=== PATIENT | female | born 2000 | race Caucasian/White ===

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

== ENCOUNTER → 2021-03-01 | Outpatient (CLI) | payer OTHER ==
[~2021-03-01] MED LIST changes: +ADV500INH INH; +ASCO500T PO
[2021-03-01 15:19] LABS: FOLATE 12.6 NG/ML
== END ==
LOC: M LAB 14:19
PROVIDERS: ATTEND Psychiatry & Neurology Neurology
DX: E53.8 Deficiency of other specified B group vitamins (principal); R26.89 Other abnormalities of gait and mobility

== ENCOUNTER → 2021-03-23 | Outpatient (CLI) | payer OTHER ==
[2021-03-23 13:46] LABS: INR 1.04; PARTIAL THROMBOPLASTIN TIME 29.6 SECONDS (24.2-38.5); PROTHROMBIN TIME 13.8 SECONDS (12.5-14.3)
[2021-03-23 14:15] LABS: ALBUMIN 4.5 GM/DL (3.2-5.2); ALT/SGPT 18 U/L (12-78); BILIRUBIN,DIRECT < 0.1 MG/DL (0.0-0.2); BILIRUBIN,TOTAL 0.3 MG/DL (0.2-1.0); CPK CREATINE PHOSPHOKINASE 45 U/L (26-192); FOLATE 17.2 NG/ML; IRON (FE) 79 UG/DL (50-170); PERCENT SATURATION 27.9 % (13.2-45.0); TOTAL IRON BINDING CAPACITY 283 UG/DL (250-450); TOTAL PROTEIN 7.6 GM/DL (6.4-8.2); VITAMIN B12 LEVEL 595 PG/ML
== END ==
LOC: M LAB 12:59
PROVIDERS: ATTEND Internal Medicine Gastroenterology
DX: R11.0 Nausea (principal)

== ENCOUNTER 2021-03-25 12:15 | Emergency (ER) | payer OTHER ==
[~2021-03-25] VITALS: Ht 172.7 cm; Wt 50.7 kg
[2021-03-25] MEDS ORDERED: ONDA4TAB6 (12:28)
[2021-03-25] MEDS ORDERED: MIRA3350 PO (12:28)
[2021-03-25] MEDS ORDERED: PEPC1TAB5 PO (12:28)
[2021-03-25] MEDS ORDERED: ACETAMINOPHEN TAB 650MG DOSE (2X325MG) PO ONE (13:05)
[2021-03-25] MEDS ORDERED: NS 1,000 ML IV ONE (13:05)
[2021-03-25 13:10] LABS: HEMATOCRIT 41.2 % (36.0-47.0); HEMOGLOBIN 13.8 g/dl (12.0-15.5); MEAN CORPUSCULAR HEMOGLOBIN 29.9 pg (27.0-33.0); MEAN CORPUSCULAR HGB CONC 33.5 g/dl (32.0-36.5); MEAN CORPUSCULAR VOLUME 89.4 fl (80.0-96.0); PLATELET COUNT, AUTOMATED 193 10^3/uL (150-450); RED BLOOD COUNT 4.61 10^6/uL (4.00-5.40); WHITE BLOOD COUNT 8.2 10^3/uL (4.0-10.0)
[2021-03-25 13:36] LABS: AMPHETAMINES LEVEL URINE NEGATIVE (NEGATIVE); BARBITURATES URINE NEGATIVE (NEGATIVE); BENZODIAZEPINES URINE NEGATIVE (NEGATIVE); CANNABINOIDS URINE NEGATIVE (NEGATIVE); COCAINE METABOLITE URINE NEGATIVE (NEGATIVE); METHADONE URINE NEGATIVE (NEGATIVE); OPIATES URINE NEGATIVE (NEGATIVE); PHENCYCLIDINE URINE NEGATIVE (NEGATIVE)
[2021-03-25 13:47] LABS: BLOOD UREA NITROGEN 6 MG/DL (7-18); CALCIUM LEVEL 9.1 MG/DL (8.5-10.1); CARBON DIOXIDE LEVEL 25 MEQ/L (21-32); CHLORIDE LEVEL 105 MEQ/L (98-107); CREATININE FOR GFR 0.72 MG/DL (0.55-1.30); FREE THYROXINE INDEX 1.7 % (1.3-4.8); GLUCOSE, FASTING 96 MG/DL (70-100); POTASSIUM SERUM 4.1 MEQ/L (3.5-5.1); SODIUM LEVEL 137 MEQ/L (136-145); T UPTAKE 26 % (30-39); THYROID STIMULATING HORMONE 0.772 uIU/ML (0.463-3.98); THYROXINE (T4) 6.4 UG/DL (6.0-11.6)
[2021-03-25 14:30] VITALS: BP 98/62
--- NOTE | 2021-03-25 17:14 | ECGEPIP ---
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
== END 2021-03-25 14:47 | disposition home or self-care (01) ==
LOC: M ED 12:15
DX: I49.8 Other specified cardiac arrhythmias (principal); R00.0 Tachycardia, unspecified; Z86.16 Personal history of COVID-19; Z82.49 Family history of ischemic heart disease and other diseases of the circulatory system; Z79.899 Other long term (current) drug therapy

== ENCOUNTER → 2021-03-28 | Outpatient (CLI) | payer OTHER ==
[~2021-03-28] MED LIST changes: +MIRA3350 PO; +ONDA4TAB6; +PEPC1TAB5 PO
== END ==
LOC: M LABSMTC 10:00
PROVIDERS: ATTEND Anesthesiology
DX: Z01.812 Encounter for preprocedural laboratory examination (principal); Z20.822 Contact with and (suspected) exposure to COVID-19

== ENCOUNTER 2021-04-02 13:43 | Day surgery (SDC) | payer OTHER ==
[~2021-04-02] VITALS: Ht 172.7 cm; Wt 48.1 kg
[~2021-04-02 13:43] MED LIST changes: +LIDOCAINE 2% 100MG/5ML SDV (FOR ANES.) As Ordered ONE; +NS 1,000 ML IV ONE; +propofoL 200 MG/20 ML VIAL As Ordered ONE
[2021-04-02] MEDS ORDERED: fentaNYL 100 MCG/2 ML INJECTION (J3010) As Ordered ONE (14:40)
[2021-04-02] MEDS ORDERED: LIDOCAINE 2% 100MG/5ML SDV (FOR ANES.) As Ordered ONE (15:09)
[2021-04-02] MEDS ORDERED: propofoL 200 MG/20 ML VIAL As Ordered ONE (15:09)
--- NOTE | 2021-04-02 15:28 | ROOR ---
Patient Name: Gerda Lee Procedure Date: 04/02/2021 2:59 PM Date of : 2000 Age: 20 Room: [facility] Gender: Female Note Status: Finalized Procedure: Upper GI endoscopy Indications: Dyspepsia, Weight loss Providers: Seth Mosquera MD Referring MD: Génesis Crane MD Requesting Provider: Medicines: Monitored Anesthesia Care Complications: No immediate complications. Procedure: Pre-Anesthesia Assessment: - Prior to the procedure, a History and Physical was performed, and patient medications and allergies were reviewed. The patient is competent. The risks and benefits of the procedure and the sedation options and risks were discussed with the patient. All questions were answered and informed consent was obtained. Patient identification and proposed procedure were verified by the physician, the nurse and the anesthesiologist in the procedure room. Mental Status Examination: alert and oriented. Airway Examination: normal oropharyngeal airway and neck mobility. Respiratory Examination: clear to auscultation. CV Examination: normal. Prophylactic Antibiotics: The patient does not require prophylactic antibiotics. Prior Anticoagulants: The patient has taken no previous anticoagulant or antiplatelet agents. ASA Grade Assessment: II - A patient with mild systemic disease. After reviewing the risks and benefits, the patient was deemed in satisfactory condition to undergo the procedure. The anesthesia plan was to use monitored anesthesia care (MAC). Immediately prior to administration of medications, the patient was re-assessed for adequacy to receive sedatives. The heart rate, respiratory rate, oxygen saturations, blood pressure, adequacy of pulmonary ventilation, and response to care were monitored throughout the procedure. The physical status of the patient was re-assessed after the procedure. The Endoscope was introduced through the mouth, and advanced to the second part of duodenum. The upper GI endoscopy was accomplished without difficulty. The patient tolerated the procedure well. Findings: The examined esophagus was normal. Scattered minimal inflammation characterized by erythema and granularity was found in the gastric antrum. Biopsies were taken with a cold forceps for Helicobacter pylori testing. Verification of patient identification for the specimen was done by the physician and nurse using the patient's name, date and medical record number. Estimated blood loss was minimal. The duodenal bulb, second portion of the duodenum, area of the papilla and third portion of the duodenum were normal. Biopsies for histology were taken with a cold forceps for evaluation of celiac disease. Impression: - Normal esophagus. - Gastritis. Biopsied. - Normal duodenal bulb, second portion of the duodenum, area of the papilla and third portion of the duodenum. Biopsied. Recommendation: - Patient has a contact number available for emergencies. The signs and symptoms of potential delayed complications were discussed with the patient. Return to normal activities tomorrow. Written discharge instructions were provided to the patient. - High fiber diet. - Continue present medications. - Await pathology results. - Return to GI clinic if persistent symptoms or new symptoms. - Telephone GI clinic for pathology results in 2 weeks. - Return to primary care physician. Procedure Code(s): --- Professional --- 01971, Esophagogastroduodenoscopy, flexible, transoral; with biopsy, single or multiple Diagnosis Code(s): --- Professional --- K29.70, Gastritis, unspecified, without bleeding R10.13, Epigastric pain R63.4, Abnormal weight loss CPT copyright 2019 [employer]. All rights reserved. The codes documented in this report are preliminary and upon camera repair technician review may be revised to meet current compliance requirements. Seth Mosquera MD Seth Mosquera MD 04/02/2021 3:27:50 PM Electronically signed by Seth Mosquera MD Number of Addenda: 0 Note Initiated On: 04/02/2021 2:59 PM Estimated Blood Loss: Estimated blood loss was minimal.
[2021-04-02 15:38] VITALS: BP 102/67
== END 2021-04-02 15:39 | disposition home or self-care (01) ==
LOC: M OPP 13:43
PROVIDERS: ATTEND Internal Medicine Gastroenterology
DX: K29.70 Gastritis, unspecified, without bleeding (principal); R10.13 Epigastric pain; R63.4 Abnormal weight loss; Z83.71 Family history of colonic polyps; Z79.899 Other long term (current) drug therapy
CPT/HCPCS: 43239; 88305; J3010

== ENCOUNTER → 2021-06-22 | Outpatient (CLI) | payer OTHER ==
[~2021-06-22] MED LIST changes: +AMIT-255 PO; +AMIT25TA17; -LIDOCAINE 2% 100MG/5ML SDV (FOR ANES.) As Ordered ONE; +METO5TAB2 PO; +MIRA1POW3 JT; +MIRA1POW3 PO; -NS 1,000 ML IV ONE; +PANT40TA29 PO; +PERCOCET PO; +PRUC2TAB; +PRUC2TAB PO; +PYRI60TA2; +PYRI60TA2 PO; +SIME40DR31 PO; -propofoL 200 MG/20 ML VIAL As Ordered ONE
[2021-06-22 18:27] LABS: BASO % 0.7 % (0.0-1.0); EOS # 0.1 10^3/uL (0.0-0.5); EOS % 2.4 % (0.0-3.0); HEMOGLOBIN 13.6 g/dl (12.0-15.5); LYMPH # 1.6 10^3/uL (1.5-5.0); LYMPH % 38.4 % (24.0-44.0); MEAN CORPUSCULAR HEMOGLOBIN 30.3 pg (27.0-33.0); MEAN CORPUSCULAR HGB CONC 33.2 g/dl (32.0-36.5); MEAN CORPUSCULAR VOLUME 91.3 fl (80.0-96.0); MONO # 0.4 10^3/uL (0.0-0.8); MONO % 8.8 % (2.0-8.0); NEUTROPHILS # 2.1 10^3/uL (1.5-8.5); NEUTROPHILS % 49.5 % (36.0-66.0); PLATELET COUNT, AUTOMATED 253 10^3/uL (150-450); RED BLOOD COUNT 4.49 10^6/uL (4.00-5.40); WHITE BLOOD COUNT 4.2 10^3/uL (4.0-10.0)
[2021-06-22 18:58] LABS: ALBUMIN 4.2 GM/DL (3.2-5.2); ALT/SGPT 23 U/L (12-78); BILIRUBIN,TOTAL 0.3 MG/DL (0.2-1.0); BLOOD UREA NITROGEN 10 MG/DL (7-18); CALCIUM LEVEL 9.3 MG/DL (8.5-10.1); CARBON DIOXIDE LEVEL 28 MEQ/L (21-32); CHLORIDE LEVEL 106 MEQ/L (98-107); CREATININE FOR GFR 0.64 MG/DL (0.55-1.30); FERRITIN 148 NG/ML (8-252); GLUCOSE, FASTING 90 MG/DL (70-100); IRON (FE) 78 UG/DL (50-170); PERCENT SATURATION 24.6 % (13.2-45.0); POTASSIUM SERUM 4.1 MEQ/L (3.5-5.1); SODIUM LEVEL 141 MEQ/L (136-145); TOTAL IRON BINDING CAPACITY 317 UG/DL (250-450); TOTAL PROTEIN 7.8 GM/DL (6.4-8.2)
== END ==
LOC: M LAB 16:57
PROVIDERS: ATTEND Internal Medicine Medical Oncology
DX: D50.9 Iron deficiency anemia, unspecified (principal)

== ENCOUNTER → 2021-08-31 | Outpatient (CLI) | payer OTHER ==
[~2021-08-31] MED LIST changes: -AMIT-255 PO; -AMIT25TA17; +E-Z-PAQUE 96% w/w SUSP 176GM BTL As Ordered ONE; -METO5TAB2 PO; -MIRA1POW3 JT; -MIRA1POW3 PO; -PANT40TA29 PO; -PERCOCET PO; -PRUC2TAB; -PRUC2TAB PO; -PYRI60TA2; -PYRI60TA2 PO; -SIME40DR31 PO
--- NOTE | 2021-08-31 16:48 | REP ---
INDICATION: K59.04 CHRONIC IDIOPATHIC CONSTIPATION. COMPARISON: None TECHNIQUE: This procedure was performed by YAMIL Bobo, under the direct supervision of Dr. Becker. Images were reviewed with Dr. Becker prior to dictation. Liquid barium was administered and the barium column was followed through the small bowel to the level of the terminal ileum. FINDINGS: The document processor film shows no organomegaly or pathological masses. The intestinal gas pattern is unremarkable. Small bowel transit time is approximately 180 minutes. During fluoroscopy gentle palpation shows all loops are freely movable and pliable. There is no fixed angulated loops. The small bowel mucosal pattern is normal in course and caliber. There is no transition to suggest a partial small bowel obstruction. Spot filming of the terminal ileum shows it to be unremarkable. IMPRESSION: Unremarkable small bowel follow-through with transit time of approximately 180 minutes. 0.8 minutes of fluoroscopy time was utilized for this procedure. Some fluoroscopic images are performed with last image hold technology. These images require no additional radiation. <Electronically signed by Yesica Summers > 08/31/21 [id number] <Electronically signed by Armen Becker > 08/31/21 [id number]
== END ==
LOC: M RAD 07:26
PROVIDERS: ATTEND Internal Medicine Gastroenterology
DX: K59.04 Chronic idiopathic constipation (principal)

== ENCOUNTER → 2021-09-14 | Outpatient (CLI) | payer OTHER ==
[~2021-09-14] MED LIST changes: -E-Z-PAQUE 96% w/w SUSP 176GM BTL As Ordered ONE
--- NOTE | 2021-09-14 14:01 | REP ---
INDICATION: K59.04 CHRONIC IDIOPATHIC CONSTIPATION. COMPARISON: None. TECHNIQUE/RADIOTRACER AND DOSE: Following the intravenous administration of 1.05 mCi technetium 99 M sulfur colloid in 2 scrambled eggs and 6 oz of water, multiple images of the upper abdomen are performed in the anterior and posterior projections for 90 minutes. FINDINGS: The gastric activity is measured. At the end of 90 minutes 22% of the ingested activity has emptied from the stomach. The T1/2 is 203 minutes which is elevated. IMPRESSION: Delayed gastric emptying. <Electronically signed by Armen Becker > 09/14/21 [id number]
== END ==
LOC: M RAD 11:30
PROVIDERS: ATTEND Internal Medicine Gastroenterology
DX: K59.04 Chronic idiopathic constipation (principal); K30 Functional dyspepsia
CPT/HCPCS: 78264; A9541

== ENCOUNTER 2021-12-29 13:57 | Inpatient (IN) | payer BC, SELFPAY ==
[~2021-12-29] VITALS: Ht 172.7 cm; Wt 45.9 kg
[2021-12-29] MEDS: ADVAIR HFA 230/21MCG INHALER INH SCH (01:28)
[~2021-12-29 13:57] MED LIST changes: -AMIT-255 PO; -AMIT25TA17; -MIRA1POW3 PO; -PRUC2TAB; -PRUC2TAB PO; -PYRI60TA2; -PYRI60TA2 PO
[2021-12-29] MEDS ORDERED: PRUC2TAB (14:04)
[2021-12-29] MEDS ORDERED: PYRI60TA2 (14:04)
[2021-12-29] MEDS ORDERED: AMIT25TA17 (14:04)
[2021-12-29] MEDS ORDERED: METOCLOPRAMIDE INJ 10MG/2ML VIAL (J2765 PER 1) IV ONE (17:45)
[2021-12-29] MEDS ORDERED: NS 1,000 ML IV ONE (17:45)
[2021-12-29 18:57] LABS: BASO % 0.4 % (0.0-1.0); EOS % 0.2 % (0.0-3.0); HEMOGLOBIN 14.9 g/dl (12.0-15.5); LYMPH # 1.7 10^3/uL (1.5-5.0); MEAN CORPUSCULAR HEMOGLOBIN 29.8 pg (27.0-33.0); MEAN CORPUSCULAR HGB CONC 33.9 g/dl (32.0-36.5); MONO # 0.3 10^3/uL (0.0-0.8); MONO % 5.6 % (2.0-8.0); NEUTROPHILS # 3.2 10^3/uL (1.5-8.5); NEUTROPHILS % 61.6 % (36.0-66.0); PLATELET COUNT, AUTOMATED 195 10^3/uL (150-450); WHITE BLOOD COUNT 5.2 10^3/uL (4.0-10.0)
[2021-12-29 19:08] LABS: ALBUMIN 4.6 GM/DL (3.2-5.2); ALT/SGPT 46 U/L (12-78); BILIRUBIN,TOTAL 0.7 MG/DL (0.2-1.0); BLOOD UREA NITROGEN 21 MG/DL (7-18); CALCIUM LEVEL 9.6 MG/DL (8.5-10.1); CARBON DIOXIDE LEVEL 22 MEQ/L (21-32); CHLORIDE LEVEL 100 MEQ/L (98-107); CREATININE FOR GFR 0.75 MG/DL (0.55-1.30); GLUCOSE, FASTING 49 MG/DL (70-100); POTASSIUM SERUM 4.5 MEQ/L (3.5-5.1); SODIUM LEVEL 137 MEQ/L (136-145); TOTAL PROTEIN 8.4 GM/DL (6.4-8.2)
[2021-12-29] MEDS ORDERED: DEXTROSE 15GM (40%) TUBE (GLUTOSE 15) PO ONE (20:35)
[2021-12-29] MEDS ORDERED: GLUCOSE 4GM CHEW TABLET PO ONE (20:40)
[2021-12-29] MEDS ORDERED: GLUCOSE 4GM CHEW TABLET PO PRN (21:50)
[2021-12-29] MEDS ORDERED: GLUCAGON INJ 1MG VIAL SC PRN (21:50)
[2021-12-29] MEDS ORDERED: DEXTROSE 50% 50 ML SYRINGE IV PRN (21:50)
[2021-12-29] MEDS ORDERED: ISOVUE-370 76% 100ML VIAL As Ordered ONE (22:21)
[2021-12-29] MEDS ORDERED: MIRA1POW3 PO (22:24)
[2021-12-29] MEDS ORDERED: PRUC2TAB PO (22:24)
[2021-12-29] MEDS ORDERED: PYRI60TA2 PO (22:24)
[2021-12-29] MEDS ORDERED: AMIT-255 PO (22:24)
[2021-12-29] MEDS ORDERED: HOME MED LIST COMPLETE! XX SCH (22:25)
[2021-12-29] MEDS ORDERED: LEVALBUTEROL HFA 45MCG/ACT 15 GM INHALER INH PRN (22:55)
[2021-12-29] MEDS: D5W/0.9% SODIUM CHLORIDE 1,000 ML IV SCH (23:18)
[2021-12-30] MEDS ORDERED: METOCLOPRAMIDE INJ 10MG/2ML VIAL (J2765 PER 1) IV SCH
[2021-12-30] MEDS: PRIMIDONE 50MG TAB PO SCH ×2 (01:26→20:24)
[2021-12-30] MEDS: METOCLOPRAMIDE INJ 10MG/2ML VIAL (J2765 PER 1) IV SCH ×4 (01:26→19:00)
[2021-12-30] MEDS: PYRIDOSTIGMINE 60MG TABLET PO SCH ×4 (01:26→20:24)
[2021-12-30] MEDS: D5W/0.9% SODIUM CHLORIDE 1,000 ML IV SCH ×2 (07:50→18:53)
[2021-12-30] MEDS: ADVAIR HFA 230/21MCG INHALER INH SCH ×2 (08:02→20:23)
[2021-12-30] MEDS: FAMOTIDINE 20 MG TAB PO SCH (08:07)
[2021-12-30] MEDS: ASCORBIC ACID 500 MG TAB PO SCH (08:08)
[2021-12-30] MEDS: CYANOCOBALAMIN 500 MCG TAB PO SCH (08:08)
[2021-12-30] MEDS ORDERED: GLUCAGON INJ 1MG VIAL IV STA (11:03)
[2021-12-30] MEDS ORDERED: FUROSEMIDE 20MG/2ML VIAL (J1940) IV ONE (11:05)
[2021-12-30 18:00] VITALS: BP 114/81
[2021-12-30] MEDS: PANTOPRAZOLE 40MG VIAL (C9113 PER 1) IV SCH (20:25)
[2021-12-30 22:00] VITALS: BP 102/48
[2021-12-31] MEDS: D5W/0.9% SODIUM CHLORIDE 1,000 ML IV SCH ×2 (04:08→13:36)
[2021-12-31 06:00] VITALS: BP 102/64
[2021-12-31] MEDS: ADVAIR HFA 230/21MCG INHALER INH SCH ×2 (07:30→19:11)
[2021-12-31] MEDS: PANTOPRAZOLE 40MG VIAL (C9113 PER 1) IV SCH ×2 (09:58→21:58)
[2021-12-31] MEDS: FAMOTIDINE 20 MG TAB PO SCH (09:58)
[2021-12-31] MEDS: CYANOCOBALAMIN 500 MCG TAB PO SCH (09:59)
[2021-12-31] MEDS: PYRIDOSTIGMINE 60MG TABLET PO SCH ×3 (09:59→21:58)
[2021-12-31] MEDS: ASCORBIC ACID 500 MG TAB PO SCH (09:59)
[2021-12-31 14:00] VITALS: BP 112/77
[2021-12-31] MEDS ORDERED: ceFAZolin SOD 2 GM in IV 1 EA IV ONE (15:05)
[2021-12-31] MEDS ORDERED: ceFAZolin 2 GM/D5W 50 ML IV BAG (J0690 PER 500MG) As Ordered ONE (15:07)
[2021-12-31] MEDS ORDERED: ROCURONIUM BROMIDE 50 MG/5 ML VIAL As Ordered ONE (15:14)
[2021-12-31] MEDS ORDERED: SUCCINYLCHOLINE 100 MG/5 ML SYRINGE (J0330) As Ordered ONE (15:14)
[2021-12-31] MEDS ORDERED: ONDANSETRON 4MG/2ML VIAL As Ordered ONE (15:14)
[2021-12-31] MEDS ORDERED: fentaNYL 100 MCG/2 ML INJECTION As Ordered ONE (15:14)
[2021-12-31] MEDS ORDERED: dexameTHASONE 4 MG/ML 1ML VIAL (J1100 PER 1MG) As Ordered ONE (15:14)
[2021-12-31] MEDS ORDERED: MIDAZOLAM INJ 2MG/2ML VIAL (J2250 PER 1MG) As Ordered ONE (15:14)
[2021-12-31] MEDS ORDERED: propofoL 200 MG/20 ML VIAL As Ordered ONE (15:14)
[2021-12-31] MEDS ORDERED: LIDOCAINE 2% 100MG/5ML SDV (FOR ANES.) As Ordered ONE (15:14)
[2021-12-31] MEDS ORDERED: SUGAMMADEX SODIUM 500 MG/5 ML VIAL (BRIDION) As Ordered ONE (15:14)
[2021-12-31 16:12] LABS: C-PEPTIDE 0.3 ng/mL (1.1-4.4); INSULIN LEVEL 0.9 uIU/mL (2.6-24.9)
[2021-12-31] MEDS ORDERED: FLEET ENEMA PR ONE (17:45)
[2021-12-31] MEDS ORDERED: ONDANSETRON 4MG/2ML VIAL IV PRN (18:00)
[2021-12-31] MEDS ORDERED: MEPERIDINE INJ 25 MG/ML VIAL (J2175) IV PRN (18:00)
[2021-12-31] MEDS ORDERED: LR 1,000 ML IV SCH (18:00)
[2021-12-31] MEDS: fentaNYL 100 MCG/2 ML INJECTION IV PRN ×4 (18:06→18:25)
[2021-12-31 20:30] VITALS: BP 96/62
[2021-12-31 21:30] VITALS: BP 106/73
[2021-12-31] MEDS: AMITRIPTYLINE 25MG TABLET PO SCH (21:58)
[2021-12-31] MEDS: PERCOCET 5MG/325MG TAB PO PRN (21:58)
[2021-12-31] MEDS: PRIMIDONE 50MG TAB PO SCH (21:58)
[2021-12-31] MEDS: HEPARIN SOD (PORCINE) 5000UNITS/ML 1ML VIAL/SYRINGE SQ SCH (21:59)
[2021-12-31] MEDS ORDERED: ONDANSETRON 4 MG TAB PO PRN (23:20)
[2021-12-31] MEDS ORDERED: METOCLOPRAMIDE 5 MG TAB PO PRN (23:20)
[2021-12-31] MEDS ORDERED: NEOSPORIN TOP OINT 15GM TOP PRN (23:20)
[2021-12-31 23:50] VITALS: BP 96/56
[2022-01-01 02:00] VITALS: BP 97/59
[2022-01-01] MEDS: D5W/0.9% SODIUM CHLORIDE 1,000 ML IV SCH ×3 (03:10→20:45)
[2022-01-01 06:00] VITALS: BP 101/65
[2022-01-01] MEDS: PERCOCET 5MG/325MG TAB PO PRN ×3 (06:41→20:52)
[2022-01-01 07:39] LABS: HEMATOCRIT 35.4 % (36.0-47.0); HEMOGLOBIN 11.9 g/dl (12.0-15.5); MEAN CORPUSCULAR HEMOGLOBIN 30.1 pg (27.0-33.0); MEAN CORPUSCULAR HGB CONC 33.6 g/dl (32.0-36.5); MEAN CORPUSCULAR VOLUME 89.6 fl (80.0-96.0); PLATELET COUNT, AUTOMATED 161 10^3/uL (150-450); RED BLOOD COUNT 3.95 10^6/uL (4.00-5.40); WHITE BLOOD COUNT 7.4 10^3/uL (4.0-10.0)
[2022-01-01] MEDS: ADVAIR HFA 230/21MCG INHALER INH SCH ×2 (07:39→19:41)
[2022-01-01 08:12] LABS: BLOOD UREA NITROGEN 2 MG/DL (7-18); CALCIUM LEVEL 9.3 MG/DL (8.5-10.1); CARBON DIOXIDE LEVEL 27 MEQ/L (21-32); CHLORIDE LEVEL 104 MEQ/L (98-107); GLUCOSE, FASTING 107 MG/DL (70-100); MAGNESIUM LEVEL 1.8 MG/DL (1.8-2.4); PHOSPHORUS LEVEL 3.5 MG/DL (2.5-4.9); POTASSIUM SERUM 3.6 MEQ/L (3.5-5.1); SODIUM LEVEL 137 MEQ/L (136-145)
[2022-01-01 10:00] VITALS: BP_SYST 117; BP_SYST 90; BP_DIAS 56; BP_DIAS 69
[2022-01-01] MEDS: FAMOTIDINE 20 MG TAB PO SCH (10:37)
[2022-01-01] MEDS: ASCORBIC ACID 500 MG TAB PO SCH (10:37)
[2022-01-01] MEDS: PANTOPRAZOLE 40MG VIAL (C9113 PER 1) IV SCH (10:37)
[2022-01-01] MEDS: HEPARIN SOD (PORCINE) 5000UNITS/ML 1ML VIAL/SYRINGE SQ SCH ×2 (10:38→20:44)
[2022-01-01] MEDS: CYANOCOBALAMIN 500 MCG TAB PO SCH (10:38)
[2022-01-01] MEDS: PYRIDOSTIGMINE 60MG TABLET PO SCH ×3 (10:45→20:45)
[2022-01-01 14:00] VITALS: BP 96/69
[2022-01-01 18:00] VITALS: BP 95/56
[2022-01-01] MEDS ORDERED: MIRALAX *UNIT DOSE* 17GM PACKET PO PRN (20:20)
[2022-01-01] MEDS ORDERED: MOM 30ML SUSPENSION UDC PO PRN (20:20)
[2022-01-01] MEDS: DOCUSATE SODIUM 100MG CAPSULE PO SCH (20:44)
[2022-01-01] MEDS: PRIMIDONE 50MG TAB PO SCH (20:45)
[2022-01-01] MEDS: AMITRIPTYLINE 25MG TABLET PO SCH (20:45)
[2022-01-01 22:00] VITALS: BP 104/53
[2022-01-02] MEDS: D5W/0.9% SODIUM CHLORIDE 1,000 ML IV SCH ×2 (04:34→15:03)
[2022-01-02] MEDS: PERCOCET 5MG/325MG TAB PO PRN ×2 (04:34→15:03)
[2022-01-02 06:00] VITALS: BP 105/72
[2022-01-02 06:56] LABS: BASO % 0.3 % (0.0-1.0); EOS % 0.3 % (0.0-3.0); HEMATOCRIT 31.8 % (36.0-47.0); HEMOGLOBIN 10.6 g/dl (12.0-15.5); LYMPH # 1.3 10^3/uL (1.5-5.0); LYMPH % 38.4 % (24.0-44.0); MEAN CORPUSCULAR HEMOGLOBIN 30.5 pg (27.0-33.0); MEAN CORPUSCULAR HGB CONC 33.3 g/dl (32.0-36.5); MEAN CORPUSCULAR VOLUME 91.4 fl (80.0-96.0); MONO # 0.3 10^3/uL (0.0-0.8); MONO % 9.3 % (2.0-8.0); NEUTROPHILS # 1.8 10^3/uL (1.5-8.5); NEUTROPHILS % 51.4 % (36.0-66.0); PLATELET COUNT, AUTOMATED 125 10^3/uL (150-450); RED BLOOD COUNT 3.48 10^6/uL (4.00-5.40); WHITE BLOOD COUNT 3.4 10^3/uL (4.0-10.0)
[2022-01-02 07:15] LABS: BLOOD UREA NITROGEN 2 MG/DL (7-18); CALCIUM LEVEL 8.4 MG/DL (8.5-10.1); CARBON DIOXIDE LEVEL 26 MEQ/L (21-32); CHLORIDE LEVEL 109 MEQ/L (98-107); CREATININE FOR GFR 0.39 MG/DL (0.55-1.30); GLUCOSE, FASTING 98 MG/DL (70-100); PHOSPHORUS LEVEL 3.8 MG/DL (2.5-4.9); POTASSIUM SERUM 3.6 MEQ/L (3.5-5.1); SODIUM LEVEL 142 MEQ/L (136-145)
[2022-01-02] MEDS: ADVAIR HFA 230/21MCG INHALER INH SCH ×2 (07:30→19:40)
[2022-01-02] MEDS: DOCUSATE SODIUM 100MG CAPSULE PO SCH ×2 (11:03→20:28)
[2022-01-02] MEDS: PANTOPRAZOLE 40MG TAB (PROTONIX) PO SCH (11:03)
[2022-01-02] MEDS: FAMOTIDINE 20 MG TAB PO SCH (11:03)
[2022-01-02] MEDS: CYANOCOBALAMIN 500 MCG TAB PO SCH (11:03)
[2022-01-02] MEDS: PYRIDOSTIGMINE 60MG TABLET PO SCH ×3 (11:03→20:28)
[2022-01-02] MEDS: ASCORBIC ACID 500 MG TAB PO SCH (11:03)
[2022-01-02] MEDS: HEPARIN SOD (PORCINE) 5000UNITS/ML 1ML VIAL/SYRINGE SQ SCH ×2 (11:04→20:28)
[2022-01-02 14:00] VITALS: BP 109/80
[2022-01-02] MEDS ORDERED: ERYTHROMYCIN LACTOBIONATE IV ONE (19:00)
[2022-01-02] MEDS ORDERED: NS IV ONE (19:00)
[2022-01-02] MEDS: AMITRIPTYLINE 25MG TABLET PO SCH (20:28)
[2022-01-02 21:00] VITALS: BP 105/60
[2022-01-03] VITALS (9 sets, daily range): BP systolic 94–118; BP diastolic 62–79; O2SAT 95
[2022-01-03] MEDS: D5W/0.9% SODIUM CHLORIDE 1,000 ML IV SCH ×3 (03:12→22:01)
[2022-01-03] MEDS: PRIMIDONE 50MG TAB PO SCH ×2 (03:12→22:19)
[2022-01-03] MEDS: ADVAIR HFA 230/21MCG INHALER INH SCH ×2 (05:49→20:00)
[2022-01-03 06:37] LABS: BASO % 0.3 % (0.0-1.0); EOS % 0.3 % (0.0-3.0); HEMATOCRIT 37.5 % (36.0-47.0); HEMOGLOBIN 12.1 g/dl (12.0-15.5); LYMPH # 1.5 10^3/uL (1.5-5.0); LYMPH % 38.9 % (24.0-44.0); MEAN CORPUSCULAR HGB CONC 32.3 g/dl (32.0-36.5); MEAN CORPUSCULAR VOLUME 92.8 fl (80.0-96.0); MONO # 0.3 10^3/uL (0.0-0.8); NEUTROPHILS % 52.2 % (36.0-66.0); PLATELET COUNT, AUTOMATED 145 10^3/uL (150-450); RED BLOOD COUNT 4.04 10^6/uL (4.00-5.40); WHITE BLOOD COUNT 3.7 10^3/uL (4.0-10.0)
[2022-01-03 06:58] LABS: BLOOD UREA NITROGEN 2 MG/DL (7-18); CALCIUM LEVEL 9.2 MG/DL (8.5-10.1); CARBON DIOXIDE LEVEL 29 MEQ/L (21-32); CHLORIDE LEVEL 107 MEQ/L (98-107); CREATININE FOR GFR 0.54 MG/DL (0.55-1.30); GLUCOSE, FASTING 100 MG/DL (70-100); MAGNESIUM LEVEL 2.1 MG/DL (1.8-2.4); PHOSPHORUS LEVEL 4.2 MG/DL (2.5-4.9); POTASSIUM SERUM 3.5 MEQ/L (3.5-5.1); SODIUM LEVEL 142 MEQ/L (136-145)
[2022-01-03] MEDS: DOCUSATE SODIUM 100MG CAPSULE PO SCH ×2 (08:32→21:00)
[2022-01-03] MEDS: CYANOCOBALAMIN 500 MCG TAB PO SCH (08:32)
[2022-01-03] MEDS: ASCORBIC ACID 500 MG TAB PO SCH (08:32)
[2022-01-03] MEDS: PYRIDOSTIGMINE 60MG TABLET PO SCH ×3 (08:32→21:00)
[2022-01-03] MEDS: PANTOPRAZOLE 40MG TAB (PROTONIX) PO SCH (08:32)
[2022-01-03] MEDS: FAMOTIDINE 20 MG TAB PO SCH (08:32)
[2022-01-03] MEDS: HEPARIN SOD (PORCINE) 5000UNITS/ML 1ML VIAL/SYRINGE SQ SCH ×2 (08:33→21:00)
[2022-01-03] MEDS ORDERED: propofoL 200 MG/20 ML VIAL As Ordered ONE ×4 (17:05→19:26)
[2022-01-03] MEDS ORDERED: fentaNYL 100 MCG/2 ML INJECTION As Ordered ONE (17:05)
[2022-01-03] MEDS ORDERED: MIDAZOLAM INJ 2MG/2ML VIAL (J2250 PER 1MG) As Ordered ONE (17:05)
[2022-01-03] MEDS ORDERED: LIDOCAINE 2% 100MG/5ML SDV (FOR ANES.) As Ordered ONE (17:52)
[2022-01-03] MEDS ORDERED: fentaNYL 100 MCG/2 ML INJECTION IV PRN (20:10)
[2022-01-03] MEDS ORDERED: ONDANSETRON 4MG/2ML VIAL IV PRN (20:10)
[2022-01-03] MEDS ORDERED: oxyCODONE 5MG TAB PO PRN (20:10)
[2022-01-03] MEDS ORDERED: LR 1,000 ML IV SCH (20:10)
[2022-01-03] MEDS ORDERED: ALBUTEROL SULFATE 2.5 MG/0.5 ML INH NEB SOLN NEB ONE (20:35)
[2022-01-03] MEDS: AMITRIPTYLINE 25MG TABLET PO SCH (21:00)
[2022-01-03] MEDS: PERCOCET 5MG/325MG TAB PO PRN (22:23)
[2022-01-03] MEDS: MORPHINE 4 MG/ML 1ML VIAL/SYRINGE (J2270) IV PRN (23:06)
[2022-01-04] VITALS (9 sets, daily range): BP systolic 101–113; BP diastolic 63–74; O2SAT 96
[2022-01-04 06:19] LABS: HEMATOCRIT 34.1 % (36.0-47.0); HEMOGLOBIN 11.2 g/dl (12.0-15.5); MEAN CORPUSCULAR HEMOGLOBIN 30.2 pg (27.0-33.0); MEAN CORPUSCULAR HGB CONC 32.8 g/dl (32.0-36.5); MEAN CORPUSCULAR VOLUME 91.9 fl (80.0-96.0); PLATELET COUNT, AUTOMATED 149 10^3/uL (150-450); RED BLOOD COUNT 3.71 10^6/uL (4.00-5.40); WHITE BLOOD COUNT 10.1 10^3/uL (4.0-10.0)
[2022-01-04 06:53] LABS: BLOOD UREA NITROGEN 3 MG/DL (7-18); CALCIUM LEVEL 8.4 MG/DL (8.5-10.1); CARBON DIOXIDE LEVEL 28 MEQ/L (21-32); CHLORIDE LEVEL 106 MEQ/L (98-107); CREATININE FOR GFR 0.45 MG/DL (0.55-1.30); GLUCOSE, FASTING 105 MG/DL (70-100); MAGNESIUM LEVEL 1.7 MG/DL (1.8-2.4); PHOSPHORUS LEVEL 3.2 MG/DL (2.5-4.9); POTASSIUM SERUM 3.9 MEQ/L (3.5-5.1); SODIUM LEVEL 139 MEQ/L (136-145)
[2022-01-04] MEDS: ADVAIR HFA 230/21MCG INHALER INH SCH ×2 (07:45→21:01)
[2022-01-04] MEDS: D5W/0.9% SODIUM CHLORIDE 1,000 ML IV SCH ×2 (07:56→17:50)
[2022-01-04] MEDS: PANTOPRAZOLE 40MG TAB (PROTONIX) PO SCH (08:06)
[2022-01-04] MEDS: ASCORBIC ACID 500 MG TAB PO SCH (08:06)
[2022-01-04] MEDS: DOCUSATE SODIUM 100MG CAPSULE PO SCH (08:06)
[2022-01-04] MEDS: CYANOCOBALAMIN 500 MCG TAB PO SCH (08:06)
[2022-01-04] MEDS: PYRIDOSTIGMINE 60MG TABLET PO SCH (08:06)
[2022-01-04] MEDS: FAMOTIDINE 20 MG TAB PO SCH (08:06)
[2022-01-04] MEDS: HEPARIN SOD (PORCINE) 5000UNITS/ML 1ML VIAL/SYRINGE SQ SCH ×2 (08:07→21:00)
[2022-01-04] MEDS: PERCOCET 5MG/325MG TAB PO PRN (08:24)
[2022-01-04] MEDS ORDERED: ISOVUE-370 76% 100ML VIAL As Ordered ONE (09:49)
[2022-01-04] MEDS: PIPERACILLIN/TAZOBACTAM SOD 4.5 GM in D5W MINI-BAG PLUS 50 ML IV SCH ×3 (12:15→23:24)
[2022-01-04] MEDS ORDERED: VANCOMYCIN HCL 1,000 MG, VIAL MATE ADAPTER 1 EACH in NS 250 ML IV ONE (13:00)
[2022-01-04] MEDS ORDERED: PYRIDOSTIGMINE 60MG TABLET GT SCH (16:00)
[2022-01-04] MEDS: NEOSPORIN TOP OINT 15GM TOP SCH (16:50)
[2022-01-04] MEDS ORDERED: METOCLOPRAMIDE INJ 10MG/2ML VIAL (J2765 PER 1) IV PRN (17:50)
[2022-01-04] MEDS ORDERED: ONDANSETRON 4 MG ORAL DISINTEGRATING TAB JT PRN (17:51)
[2022-01-04] MEDS ORDERED: METOCLOPRAMIDE 5 MG TAB JT PRN (18:01)
[2022-01-04] MEDS ORDERED: PERCOCET 5MG/325MG TAB JT PRN (18:02)
[2022-01-04] MEDS ORDERED: MIRALAX *UNIT DOSE* 17GM PACKET JT PRN (18:07)
[2022-01-04] MEDS: MAG SULF 1GM/100ML (MAG RUN) 1 GM in IV 1 EA IV SCH ×2 (19:38→20:45)
[2022-01-04] MEDS: DOCUSATE SOD LIQ 100MG/10ML UDC JT SCH (20:58)
[2022-01-04] MEDS: PRIMIDONE 50MG TAB JT SCH (20:58)
[2022-01-04] MEDS: PYRIDOSTIGMINE 60MG TABLET JT SCH (20:59)
[2022-01-04] MEDS: AMITRIPTYLINE 25MG TABLET JT SCH (20:59)
[2022-01-04] MEDS ORDERED: DOCUSATE SOD LIQ 100MG/10ML UDC PO SCH (21:00)
[2022-01-04] MEDS: VANCOMYCIN HCL 750 MG, VIAL MATE ADAPTER 1 EACH in NS 250 ML IV SCH (22:01)
[2022-01-05] VITALS (8 sets, daily range): BP systolic 107–111; BP diastolic 64–75; O2SAT 97
[2022-01-05] MEDS: D5W/0.9% SODIUM CHLORIDE 1,000 ML IV SCH ×2 (02:47→14:25)
[2022-01-05] MEDS: VANCOMYCIN HCL 750 MG, VIAL MATE ADAPTER 1 EACH in NS 250 ML IV SCH (04:33)
[2022-01-05] MEDS: PIPERACILLIN/TAZOBACTAM SOD 4.5 GM in D5W MINI-BAG PLUS 50 ML IV SCH ×3 (05:44→17:04)
[2022-01-05] MEDS: ADVAIR HFA 230/21MCG INHALER INH SCH ×2 (07:39→20:01)
[2022-01-05 08:07] LABS: BLOOD UREA NITROGEN 4 MG/DL (7-18); CALCIUM LEVEL 8.3 MG/DL (8.5-10.1); CARBON DIOXIDE LEVEL 29 MEQ/L (21-32); CHLORIDE LEVEL 107 MEQ/L (98-107); CREATININE FOR GFR 0.61 MG/DL (0.55-1.30); GLUCOSE, FASTING 98 MG/DL (70-100); POTASSIUM SERUM 3.3 MEQ/L (3.5-5.1); SODIUM LEVEL 141 MEQ/L (136-145)
[2022-01-05 08:27] LABS: MAGNESIUM LEVEL 2.4 MG/DL (1.8-2.4)
[2022-01-05 08:30] LABS: BASO % 0.5 % (0.0-1.0); EOS # 0.1 10^3/uL (0.0-0.5); EOS % 1.7 % (0.0-3.0); HEMATOCRIT 33.2 % (36.0-47.0); LYMPH # 1.3 10^3/uL (1.5-5.0); LYMPH % 20.1 % (24.0-44.0); MEAN CORPUSCULAR HEMOGLOBIN 30.2 pg (27.0-33.0); MEAN CORPUSCULAR HGB CONC 33.1 g/dl (32.0-36.5); MEAN CORPUSCULAR VOLUME 91.2 fl (80.0-96.0); MONO # 0.4 10^3/uL (0.0-0.8); MONO % 5.7 % (2.0-8.0); NEUTROPHILS # 4.6 10^3/uL (1.5-8.5); NEUTROPHILS % 71.7 % (36.0-66.0); PLATELET COUNT, AUTOMATED 150 10^3/uL (150-450); RED BLOOD COUNT 3.64 10^6/uL (4.00-5.40); WHITE BLOOD COUNT 6.4 10^3/uL (4.0-10.0)
[2022-01-05] MEDS ORDERED: POTASSIUM CHLORIDE 10% LIQ 20 MEQ/15 ML UDC JT ONE (09:00)
[2022-01-05] MEDS ORDERED: FAMOTIDINE INJ 20MG/2ML VIAL (S0028 PER 1) IV SCH (09:00)
[2022-01-05] MEDS: CYANOCOBALAMIN 500 MCG TAB JT SCH (10:12)
[2022-01-05] MEDS: FAMOTIDINE 20 MG TAB JT SCH (10:12)
[2022-01-05] MEDS: PRIMIDONE 50MG TAB JT SCH (10:12)
[2022-01-05] MEDS: DOCUSATE SOD LIQ 100MG/10ML UDC JT SCH ×2 (10:13→20:59)
[2022-01-05] MEDS: ASCORBIC ACID 500 MG TAB JT SCH (10:13)
[2022-01-05] MEDS: PANTOPRAZOLE 40MG VIAL (C9113 PER 1) IV SCH (10:14)
[2022-01-05] MEDS: HEPARIN SOD (PORCINE) 5000UNITS/ML 1ML VIAL/SYRINGE SQ SCH ×2 (10:14→20:25)
[2022-01-05] MEDS: PYRIDOSTIGMINE 60MG TABLET JT SCH ×3 (10:22→20:59)
[2022-01-05] MEDS: NEOSPORIN TOP OINT 15GM TOP SCH (10:23)
[2022-01-05] MEDS: MORPHINE 4 MG/ML 1ML VIAL/SYRINGE (J2270) IV PRN (13:50)
[2022-01-05] MEDS: DOXYCYCLINE HYCLATE 100 MG in D5W MINI-BAG PLUS 100 ML IV SCH (14:25)
[2022-01-05] MEDS ORDERED: LIDOCAINE 1% MDV 20ML VIAL As Ordered ONE (14:29)
[2022-01-05] MEDS: AMITRIPTYLINE 25MG TABLET JT SCH (21:00)
[2022-01-06] MEDS: PIPERACILLIN/TAZOBACTAM SOD 4.5 GM in D5W MINI-BAG PLUS 50 ML IV SCH ×5 (00:07→23:46)
[2022-01-06] MEDS: DOXYCYCLINE HYCLATE 100 MG in D5W MINI-BAG PLUS 100 ML IV SCH ×2 (01:30→15:08)
[2022-01-06] MEDS: D5W/0.9% SODIUM CHLORIDE 1,000 ML IV SCH ×2 (03:07→10:11)
[2022-01-06 06:00] VITALS: BP 100/66
[2022-01-06 06:51] LABS: BASO % 0.5 % (0.0-1.0); EOS # 0.2 10^3/uL (0.0-0.5); EOS % 3.7 % (0.0-3.0); HEMATOCRIT 31.4 % (36.0-47.0); HEMOGLOBIN 10.5 g/dl (12.0-15.5); LYMPH % 22.1 % (24.0-44.0); MEAN CORPUSCULAR HEMOGLOBIN 29.9 pg (27.0-33.0); MEAN CORPUSCULAR HGB CONC 33.4 g/dl (32.0-36.5); MEAN CORPUSCULAR VOLUME 89.5 fl (80.0-96.0); MONO # 0.4 10^3/uL (0.0-0.8); MONO % 8.2 % (2.0-8.0); NEUTROPHILS # 2.8 10^3/uL (1.5-8.5); PLATELET COUNT, AUTOMATED 161 10^3/uL (150-450); RED BLOOD COUNT 3.51 10^6/uL (4.00-5.40); WHITE BLOOD COUNT 4.3 10^3/uL (4.0-10.0)
[2022-01-06 07:12] LABS: ALBUMIN 2.8 GM/DL (3.2-5.2); ALT/SGPT 63 U/L (12-78); BILIRUBIN,TOTAL 0.5 MG/DL (0.2-1.0); BLOOD UREA NITROGEN 5 MG/DL (7-18); CALCIUM LEVEL 8.6 MG/DL (8.5-10.1); CARBON DIOXIDE LEVEL 27 MEQ/L (21-32); CHLORIDE LEVEL 107 MEQ/L (98-107); CREATININE FOR GFR 0.63 MG/DL (0.55-1.30); GLUCOSE, FASTING 79 MG/DL (70-100); MAGNESIUM LEVEL 2.2 MG/DL (1.8-2.4); POTASSIUM SERUM 3.7 MEQ/L (3.5-5.1); SODIUM LEVEL 141 MEQ/L (136-145); TOTAL PROTEIN 6.1 GM/DL (6.4-8.2)
[2022-01-06 08:00] VITALS: BP 112/74
[2022-01-06] MEDS: ADVAIR HFA 230/21MCG INHALER INH SCH ×2 (08:10→20:06)
[2022-01-06] MEDS: CYANOCOBALAMIN 500 MCG TAB JT SCH (08:15)
[2022-01-06] MEDS: NEOSPORIN TOP OINT 15GM TOP SCH (08:16)
[2022-01-06] MEDS: FAMOTIDINE 20 MG TAB JT SCH (08:16)
[2022-01-06] MEDS: PYRIDOSTIGMINE 60MG TABLET JT SCH ×3 (08:16→21:43)
[2022-01-06] MEDS: ASCORBIC ACID 500 MG TAB JT SCH (08:16)
[2022-01-06] MEDS: PANTOPRAZOLE 40MG VIAL (C9113 PER 1) IV SCH (08:17)
[2022-01-06] MEDS: DOCUSATE SOD LIQ 100MG/10ML UDC JT SCH ×2 (08:17→21:44)
[2022-01-06] MEDS: HEPARIN SOD (PORCINE) 5000UNITS/ML 1ML VIAL/SYRINGE SQ SCH ×2 (08:17→21:43)
[2022-01-06 09:50] VITALS: BP 107/70
[2022-01-06] MEDS: PRIMIDONE 50MG TAB JT SCH (21:44)
[2022-01-06] MEDS: AMITRIPTYLINE 25MG TABLET JT SCH (21:44)
[2022-01-06 22:00] VITALS: BP 101/69
[2022-01-07] MEDS: DOXYCYCLINE HYCLATE 100 MG in D5W MINI-BAG PLUS 100 ML IV SCH ×2 (01:40→13:42)
[2022-01-07] MEDS: D5W/0.9% SODIUM CHLORIDE 1,000 ML IV SCH ×3 (01:42→15:50)
[2022-01-07 04:00] VITALS: BP 102/60
[2022-01-07] MEDS: PIPERACILLIN/TAZOBACTAM SOD 4.5 GM in D5W MINI-BAG PLUS 50 ML IV SCH ×2 (05:17→12:30)
[2022-01-07 05:41] VITALS: BP 129/73
[2022-01-07 07:21] LABS: BASO % 0.3 % (0.0-1.0); EOS # 0.1 10^3/uL (0.0-0.5); EOS % 2.7 % (0.0-3.0); HEMATOCRIT 31.5 % (36.0-47.0); HEMOGLOBIN 10.6 g/dl (12.0-15.5); LYMPH # 0.9 10^3/uL (1.5-5.0); LYMPH % 28.5 % (24.0-44.0); MEAN CORPUSCULAR HEMOGLOBIN 30.6 pg (27.0-33.0); MEAN CORPUSCULAR HGB CONC 33.7 g/dl (32.0-36.5); MONO # 0.3 10^3/uL (0.0-0.8); MONO % 9.1 % (2.0-8.0); NEUTROPHILS # 1.7 10^3/uL (1.5-8.5); NEUTROPHILS % 58.4 % (36.0-66.0); PLATELET COUNT, AUTOMATED 176 10^3/uL (150-450); RED BLOOD COUNT 3.46 10^6/uL (4.00-5.40)
[2022-01-07 07:42] LABS: ALBUMIN 2.9 GM/DL (3.2-5.2); ALT/SGPT 46 U/L (12-78); BILIRUBIN,TOTAL 0.5 MG/DL (0.2-1.0); BLOOD UREA NITROGEN 4 MG/DL (7-18); CALCIUM LEVEL 8.9 MG/DL (8.5-10.1); CARBON DIOXIDE LEVEL 27 MEQ/L (21-32); CHLORIDE LEVEL 108 MEQ/L (98-107); CREATININE FOR GFR 0.48 MG/DL (0.55-1.30); GLUCOSE, FASTING 93 MG/DL (70-100); MAGNESIUM LEVEL 2.1 MG/DL (1.8-2.4); POTASSIUM SERUM 3.7 MEQ/L (3.5-5.1); SODIUM LEVEL 141 MEQ/L (136-145); TOTAL PROTEIN 6.3 GM/DL (6.4-8.2)
[2022-01-07] MEDS: ADVAIR HFA 230/21MCG INHALER INH SCH ×2 (08:16→20:04)
[2022-01-07] MEDS: NEOSPORIN TOP OINT 15GM TOP SCH (09:00)
[2022-01-07 10:00] VITALS: BP 93/61
[2022-01-07] MEDS: PYRIDOSTIGMINE 60MG TABLET JT SCH ×3 (10:50→20:43)
[2022-01-07] MEDS: CYANOCOBALAMIN 500 MCG TAB JT SCH (10:50)
[2022-01-07] MEDS: DOCUSATE SOD LIQ 100MG/10ML UDC JT SCH ×2 (10:50→20:43)
[2022-01-07] MEDS: PANTOPRAZOLE 40MG VIAL (C9113 PER 1) IV SCH (10:50)
[2022-01-07] MEDS: HEPARIN SOD (PORCINE) 5000UNITS/ML 1ML VIAL/SYRINGE SQ SCH ×2 (10:51→20:43)
[2022-01-07] MEDS: FAMOTIDINE 20 MG TAB JT SCH (10:51)
[2022-01-07] MEDS: ASCORBIC ACID 500 MG TAB JT SCH (10:51)
[2022-01-07 14:00] VITALS: BP 107/71
[2022-01-07] MEDS: MIRALAX *UNIT DOSE* 17GM PACKET JT SCH (20:42)
[2022-01-07] MEDS: AMITRIPTYLINE 25MG TABLET JT SCH (20:43)
[2022-01-07] MEDS: PRIMIDONE 50MG TAB JT SCH (20:43)
[2022-01-07 22:00] VITALS: BP 121/80
[2022-01-08] MEDS: D5W/0.9% SODIUM CHLORIDE 1,000 ML IV SCH ×2 (02:18→11:50)
[2022-01-08 06:00] VITALS: BP 116/80
[2022-01-08] MEDS ORDERED: LevoFLOXacin 750 MG TABLET JT SCH (06:00)
[2022-01-08 07:15] LABS: BASO % 0.6 % (0.0-1.0); EOS # 0.1 10^3/uL (0.0-0.5); EOS % 1.6 % (0.0-3.0); HEMATOCRIT 33.1 % (36.0-47.0); LYMPH # 1.1 10^3/uL (1.5-5.0); LYMPH % 36.4 % (24.0-44.0); MEAN CORPUSCULAR HEMOGLOBIN 30.4 pg (27.0-33.0); MEAN CORPUSCULAR HGB CONC 33.2 g/dl (32.0-36.5); MEAN CORPUSCULAR VOLUME 91.4 fl (80.0-96.0); MONO # 0.3 10^3/uL (0.0-0.8); MONO % 10.4 % (2.0-8.0); NEUTROPHILS # 1.5 10^3/uL (1.5-8.5); NEUTROPHILS % 49.7 % (36.0-66.0); PLATELET COUNT, AUTOMATED 212 10^3/uL (150-450); RED BLOOD COUNT 3.62 10^6/uL (4.00-5.40); WHITE BLOOD COUNT 3.1 10^3/uL (4.0-10.0)
[2022-01-08 07:32] LABS: ALBUMIN 3.2 GM/DL (3.2-5.2); ALT/SGPT 42 U/L (12-78); BILIRUBIN,TOTAL 0.3 MG/DL (0.2-1.0); BLOOD UREA NITROGEN 3 MG/DL (7-18); CALCIUM LEVEL 8.8 MG/DL (8.5-10.1); CARBON DIOXIDE LEVEL 26 MEQ/L (21-32); CHLORIDE LEVEL 105 MEQ/L (98-107); CREATININE FOR GFR 0.42 MG/DL (0.55-1.30); GLUCOSE, FASTING 80 MG/DL (70-100); MAGNESIUM LEVEL 2.1 MG/DL (1.8-2.4); POTASSIUM SERUM 3.6 MEQ/L (3.5-5.1); SODIUM LEVEL 140 MEQ/L (136-145); TOTAL PROTEIN 6.2 GM/DL (6.4-8.2)
[2022-01-08] MEDS: ADVAIR HFA 230/21MCG INHALER INH SCH (07:57)
[2022-01-08] MEDS: FAMOTIDINE 20 MG TAB JT SCH (09:56)
[2022-01-08] MEDS: MIRALAX *UNIT DOSE* 17GM PACKET JT SCH (09:56)
[2022-01-08] MEDS: PANTOPRAZOLE 40MG VIAL (C9113 PER 1) IV SCH (09:56)
[2022-01-08] MEDS: CYANOCOBALAMIN 500 MCG TAB JT SCH (09:56)
[2022-01-08] MEDS: HEPARIN SOD (PORCINE) 5000UNITS/ML 1ML VIAL/SYRINGE SQ SCH (09:56)
[2022-01-08] MEDS: DOCUSATE SOD LIQ 100MG/10ML UDC JT SCH (09:56)
[2022-01-08] MEDS: ASCORBIC ACID 500 MG TAB JT SCH (09:56)
[2022-01-08] MEDS: PYRIDOSTIGMINE 60MG TABLET JT SCH ×2 (09:57→18:37)
[2022-01-08] MEDS: NEOSPORIN TOP OINT 15GM TOP SCH (09:58)
[2022-01-08] MEDS: SIMETHICONE 40MG/0.6ML DROPS 30ML PO SCH ×2 (13:34→18:36)
[2022-01-08 14:00] VITALS: BP 107/48
[2022-01-08] MEDS ORDERED: SIME40DR31 PO (17:52)
[2022-01-08] MEDS ORDERED: PERCOCET PO (17:52)
[2022-01-08] MEDS ORDERED: PEPC1TAB5 PO (17:52)
[2022-01-08] MEDS ORDERED: MIRA1POW3 JT (17:52)
[2022-01-08] MEDS ORDERED: PANT40TA29 PO (17:52)
[2022-01-08] MEDS ORDERED: METO5TAB2 PO (17:52)
== END 2022-01-08 19:06 | disposition home health service (06) | DRG 222 ==
LOC: M ED 13:57 → M ED INP 13:58 → OBSVTOIN 12-30 13:06 → ENRESERV 12-30 16:25 → M MSPAV 12-30 18:06
PROVIDERS: ADMIT Family Medicine; ATTEND Family Medicine
PROC: BW11YZZ Fluoroscopy of Abdomen and Pelvis using Other Contrast (ICD-10-PCS; 2021-12-31)
PROC: 0DW68UZ Revision of Feeding Device in Stomach, Via Natural or Artificial Opening Endoscopic (ICD-10-PCS; 2021-12-31)
PROC: 0DH63UZ Insertion of Feeding Device into Stomach, Percutaneous Approach (ICD-10-PCS; principal; 2021-12-31 15:30)
PROC: BW11YZZ Fluoroscopy of Abdomen and Pelvis using Other Contrast (ICD-10-PCS; 2022-01-03)
PROC: 0W9D3ZZ Drainage of Pericardial Cavity, Percutaneous Approach (ICD-10-PCS; 2022-01-05)
DX: K31.84 Gastroparesis (principal); E46 Unspecified protein-calorie malnutrition; J95.812 Postprocedural air leak; J45.909 Unspecified asthma, uncomplicated; D50.9 Iron deficiency anemia, unspecified; E86.0 Dehydration; E16.2 Hypoglycemia, unspecified; Z79.899 Other long term (current) drug therapy; G25.0 Essential tremor; R53.82 Chronic fatigue, unspecified; K21.9 Gastro-esophageal reflux disease without esophagitis; Z20.822 Contact with and (suspected) exposure to COVID-19; I49.8 Other specified cardiac arrhythmias; K59.09 Other constipation; R62.7 Adult failure to thrive

== ENCOUNTER → 2021-12-29 | Outpatient (CLI) | payer BC ==
[~2021-12-29] MED LIST changes: +AMIT-255 PO; +AMIT25TA17; +MIRA1POW3 PO; +PRUC2TAB; +PRUC2TAB PO; +PYRI60TA2; +PYRI60TA2 PO
[2021-12-29 13:52] LABS: BASO % 0.4 % (0.0-1.0); EOS % 0.4 % (0.0-3.0); HEMATOCRIT 45.3 % (36.0-47.0); HEMOGLOBIN 15.5 g/dl (12.0-15.5); LYMPH # 1.5 10^3/uL (1.5-5.0); LYMPH % 28.6 % (24.0-44.0); MEAN CORPUSCULAR HGB CONC 34.2 g/dl (32.0-36.5); MEAN CORPUSCULAR VOLUME 87.8 fl (80.0-96.0); MONO # 0.3 10^3/uL (0.0-0.8); MONO % 5.8 % (2.0-8.0); NEUTROPHILS # 3.4 10^3/uL (1.5-8.5); NEUTROPHILS % 64.6 % (36.0-66.0); PLATELET COUNT, AUTOMATED 200 10^3/uL (150-450); RED BLOOD COUNT 5.16 10^6/uL (4.00-5.40); WHITE BLOOD COUNT 5.2 10^3/uL (4.0-10.0)
[2021-12-29 14:04] LABS: INR 0.99; PARTIAL THROMBOPLASTIN TIME 32.6 SECONDS (25.9-37.0); PROTHROMBIN TIME 13.5 SECONDS (12.7-14.5)
[2021-12-29 15:11] LABS: ALBUMIN 4.8 GM/DL (3.2-5.2); ALT/SGPT 48 U/L (12-78); BILIRUBIN,DIRECT 0.2 MG/DL (0.0-0.2); BILIRUBIN,TOTAL 0.7 MG/DL (0.2-1.0); BLOOD UREA NITROGEN 21 MG/DL (7-18); CREATININE FOR GFR 0.77 MG/DL (0.55-1.30); TOTAL PROTEIN 8.5 GM/DL (6.4-8.2)
[2021-12-29 15:28] LABS: PREALBUMIN 17.8 MG/DL (20.0-40.0)
== END ==
LOC: M LAB 13:26
PROVIDERS: ATTEND Nurse Practitioner Acute Care
DX: R63.4 Abnormal weight loss (principal)

== ENCOUNTER → 2022-01-11 | Outpatient (CLI) | payer BC ==
[~2022-01-11] MED LIST changes: +AMIT-255 PO; +AMIT25TA17; +METO5TAB2 PO; +MIRA1POW3 JT; +MIRA1POW3 PO; +PANT40TA29 PO; +PERCOCET PO; +PRUC2TAB; +PRUC2TAB PO; +PYRI60TA2; +PYRI60TA2 PO; +SIME40DR31 PO
== END ==
LOC: M RAD 11:30
PROVIDERS: ATTEND Internal Medicine Gastroenterology
DX: K66.8 Other specified disorders of peritoneum (principal); Z93.4 Other artificial openings of gastrointestinal tract status; K31.84 Gastroparesis

== ENCOUNTER → 2022-01-19 | Outpatient (CLI) | payer BC ==
[~2022-01-19] MED LIST changes: +E-Z-GAS II EFFERVESCENT PACKET (SODIUM BICARB./CITRIC ACID/SIMETHICONE) As Ordered ONE; +E-Z-HD 98% w/w 340GM SUSP BTL As Ordered ONE; +E-Z-PAQUE 96% w/w SUSP 176GM BTL As Ordered ONE; +GASTROGRAFIN SOLUTION 30ML (Q9963) As Ordered ONE
== END ==
LOC: M RAD 09:59
PROVIDERS: ATTEND Internal Medicine Gastroenterology
DX: K31.84 Gastroparesis (principal); R62.7 Adult failure to thrive; R11.2 Nausea with vomiting, unspecified
CPT/HCPCS: 74240; Q9963

== ENCOUNTER → 2022-02-17 | Outpatient (CLI) | payer BC ==
[~2022-02-17] MED LIST changes: -E-Z-GAS II EFFERVESCENT PACKET (SODIUM BICARB./CITRIC ACID/SIMETHICONE) As Ordered ONE; -E-Z-HD 98% w/w 340GM SUSP BTL As Ordered ONE; -E-Z-PAQUE 96% w/w SUSP 176GM BTL As Ordered ONE; -GASTROGRAFIN SOLUTION 30ML (Q9963) As Ordered ONE
== END ==
LOC: M CARPUL 07:51
PROVIDERS: ATTEND Physician Assistant
DX: J45.20 Mild intermittent asthma, uncomplicated (principal)

== ENCOUNTER → 2022-03-07 | Outpatient (CLI) | payer BC ==
[~2022-03-07] MED LIST changes: +LINZ145C PO
== END ==
LOC: M LABSMTC 11:54
PROVIDERS: ATTEND Anesthesiology
DX: Z01.812 Encounter for preprocedural laboratory examination (principal); Z20.822 Contact with and (suspected) exposure to COVID-19

== ENCOUNTER → 2022-03-23 | Outpatient (CLI) | payer BC ==
[2022-03-23 07:44] LABS: BLOOD UREA NITROGEN 15 MG/DL (7-18); CALCIUM LEVEL 9.6 MG/DL (8.5-10.1); CARBON DIOXIDE LEVEL 29 MEQ/L (21-32); CHLORIDE LEVEL 106 MEQ/L (98-107); CREATININE FOR GFR 0.75 MG/DL (0.55-1.30); GLUCOSE, FASTING 72 MG/DL (70-100); POTASSIUM SERUM 3.9 MEQ/L (3.5-5.1); SODIUM LEVEL 142 MEQ/L (136-145)
[2022-03-23 11:00] LABS: CORTISOL AM 19.2 UG/DL (4.3-22.4)
== END ==
LOC: M LAB 06:16
PROVIDERS: ATTEND Internal Medicine Gastroenterology
DX: K31.84 Gastroparesis (principal)

== ENCOUNTER 2022-04-24 18:23 | Inpatient (IN) | payer BC ==
[~2022-04-24] VITALS: Ht 172.7 cm; Wt 45.2 kg
[2022-04-24 19:45] LABS: BASO % 0.4 % (0.0-1.0); EOS % 0.2 % (0.0-3.0); HEMATOCRIT 41.6 % (36.0-47.0); HEMOGLOBIN 13.9 g/dl (12.0-15.5); LYMPH # 1.1 10^3/uL (1.5-5.0); LYMPH % 23.5 % (24.0-44.0); MEAN CORPUSCULAR HEMOGLOBIN 30.1 pg (27.0-33.0); MEAN CORPUSCULAR HGB CONC 33.4 g/dl (32.0-36.5); MONO # 0.3 10^3/uL (0.0-0.8); MONO % 5.5 % (2.0-8.0); NEUTROPHILS # 3.2 10^3/uL (1.5-8.5); PLATELET COUNT, AUTOMATED 262 10^3/uL (150-450); RED BLOOD COUNT 4.62 10^6/uL (4.00-5.40); WHITE BLOOD COUNT 4.5 10^3/uL (4.0-10.0)
[2022-04-24] MEDS ORDERED: NS 500 ML IV ONE ×2 (19:45→23:10)
[2022-04-24] MEDS ORDERED: KETOROLAC 30 MG/ML 1ML VIAL IV ONE (19:45)
[2022-04-24] MEDS ORDERED: ONDANSETRON 4MG/2ML VIAL IV ONE (19:45)
[2022-04-24 20:11] LABS: ALBUMIN 4.3 GM/DL (3.2-5.2); ALT/SGPT 38 U/L (12-78); BILIRUBIN,DIRECT 0.2 MG/DL (0.0-0.2); BILIRUBIN,TOTAL 0.9 MG/DL (0.2-1.0); BLOOD UREA NITROGEN 37 MG/DL (7-18); CALCIUM LEVEL 10.1 MG/DL (8.5-10.1); CARBON DIOXIDE LEVEL 26 MEQ/L (21-32); CHLORIDE LEVEL 95 MEQ/L (98-107); CREATININE FOR GFR 1.09 MG/DL (0.55-1.30); GLUCOSE, FASTING 69 MG/DL (70-100); LIPASE 207 U/L (73-393); POTASSIUM SERUM 3.2 MEQ/L (3.5-5.1); SODIUM LEVEL 141 MEQ/L (136-145); TOTAL PROTEIN 7.6 GM/DL (6.4-8.2)
[2022-04-24] MEDS ORDERED: KCL 10MEQ/100ML SWI (KRUN) 10 MEQ in IV 1 EA IV ONE ×2 (20:30→22:00)
[2022-04-24] MEDS ORDERED: DEXTROSE 50% 50 ML SYRINGE IV STA (20:48)
[2022-04-24] MEDS ORDERED: ISOVUE-370 76% 100ML VIAL As Ordered ONE (20:57)
[2022-04-24 21:13] LABS: VENOUS BASE EXCESS 0.1 (-2.0-2.0); VENOUS HCO3 26.8 MEQ/L (23.0-27.0); VENOUS O2 SATURATION 63.9 % (60.0-80.0); VENOUS PARTIAL PRESSURE CO2 52.2 mmHg (38.0-50.0); VENOUS PARTIAL PRESSURE O2 34.6 mmHg (30.0-50.0); VENOUS PH 7.329 UNITS (7.330-7.430); VENOUS STANDARD HCO3 23.7 MEQ/L; VENOUS TOTAL CO2 28.4 MEQ/L (24.0-28.0)
[2022-04-24] MEDS ORDERED: METOCLOPRAMIDE INJ 10MG/2ML VIAL (J2765 PER 1) IV ONE (23:10)
[2022-04-25 01:05] LABS: BLOOD UREA NITROGEN 30 MG/DL (7-18); CALCIUM LEVEL 8.3 MG/DL (8.5-10.1); CARBON DIOXIDE LEVEL 31 MEQ/L (21-32); CHLORIDE LEVEL 100 MEQ/L (98-107); GLUCOSE, FASTING 116 MG/DL (70-100); POTASSIUM SERUM 3.2 MEQ/L (3.5-5.1); SODIUM LEVEL 139 MEQ/L (136-145)
[2022-04-25] MEDS ORDERED: NS 1,000 ML IV SCH (02:15)
[2022-04-25] MEDS ORDERED: GLUCAGON INJ 1MG VIAL SC PRN (02:15)
[2022-04-25] MEDS ORDERED: GLUCOSE 4GM CHEW TABLET PO PRN (02:15)
[2022-04-25] MEDS ORDERED: DEXTROSE 50% 50 ML SYRINGE IV PRN (02:15)
[2022-04-25] MEDS ORDERED: ACETAMINOPHEN 325 MG/10.15 ML UDC GT PRN (02:15)
[2022-04-25] MEDS ORDERED: DEXTROSE 50% 50 ML SYRINGE IV STA (03:06)
[2022-04-25] MEDS ORDERED: PROM25TA12 PO (03:12)
[2022-04-25] MEDS ORDERED: FAMO1TAB11 PO (03:12)
[2022-04-25] MEDS ORDERED: SUCR1TAB56 PO (03:12)
[2022-04-25] MEDS ORDERED: PANT-23 PO (03:12)
[2022-04-25] MEDS ORDERED: HOME MED LIST COMPLETE! XX SCH (03:15)
[2022-04-25] MEDS: D5W/0.9% SODIUM CHLORIDE 1,000 ML IV SCH ×2 (04:46→15:38)
[2022-04-25] MEDS ORDERED: NS 500 ML IV ONE (05:10)
[2022-04-25] MEDS: INSULIN LISPRO (NovoLOG) PER UNIT SC SCH ×3 (06:00→18:00)
[2022-04-25] MEDS ORDERED: LEVALBUTEROL HFA 45MCG/ACT 15 GM INHALER INH PRN (06:15)
[2022-04-25] MEDS: ADVAIR HFA 230/21MCG INHALER INH SCH ×2 (08:00→20:55)
[2022-04-25] MEDS ORDERED: CYANOCOBALAMIN 500 MCG TAB PO SCH (09:00)
[2022-04-25] MEDS ORDERED: ASCORBIC ACID 500 MG TAB PO SCH (09:00)
[2022-04-25] MEDS ORDERED: PANTOPRAZOLE 40MG TAB (PROTONIX) PO SCH (09:00)
[2022-04-25] MEDS: PANTOPRAZOLE 40MG VIAL IV SCH ×2 (09:37→21:57)
[2022-04-25] MEDS: MIRALAX *UNIT DOSE* 17GM PACKET JT SCH ×2 (09:37→21:56)
[2022-04-25] MEDS: SUCRALFATE 1 GM TAB PO SCH ×2 (09:37→21:56)
[2022-04-25] MEDS: BISACODYL 10 MG SUPP PR SCH ×4 (09:38→21:57)
[2022-04-25] MEDS: METOCLOPRAMIDE INJ 10MG/2ML VIAL (J2765 PER 1) IV SCH ×4 (09:38→21:57)
[2022-04-25] MEDS ORDERED: POTASSIUM CHLORIDE 10% LIQ 20 MEQ/15 ML UDC JT ONE (10:25)
[2022-04-25] MEDS ORDERED: NS 1,000 ML IV ONE (10:25)
[2022-04-25 11:30] VITALS: BP_SYST 105; BP_SYST 125; BP_DIAS 68; BP_DIAS 84
[2022-04-25] MEDS ORDERED: LIDOCAINE 1% MDV 20ML VIAL As Ordered ONE (14:10)
[2022-04-25] MEDS: FLEET ENEMA PR SCH ×2 (15:10→21:58)
[2022-04-25 18:00] VITALS: BP 84/51
[2022-04-25] MEDS: SODIUM CHLORIDE 0.9% INJ 10 ML SYR IV SCH (18:00)
[2022-04-25] MEDS ORDERED: AMINO AC/ELECTROLYTE/DEX/CALC 2,566 ML IV SCH (18:00)
[2022-04-25 20:00] VITALS: BP 94/59
[2022-04-25] MEDS ORDERED: FAMOTIDINE 20 MG TAB PO SCH (21:00)
[2022-04-25] MEDS: AMITRIPTYLINE 25MG TABLET PO SCH (21:57)
[2022-04-25] MEDS: PRIMIDONE 50MG TAB PO SCH (22:35)
[2022-04-26] MEDS: BISACODYL 10 MG SUPP PR SCH ×6 (00:57→23:04)
[2022-04-26 02:00] VITALS: BP 86/50
[2022-04-26] MEDS: SODIUM CHLORIDE 0.9% INJ 10 ML SYR IV SCH ×2 (05:06→18:05)
[2022-04-26 05:31] VITALS: BP 88/58
[2022-04-26] MEDS: INSULIN LISPRO (NovoLOG) PER UNIT SC SCH ×4 (05:41→17:49)
[2022-04-26] MEDS: ADVAIR HFA 230/21MCG INHALER INH SCH ×2 (07:43→19:58)
[2022-04-26] MEDS: SUCRALFATE 1 GM TAB PO SCH ×2 (08:45→23:05)
[2022-04-26] MEDS: MIRALAX *UNIT DOSE* 17GM PACKET JT SCH ×2 (08:45→21:00)
[2022-04-26] MEDS: METOCLOPRAMIDE INJ 10MG/2ML VIAL (J2765 PER 1) IV SCH ×5 (08:48→21:00)
[2022-04-26] MEDS: PANTOPRAZOLE 40MG VIAL IV SCH ×2 (08:48→23:04)
[2022-04-26] MEDS: FLEET ENEMA PR SCH ×2 (08:51→23:04)
[2022-04-26 10:00] VITALS: BP 109/76
[2022-04-26] MEDS ORDERED: POTASSIUM CHLORIDE 10MEQ SR TABLET PO ONE (10:00)
[2022-04-26 14:00] VITALS: BP 96/66
[2022-04-26] MEDS ORDERED: AMINO AC/ELECTROLYTE/DEX/CALC 2,566 ML IV SCH (18:00)
[2022-04-26 22:00] VITALS: BP 97/66
[2022-04-26] MEDS: PRIMIDONE 50MG TAB PO SCH (23:04)
[2022-04-26] MEDS: AMITRIPTYLINE 25MG TABLET PO SCH (23:05)
[2022-04-27] MEDS: BISACODYL 10 MG SUPP PR SCH ×6 (01:00→21:09)
[2022-04-27 06:00] VITALS: BP 92/60
[2022-04-27] MEDS: SODIUM CHLORIDE 0.9% INJ 10 ML SYR IV SCH ×2 (06:00→16:57)
[2022-04-27] MEDS: INSULIN LISPRO (NovoLOG) PER UNIT SC SCH ×4 (06:00→18:00)
[2022-04-27] MEDS: METOCLOPRAMIDE INJ 10MG/2ML VIAL (J2765 PER 1) IV SCH ×4 (08:25→20:47)
[2022-04-27] MEDS: MIRALAX *UNIT DOSE* 17GM PACKET JT SCH ×2 (08:39→21:09)
[2022-04-27] MEDS: FLEET ENEMA PR SCH ×2 (08:39→21:09)
[2022-04-27] MEDS: SUCRALFATE 1 GM TAB PO SCH ×2 (08:39→21:09)
[2022-04-27] MEDS: PANTOPRAZOLE 40MG VIAL IV SCH ×2 (08:39→21:09)
[2022-04-27] MEDS: SODIUM CHLORIDE 0.9% INJ 10 ML SYR IV PRN (08:40)
[2022-04-27] MEDS: ADVAIR HFA 230/21MCG INHALER INH SCH ×2 (11:15→20:29)
[2022-04-27] MEDS ORDERED: ENTER DRUG NAME HERE (PATIENT'S OWN MED) PEG SCH (13:25)
[2022-04-27 14:00] VITALS: BP 91/63
[2022-04-27 15:31] LABS: BLOOD UREA NITROGEN 7 MG/DL (7-18); CALCIUM LEVEL 8.7 MG/DL (8.5-10.1); CARBON DIOXIDE LEVEL 28 MEQ/L (21-32); CHLORIDE LEVEL 107 MEQ/L (98-107); CREATININE FOR GFR 0.63 MG/DL (0.55-1.30); GLUCOSE, FASTING 96 MG/DL (70-100); POTASSIUM SERUM 3.9 MEQ/L (3.5-5.1); SODIUM LEVEL 139 MEQ/L (136-145)
[2022-04-27] MEDS ORDERED: MULTIVITAMIN -ADULT INJECTION 10 ML, ZINC/COPPER/MANGANESE/SELENIUM 1 ML in AMINO AC/EL... IV SCH (18:00)
[2022-04-27] MEDS: AMITRIPTYLINE 25MG TABLET PO SCH (21:09)
[2022-04-27] MEDS: PRIMIDONE 50MG TAB PO SCH (21:09)
[2022-04-27 22:00] VITALS: BP 91/61
[2022-04-28] MEDS: BISACODYL 10 MG SUPP PR SCH ×6 (00:42→20:54)
[2022-04-28 06:00] VITALS: BP 89/58
[2022-04-28] MEDS: INSULIN LISPRO (NovoLOG) PER UNIT SC SCH ×5 (06:00→23:53)
[2022-04-28 06:03] LABS: HEMATOCRIT 36.3 % (36.0-47.0); HEMOGLOBIN 12.1 g/dl (12.0-15.5); MEAN CORPUSCULAR HEMOGLOBIN 30.9 pg (27.0-33.0); MEAN CORPUSCULAR HGB CONC 33.3 g/dl (32.0-36.5); MEAN CORPUSCULAR VOLUME 92.6 fl (80.0-96.0); PLATELET COUNT, AUTOMATED 132 10^3/uL (150-450); RED BLOOD COUNT 3.92 10^6/uL (4.00-5.40); WHITE BLOOD COUNT 4.4 10^3/uL (4.0-10.0)
[2022-04-28] MEDS: SODIUM CHLORIDE 0.9% INJ 10 ML SYR IV SCH ×2 (06:03→18:30)
[2022-04-28 06:28] LABS: BLOOD UREA NITROGEN 8 MG/DL (7-18); CALCIUM LEVEL 8.5 MG/DL (8.5-10.1); CARBON DIOXIDE LEVEL 27 MEQ/L (21-32); CHLORIDE LEVEL 108 MEQ/L (98-107); CREATININE FOR GFR 0.52 MG/DL (0.55-1.30); GLUCOSE, FASTING 99 MG/DL (70-100); MAGNESIUM LEVEL 2.2 MG/DL (1.8-2.4); POTASSIUM SERUM 4.6 MEQ/L (3.5-5.1); SODIUM LEVEL 139 MEQ/L (136-145)
[2022-04-28] MEDS ORDERED: PROMETHAZINE 25MG/ML 1ML VIAL IV PRN (07:45)
[2022-04-28] MEDS: SUCRALFATE 1 GM TAB PO SCH ×2 (08:09→20:54)
[2022-04-28] MEDS: PANTOPRAZOLE 40MG VIAL IV SCH ×2 (08:10→20:54)
[2022-04-28] MEDS: METOCLOPRAMIDE INJ 10MG/2ML VIAL (J2765 PER 1) IV SCH ×4 (08:10→20:54)
[2022-04-28] MEDS: MIRALAX *UNIT DOSE* 17GM PACKET JT SCH ×2 (08:10→20:54)
[2022-04-28] MEDS: FLEET ENEMA PR SCH ×2 (08:10→20:53)
[2022-04-28] MEDS: ADVAIR HFA 230/21MCG INHALER INH SCH ×2 (08:36→20:06)
[2022-04-28 14:00] VITALS: BP 95/62
[2022-04-28 14:46] LABS: ALBUMIN 3.1 GM/DL (3.2-5.2); ALT/SGPT 26 U/L (12-78); BILIRUBIN,DIRECT < 0.1 MG/DL (0.0-0.2); BILIRUBIN,TOTAL 0.2 MG/DL (0.2-1.0); TOTAL PROTEIN 5.7 GM/DL (6.4-8.2)
[2022-04-28] MEDS ORDERED: AMINO AC/ELECTROLYTE/DEX/CALC 2,566 ML IV SCH (18:00)
[2022-04-28] MEDS: PRIMIDONE 50MG TAB PO SCH (20:54)
[2022-04-28] MEDS: AMITRIPTYLINE 25MG TABLET PO SCH (20:54)
[2022-04-28] MEDS: SODIUM CHLORIDE 0.9% INJ 10 ML SYR IV PRN (21:11)
[2022-04-28 22:00] VITALS: BP 101/64
[2022-04-29] MEDS: BISACODYL 10 MG SUPP PR SCH ×6 (01:53→20:55)
[2022-04-29] MEDS: SODIUM CHLORIDE 0.9% INJ 10 ML SYR IV SCH ×2 (05:03→17:54)
[2022-04-29] MEDS: INSULIN LISPRO (NovoLOG) PER UNIT SC SCH ×3 (06:00→18:00)
[2022-04-29 06:19] LABS: HEMATOCRIT 33.5 % (36.0-47.0); MEAN CORPUSCULAR HEMOGLOBIN 30.2 pg (27.0-33.0); MEAN CORPUSCULAR HGB CONC 32.8 g/dl (32.0-36.5); PLATELET COUNT, AUTOMATED 123 10^3/uL (150-450); RED BLOOD COUNT 3.64 10^6/uL (4.00-5.40); WHITE BLOOD COUNT 4.4 10^3/uL (4.0-10.0)
[2022-04-29 06:27] VITALS: BP 97/63
[2022-04-29 06:59] LABS: ALT/SGPT 31 U/L (12-78); BILIRUBIN,DIRECT < 0.1 MG/DL (0.0-0.2); BILIRUBIN,TOTAL 0.3 MG/DL (0.2-1.0); BLOOD UREA NITROGEN 13 MG/DL (7-18); CARBON DIOXIDE LEVEL 26 MEQ/L (21-32); CHLORIDE LEVEL 109 MEQ/L (98-107); CREATININE FOR GFR 0.43 MG/DL (0.55-1.30); GLUCOSE, FASTING 96 MG/DL (70-100); MAGNESIUM LEVEL 2.3 MG/DL (1.8-2.4); PHOSPHORUS LEVEL 2.4 MG/DL (2.5-4.9); POTASSIUM SERUM 4.5 MEQ/L (3.5-5.1); SODIUM LEVEL 138 MEQ/L (136-145); TOTAL PROTEIN 5.4 GM/DL (6.4-8.2)
[2022-04-29] MEDS: ADVAIR HFA 230/21MCG INHALER INH SCH ×2 (07:45→19:41)
[2022-04-29] MEDS ORDERED: MULTIVITAMINS/MINERALS THERAP 1 TAB PO SCH (09:00)
[2022-04-29] MEDS: METOCLOPRAMIDE INJ 10MG/2ML VIAL (J2765 PER 1) IV SCH ×4 (09:00→20:56)
[2022-04-29] MEDS: MIRALAX *UNIT DOSE* 17GM PACKET JT SCH ×2 (09:33→20:55)
[2022-04-29] MEDS: FLEET ENEMA PR SCH ×2 (09:33→20:55)
[2022-04-29] MEDS: SUCRALFATE 1 GM TAB PO SCH ×2 (09:33→20:55)
[2022-04-29] MEDS: PANTOPRAZOLE 40MG VIAL IV SCH ×2 (09:33→20:54)
[2022-04-29] MEDS: SODIUM CHLORIDE 0.9% INJ 10 ML SYR IV PRN ×2 (09:35→21:21)
[2022-04-29] MEDS ORDERED: SODIUM PHOSPHATE INJ 30 MMOL in D5W 500 ML IV ONE (13:00)
[2022-04-29 14:28] LABS: ALBUMIN 3.4 GM/DL (3.2-5.2); BILIRUBIN,DIRECT 0.1 MG/DL (0.0-0.2); BILIRUBIN,TOTAL 0.2 MG/DL (0.2-1.0); TOTAL PROTEIN 6.9 GM/DL (6.4-8.2)
[2022-04-29] MEDS: THIAMINE 200MG 2ML VIAL IV SCH (15:04)
[2022-04-29 15:35] VITALS: BP 101/66
[2022-04-29] MEDS ORDERED: MULTIVITAMIN -ADULT INJECTION 10 ML, ZINC/COPPER/MANGANESE/SELENIUM 1 ML in AMINO AC/EL... IV SCH (18:00)
[2022-04-29 18:02] LABS: MAGNESIUM LEVEL 2.4 MG/DL (1.8-2.4); PHOSPHORUS LEVEL 1.8 MG/DL (2.5-4.9)
[2022-04-29] MEDS: AMITRIPTYLINE 25MG TABLET PO SCH (20:54)
[2022-04-29] MEDS: PRIMIDONE 50MG TAB PO SCH (20:54)
[2022-04-29 20:58] VITALS: BP 101/66
[2022-04-30] MEDS: BISACODYL 10 MG SUPP PR SCH ×6 (01:47→20:40)
[2022-04-30 02:34] LABS: HEMATOCRIT 32.9 % (36.0-47.0); HEMOGLOBIN 10.7 g/dl (12.0-15.5); MEAN CORPUSCULAR HEMOGLOBIN 30.4 pg (27.0-33.0); MEAN CORPUSCULAR HGB CONC 32.5 g/dl (32.0-36.5); MEAN CORPUSCULAR VOLUME 93.5 fl (80.0-96.0); PLATELET COUNT, AUTOMATED 111 10^3/uL (150-450); RED BLOOD COUNT 3.52 10^6/uL (4.00-5.40); WHITE BLOOD COUNT 4.5 10^3/uL (4.0-10.0)
[2022-04-30 03:08] LABS: BILIRUBIN,DIRECT 0.1 MG/DL (0.0-0.2); BILIRUBIN,TOTAL 0.2 MG/DL (0.2-1.0); BLOOD UREA NITROGEN 10 MG/DL (7-18); CALCIUM LEVEL 8.7 MG/DL (8.5-10.1); CARBON DIOXIDE LEVEL 29 MEQ/L (21-32); CHLORIDE LEVEL 109 MEQ/L (98-107); CREATININE FOR GFR 0.48 MG/DL (0.55-1.30); GLUCOSE, FASTING 89 MG/DL (70-100); MAGNESIUM LEVEL 2.3 MG/DL (1.8-2.4); POTASSIUM SERUM 4.2 MEQ/L (3.5-5.1); SODIUM LEVEL 142 MEQ/L (136-145); TOTAL PROTEIN 5.9 GM/DL (6.4-8.2)
[2022-04-30] MEDS: SODIUM CHLORIDE 0.9% INJ 10 ML SYR IV SCH ×2 (05:59→16:58)
[2022-04-30] MEDS: INSULIN LISPRO (NovoLOG) PER UNIT SC SCH ×4 (06:00→18:00)
[2022-04-30 06:32] VITALS: BP 96/60
[2022-04-30] MEDS: ADVAIR HFA 230/21MCG INHALER INH SCH ×2 (08:03→19:27)
[2022-04-30] MEDS: MIRALAX *UNIT DOSE* 17GM PACKET JT SCH ×3 (08:52→20:41)
[2022-04-30] MEDS: SUCRALFATE 1 GM TAB PO SCH ×2 (08:52→20:40)
[2022-04-30] MEDS: PANTOPRAZOLE 40MG VIAL IV SCH ×2 (08:52→20:41)
[2022-04-30] MEDS: METOCLOPRAMIDE INJ 10MG/2ML VIAL (J2765 PER 1) IV SCH ×4 (08:53→20:39)
[2022-04-30] MEDS: THIAMINE 200MG 2ML VIAL IV SCH (08:53)
[2022-04-30] MEDS: FLEET ENEMA PR SCH ×2 (08:56→20:40)
[2022-04-30] MEDS: FLEET OIL RETENTION ENEMA PR SCH (12:51)
[2022-04-30 14:00] VITALS: BP 94/62
[2022-04-30 15:20] LABS: ALBUMIN 3.2 GM/DL (3.2-5.2); ALT/SGPT 35 U/L (12-78); BILIRUBIN,DIRECT < 0.1 MG/DL (0.0-0.2); BILIRUBIN,TOTAL 0.1 MG/DL (0.2-1.0); TOTAL PROTEIN 6.5 GM/DL (6.4-8.2)
[2022-04-30 18:31] LABS: MAGNESIUM LEVEL 2.1 MG/DL (1.8-2.4); PHOSPHORUS LEVEL 2.1 MG/DL (2.5-4.9)
[2022-04-30] MEDS: PRIMIDONE 50MG TAB PO SCH (20:40)
[2022-04-30] MEDS: AMITRIPTYLINE 25MG TABLET PO SCH (20:41)
[2022-04-30 22:00] VITALS: BP 91/52
[2022-05-01] MEDS: BISACODYL 10 MG SUPP PR SCH ×6 (01:47→21:33)
[2022-05-01 04:37] LABS: HEMATOCRIT 32.4 % (36.0-47.0); HEMOGLOBIN 10.6 g/dl (12.0-15.5); MEAN CORPUSCULAR HEMOGLOBIN 30.7 pg (27.0-33.0); MEAN CORPUSCULAR HGB CONC 32.7 g/dl (32.0-36.5); MEAN CORPUSCULAR VOLUME 93.9 fl (80.0-96.0); PLATELET COUNT, AUTOMATED 120 10^3/uL (150-450); RED BLOOD COUNT 3.45 10^6/uL (4.00-5.40); WHITE BLOOD COUNT 5.1 10^3/uL (4.0-10.0)
[2022-05-01 04:51] LABS: BLOOD UREA NITROGEN 12 MG/DL (7-18); CALCIUM LEVEL 8.4 MG/DL (8.5-10.1); CARBON DIOXIDE LEVEL 30 MEQ/L (21-32); CHLORIDE LEVEL 108 MEQ/L (98-107); CREATININE FOR GFR 0.47 MG/DL (0.55-1.30); GLUCOSE, FASTING 84 MG/DL (70-100); MAGNESIUM LEVEL 2.2 MG/DL (1.8-2.4); PHOSPHORUS LEVEL 2.9 MG/DL (2.5-4.9); POTASSIUM SERUM 4.3 MEQ/L (3.5-5.1); SODIUM LEVEL 139 MEQ/L (136-145)
[2022-05-01 04:52] LABS: BILIRUBIN,DIRECT 0.1 MG/DL (0.0-0.2); BILIRUBIN,TOTAL 0.2 MG/DL (0.2-1.0); TOTAL PROTEIN 5.7 GM/DL (6.4-8.2)
[2022-05-01] MEDS: SODIUM CHLORIDE 0.9% INJ 10 ML SYR IV SCH ×3 (05:52→21:33)
[2022-05-01 06:00] VITALS: BP 94/58
[2022-05-01] MEDS: INSULIN LISPRO (NovoLOG) PER UNIT SC SCH ×5 (06:00→23:55)
[2022-05-01] MEDS ORDERED: AMINO AC/ELECTROLYTE/DEX/CALC 2,566 ML IV SCH (06:00)
[2022-05-01] MEDS: ADVAIR HFA 230/21MCG INHALER INH SCH ×2 (07:35→20:08)
[2022-05-01] MEDS: METOCLOPRAMIDE INJ 10MG/2ML VIAL (J2765 PER 1) IV SCH ×5 (09:00→21:00)
[2022-05-01] MEDS: FLEET ENEMA PR SCH ×2 (09:51→21:35)
[2022-05-01] MEDS: SUCRALFATE 1 GM TAB PO SCH ×2 (09:52→21:33)
[2022-05-01] MEDS: PANTOPRAZOLE 40MG VIAL IV SCH ×2 (09:53→21:35)
[2022-05-01] MEDS: MIRALAX *UNIT DOSE* 17GM PACKET JT SCH ×3 (09:53→21:31)
[2022-05-01] MEDS: THIAMINE 200MG 2ML VIAL IV SCH (09:54)
[2022-05-01] MEDS: FLEET OIL RETENTION ENEMA PR SCH (12:44)
[2022-05-01 14:00] VITALS: BP 101/68
[2022-05-01 14:38] LABS: ALBUMIN 3.1 GM/DL (3.2-5.2); BILIRUBIN,DIRECT 0.2 MG/DL (0.0-0.2); BILIRUBIN,TOTAL 0.2 MG/DL (0.2-1.0); TOTAL PROTEIN 6.1 GM/DL (6.4-8.2)
[2022-05-01 18:29] LABS: MAGNESIUM LEVEL 2.3 MG/DL (1.8-2.4); PHOSPHORUS LEVEL 2.7 MG/DL (2.5-4.9)
[2022-05-01] MEDS: AMITRIPTYLINE 25MG TABLET PO SCH (21:33)
[2022-05-01] MEDS: PRIMIDONE 50MG TAB PO SCH (21:33)
[2022-05-01 22:00] VITALS: BP 99/63
[2022-05-02] MEDS: BISACODYL 10 MG SUPP PR SCH ×6 (01:00→21:28)
[2022-05-02] MEDS: SODIUM CHLORIDE 0.9% INJ 10 ML SYR IV PRN (04:54)
[2022-05-02 06:00] VITALS: BP 93/58
[2022-05-02] MEDS ORDERED: AMINO AC/ELECTROLYTE/DEX/CALC 2,566 ML IV SCH ×2 (06:00→18:00)
[2022-05-02] MEDS: INSULIN LISPRO (NovoLOG) PER UNIT SC SCH ×5 (06:00→23:34)
[2022-05-02 06:31] LABS: HEMATOCRIT 32.6 % (36.0-47.0); HEMOGLOBIN 10.7 g/dl (12.0-15.5); MEAN CORPUSCULAR HEMOGLOBIN 31.2 pg (27.0-33.0); MEAN CORPUSCULAR HGB CONC 32.8 g/dl (32.0-36.5); PLATELET COUNT, AUTOMATED 143 10^3/uL (150-450); RED BLOOD COUNT 3.43 10^6/uL (4.00-5.40); WHITE BLOOD COUNT 4.8 10^3/uL (4.0-10.0)
[2022-05-02 06:54] LABS: ALBUMIN 3.1 GM/DL (3.2-5.2); ALT/SGPT 44 U/L (12-78); BILIRUBIN,DIRECT 0.2 MG/DL (0.0-0.2); BILIRUBIN,TOTAL 0.1 MG/DL (0.2-1.0); BLOOD UREA NITROGEN 12 MG/DL (7-18); CALCIUM LEVEL 8.3 MG/DL (8.5-10.1); CARBON DIOXIDE LEVEL 29 MEQ/L (21-32); CHLORIDE LEVEL 106 MEQ/L (98-107); CREATININE FOR GFR 0.44 MG/DL (0.55-1.30); GLUCOSE, FASTING 86 MG/DL (70-100); MAGNESIUM LEVEL 2.2 MG/DL (1.8-2.4); POTASSIUM SERUM 3.9 MEQ/L (3.5-5.1); SODIUM LEVEL 138 MEQ/L (136-145); TOTAL PROTEIN 5.9 GM/DL (6.4-8.2)
[2022-05-02] MEDS: ADVAIR HFA 230/21MCG INHALER INH SCH ×2 (07:33→20:12)
[2022-05-02] MEDS: METOCLOPRAMIDE INJ 10MG/2ML VIAL (J2765 PER 1) IV SCH ×4 (09:00→21:00)
[2022-05-02] MEDS: PANTOPRAZOLE 40MG VIAL IV SCH ×2 (09:05→21:28)
[2022-05-02] MEDS: MIRALAX *UNIT DOSE* 17GM PACKET JT SCH ×3 (09:05→21:00)
[2022-05-02] MEDS: SUCRALFATE 1 GM TAB PO SCH ×2 (09:05→21:28)
[2022-05-02] MEDS: THIAMINE 200MG 2ML VIAL IV SCH (09:05)
[2022-05-02] MEDS: FLEET ENEMA PR SCH ×2 (09:09→21:00)
[2022-05-02] MEDS: FLEET OIL RETENTION ENEMA PR SCH (12:00)
[2022-05-02 14:00] VITALS: BP 94/60
[2022-05-02 15:08] LABS: ALBUMIN 3.3 GM/DL (3.2-5.2); BILIRUBIN,DIRECT 0.2 MG/DL (0.0-0.2); BILIRUBIN,TOTAL 0.2 MG/DL (0.2-1.0); TOTAL PROTEIN 6.3 GM/DL (6.4-8.2)
[2022-05-02 17:31] LABS: MAGNESIUM LEVEL 2.3 MG/DL (1.8-2.4); PHOSPHORUS LEVEL 2.8 MG/DL (2.5-4.9)
[2022-05-02] MEDS: SODIUM CHLORIDE 0.9% INJ 10 ML SYR IV SCH (18:04)
[2022-05-02] MEDS: AMITRIPTYLINE 25MG TABLET PO SCH (21:28)
[2022-05-02] MEDS: PRIMIDONE 50MG TAB PO SCH (21:28)
[2022-05-02 22:00] VITALS: BP 93/60
[2022-05-03] MEDS: BISACODYL 10 MG SUPP PR SCH ×4 (00:28→12:34)
[2022-05-03] MEDS: SODIUM CHLORIDE 0.9% INJ 10 ML SYR IV SCH (05:46)
[2022-05-03 06:00] VITALS: BP 96/59
[2022-05-03] MEDS: INSULIN LISPRO (NovoLOG) PER UNIT SC SCH ×2 (06:00→12:00)
[2022-05-03] MEDS ORDERED: AMINO AC/ELECTROLYTE/DEX/CALC 2,566 ML IV ONE ×3 (06:00)
[2022-05-03 06:30] LABS: PHOSPHORUS LEVEL 4.2 MG/DL (2.5-4.9)
[2022-05-03] MEDS: ADVAIR HFA 230/21MCG INHALER INH SCH (07:38)
[2022-05-03] MEDS ORDERED: BISA10SU PR (07:50)
[2022-05-03] MEDS ORDERED: FLEEENE12 PR (07:50)
[2022-05-03 08:06] LABS: HEMATOCRIT 32.7 % (36.0-47.0); HEMOGLOBIN 10.7 g/dl (12.0-15.5); MEAN CORPUSCULAR HGB CONC 32.7 g/dl (32.0-36.5); MEAN CORPUSCULAR VOLUME 94.8 fl (80.0-96.0); PLATELET COUNT, AUTOMATED 150 10^3/uL (150-450); RED BLOOD COUNT 3.45 10^6/uL (4.00-5.40); WHITE BLOOD COUNT 4.5 10^3/uL (4.0-10.0)
[2022-05-03 08:17] LABS: ALT/SGPT 60 U/L (12-78); BILIRUBIN,TOTAL 0.2 MG/DL (0.2-1.0); BLOOD UREA NITROGEN 13 MG/DL (7-18); CARBON DIOXIDE LEVEL 28 MEQ/L (21-32); CHLORIDE LEVEL 107 MEQ/L (98-107); CREATININE FOR GFR 0.42 MG/DL (0.55-1.30); GLUCOSE, FASTING 81 MG/DL (70-100); POTASSIUM SERUM 4.2 MEQ/L (3.5-5.1); SODIUM LEVEL 140 MEQ/L (136-145); TOTAL PROTEIN 5.8 GM/DL (6.4-8.2)
[2022-05-03] MEDS: PANTOPRAZOLE 40MG VIAL IV SCH (08:48)
[2022-05-03] MEDS: THIAMINE 200MG 2ML VIAL IV SCH (08:48)
[2022-05-03] MEDS: SUCRALFATE 1 GM TAB PO SCH (08:48)
[2022-05-03] MEDS: MIRALAX *UNIT DOSE* 17GM PACKET JT SCH (08:48)
[2022-05-03] MEDS: METOCLOPRAMIDE INJ 10MG/2ML VIAL (J2765 PER 1) IV SCH ×2 (08:49→12:35)
[2022-05-03] MEDS: FLEET ENEMA PR SCH (08:51)
[2022-05-03] MEDS: FLEET OIL RETENTION ENEMA PR SCH (12:35)
== END 2022-05-03 14:40 | disposition home health service (06) | DRG 421 ==
LOC: M ED 18:23 → M ED INP 18:24 → ENRESERV 04-25 08:32 → OBSVTOIN 04-25 11:30 → M MS5PR 04-25 11:52
PROVIDERS: ADMIT Family Medicine; ATTEND Internal Medicine
PROC: 02HV33Z Insertion of Infusion Device into Superior Vena Cava, Percutaneous Approach (ICD-10-PCS; principal; 2022-04-25 15:00)
DX: E43 Unspecified severe protein-calorie malnutrition (principal); I95.89 Other hypotension; K31.84 Gastroparesis; Q79.60 Ehlers-Danlos syndrome, unspecified; J45.909 Unspecified asthma, uncomplicated; D50.9 Iron deficiency anemia, unspecified; I49.9 Cardiac arrhythmia, unspecified; G25.0 Essential tremor; R53.83 Other fatigue; K21.9 Gastro-esophageal reflux disease without esophagitis; Z20.822 Contact with and (suspected) exposure to COVID-19; Z79.899 Other long term (current) drug therapy; K59.00 Constipation, unspecified; E86.0 Dehydration; E16.2 Hypoglycemia, unspecified; R00.0 Tachycardia, unspecified; H50.9 Unspecified strabismus; R62.7 Adult failure to thrive; Z68.1 Body mass index [BMI] 19.9 or less, adult

== ENCOUNTER → 2022-05-09 | Outpatient (REF) | payer BC ==
[~2022-05-09] MED LIST changes: +BISA10SU PR; +FAMO1TAB11 PO; +FLEEENE12 PR; +PANT-23 PO; +PROM25TA12 PO; +SUCR1TAB56 PO
[2022-05-09 16:28] LABS: HEMOGLOBIN 11.8 g/dl (12.0-15.5); MEAN CORPUSCULAR HEMOGLOBIN 31.3 pg (27.0-33.0); MEAN CORPUSCULAR HGB CONC 33.7 g/dl (32.0-36.5); MEAN CORPUSCULAR VOLUME 92.8 fl (80.0-96.0); PLATELET COUNT, AUTOMATED 237 10^3/uL (150-450); RED BLOOD COUNT 3.77 10^6/uL (4.00-5.40); WHITE BLOOD COUNT 4.6 10^3/uL (4.0-10.0)
[2022-05-09 16:49] LABS: BLOOD UREA NITROGEN 15 MG/DL (7-18); CREATININE FOR GFR 0.54 MG/DL (0.55-1.30); GLUCOSE, FASTING 80 MG/DL (70-100)
[2022-05-09 16:50] LABS: ALBUMIN 3.6 GM/DL (3.2-5.2); ALT/SGPT 76 U/L (12-78); BILIRUBIN,TOTAL 0.2 MG/DL (0.2-1.0); CALCIUM LEVEL 9.5 MG/DL (8.5-10.1); CARBON DIOXIDE LEVEL 28 MEQ/L (21-32); CHLORIDE LEVEL 106 MEQ/L (98-107); MAGNESIUM LEVEL 2.5 MG/DL (1.8-2.4); PHOSPHORUS LEVEL 3.8 MG/DL (2.5-4.9); SODIUM LEVEL 142 MEQ/L (136-145); TOTAL PROTEIN 6.6 GM/DL (6.4-8.2); TRIGLYCERIDES LEVEL 70 MG/DL (<150)
== END ==
LOC: M SHH 15:39
PROVIDERS: ATTEND Internal Medicine
DX: K59.00 Constipation, unspecified (principal); E43 Unspecified severe protein-calorie malnutrition

== ENCOUNTER → 2022-05-16 | Outpatient (REF) | payer BC ==
[2022-05-16 16:01] LABS: HEMATOCRIT 33.2 % (36.0-47.0); HEMOGLOBIN 10.9 g/dl (12.0-15.5); MEAN CORPUSCULAR HEMOGLOBIN 31.2 pg (27.0-33.0); MEAN CORPUSCULAR HGB CONC 32.8 g/dl (32.0-36.5); MEAN CORPUSCULAR VOLUME 95.1 fl (80.0-96.0); PLATELET COUNT, AUTOMATED 193 10^3/uL (150-450); RED BLOOD COUNT 3.49 10^6/uL (4.00-5.40); WHITE BLOOD COUNT 3.8 10^3/uL (4.0-10.0)
[2022-05-16 16:10] LABS: ALBUMIN 3.7 GM/DL (3.2-5.2); ALT/SGPT 43 U/L (12-78); BILIRUBIN,TOTAL 0.4 MG/DL (0.2-1.0); BLOOD UREA NITROGEN 14 MG/DL (7-18); CALCIUM LEVEL 9.4 MG/DL (8.5-10.1); CARBON DIOXIDE LEVEL 28 MEQ/L (21-32); CHLORIDE LEVEL 109 MEQ/L (98-107); CREATININE FOR GFR 0.57 MG/DL (0.55-1.30); GLUCOSE, FASTING 70 MG/DL (70-100); MAGNESIUM LEVEL 2.4 MG/DL (1.8-2.4); POTASSIUM SERUM 3.7 MEQ/L (3.5-5.1); SODIUM LEVEL 144 MEQ/L (136-145); TOTAL PROTEIN 6.5 GM/DL (6.4-8.2); TRIGLYCERIDES LEVEL 63 MG/DL (<150)
== END ==
LOC: M SHH 14:39
PROVIDERS: ATTEND Internal Medicine
DX: E43 Unspecified severe protein-calorie malnutrition (principal); K59.00 Constipation, unspecified

== ENCOUNTER → 2022-05-20 | Outpatient (CLI) | payer BC ==
[2022-05-20 15:15] LABS: VENOUS BASE EXCESS 6.3 (-2.0-2.0); VENOUS PARTIAL PRESSURE CO2 55.5 mmHg (38.0-50.0); VENOUS PARTIAL PRESSURE O2 21.6 mmHg (30.0-50.0); VENOUS PH 7.392 UNITS (7.330-7.430); VENOUS SITE NOT GIVEN; VENOUS STANDARD HCO3 28.5 MEQ/L; VENOUS TOTAL CO2 34.7 MEQ/L (24.0-28.0)
[2022-05-20 15:40] LABS: POTASSIUM SERUM 3.3 MEQ/L (3.5-5.1)
== END ==
LOC: M LAB 14:49
PROVIDERS: ATTEND Internal Medicine Gastroenterology
DX: K31.84 Gastroparesis (principal)

== ENCOUNTER 2022-05-24 22:30 | Emergency (ER) | payer BC ==
[~2022-05-24] VITALS: Ht 172.7 cm; Wt 41.0 kg
[2022-05-25 03:18] LABS: BASO % 0.5 % (0.0-1.0); EOS # 0.1 10^3/uL (0.0-0.5); EOS % 1.8 % (0.0-3.0); HEMATOCRIT 38.1 % (36.0-47.0); HEMOGLOBIN 13.1 g/dl (12.0-15.5); LYMPH # 2.1 10^3/uL (1.5-5.0); LYMPH % 37.7 % (24.0-44.0); MEAN CORPUSCULAR HEMOGLOBIN 32.9 pg (27.0-33.0); MEAN CORPUSCULAR HGB CONC 34.4 g/dl (32.0-36.5); MEAN CORPUSCULAR VOLUME 95.7 fl (80.0-96.0); MONO # 0.4 10^3/uL (0.0-0.8); MONO % 7.9 % (2.0-8.0); NEUTROPHILS # 2.8 10^3/uL (1.5-8.5); NEUTROPHILS % 51.9 % (36.0-66.0); PLATELET COUNT, AUTOMATED 102 10^3/uL (150-450); RED BLOOD COUNT 3.98 10^6/uL (4.00-5.40); WHITE BLOOD COUNT 5.5 10^3/uL (4.0-10.0)
[2022-05-25 05:09] LABS: ALBUMIN 3.9 GM/DL (3.2-5.2); ALT/SGPT 39 U/L (12-78); AMYLASE 60 U/L (25-115); BILIRUBIN,DIRECT < 0.1 MG/DL (0.0-0.2); BILIRUBIN,TOTAL 0.3 MG/DL (0.2-1.0); BLOOD UREA NITROGEN 28 MG/DL (7-18); CALCIUM LEVEL 9.2 MG/DL (8.5-10.1); CARBON DIOXIDE LEVEL 33 MEQ/L (21-32); CHLORIDE LEVEL 96 MEQ/L (98-107); CREATININE FOR GFR 0.68 MG/DL (0.55-1.30); GLUCOSE, FASTING 125 MG/DL (70-100); LIPASE 116 U/L (73-393); POTASSIUM SERUM 2.7 MEQ/L (3.5-5.1); SODIUM LEVEL 137 MEQ/L (136-145)
[2022-05-25] MEDS ORDERED: POTASSIUM CHLORIDE 10% LIQ 20 MEQ/15 ML UDC PO ONE ×2 (05:50)
[2022-05-25] MEDS ORDERED: KCL 10MEQ/100ML SWI (KRUN) 10 MEQ in IV 1 EA IV ONE ×2 (05:50→06:50)
[2022-05-25] MEDS ORDERED: NS 1,000 ML IV ONE (07:20)
[2022-05-25] MEDS ORDERED: SODIUM CHLORIDE 0.9% INJ 10 ML SYR IV PRN (10:20)
[2022-05-25 10:24] VITALS: BP 102/56
== END 2022-05-25 10:32 | disposition home or self-care (01) ==
LOC: M ED 22:30
DX: E87.6 Hypokalemia (principal); E86.0 Dehydration; Q79.60 Ehlers-Danlos syndrome, unspecified; Z95.828 Presence of other vascular implants and grafts; Z93.1 Gastrostomy status; Z79.899 Other long term (current) drug therapy
CPT/HCPCS: 80048; 80076; 82150; 83690; 85025; 93041; 96365; 96366; 99285; J1642

== ENCOUNTER → 2022-05-24 | Outpatient (REF) | payer BC ==
[2022-05-24 18:17] LABS: HEMATOCRIT 40.9 % (36.0-47.0); HEMOGLOBIN 14.2 g/dl (12.0-15.5); MEAN CORPUSCULAR HEMOGLOBIN 30.6 pg (27.0-33.0); MEAN CORPUSCULAR HGB CONC 34.7 g/dl (32.0-36.5); MEAN CORPUSCULAR VOLUME 88.1 fl (80.0-96.0); PLATELET COUNT, AUTOMATED 193 10^3/uL (150-450); RED BLOOD COUNT 4.64 10^6/uL (4.00-5.40); WHITE BLOOD COUNT 6.7 10^3/uL (4.0-10.0)
[2022-05-24 19:05] LABS: ALBUMIN 4.2 GM/DL (3.2-5.2); ALT/SGPT 42 U/L (12-78); BILIRUBIN,TOTAL 0.7 MG/DL (0.2-1.0); BLOOD UREA NITROGEN 33 MG/DL (7-18); CALCIUM LEVEL 9.5 MG/DL (8.5-10.1); CARBON DIOXIDE LEVEL 35 MEQ/L (21-32); CHLORIDE LEVEL 93 MEQ/L (98-107); CREATININE FOR GFR 0.83 MG/DL (0.55-1.30); GLUCOSE, FASTING 97 MG/DL (70-100); PHOSPHORUS LEVEL 3.6 MG/DL (2.5-4.9); POTASSIUM SERUM 2.8 MEQ/L (3.5-5.1); SODIUM LEVEL 134 MEQ/L (136-145); TOTAL PROTEIN 7.4 GM/DL (6.4-8.2); TRIGLYCERIDES LEVEL 29 MG/DL (<150)
== END ==
LOC: M SHH 17:45
PROVIDERS: ATTEND Internal Medicine
DX: E43 Unspecified severe protein-calorie malnutrition (principal)

== ENCOUNTER → 2022-05-30 | Outpatient (REF) | payer BC ==
[2022-05-30 14:20] LABS: HEMATOCRIT 33.7 % (36.0-47.0); HEMOGLOBIN 11.3 g/dl (12.0-15.5); MEAN CORPUSCULAR HEMOGLOBIN 30.1 pg (27.0-33.0); MEAN CORPUSCULAR HGB CONC 33.5 g/dl (32.0-36.5); MEAN CORPUSCULAR VOLUME 89.6 fl (80.0-96.0); PLATELET COUNT, AUTOMATED 177 10^3/uL (150-450); RED BLOOD COUNT 3.76 10^6/uL (4.00-5.40); WHITE BLOOD COUNT 4.5 10^3/uL (4.0-10.0)
[2022-05-30 18:51] LABS: ALBUMIN 3.5 GM/DL (3.2-5.2); ALT/SGPT 30 U/L (12-78); BILIRUBIN,TOTAL 0.5 MG/DL (0.2-1.0); BLOOD UREA NITROGEN 12 MG/DL (7-18); CALCIUM LEVEL 8.7 MG/DL (8.5-10.1); CARBON DIOXIDE LEVEL 32 MEQ/L (21-32); CHLORIDE LEVEL 105 MEQ/L (98-107); CREATININE FOR GFR 0.66 MG/DL (0.55-1.30); GLUCOSE, FASTING 111 MG/DL (70-100); MAGNESIUM LEVEL 2.4 MG/DL (1.8-2.4); POTASSIUM SERUM 3.2 MEQ/L (3.5-5.1); SODIUM LEVEL 141 MEQ/L (136-145); TOTAL PROTEIN 6.1 GM/DL (6.4-8.2); TRIGLYCERIDES LEVEL 74 MG/DL (<150)
== END ==
LOC: M SHH 13:46
PROVIDERS: ATTEND Internal Medicine
DX: E43 Unspecified severe protein-calorie malnutrition (principal); K59.00 Constipation, unspecified

== ENCOUNTER → 2022-06-06 | Outpatient (REF) | payer BC ==
[2022-06-06 12:23] LABS: HEMATOCRIT 34.9 % (36.0-47.0); HEMOGLOBIN 11.6 g/dl (12.0-15.5); MEAN CORPUSCULAR HEMOGLOBIN 29.7 pg (27.0-33.0); MEAN CORPUSCULAR HGB CONC 33.2 g/dl (32.0-36.5); MEAN CORPUSCULAR VOLUME 89.5 fl (80.0-96.0); PLATELET COUNT, AUTOMATED 190 10^3/uL (150-450); WHITE BLOOD COUNT 3.7 10^3/uL (4.0-10.0)
[2022-06-06 12:47] LABS: ALBUMIN 3.7 GM/DL (3.2-5.2); ALT/SGPT 28 U/L (12-78); BILIRUBIN,TOTAL 0.5 MG/DL (0.2-1.0); BLOOD UREA NITROGEN 14 MG/DL (7-18); CALCIUM LEVEL 9.1 MG/DL (8.5-10.1); CARBON DIOXIDE LEVEL 34 MEQ/L (21-32); CHLORIDE LEVEL 104 MEQ/L (98-107); CREATININE FOR GFR 0.68 MG/DL (0.55-1.30); GLUCOSE, FASTING 110 MG/DL (70-100); MAGNESIUM LEVEL 2.2 MG/DL (1.8-2.4); PHOSPHORUS LEVEL 3.9 MG/DL (2.5-4.9); POTASSIUM SERUM 3.2 MEQ/L (3.5-5.1); SODIUM LEVEL 141 MEQ/L (136-145); TOTAL PROTEIN 6.5 GM/DL (6.4-8.2); TRIGLYCERIDES LEVEL 65 MG/DL (<150)
== END ==
LOC: M SHH 11:53
PROVIDERS: ATTEND Internal Medicine
DX: K59.00 Constipation, unspecified (principal); E43 Unspecified severe protein-calorie malnutrition

== ENCOUNTER → 2022-06-13 | Outpatient (REF) | payer BC ==
[2022-06-13 14:51] LABS: HEMOGLOBIN 11.4 g/dl (12.0-15.5); MEAN CORPUSCULAR HEMOGLOBIN 29.5 pg (27.0-33.0); MEAN CORPUSCULAR HGB CONC 32.6 g/dl (32.0-36.5); MEAN CORPUSCULAR VOLUME 90.7 fl (80.0-96.0); PLATELET COUNT, AUTOMATED 182 10^3/uL (150-450); RED BLOOD COUNT 3.86 10^6/uL (4.00-5.40); WHITE BLOOD COUNT 4.6 10^3/uL (4.0-10.0)
[2022-06-13 16:49] LABS: ALT/SGPT 26 IU/L (0-32); BILIRUBIN,TOTAL 0.3 MG/DL (0.2-1.0); BLOOD UREA NITROGEN 13 MG/DL (7-18); CALCIUM LEVEL 8.9 MG/DL (8.5-10.1); CARBON DIOXIDE LEVEL 28 mmol/L (20-29); CHLORIDE LEVEL 113 MEQ/L (98-107); GLUCOSE, FASTING 74 MG/DL (70-100); PHOSPHORUS LEVEL 3.8 MG/DL (2.5-4.9); SODIUM LEVEL 146 MEQ/L (136-145); TOTAL PROTEIN 6.3 GM/DL (6.4-8.2); TRIGLYCERIDES LEVEL 50 MG/DL (<150)
[2022-06-13 16:50] LABS: ALBUMIN 3.6 GM/DL (3.2-5.2); MAGNESIUM LEVEL 2.3 MG/DL (1.8-2.4)
== END ==
LOC: M SHH 14:28
PROVIDERS: ATTEND Internal Medicine
DX: K59.00 Constipation, unspecified (principal); E43 Unspecified severe protein-calorie malnutrition

== ENCOUNTER → 2022-06-13 | Outpatient (CLI) | payer BC | LOC: M RAD 16:26 | PROVIDERS: ATTEND Nurse Practitioner Family | DX: R07.81 Pleurodynia (principal) ==

== ENCOUNTER → 2022-06-20 | Outpatient (REF) | payer BC ==
[2022-06-20 13:38] LABS: HEMATOCRIT 34.8 % (36.0-47.0); HEMOGLOBIN 11.7 g/dl (12.0-15.5); MEAN CORPUSCULAR HEMOGLOBIN 30.9 pg (27.0-33.0); MEAN CORPUSCULAR HGB CONC 33.6 g/dl (32.0-36.5); MEAN CORPUSCULAR VOLUME 91.8 fl (80.0-96.0); PLATELET COUNT, AUTOMATED 187 10^3/uL (150-450); RED BLOOD COUNT 3.79 10^6/uL (4.00-5.40); WHITE BLOOD COUNT 4.5 10^3/uL (4.0-10.0)
[2022-06-20 14:21] LABS: ALT/SGPT 26 U/L (12-78); BILIRUBIN,TOTAL 0.2 MG/DL (0.2-1.0); BLOOD UREA NITROGEN 14 MG/DL (7-18); CARBON DIOXIDE LEVEL 26 MEQ/L (21-32); CHLORIDE LEVEL 112 MEQ/L (98-107); CREATININE FOR GFR 0.64 MG/DL (0.55-1.30); GLUCOSE, FASTING 73 MG/DL (70-100); PHOSPHORUS LEVEL 3.7 MG/DL (2.5-4.9); POTASSIUM SERUM 4.1 MEQ/L (3.5-5.1); SODIUM LEVEL 144 MEQ/L (136-145)
[2022-06-20 14:22] LABS: ALBUMIN 3.6 GM/DL (3.2-5.2); MAGNESIUM LEVEL 2.1 MG/DL (1.8-2.4); TOTAL PROTEIN 6.4 GM/DL (6.4-8.2); TRIGLYCERIDES LEVEL 56 MG/DL (<150)
== END ==
LOC: M SHH 13:06
PROVIDERS: ATTEND Internal Medicine
DX: K59.00 Constipation, unspecified (principal); E43 Unspecified severe protein-calorie malnutrition

== ENCOUNTER 2022-06-27 23:55 | Emergency (ER) | payer BC ==
[~2022-06-27] VITALS: Ht 172.7 cm; Wt 40.6 kg
[2022-06-28] MEDS ORDERED: KCL 10MEQ/100ML SWI (KRUN) 10 MEQ in IV 1 EA IV ONE ×6 (00:50)
[2022-06-28 00:51] LABS: HEMATOCRIT 37.2 % (36.0-47.0); MEAN CORPUSCULAR HEMOGLOBIN 30.5 pg (27.0-33.0); MEAN CORPUSCULAR HGB CONC 34.9 g/dl (32.0-36.5); MEAN CORPUSCULAR VOLUME 87.3 fl (80.0-96.0); PLATELET COUNT, AUTOMATED 190 10^3/uL (150-450); RED BLOOD COUNT 4.26 10^6/uL (4.00-5.40); WHITE BLOOD COUNT 4.2 10^3/uL (4.0-10.0)
[2022-06-28] MEDS ORDERED: KCL 20MEQ IN 100ML SWI (KRUN) 20 MEQ in IV 1 EA IV ONE ×6 (01:05→02:35)
[2022-06-28 01:51] LABS: BLOOD UREA NITROGEN 22 MG/DL (7-18); CALCIUM LEVEL 9.4 MG/DL (8.5-10.1); CARBON DIOXIDE LEVEL 35 MEQ/L (21-32); CHLORIDE LEVEL 97 MEQ/L (98-107); GLUCOSE, FASTING 168 MG/DL (70-100); MAGNESIUM LEVEL 2.6 MG/DL (1.8-2.4); POTASSIUM SERUM 2.9 MEQ/L (3.5-5.1); SODIUM LEVEL 138 MEQ/L (136-145)
[2022-06-28 06:15] VITALS: BP 97/45
[2022-06-28] MEDS ORDERED: POTASSIUM CHLORIDE 10% LIQ 20 MEQ/15 ML UDC PO ONE (06:15)
== END 2022-06-28 07:00 | disposition home or self-care (01) ==
LOC: M ED 23:55
DX: E87.6 Hypokalemia (principal); J45.909 Unspecified asthma, uncomplicated; K21.9 Gastro-esophageal reflux disease without esophagitis; K59.00 Constipation, unspecified; R25.1 Tremor, unspecified; Z93.4 Other artificial openings of gastrointestinal tract status; Z93.1 Gastrostomy status; Z79.899 Other long term (current) drug therapy

== ENCOUNTER → 2022-06-27 | Outpatient (REF) | payer BC ==
[2022-06-27 15:03] LABS: HEMATOCRIT 39.5 % (36.0-47.0); HEMOGLOBIN 13.4 g/dl (12.0-15.5); MEAN CORPUSCULAR HGB CONC 33.9 g/dl (32.0-36.5); MEAN CORPUSCULAR VOLUME 88.6 fl (80.0-96.0); PLATELET COUNT, AUTOMATED 188 10^3/uL (150-450); RED BLOOD COUNT 4.46 10^6/uL (4.00-5.40); WHITE BLOOD COUNT 5.3 10^3/uL (4.0-10.0)
[2022-06-27 21:54] LABS: ALBUMIN 4.2 GM/DL (3.2-5.2); ALT/SGPT 25 U/L (12-78); BILIRUBIN,TOTAL 0.4 MG/DL (0.2-1.0); BLOOD UREA NITROGEN 22 MG/DL (7-18); CALCIUM LEVEL 9.5 MG/DL (8.5-10.1); CARBON DIOXIDE LEVEL 33 MEQ/L (21-32); CHLORIDE LEVEL 99 MEQ/L (98-107); CREATININE FOR GFR 0.75 MG/DL (0.55-1.30); GLUCOSE, FASTING 75 MG/DL (70-100); MAGNESIUM LEVEL 2.6 MG/DL (1.8-2.4); POTASSIUM SERUM 2.7 MEQ/L (3.5-5.1); SODIUM LEVEL 140 MEQ/L (136-145); TOTAL PROTEIN 7.3 GM/DL (6.4-8.2); TRIGLYCERIDES LEVEL 94 MG/DL (<150)
== END ==
LOC: M SHH 14:12
PROVIDERS: ATTEND Internal Medicine
DX: K59.00 Constipation, unspecified (principal); E43 Unspecified severe protein-calorie malnutrition

== ENCOUNTER → 2022-07-04 | Outpatient (REF) | payer BC ==
[~2022-07-04] MED LIST changes: +AMIT24CA7 PO; +DRON2.5C11 PO; +MIDO2.5T PO
[2022-07-04 14:09] LABS: HEMATOCRIT 36.5 % (36.0-47.0); HEMOGLOBIN 12.3 g/dl (12.0-15.5); MEAN CORPUSCULAR HGB CONC 33.7 g/dl (32.0-36.5); PLATELET COUNT, AUTOMATED 201 10^3/uL (150-450); WHITE BLOOD COUNT 4.3 10^3/uL (4.0-10.0)
[2022-07-04 15:01] LABS: BLOOD UREA NITROGEN 15 MG/DL (7-18); CARBON DIOXIDE LEVEL 33 MEQ/L (21-32); CHLORIDE LEVEL 99 MEQ/L (98-107); CREATININE FOR GFR 0.67 MG/DL (0.55-1.30); GLUCOSE, FASTING 67 MG/DL (70-100); POTASSIUM SERUM 2.9 MEQ/L (3.5-5.1); SODIUM LEVEL 138 MEQ/L (136-145)
[2022-07-04 15:02] LABS: ALBUMIN 3.7 GM/DL (3.2-5.2); ALT/SGPT 23 U/L (12-78); BILIRUBIN,TOTAL 0.4 MG/DL (0.2-1.0); CALCIUM LEVEL 9.1 MG/DL (8.5-10.1); MAGNESIUM LEVEL 2.3 MG/DL (1.8-2.4); PHOSPHORUS LEVEL 3.7 MG/DL (2.5-4.9); TOTAL PROTEIN 6.7 GM/DL (6.4-8.2); TRIGLYCERIDES LEVEL 65 MG/DL (<150)
== END ==
LOC: M SHH 13:06
PROVIDERS: ATTEND Internal Medicine
DX: K59.00 Constipation, unspecified (principal); E43 Unspecified severe protein-calorie malnutrition

== ENCOUNTER → 2022-07-11 | Outpatient (REF) | payer BC ==
[~2022-07-11] MED LIST changes: +DICY1CAP8 PO
[2022-07-11 15:10] LABS: HEMOGLOBIN 11.1 g/dl (12.0-15.5); MEAN CORPUSCULAR HEMOGLOBIN 30.5 pg (27.0-33.0); MEAN CORPUSCULAR HGB CONC 33.6 g/dl (32.0-36.5); MEAN CORPUSCULAR VOLUME 90.7 fl (80.0-96.0); PLATELET COUNT, AUTOMATED 179 10^3/uL (150-450); RED BLOOD COUNT 3.64 10^6/uL (4.00-5.40); WHITE BLOOD COUNT 4.6 10^3/uL (4.0-10.0)
[2022-07-11 15:21] LABS: ALBUMIN 3.7 GM/DL (3.2-5.2); ALT/SGPT 31 U/L (12-78); BILIRUBIN,TOTAL 0.2 MG/DL (0.2-1.0); BLOOD UREA NITROGEN 16 MG/DL (7-18); CARBON DIOXIDE LEVEL 31 MEQ/L (21-32); CHLORIDE LEVEL 107 MEQ/L (98-107); CREATININE FOR GFR 0.57 MG/DL (0.55-1.30); GLUCOSE, FASTING 66 MG/DL (70-100); MAGNESIUM LEVEL 2.2 MG/DL (1.8-2.4); PHOSPHORUS LEVEL 3.7 MG/DL (2.5-4.9); POTASSIUM SERUM 3.6 MEQ/L (3.5-5.1); SODIUM LEVEL 141 MEQ/L (136-145); TOTAL PROTEIN 6.4 GM/DL (6.4-8.2); TRIGLYCERIDES LEVEL 54 MG/DL (<150)
== END ==
LOC: M SHH 14:29
PROVIDERS: ATTEND Internal Medicine
DX: K59.00 Constipation, unspecified (principal); E43 Unspecified severe protein-calorie malnutrition

== ENCOUNTER → 2022-07-18 | Outpatient (REF) | payer BC ==
[2022-07-18 15:39] LABS: HEMATOCRIT 33.4 % (36.0-47.0); MEAN CORPUSCULAR HEMOGLOBIN 30.3 pg (27.0-33.0); MEAN CORPUSCULAR HGB CONC 32.9 g/dl (32.0-36.5); PLATELET COUNT, AUTOMATED 193 10^3/uL (150-450); RED BLOOD COUNT 3.63 10^6/uL (4.00-5.40); WHITE BLOOD COUNT 3.7 10^3/uL (4.0-10.0)
[2022-07-18 17:12] LABS: ALBUMIN 3.4 GM/DL (3.2-5.2); ALT/SGPT 31 U/L (12-78); BILIRUBIN,TOTAL 0.4 MG/DL (0.2-1.0); BLOOD UREA NITROGEN 9 MG/DL (7-18); CALCIUM LEVEL 8.8 MG/DL (8.5-10.1); CARBON DIOXIDE LEVEL 29 MEQ/L (21-32); CHLORIDE LEVEL 105 MEQ/L (98-107); CREATININE FOR GFR 0.62 MG/DL (0.55-1.30); GLUCOSE, FASTING 66 MG/DL (70-100); MAGNESIUM LEVEL 2.4 MG/DL (1.8-2.4); POTASSIUM SERUM 3.6 MEQ/L (3.5-5.1); SODIUM LEVEL 140 MEQ/L (136-145); TOTAL PROTEIN 6.4 GM/DL (6.4-8.2); TRIGLYCERIDES LEVEL 73 MG/DL (<150)
== END ==
LOC: M SHH 14:45
DX: K59.00 Constipation, unspecified (principal); E43 Unspecified severe protein-calorie malnutrition

== ENCOUNTER → 2022-07-26 | Outpatient (REF) | payer BC ==
[2022-07-26 13:29] LABS: BASO % 0.5 % (0.0-1.0); EOS # 0.1 10^3/uL (0.0-0.5); EOS % 3.2 % (0.0-3.0); HEMATOCRIT 32.1 % (36.0-47.0); HEMOGLOBIN 10.6 g/dl (12.0-15.5); LYMPH # 1.6 10^3/uL (1.5-5.0); LYMPH % 38.9 % (24.0-44.0); MEAN CORPUSCULAR HEMOGLOBIN 30.8 pg (27.0-33.0); MEAN CORPUSCULAR VOLUME 93.3 fl (80.0-96.0); MONO # 0.3 10^3/uL (0.0-0.8); MONO % 7.4 % (2.0-8.0); NEUTROPHILS % 49.5 % (36.0-66.0); PLATELET COUNT, AUTOMATED 190 10^3/uL (150-450); RED BLOOD COUNT 3.44 10^6/uL (4.00-5.40)
[2022-07-26 14:17] LABS: ALBUMIN 3.7 GM/DL (3.2-5.2); ALT/SGPT 30 U/L (12-78); BILIRUBIN,DIRECT 0.2 MG/DL (0.0-0.2); BILIRUBIN,TOTAL 0.3 MG/DL (0.2-1.0); BLOOD UREA NITROGEN 11 MG/DL (7-18); CALCIUM LEVEL 9.2 MG/DL (8.5-10.1); CARBON DIOXIDE LEVEL 29 MEQ/L (21-32); CHLORIDE LEVEL 105 MEQ/L (98-107); CREATININE FOR GFR 0.63 MG/DL (0.55-1.30); GLUCOSE, FASTING 72 MG/DL (70-100); MAGNESIUM LEVEL 2.3 MG/DL (1.8-2.4); PHOSPHORUS LEVEL 3.6 MG/DL (2.5-4.9); POTASSIUM SERUM 3.9 MEQ/L (3.5-5.1); SODIUM LEVEL 139 MEQ/L (136-145); TOTAL PROTEIN 6.4 GM/DL (6.4-8.2)
== END ==
LOC: M SHH 12:36
PROVIDERS: ATTEND Internal Medicine Gastroenterology
DX: K31.84 Gastroparesis (principal); R62.7 Adult failure to thrive; R63.4 Abnormal weight loss

== ENCOUNTER 2022-07-31 13:44 | Inpatient (IN) | payer BC ==
[~2022-07-31] VITALS: Ht 172.7 cm; Wt 45.5 kg
[2022-07-31] MEDS ORDERED: ACET-683 PO (14:04)
[2022-07-31] MEDS ORDERED: SODIUM CHLORIDE 0.9% INJ 10 ML SYR IV PRN (16:55)
[2022-07-31] MEDS ORDERED: ACETAMINOPHEN 325 MG TAB PO ONE (17:10)
[2022-07-31] MEDS ORDERED: NS 1,200 ML in IV 1 EA IV ONE (17:10)
[2022-07-31] MEDS ORDERED: VANCOMYCIN HCL 750 MG, VIAL MATE ADAPTER 1 EACH in NS 250 ML IV ONE (17:15)
[2022-07-31 17:22] LABS: BASO % 0.3 % (0.0-1.0); HEMOGLOBIN 12.6 g/dl (12.0-15.5); LYMPH # 0.3 10^3/uL (1.5-5.0); LYMPH % 6.8 % (24.0-44.0); MEAN CORPUSCULAR HEMOGLOBIN 30.1 pg (27.0-33.0); MEAN CORPUSCULAR HGB CONC 34.1 g/dl (32.0-36.5); MEAN CORPUSCULAR VOLUME 88.3 fl (80.0-96.0); MONO # 0.1 10^3/uL (0.0-0.8); MONO % 2.2 % (2.0-8.0); NEUTROPHILS # 3.3 10^3/uL (1.5-8.5); NEUTROPHILS % 90.4 % (36.0-66.0); RED BLOOD COUNT 4.19 10^6/uL (4.00-5.40); WHITE BLOOD COUNT 3.7 10^3/uL (4.0-10.0)
[2022-07-31 17:42] LABS: PLATELET COUNT, AUTOMATED 95 10^3/uL (150-450)
[2022-07-31 17:46] LABS: ALBUMIN 3.8 GM/DL (3.2-5.2); ALT/SGPT 107 U/L (12-78); BILIRUBIN,TOTAL 1.3 MG/DL (0.2-1.0); BLOOD UREA NITROGEN 21 MG/DL (7-18); CALCIUM LEVEL 8.8 MG/DL (8.5-10.1); CARBON DIOXIDE LEVEL 26 MEQ/L (21-32); CHLORIDE LEVEL 101 MEQ/L (98-107); CREATININE FOR GFR 0.91 MG/DL (0.55-1.30); GLUCOSE, FASTING 89 MG/DL (70-100); POTASSIUM SERUM 3.7 MEQ/L (3.5-5.1); SODIUM LEVEL 135 MEQ/L (136-145); TOTAL PROTEIN 6.9 GM/DL (6.4-8.2)
[2022-07-31 18:35] LABS: HCG, SERUM QUALITATIVE NEGATIVE (NEGATIVE)
[2022-07-31] MEDS ORDERED: PIPERACILLIN/TAZOBACTAM SOD 3.375 GM in D5W MINI-BAG PLUS 50 ML IV ONE (19:40)
[2022-07-31] MEDS ORDERED: GASTROGRAFIN SOLUTION 30ML PO SCH (19:55)
[2022-07-31] MEDS ORDERED: FAMOTIDINE 20 MG TAB PO SCH (21:00)
[2022-07-31] MEDS ORDERED: ISOVUE-370 76% 100ML VIAL As Ordered ONE (21:12)
[2022-07-31 23:57] LABS: LIPASE 99 U/L (73-393)
[2022-08-01] VITALS (46 sets, daily range): BP systolic 73–110; BP diastolic 34–71
[2022-08-01] MEDS ORDERED: D5W/0.9% SODIUM CHLORIDE 1,000 ML IV SCH (00:15)
[2022-08-01 00:46] LABS: AMYLASE 42 U/L (25-115)
[2022-08-01] MEDS ORDERED: LEVALBUTEROL HFA 45MCG/ACT 15 GM INHALER INH PRN (01:05)
[2022-08-01] MEDS ORDERED: DICYCLOMINE 10 MG CAP PO PRN (01:05)
[2022-08-01] MEDS ORDERED: PROMETHAZINE 25 MG TAB PO PRN (01:05)
[2022-08-01] MEDS ORDERED: HOME MED LIST COMPLETE! XX SCH (01:10)
[2022-08-01] MEDS: PIPERACILLIN/TAZOBACTAM SOD 3.375 GM in D5W MINI-BAG PLUS 50 ML IV SCH ×2 (02:25→08:26)
[2022-08-01] MEDS: SODIUM CHLORIDE 0.9% INJ 10 ML SYR IV PRN (02:28)
[2022-08-01] MEDS: AMITRIPTYLINE 25MG TABLET PO SCH ×2 (03:12→20:01)
[2022-08-01] MEDS: ACETAMINOPHEN 500 MG TAB PO PRN ×2 (03:12→23:33)
[2022-08-01] MEDS: PRIMIDONE 50MG TAB PO SCH ×2 (03:12→20:01)
[2022-08-01] MEDS ORDERED: NS 500 ML IV ONE ×3 (05:20→07:10)
[2022-08-01] MEDS: VANCOMYCIN HCL 500 MG in D5W MINI-BAG PLUS 100 ML IV SCH ×2 (05:50→17:25)
[2022-08-01] MEDS: SODIUM CHLORIDE 0.9% INJ 10 ML SYR IV SCH ×2 (06:00→18:32)
[2022-08-01] MEDS ORDERED: HYDROCORTISONE 100 MG/2 ML VIAL (J1720 PER 1) IV ONE (07:00)
[2022-08-01 07:02] LABS: HEMATOCRIT 27.6 % (36.0-47.0); MEAN CORPUSCULAR HEMOGLOBIN 30.3 pg (27.0-33.0); MEAN CORPUSCULAR HGB CONC 34.1 g/dl (32.0-36.5); WHITE BLOOD COUNT 3.5 10^3/uL (4.0-10.0)
[2022-08-01 07:06] LABS: PLATELET COUNT, AUTOMATED 69 10^3/uL (150-450)
[2022-08-01 07:07] LABS: HEMOGLOBIN 9.4 g/dl (12.0-15.5)
[2022-08-01] MEDS: ADVAIR HFA 230/21MCG INHALER INH SCH ×2 (07:36→19:34)
[2022-08-01 07:39] LABS: ALBUMIN 2.7 GM/DL (3.2-5.2); ALT/SGPT 95 U/L (12-78); BILIRUBIN,TOTAL 1.3 MG/DL (0.2-1.0); BLOOD UREA NITROGEN 16 MG/DL (7-18); CALCIUM LEVEL 7.9 MG/DL (8.5-10.1); CARBON DIOXIDE LEVEL 22 MEQ/L (21-32); CHLORIDE LEVEL 107 MEQ/L (98-107); CREATININE FOR GFR 0.57 MG/DL (0.55-1.30); GLUCOSE, FASTING 98 MG/DL (70-100); POTASSIUM SERUM 3.2 MEQ/L (3.5-5.1); SODIUM LEVEL 134 MEQ/L (136-145); TOTAL PROTEIN 5.2 GM/DL (6.4-8.2)
[2022-08-01] MEDS: MIDODRINE 2.5 MG TAB PO SCH ×2 (08:06→12:13)
[2022-08-01] MEDS ORDERED: NS 1,000 ML IV SCH (08:10)
[2022-08-01] MEDS ORDERED: POTASSIUM CHLORIDE 10% LIQ 20 MEQ/15 ML UDC PO ONE (08:30)
[2022-08-01] MEDS ORDERED: MIRALAX *UNIT DOSE* 17GM PACKET JT SCH (09:00)
[2022-08-01] MEDS ORDERED: NOREPINEPHRINE/DEXTROSE 8 MG in IV 1 EA IV SCH (09:30)
[2022-08-01] MEDS ORDERED: KCL 10MEQ IN D5/0.45NS 1000ML 1,000 ML IV SCH ×2 (09:30→16:50)
[2022-08-01] MEDS: FLEET ENEMA PR SCH ×2 (10:18→20:02)
[2022-08-01] MEDS: BISACODYL 10 MG SUPP PR SCH ×2 (10:19→20:02)
[2022-08-01] MEDS: DRONABINOL 2.5MG CAP (MARINOL) PO SCH ×3 (10:51→20:01)
[2022-08-01] MEDS: ASCORBIC ACID 500 MG TAB PO SCH (10:52)
[2022-08-01] MEDS: MIRALAX *UNIT DOSE* 17GM PACKET JT SCH ×2 (10:52→20:02)
[2022-08-01] MEDS: CYANOCOBALAMIN 500 MCG TAB PO SCH (10:52)
[2022-08-01] MEDS ORDERED: LIDOCAINE 1% MDV 20ML VIAL As Ordered ONE (11:19)
[2022-08-01 11:25] LABS: PARTIAL THROMBOPLASTIN TIME 31.2 SECONDS (25.9-37.0); PROTHROMBIN TIME 16.6 SECONDS (12.7-14.5)
[2022-08-01 11:26] LABS: FIBRINOGEN 280 MG/DL (268-480)
[2022-08-01 11:53] LABS: D-DIMER QUANT > 4000 ng/ml (<500)
[2022-08-01] MEDS: PANTOPRAZOLE 40MG VIAL IV SCH ×2 (12:13→20:01)
[2022-08-01] MEDS: MICAFUNGIN SODIUM 100 MG in D5W MINI-BAG PLUS 100 ML IV SCH (12:13)
[2022-08-01] MEDS ORDERED: MICAFUNGIN SODIUM 100 MG in D5W MINI-BAG PLUS 100 ML IV SCH (13:00)
[2022-08-01] MEDS: PIPERACILLIN/TAZOBACTAM SOD 4.5 GM in D5W MINI-BAG PLUS 50 ML IV SCH ×2 (14:04→19:28)
[2022-08-01] MEDS ORDERED: VANCOMYCIN HCL 750 MG, VIAL MATE ADAPTER 1 EACH in D5W 250 ML IV SCH (23:00)
[2022-08-02] VITALS (24 sets, daily range): BP systolic 85–106; BP diastolic 50–66
[2022-08-02] MEDS: PIPERACILLIN/TAZOBACTAM SOD 4.5 GM in D5W MINI-BAG PLUS 50 ML IV SCH ×3 (01:29→14:06)
[2022-08-02] MEDS: KCL 10MEQ IN D5/0.45NS 1000ML 1,000 ML IV SCH ×2 (04:15→19:40)
[2022-08-02] MEDS: SODIUM CHLORIDE 0.9% INJ 10 ML SYR IV SCH ×2 (05:19→17:56)
[2022-08-02 05:49] LABS: HEMATOCRIT 27.1 % (36.0-47.0); HEMOGLOBIN 9.3 g/dl (12.0-15.5); MEAN CORPUSCULAR HEMOGLOBIN 30.1 pg (27.0-33.0); MEAN CORPUSCULAR HGB CONC 34.3 g/dl (32.0-36.5); MEAN CORPUSCULAR VOLUME 87.7 fl (80.0-96.0); RED BLOOD COUNT 3.09 10^6/uL (4.00-5.40); WHITE BLOOD COUNT 3.7 10^3/uL (4.0-10.0)
[2022-08-02 05:54] LABS: PLATELET COUNT, AUTOMATED 78 10^3/uL (150-450)
[2022-08-02 06:33] LABS: BLOOD UREA NITROGEN 8 MG/DL (7-18); CALCIUM LEVEL 7.6 MG/DL (8.5-10.1); CARBON DIOXIDE LEVEL 25 MEQ/L (21-32); CHLORIDE LEVEL 105 MEQ/L (98-107); CREATININE FOR GFR 0.57 MG/DL (0.55-1.30); GLUCOSE, FASTING 134 MG/DL (70-100); POTASSIUM SERUM 2.9 MEQ/L (3.5-5.1); SODIUM LEVEL 134 MEQ/L (136-145)
[2022-08-02 06:41] LABS: IMMUNOGLOBULIN A 44.6 MG/DL (70-400); IMMUNOGLOBULIN G 431 MG/DL (681-1648)
[2022-08-02 07:39] LABS: ATYPICAL LYMPH 2 % (0-5); LYMPHOCYTES 15 % (16-44); MONOCYTES 9 % (0-5); NEUTROPHILS 46 % (28-66)
[2022-08-02 07:40] LABS: OVALOCYTES 1+
[2022-08-02 07:41] LABS: PLATELET ESTIMATE DECREASED (NORMAL)
[2022-08-02] MEDS: ADVAIR HFA 230/21MCG INHALER INH SCH ×2 (07:42→19:26)
[2022-08-02] MEDS: MIRALAX *UNIT DOSE* 17GM PACKET JT SCH ×2 (08:27→20:05)
[2022-08-02] MEDS: PANTOPRAZOLE 40MG VIAL IV SCH (08:27)
[2022-08-02] MEDS: CYANOCOBALAMIN 500 MCG TAB PO SCH (08:28)
[2022-08-02] MEDS: MIDODRINE 2.5 MG TAB PO SCH ×2 (08:28→11:56)
[2022-08-02] MEDS: DRONABINOL 2.5MG CAP (MARINOL) PO SCH ×3 (08:28→20:06)
[2022-08-02] MEDS: ASCORBIC ACID 500 MG TAB PO SCH (08:28)
[2022-08-02] MEDS: FLEET ENEMA PR SCH ×2 (08:29→20:05)
[2022-08-02] MEDS: KCL 10MEQ/100ML SWI (KRUN) 10 MEQ in IV 1 EA IV SCH ×2 (08:29→11:57)
[2022-08-02] MEDS: BISACODYL 10 MG SUPP PR SCH ×2 (08:29→20:06)
[2022-08-02] MEDS ORDERED: POTASSIUM CHLORIDE 10% LIQ 20 MEQ/15 ML UDC PO SCH (09:00)
[2022-08-02 10:14] LABS: HEPATITIS B SURFACE ANTIGEN NEGATIVE (NEGATIVE)
[2022-08-02 10:41] LABS: HEPATITIS B CORE ANTIBODY IGM NEGATIVE (NEGATIVE); HEPATITIS C VIRUS ABY INDEX < 0.0 INDEX (<0.8)
[2022-08-02 10:42] LABS: HIV 1&2 SCREEN CENTAUR NEGATIVE (NEGATIVE)
[2022-08-02] MEDS: VANCOMYCIN HCL 750 MG, VIAL MATE ADAPTER 1 EACH in D5W 250 ML IV SCH ×2 (11:01→19:40)
[2022-08-02 11:04] LABS: MAGNESIUM LEVEL 1.9 MG/DL (1.8-2.4)
[2022-08-02] MEDS: FOLIC ACID 1MG TAB PO SCH (11:56)
[2022-08-02] MEDS ORDERED: diphenhydrAMINE 50MG/ML VIAL (J1200) IV STA (13:13)
[2022-08-02] MEDS ORDERED: diphenhydrAMINE 50MG/ML VIAL (J1200) As Ordered ONE (13:15)
[2022-08-02] MEDS: MICAFUNGIN SODIUM 100 MG in D5W MINI-BAG PLUS 100 ML IV SCH (13:18)
[2022-08-02] MEDS: KCL 20MEQ IN 100ML SWI (KRUN) 20 MEQ in IV 1 EA IV SCH ×4 (16:53→17:56)
[2022-08-02] MEDS: ACETAMINOPHEN 500 MG TAB PO PRN (18:07)
[2022-08-02] MEDS: FAMOTIDINE 20 MG TAB PO SCH (20:06)
[2022-08-02] MEDS: AMITRIPTYLINE 25MG TABLET PO SCH (20:06)
[2022-08-02] MEDS: PRIMIDONE 50MG TAB PO SCH (20:06)
[2022-08-02] MEDS: diphenhydrAMINE 50MG/ML VIAL (J1200) IV SCH (21:01)
[2022-08-03] VITALS (14 sets, daily range): BP systolic 83–101; BP diastolic 54–65
[2022-08-03] MEDS: VANCOMYCIN HCL 750 MG, VIAL MATE ADAPTER 1 EACH in D5W 250 ML IV SCH (02:36)
[2022-08-03 04:45] LABS: BASO % 0.2 % (0.0-1.0); EOS % 0.4 % (0.0-3.0); HEMATOCRIT 30.1 % (36.0-47.0); LYMPH # 1.1 10^3/uL (1.5-5.0); LYMPH % 22.7 % (24.0-44.0); MEAN CORPUSCULAR HEMOGLOBIN 29.3 pg (27.0-33.0); MEAN CORPUSCULAR HGB CONC 33.2 g/dl (32.0-36.5); MEAN CORPUSCULAR VOLUME 88.3 fl (80.0-96.0); MONO # 0.5 10^3/uL (0.0-0.8); MONO % 10.7 % (2.0-8.0); NEUTROPHILS # 3.1 10^3/uL (1.5-8.5); NEUTROPHILS % 65.4 % (36.0-66.0); RED BLOOD COUNT 3.41 10^6/uL (4.00-5.40); WHITE BLOOD COUNT 4.8 10^3/uL (4.0-10.0)
[2022-08-03 04:46] LABS: PLATELET COUNT, AUTOMATED 84 10^3/uL (150-450)
[2022-08-03 05:14] LABS: ALBUMIN 2.4 GM/DL (3.2-5.2); ALT/SGPT 72 U/L (12-78); BILIRUBIN,TOTAL 0.5 MG/DL (0.2-1.0); BLOOD UREA NITROGEN 3 MG/DL (7-18); CALCIUM LEVEL 7.9 MG/DL (8.5-10.1); CARBON DIOXIDE LEVEL 26 MEQ/L (21-32); CHLORIDE LEVEL 105 MEQ/L (98-107); CREATININE FOR GFR 0.54 MG/DL (0.55-1.30); GLUCOSE, FASTING 117 MG/DL (70-100); POTASSIUM SERUM 3.8 MEQ/L (3.5-5.1); SODIUM LEVEL 135 MEQ/L (136-145); TOTAL PROTEIN 4.8 GM/DL (6.4-8.2)
[2022-08-03] MEDS: SODIUM CHLORIDE 0.9% INJ 10 ML SYR IV SCH ×2 (05:19→17:13)
[2022-08-03] MEDS: diphenhydrAMINE 50MG/ML VIAL (J1200) IV SCH ×2 (05:19→13:25)
[2022-08-03] MEDS: ADVAIR HFA 230/21MCG INHALER INH SCH ×2 (07:33→20:38)
[2022-08-03] MEDS: MIRALAX *UNIT DOSE* 17GM PACKET JT SCH ×2 (08:42→21:00)
[2022-08-03] MEDS: BISACODYL 10 MG SUPP PR SCH ×2 (08:43→21:00)
[2022-08-03] MEDS: FLEET ENEMA PR SCH ×2 (08:43→21:00)
[2022-08-03] MEDS: CYANOCOBALAMIN 500 MCG TAB PO SCH (08:47)
[2022-08-03] MEDS: FAMOTIDINE 20 MG TAB PO SCH ×2 (08:48→21:37)
[2022-08-03] MEDS: FOLIC ACID 1MG TAB PO SCH (08:48)
[2022-08-03] MEDS: ASCORBIC ACID 500 MG TAB PO SCH (08:48)
[2022-08-03] MEDS: MIDODRINE 2.5 MG TAB PO SCH ×2 (08:48→13:25)
[2022-08-03] MEDS: DRONABINOL 2.5MG CAP (MARINOL) PO SCH ×3 (08:55→21:37)
[2022-08-03] MEDS: KCL 10MEQ IN D5/0.45NS 1000ML 1,000 ML IV SCH ×2 (08:56→17:13)
[2022-08-03] MEDS: AMPICILLIN SOD 2 GM in D5W MINI-BAG PLUS 100 ML IV SCH ×4 (10:28→21:36)
[2022-08-03] MEDS: ACETAMINOPHEN 500 MG TAB PO PRN (10:41)
[2022-08-03] MEDS: MICAFUNGIN SODIUM 100 MG in D5W MINI-BAG PLUS 100 ML IV SCH (13:25)
[2022-08-03] MEDS: PRIMIDONE 50MG TAB PO SCH (21:37)
[2022-08-03] MEDS: AMITRIPTYLINE 25MG TABLET PO SCH (21:37)
[2022-08-04 00:13] VITALS: BP 90/57
[2022-08-04] MEDS: AMPICILLIN SOD 2 GM in D5W MINI-BAG PLUS 100 ML IV SCH ×6 (02:01→21:49)
[2022-08-04 04:00] VITALS: BP 83/54
[2022-08-04 04:28] LABS: BASO % 0.4 % (0.0-1.0); EOS # 0.1 10^3/uL (0.0-0.5); EOS % 1.4 % (0.0-3.0); HEMATOCRIT 27.6 % (36.0-47.0); HEMOGLOBIN 9.6 g/dl (12.0-15.5); LYMPH # 1.4 10^3/uL (1.5-5.0); LYMPH % 29.6 % (24.0-44.0); MEAN CORPUSCULAR HEMOGLOBIN 30.7 pg (27.0-33.0); MEAN CORPUSCULAR HGB CONC 34.8 g/dl (32.0-36.5); MEAN CORPUSCULAR VOLUME 88.2 fl (80.0-96.0); MONO # 0.4 10^3/uL (0.0-0.8); MONO % 8.6 % (2.0-8.0); NEUTROPHILS # 2.9 10^3/uL (1.5-8.5); NEUTROPHILS % 59.6 % (36.0-66.0); RED BLOOD COUNT 3.13 10^6/uL (4.00-5.40); WHITE BLOOD COUNT 4.9 10^3/uL (4.0-10.0)
[2022-08-04 04:35] LABS: PLATELET COUNT, AUTOMATED 94 10^3/uL (150-450)
[2022-08-04 04:59] LABS: BLOOD UREA NITROGEN 2 MG/DL (7-18); CALCIUM LEVEL 7.9 MG/DL (8.5-10.1); CARBON DIOXIDE LEVEL 28 MEQ/L (21-32); CHLORIDE LEVEL 104 MEQ/L (98-107); CREATININE FOR GFR 0.42 MG/DL (0.55-1.30); GLUCOSE, FASTING 105 MG/DL (70-100); POTASSIUM SERUM 3.3 MEQ/L (3.5-5.1); SODIUM LEVEL 136 MEQ/L (136-145)
[2022-08-04] MEDS ORDERED: POTASSIUM CHLORIDE 10MEQ SR TABLET PO ONE ×2 (05:15→08:00)
[2022-08-04] MEDS: SODIUM CHLORIDE 0.9% INJ 10 ML SYR IV SCH ×2 (05:57→18:53)
[2022-08-04 07:47] LABS: MAGNESIUM LEVEL 1.8 MG/DL (1.8-2.4)
[2022-08-04 08:00] VITALS: BP 87/53
[2022-08-04] MEDS: FOLIC ACID 1MG TAB PO SCH (08:56)
[2022-08-04] MEDS: CYANOCOBALAMIN 500 MCG TAB PO SCH (08:58)
[2022-08-04] MEDS: FAMOTIDINE 20 MG TAB PO SCH ×2 (08:58→20:38)
[2022-08-04] MEDS: DRONABINOL 2.5MG CAP (MARINOL) PO SCH ×3 (08:58→20:38)
[2022-08-04] MEDS: ASCORBIC ACID 500 MG TAB PO SCH (08:58)
[2022-08-04] MEDS: MIRALAX *UNIT DOSE* 17GM PACKET JT SCH ×2 (08:59→20:38)
[2022-08-04] MEDS: BISACODYL 10 MG SUPP PR SCH ×2 (08:59→20:38)
[2022-08-04] MEDS: KCL 10MEQ IN D5/0.45NS 1000ML 1,000 ML IV SCH (08:59)
[2022-08-04] MEDS: FLEET ENEMA PR SCH ×2 (08:59→20:38)
[2022-08-04] MEDS: MIDODRINE 2.5 MG TAB PO SCH ×2 (09:00→12:31)
[2022-08-04] MEDS: ADVAIR HFA 230/21MCG INHALER INH SCH ×2 (09:19→20:03)
[2022-08-04 12:00] VITALS: BP 89/58
[2022-08-04] MEDS: MICAFUNGIN SODIUM 100 MG in D5W MINI-BAG PLUS 100 ML IV SCH (12:31)
[2022-08-04 16:00] VITALS: BP 96/57
[2022-08-04 20:00] VITALS: BP 86/50
[2022-08-04] MEDS: AMITRIPTYLINE 25MG TABLET PO SCH (20:38)
[2022-08-04] MEDS: PRIMIDONE 50MG TAB PO SCH (20:38)
[2022-08-05] VITALS (7 sets, daily range): BP systolic 83–93; BP diastolic 51–64
[2022-08-05] MEDS: AMPICILLIN SOD 2 GM in D5W MINI-BAG PLUS 100 ML IV SCH ×6 (01:53→21:56)
[2022-08-05 04:57] LABS: BASO % 0.4 % (0.0-1.0); EOS # 0.2 10^3/uL (0.0-0.5); EOS % 3.1 % (0.0-3.0); HEMATOCRIT 28.6 % (36.0-47.0); HEMOGLOBIN 9.7 g/dl (12.0-15.5); LYMPH # 1.7 10^3/uL (1.5-5.0); LYMPH % 30.5 % (24.0-44.0); MEAN CORPUSCULAR HEMOGLOBIN 30.2 pg (27.0-33.0); MEAN CORPUSCULAR HGB CONC 33.9 g/dl (32.0-36.5); MEAN CORPUSCULAR VOLUME 89.1 fl (80.0-96.0); MONO # 0.5 10^3/uL (0.0-0.8); MONO % 8.8 % (2.0-8.0); NEUTROPHILS # 3.1 10^3/uL (1.5-8.5); NEUTROPHILS % 56.3 % (36.0-66.0); PLATELET COUNT, AUTOMATED 143 10^3/uL (150-450); RED BLOOD COUNT 3.21 10^6/uL (4.00-5.40); WHITE BLOOD COUNT 5.5 10^3/uL (4.0-10.0)
[2022-08-05 05:40] LABS: BLOOD UREA NITROGEN 3 MG/DL (7-18); CALCIUM LEVEL 8.4 MG/DL (8.5-10.1); CARBON DIOXIDE LEVEL 29 MEQ/L (21-32); CHLORIDE LEVEL 104 MEQ/L (98-107); CREATININE FOR GFR 0.38 MG/DL (0.55-1.30); GLUCOSE, FASTING 89 MG/DL (70-100); SODIUM LEVEL 137 MEQ/L (136-145)
[2022-08-05] MEDS: SODIUM CHLORIDE 0.9% INJ 10 ML SYR IV SCH ×2 (06:10→18:00)
[2022-08-05] MEDS: ADVAIR HFA 230/21MCG INHALER INH SCH ×2 (08:50→20:40)
[2022-08-05] MEDS: MIRALAX *UNIT DOSE* 17GM PACKET JT SCH ×2 (08:52→20:14)
[2022-08-05] MEDS: HEPARIN SOD (PORCINE) 5000UNITS/ML 1ML VIAL/SYRINGE SQ SCH ×2 (08:53→20:13)
[2022-08-05] MEDS: ASCORBIC ACID 500 MG TAB PO SCH (08:54)
[2022-08-05] MEDS: DRONABINOL 2.5MG CAP (MARINOL) PO SCH ×3 (08:54→20:13)
[2022-08-05] MEDS: CYANOCOBALAMIN 500 MCG TAB PO SCH (08:54)
[2022-08-05] MEDS: FOLIC ACID 1MG TAB PO SCH (08:54)
[2022-08-05] MEDS: FAMOTIDINE 20 MG TAB PO SCH ×2 (08:55→20:14)
[2022-08-05] MEDS: BISACODYL 10 MG SUPP PR SCH ×2 (08:55→20:14)
[2022-08-05] MEDS: FLEET ENEMA PR SCH ×2 (08:55→20:14)
[2022-08-05] MEDS: MIDODRINE 2.5 MG TAB PO SCH ×2 (08:57→12:51)
[2022-08-05] MEDS: [UNRECOGNIZED DRUG - NUTRITION] XX SCH (09:00)
[2022-08-05] MEDS: KCL 10MEQ IN D5/0.45NS 1000ML 1,000 ML IV SCH (10:40)
[2022-08-05] MEDS: MICAFUNGIN SODIUM 100 MG in D5W MINI-BAG PLUS 100 ML IV SCH (12:50)
[2022-08-05 17:07] LABS: IgG SERUM (part of Subclasses) 456 mg/dL (586-1602); IgG Subclass 1 192 mg/dL (248-810); IgG Subclass 2 183 mg/dL (130-555); IgG Subclass 3 18 mg/dL (15-102); IgG Subclass 4 21 mg/dL (2-96)
[2022-08-05] MEDS: [UNRECOGNIZED DRUG - NUTRITION] IV SCH (18:33)
[2022-08-05] MEDS: PRIMIDONE 50MG TAB PO SCH (20:13)
[2022-08-05] MEDS: AMITRIPTYLINE 25MG TABLET PO SCH (20:13)
[2022-08-06] MEDS: AMPICILLIN SOD 2 GM in D5W MINI-BAG PLUS 100 ML IV SCH ×6 (01:55→23:47)
[2022-08-06 03:52] VITALS: BP 95/58
[2022-08-06] MEDS: SODIUM CHLORIDE 0.9% INJ 10 ML SYR IV SCH ×2 (06:00→18:35)
[2022-08-06 06:11] LABS: BASO % 0.3 % (0.0-1.0); EOS # 0.2 10^3/uL (0.0-0.5); EOS % 3.3 % (0.0-3.0); HEMOGLOBIN 9.5 g/dl (12.0-15.5); LYMPH # 1.6 10^3/uL (1.5-5.0); LYMPH % 27.1 % (24.0-44.0); MEAN CORPUSCULAR HEMOGLOBIN 29.9 pg (27.0-33.0); MEAN CORPUSCULAR HGB CONC 32.8 g/dl (32.0-36.5); MEAN CORPUSCULAR VOLUME 91.2 fl (80.0-96.0); MONO # 0.4 10^3/uL (0.0-0.8); MONO % 7.5 % (2.0-8.0); NEUTROPHILS # 3.5 10^3/uL (1.5-8.5); NEUTROPHILS % 60.6 % (36.0-66.0); PLATELET COUNT, AUTOMATED 219 10^3/uL (150-450); RED BLOOD COUNT 3.18 10^6/uL (4.00-5.40); WHITE BLOOD COUNT 5.8 10^3/uL (4.0-10.0)
[2022-08-06 06:36] LABS: BLOOD UREA NITROGEN 9 MG/DL (7-18); CALCIUM LEVEL 8.5 MG/DL (8.5-10.1); CARBON DIOXIDE LEVEL 30 MEQ/L (21-32); CHLORIDE LEVEL 103 MEQ/L (98-107); CREATININE FOR GFR 0.52 MG/DL (0.55-1.30); GLUCOSE, FASTING 115 MG/DL (70-100); POTASSIUM SERUM 4.4 MEQ/L (3.5-5.1); SODIUM LEVEL 135 MEQ/L (136-145)
[2022-08-06] MEDS: ADVAIR HFA 230/21MCG INHALER INH SCH ×2 (07:22→19:11)
[2022-08-06 07:47] VITALS: BP 83/50
[2022-08-06] MEDS: MIRALAX *UNIT DOSE* 17GM PACKET JT SCH ×2 (08:45→20:08)
[2022-08-06] MEDS: FLEET ENEMA PR SCH ×2 (08:46→21:00)
[2022-08-06] MEDS: HEPARIN SOD (PORCINE) 5000UNITS/ML 1ML VIAL/SYRINGE SQ SCH ×2 (08:46→20:29)
[2022-08-06] MEDS: BISACODYL 10 MG SUPP PR SCH ×2 (08:46→20:08)
[2022-08-06] MEDS: FAMOTIDINE 20 MG TAB PO SCH ×2 (08:47→20:08)
[2022-08-06] MEDS: ASCORBIC ACID 500 MG TAB PO SCH (08:47)
[2022-08-06] MEDS: MIDODRINE 2.5 MG TAB PO SCH ×2 (08:47→13:21)
[2022-08-06] MEDS: FOLIC ACID 1MG TAB PO SCH (08:47)
[2022-08-06] MEDS: CYANOCOBALAMIN 500 MCG TAB PO SCH (08:47)
[2022-08-06] MEDS: DRONABINOL 2.5MG CAP (MARINOL) PO SCH ×3 (08:47→20:30)
[2022-08-06] MEDS: SODIUM CHLORIDE 0.9% INJ 10 ML SYR IV PRN (11:32)
[2022-08-06 12:11] VITALS: BP 90/57
[2022-08-06] MEDS: MICAFUNGIN SODIUM 100 MG in D5W MINI-BAG PLUS 100 ML IV SCH (13:21)
[2022-08-06 16:56] VITALS: BP 98/67
[2022-08-06] MEDS: [UNRECOGNIZED DRUG - NUTRITION] IV SCH (17:54)
[2022-08-06] MEDS: AMITRIPTYLINE 25MG TABLET PO SCH (20:29)
[2022-08-06] MEDS: PRIMIDONE 50MG TAB PO SCH (20:30)
[2022-08-06] MEDS ORDERED: HEPARIN SOD (PORCINE) 5000UNITS/ML 1ML VIAL/SYRINGE SQ SCH (21:00)
[2022-08-07] MEDS: AMPICILLIN SOD 2 GM in D5W MINI-BAG PLUS 100 ML IV SCH ×6 (03:13→21:33)
[2022-08-07 03:46] VITALS: BP 105/55
[2022-08-07 04:39] LABS: BASO % 0.4 % (0.0-1.0); EOS # 0.2 10^3/uL (0.0-0.5); EOS % 3.4 % (0.0-3.0); HEMATOCRIT 28.1 % (36.0-47.0); HEMOGLOBIN 9.3 g/dl (12.0-15.5); LYMPH # 1.6 10^3/uL (1.5-5.0); LYMPH % 29.9 % (24.0-44.0); MEAN CORPUSCULAR HEMOGLOBIN 30.3 pg (27.0-33.0); MEAN CORPUSCULAR HGB CONC 33.1 g/dl (32.0-36.5); MEAN CORPUSCULAR VOLUME 91.5 fl (80.0-96.0); MONO # 0.5 10^3/uL (0.0-0.8); NEUTROPHILS # 2.8 10^3/uL (1.5-8.5); NEUTROPHILS % 52.3 % (36.0-66.0); PLATELET COUNT, AUTOMATED 246 10^3/uL (150-450); RED BLOOD COUNT 3.07 10^6/uL (4.00-5.40); WHITE BLOOD COUNT 5.3 10^3/uL (4.0-10.0)
[2022-08-07 05:05] LABS: BLOOD UREA NITROGEN 10 MG/DL (7-18); CALCIUM LEVEL 8.4 MG/DL (8.5-10.1); CARBON DIOXIDE LEVEL 29 MEQ/L (21-32); CHLORIDE LEVEL 101 MEQ/L (98-107); CREATININE FOR GFR 0.46 MG/DL (0.55-1.30); GLUCOSE, FASTING 132 MG/DL (70-100); POTASSIUM SERUM 4.8 MEQ/L (3.5-5.1); SODIUM LEVEL 135 MEQ/L (136-145)
[2022-08-07] MEDS: SODIUM CHLORIDE 0.9% INJ 10 ML SYR IV SCH ×2 (06:04→17:16)
[2022-08-07] MEDS: SODIUM CHLORIDE 0.9% INJ 10 ML SYR IV PRN (06:06)
[2022-08-07] MEDS: ADVAIR HFA 230/21MCG INHALER INH SCH ×2 (07:18→19:25)
[2022-08-07 08:00] VITALS: BP 84/50
[2022-08-07 08:05] VITALS: BP 82/48
[2022-08-07] MEDS: [UNRECOGNIZED DRUG - NUTRITION] XX SCH (09:00)
[2022-08-07] MEDS: FLEET ENEMA PR SCH ×2 (09:00→21:31)
[2022-08-07] MEDS: HEPARIN SOD (PORCINE) 5000UNITS/ML 1ML VIAL/SYRINGE SQ SCH ×2 (09:07→21:32)
[2022-08-07] MEDS: CYANOCOBALAMIN 500 MCG TAB PO SCH (09:08)
[2022-08-07] MEDS: MIDODRINE 2.5 MG TAB PO SCH ×2 (09:09→13:24)
[2022-08-07] MEDS: DRONABINOL 2.5MG CAP (MARINOL) PO SCH ×3 (09:09→21:33)
[2022-08-07] MEDS: ASCORBIC ACID 500 MG TAB PO SCH (09:10)
[2022-08-07] MEDS: BISACODYL 10 MG SUPP PR SCH ×2 (09:10→21:32)
[2022-08-07] MEDS: FOLIC ACID 1MG TAB PO SCH (09:10)
[2022-08-07] MEDS: FAMOTIDINE 20 MG TAB PO SCH ×2 (09:10→21:33)
[2022-08-07] MEDS: MIRALAX *UNIT DOSE* 17GM PACKET JT SCH ×2 (09:10→21:32)
[2022-08-07 10:00] VITALS: BP 84/50
[2022-08-07 11:00] VITALS: BP 90/60
[2022-08-07] MEDS: MICAFUNGIN SODIUM 100 MG in D5W MINI-BAG PLUS 100 ML IV SCH (13:24)
[2022-08-07] MEDS: [UNRECOGNIZED DRUG - NUTRITION] IV SCH (17:17)
[2022-08-07 19:32] VITALS: BP 96/54
[2022-08-07] MEDS: AMITRIPTYLINE 25MG TABLET PO SCH (21:33)
[2022-08-07] MEDS: PRIMIDONE 50MG TAB PO SCH (21:33)
[2022-08-08] MEDS: AMPICILLIN SOD 2 GM in D5W MINI-BAG PLUS 100 ML IV SCH ×7 (02:35→22:47)
[2022-08-08 04:02] LABS: HEMATOCRIT 29.7 % (36.0-47.0); HEMOGLOBIN 9.4 g/dl (12.0-15.5); MEAN CORPUSCULAR HEMOGLOBIN 29.5 pg (27.0-33.0); MEAN CORPUSCULAR HGB CONC 31.6 g/dl (32.0-36.5); MEAN CORPUSCULAR VOLUME 93.1 fl (80.0-96.0); PLATELET COUNT, AUTOMATED 329 10^3/uL (150-450); RED BLOOD COUNT 3.19 10^6/uL (4.00-5.40); WHITE BLOOD COUNT 7.3 10^3/uL (4.0-10.0)
[2022-08-08 04:33] LABS: BLOOD UREA NITROGEN 9 MG/DL (7-18); CALCIUM LEVEL 8.9 MG/DL (8.5-10.1); CARBON DIOXIDE LEVEL 28 MEQ/L (21-32); CHLORIDE LEVEL 102 MEQ/L (98-107); CREATININE FOR GFR 0.47 MG/DL (0.55-1.30); GLUCOSE, FASTING 110 MG/DL (70-100); POTASSIUM SERUM 4.6 MEQ/L (3.5-5.1); SODIUM LEVEL 135 MEQ/L (136-145)
[2022-08-08 04:49] LABS: LYMPHOCYTES 33 % (16-44); MONOCYTES 6 % (0-5); MYELOCYTES 1 % (0-0); NEUTROPHILS 58 % (28-66); PLATELET ESTIMATE NORMAL (NORMAL)
[2022-08-08] MEDS: SODIUM CHLORIDE 0.9% INJ 10 ML SYR IV SCH ×2 (06:50→18:40)
[2022-08-08 08:00] VITALS: BP 89/57
[2022-08-08] MEDS: ADVAIR HFA 230/21MCG INHALER INH SCH ×2 (08:02→19:45)
[2022-08-08] MEDS: BISACODYL 10 MG SUPP PR SCH ×2 (10:21→22:45)
[2022-08-08] MEDS: ASCORBIC ACID 500 MG TAB PO SCH (10:21)
[2022-08-08] MEDS: HEPARIN SOD (PORCINE) 5000UNITS/ML 1ML VIAL/SYRINGE SQ SCH ×2 (10:21→22:46)
[2022-08-08] MEDS: CYANOCOBALAMIN 500 MCG TAB PO SCH (10:21)
[2022-08-08] MEDS: MIDODRINE 2.5 MG TAB PO SCH ×2 (10:22→13:44)
[2022-08-08] MEDS: MIRALAX *UNIT DOSE* 17GM PACKET JT SCH ×2 (10:22→22:44)
[2022-08-08] MEDS: FAMOTIDINE 20 MG TAB PO SCH ×2 (10:22→22:45)
[2022-08-08] MEDS: DRONABINOL 2.5MG CAP (MARINOL) PO SCH ×3 (10:22→22:45)
[2022-08-08] MEDS: FOLIC ACID 1MG TAB PO SCH (10:22)
[2022-08-08] MEDS: NS 1,000 ML IV SCH (10:23)
[2022-08-08] MEDS: FLEET ENEMA PR SCH ×2 (10:30→22:46)
[2022-08-08] MEDS: MICAFUNGIN SODIUM 100 MG in D5W MINI-BAG PLUS 100 ML IV SCH (13:44)
[2022-08-08] MEDS: [UNRECOGNIZED DRUG - NUTRITION] IV SCH (18:00)
[2022-08-08 19:26] VITALS: BP 94/51
[2022-08-08] MEDS: AMITRIPTYLINE 25MG TABLET PO SCH (22:45)
[2022-08-08] MEDS: PRIMIDONE 50MG TAB PO SCH (22:46)
[2022-08-09] MEDS: AMPICILLIN SOD 2 GM in D5W MINI-BAG PLUS 100 ML IV SCH ×5 (03:00→17:11)
[2022-08-09] MEDS: SODIUM CHLORIDE 0.9% INJ 10 ML SYR IV SCH ×2 (06:24→17:10)
[2022-08-09] MEDS: NS 1,000 ML IV SCH (06:26)
[2022-08-09 07:49] VITALS: BP 88/54
[2022-08-09] MEDS: ADVAIR HFA 230/21MCG INHALER INH SCH (08:41)
[2022-08-09] MEDS: MIDODRINE 2.5 MG TAB PO SCH ×2 (09:29→13:01)
[2022-08-09] MEDS: DRONABINOL 2.5MG CAP (MARINOL) PO SCH ×2 (09:30→15:12)
[2022-08-09] MEDS: HEPARIN SOD (PORCINE) 5000UNITS/ML 1ML VIAL/SYRINGE SQ SCH (09:30)
[2022-08-09] MEDS: CYANOCOBALAMIN 500 MCG TAB PO SCH (09:31)
[2022-08-09] MEDS: ASCORBIC ACID 500 MG TAB PO SCH (09:31)
[2022-08-09] MEDS: FOLIC ACID 1MG TAB PO SCH (09:31)
[2022-08-09] MEDS: BISACODYL 10 MG SUPP PR SCH (09:31)
[2022-08-09] MEDS: FAMOTIDINE 20 MG TAB PO SCH (09:32)
[2022-08-09] MEDS: FLEET ENEMA PR SCH (09:32)
[2022-08-09] MEDS: MIRALAX *UNIT DOSE* 17GM PACKET JT SCH (09:32)
[2022-08-09] MEDS: MICAFUNGIN SODIUM 100 MG in D5W MINI-BAG PLUS 100 ML IV SCH (13:01)
== END 2022-08-09 18:00 | disposition home health service (06) | DRG 721 ==
LOC: M ED 13:44 → M ED INP 13:45 → ENRESERV 08-01 00:19 → M MS5PR 08-01 01:30 → OBSVTOIN 08-01 08:50 → M ICU 08-01 09:43 → M PCU 08-03 18:19
PROVIDERS: ADMIT Internal Medicine; ATTEND Internal Medicine
PROC: B246ZZZ Ultrasonography of Right and Left Heart (ICD-10-PCS; 2022-08-01)
PROC: 02HV33Z Insertion of Infusion Device into Superior Vena Cava, Percutaneous Approach (ICD-10-PCS; principal; 2022-08-01 11:00)
DX: T80.211A Bloodstream infection due to central venous catheter, initial encounter (principal); A41.81 Sepsis due to Enterococcus; E43 Unspecified severe protein-calorie malnutrition; B37.7 Candidal sepsis; D80.1 Nonfamilial hypogammaglobulinemia; Q79.60 Ehlers-Danlos syndrome, unspecified; K31.84 Gastroparesis; D75.1 Secondary polycythemia; Z93.1 Gastrostomy status; I49.8 Other specified cardiac arrhythmias; J45.909 Unspecified asthma, uncomplicated; R53.82 Chronic fatigue, unspecified; D50.9 Iron deficiency anemia, unspecified; K59.09 Other constipation; K21.9 Gastro-esophageal reflux disease without esophagitis; G25.0 Essential tremor; R74.01 Elevation of levels of liver transaminase levels; Z79.899 Other long term (current) drug therapy; Z88.8 Allergy status to other drugs, medicaments and biological substances; Z20.822 Contact with and (suspected) exposure to COVID-19; N39.0 Urinary tract infection, site not specified; Z68.1 Body mass index [BMI] 19.9 or less, adult; R65.21 Severe sepsis with septic shock; D61.818 Other pancytopenia

== ENCOUNTER → 2022-08-15 | Outpatient (REF) | payer BC ==
[~2022-08-15] MED LIST changes: +ACET-683 PO
[2022-08-15 13:34] LABS: BASO # 0.1 10^3/uL (0.0-0.2); BASO % 1.6 % (0.0-1.0); EOS # 0.1 10^3/uL (0.0-0.5); EOS % 3.3 % (0.0-3.0); HEMATOCRIT 29.5 % (36.0-47.0); HEMOGLOBIN 9.4 g/dl (12.0-15.5); LYMPH # 1.3 10^3/uL (1.5-5.0); LYMPH % 35.8 % (24.0-44.0); MEAN CORPUSCULAR HEMOGLOBIN 29.7 pg (27.0-33.0); MEAN CORPUSCULAR HGB CONC 31.9 g/dl (32.0-36.5); MEAN CORPUSCULAR VOLUME 93.1 fl (80.0-96.0); MONO # 0.3 10^3/uL (0.0-0.8); MONO % 6.8 % (2.0-8.0); NEUTROPHILS # 1.9 10^3/uL (1.5-8.5); NEUTROPHILS % 52.2 % (36.0-66.0); PLATELET COUNT, AUTOMATED 343 10^3/uL (150-450); RED BLOOD COUNT 3.17 10^6/uL (4.00-5.40); WHITE BLOOD COUNT 3.7 10^3/uL (4.0-10.0)
[2022-08-15 14:43] LABS: ALBUMIN 3.1 GM/DL (3.2-5.2); ALT/SGPT 35 U/L (12-78); BILIRUBIN,DIRECT 0.2 MG/DL (0.0-0.2); BILIRUBIN,TOTAL 0.3 MG/DL (0.2-1.0); BLOOD UREA NITROGEN 4 MG/DL (7-18); CALCIUM LEVEL 8.7 MG/DL (8.5-10.1); CARBON DIOXIDE LEVEL 28 MEQ/L (21-32); CHLORIDE LEVEL 109 MEQ/L (98-107); GLUCOSE, FASTING 102 MG/DL (70-100); PHOSPHORUS LEVEL 2.6 MG/DL (2.5-4.9); POTASSIUM SERUM 3.8 MEQ/L (3.5-5.1); SODIUM LEVEL 141 MEQ/L (136-145); TOTAL PROTEIN 6.6 GM/DL (6.4-8.2)
[2022-08-15 14:44] LABS: MAGNESIUM LEVEL 2.3 MG/DL (1.8-2.4)
== END ==
LOC: M SHH 13:08
PROVIDERS: ATTEND Internal Medicine Gastroenterology
DX: K31.84 Gastroparesis (principal); R62.7 Adult failure to thrive; R63.4 Abnormal weight loss

== ENCOUNTER → 2022-08-22 | Outpatient (REF) | payer BC ==
[2022-08-22 15:17] LABS: BASO % 0.8 % (0.0-1.0); EOS # 0.2 10^3/uL (0.0-0.5); EOS % 4.4 % (0.0-3.0); HEMATOCRIT 28.5 % (36.0-47.0); HEMOGLOBIN 9.1 g/dl (12.0-15.5); LYMPH # 1.8 10^3/uL (1.5-5.0); LYMPH % 45.6 % (24.0-44.0); MEAN CORPUSCULAR HEMOGLOBIN 29.9 pg (27.0-33.0); MEAN CORPUSCULAR HGB CONC 31.9 g/dl (32.0-36.5); MEAN CORPUSCULAR VOLUME 93.8 fl (80.0-96.0); MONO # 0.3 10^3/uL (0.0-0.8); MONO % 8.1 % (2.0-8.0); NEUTROPHILS # 1.6 10^3/uL (1.5-8.5); NEUTROPHILS % 40.8 % (36.0-66.0); PLATELET COUNT, AUTOMATED 258 10^3/uL (150-450); RED BLOOD COUNT 3.04 10^6/uL (4.00-5.40); WHITE BLOOD COUNT 3.8 10^3/uL (4.0-10.0)
[2022-08-22 15:56] LABS: ALBUMIN 3.3 GM/DL (3.2-5.2); ALT/SGPT 24 U/L (12-78); BILIRUBIN,DIRECT < 0.1 MG/DL (0.0-0.2); BILIRUBIN,TOTAL 0.2 MG/DL (0.2-1.0); BLOOD UREA NITROGEN 10 MG/DL (7-18); CARBON DIOXIDE LEVEL 32 MEQ/L (21-32); CHLORIDE LEVEL 107 MEQ/L (98-107); CREATININE FOR GFR 0.49 MG/DL (0.55-1.30); GLUCOSE, FASTING 72 MG/DL (70-100); MAGNESIUM LEVEL 2.3 MG/DL (1.8-2.4); PHOSPHORUS LEVEL 3.8 MG/DL (2.5-4.9); POTASSIUM SERUM 3.6 MEQ/L (3.5-5.1); SODIUM LEVEL 141 MEQ/L (136-145); TOTAL PROTEIN 6.5 GM/DL (6.4-8.2)
== END ==
LOC: M SHH 14:27
PROVIDERS: ATTEND Internal Medicine Gastroenterology
DX: K31.84 Gastroparesis (principal); R62.7 Adult failure to thrive; R63.4 Abnormal weight loss

== ENCOUNTER → 2022-08-29 | Outpatient (REF) | payer BC ==
[2022-08-29 14:16] LABS: BASO # 0.1 10^3/uL (0.0-0.2); BASO % 0.9 % (0.0-1.0); EOS # 0.3 10^3/uL (0.0-0.5); EOS % 4.8 % (0.0-3.0); HEMATOCRIT 34.8 % (36.0-47.0); HEMOGLOBIN 11.5 g/dl (12.0-15.5); LYMPH # 1.8 10^3/uL (1.5-5.0); LYMPH % 32.4 % (24.0-44.0); MEAN CORPUSCULAR HEMOGLOBIN 30.1 pg (27.0-33.0); MEAN CORPUSCULAR VOLUME 91.1 fl (80.0-96.0); MONO # 0.3 10^3/uL (0.0-0.8); MONO % 5.8 % (2.0-8.0); NEUTROPHILS # 3.2 10^3/uL (1.5-8.5); NEUTROPHILS % 55.9 % (36.0-66.0); PLATELET COUNT, AUTOMATED 258 10^3/uL (150-450); RED BLOOD COUNT 3.82 10^6/uL (4.00-5.40); WHITE BLOOD COUNT 5.7 10^3/uL (4.0-10.0)
[2022-08-29 14:58] LABS: ALT/SGPT 24 U/L (12-78); BILIRUBIN,DIRECT 0.1 MG/DL (0.0-0.2); BILIRUBIN,TOTAL 0.3 MG/DL (0.2-1.0); BLOOD UREA NITROGEN 18 MG/DL (7-18); CALCIUM LEVEL 9.7 MG/DL (8.5-10.1); CARBON DIOXIDE LEVEL 31 MEQ/L (21-32); CHLORIDE LEVEL 98 MEQ/L (98-107); CREATININE FOR GFR 0.71 MG/DL (0.55-1.30); GLUCOSE, FASTING 75 MG/DL (70-100); MAGNESIUM LEVEL 2.5 MG/DL (1.8-2.4); POTASSIUM SERUM 3.5 MEQ/L (3.5-5.1); SODIUM LEVEL 137 MEQ/L (136-145); TOTAL PROTEIN 7.8 GM/DL (6.4-8.2)
== END ==
LOC: M SHH 13:45
PROVIDERS: ATTEND Internal Medicine Gastroenterology
DX: K31.84 Gastroparesis (principal); R62.7 Adult failure to thrive; R63.4 Abnormal weight loss

== ENCOUNTER → 2022-09-05 | Outpatient (REF) | payer BC ==
[2022-09-05 14:49] LABS: BASO % 0.4 % (0.0-1.0); EOS # 0.1 10^3/uL (0.0-0.5); EOS % 1.6 % (0.0-3.0); HEMATOCRIT 35.3 % (36.0-47.0); HEMOGLOBIN 12.1 g/dl (12.0-15.5); LYMPH # 1.4 10^3/uL (1.5-5.0); LYMPH % 17.3 % (24.0-44.0); MEAN CORPUSCULAR HEMOGLOBIN 29.6 pg (27.0-33.0); MEAN CORPUSCULAR HGB CONC 34.3 g/dl (32.0-36.5); MEAN CORPUSCULAR VOLUME 86.3 fl (80.0-96.0); MONO # 0.6 10^3/uL (0.0-0.8); MONO % 7.2 % (2.0-8.0); NEUTROPHILS # 5.8 10^3/uL (1.5-8.5); NEUTROPHILS % 73.1 % (36.0-66.0); PLATELET COUNT, AUTOMATED 234 10^3/uL (150-450); RED BLOOD COUNT 4.09 10^6/uL (4.00-5.40); WHITE BLOOD COUNT 7.9 10^3/uL (4.0-10.0)
[2022-09-05 15:37] LABS: ALT/SGPT 28 U/L (12-78); BILIRUBIN,DIRECT 0.1 MG/DL (0.0-0.2); BILIRUBIN,TOTAL 0.5 MG/DL (0.2-1.0); BLOOD UREA NITROGEN 22 MG/DL (7-18); CALCIUM LEVEL 9.6 MG/DL (8.5-10.1); CARBON DIOXIDE LEVEL 36 MEQ/L (21-32); CHLORIDE LEVEL 89 MEQ/L (98-107); CREATININE FOR GFR 0.79 MG/DL (0.55-1.30); GLUCOSE, FASTING 73 MG/DL (70-100); MAGNESIUM LEVEL 2.6 MG/DL (1.8-2.4); POTASSIUM SERUM 2.4 MEQ/L (3.5-5.1); SODIUM LEVEL 135 MEQ/L (136-145); TOTAL PROTEIN 7.7 GM/DL (6.4-8.2)
== END ==
LOC: M SHH 14:32
PROVIDERS: ATTEND Internal Medicine Gastroenterology
DX: K31.84 Gastroparesis (principal); R62.7 Adult failure to thrive; R63.4 Abnormal weight loss

== ENCOUNTER 2022-09-06 14:39 | Emergency (ER) | payer BC ==
[~2022-09-06] VITALS: Ht 172.7 cm; Wt 39.5 kg
[2022-09-06 16:13] LABS: BASO % 0.4 % (0.0-1.0); EOS # 0.2 10^3/uL (0.0-0.5); EOS % 2.2 % (0.0-3.0); HEMATOCRIT 36.4 % (36.0-47.0); HEMOGLOBIN 12.7 g/dl (12.0-15.5); LYMPH # 1.6 10^3/uL (1.5-5.0); MEAN CORPUSCULAR HEMOGLOBIN 29.8 pg (27.0-33.0); MEAN CORPUSCULAR HGB CONC 34.9 g/dl (32.0-36.5); MEAN CORPUSCULAR VOLUME 85.4 fl (80.0-96.0); MONO # 0.5 10^3/uL (0.0-0.8); MONO % 7.6 % (2.0-8.0); NEUTROPHILS # 4.4 10^3/uL (1.5-8.5); NEUTROPHILS % 65.7 % (36.0-66.0); PLATELET COUNT, AUTOMATED 241 10^3/uL (150-450); RED BLOOD COUNT 4.26 10^6/uL (4.00-5.40); WHITE BLOOD COUNT 6.7 10^3/uL (4.0-10.0)
[2022-09-06 16:52] LABS: BLOOD UREA NITROGEN 20 MG/DL (7-18); CALCIUM LEVEL 9.6 MG/DL (8.5-10.1); CARBON DIOXIDE LEVEL 35 MEQ/L (21-32); CHLORIDE LEVEL 91 MEQ/L (98-107); GLUCOSE, FASTING 113 MG/DL (70-100); MAGNESIUM LEVEL 2.7 MG/DL (1.8-2.4); POTASSIUM SERUM 2.5 MEQ/L (3.5-5.1); SODIUM LEVEL 134 MEQ/L (136-145)
[2022-09-06] MEDS ORDERED: KCL 20MEQ IN 100ML SWI (KRUN) 20 MEQ in IV 1 EA IV ONE ×2 (16:55)
[2022-09-06] MEDS ORDERED: KCL 10MEQ/100ML SWI (KRUN) 10 MEQ in IV 1 EA IV ONE (19:20)
[2022-09-06 20:30] VITALS: BP 99/62
== END 2022-09-06 20:41 | disposition home or self-care (01) ==
LOC: M ED 14:39
DX: E87.6 Hypokalemia (principal); J45.909 Unspecified asthma, uncomplicated; D50.9 Iron deficiency anemia, unspecified; Z93.1 Gastrostomy status; G90.A Postural orthostatic tachycardia syndrome [POTS]; Z79.899 Other long term (current) drug therapy; Z88.8 Allergy status to other drugs, medicaments and biological substances

== ENCOUNTER → 2022-09-12 | Outpatient (REF) | payer BC ==
[2022-09-12 14:46] LABS: BASO % 0.5 % (0.0-1.0); EOS # 0.4 10^3/uL (0.0-0.5); EOS % 6.1 % (0.0-3.0); HEMOGLOBIN 9.7 g/dl (12.0-15.5); LYMPH # 1.9 10^3/uL (1.5-5.0); MEAN CORPUSCULAR HEMOGLOBIN 29.7 pg (27.0-33.0); MEAN CORPUSCULAR HGB CONC 33.4 g/dl (32.0-36.5); MEAN CORPUSCULAR VOLUME 88.7 fl (80.0-96.0); MONO # 0.6 10^3/uL (0.0-0.8); MONO % 10.2 % (2.0-8.0); NEUTROPHILS # 2.9 10^3/uL (1.5-8.5); NEUTROPHILS % 49.9 % (36.0-66.0); PLATELET COUNT, AUTOMATED 151 10^3/uL (150-450); RED BLOOD COUNT 3.27 10^6/uL (4.00-5.40); WHITE BLOOD COUNT 5.8 10^3/uL (4.0-10.0)
[2022-09-12 15:18] LABS: ALBUMIN 3.4 GM/DL (3.2-5.2); ALT/SGPT 36 U/L (12-78); BILIRUBIN,DIRECT 0.1 MG/DL (0.0-0.2); BILIRUBIN,TOTAL 0.3 MG/DL (0.2-1.0); BLOOD UREA NITROGEN 15 MG/DL (7-18); CALCIUM LEVEL 9.1 MG/DL (8.5-10.1); CARBON DIOXIDE LEVEL 32 MEQ/L (21-32); CHLORIDE LEVEL 100 MEQ/L (98-107); CREATININE FOR GFR 0.51 MG/DL (0.55-1.30); GLOMERULAR FILTRATION RATE > 60.0 (>60); GLUCOSE, FASTING 101 MG/DL (70-100); MAGNESIUM LEVEL 2.1 MG/DL (1.8-2.4); PHOSPHORUS LEVEL 2.9 MG/DL (2.5-4.9); SODIUM LEVEL 137 MEQ/L (136-145); TOTAL PROTEIN 6.5 GM/DL (6.4-8.2)
== END ==
LOC: M SHH 14:13
PROVIDERS: ATTEND Internal Medicine Gastroenterology
DX: K31.84 Gastroparesis (principal); R62.7 Adult failure to thrive; R63.4 Abnormal weight loss

== ENCOUNTER → 2022-09-19 | Outpatient (REF) | payer BC ==
[2022-09-19 13:19] LABS: BASO % 0.6 % (0.0-1.0); EOS # 0.3 10^3/uL (0.0-0.5); EOS % 6.8 % (0.0-3.0); HEMATOCRIT 28.2 % (36.0-47.0); HEMOGLOBIN 8.9 g/dl (12.0-15.5); LYMPH # 1.8 10^3/uL (1.5-5.0); LYMPH % 36.2 % (24.0-44.0); MEAN CORPUSCULAR HEMOGLOBIN 29.5 pg (27.0-33.0); MEAN CORPUSCULAR HGB CONC 31.6 g/dl (32.0-36.5); MEAN CORPUSCULAR VOLUME 93.4 fl (80.0-96.0); MONO # 0.2 10^3/uL (0.0-0.8); MONO % 4.8 % (2.0-8.0); NEUTROPHILS # 2.5 10^3/uL (1.5-8.5); NEUTROPHILS % 50.4 % (36.0-66.0); PLATELET COUNT, AUTOMATED 262 10^3/uL (150-450); RED BLOOD COUNT 3.02 10^6/uL (4.00-5.40)
[2022-09-19 13:59] LABS: ALBUMIN 2.8 GM/DL (3.2-5.2); ALT/SGPT 18 U/L (12-78); BILIRUBIN,DIRECT 0.1 MG/DL (0.0-0.2); BILIRUBIN,TOTAL 0.2 MG/DL (0.2-1.0); BLOOD UREA NITROGEN 12 MG/DL (7-18); CALCIUM LEVEL 8.6 MG/DL (8.5-10.1); CARBON DIOXIDE LEVEL 25 MEQ/L (21-32); CHLORIDE LEVEL 110 MEQ/L (98-107); CREATININE FOR GFR 0.39 MG/DL (0.55-1.30); GLOMERULAR FILTRATION RATE > 60.0 (>60); GLUCOSE, FASTING 78 MG/DL (70-100); MAGNESIUM LEVEL 2.1 MG/DL (1.8-2.4); PHOSPHORUS LEVEL 3.4 MG/DL (2.5-4.9); POTASSIUM SERUM 4.3 MEQ/L (3.5-5.1); SODIUM LEVEL 139 MEQ/L (136-145); TOTAL PROTEIN 5.7 GM/DL (6.4-8.2)
== END ==
LOC: M SHH 12:12
PROVIDERS: ATTEND Internal Medicine Gastroenterology
DX: R63.4 Abnormal weight loss (principal); R62.7 Adult failure to thrive

== ENCOUNTER → 2022-09-26 | Outpatient (REF) | payer BC ==
[2022-09-26 14:32] LABS: BASO % 0.5 % (0.0-1.0); EOS # 0.1 10^3/uL (0.0-0.5); EOS % 2.3 % (0.0-3.0); HEMOGLOBIN 9.6 g/dl (12.0-15.5); LYMPH # 1.2 10^3/uL (1.5-5.0); MEAN CORPUSCULAR HEMOGLOBIN 29.5 pg (27.0-33.0); MEAN CORPUSCULAR VOLUME 92.3 fl (80.0-96.0); MONO # 0.4 10^3/uL (0.0-0.8); MONO % 8.6 % (2.0-8.0); NEUTROPHILS # 2.8 10^3/uL (1.5-8.5); NEUTROPHILS % 62.4 % (36.0-66.0); PLATELET COUNT, AUTOMATED 193 10^3/uL (150-450); RED BLOOD COUNT 3.25 10^6/uL (4.00-5.40); WHITE BLOOD COUNT 4.4 10^3/uL (4.0-10.0)
[2022-09-26 15:32] LABS: ALBUMIN 3.3 GM/DL (3.2-5.2); ALT/SGPT 18 U/L (12-78); BILIRUBIN,DIRECT < 0.1 MG/DL (0.0-0.2); BILIRUBIN,TOTAL 0.3 MG/DL (0.2-1.0); BLOOD UREA NITROGEN 14 MG/DL (7-18); CALCIUM LEVEL 8.8 MG/DL (8.5-10.1); CARBON DIOXIDE LEVEL 26 MEQ/L (21-32); CHLORIDE LEVEL 105 MEQ/L (98-107); CREATININE FOR GFR 0.52 MG/DL (0.55-1.30); GLOMERULAR FILTRATION RATE > 60.0 (>60); GLUCOSE, FASTING 75 MG/DL (70-100); MAGNESIUM LEVEL 2.2 MG/DL (1.8-2.4); PHOSPHORUS LEVEL 3.6 MG/DL (2.5-4.9); POTASSIUM SERUM 4.6 MEQ/L (3.5-5.1); SODIUM LEVEL 137 MEQ/L (136-145); TOTAL PROTEIN 6.7 GM/DL (6.4-8.2)
== END ==
LOC: M SHH 13:39
PROVIDERS: ATTEND Internal Medicine Gastroenterology
DX: K31.84 Gastroparesis (principal); R62.7 Adult failure to thrive; R63.4 Abnormal weight loss

== ENCOUNTER → 2022-10-03 | Outpatient (REF) | payer BC ==
[2022-10-03 13:59] LABS: BASO % 0.4 % (0.0-1.0); EOS # 0.4 10^3/uL (0.0-0.5); EOS % 8.7 % (0.0-3.0); HEMATOCRIT 31.3 % (36.0-47.0); HEMOGLOBIN 9.7 g/dl (12.0-15.5); LYMPH # 1.9 10^3/uL (1.5-5.0); LYMPH % 42.2 % (24.0-44.0); MEAN CORPUSCULAR HEMOGLOBIN 28.6 pg (27.0-33.0); MEAN CORPUSCULAR VOLUME 92.3 fl (80.0-96.0); MONO # 0.3 10^3/uL (0.0-0.8); NEUTROPHILS # 1.9 10^3/uL (1.5-8.5); NEUTROPHILS % 42.3 % (36.0-66.0); PLATELET COUNT, AUTOMATED 296 10^3/uL (150-450); RED BLOOD COUNT 3.39 10^6/uL (4.00-5.40); WHITE BLOOD COUNT 4.5 10^3/uL (4.0-10.0)
[2022-10-03 14:31] LABS: ALBUMIN 3.3 GM/DL (3.2-5.2); ALT/SGPT 18 U/L (12-78); BILIRUBIN,DIRECT < 0.1 MG/DL (0.0-0.2); BILIRUBIN,TOTAL 0.2 MG/DL (0.2-1.0); BLOOD UREA NITROGEN 15 MG/DL (7-18); CARBON DIOXIDE LEVEL 30 MEQ/L (21-32); CHLORIDE LEVEL 106 MEQ/L (98-107); CREATININE FOR GFR 0.62 MG/DL (0.55-1.30); GLOMERULAR FILTRATION RATE > 60.0 (>60); GLUCOSE, FASTING 80 MG/DL (70-100); MAGNESIUM LEVEL 2.3 MG/DL (1.8-2.4); PHOSPHORUS LEVEL 3.3 MG/DL (2.5-4.9); POTASSIUM SERUM 3.5 MEQ/L (3.5-5.1); SODIUM LEVEL 142 MEQ/L (136-145); TOTAL PROTEIN 6.4 GM/DL (6.4-8.2)
== END ==
LOC: M SHH 13:11
PROVIDERS: ATTEND Internal Medicine Gastroenterology
DX: K31.84 Gastroparesis (principal); R62.7 Adult failure to thrive; R63.4 Abnormal weight loss

== ENCOUNTER → 2022-10-10 | Outpatient (REF) | payer BC ==
[2022-10-10 14:45] LABS: BASO % 0.5 % (0.0-1.0); EOS # 0.3 10^3/uL (0.0-0.5); EOS % 3.6 % (0.0-3.0); HEMOGLOBIN 9.8 g/dl (12.0-15.5); LYMPH # 1.8 10^3/uL (1.5-5.0); LYMPH % 23.4 % (24.0-44.0); MEAN CORPUSCULAR HEMOGLOBIN 29.2 pg (27.0-33.0); MEAN CORPUSCULAR HGB CONC 31.6 g/dl (32.0-36.5); MEAN CORPUSCULAR VOLUME 92.3 fl (80.0-96.0); MONO # 0.4 10^3/uL (0.0-0.8); MONO % 5.5 % (2.0-8.0); NEUTROPHILS # 5.2 10^3/uL (1.5-8.5); NEUTROPHILS % 66.7 % (36.0-66.0); PLATELET COUNT, AUTOMATED 197 10^3/uL (150-450); RED BLOOD COUNT 3.36 10^6/uL (4.00-5.40); WHITE BLOOD COUNT 7.9 10^3/uL (4.0-10.0)
[2022-10-10 15:18] LABS: ALBUMIN 3.6 G/DL (3.2-5.2); ALT/SGPT 19 U/L (7.0-40); BILIRUBIN,DIRECT < 0.1 MG/DL (<0.4); BILIRUBIN,TOTAL 0.2 MG/DL (0.3-1.2); BLOOD UREA NITROGEN 15 MG/DL (9-23); CALCIUM LEVEL 8.7 MG/DL (8.5-10.1); CARBON DIOXIDE LEVEL 25 MMOL/L (20-31); CHLORIDE LEVEL 105 MMOL/L (98-107); CREATININE FOR GFR 0.46 MG/DL (0.55-1.30); GLOMERULAR FILTRATION RATE > 60.0 (>60); GLUCOSE, FASTING 80 MG/DL (60-100); MAGNESIUM LEVEL 1.7 MG/DL (1.8-2.4); POTASSIUM SERUM 4.6 MMOL/L (3.5-5.1); SODIUM LEVEL 139 MMOL/L (136-145); TOTAL PROTEIN 6.3 G/DL (5.7-8.2)
== END ==
LOC: M SHH 14:34
PROVIDERS: ATTEND Internal Medicine Gastroenterology
DX: K31.84 Gastroparesis (principal); R62.7 Adult failure to thrive; R63.4 Abnormal weight loss

== ENCOUNTER → 2022-10-17 | Outpatient (REF) | payer BC ==
[2022-10-17 14:43] LABS: BASO % 0.7 % (0.0-1.0); EOS # 0.3 10^3/uL (0.0-0.5); EOS % 5.8 % (0.0-3.0); HEMATOCRIT 30.5 % (36.0-47.0); HEMOGLOBIN 9.6 g/dl (12.0-15.5); LYMPH # 1.7 10^3/uL (1.5-5.0); LYMPH % 38.3 % (24.0-44.0); MEAN CORPUSCULAR HEMOGLOBIN 28.9 pg (27.0-33.0); MEAN CORPUSCULAR HGB CONC 31.5 g/dl (32.0-36.5); MEAN CORPUSCULAR VOLUME 91.9 fl (80.0-96.0); MONO # 0.3 10^3/uL (0.0-0.8); MONO % 7.4 % (2.0-8.0); NEUTROPHILS # 2.1 10^3/uL (1.5-8.5); NEUTROPHILS % 47.6 % (36.0-66.0); PLATELET COUNT, AUTOMATED 199 10^3/uL (150-450); RED BLOOD COUNT 3.32 10^6/uL (4.00-5.40); WHITE BLOOD COUNT 4.3 10^3/uL (4.0-10.0)
[2022-10-17 15:06] LABS: CHLORIDE LEVEL 107 MMOL/L (98-107); POTASSIUM SERUM 4.1 MMOL/L (3.5-5.1); SODIUM LEVEL 143 MMOL/L (136-145)
[2022-10-17 15:07] LABS: ALBUMIN 3.3 G/DL (3.2-5.2); CARBON DIOXIDE LEVEL 27 MMOL/L (20-31)
[2022-10-17 15:12] LABS: BLOOD UREA NITROGEN 10 MG/DL (9-23)
[2022-10-17 15:13] LABS: ALKALINE PHOSPHATASE 56 U/L (46-116); CALCIUM LEVEL 8.6 MG/DL (8.5-10.1); GLUCOSE, FASTING 73 MG/DL (60-100)
[2022-10-17 15:14] LABS: ALT/SGPT 16 U/L (7.0-40); AST/SGOT 16 U/L (<34); BILIRUBIN,TOTAL 0.2 MG/DL (0.3-1.2); PHOSPHORUS LEVEL 3.4 MG/DL (2.5-4.9); TOTAL PROTEIN 6.2 G/DL (5.7-8.2)
[2022-10-17 15:15] LABS: BILIRUBIN,DIRECT < 0.1 MG/DL (<0.4); CREATININE FOR GFR 0.49 MG/DL (0.55-1.30); GLOMERULAR FILTRATION RATE > 60.0 (>60)
== END ==
LOC: M SHH 14:25
PROVIDERS: ATTEND Internal Medicine Gastroenterology
DX: K31.84 Gastroparesis (principal); R62.7 Adult failure to thrive; R63.4 Abnormal weight loss

== ENCOUNTER → 2022-10-24 | Outpatient (REF) | payer BC ==
[2022-10-24 15:04] LABS: BASO % 0.4 % (0.0-1.0); EOS # 0.3 10^3/uL (0.0-0.5); EOS % 4.5 % (0.0-3.0); HEMATOCRIT 34.6 % (36.0-47.0); HEMOGLOBIN 11.1 g/dl (12.0-15.5); LYMPH # 1.4 10^3/uL (1.5-5.0); LYMPH % 25.5 % (24.0-44.0); MEAN CORPUSCULAR HEMOGLOBIN 28.8 pg (27.0-33.0); MEAN CORPUSCULAR HGB CONC 32.1 g/dl (32.0-36.5); MEAN CORPUSCULAR VOLUME 89.9 fl (80.0-96.0); MONO # 0.4 10^3/uL (0.0-0.8); MONO % 7.4 % (2.0-8.0); NEUTROPHILS # 3.5 10^3/uL (1.5-8.5); PLATELET COUNT, AUTOMATED 177 10^3/uL (150-450); RED BLOOD COUNT 3.85 10^6/uL (4.00-5.40); WHITE BLOOD COUNT 5.6 10^3/uL (4.0-10.0)
[2022-10-24 17:03] LABS: ALBUMIN 3.8 G/DL (3.2-5.2); ALKALINE PHOSPHATASE 69 U/L (46-116); ALT/SGPT 16 U/L (7.0-40); AST/SGOT 17 U/L (<34); BILIRUBIN,DIRECT < 0.1 MG/DL (<0.4); BILIRUBIN,TOTAL 0.2 MG/DL (0.3-1.2); BLOOD UREA NITROGEN 19 MG/DL (9-23); CALCIUM LEVEL 9.1 MG/DL (8.5-10.1); CARBON DIOXIDE LEVEL 25 MMOL/L (20-31); CHLORIDE LEVEL 102 MMOL/L (98-107); CREATININE FOR GFR 0.46 MG/DL (0.55-1.30); GLOMERULAR FILTRATION RATE > 60.0 (>60); GLUCOSE, FASTING 70 MG/DL (60-100); PHOSPHORUS LEVEL 3.6 MG/DL (2.5-4.9); POTASSIUM SERUM 4.9 MMOL/L (3.5-5.1); SODIUM LEVEL 137 MMOL/L (136-145); TOTAL PROTEIN 7.2 G/DL (5.7-8.2)
== END ==
LOC: M SHH 14:19
PROVIDERS: ATTEND Internal Medicine Gastroenterology
DX: K31.84 Gastroparesis (principal); R62.7 Adult failure to thrive; R63.4 Abnormal weight loss

== ENCOUNTER → 2022-10-31 | Outpatient (REF) | payer BC ==
[2022-10-31 15:19] LABS: BASO % 0.1 % (0.0-1.0); EOS # 0.1 10^3/uL (0.0-0.5); EOS % 0.8 % (0.0-3.0); HEMATOCRIT 32.5 % (36.0-47.0); HEMOGLOBIN 10.2 g/dl (12.0-15.5); LYMPH # 0.9 10^3/uL (1.5-5.0); LYMPH % 9.8 % (24.0-44.0); MEAN CORPUSCULAR HEMOGLOBIN 28.2 pg (27.0-33.0); MEAN CORPUSCULAR HGB CONC 31.4 g/dl (32.0-36.5); MEAN CORPUSCULAR VOLUME 89.8 fl (80.0-96.0); MONO # 0.5 10^3/uL (0.0-0.8); MONO % 5.1 % (2.0-8.0); NEUTROPHILS # 7.3 10^3/uL (1.5-8.5); NEUTROPHILS % 83.9 % (36.0-66.0); PLATELET COUNT, AUTOMATED 186 10^3/uL (150-450); RED BLOOD COUNT 3.62 10^6/uL (4.00-5.40); WHITE BLOOD COUNT 8.8 10^3/uL (4.0-10.0)
[2022-10-31 15:54] LABS: MAGNESIUM LEVEL 1.8 MG/DL (1.8-2.4)
[2022-10-31 15:55] LABS: ALBUMIN 3.5 G/DL (3.2-5.2); ALKALINE PHOSPHATASE 67 U/L (46-116); ALT/SGPT 11 U/L (7.0-40); AST/SGOT 16 U/L (<34); BILIRUBIN,DIRECT 0.1 MG/DL (<0.4); BILIRUBIN,TOTAL 0.3 MG/DL (0.3-1.2); BLOOD UREA NITROGEN 14 MG/DL (9-23); CALCIUM LEVEL 8.8 MG/DL (8.5-10.1); CARBON DIOXIDE LEVEL 25 MMOL/L (20-31); CHLORIDE LEVEL 104 MMOL/L (98-107); CREATININE FOR GFR 0.57 MG/DL (0.55-1.30); GLOMERULAR FILTRATION RATE > 60.0 (>60); GLUCOSE, FASTING 79 MG/DL (60-100); PHOSPHORUS LEVEL 2.6 MG/DL (2.5-4.9); POTASSIUM SERUM 4.6 MMOL/L (3.5-5.1); SODIUM LEVEL 136 MMOL/L (136-145); TOTAL PROTEIN 6.8 G/DL (5.7-8.2)
== END ==
LOC: M SHH 15:09
PROVIDERS: ATTEND Internal Medicine Gastroenterology
DX: K31.84 Gastroparesis (principal); R62.7 Adult failure to thrive; R63.4 Abnormal weight loss

== ENCOUNTER → 2022-10-31 | Outpatient (REF) | payer BC | LOC: M LAB REF 16:55 | PROVIDERS: ATTEND Nurse Practitioner Family | DX: R50.9 Fever, unspecified (principal) ==

== ENCOUNTER → 2022-11-07 | Outpatient (REF) | payer BC ==
[2022-11-07 14:21] LABS: BASO % 0.4 % (0.0-1.0); EOS # 0.3 10^3/uL (0.0-0.5); HEMATOCRIT 33.9 % (36.0-47.0); HEMOGLOBIN 10.5 g/dl (12.0-15.5); LYMPH # 1.9 10^3/uL (1.5-5.0); LYMPH % 28.6 % (24.0-44.0); MEAN CORPUSCULAR VOLUME 90.4 fl (80.0-96.0); MONO # 0.4 10^3/uL (0.0-0.8); MONO % 6.4 % (2.0-8.0); NEUTROPHILS % 60.2 % (36.0-66.0); PLATELET COUNT, AUTOMATED 238 10^3/uL (150-450); RED BLOOD COUNT 3.75 10^6/uL (4.00-5.40); WHITE BLOOD COUNT 6.7 10^3/uL (4.0-10.0)
[2022-11-07 14:47] LABS: BILIRUBIN,DIRECT < 0.1 MG/DL (<0.4)
[2022-11-07 14:48] LABS: ALBUMIN 3.4 G/DL (3.2-5.2); ALKALINE PHOSPHATASE 70 U/L (46-116); ALT/SGPT 11 U/L (7.0-40); AST/SGOT 19 U/L (<34); BILIRUBIN,TOTAL 0.2 MG/DL (0.3-1.2); BLOOD UREA NITROGEN 14 MG/DL (9-23); CALCIUM LEVEL 8.6 MG/DL (8.5-10.1); CARBON DIOXIDE LEVEL 27 MMOL/L (20-31); CHLORIDE LEVEL 104 MMOL/L (98-107); GLOMERULAR FILTRATION RATE > 60.0 (>60); GLUCOSE, FASTING 70 MG/DL (60-100); PHOSPHORUS LEVEL 2.7 MG/DL (2.5-4.9); POTASSIUM SERUM 5.4 MMOL/L (3.5-5.1); SODIUM LEVEL 138 MMOL/L (136-145); TOTAL PROTEIN 6.9 G/DL (5.7-8.2)
== END ==
LOC: M SHH 13:04
PROVIDERS: ATTEND Internal Medicine Gastroenterology
DX: K31.84 Gastroparesis (principal); R62.7 Adult failure to thrive; R63.4 Abnormal weight loss

== ENCOUNTER → 2022-11-09 | Outpatient (CLI) | payer BC ==
[~2022-11-09] MED LIST changes: +LIDOCAINE 1% MDV 20ML VIAL As Ordered ONE
[2022-11-09 12:10] VITALS: BP 99/65
== END ==
LOC: M IRPRO 10:07
PROVIDERS: ATTEND Internal Medicine Gastroenterology
DX: R62.7 Adult failure to thrive (principal); K31.84 Gastroparesis; K59.04 Chronic idiopathic constipation
CPT/HCPCS: 36561; 36589; C1751; C1769; J1642; J1644

== ENCOUNTER → 2022-11-15 | Outpatient (REF) | payer BC ==
[~2022-11-15] MED LIST changes: -LIDOCAINE 1% MDV 20ML VIAL As Ordered ONE
[2022-11-15 15:48] LABS: BASO % 0.5 % (0.0-1.0); EOS # 0.6 10^3/uL (0.0-0.5); EOS % 9.5 % (0.0-3.0); HEMATOCRIT 32.3 % (36.0-47.0); LYMPH % 30.9 % (24.0-44.0); MEAN CORPUSCULAR HEMOGLOBIN 28.1 pg (27.0-33.0); MEAN CORPUSCULAR VOLUME 90.7 fl (80.0-96.0); MONO # 0.4 10^3/uL (0.0-0.8); MONO % 5.4 % (2.0-8.0); NEUTROPHILS # 3.5 10^3/uL (1.5-8.5); NEUTROPHILS % 53.2 % (36.0-66.0); PLATELET COUNT, AUTOMATED 262 10^3/uL (150-450); RED BLOOD COUNT 3.56 10^6/uL (4.00-5.40); WHITE BLOOD COUNT 6.5 10^3/uL (4.0-10.0)
[2022-11-15 16:12] LABS: ALBUMIN 3.2 G/DL (3.2-5.2); ALKALINE PHOSPHATASE 63 U/L (46-116); ALT/SGPT 10 U/L (7.0-40); AST/SGOT 15 U/L (<34); BILIRUBIN,DIRECT < 0.1 MG/DL (<0.4); BILIRUBIN,TOTAL < 0.2 MG/DL (0.3-1.2); BLOOD UREA NITROGEN 12 MG/DL (9-23); CALCIUM LEVEL 8.6 MG/DL (8.5-10.1); CARBON DIOXIDE LEVEL 26 MMOL/L (20-31); CHLORIDE LEVEL 105 MMOL/L (98-107); CREATININE FOR GFR 0.52 MG/DL (0.55-1.30); GLOMERULAR FILTRATION RATE > 60.0 (>60); GLUCOSE, FASTING 79 MG/DL (60-100); PHOSPHORUS LEVEL 4.2 MG/DL (2.5-4.9); POTASSIUM SERUM 4.5 MMOL/L (3.5-5.1); SODIUM LEVEL 140 MMOL/L (136-145); TOTAL PROTEIN 6.5 G/DL (5.7-8.2)
== END ==
LOC: M SHH 15:11
PROVIDERS: ATTEND Internal Medicine Gastroenterology
DX: K31.84 Gastroparesis (principal); R62.7 Adult failure to thrive; R63.4 Abnormal weight loss

== ENCOUNTER → 2022-11-22 | Outpatient (REF) | payer BC ==
[2022-11-22 10:40] LABS: BASO # 0.1 10^3/uL (0.0-0.2); EOS # 0.8 10^3/uL (0.0-0.5); EOS % 13.6 % (0.0-3.0); HEMOGLOBIN 10.9 g/dl (12.0-15.5); LYMPH # 2.5 10^3/uL (1.5-5.0); LYMPH % 42.2 % (24.0-44.0); MEAN CORPUSCULAR HEMOGLOBIN 27.5 pg (27.0-33.0); MEAN CORPUSCULAR HGB CONC 31.1 g/dl (32.0-36.5); MEAN CORPUSCULAR VOLUME 88.4 fl (80.0-96.0); MONO # 0.4 10^3/uL (0.0-0.8); NEUTROPHILS # 2.2 10^3/uL (1.5-8.5); PLATELET COUNT, AUTOMATED 251 10^3/uL (150-450); RED BLOOD COUNT 3.96 10^6/uL (4.00-5.40); WHITE BLOOD COUNT 5.9 10^3/uL (4.0-10.0)
[2022-11-22 11:04] LABS: ALBUMIN 3.6 G/DL (3.2-5.2); ALKALINE PHOSPHATASE 65 U/L (46-116); ALT/SGPT 14 U/L (7.0-40); AST/SGOT 19 U/L (<34); BILIRUBIN,DIRECT < 0.1 MG/DL (<0.4); BILIRUBIN,TOTAL 0.2 MG/DL (0.3-1.2); BLOOD UREA NITROGEN 17 MG/DL (9-23); CALCIUM LEVEL 9.2 MG/DL (8.5-10.1); CARBON DIOXIDE LEVEL 25 MMOL/L (20-31); CHLORIDE LEVEL 104 MMOL/L (98-107); CREATININE FOR GFR 0.57 MG/DL (0.55-1.30); GLOMERULAR FILTRATION RATE > 60.0 (>60); GLUCOSE, FASTING 75 MG/DL (60-100); PHOSPHORUS LEVEL 4.9 MG/DL (2.5-4.9); POTASSIUM SERUM 4.1 MMOL/L (3.5-5.1); SODIUM LEVEL 141 MMOL/L (136-145); TOTAL PROTEIN 6.9 G/DL (5.7-8.2)
== END ==
LOC: M SHH 10:13
PROVIDERS: ATTEND Internal Medicine Gastroenterology
DX: K31.84 Gastroparesis (principal); R62.7 Adult failure to thrive; R63.4 Abnormal weight loss

== ENCOUNTER → 2022-11-28 | Outpatient (REF) | payer BC ==
[2022-11-28 12:10] LABS: BASO % 0.6 % (0.0-1.0); EOS # 0.6 10^3/uL (0.0-0.5); EOS % 12.5 % (0.0-3.0); HEMATOCRIT 34.6 % (36.0-47.0); HEMOGLOBIN 11.1 g/dl (12.0-15.5); LYMPH # 2.1 10^3/uL (1.5-5.0); LYMPH % 42.5 % (24.0-44.0); MEAN CORPUSCULAR HEMOGLOBIN 27.9 pg (27.0-33.0); MEAN CORPUSCULAR HGB CONC 32.1 g/dl (32.0-36.5); MEAN CORPUSCULAR VOLUME 86.9 fl (80.0-96.0); MONO # 0.4 10^3/uL (0.0-0.8); MONO % 8.4 % (2.0-8.0); NEUTROPHILS # 1.7 10^3/uL (1.5-8.5); NEUTROPHILS % 35.8 % (36.0-66.0); PLATELET COUNT, AUTOMATED 235 10^3/uL (150-450); RED BLOOD COUNT 3.98 10^6/uL (4.00-5.40); WHITE BLOOD COUNT 4.9 10^3/uL (4.0-10.0)
[2022-11-28 12:35] LABS: MAGNESIUM LEVEL 2.1 MG/DL (1.8-2.4)
[2022-11-28 12:36] LABS: BILIRUBIN,DIRECT 0.1 MG/DL (<0.4)
[2022-11-28 12:37] LABS: ALBUMIN 3.7 G/DL (3.2-5.2); ALKALINE PHOSPHATASE 64 U/L (46-116); ALT/SGPT 16 U/L (7.0-40); AST/SGOT 21 U/L (<34); BILIRUBIN,TOTAL 0.4 MG/DL (0.3-1.2); BLOOD UREA NITROGEN 11 MG/DL (9-23); CARBON DIOXIDE LEVEL 28 MMOL/L (20-31); CHLORIDE LEVEL 103 MMOL/L (98-107); CREATININE FOR GFR 0.69 MG/DL (0.55-1.30); GLOMERULAR FILTRATION RATE > 60.0 (>60); GLUCOSE, FASTING 70 MG/DL (60-100); PHOSPHORUS LEVEL 4.6 MG/DL (2.5-4.9); POTASSIUM SERUM 4.1 MMOL/L (3.5-5.1); SODIUM LEVEL 139 MMOL/L (136-145); TOTAL PROTEIN 6.4 G/DL (5.7-8.2)
== END ==
LOC: M SHH 11:44
PROVIDERS: ATTEND Internal Medicine Gastroenterology
DX: K31.84 Gastroparesis (principal); R62.7 Adult failure to thrive; R63.4 Abnormal weight loss

== ENCOUNTER → 2022-11-30 | Outpatient (CLI) | payer BC | LOC: M RAD 11:49 | PROVIDERS: ATTEND Internal Medicine Gastroenterology | DX: K31.84 Gastroparesis (principal); R62.7 Adult failure to thrive; Z53.9 Procedure and treatment not carried out, unspecified reason ==

== ENCOUNTER → 2022-12-05 | Outpatient (REF) | payer BC ==
[2022-12-05 13:37] LABS: BASO % 0.4 % (0.0-1.0); EOS # 0.7 10^3/uL (0.0-0.5); EOS % 15.9 % (0.0-3.0); HEMATOCRIT 34.2 % (36.0-47.0); HEMOGLOBIN 10.6 g/dl (12.0-15.5); LYMPH # 1.8 10^3/uL (1.5-5.0); LYMPH % 40.2 % (24.0-44.0); MEAN CORPUSCULAR HEMOGLOBIN 27.6 pg (27.0-33.0); MEAN CORPUSCULAR VOLUME 89.1 fl (80.0-96.0); MONO # 0.3 10^3/uL (0.0-0.8); MONO % 7.3 % (2.0-8.0); NEUTROPHILS # 1.6 10^3/uL (1.5-8.5); PLATELET COUNT, AUTOMATED 200 10^3/uL (150-450); RED BLOOD COUNT 3.84 10^6/uL (4.00-5.40); WHITE BLOOD COUNT 4.5 10^3/uL (4.0-10.0)
[2022-12-05 14:08] LABS: MAGNESIUM LEVEL 1.7 MG/DL (1.8-2.4)
[2022-12-05 14:09] LABS: BILIRUBIN,DIRECT < 0.1 MG/DL (<0.4)
[2022-12-05 14:10] LABS: ALBUMIN 3.5 G/DL (3.2-5.2); ALKALINE PHOSPHATASE 63 U/L (46-116); ALT/SGPT 15 U/L (7.0-40); AST/SGOT 17 U/L (<34); BILIRUBIN,TOTAL 0.2 MG/DL (0.3-1.2); BLOOD UREA NITROGEN 13 MG/DL (9-23); CALCIUM LEVEL 8.4 MG/DL (8.5-10.1); CARBON DIOXIDE LEVEL 26 MMOL/L (20-31); CHLORIDE LEVEL 106 MMOL/L (98-107); CREATININE FOR GFR 0.59 MG/DL (0.55-1.30); GLOMERULAR FILTRATION RATE > 60.0 (>60); GLUCOSE, FASTING 92 MG/DL (60-100); PHOSPHORUS LEVEL 4.5 MG/DL (2.5-4.9); SODIUM LEVEL 140 MMOL/L (136-145); TOTAL PROTEIN 6.5 G/DL (5.7-8.2)
== END ==
LOC: M SHH 13:02
PROVIDERS: ATTEND Internal Medicine Gastroenterology
DX: K31.84 Gastroparesis (principal); R62.7 Adult failure to thrive; R63.4 Abnormal weight loss

== ENCOUNTER → 2022-12-12 | Outpatient (REF) | payer BC ==
[2022-12-12 16:18] LABS: BILIRUBIN,DIRECT < 0.1 MG/DL (<0.4)
[2022-12-12 16:19] LABS: ALKALINE PHOSPHATASE 66 U/L (46-116); ALT/SGPT 22 U/L (7.0-40); AST/SGOT 24 U/L (<34); BILIRUBIN,TOTAL 0.2 MG/DL (0.3-1.2); BLOOD UREA NITROGEN 18 MG/DL (9-23); CALCIUM LEVEL 9.3 MG/DL (8.5-10.1); CARBON DIOXIDE LEVEL 27 MMOL/L (20-31); CHLORIDE LEVEL 105 MMOL/L (98-107); CREATININE FOR GFR 0.59 MG/DL (0.55-1.30); GLOMERULAR FILTRATION RATE > 60.0 (>60); GLUCOSE, FASTING 57 MG/DL (60-100); PHOSPHORUS LEVEL 4.1 MG/DL (2.5-4.9); POTASSIUM SERUM 4.1 MMOL/L (3.5-5.1); SODIUM LEVEL 142 MMOL/L (136-145); TOTAL PROTEIN 7.2 G/DL (5.7-8.2)
[2022-12-12 17:51] LABS: BASO % 0.6 % (0.0-1.0); EOS # 0.5 10^3/uL (0.0-0.5); EOS % 9.5 % (0.0-3.0); HEMATOCRIT 36.6 % (36.0-47.0); HEMOGLOBIN 11.4 g/dl (12.0-15.5); LYMPH # 1.9 10^3/uL (1.5-5.0); LYMPH % 38.5 % (24.0-44.0); MEAN CORPUSCULAR HEMOGLOBIN 27.9 pg (27.0-33.0); MEAN CORPUSCULAR HGB CONC 31.1 g/dl (32.0-36.5); MEAN CORPUSCULAR VOLUME 89.7 fl (80.0-96.0); MONO # 0.5 10^3/uL (0.0-0.8); MONO % 9.1 % (2.0-8.0); NEUTROPHILS # 2.1 10^3/uL (1.5-8.5); NEUTROPHILS % 42.1 % (36.0-66.0); PLATELET COUNT, AUTOMATED 203 10^3/uL (150-450); RED BLOOD COUNT 4.08 10^6/uL (4.00-5.40); WHITE BLOOD COUNT 4.9 10^3/uL (4.0-10.0)
== END ==
LOC: M SHH 15:14
PROVIDERS: ATTEND Internal Medicine Gastroenterology
DX: K31.84 Gastroparesis (principal); R62.7 Adult failure to thrive; R63.4 Abnormal weight loss

== ENCOUNTER → 2022-12-19 | Outpatient (REF) | payer BC ==
[2022-12-19 11:52] LABS: BASO % 0.6 % (0.0-1.0); EOS # 0.4 10^3/uL (0.0-0.5); EOS % 5.6 % (0.0-3.0); HEMATOCRIT 37.4 % (36.0-47.0); HEMOGLOBIN 12.2 g/dl (12.0-15.5); LYMPH # 2.8 10^3/uL (1.5-5.0); LYMPH % 42.8 % (24.0-44.0); MEAN CORPUSCULAR HEMOGLOBIN 27.9 pg (27.0-33.0); MEAN CORPUSCULAR HGB CONC 32.6 g/dl (32.0-36.5); MEAN CORPUSCULAR VOLUME 85.4 fl (80.0-96.0); MONO # 0.6 10^3/uL (0.0-0.8); MONO % 9.6 % (2.0-8.0); NEUTROPHILS # 2.7 10^3/uL (1.5-8.5); NEUTROPHILS % 41.2 % (36.0-66.0); PLATELET COUNT, AUTOMATED 228 10^3/uL (150-450); RED BLOOD COUNT 4.38 10^6/uL (4.00-5.40); WHITE BLOOD COUNT 6.5 10^3/uL (4.0-10.0)
[2022-12-19 12:29] LABS: ALBUMIN 4.1 G/DL (3.2-5.2); ALKALINE PHOSPHATASE 71 U/L (46-116); ALT/SGPT 15 U/L (7.0-40); AST/SGOT 20 U/L (<34); BILIRUBIN,DIRECT < 0.1 MG/DL (<0.4); BILIRUBIN,TOTAL 0.2 MG/DL (0.3-1.2); BLOOD UREA NITROGEN 25 MG/DL (9-23); CALCIUM LEVEL 9.3 MG/DL (8.5-10.1); CARBON DIOXIDE LEVEL 32 MMOL/L (20-31); CHLORIDE LEVEL 100 MMOL/L (98-107); CREATININE FOR GFR 0.67 MG/DL (0.55-1.30); GLOMERULAR FILTRATION RATE > 60.0 (>60); GLUCOSE, FASTING 58 MG/DL (60-100); MAGNESIUM LEVEL 2.2 MG/DL (1.8-2.4); PHOSPHORUS LEVEL 3.3 MG/DL (2.5-4.9); POTASSIUM SERUM 3.8 MMOL/L (3.5-5.1); SODIUM LEVEL 139 MMOL/L (136-145); TOTAL PROTEIN 7.3 G/DL (5.7-8.2)
== END ==
LOC: M SHH 11:19
PROVIDERS: ATTEND Internal Medicine Gastroenterology
DX: K31.84 Gastroparesis (principal); R62.7 Adult failure to thrive; R63.4 Abnormal weight loss

== ENCOUNTER → 2022-12-26 | Outpatient (REF) | payer BC ==
[2022-12-26 12:13] LABS: BASO % 0.6 % (0.0-1.0); EOS # 0.4 10^3/uL (0.0-0.5); EOS % 7.6 % (0.0-3.0); HEMATOCRIT 33.7 % (36.0-47.0); HEMOGLOBIN 10.7 g/dl (12.0-15.5); LYMPH # 1.8 10^3/uL (1.5-5.0); LYMPH % 39.3 % (24.0-44.0); MEAN CORPUSCULAR HEMOGLOBIN 27.6 pg (27.0-33.0); MEAN CORPUSCULAR HGB CONC 31.8 g/dl (32.0-36.5); MEAN CORPUSCULAR VOLUME 86.9 fl (80.0-96.0); MONO # 0.4 10^3/uL (0.0-0.8); MONO % 7.8 % (2.0-8.0); NEUTROPHILS # 2.1 10^3/uL (1.5-8.5); NEUTROPHILS % 44.5 % (36.0-66.0); PLATELET COUNT, AUTOMATED 215 10^3/uL (150-450); RED BLOOD COUNT 3.88 10^6/uL (4.00-5.40); WHITE BLOOD COUNT 4.6 10^3/uL (4.0-10.0)
[2022-12-26 12:34] LABS: ALBUMIN 3.6 G/DL (3.2-5.2); ALKALINE PHOSPHATASE 71 U/L (46-116); ALT/SGPT 15 U/L (7.0-40); AST/SGOT 21 U/L (<34); BILIRUBIN,DIRECT < 0.1 MG/DL (<0.4); BILIRUBIN,TOTAL 0.3 MG/DL (0.3-1.2); BLOOD UREA NITROGEN 12 MG/DL (9-23); CALCIUM LEVEL 8.7 MG/DL (8.5-10.1); CARBON DIOXIDE LEVEL 28 MMOL/L (20-31); CHLORIDE LEVEL 105 MMOL/L (98-107); CREATININE FOR GFR 0.61 MG/DL (0.55-1.30); GLOMERULAR FILTRATION RATE > 60.0 (>60); GLUCOSE, FASTING 87 MG/DL (60-100); MAGNESIUM LEVEL 1.7 MG/DL (1.8-2.4); PHOSPHORUS LEVEL 3.8 MG/DL (2.5-4.9); POTASSIUM SERUM 3.9 MMOL/L (3.5-5.1); SODIUM LEVEL 140 MMOL/L (136-145); TOTAL PROTEIN 6.5 G/DL (5.7-8.2)
== END ==
LOC: M SHH 11:43
PROVIDERS: ATTEND Internal Medicine Gastroenterology
DX: K31.84 Gastroparesis (principal); R62.7 Adult failure to thrive; R63.4 Abnormal weight loss

== ENCOUNTER → 2023-01-02 | Outpatient (REF) | payer BC ==
[2023-01-02 12:45] LABS: BASO % 0.6 % (0.0-1.0); EOS # 0.3 10^3/uL (0.0-0.5); EOS % 6.5 % (0.0-3.0); HEMATOCRIT 34.8 % (36.0-47.0); HEMOGLOBIN 11.2 g/dl (12.0-15.5); LYMPH % 38.3 % (24.0-44.0); MEAN CORPUSCULAR HEMOGLOBIN 27.9 pg (27.0-33.0); MEAN CORPUSCULAR HGB CONC 32.2 g/dl (32.0-36.5); MEAN CORPUSCULAR VOLUME 86.6 fl (80.0-96.0); MONO # 0.3 10^3/uL (0.0-0.8); MONO % 6.5 % (2.0-8.0); NEUTROPHILS # 2.5 10^3/uL (1.5-8.5); NEUTROPHILS % 47.9 % (36.0-66.0); PLATELET COUNT, AUTOMATED 204 10^3/uL (150-450); RED BLOOD COUNT 4.02 10^6/uL (4.00-5.40); WHITE BLOOD COUNT 5.3 10^3/uL (4.0-10.0)
[2023-01-02 13:29] LABS: ALBUMIN 3.5 G/DL (3.2-5.2); ALKALINE PHOSPHATASE 65 U/L (46-116); ALT/SGPT 16 U/L (7.0-40); AST/SGOT < 8 U/L (<34); BILIRUBIN,DIRECT < 0.1 MG/DL (<0.4); BILIRUBIN,TOTAL 0.2 MG/DL (0.3-1.2); BLOOD UREA NITROGEN 14 MG/DL (9-23); CALCIUM LEVEL 9.2 MG/DL (8.5-10.1); CARBON DIOXIDE LEVEL 27 MMOL/L (20-31); CHLORIDE LEVEL 108 MMOL/L (98-107); CREATININE FOR GFR 0.56 MG/DL (0.55-1.30); GLOMERULAR FILTRATION RATE > 60.0 (>60); GLUCOSE, FASTING 78 MG/DL (60-100); MAGNESIUM LEVEL 1.8 MG/DL (1.8-2.4); PHOSPHORUS LEVEL 4.5 MG/DL (2.5-4.9); POTASSIUM SERUM 4.3 MMOL/L (3.5-5.1); SODIUM LEVEL 141 MMOL/L (136-145); TOTAL PROTEIN 6.4 G/DL (5.7-8.2)
== END ==
LOC: M SHH 12:18
PROVIDERS: ATTEND Internal Medicine Gastroenterology
DX: K31.84 Gastroparesis (principal); R62.7 Adult failure to thrive; R63.4 Abnormal weight loss

== ENCOUNTER → 2023-01-09 | Outpatient (REF) | payer BC ==
[2023-01-09 12:57] LABS: BASO % 0.7 % (0.0-1.0); EOS # 0.3 10^3/uL (0.0-0.5); EOS % 7.6 % (0.0-3.0); HEMATOCRIT 33.3 % (36.0-47.0); HEMOGLOBIN 10.6 g/dl (12.0-15.5); LYMPH # 1.5 10^3/uL (1.5-5.0); LYMPH % 35.5 % (24.0-44.0); MEAN CORPUSCULAR HGB CONC 31.8 g/dl (32.0-36.5); MEAN CORPUSCULAR VOLUME 87.9 fl (80.0-96.0); MONO # 0.3 10^3/uL (0.0-0.8); MONO % 7.1 % (2.0-8.0); NEUTROPHILS % 48.9 % (36.0-66.0); PLATELET COUNT, AUTOMATED 202 10^3/uL (150-450); RED BLOOD COUNT 3.79 10^6/uL (4.00-5.40); WHITE BLOOD COUNT 4.1 10^3/uL (4.0-10.0)
[2023-01-09 13:31] LABS: ALBUMIN 3.5 G/DL (3.2-5.2); ALKALINE PHOSPHATASE 63 U/L (46-116); ALT/SGPT 17 U/L (7.0-40); AST/SGOT 20 U/L (<34); BILIRUBIN,DIRECT < 0.1 MG/DL (<0.4); BILIRUBIN,TOTAL 0.2 MG/DL (0.3-1.2); BLOOD UREA NITROGEN 12 MG/DL (9-23); CALCIUM LEVEL 9.2 MG/DL (8.5-10.1); CARBON DIOXIDE LEVEL 27 MMOL/L (20-31); CHLORIDE LEVEL 109 MMOL/L (98-107); CREATININE FOR GFR 0.58 MG/DL (0.55-1.30); GLOMERULAR FILTRATION RATE > 60.0 (>60); GLUCOSE, FASTING 79 MG/DL (60-100); MAGNESIUM LEVEL 2.1 MG/DL (1.8-2.4); PHOSPHORUS LEVEL 4.5 MG/DL (2.5-4.9); POTASSIUM SERUM 4.4 MMOL/L (3.5-5.1); SODIUM LEVEL 141 MMOL/L (136-145); TOTAL PROTEIN 6.4 G/DL (5.7-8.2)
== END ==
LOC: M SHH 12:13
PROVIDERS: ATTEND Internal Medicine Gastroenterology
DX: K31.84 Gastroparesis (principal); R63.4 Abnormal weight loss; R62.7 Adult failure to thrive

== ENCOUNTER → 2023-01-16 | Outpatient (REF) | payer BC ==
[2023-01-16 14:18] LABS: BASO % 0.5 % (0.0-1.0); EOS # 0.3 10^3/uL (0.0-0.5); EOS % 7.6 % (0.0-3.0); HEMATOCRIT 35.2 % (36.0-47.0); HEMOGLOBIN 11.3 g/dl (12.0-15.5); LYMPH # 1.9 10^3/uL (1.5-5.0); LYMPH % 47.2 % (24.0-44.0); MEAN CORPUSCULAR HGB CONC 32.1 g/dl (32.0-36.5); MEAN CORPUSCULAR VOLUME 87.1 fl (80.0-96.0); MONO # 0.3 10^3/uL (0.0-0.8); MONO % 8.4 % (2.0-8.0); NEUTROPHILS # 1.4 10^3/uL (1.5-8.5); NEUTROPHILS % 36.3 % (36.0-66.0); PLATELET COUNT, AUTOMATED 205 10^3/uL (150-450); RED BLOOD COUNT 4.04 10^6/uL (4.00-5.40); WHITE BLOOD COUNT 3.9 10^3/uL (4.0-10.0)
[2023-01-16 14:39] LABS: ALBUMIN 3.9 G/DL (3.2-5.2); ALKALINE PHOSPHATASE 62 U/L (46-116); ALT/SGPT 24 U/L (7.0-40); AST/SGOT 29 U/L (<34); BILIRUBIN,DIRECT < 0.1 MG/DL (<0.4); BILIRUBIN,TOTAL 0.3 MG/DL (0.3-1.2); BLOOD UREA NITROGEN 17 MG/DL (9-23); CALCIUM LEVEL 8.8 MG/DL (8.5-10.1); CARBON DIOXIDE LEVEL 29 MMOL/L (20-31); CHLORIDE LEVEL 104 MMOL/L (98-107); CREATININE FOR GFR 0.53 MG/DL (0.55-1.30); GLOMERULAR FILTRATION RATE > 60.0 (>60); GLUCOSE, FASTING 76 MG/DL (60-100); MAGNESIUM LEVEL 2.1 MG/DL (1.8-2.4); PHOSPHORUS LEVEL 3.7 MG/DL (2.5-4.9); POTASSIUM SERUM 3.9 MMOL/L (3.5-5.1); SODIUM LEVEL 139 MMOL/L (136-145)
== END ==
LOC: M SHH 13:55
PROVIDERS: ATTEND Internal Medicine Gastroenterology
DX: K31.84 Gastroparesis (principal); R62.7 Adult failure to thrive; R63.4 Abnormal weight loss

== ENCOUNTER → 2023-01-23 | Outpatient (REF) | payer BC ==
[2023-01-23 15:45] LABS: BASO % 0.5 % (0.0-1.0); EOS # 0.2 10^3/uL (0.0-0.5); EOS % 3.3 % (0.0-3.0); HEMATOCRIT 36.3 % (36.0-47.0); HEMOGLOBIN 12.1 g/dl (12.0-15.5); LYMPH # 2.1 10^3/uL (1.5-5.0); LYMPH % 33.2 % (24.0-44.0); MEAN CORPUSCULAR HEMOGLOBIN 28.7 pg (27.0-33.0); MEAN CORPUSCULAR HGB CONC 33.3 g/dl (32.0-36.5); MEAN CORPUSCULAR VOLUME 86.2 fl (80.0-96.0); MONO # 0.4 10^3/uL (0.0-0.8); MONO % 5.8 % (2.0-8.0); NEUTROPHILS # 3.6 10^3/uL (1.5-8.5); NEUTROPHILS % 56.9 % (36.0-66.0); PLATELET COUNT, AUTOMATED 206 10^3/uL (150-450); RED BLOOD COUNT 4.21 10^6/uL (4.00-5.40); WHITE BLOOD COUNT 6.4 10^3/uL (4.0-10.0)
[2023-01-23 16:18] LABS: ALBUMIN 3.9 G/DL (3.2-5.2); ALKALINE PHOSPHATASE 63 U/L (46-116); ALT/SGPT 21 U/L (7.0-40); AST/SGOT 22 U/L (<34); BILIRUBIN,DIRECT < 0.1 MG/DL (<0.4); BILIRUBIN,TOTAL 0.2 MG/DL (0.3-1.2); BLOOD UREA NITROGEN 22 MG/DL (9-23); CALCIUM LEVEL 9.1 MG/DL (8.5-10.1); CARBON DIOXIDE LEVEL 30 MMOL/L (20-31); CHLORIDE LEVEL 99 MMOL/L (98-107); CREATININE FOR GFR 0.64 MG/DL (0.55-1.30); GLOMERULAR FILTRATION RATE > 60.0 (>60); GLUCOSE, FASTING 65 MG/DL (60-100); MAGNESIUM LEVEL 2.1 MG/DL (1.8-2.4); PHOSPHORUS LEVEL 3.6 MG/DL (2.5-4.9); SODIUM LEVEL 138 MMOL/L (136-145)
== END ==
LOC: M SHH 15:17
PROVIDERS: ATTEND Internal Medicine Gastroenterology
DX: E16.2 Hypoglycemia, unspecified (principal); K31.84 Gastroparesis; R62.7 Adult failure to thrive; R63.4 Abnormal weight loss

== ENCOUNTER → 2023-01-30 | Outpatient (REF) | payer BC ==
[2023-01-30 12:25] LABS: BASO % 0.6 % (0.0-1.0); EOS # 0.4 10^3/uL (0.0-0.5); EOS % 5.3 % (0.0-3.0); HEMATOCRIT 38.6 % (36.0-47.0); HEMOGLOBIN 12.5 g/dl (12.0-15.5); LYMPH # 3.6 10^3/uL (1.5-5.0); LYMPH % 50.6 % (24.0-44.0); MEAN CORPUSCULAR HEMOGLOBIN 28.2 pg (27.0-33.0); MEAN CORPUSCULAR HGB CONC 32.4 g/dl (32.0-36.5); MEAN CORPUSCULAR VOLUME 87.1 fl (80.0-96.0); MONO # 0.9 10^3/uL (0.0-0.8); MONO % 12.2 % (2.0-8.0); NEUTROPHILS # 2.2 10^3/uL (1.5-8.5); NEUTROPHILS % 31.2 % (36.0-66.0); PLATELET COUNT, AUTOMATED 242 10^3/uL (150-450); RED BLOOD COUNT 4.43 10^6/uL (4.00-5.40); WHITE BLOOD COUNT 7.2 10^3/uL (4.0-10.0)
[2023-01-30 12:37] LABS: ALBUMIN 3.9 G/DL (3.2-5.2); ALKALINE PHOSPHATASE 60 U/L (46-116); ALT/SGPT 20 U/L (7.0-40); AST/SGOT 23 U/L (<34); BILIRUBIN,DIRECT < 0.1 MG/DL (<0.4); BILIRUBIN,TOTAL 0.2 MG/DL (0.3-1.2); BLOOD UREA NITROGEN 17 MG/DL (9-23); CALCIUM LEVEL 9.1 MG/DL (8.5-10.1); CARBON DIOXIDE LEVEL 32 MMOL/L (20-31); CHLORIDE LEVEL 100 MMOL/L (98-107); CREATININE FOR GFR 0.58 MG/DL (0.55-1.30); GLOMERULAR FILTRATION RATE > 60.0 (>60); GLUCOSE, FASTING 55 MG/DL (60-100); PHOSPHORUS LEVEL 4.1 MG/DL (2.5-4.9); POTASSIUM SERUM 3.6 MMOL/L (3.5-5.1); SODIUM LEVEL 139 MMOL/L (136-145)
== END ==
LOC: M SHH 11:44
PROVIDERS: ATTEND Internal Medicine Gastroenterology
DX: K31.84 Gastroparesis (principal); R62.7 Adult failure to thrive; R63.4 Abnormal weight loss

== ENCOUNTER → 2023-02-06 | Outpatient (REF) | payer BC ==
[~2023-02-06] MED LIST changes: +ONDA-83 PO
[2023-02-06 10:51] LABS: HEMATOCRIT 36.3 % (36.0-47.0); HEMOGLOBIN 11.7 g/dl (12.0-15.5); MEAN CORPUSCULAR HGB CONC 32.2 g/dl (32.0-36.5); MEAN CORPUSCULAR VOLUME 86.8 fl (80.0-96.0); PLATELET COUNT, AUTOMATED 206 10^3/uL (150-450); RED BLOOD COUNT 4.18 10^6/uL (4.00-5.40); WHITE BLOOD COUNT 4.4 10^3/uL (4.0-10.0)
[2023-02-06 11:27] LABS: ALBUMIN 3.7 G/DL (3.2-5.2); ALKALINE PHOSPHATASE 60 U/L (46-116); ALT/SGPT 21 U/L (7.0-40); AST/SGOT 23 U/L (<34); BILIRUBIN,DIRECT 0.1 MG/DL (<0.4); BILIRUBIN,TOTAL 0.4 MG/DL (0.3-1.2); BLOOD UREA NITROGEN 15 MG/DL (9-23); CALCIUM LEVEL 8.6 MG/DL (8.5-10.1); CARBON DIOXIDE LEVEL 33 MMOL/L (20-31); CHLORIDE LEVEL 101 MMOL/L (98-107); GLOMERULAR FILTRATION RATE > 60.0 (>60); GLUCOSE, FASTING 70 MG/DL (60-100); POTASSIUM SERUM 3.3 MMOL/L (3.5-5.1); SODIUM LEVEL 139 MMOL/L (136-145); TOTAL PROTEIN 6.7 G/DL (5.7-8.2)
== END ==
LOC: M SHH 10:13
PROVIDERS: ATTEND Internal Medicine Gastroenterology
DX: K31.84 Gastroparesis (principal); R62.7 Adult failure to thrive

== ENCOUNTER → 2023-02-08 | Outpatient (CLI) | payer BC ==
[~2023-02-08] MED LIST changes: +ELIQ5TAB PO; +FAMO40TA3 PO; +FERR1TAB8 PO; +HYDR-3363 PO; +LIDOCAINE 1% MDV 20ML VIAL As Ordered ONE; +MIDO5TA PO; +SUMA25TA3 PO
[2023-02-08 07:47] VITALS: BP 119/79
== END ==
LOC: M IRPRO 02-07 14:00
PROVIDERS: ATTEND Internal Medicine Gastroenterology
DX: K31.84 Gastroparesis (principal); R62.7 Adult failure to thrive; Z88.1 Allergy status to other antibiotic agents; Z88.8 Allergy status to other drugs, medicaments and biological substances
CPT/HCPCS: 36571; 76937; C1751

== ENCOUNTER 2023-02-10 14:13 | Observation (INO) | payer BC ==
[~2023-02-10] VITALS: Ht 172.7 cm; Wt 59.0 kg
[~2023-02-10 14:13] MED LIST changes: -ELIQ5TAB PO; -FAMO40TA3 PO; -FERR1TAB8 PO; -HYDR-3363 PO; -LIDOCAINE 1% MDV 20ML VIAL As Ordered ONE; -MIDO5TA PO; -SUMA25TA3 PO
[2023-02-10] MEDS ORDERED: LIDOCAINE 1% MDV 20ML VIAL As Ordered ONE (16:27)
[2023-02-10] MEDS ORDERED: GABAPENTIN 300 MG CAP PO ONE (18:10)
[2023-02-10] MEDS ORDERED: MORPHINE 10 MG/ML 1ML VIAL IM ONE (18:10)
[2023-02-10] MEDS ORDERED: HYDROmorphone 2 MG TAB PO ONE (19:50)
[2023-02-10] MEDS: BISACODYL 10MG SUPP PR SCH (21:42)
[2023-02-10] MEDS ORDERED: ACETAMINOPHEN TAB 650MG DOSE (2X325MG) PO PRN (22:20)
[2023-02-10] MEDS ORDERED: MIDO5TA PO (22:32)
[2023-02-10] MEDS ORDERED: FAMO40TA3 PO (22:32)
[2023-02-10] MEDS ORDERED: HYDR-3363 PO (22:32)
[2023-02-10] MEDS ORDERED: HOME MED LIST COMPLETE! XX SCH (22:35)
[2023-02-10 22:57] LABS: BLOOD UREA NITROGEN 21 MG/DL (9-23); CALCIUM LEVEL 8.8 MG/DL (8.5-10.1); CARBON DIOXIDE LEVEL 27 MMOL/L (20-31); CHLORIDE LEVEL 102 MMOL/L (98-107); CREATININE FOR GFR 0.83 MG/DL (0.55-1.30); GLOMERULAR FILTRATION RATE > 60.0 (>60); GLUCOSE, FASTING 73 MG/DL (60-100); POTASSIUM SERUM 3.6 MMOL/L (3.5-5.1); SODIUM LEVEL 138 MMOL/L (136-145)
[2023-02-10 22:59] LABS: RSV AMPLIFICATION NEGATIVE (NEGATIVE)
[2023-02-10] MEDS: LIDOCAINE 5% (LIDODERM) PATCH TOP SCH (23:19)
[2023-02-10] MEDS: KETOROLAC 30 MG/ML 1ML VIAL IV PRN (23:20)
[2023-02-10 23:45] VITALS: BP 100/62
[2023-02-11 00:45] VITALS: BP 100/62
[2023-02-11] MEDS: LR 1,000 ML IV SCH ×2 (01:34→11:09)
[2023-02-11] MEDS: ONDANSETRON 4MG 2ML VIAL IV PRN ×2 (02:06→18:07)
[2023-02-11 06:00] VITALS: BP 90/50
[2023-02-11] MEDS: ENOXAPARIN 60MG/0.6ML SYRINGE (J1650 PER 10MG) SC SCH ×2 (06:21→18:08)
[2023-02-11 07:20] LABS: BLOOD UREA NITROGEN 23 MG/DL (9-23); CALCIUM LEVEL 8.5 MG/DL (8.5-10.1); CARBON DIOXIDE LEVEL 30 MMOL/L (20-31); CHLORIDE LEVEL 103 MMOL/L (98-107); CREATININE FOR GFR 0.87 MG/DL (0.55-1.30); GLOMERULAR FILTRATION RATE > 60.0 (>60); GLUCOSE, FASTING 64 MG/DL (60-100); POTASSIUM SERUM 3.1 MMOL/L (3.5-5.1); SODIUM LEVEL 140 MMOL/L (136-145)
[2023-02-11 08:29] LABS: HEMATOCRIT 34.1 % (36.0-47.0); HEMOGLOBIN 11.1 g/dl (12.0-15.5); MEAN CORPUSCULAR HEMOGLOBIN 28.2 pg (27.0-33.0); MEAN CORPUSCULAR HGB CONC 32.6 g/dl (32.0-36.5); MEAN CORPUSCULAR VOLUME 86.5 fl (80.0-96.0); PLATELET COUNT, AUTOMATED 159 10^3/uL (150-450); RED BLOOD COUNT 3.94 10^6/uL (4.00-5.40); WHITE BLOOD COUNT 4.9 10^3/uL (4.0-10.0)
[2023-02-11 12:46] LABS: MAGNESIUM LEVEL 1.9 MG/DL (1.8-2.4)
[2023-02-11] MEDS ORDERED: LEVALBUTEROL HFA 45MCG/ACT 15GM INHALER INH PRN (12:50)
[2023-02-11] MEDS: MIDODRINE 5 MG TAB PO SCH ×2 (13:26→16:29)
[2023-02-11] MEDS: ASCORBIC ACID 500 MG TAB PO SCH (13:26)
[2023-02-11] MEDS: CYANOCOBALAMIN 500 MCG TAB PO SCH (13:26)
[2023-02-11] MEDS: MIRALAX *UNIT DOSE* 17GM PACKET JT SCH ×2 (13:27→21:00)
[2023-02-11] MEDS ORDERED: GLUCOSE 4GM CHEW TABLET PO PRN (13:35)
[2023-02-11] MEDS ORDERED: GLUCAGON INJ 1MG VIAL SC PRN (13:35)
[2023-02-11] MEDS: DEXTROSE 50% 50ML SYRINGE IV PRN ×3 (13:53→21:43)
[2023-02-11 14:00] VITALS: BP 100/70
[2023-02-11] MEDS: INSULIN LISPRO (NovoLOG) PER UNIT SC SCH ×2 (14:01→17:57)
[2023-02-11] MEDS: DRONABINOL 2.5MG CAP (MARINOL) PO SCH ×2 (16:29→21:41)
[2023-02-11] MEDS: ADVAIR HFA 230/21MCG INHALER INH SCH (19:26)
[2023-02-11] MEDS: FLEET ENEMA PR SCH (21:00)
[2023-02-11] MEDS: LIDOCAINE 5% (LIDODERM) PATCH TOP SCH (21:00)
[2023-02-11] MEDS: AMITRIPTYLINE 25MG TABLET PO SCH (21:41)
[2023-02-11] MEDS: FAMOTIDINE 20 MG TAB PO SCH (21:42)
[2023-02-11] MEDS: BISACODYL 10MG SUPP PR SCH (21:42)
[2023-02-11] MEDS: PRIMIDONE 50MG TAB PO SCH (21:42)
[2023-02-11 22:00] VITALS: BP 92/64
[2023-02-11] MEDS: KCL 20MEQ IN D5/0.45NS 1000ML 1,000 ML IV SCH (22:20)
[2023-02-11] MEDS ORDERED: POTASSIUM CHLORIDE 10% LIQ 20MEQ/15ML UDC JT ONE (23:00)
[2023-02-12] MEDS: INSULIN LISPRO (NovoLOG) PER UNIT SC SCH ×4 (05:02→17:47)
[2023-02-12 05:06] VITALS: BP 90/60
[2023-02-12] MEDS: ENOXAPARIN 60MG/0.6ML SYRINGE (J1650 PER 10MG) SC SCH ×2 (05:41→17:47)
[2023-02-12 07:13] LABS: HEMATOCRIT 28.7 % (36.0-47.0); HEMOGLOBIN 9.5 g/dl (12.0-15.5); MEAN CORPUSCULAR HEMOGLOBIN 28.7 pg (27.0-33.0); MEAN CORPUSCULAR HGB CONC 33.1 g/dl (32.0-36.5); MEAN CORPUSCULAR VOLUME 86.7 fl (80.0-96.0); PLATELET COUNT, AUTOMATED 140 10^3/uL (150-450); RED BLOOD COUNT 3.31 10^6/uL (4.00-5.40); WHITE BLOOD COUNT 3.6 10^3/uL (4.0-10.0)
[2023-02-12] MEDS: ADVAIR HFA 230/21MCG INHALER INH SCH ×2 (07:37→19:31)
[2023-02-12 07:45] LABS: ALKALINE PHOSPHATASE 46 U/L (46-116); ALT/SGPT 15 U/L (7.0-40); AST/SGOT 17 U/L (<34); BILIRUBIN,TOTAL 0.5 MG/DL (0.3-1.2); BLOOD UREA NITROGEN 14 MG/DL (9-23); CALCIUM LEVEL 7.8 MG/DL (8.5-10.1); CARBON DIOXIDE LEVEL 27 MMOL/L (20-31); CHLORIDE LEVEL 105 MMOL/L (98-107); CREATININE FOR GFR 0.66 MG/DL (0.55-1.30); GLOMERULAR FILTRATION RATE > 60.0 (>60); GLUCOSE, FASTING 92 MG/DL (60-100); MAGNESIUM LEVEL 1.8 MG/DL (1.8-2.4); POTASSIUM SERUM 4.1 MMOL/L (3.5-5.1); SODIUM LEVEL 137 MMOL/L (136-145); TOTAL PROTEIN 5.2 G/DL (5.7-8.2)
[2023-02-12] MEDS: FLEET ENEMA PR SCH ×2 (09:00→20:47)
[2023-02-12] MEDS: MIRALAX *UNIT DOSE* 17GM PACKET JT SCH ×3 (09:00→20:48)
[2023-02-12] MEDS: CYANOCOBALAMIN 500 MCG TAB PO SCH (09:01)
[2023-02-12] MEDS: BISACODYL 10MG SUPP PR SCH ×2 (09:01→20:46)
[2023-02-12] MEDS: DRONABINOL 2.5MG CAP (MARINOL) PO SCH ×3 (09:01→20:47)
[2023-02-12] MEDS: ASCORBIC ACID 500 MG TAB PO SCH (09:02)
[2023-02-12] MEDS: KCL 20MEQ IN D5/0.45NS 1000ML 1,000 ML IV SCH ×2 (09:02→17:48)
[2023-02-12] MEDS: MIDODRINE 5 MG TAB PO SCH ×3 (09:02→16:36)
[2023-02-12 14:00] VITALS: BP 94/57
[2023-02-12 20:41] VITALS: BP 93/57
[2023-02-12] MEDS: LIDOCAINE 5% (LIDODERM) PATCH TOP SCH (20:46)
[2023-02-12] MEDS: FAMOTIDINE 20 MG TAB PO SCH (20:47)
[2023-02-12] MEDS: PRIMIDONE 50MG TAB PO SCH (20:48)
[2023-02-12] MEDS: AMITRIPTYLINE 25MG TABLET PO SCH (20:48)
[2023-02-13] MEDS ORDERED: PILL CUTTER 1 EACH XX PRN (04:15)
[2023-02-13] MEDS: KCL 20MEQ IN D5/0.45NS 1000ML 1,000 ML IV SCH ×2 (04:39→14:59)
[2023-02-13] MEDS ORDERED: LORazepam 0.5 MG TAB PO ONE (05:00)
[2023-02-13 06:00] VITALS: BP 78/43
[2023-02-13] MEDS: INSULIN LISPRO (NovoLOG) PER UNIT SC SCH ×4 (06:00→18:00)
[2023-02-13] MEDS: ENOXAPARIN 60MG/0.6ML SYRINGE (J1650 PER 10MG) SC SCH ×2 (06:06→18:27)
[2023-02-13 06:10] LABS: HEMATOCRIT 33.1 % (36.0-47.0); HEMOGLOBIN 10.6 g/dl (12.0-15.5); MEAN CORPUSCULAR HEMOGLOBIN 28.4 pg (27.0-33.0); MEAN CORPUSCULAR VOLUME 88.7 fl (80.0-96.0); PLATELET COUNT, AUTOMATED 152 10^3/uL (150-450); RED BLOOD COUNT 3.73 10^6/uL (4.00-5.40); WHITE BLOOD COUNT 3.4 10^3/uL (4.0-10.0)
[2023-02-13 06:43] LABS: BLOOD UREA NITROGEN < 5 MG/DL (9-23); CALCIUM LEVEL 8.4 MG/DL (8.5-10.1); CARBON DIOXIDE LEVEL 25 MMOL/L (20-31); CHLORIDE LEVEL 106 MMOL/L (98-107); CREATININE FOR GFR 0.52 MG/DL (0.55-1.30); GLOMERULAR FILTRATION RATE > 60.0 (>60); GLUCOSE, FASTING 101 MG/DL (60-100); POTASSIUM SERUM 4.7 MMOL/L (3.5-5.1); SODIUM LEVEL 137 MMOL/L (136-145)
[2023-02-13] MEDS: ADVAIR HFA 230/21MCG INHALER INH SCH ×2 (07:27→20:04)
[2023-02-13 07:55] VITALS: BP 90/50
[2023-02-13] MEDS: BISACODYL 10MG SUPP PR SCH ×2 (08:21→21:02)
[2023-02-13] MEDS: MIRALAX *UNIT DOSE* 17GM PACKET JT SCH ×3 (08:21→21:00)
[2023-02-13] MEDS: MIDODRINE 5 MG TAB PO SCH ×3 (08:21→16:19)
[2023-02-13] MEDS: CYANOCOBALAMIN 500 MCG TAB PO SCH (08:21)
[2023-02-13] MEDS: ASCORBIC ACID 500 MG TAB PO SCH (08:21)
[2023-02-13] MEDS: DRONABINOL 2.5MG CAP (MARINOL) PO SCH ×3 (08:50→21:04)
[2023-02-13] MEDS: FLEET ENEMA PR SCH ×2 (08:50→21:00)
[2023-02-13 09:00] VITALS: BP 87/49
[2023-02-13] MEDS ORDERED: NS 1,000 ML IV SCH (11:15)
[2023-02-13] MEDS ORDERED: VANCOMYCIN HCL 1,000 MG, VIAL MATE ADAPTER 1 EACH in NS 250 ML IV ONE (11:15)
[2023-02-13] MEDS ORDERED: diphenhydrAMINE 50MG/ML VIAL As Ordered ONE (11:15)
[2023-02-13] MEDS ORDERED: fentaNYL 100 MCG/2 ML INJECTION As Ordered ONE (11:16)
[2023-02-13] MEDS ORDERED: MIDAZOLAM INJ 2MG/2ML VIAL As Ordered ONE (11:16)
[2023-02-13] MEDS ORDERED: LIDOCAINE 1% MDV 20ML VIAL As Ordered ONE (11:16)
[2023-02-13] MEDS ORDERED: VANCOMYCIN 1000MG/20ML VIAL As Ordered ONE (11:18)
[2023-02-13] MEDS ORDERED: PROMETHAZINE 25MG/ML 1ML VIAL As Ordered ONE (12:02)
[2023-02-13 14:00] VITALS: BP 90/65
[2023-02-13 20:08] VITALS: BP 98/61
[2023-02-13] MEDS ORDERED: [UNRECOGNIZED DRUG - OTHER] IV SCH (21:00)
[2023-02-13] MEDS: LIDOCAINE 5% (LIDODERM) PATCH TOP SCH (21:00)
[2023-02-13] MEDS: KETOROLAC 30 MG/ML 1ML VIAL IV PRN (21:02)
[2023-02-13] MEDS: PRIMIDONE 50MG TAB PO SCH (21:03)
[2023-02-13] MEDS: FAMOTIDINE 20 MG TAB PO SCH (21:03)
[2023-02-13] MEDS: AMITRIPTYLINE 25MG TABLET PO SCH (21:03)
[2023-02-13] MEDS ORDERED: ACETAMINOPH W/CODEINE #3 TAB UD PO ONE (22:45)
[2023-02-14] MEDS: INSULIN LISPRO (NovoLOG) PER UNIT SC SCH ×3 (01:09→12:00)
[2023-02-14 06:23] LABS: HEMATOCRIT 32.3 % (36.0-47.0); HEMOGLOBIN 10.3 g/dl (12.0-15.5); MEAN CORPUSCULAR HEMOGLOBIN 28.1 pg (27.0-33.0); MEAN CORPUSCULAR HGB CONC 31.9 g/dl (32.0-36.5); MEAN CORPUSCULAR VOLUME 88.3 fl (80.0-96.0); PLATELET COUNT, AUTOMATED 162 10^3/uL (150-450); RED BLOOD COUNT 3.66 10^6/uL (4.00-5.40); WHITE BLOOD COUNT 4.7 10^3/uL (4.0-10.0)
[2023-02-14 06:35] VITALS: BP 86/44
[2023-02-14] MEDS: ENOXAPARIN 60MG/0.6ML SYRINGE (J1650 PER 10MG) SC SCH (06:44)
[2023-02-14 06:55] LABS: BLOOD UREA NITROGEN 8 MG/DL (9-23); CALCIUM LEVEL 8.4 MG/DL (8.5-10.1); CARBON DIOXIDE LEVEL 24 MMOL/L (20-31); CHLORIDE LEVEL 106 MMOL/L (98-107); CREATININE FOR GFR 0.49 MG/DL (0.55-1.30); GLOMERULAR FILTRATION RATE > 60.0 (>60); GLUCOSE, FASTING 132 MG/DL (60-100); POTASSIUM SERUM 4.5 MMOL/L (3.5-5.1); SODIUM LEVEL 135 MMOL/L (136-145)
[2023-02-14] MEDS: ADVAIR HFA 230/21MCG INHALER INH SCH (07:32)
[2023-02-14] MEDS: FLEET ENEMA PR SCH (09:00)
[2023-02-14] MEDS ORDERED: SODIUM CHLORIDE 0.9% INJ 10 ML SYR IV SCH (09:00)
[2023-02-14] MEDS: MIRALAX *UNIT DOSE* 17GM PACKET JT SCH (10:09)
[2023-02-14] MEDS: ASCORBIC ACID 500 MG TAB PO SCH (10:10)
[2023-02-14] MEDS: BISACODYL 10MG SUPP PR SCH (10:10)
[2023-02-14] MEDS: DRONABINOL 2.5MG CAP (MARINOL) PO SCH (10:10)
[2023-02-14] MEDS: CYANOCOBALAMIN 500 MCG TAB PO SCH (10:11)
[2023-02-14] MEDS: MIDODRINE 5 MG TAB PO SCH ×2 (10:11→13:17)
[2023-02-14] MEDS ORDERED: ELIQ5TAB PO (11:18)
[2023-02-14] MEDS: ONDANSETRON 4MG 2ML VIAL IV PRN (11:20)
[2023-02-14 13:00] VITALS: BP 92/64
[2023-02-14] MEDS ORDERED: SODIUM CHLORIDE 0.9% INJ 10 ML SYR IV PRN (13:00)
== END 2023-02-14 14:35 | disposition home or self-care (01) ==
LOC: M ED 14:13 → M ED INP 14:14 → ENRESERV 23:32 → M MSPAV 02-11 00:49
PROVIDERS: ADMIT Internal Medicine; ATTEND Family Medicine
DX: I82.622 Acute embolism and thrombosis of deep veins of left upper extremity (principal); T82.594A Other mechanical complication of infusion catheter, initial encounter; Q79.60 Ehlers-Danlos syndrome, unspecified; K31.84 Gastroparesis; Z93.1 Gastrostomy status; G90.A Postural orthostatic tachycardia syndrome [POTS]; E46 Unspecified protein-calorie malnutrition; Z88.0 Allergy status to penicillin; Z88.8 Allergy status to other drugs, medicaments and biological substances
CPT/HCPCS: 36415; 36566; 76937; 80048; 80053; 83735; 85027; 87071; 87631; 93971; 94640; 99284; C1750; C1751; C1769; C1894; J1200; J1650; J1815; J1885; J2250; J2405; J2550; J3010

== ENCOUNTER → 2023-02-20 | Outpatient (REF) | payer BC ==
[~2023-02-20] MED LIST changes: +ELIQ5TAB PO; +FAMO40TA3 PO; +HYDR-3363 PO; +MIDO5TA PO
[2023-02-20 15:12] LABS: HEMATOCRIT 34.3 % (36.0-47.0); HEMOGLOBIN 10.8 g/dl (12.0-15.5); MEAN CORPUSCULAR HEMOGLOBIN 28.2 pg (27.0-33.0); MEAN CORPUSCULAR HGB CONC 31.5 g/dl (32.0-36.5); MEAN CORPUSCULAR VOLUME 89.6 fl (80.0-96.0); PLATELET COUNT, AUTOMATED 214 10^3/uL (150-450); RED BLOOD COUNT 3.83 10^6/uL (4.00-5.40); WHITE BLOOD COUNT 4.6 10^3/uL (4.0-10.0)
[2023-02-20 19:23] LABS: ALBUMIN 3.6 G/DL (3.2-5.2); ALKALINE PHOSPHATASE 54 U/L (46-116); ALT/SGPT 45 U/L (7.0-40); AST/SGOT 26 U/L (<34); BILIRUBIN,DIRECT < 0.1 MG/DL (<0.4); BILIRUBIN,TOTAL 0.2 MG/DL (0.3-1.2); BLOOD UREA NITROGEN 13 MG/DL (9-23); CALCIUM LEVEL 8.5 MG/DL (8.5-10.1); CARBON DIOXIDE LEVEL 26 MMOL/L (20-31); CHLORIDE LEVEL 109 MMOL/L (98-107); CREATININE FOR GFR 0.52 MG/DL (0.55-1.30); GLOMERULAR FILTRATION RATE > 60.0 (>60); GLUCOSE, FASTING 73 MG/DL (60-100); POTASSIUM SERUM 4.4 MMOL/L (3.5-5.1); SODIUM LEVEL 139 MMOL/L (136-145); TOTAL PROTEIN 6.5 G/DL (5.7-8.2)
== END ==
LOC: M SHH 14:44
PROVIDERS: ATTEND Internal Medicine Gastroenterology
DX: K31.84 Gastroparesis (principal); R62.7 Adult failure to thrive

== ENCOUNTER → 2023-02-27 | Outpatient (REF) | payer BC ==
[~2023-02-27] MED LIST changes: +SUMA25TA3 PO
[2023-02-27 13:42] LABS: HEMATOCRIT 34.8 % (36.0-47.0); HEMOGLOBIN 10.9 g/dl (12.0-15.5); MEAN CORPUSCULAR HEMOGLOBIN 28.2 pg (27.0-33.0); MEAN CORPUSCULAR HGB CONC 31.3 g/dl (32.0-36.5); MEAN CORPUSCULAR VOLUME 89.9 fl (80.0-96.0); PLATELET COUNT, AUTOMATED 212 10^3/uL (150-450); RED BLOOD COUNT 3.87 10^6/uL (4.00-5.40); WHITE BLOOD COUNT 9.2 10^3/uL (4.0-10.0)
[2023-02-27 14:05] LABS: ALBUMIN 3.5 G/DL (3.2-5.2); ALKALINE PHOSPHATASE 53 U/L (46-116); ALT/SGPT 25 U/L (7.0-40); AST/SGOT 16 U/L (<34); BILIRUBIN,DIRECT < 0.1 MG/DL (<0.4); BILIRUBIN,TOTAL 0.2 MG/DL (0.3-1.2); BLOOD UREA NITROGEN 18 MG/DL (9-23); CALCIUM LEVEL 8.8 MG/DL (8.5-10.1); CARBON DIOXIDE LEVEL 26 MMOL/L (20-31); CHLORIDE LEVEL 105 MMOL/L (98-107); GLOMERULAR FILTRATION RATE > 60.0 (>60); GLUCOSE, FASTING 67 MG/DL (60-100); POTASSIUM SERUM 4.8 MMOL/L (3.5-5.1); SODIUM LEVEL 137 MMOL/L (136-145); TOTAL PROTEIN 6.5 G/DL (5.7-8.2)
== END ==
LOC: M SHH 13:06
PROVIDERS: ATTEND Internal Medicine Gastroenterology
DX: K31.84 Gastroparesis (principal); R62.7 Adult failure to thrive

== ENCOUNTER 2023-02-28 19:02 | Inpatient (IN) | payer BC ==
[~2023-02-28] VITALS: Ht 172.7 cm; Wt 49.9 kg
[~2023-02-28 19:02] MED LIST changes: -SUMA25TA3 PO
[2023-02-28] MEDS ORDERED: NS 1,000 ML IV ONE (20:10)
[2023-02-28] MEDS ORDERED: ACETAMINOPHEN TAB 650MG DOSE (2X325MG) PO ONE (20:10)
[2023-02-28] MEDS ORDERED: CEFEPIME HCL 2 GM in D5W MINI-BAG PLUS 50 ML IV ONE (20:15)
[2023-02-28 20:17] LABS: BASO % 0.3 % (0.0-1.0); EOS # 0.2 10^3/uL (0.0-0.5); HEMATOCRIT 32.6 % (36.0-47.0); HEMOGLOBIN 10.7 g/dl (12.0-15.5); LYMPH # 1.5 10^3/uL (1.5-5.0); LYMPH % 17.1 % (24.0-44.0); MEAN CORPUSCULAR HEMOGLOBIN 28.8 pg (27.0-33.0); MEAN CORPUSCULAR HGB CONC 32.8 g/dl (32.0-36.5); MEAN CORPUSCULAR VOLUME 87.9 fl (80.0-96.0); MONO # 0.9 10^3/uL (0.0-0.8); MONO % 10.1 % (2.0-8.0); PLATELET COUNT, AUTOMATED 161 10^3/uL (150-450); RED BLOOD COUNT 3.71 10^6/uL (4.00-5.40); WHITE BLOOD COUNT 8.6 10^3/uL (4.0-10.0)
[2023-02-28 20:52] LABS: RSV AMPLIFICATION NEGATIVE (NEGATIVE)
[2023-02-28 21:00] LABS: INR 1.03; PROTHROMBIN TIME 13.7 SECONDS (12.5-14.5)
[2023-02-28 21:34] LABS: ALBUMIN 3.7 G/DL (3.2-5.2); ALKALINE PHOSPHATASE 56 U/L (46-116); ALT/SGPT 23 U/L (7.0-40); AST/SGOT 17 U/L (<34); BILIRUBIN,DIRECT 0.1 MG/DL (<0.4); BILIRUBIN,TOTAL 0.4 MG/DL (0.3-1.2); BLOOD UREA NITROGEN 10 MG/DL (9-23); CALCIUM LEVEL 8.6 MG/DL (8.5-10.1); CARBON DIOXIDE LEVEL 26 MMOL/L (20-31); CHLORIDE LEVEL 103 MMOL/L (98-107); CREATININE FOR GFR 0.61 MG/DL (0.55-1.30); GLOMERULAR FILTRATION RATE > 60.0 (>60); GLUCOSE, FASTING 87 MG/DL (60-100); POTASSIUM SERUM 3.8 MMOL/L (3.5-5.1); SODIUM LEVEL 136 MMOL/L (136-145); TOTAL PROTEIN 6.9 G/DL (5.7-8.2)
[2023-02-28] MEDS ORDERED: ELIQ5TAB PO (21:54)
[2023-02-28] MEDS ORDERED: SUMA25TA3 PO (21:57)
[2023-02-28] MEDS ORDERED: HOME MED LIST COMPLETE! XX SCH (22:00)
[2023-02-28 23:03] LABS: AMORPHOUS SEDIMENT SMALL (NEGATIVE); APPEARANCE, URINE HAZY (CLEAR); BACTERIA, URINE AUTO 1+ (NEGATIVE); BILIRUBIN, URINE AUTO NEGATIVE (NEGATIVE); BLOOD, URINE BLOOD NEGATIVE (NEGATIVE); COLOR, URINE YELLOW (YELLOW); GLUCOSE, URINE (UA) AUTO NEGATIVE (NEGATIVE); KETONE, URINE AUTO TRACE mg/dL (NEGATIVE); LEUKOCYTE ESTERASE, URINE AUTO TRACE (NEGATIVE); MUCUS, URINE LARGE (NEGATIVE); NITRITE, URINE AUTO NEGATIVE (NEGATIVE); PROTEIN, URINE AUTO 1+ mg/dL (NEGATIVE); RBC, URINE AUTO 2 /HPF (0-3); SPECIFIC GRAVITY URINE AUTO 1.028 (1.002-1.035); SQUAMOUS EPITHELIAL CELL UR AU 7 /HPF (0-6); UROBILINOGEN, URINE AUTO 0.2 mg/dL (0.0-2.0); WBC, URINE AUTO 10 /HPF (0-3)
[2023-02-28] MEDS ORDERED: SODIUM CHLORIDE 0.9% 1000ML IV SCH (23:05)
[2023-02-28] MEDS ORDERED: VANCOMYCIN HCL 1,000 MG, VIAL MATE ADAPTER 1 EACH in D5W 250 ML IV ONE (23:30)
[2023-03-01] VITALS: BP 97/58
[2023-03-01] MEDS ORDERED: LEVALBUTEROL HFA 45MCG/ACT 15GM INHALER INH PRN (01:35)
[2023-03-01] MEDS: AMITRIPTYLINE 25MG TABLET PO SCH ×2 (01:35→20:28)
[2023-03-01] MEDS ORDERED: SUMAtriptan SUCCINATE 25 MG TAB PO PRN (01:35)
[2023-03-01] MEDS ORDERED: ONDANSETRON 4MG TAB PO PRN (01:35)
[2023-03-01] MEDS ORDERED: diphenhydrAMINE 50MG/ML VIAL IV ONE (03:05)
[2023-03-01 06:01] VITALS: BP 94/58
[2023-03-01 06:20] LABS: BLOOD UREA NITROGEN 8 MG/DL (9-23); CARBON DIOXIDE LEVEL 24 MMOL/L (20-31); CHLORIDE LEVEL 105 MMOL/L (98-107); CREATININE FOR GFR 0.52 MG/DL (0.55-1.30); GLOMERULAR FILTRATION RATE > 60.0 (>60); GLUCOSE, FASTING 82 MG/DL (60-100); POTASSIUM SERUM 3.7 MMOL/L (3.5-5.1); SODIUM LEVEL 136 MMOL/L (136-145)
[2023-03-01] MEDS: ADVAIR HFA 230/21MCG INHALER INH SCH ×2 (07:40→21:05)
[2023-03-01] MEDS ORDERED: NS 500 ML IV ONE (07:50)
[2023-03-01] MEDS: ACETAMINOPHEN TAB 650MG DOSE (2X325MG) PO PRN ×2 (07:52→18:52)
[2023-03-01] MEDS ORDERED: MIDODRINE 5 MG TAB PO SCH (08:00)
[2023-03-01] MEDS ORDERED: VANCOMYCIN HCL 750 MG, VIAL MATE ADAPTER 1 EACH in NS 250 ML IV SCH (08:00)
[2023-03-01 08:05] VITALS: BP 85/43
[2023-03-01] MEDS ORDERED: NS 1,000 ML IV ONE (08:10)
[2023-03-01] MEDS ORDERED: APIXABAN 5 MG TAB (ELIQUIS) PO SCH (09:00)
[2023-03-01] MEDS: ASCORBIC ACID 500 MG TAB PO SCH (09:14)
[2023-03-01] MEDS: CYANOCOBALAMIN 500 MCG TAB PO SCH (09:14)
[2023-03-01] MEDS: DRONABINOL 2.5MG CAP (MARINOL) PO SCH ×3 (09:14→20:27)
[2023-03-01] MEDS: VANCOMYCIN HCL 750 MG, VIAL MATE ADAPTER 1 EACH in NS 250 ML IV SCH ×2 (09:14→16:23)
[2023-03-01 09:18] VITALS: BP 98/50
[2023-03-01] MEDS ORDERED: HEPARIN SOD (PORCINE) 5000UNITS/ML 1ML VIAL/SYRINGE IV PRN (09:55)
[2023-03-01 10:11] LABS: MAGNESIUM LEVEL 1.5 MG/DL (1.8-2.4)
[2023-03-01 10:27] LABS: HEMATOCRIT 29.2 % (36.0-47.0); HEMOGLOBIN 9.5 g/dl (12.0-15.5); MEAN CORPUSCULAR HEMOGLOBIN 28.7 pg (27.0-33.0); MEAN CORPUSCULAR HGB CONC 32.5 g/dl (32.0-36.5); MEAN CORPUSCULAR VOLUME 88.2 fl (80.0-96.0); PLATELET COUNT, AUTOMATED 149 10^3/uL (150-450); RED BLOOD COUNT 3.31 10^6/uL (4.00-5.40); WHITE BLOOD COUNT 7.6 10^3/uL (4.0-10.0)
[2023-03-01] MEDS ORDERED: HEPARIN DRIP 25,000 UNITS in IV 1 EA IV SCH ×2 (11:00→21:00)
[2023-03-01] MEDS: CEFEPIME HCL 2 GM in D5W 50 ML IV SCH ×2 (11:52→20:28)
[2023-03-01 14:00] VITALS: BP 102/59
[2023-03-01] MEDS: MAG SULF 1GM/100ML (MAG RUN) 1 GM in IV 1 EA IV SCH ×3 (14:00→14:13)
[2023-03-01] MEDS: metroNIDAZOLE (FLAGYL) 500MG TABLET PO SCH ×2 (14:08→22:27)
[2023-03-01] MEDS: MIDODRINE 5 MG TAB PO SCH ×2 (14:09→16:30)
[2023-03-01] MEDS: D5W/LR 1,000 ML IV SCH ×2 (16:23→20:00)
[2023-03-01] MEDS ORDERED: MAG SULF 1GM/100ML (MAG RUN) 1 GM in IV 1 EA IV ONE (18:05)
[2023-03-01] MEDS: FAMOTIDINE 20 MG TAB PO SCH (20:27)
[2023-03-01 21:26] VITALS: BP 100/77
[2023-03-02] MEDS: VANCOMYCIN HCL 750 MG, VIAL MATE ADAPTER 1 EACH in NS 250 ML IV SCH ×3 (00:42→16:50)
[2023-03-02] MEDS: metroNIDAZOLE (FLAGYL) 500MG TABLET PO SCH (05:39)
[2023-03-02] MEDS: D5W/LR 1,000 ML IV SCH ×2 (05:40→20:00)
[2023-03-02 06:20] VITALS: BP 87/52
[2023-03-02 07:17] LABS: BASO % 0.3 % (0.0-1.0); EOS # 0.2 10^3/uL (0.0-0.5); EOS % 5.7 % (0.0-3.0); HEMATOCRIT 29.1 % (36.0-47.0); HEMOGLOBIN 9.3 g/dl (12.0-15.5); LYMPH % 26.1 % (24.0-44.0); MEAN CORPUSCULAR HEMOGLOBIN 28.5 pg (27.0-33.0); MEAN CORPUSCULAR VOLUME 89.3 fl (80.0-96.0); MONO # 0.4 10^3/uL (0.0-0.8); MONO % 10.9 % (2.0-8.0); NEUTROPHILS # 2.2 10^3/uL (1.5-8.5); NEUTROPHILS % 56.7 % (36.0-66.0); PLATELET COUNT, AUTOMATED 150 10^3/uL (150-450); RED BLOOD COUNT 3.26 10^6/uL (4.00-5.40); WHITE BLOOD COUNT 3.9 10^3/uL (4.0-10.0)
[2023-03-02 07:39] LABS: VANCOMYCIN LEVEL TROUGH 15.2 UG/ML (10.0-20.0)
[2023-03-02] MEDS: ACETAMINOPHEN TAB 650MG DOSE (2X325MG) PO PRN (07:56)
[2023-03-02 08:17] LABS: ALBUMIN 2.8 G/DL (3.2-5.2); ALKALINE PHOSPHATASE 47 U/L (46-116); ALT/SGPT 15 U/L (7.0-40); AST/SGOT 11 U/L (<34); BILIRUBIN,TOTAL 0.3 MG/DL (0.3-1.2); BLOOD UREA NITROGEN 5 MG/DL (9-23); CALCIUM LEVEL 8.2 MG/DL (8.5-10.1); CARBON DIOXIDE LEVEL 26 MMOL/L (20-31); CHLORIDE LEVEL 108 MMOL/L (98-107); CREATININE FOR GFR 0.48 MG/DL (0.55-1.30); GLOMERULAR FILTRATION RATE > 60.0 (>60); GLUCOSE, FASTING 104 MG/DL (60-100); SODIUM LEVEL 139 MMOL/L (136-145); TOTAL PROTEIN 5.5 G/DL (5.7-8.2)
[2023-03-02 09:01] VITALS: BP 82/50
[2023-03-02] MEDS: DRONABINOL 2.5MG CAP (MARINOL) PO SCH ×3 (09:18→21:00)
[2023-03-02] MEDS: CYANOCOBALAMIN 500 MCG TAB PO SCH (09:19)
[2023-03-02] MEDS: ASCORBIC ACID 500 MG TAB PO SCH (09:19)
[2023-03-02] MEDS: MIDODRINE 5 MG TAB PO SCH ×3 (09:19→16:50)
[2023-03-02] MEDS: APIXABAN 5 MG TAB (ELIQUIS) PO SCH ×2 (12:20→21:00)
[2023-03-02] MEDS: CEFEPIME HCL 2 GM in D5W 50 ML IV SCH ×2 (12:20→20:59)
[2023-03-02] MEDS: ADVAIR HFA 230/21MCG INHALER INH SCH ×2 (12:23→20:13)
[2023-03-02 14:00] VITALS: BP 95/58
[2023-03-02] MEDS: AMITRIPTYLINE 25MG TABLET PO SCH (21:00)
[2023-03-02] MEDS: FAMOTIDINE 20 MG TAB PO SCH (21:00)
[2023-03-02 22:00] VITALS: BP 104/70
[2023-03-03] MEDS: VANCOMYCIN HCL 750 MG, VIAL MATE ADAPTER 1 EACH in NS 250 ML IV SCH ×2 (00:26→09:09)
[2023-03-03] MEDS: D5W/LR 1,000 ML IV SCH ×2 (00:38→12:00)
[2023-03-03 06:00] VITALS: BP 92/58
[2023-03-03] MEDS: ADVAIR HFA 230/21MCG INHALER INH SCH ×2 (07:11→21:03)
[2023-03-03 07:39] VITALS: BP 100/62
[2023-03-03 08:04] LABS: VANCOMYCIN LEVEL TROUGH 15.5 UG/ML (10.0-20.0)
[2023-03-03 08:17] LABS: BLOOD UREA NITROGEN 5 MG/DL (9-23); CALCIUM LEVEL 8.7 MG/DL (8.5-10.1); CARBON DIOXIDE LEVEL 27 MMOL/L (20-31); CHLORIDE LEVEL 104 MMOL/L (98-107); CREATININE FOR GFR 0.46 MG/DL (0.55-1.30); GLOMERULAR FILTRATION RATE > 60.0 (>60); GLUCOSE, FASTING 104 MG/DL (60-100); MAGNESIUM LEVEL 1.9 MG/DL (1.8-2.4); PHOSPHORUS LEVEL 3.8 MG/DL (2.5-4.9); POTASSIUM SERUM 4.2 MMOL/L (3.5-5.1); SODIUM LEVEL 139 MMOL/L (136-145)
[2023-03-03] MEDS: DRONABINOL 2.5MG CAP (MARINOL) PO SCH ×3 (09:04→21:37)
[2023-03-03] MEDS: ASCORBIC ACID 500 MG TAB PO SCH (09:04)
[2023-03-03] MEDS: CYANOCOBALAMIN 500 MCG TAB PO SCH (09:06)
[2023-03-03] MEDS: APIXABAN 5 MG TAB (ELIQUIS) PO SCH ×2 (09:08→21:38)
[2023-03-03] MEDS: MIDODRINE 5 MG TAB PO SCH ×3 (09:18→16:45)
[2023-03-03] MEDS: ACETAMINOPHEN TAB 650MG DOSE (2X325MG) PO PRN (09:20)
[2023-03-03 10:31] LABS: BASO % 0.4 % (0.0-1.0); EOS # 0.1 10^3/uL (0.0-0.5); EOS % 2.9 % (0.0-3.0); HEMATOCRIT 29.8 % (36.0-47.0); HEMOGLOBIN 9.6 g/dl (12.0-15.5); LYMPH # 0.8 10^3/uL (1.5-5.0); LYMPH % 30.3 % (24.0-44.0); MEAN CORPUSCULAR HEMOGLOBIN 28.7 pg (27.0-33.0); MEAN CORPUSCULAR HGB CONC 32.2 g/dl (32.0-36.5); MONO # 0.3 10^3/uL (0.0-0.8); MONO % 10.5 % (2.0-8.0); NEUTROPHILS # 1.6 10^3/uL (1.5-8.5); NEUTROPHILS % 55.9 % (36.0-66.0); PLATELET COUNT, AUTOMATED 188 10^3/uL (150-450); RED BLOOD COUNT 3.35 10^6/uL (4.00-5.40); WHITE BLOOD COUNT 2.8 10^3/uL (4.0-10.0)
[2023-03-03 14:46] VITALS: BP 94/59
[2023-03-03] MEDS: ceFAZolin SOD 2 GM in IV 1 EA IV SCH (16:46)
[2023-03-03] MEDS: INSULIN LISPRO (NovoLOG) PER UNIT SC SCH (17:50)
[2023-03-03] MEDS: AMINO AC/ELECTROLYTE/DEX/CALC 1,000 ML IV SCH (17:50)
[2023-03-03] MEDS ORDERED: FAT EMULSION IV 250 ML IV ONE (18:00)
[2023-03-03] MEDS: AMITRIPTYLINE 25MG TABLET PO SCH (21:37)
[2023-03-03] MEDS: FAMOTIDINE 20 MG TAB PO SCH (21:37)
[2023-03-03 22:00] VITALS: BP 100/61
[2023-03-04] MEDS: ceFAZolin SOD 2 GM in IV 1 EA IV SCH ×4 (00:11→23:46)
[2023-03-04 06:00] VITALS: BP 93/55
[2023-03-04] MEDS: INSULIN LISPRO (NovoLOG) PER UNIT SC SCH ×3 (06:00→11:40)
[2023-03-04 06:13] VITALS: BP 98/48
[2023-03-04] MEDS: ADVAIR HFA 230/21MCG INHALER INH SCH ×2 (08:14→20:57)
[2023-03-04] MEDS: MIDODRINE 5 MG TAB PO SCH ×3 (10:25→16:47)
[2023-03-04] MEDS: DRONABINOL 2.5MG CAP (MARINOL) PO SCH ×3 (10:25→21:24)
[2023-03-04] MEDS: ASCORBIC ACID 500 MG TAB PO SCH (10:25)
[2023-03-04] MEDS: APIXABAN 5 MG TAB (ELIQUIS) PO SCH ×2 (10:26→21:24)
[2023-03-04] MEDS: CYANOCOBALAMIN 500 MCG TAB PO SCH (10:26)
[2023-03-04] MEDS: AMINO AC/ELECTROLYTE/DEX/CALC 1,000 ML IV SCH (10:27)
[2023-03-04 12:33] LABS: HEMATOCRIT 27.3 % (36.0-47.0); HEMOGLOBIN 8.6 g/dl (12.0-15.5); MEAN CORPUSCULAR HEMOGLOBIN 29.2 pg (27.0-33.0); MEAN CORPUSCULAR HGB CONC 31.5 g/dl (32.0-36.5); MEAN CORPUSCULAR VOLUME 92.5 fl (80.0-96.0); PLATELET COUNT, AUTOMATED 183 10^3/uL (150-450); RED BLOOD COUNT 2.95 10^6/uL (4.00-5.40); WHITE BLOOD COUNT 2.7 10^3/uL (4.0-10.0)
[2023-03-04 14:00] VITALS: BP 112/73
[2023-03-04 14:31] LABS: BLOOD UREA NITROGEN 6 MG/DL (9-23); CALCIUM LEVEL 8.6 MG/DL (8.5-10.1); CARBON DIOXIDE LEVEL 27 MMOL/L (20-31); CHLORIDE LEVEL 106 MMOL/L (98-107); CREATININE FOR GFR 0.48 MG/DL (0.55-1.30); GLOMERULAR FILTRATION RATE > 60.0 (>60); GLUCOSE, FASTING 88 MG/DL (60-100); MAGNESIUM LEVEL 1.9 MG/DL (1.8-2.4); PHOSPHORUS LEVEL 4.1 MG/DL (2.5-4.9); POTASSIUM SERUM 4.1 MMOL/L (3.5-5.1); SODIUM LEVEL 139 MMOL/L (136-145)
[2023-03-04 16:05] LABS: IRON (FE) 40 UG/DL (50-170); PERCENT SATURATION 12.7 % (13.2-45.0); TOTAL IRON BINDING CAPACITY 314 UG/DL (250-425)
[2023-03-04 16:07] LABS: FERRITIN 101.4 NG/ML (7.3-270.7); FOLATE 11.58 NG/ML (>5.4); THYROID STIMULATING HORMONE 2.299 uIU/ML (0.55-4.78)
[2023-03-04 16:08] LABS: VITAMIN B12 LEVEL 1154 PG/ML (211-911)
[2023-03-04] MEDS: MIRALAX *UNIT DOSE* 17GM PACKET PO SCH (16:46)
[2023-03-04] MEDS ORDERED: FAT EMULSION IV 250 ML IV ONE (18:00)
[2023-03-04] MEDS: FAMOTIDINE 20 MG TAB PO SCH (21:24)
[2023-03-04] MEDS: AMITRIPTYLINE 25MG TABLET PO SCH (21:24)
[2023-03-04 22:00] VITALS: BP 100/59
[2023-03-05] MEDS: AMINO AC/ELECTROLYTE/DEX/CALC 1,000 ML IV SCH ×2 (03:18→21:13)
[2023-03-05 06:00] VITALS: BP 95/56
[2023-03-05 06:55] LABS: HEMATOCRIT 31.4 % (36.0-47.0); HEMOGLOBIN 10.1 g/dl (12.0-15.5); MEAN CORPUSCULAR HEMOGLOBIN 28.5 pg (27.0-33.0); MEAN CORPUSCULAR HGB CONC 32.2 g/dl (32.0-36.5); MEAN CORPUSCULAR VOLUME 88.5 fl (80.0-96.0); PLATELET COUNT, AUTOMATED 249 10^3/uL (150-450); RED BLOOD COUNT 3.55 10^6/uL (4.00-5.40); WHITE BLOOD COUNT 3.2 10^3/uL (4.0-10.0)
[2023-03-05] MEDS: ADVAIR HFA 230/21MCG INHALER INH SCH ×2 (07:13→20:13)
[2023-03-05 07:19] LABS: BLOOD UREA NITROGEN 8 MG/DL (9-23); CALCIUM LEVEL 9.2 MG/DL (8.5-10.1); CARBON DIOXIDE LEVEL 28 MMOL/L (20-31); CHLORIDE LEVEL 103 MMOL/L (98-107); CREATININE FOR GFR 0.48 MG/DL (0.55-1.30); GLOMERULAR FILTRATION RATE > 60.0 (>60); GLUCOSE, FASTING 87 MG/DL (60-100); PHOSPHORUS LEVEL 4.5 MG/DL (2.5-4.9); POTASSIUM SERUM 4.3 MMOL/L (3.5-5.1); SODIUM LEVEL 137 MMOL/L (136-145)
[2023-03-05] MEDS: CYANOCOBALAMIN 500 MCG TAB PO SCH (10:02)
[2023-03-05] MEDS: APIXABAN 5 MG TAB (ELIQUIS) PO SCH (10:02)
[2023-03-05] MEDS: MIDODRINE 5 MG TAB PO SCH ×3 (10:03→17:38)
[2023-03-05] MEDS: ceFAZolin SOD 2 GM in IV 1 EA IV SCH ×3 (10:03→23:46)
[2023-03-05] MEDS: DRONABINOL 2.5MG CAP (MARINOL) PO SCH ×3 (10:03→21:12)
[2023-03-05] MEDS: MIRALAX *UNIT DOSE* 17GM PACKET PO SCH (10:03)
[2023-03-05] MEDS: ASCORBIC ACID 500 MG TAB PO SCH (10:03)
[2023-03-05 14:00] VITALS: BP 94/56
[2023-03-05] MEDS ORDERED: FAT EMULSION IV 250 ML IV ONE (18:00)
[2023-03-05] MEDS: AMITRIPTYLINE 25MG TABLET PO SCH (21:12)
[2023-03-05] MEDS: FAMOTIDINE 20 MG TAB PO SCH (21:12)
[2023-03-05 22:00] VITALS: BP 98/72
[2023-03-06 05:25] VITALS: BP 90/56
[2023-03-06 06:37] LABS: HEMATOCRIT 31.9 % (36.0-47.0); HEMOGLOBIN 10.3 g/dl (12.0-15.5); MEAN CORPUSCULAR HEMOGLOBIN 28.7 pg (27.0-33.0); MEAN CORPUSCULAR HGB CONC 32.3 g/dl (32.0-36.5); MEAN CORPUSCULAR VOLUME 88.9 fl (80.0-96.0); PLATELET COUNT, AUTOMATED 266 10^3/uL (150-450); RED BLOOD COUNT 3.59 10^6/uL (4.00-5.40); WHITE BLOOD COUNT 3.5 10^3/uL (4.0-10.0)
[2023-03-06 07:06] LABS: BLOOD UREA NITROGEN 11 MG/DL (9-23); CALCIUM LEVEL 9.2 MG/DL (8.5-10.1); CARBON DIOXIDE LEVEL 26 MMOL/L (20-31); CHLORIDE LEVEL 103 MMOL/L (98-107); CREATININE FOR GFR 0.41 MG/DL (0.55-1.30); GLOMERULAR FILTRATION RATE > 60.0 (>60); GLUCOSE, FASTING 88 MG/DL (60-100); PHOSPHORUS LEVEL 4.2 MG/DL (2.5-4.9); POTASSIUM SERUM 4.3 MMOL/L (3.5-5.1); SODIUM LEVEL 137 MMOL/L (136-145)
[2023-03-06] MEDS: ADVAIR HFA 230/21MCG INHALER INH SCH ×2 (07:08→19:36)
[2023-03-06] MEDS: MIDODRINE 5 MG TAB PO SCH ×3 (08:21→15:22)
[2023-03-06] MEDS: DRONABINOL 2.5MG CAP (MARINOL) PO SCH ×3 (08:21→20:55)
[2023-03-06] MEDS: FERROUS SULFATE 325MG TAB PO SCH (08:22)
[2023-03-06] MEDS: ceFAZolin SOD 2 GM in IV 1 EA IV SCH ×3 (08:22→23:52)
[2023-03-06] MEDS: ASCORBIC ACID 500 MG TAB PO SCH (08:22)
[2023-03-06] MEDS: MIRALAX *UNIT DOSE* 17GM PACKET PO SCH (08:22)
[2023-03-06] MEDS ORDERED: BISACODYL 10MG SUPP PR PRN (10:10)
[2023-03-06] MEDS: AMINO AC/ELECTROLYTE/DEX/CALC 1,000 ML IV SCH (12:42)
[2023-03-06 14:00] VITALS: BP 102/70
[2023-03-06] MEDS: INSULIN LISPRO (NovoLOG) PER UNIT SC SCH ×2 (17:25→23:52)
[2023-03-06] MEDS ORDERED: FAT EMULSION IV 250 ML IV ONE (18:00)
[2023-03-06] MEDS: FAMOTIDINE 20 MG TAB PO SCH (20:55)
[2023-03-06] MEDS: AMITRIPTYLINE 25MG TABLET PO SCH (20:55)
[2023-03-06] MEDS ORDERED: ENOXAPARIN 30MG/0.3ML SYRINGE (J1650 PER 10MG) SC SCH (21:00)
[2023-03-06 22:00] VITALS: BP 102/68
[2023-03-07 04:55] VITALS: BP 100/59
[2023-03-07] MEDS: INSULIN LISPRO (NovoLOG) PER UNIT SC SCH ×3 (05:28→18:00)
[2023-03-07] MEDS: AMINO AC/ELECTROLYTE/DEX/CALC 1,000 ML IV SCH (05:32)
[2023-03-07 06:32] LABS: HEMATOCRIT 35.3 % (36.0-47.0); HEMOGLOBIN 11.3 g/dl (12.0-15.5); MEAN CORPUSCULAR HEMOGLOBIN 28.5 pg (27.0-33.0); MEAN CORPUSCULAR VOLUME 88.9 fl (80.0-96.0); PLATELET COUNT, AUTOMATED 340 10^3/uL (150-450); RED BLOOD COUNT 3.97 10^6/uL (4.00-5.40)
[2023-03-07 07:00] LABS: BLOOD UREA NITROGEN 11 MG/DL (9-23); CALCIUM LEVEL 9.5 MG/DL (8.5-10.1); CARBON DIOXIDE LEVEL 26 MMOL/L (20-31); CHLORIDE LEVEL 102 MMOL/L (98-107); CREATININE FOR GFR 0.46 MG/DL (0.55-1.30); GLOMERULAR FILTRATION RATE > 60.0 (>60); GLUCOSE, FASTING 81 MG/DL (60-100); MAGNESIUM LEVEL 2.1 MG/DL (1.8-2.4); PHOSPHORUS LEVEL 4.4 MG/DL (2.5-4.9); POTASSIUM SERUM 4.2 MMOL/L (3.5-5.1); SODIUM LEVEL 137 MMOL/L (136-145)
[2023-03-07] MEDS ORDERED: propofoL 200 MG/20 ML VIAL As Ordered ONE (07:24)
[2023-03-07] MEDS ORDERED: fentaNYL 100 MCG/2 ML INJECTION As Ordered ONE (07:24)
[2023-03-07] MEDS ORDERED: MIDAZOLAM INJ 2MG/2ML VIAL As Ordered ONE (07:24)
[2023-03-07] MEDS: ceFAZolin SOD 2 GM in IV 1 EA IV SCH (07:43)
[2023-03-07] MEDS: MIDODRINE 5 MG TAB PO SCH ×3 (08:00→16:45)
[2023-03-07] MEDS: ADVAIR HFA 230/21MCG INHALER INH SCH ×2 (08:00→20:58)
[2023-03-07] MEDS ORDERED: APIXABAN 5 MG TAB (ELIQUIS) PO SCH (09:00)
[2023-03-07] MEDS: MIRALAX *UNIT DOSE* 17GM PACKET PO SCH (09:00)
[2023-03-07] MEDS ORDERED: fentaNYL 100 MCG/2 ML INJECTION IV PRN (09:15)
[2023-03-07] MEDS ORDERED: ONDANSETRON 4MG 2ML VIAL IV PRN (09:15)
[2023-03-07 10:00] VITALS: BP 99/66
[2023-03-07] MEDS: ASCORBIC ACID 500 MG TAB PO SCH (10:28)
[2023-03-07] MEDS: FERROUS SULFATE 325MG TAB PO SCH (10:28)
[2023-03-07] MEDS: DRONABINOL 2.5MG CAP (MARINOL) PO SCH ×3 (10:28→20:36)
[2023-03-07 11:00] VITALS: BP 109/69
[2023-03-07] MEDS ORDERED: diphenhydrAMINE 50MG/ML VIAL IV ONE (12:20)
[2023-03-07 14:00] VITALS: BP 109/55
[2023-03-07] MEDS ORDERED: cefTRIAXone SOD 2 GM in D5W MINI-BAG PLUS 50 ML IV SCH (16:00)
[2023-03-07] MEDS ORDERED: FAT EMULSION IV 250 ML IV ONE (18:00)
[2023-03-07] MEDS ORDERED: AMINO AC/ELECTROLYTE/DEX/CALC 2,000 ML IV SCH (18:00)
[2023-03-07] MEDS: SODIUM CHLORIDE 0.9% INJ 10 ML SYR IV PRN (18:36)
[2023-03-07] MEDS: FAMOTIDINE 20 MG TAB PO SCH (20:36)
[2023-03-07] MEDS: APIXABAN 5 MG TAB (ELIQUIS) PO SCH (20:36)
[2023-03-07] MEDS: AMITRIPTYLINE 25MG TABLET PO SCH (20:36)
[2023-03-07 22:00] VITALS: BP 101/63
[2023-03-08 05:46] VITALS: BP 95/52
[2023-03-08] MEDS: INSULIN LISPRO (NovoLOG) PER UNIT SC SCH ×3 (06:00→11:41)
[2023-03-08] MEDS: ACETAMINOPHEN TAB 650MG DOSE (2X325MG) PO PRN (06:05)
[2023-03-08 06:36] LABS: HEMATOCRIT 32.1 % (36.0-47.0); HEMOGLOBIN 10.3 g/dl (12.0-15.5); MEAN CORPUSCULAR HEMOGLOBIN 28.7 pg (27.0-33.0); MEAN CORPUSCULAR HGB CONC 32.1 g/dl (32.0-36.5); MEAN CORPUSCULAR VOLUME 89.4 fl (80.0-96.0); PLATELET COUNT, AUTOMATED 285 10^3/uL (150-450); RED BLOOD COUNT 3.59 10^6/uL (4.00-5.40); WHITE BLOOD COUNT 4.2 10^3/uL (4.0-10.0)
[2023-03-08 06:58] LABS: BLOOD UREA NITROGEN 14 MG/DL (9-23); CARBON DIOXIDE LEVEL 27 MMOL/L (20-31); CHLORIDE LEVEL 103 MMOL/L (98-107); CREATININE FOR GFR 0.42 MG/DL (0.55-1.30); GLOMERULAR FILTRATION RATE > 60.0 (>60); GLUCOSE, FASTING 98 MG/DL (60-100); MAGNESIUM LEVEL 1.9 MG/DL (1.8-2.4); PHOSPHORUS LEVEL 3.9 MG/DL (2.5-4.9); POTASSIUM SERUM 4.4 MMOL/L (3.5-5.1); SODIUM LEVEL 137 MMOL/L (136-145)
[2023-03-08] MEDS: ADVAIR HFA 230/21MCG INHALER INH SCH (08:15)
[2023-03-08] MEDS: FERROUS SULFATE 325MG TAB PO SCH (08:30)
[2023-03-08] MEDS: APIXABAN 5 MG TAB (ELIQUIS) PO SCH (08:30)
[2023-03-08] MEDS: MIDODRINE 5 MG TAB PO SCH ×2 (08:30→11:17)
[2023-03-08] MEDS: DRONABINOL 2.5MG CAP (MARINOL) PO SCH (08:30)
[2023-03-08] MEDS: ASCORBIC ACID 500 MG TAB PO SCH (08:30)
[2023-03-08] MEDS: SODIUM CHLORIDE 0.9% INJ 10 ML SYR IV SCH ×2 (08:32→11:19)
[2023-03-08] MEDS: MIRALAX *UNIT DOSE* 17GM PACKET PO SCH (08:44)
[2023-03-08] MEDS ORDERED: cefTRIAXone SOD 2 GM in D5W MINI-BAG PLUS 50 ML IV SCH (10:00)
[2023-03-08] MEDS ORDERED: FERR1TAB8 PO (10:51)
[2023-03-08] MEDS ORDERED: MIDO5TA PO (10:51)
[2023-03-08] MEDS: SODIUM CHLORIDE 0.9% INJ 10 ML SYR IV PRN (11:18)
== END 2023-03-08 12:15 | disposition home or self-care (01) | DRG 721 ==
LOC: M ED 19:02 → M ED INP 22:19 → M MS5PR 23:59
PROVIDERS: ADMIT Internal Medicine; ATTEND Internal Medicine
PROC: 02PYX3Z Removal of Infusion Device from Great Vessel, External Approach (ICD-10-PCS; principal; 2023-03-02 08:00)
PROC: 0JH63XZ Insertion of Tunneled Vascular Access Device into Chest Subcutaneous Tissue and Fascia, Percutaneous Approach (ICD-10-PCS; 2023-03-07)
DX: T80.219A Unspecified infection due to central venous catheter, initial encounter (principal); E43 Unspecified severe protein-calorie malnutrition; A41.9 Sepsis, unspecified organism; E87.20 Acidosis, unspecified; I95.9 Hypotension, unspecified; Q79.60 Ehlers-Danlos syndrome, unspecified; K31.84 Gastroparesis; G90.A Postural orthostatic tachycardia syndrome [POTS]; J45.909 Unspecified asthma, uncomplicated; F41.9 Anxiety disorder, unspecified; B95.61 Methicillin susceptible Staphylococcus aureus infection as the cause of diseases classified elsewhere; D64.9 Anemia, unspecified; E53.8 Deficiency of other specified B group vitamins; Z68.1 Body mass index [BMI] 19.9 or less, adult; Z79.01 Long term (current) use of anticoagulants; Z79.899 Other long term (current) drug therapy; Z86.718 Personal history of other venous thrombosis and embolism; Z88.1 Allergy status to other antibiotic agents; Z88.8 Allergy status to other drugs, medicaments and biological substances; Z20.822 Contact with and (suspected) exposure to COVID-19

== ENCOUNTER → 2023-03-13 | Outpatient (REF) | payer BC ==
[~2023-03-13] MED LIST changes: +FERR1TAB8 PO; +SUMA25TA3 PO
[2023-03-13 13:45] LABS: HEMATOCRIT 33.5 % (36.0-47.0); HEMOGLOBIN 10.9 g/dl (12.0-15.5); MEAN CORPUSCULAR HEMOGLOBIN 28.9 pg (27.0-33.0); MEAN CORPUSCULAR HGB CONC 32.5 g/dl (32.0-36.5); MEAN CORPUSCULAR VOLUME 88.9 fl (80.0-96.0); PLATELET COUNT, AUTOMATED 283 10^3/uL (150-450); RED BLOOD COUNT 3.77 10^6/uL (4.00-5.40); WHITE BLOOD COUNT 4.6 10^3/uL (4.0-10.0)
[2023-03-13 14:03] LABS: ALBUMIN 3.8 G/DL (3.2-5.2); ALKALINE PHOSPHATASE 56 U/L (46-116); ALT/SGPT 18 U/L (7.0-40); AST/SGOT 19 U/L (<34); BILIRUBIN,DIRECT 0.1 MG/DL (<0.4); BILIRUBIN,TOTAL 0.3 MG/DL (0.3-1.2); BLOOD UREA NITROGEN 18 MG/DL (9-23); CALCIUM LEVEL 8.9 MG/DL (8.5-10.1); CARBON DIOXIDE LEVEL 31 MMOL/L (20-31); CHLORIDE LEVEL 104 MMOL/L (98-107); CREATININE FOR GFR 0.51 MG/DL (0.55-1.30); GLOMERULAR FILTRATION RATE > 60.0 (>60); GLUCOSE, FASTING 64 MG/DL (60-100); SODIUM LEVEL 141 MMOL/L (136-145); TOTAL PROTEIN 6.8 G/DL (5.7-8.2)
== END ==
LOC: M SHH 13:05
PROVIDERS: ATTEND Internal Medicine Gastroenterology
DX: K31.84 Gastroparesis (principal); R62.7 Adult failure to thrive; D64.9 Anemia, unspecified

== ENCOUNTER → 2023-03-20 | Outpatient (REF) | payer BC ==
[2023-03-20 12:03] LABS: HEMATOCRIT 31.7 % (36.0-47.0); HEMOGLOBIN 10.6 g/dl (12.0-15.5); MEAN CORPUSCULAR HEMOGLOBIN 29.4 pg (27.0-33.0); MEAN CORPUSCULAR HGB CONC 33.4 g/dl (32.0-36.5); MEAN CORPUSCULAR VOLUME 87.8 fl (80.0-96.0); PLATELET COUNT, AUTOMATED 204 10^3/uL (150-450); RED BLOOD COUNT 3.61 10^6/uL (4.00-5.40)
[2023-03-20 12:32] LABS: ALBUMIN 3.5 G/DL (3.2-5.2); ALKALINE PHOSPHATASE 52 U/L (46-116); ALT/SGPT 19 U/L (7.0-40); AST/SGOT 21 U/L (<34); BILIRUBIN,DIRECT < 0.1 MG/DL (<0.4); BILIRUBIN,TOTAL 0.2 MG/DL (0.3-1.2); BLOOD UREA NITROGEN 9 MG/DL (9-23); CALCIUM LEVEL 8.6 MG/DL (8.5-10.1); CARBON DIOXIDE LEVEL 32 MMOL/L (20-31); CHLORIDE LEVEL 104 MMOL/L (98-107); CREATININE FOR GFR 0.64 MG/DL (0.55-1.30); GLOMERULAR FILTRATION RATE > 60.0 (>60); GLUCOSE, FASTING 82 MG/DL (60-100); POTASSIUM SERUM 3.5 MMOL/L (3.5-5.1); SODIUM LEVEL 140 MMOL/L (136-145); TOTAL PROTEIN 6.4 G/DL (5.7-8.2)
== END ==
LOC: M SHH 11:49
PROVIDERS: ATTEND Internal Medicine Gastroenterology
DX: K31.84 Gastroparesis (principal); R62.7 Adult failure to thrive

== ENCOUNTER → 2023-03-27 | Outpatient (REF) | payer BC ==
[2023-03-27 15:23] LABS: HEMATOCRIT 35.3 % (36.0-47.0); HEMOGLOBIN 11.5 g/dl (12.0-15.5); MEAN CORPUSCULAR HEMOGLOBIN 28.8 pg (27.0-33.0); MEAN CORPUSCULAR HGB CONC 32.6 g/dl (32.0-36.5); MEAN CORPUSCULAR VOLUME 88.5 fl (80.0-96.0); PLATELET COUNT, AUTOMATED 185 10^3/uL (150-450); RED BLOOD COUNT 3.99 10^6/uL (4.00-5.40); WHITE BLOOD COUNT 4.6 10^3/uL (4.0-10.0)
[2023-03-27 15:53] LABS: ALBUMIN 4.1 G/DL (3.2-5.2); ALKALINE PHOSPHATASE 58 U/L (46-116); ALT/SGPT 25 U/L (7.0-40); AST/SGOT 22 U/L (<34); BILIRUBIN,DIRECT 0.1 MG/DL (<0.4); BILIRUBIN,TOTAL 0.3 MG/DL (0.3-1.2); BLOOD UREA NITROGEN 12 MG/DL (9-23); CALCIUM LEVEL 9.2 MG/DL (8.5-10.1); CARBON DIOXIDE LEVEL 28 MMOL/L (20-31); CHLORIDE LEVEL 104 MMOL/L (98-107); CREATININE FOR GFR 0.59 MG/DL (0.55-1.30); GLOMERULAR FILTRATION RATE > 60.0 (>60); GLUCOSE, FASTING 66 MG/DL (60-100); POTASSIUM SERUM 3.6 MMOL/L (3.5-5.1); SODIUM LEVEL 139 MMOL/L (136-145); TOTAL PROTEIN 7.2 G/DL (5.7-8.2)
== END ==
LOC: M SHH 15:02
PROVIDERS: ATTEND Internal Medicine Gastroenterology
DX: K31.84 Gastroparesis (principal); R62.7 Adult failure to thrive

== ENCOUNTER → 2023-04-03 | Outpatient (REF) | payer BC ==
[2023-04-03 12:15] LABS: HEMATOCRIT 34.5 % (36.0-47.0); HEMOGLOBIN 11.1 g/dl (12.0-15.5); MEAN CORPUSCULAR HEMOGLOBIN 28.5 pg (27.0-33.0); MEAN CORPUSCULAR HGB CONC 32.2 g/dl (32.0-36.5); MEAN CORPUSCULAR VOLUME 88.5 fl (80.0-96.0); PLATELET COUNT, AUTOMATED 210 10^3/uL (150-450); WHITE BLOOD COUNT 4.3 10^3/uL (4.0-10.0)
[2023-04-03 12:42] LABS: ALBUMIN 3.9 G/DL (3.2-5.2); ALKALINE PHOSPHATASE 60 U/L (46-116); ALT/SGPT 21 U/L (7.0-40); AST/SGOT 22 U/L (<34); BILIRUBIN,DIRECT 0.1 MG/DL (<0.4); BILIRUBIN,TOTAL 0.3 MG/DL (0.3-1.2); BLOOD UREA NITROGEN 12 MG/DL (9-23); CARBON DIOXIDE LEVEL 26 MMOL/L (20-31); CHLORIDE LEVEL 106 MMOL/L (98-107); CREATININE FOR GFR 0.58 MG/DL (0.55-1.30); GLOMERULAR FILTRATION RATE > 60.0 (>60); GLUCOSE, FASTING 108 MG/DL (60-100); POTASSIUM SERUM 3.8 MMOL/L (3.5-5.1); SODIUM LEVEL 139 MMOL/L (136-145); TOTAL PROTEIN 6.7 G/DL (5.7-8.2)
== END ==
LOC: M LAB REF 11:59
PROVIDERS: ATTEND Internal Medicine Gastroenterology
DX: K31.84 Gastroparesis (principal); R62.7 Adult failure to thrive

== ENCOUNTER → 2023-04-10 | Outpatient (REF) | payer BC ==
[2023-04-10 14:59] LABS: HEMATOCRIT 33.3 % (36.0-47.0); HEMOGLOBIN 10.8 g/dl (12.0-15.5); MEAN CORPUSCULAR HEMOGLOBIN 28.9 pg (27.0-33.0); MEAN CORPUSCULAR HGB CONC 32.4 g/dl (32.0-36.5); PLATELET COUNT, AUTOMATED 218 10^3/uL (150-450); RED BLOOD COUNT 3.74 10^6/uL (4.00-5.40)
[2023-04-10 15:22] LABS: ALBUMIN 3.7 G/DL (3.2-5.2); ALKALINE PHOSPHATASE 56 U/L (46-116); ALT/SGPT 24 U/L (7.0-40); AST/SGOT 21 U/L (<34); BILIRUBIN,DIRECT < 0.1 MG/DL (<0.4); BILIRUBIN,TOTAL 0.3 MG/DL (0.3-1.2); BLOOD UREA NITROGEN 11 MG/DL (9-23); CALCIUM LEVEL 8.8 MG/DL (8.5-10.1); CARBON DIOXIDE LEVEL 26 MMOL/L (20-31); CHLORIDE LEVEL 105 MMOL/L (98-107); CREATININE FOR GFR 0.53 MG/DL (0.55-1.30); GLOMERULAR FILTRATION RATE > 60.0 (>60); GLUCOSE, FASTING 77 MG/DL (60-100); SODIUM LEVEL 138 MMOL/L (136-145); TOTAL PROTEIN 6.6 G/DL (5.7-8.2)
== END ==
LOC: M SHH 14:46
PROVIDERS: ATTEND Internal Medicine Gastroenterology
DX: K31.84 Gastroparesis (principal); R62.7 Adult failure to thrive

== ENCOUNTER 2023-04-12 17:17 | Inpatient (IN) | payer BC ==
[~2023-04-12] VITALS: Ht 172.7 cm; Wt 46.5 kg
[2023-04-12 18:55] VITALS: BP 111/73
[2023-04-12 19:30] VITALS: BP 108/77
[2023-04-12 19:47] LABS: HEMOGLOBIN 11.7 g/dl (12.0-15.5); MEAN CORPUSCULAR HGB CONC 33.4 g/dl (32.0-36.5); MEAN CORPUSCULAR VOLUME 86.6 fl (80.0-96.0); PLATELET COUNT, AUTOMATED 242 10^3/uL (150-450); RED BLOOD COUNT 4.04 10^6/uL (4.00-5.40); WHITE BLOOD COUNT 5.2 10^3/uL (4.0-10.0)
[2023-04-12 20:14] LABS: BLOOD UREA NITROGEN 11 MG/DL (9-23); CALCIUM LEVEL 8.9 MG/DL (8.5-10.1); CARBON DIOXIDE LEVEL 28 MMOL/L (20-31); CHLORIDE LEVEL 106 MMOL/L (98-107); CREATININE FOR GFR 0.61 MG/DL (0.55-1.30); GLOMERULAR FILTRATION RATE > 60.0 (>60); GLUCOSE, FASTING 65 MG/DL (60-100); POTASSIUM SERUM 3.4 MMOL/L (3.5-5.1); SODIUM LEVEL 138 MMOL/L (136-145)
[2023-04-12] MEDS ORDERED: [UNRECOGNIZED DRUG - OTHER] XX SCH (23:00)
[2023-04-12] MEDS ORDERED: TPN XX SCH (23:00)
[2023-04-12] MEDS ORDERED: FERR1TAB8 PO (23:21)
[2023-04-12] MEDS ORDERED: FLON1SPR (23:21)
[2023-04-12] MEDS ORDERED: MIDO5TA PO (23:21)
[2023-04-12] MEDS ORDERED: HOME MED LIST COMPLETE! XX SCH (23:25)
[2023-04-12] MEDS ORDERED: LEVALBUTEROL HFA 45MCG/ACT 15GM INHALER INH PRN (23:55)
[2023-04-12] MEDS ORDERED: AMITRIPTYLINE 25MG TABLET PO ONE (23:55)
[2023-04-12] MEDS ORDERED: FAMOTIDINE 20 MG TAB PO ONE (23:55)
[2023-04-12] MEDS ORDERED: MIDODRINE 5 MG TAB PO ONE (23:55)
[2023-04-12] MEDS ORDERED: ONDANSETRON 4MG TAB PO PRN (23:55)
[2023-04-12] MEDS ORDERED: APIXABAN 5 MG TAB (ELIQUIS) PO ONE (23:55)
[2023-04-13 01:04] VITALS: BP 86/52
[2023-04-13] MEDS ORDERED: SODIUM CHLORIDE 0.9% INJ 10 ML SYR IV PRN (02:05)
[2023-04-13 02:06] VITALS: BP 100/62
[2023-04-13 05:17] VITALS: BP 91/51
[2023-04-13 05:26] VITALS: BP 92/60
[2023-04-13 06:51] LABS: HEMATOCRIT 31.6 % (36.0-47.0); HEMOGLOBIN 10.6 g/dl (12.0-15.5); MEAN CORPUSCULAR HEMOGLOBIN 29.4 pg (27.0-33.0); MEAN CORPUSCULAR HGB CONC 33.5 g/dl (32.0-36.5); MEAN CORPUSCULAR VOLUME 87.5 fl (80.0-96.0); PLATELET COUNT, AUTOMATED 228 10^3/uL (150-450); RED BLOOD COUNT 3.61 10^6/uL (4.00-5.40); WHITE BLOOD COUNT 4.9 10^3/uL (4.0-10.0)
[2023-04-13 07:14] LABS: BLOOD UREA NITROGEN 13 MG/DL (9-23); CALCIUM LEVEL 8.4 MG/DL (8.5-10.1); CARBON DIOXIDE LEVEL 26 MMOL/L (20-31); CHLORIDE LEVEL 105 MMOL/L (98-107); CREATININE FOR GFR 0.54 MG/DL (0.55-1.30); GLOMERULAR FILTRATION RATE > 60.0 (>60); GLUCOSE, FASTING 122 MG/DL (60-100); POTASSIUM SERUM 3.9 MMOL/L (3.5-5.1); SODIUM LEVEL 138 MMOL/L (136-145)
[2023-04-13] MEDS: ADVAIR HFA 230/21MCG INHALER INH SCH ×2 (07:14→19:14)
[2023-04-13] MEDS: APIXABAN 5 MG TAB (ELIQUIS) PO SCH ×2 (08:36→22:47)
[2023-04-13] MEDS: MIDODRINE 5 MG TAB PO SCH ×3 (08:36→22:46)
[2023-04-13] MEDS: CYANOCOBALAMIN 500 MCG TAB PO SCH (08:36)
[2023-04-13] MEDS: FERROUS SULFATE 325MG TAB PO SCH (08:36)
[2023-04-13] MEDS: DRONABINOL 2.5MG CAP (MARINOL) PO SCH ×3 (08:36→22:49)
[2023-04-13] MEDS: ASCORBIC ACID 500 MG TAB PO SCH (08:37)
[2023-04-13] MEDS: SODIUM CHLORIDE 0.9% INJ 10 ML SYR IV SCH (08:37)
[2023-04-13] MEDS ORDERED: MIRALAX *UNIT DOSE* 17GM PACKET JT SCH (09:00)
[2023-04-13] MEDS ORDERED: FLEET ENEMA PR SCH (09:00)
[2023-04-13] MEDS ORDERED: BISACODYL 10MG SUPP PR SCH (09:00)
[2023-04-13] MEDS ORDERED: BISACODYL 10MG SUPP PR PRN (10:40)
[2023-04-13] MEDS ORDERED: FLEET ENEMA PR PRN (10:40)
[2023-04-13 14:00] VITALS: BP 104/61
[2023-04-13] MEDS ORDERED: FAT EMULSION IV 250 ML IV ONE (18:00)
[2023-04-13] MEDS ORDERED: AMINO AC/ELECTROLYTE/DEX/CALC 2,000 ML IV SCH (18:00)
[2023-04-13] MEDS: INSULIN LISPRO (NovoLOG) PER UNIT SC SCH (18:00)
[2023-04-13] MEDS: FLUTICASONE PROP 0.05% NASAL SPRAY 16 GM (FLONASE) SCH (21:00)
[2023-04-13] MEDS: FAMOTIDINE 20 MG TAB PO SCH (22:46)
[2023-04-13] MEDS: AMITRIPTYLINE 25MG TABLET PO SCH (22:46)
[2023-04-14 05:57] VITALS: BP 92/55
[2023-04-14] MEDS: INSULIN LISPRO (NovoLOG) PER UNIT SC SCH ×5 (06:00→23:37)
[2023-04-14 06:15] LABS: BASO % 0.4 % (0.0-1.0); EOS % 0.9 % (0.0-3.0); HEMATOCRIT 33.8 % (36.0-47.0); HEMOGLOBIN 10.9 g/dl (12.0-15.5); LYMPH # 1.1 10^3/uL (1.5-5.0); LYMPH % 24.1 % (24.0-44.0); MEAN CORPUSCULAR HEMOGLOBIN 28.5 pg (27.0-33.0); MEAN CORPUSCULAR HGB CONC 32.2 g/dl (32.0-36.5); MEAN CORPUSCULAR VOLUME 88.5 fl (80.0-96.0); MONO # 0.5 10^3/uL (0.0-0.8); MONO % 10.2 % (2.0-8.0); NEUTROPHILS % 64.2 % (36.0-66.0); PLATELET COUNT, AUTOMATED 226 10^3/uL (150-450); RED BLOOD COUNT 3.82 10^6/uL (4.00-5.40); WHITE BLOOD COUNT 4.7 10^3/uL (4.0-10.0)
[2023-04-14 06:39] LABS: BLOOD UREA NITROGEN 15 MG/DL (9-23); CALCIUM LEVEL 8.7 MG/DL (8.5-10.1); CARBON DIOXIDE LEVEL 25 MMOL/L (20-31); CHLORIDE LEVEL 104 MMOL/L (98-107); CREATININE FOR GFR 0.54 MG/DL (0.55-1.30); GLOMERULAR FILTRATION RATE > 60.0 (>60); GLUCOSE, FASTING 101 MG/DL (60-100); MAGNESIUM LEVEL 1.7 MG/DL (1.8-2.4); PHOSPHORUS LEVEL 4.7 MG/DL (2.5-4.9); POTASSIUM SERUM 4.6 MMOL/L (3.5-5.1); SODIUM LEVEL 137 MMOL/L (136-145)
[2023-04-14] MEDS: ADVAIR HFA 230/21MCG INHALER INH SCH ×2 (07:29→19:21)
[2023-04-14] MEDS: MIRALAX *UNIT DOSE* 17GM PACKET JT SCH (09:55)
[2023-04-14] MEDS: DRONABINOL 2.5MG CAP (MARINOL) PO SCH ×3 (09:55→20:59)
[2023-04-14] MEDS: SODIUM CHLORIDE 0.9% INJ 10 ML SYR IV SCH (09:55)
[2023-04-14] MEDS: APIXABAN 5 MG TAB (ELIQUIS) PO SCH ×2 (09:56→21:00)
[2023-04-14] MEDS: MIDODRINE 5 MG TAB PO SCH ×3 (09:56→21:00)
[2023-04-14] MEDS: CYANOCOBALAMIN 500 MCG TAB PO SCH (09:56)
[2023-04-14] MEDS: FERROUS SULFATE 325MG TAB PO SCH (09:56)
[2023-04-14] MEDS: ASCORBIC ACID 500 MG TAB PO SCH (09:56)
[2023-04-14 10:23] LABS: FREE T4 0.89 NG/DL (0.89-1.76); THYROID STIMULATING HORMONE 1.397 uIU/ML (0.55-4.78)
[2023-04-14] MEDS: MAGNESIUM OXIDE 400MG TAB (MAG-OX) PO SCH ×2 (13:22→20:59)
[2023-04-14 14:00] VITALS: BP 102/66
[2023-04-14] MEDS ORDERED: FAT EMULSION IV 250 ML IV ONE (18:00)
[2023-04-14] MEDS ORDERED: MULTIVITAMIN -ADULT INJECTION 10 ML, ZINC/COPPER/MANGANESE/SELENIUM 1 ML in AMINO AC/EL... IV SCH (18:00)
[2023-04-14] MEDS: FLUTICASONE PROP 0.05% NASAL SPRAY 16 GM (FLONASE) SCH (21:00)
[2023-04-14] MEDS: FAMOTIDINE 20 MG TAB PO SCH (21:00)
[2023-04-14] MEDS: AMITRIPTYLINE 25MG TABLET PO SCH (21:00)
[2023-04-14 21:20] VITALS: BP 105/61
[2023-04-15] MEDS: INSULIN LISPRO (NovoLOG) PER UNIT SC SCH ×3 (05:40→18:00)
[2023-04-15] MEDS: SODIUM CHLORIDE 0.9% INJ 10 ML SYR IV SCH (05:40)
[2023-04-15 06:00] VITALS: BP 102/56
[2023-04-15] MEDS: ADVAIR HFA 230/21MCG INHALER INH SCH ×2 (07:11→20:05)
[2023-04-15 07:40] LABS: BLOOD UREA NITROGEN 14 MG/DL (9-23); CARBON DIOXIDE LEVEL 25 MMOL/L (20-31); CHLORIDE LEVEL 104 MMOL/L (98-107); GLOMERULAR FILTRATION RATE > 60.0 (>60); GLUCOSE, FASTING 88 MG/DL (60-100); MAGNESIUM LEVEL 2.1 MG/DL (1.8-2.4); PHOSPHORUS LEVEL 4.2 MG/DL (2.5-4.9); POTASSIUM SERUM 4.1 MMOL/L (3.5-5.1); SODIUM LEVEL 136 MMOL/L (136-145)
[2023-04-15] MEDS: MIRALAX *UNIT DOSE* 17GM PACKET JT SCH (08:21)
[2023-04-15] MEDS: APIXABAN 5 MG TAB (ELIQUIS) PO SCH ×2 (08:21→21:08)
[2023-04-15] MEDS: CYANOCOBALAMIN 500 MCG TAB PO SCH (08:22)
[2023-04-15] MEDS: FERROUS SULFATE 325MG TAB PO SCH (08:22)
[2023-04-15] MEDS: MIDODRINE 5 MG TAB PO SCH ×3 (08:22→21:08)
[2023-04-15] MEDS: DRONABINOL 2.5MG CAP (MARINOL) PO SCH ×3 (08:23→21:08)
[2023-04-15] MEDS: MAGNESIUM OXIDE 400MG TAB (MAG-OX) PO SCH ×2 (08:23→21:09)
[2023-04-15] MEDS: ASCORBIC ACID 500 MG TAB PO SCH (08:23)
[2023-04-15 14:00] VITALS: BP 92/51
[2023-04-15] MEDS ORDERED: AMINO AC/ELECTROLYTE/DEX/CALC 2,000 ML IV SCH (18:00)
[2023-04-15] MEDS ORDERED: FAT EMULSION IV 250 ML IV ONE (18:00)
[2023-04-15] MEDS: FLUTICASONE PROP 0.05% NASAL SPRAY 16 GM (FLONASE) SCH (21:00)
[2023-04-15] MEDS: AMITRIPTYLINE 25MG TABLET PO SCH (21:08)
[2023-04-15] MEDS: FAMOTIDINE 20 MG TAB PO SCH (21:08)
[2023-04-15 21:39] VITALS: BP 102/58
[2023-04-16] MEDS: INSULIN LISPRO (NovoLOG) PER UNIT SC SCH ×3 (00:35→12:00)
[2023-04-16 05:43] LABS: BASO % 0.7 % (0.0-1.0); EOS # 0.1 10^3/uL (0.0-0.5); EOS % 1.7 % (0.0-3.0); HEMATOCRIT 32.9 % (36.0-47.0); HEMOGLOBIN 10.6 g/dl (12.0-15.5); LYMPH # 1.2 10^3/uL (1.5-5.0); LYMPH % 25.1 % (24.0-44.0); MEAN CORPUSCULAR HEMOGLOBIN 28.6 pg (27.0-33.0); MEAN CORPUSCULAR HGB CONC 32.2 g/dl (32.0-36.5); MEAN CORPUSCULAR VOLUME 88.7 fl (80.0-96.0); MONO # 0.5 10^3/uL (0.0-0.8); MONO % 11.5 % (2.0-8.0); NEUTROPHILS # 2.8 10^3/uL (1.5-8.5); NEUTROPHILS % 60.6 % (36.0-66.0); PLATELET COUNT, AUTOMATED 209 10^3/uL (150-450); RED BLOOD COUNT 3.71 10^6/uL (4.00-5.40); WHITE BLOOD COUNT 4.6 10^3/uL (4.0-10.0)
[2023-04-16 05:56] LABS: BLOOD UREA NITROGEN 14 MG/DL (9-23); CALCIUM LEVEL 9.2 MG/DL (8.5-10.1); CARBON DIOXIDE LEVEL 26 MMOL/L (20-31); CHLORIDE LEVEL 104 MMOL/L (98-107); GLOMERULAR FILTRATION RATE > 60.0 (>60); GLUCOSE, FASTING 111 MG/DL (60-100); MAGNESIUM LEVEL 2.1 MG/DL (1.8-2.4); POTASSIUM SERUM 4.3 MMOL/L (3.5-5.1); SODIUM LEVEL 137 MMOL/L (136-145)
[2023-04-16 06:00] VITALS: BP 106/66
[2023-04-16] MEDS: ADVAIR HFA 230/21MCG INHALER INH SCH (07:18)
[2023-04-16] MEDS: CYANOCOBALAMIN 500 MCG TAB PO SCH (09:06)
[2023-04-16] MEDS: DRONABINOL 2.5MG CAP (MARINOL) PO SCH (09:06)
[2023-04-16] MEDS: FERROUS SULFATE 325MG TAB PO SCH (09:06)
[2023-04-16] MEDS: APIXABAN 5 MG TAB (ELIQUIS) PO SCH (09:06)
[2023-04-16] MEDS: MIDODRINE 5 MG TAB PO SCH (09:06)
[2023-04-16] MEDS: MIRALAX *UNIT DOSE* 17GM PACKET JT SCH (09:07)
[2023-04-16] MEDS: ASCORBIC ACID 500 MG TAB PO SCH (09:07)
[2023-04-16] MEDS: SODIUM CHLORIDE 0.9% INJ 10 ML SYR IV SCH (09:07)
[2023-04-16] MEDS: MAGNESIUM OXIDE 400MG TAB (MAG-OX) PO SCH (09:07)
[2023-04-16] MEDS ORDERED: MAGN400T35 PO (10:15)
== END 2023-04-16 15:05 | disposition home health service (06) | DRG 421 ==
LOC: M MS5PR 18:53 → OBSVTOIN 04-14 11:45
PROVIDERS: ADMIT Internal Medicine; ATTEND Internal Medicine
DX: E43 Unspecified severe protein-calorie malnutrition (principal); Q79.60 Ehlers-Danlos syndrome, unspecified; G90.A Postural orthostatic tachycardia syndrome [POTS]; K31.84 Gastroparesis; F41.9 Anxiety disorder, unspecified; J45.909 Unspecified asthma, uncomplicated; E53.8 Deficiency of other specified B group vitamins; D50.9 Iron deficiency anemia, unspecified; G47.00 Insomnia, unspecified; G43.909 Migraine, unspecified, not intractable, without status migrainosus; R62.7 Adult failure to thrive; I95.1 Orthostatic hypotension; K21.9 Gastro-esophageal reflux disease without esophagitis; Z79.01 Long term (current) use of anticoagulants; Z79.899 Other long term (current) drug therapy; Z88.0 Allergy status to penicillin; Z86.718 Personal history of other venous thrombosis and embolism; Z88.8 Allergy status to other drugs, medicaments and biological substances; Z20.822 Contact with and (suspected) exposure to COVID-19; Z68.1 Body mass index [BMI] 19.9 or less, adult

== ENCOUNTER → 2023-04-24 | Outpatient (REF) | payer BC ==
[~2023-04-24] MED LIST changes: +FLON1SPR; +MAGN400T35 PO
[2023-04-24 14:32] LABS: HEMATOCRIT 33.1 % (36.0-47.0); HEMOGLOBIN 10.6 g/dl (12.0-15.5); MEAN CORPUSCULAR HEMOGLOBIN 28.8 pg (27.0-33.0); MEAN CORPUSCULAR VOLUME 89.9 fl (80.0-96.0); PLATELET COUNT, AUTOMATED 202 10^3/uL (150-450); RED BLOOD COUNT 3.68 10^6/uL (4.00-5.40); WHITE BLOOD COUNT 4.1 10^3/uL (4.0-10.0)
[2023-04-24 14:38] LABS: ALBUMIN 3.6 G/DL (3.2-5.2); ALKALINE PHOSPHATASE 53 U/L (46-116); ALT/SGPT 17 U/L (7.0-40); AST/SGOT 14 U/L (<34); BILIRUBIN,DIRECT < 0.1 MG/DL (<0.4); BILIRUBIN,TOTAL 0.2 MG/DL (0.3-1.2); BLOOD UREA NITROGEN 14 MG/DL (9-23); CALCIUM LEVEL 8.2 MG/DL (8.5-10.1); CARBON DIOXIDE LEVEL 27 MMOL/L (20-31); CHLORIDE LEVEL 107 MMOL/L (98-107); CREATININE FOR GFR 0.59 MG/DL (0.55-1.30); GLOMERULAR FILTRATION RATE > 60.0 (>60); GLUCOSE, FASTING 77 MG/DL (60-100); SODIUM LEVEL 141 MMOL/L (136-145); TOTAL PROTEIN 6.3 G/DL (5.7-8.2)
== END ==
LOC: M SHH 13:56
PROVIDERS: ATTEND Internal Medicine Gastroenterology
DX: K31.84 Gastroparesis (principal); R62.7 Adult failure to thrive

== ENCOUNTER → 2023-05-01 | Outpatient (REF) | payer BC ==
[2023-05-01 11:20] LABS: HEMATOCRIT 33.8 % (36.0-47.0); HEMOGLOBIN 10.9 g/dl (12.0-15.5); MEAN CORPUSCULAR HEMOGLOBIN 29.1 pg (27.0-33.0); MEAN CORPUSCULAR HGB CONC 32.2 g/dl (32.0-36.5); MEAN CORPUSCULAR VOLUME 90.1 fl (80.0-96.0); PLATELET COUNT, AUTOMATED 230 10^3/uL (150-450); RED BLOOD COUNT 3.75 10^6/uL (4.00-5.40); WHITE BLOOD COUNT 4.8 10^3/uL (4.0-10.0)
[2023-05-01 11:53] LABS: ALBUMIN 3.7 G/DL (3.2-5.2); ALKALINE PHOSPHATASE 54 U/L (46-116); ALT/SGPT 20 U/L (7.0-40); AST/SGOT 14 U/L (<34); BILIRUBIN,DIRECT < 0.1 MG/DL (<0.4); BILIRUBIN,TOTAL 0.2 MG/DL (0.3-1.2); BLOOD UREA NITROGEN 14 MG/DL (9-23); CALCIUM LEVEL 8.5 MG/DL (8.5-10.1); CARBON DIOXIDE LEVEL 26 MMOL/L (20-31); CHLORIDE LEVEL 105 MMOL/L (98-107); CREATININE FOR GFR 0.51 MG/DL (0.55-1.30); GLOMERULAR FILTRATION RATE > 60.0 (>60); GLUCOSE, FASTING 80 MG/DL (60-100); POTASSIUM SERUM 4.1 MMOL/L (3.5-5.1); SODIUM LEVEL 139 MMOL/L (136-145); TOTAL PROTEIN 6.5 G/DL (5.7-8.2)
== END ==
LOC: M SHH 10:18
PROVIDERS: ATTEND Internal Medicine Gastroenterology
DX: K31.84 Gastroparesis (principal); R62.7 Adult failure to thrive

== ENCOUNTER → 2023-05-08 | Outpatient (CLI) | payer BC ==
[~2023-05-08] MED LIST changes: -FLON1SPR; +FLON1SPR NARES; +LEVA1.2519 INH
== END ==
LOC: M RAD 07:59
DX: K59.01 Slow transit constipation (principal); N20.0 Calculus of kidney

== ENCOUNTER → 2023-05-08 | Outpatient (REF) | payer BC ==
[~2023-05-08] MED LIST changes: +FLON1SPR; -FLON1SPR NARES; -LEVA1.2519 INH
[2023-05-08 14:31] LABS: HEMOGLOBIN 11.2 g/dl (12.0-15.5); MEAN CORPUSCULAR HEMOGLOBIN 28.9 pg (27.0-33.0); MEAN CORPUSCULAR VOLUME 90.2 fl (80.0-96.0); PLATELET COUNT, AUTOMATED 174 10^3/uL (150-450); RED BLOOD COUNT 3.88 10^6/uL (4.00-5.40); WHITE BLOOD COUNT 5.7 10^3/uL (4.0-10.0)
[2023-05-08 15:04] LABS: ALKALINE PHOSPHATASE 56 U/L (46-116); ALT/SGPT 15 U/L (7.0-40); AST/SGOT 11 U/L (<34); BILIRUBIN,DIRECT < 0.1 MG/DL (<0.4); BILIRUBIN,TOTAL 0.2 MG/DL (0.3-1.2); BLOOD UREA NITROGEN 17 MG/DL (9-23); CALCIUM LEVEL 9.4 MG/DL (8.5-10.1); CARBON DIOXIDE LEVEL 27 MMOL/L (20-31); CHLORIDE LEVEL 103 MMOL/L (98-107); CREATININE FOR GFR 0.59 MG/DL (0.55-1.30); GLOMERULAR FILTRATION RATE > 60.0 (>60); GLUCOSE, FASTING 60 MG/DL (60-100); POTASSIUM SERUM 3.9 MMOL/L (3.5-5.1); SODIUM LEVEL 137 MMOL/L (136-145); TOTAL PROTEIN 6.8 G/DL (5.7-8.2)
== END ==
LOC: M SHH 14:08
PROVIDERS: ATTEND Internal Medicine Gastroenterology
DX: K31.84 Gastroparesis (principal); R62.7 Adult failure to thrive

== ENCOUNTER → 2023-05-15 | Outpatient (REF) | payer BC ==
[2023-05-15 15:33] LABS: HEMATOCRIT 36.9 % (36.0-47.0); MEAN CORPUSCULAR HEMOGLOBIN 28.4 pg (27.0-33.0); MEAN CORPUSCULAR HGB CONC 32.5 g/dl (32.0-36.5); MEAN CORPUSCULAR VOLUME 87.4 fl (80.0-96.0); PLATELET COUNT, AUTOMATED 232 10^3/uL (150-450); RED BLOOD COUNT 4.22 10^6/uL (4.00-5.40); WHITE BLOOD COUNT 5.4 10^3/uL (4.0-10.0)
[2023-05-15 15:59] LABS: ALBUMIN 3.7 G/DL (3.2-5.2); ALKALINE PHOSPHATASE 60 U/L (46-116); ALT/SGPT 17 U/L (7.0-40); AST/SGOT < 8 U/L (<34); BILIRUBIN,DIRECT < 0.1 MG/DL (<0.4); BILIRUBIN,TOTAL 0.2 MG/DL (0.3-1.2); BLOOD UREA NITROGEN 11 MG/DL (9-23); CALCIUM LEVEL 8.3 MG/DL (8.5-10.1); CARBON DIOXIDE LEVEL 27 MMOL/L (20-31); CHLORIDE LEVEL 105 MMOL/L (98-107); CREATININE FOR GFR 0.58 MG/DL (0.55-1.30); GLOMERULAR FILTRATION RATE > 60.0 (>60); GLUCOSE, FASTING 76 MG/DL (60-100); POTASSIUM SERUM 3.5 MMOL/L (3.5-5.1); SODIUM LEVEL 139 MMOL/L (136-145); TOTAL PROTEIN 6.8 G/DL (5.7-8.2)
== END ==
LOC: M SHH 15:00
PROVIDERS: ATTEND Internal Medicine Gastroenterology
DX: K31.84 Gastroparesis (principal); R62.7 Adult failure to thrive

== ENCOUNTER → 2023-05-22 | Outpatient (REF) | payer BC ==
[2023-05-22 15:44] LABS: HEMATOCRIT 34.1 % (36.0-47.0); MEAN CORPUSCULAR HEMOGLOBIN 28.7 pg (27.0-33.0); MEAN CORPUSCULAR HGB CONC 32.3 g/dl (32.0-36.5); PLATELET COUNT, AUTOMATED 305 10^3/uL (150-450); RED BLOOD COUNT 3.83 10^6/uL (4.00-5.40)
[2023-05-22 16:33] LABS: ALBUMIN 3.5 G/DL (3.2-5.2); ALKALINE PHOSPHATASE 57 U/L (46-116); ALT/SGPT 10 U/L (7.0-40); AST/SGOT 19 U/L (<34); BILIRUBIN,DIRECT < 0.1 MG/DL (<0.4); BILIRUBIN,TOTAL 0.2 MG/DL (0.3-1.2); BLOOD UREA NITROGEN 16 MG/DL (9-23); CALCIUM LEVEL 8.5 MG/DL (8.5-10.1); CARBON DIOXIDE LEVEL 29 MMOL/L (20-31); CHLORIDE LEVEL 106 MMOL/L (98-107); CREATININE FOR GFR 0.51 MG/DL (0.55-1.30); GLOMERULAR FILTRATION RATE > 60.0 (>60); GLUCOSE, FASTING 63 MG/DL (60-100); POTASSIUM SERUM 4.1 MMOL/L (3.5-5.1); SODIUM LEVEL 140 MMOL/L (136-145); TOTAL PROTEIN 6.2 G/DL (5.7-8.2)
== END ==
LOC: M SHH 15:38
PROVIDERS: ATTEND Internal Medicine Gastroenterology
DX: K31.84 Gastroparesis (principal); R62.7 Adult failure to thrive

== ENCOUNTER → 2023-05-29 | Outpatient (REF) | payer BC ==
[2023-05-29 16:16] LABS: HEMATOCRIT 33.5 % (36.0-47.0); HEMOGLOBIN 10.9 g/dl (12.0-15.5); MEAN CORPUSCULAR HEMOGLOBIN 28.5 pg (27.0-33.0); MEAN CORPUSCULAR HGB CONC 32.5 g/dl (32.0-36.5); MEAN CORPUSCULAR VOLUME 87.5 fl (80.0-96.0); PLATELET COUNT, AUTOMATED 231 10^3/uL (150-450); RED BLOOD COUNT 3.83 10^6/uL (4.00-5.40); WHITE BLOOD COUNT 5.1 10^3/uL (4.0-10.0)
[2023-05-29 16:46] LABS: ALBUMIN 3.5 G/DL (3.2-5.2); ALKALINE PHOSPHATASE 60 U/L (46-116); ALT/SGPT 10 U/L (7.0-40); AST/SGOT 10 U/L (<34); BILIRUBIN,DIRECT < 0.1 MG/DL (<0.4); BILIRUBIN,TOTAL 0.2 MG/DL (0.3-1.2); BLOOD UREA NITROGEN 10 MG/DL (9-23); CALCIUM LEVEL 9.3 MG/DL (8.5-10.1); CARBON DIOXIDE LEVEL 27 MMOL/L (20-31); CHLORIDE LEVEL 105 MMOL/L (98-107); CREATININE FOR GFR 0.55 MG/DL (0.55-1.30); GLOMERULAR FILTRATION RATE > 60.0 (>60); GLUCOSE, FASTING 71 MG/DL (60-100); MAGNESIUM LEVEL 2.1 MG/DL (1.8-2.4); POTASSIUM SERUM 3.7 MMOL/L (3.5-5.1); SODIUM LEVEL 139 MMOL/L (136-145); TOTAL PROTEIN 6.8 G/DL (5.7-8.2)
== END ==
LOC: M SHH 15:33
PROVIDERS: ATTEND Internal Medicine Gastroenterology
DX: K31.84 Gastroparesis (principal); R62.7 Adult failure to thrive

== ENCOUNTER 2023-06-04 22:21 | Inpatient (IN) | payer BC ==
[~2023-06-04] VITALS: Ht 172.7 cm; Wt 45.2 kg
[~2023-06-04 22:21] MED LIST changes: -FLON1SPR; +FLON1SPR NARES
[2023-06-04] MEDS ORDERED: NS 1,400 ML in IV 1 EA IV ONE (23:10)
[2023-06-04] MEDS ORDERED: ACETAMINOPHEN 1000MG 100ML IV BAG IV ONE (23:10)
[2023-06-05 00:32] LABS: APPEARANCE, URINE HAZY (CLEAR); BACTERIA, URINE AUTO 1+ (NEGATIVE); BILIRUBIN, URINE AUTO NEGATIVE (NEGATIVE); BLOOD, URINE BLOOD NEGATIVE (NEGATIVE); COLOR, URINE YELLOW (YELLOW); GLUCOSE, URINE (UA) AUTO NEGATIVE (NEGATIVE); KETONE, URINE AUTO NEGATIVE (NEGATIVE); LEUKOCYTE ESTERASE, URINE AUTO TRACE (NEGATIVE); MUCUS, URINE SMALL (NEGATIVE); NITRITE, URINE AUTO NEGATIVE (NEGATIVE); PROTEIN, URINE AUTO NEGATIVE (NEGATIVE); RBC, URINE AUTO 1 /HPF (0-3); SPECIFIC GRAVITY URINE AUTO 1.013 (1.002-1.035); SQUAMOUS EPITHELIAL CELL UR AU 9 /HPF (0-6); UROBILINOGEN, URINE AUTO 0.2 mg/dL (0.0-2.0); WBC, URINE AUTO 8 /HPF (0-3)
[2023-06-05 00:35] LABS: INR 1.06
[2023-06-05 00:36] LABS: PARTIAL THROMBOPLASTIN TIME 26.9 SECONDS (24.8-34.2)
[2023-06-05 00:43] LABS: AMYLASE 72 U/L (30-118)
[2023-06-05 00:44] LABS: ALBUMIN 3.6 G/DL (3.2-5.2); ALKALINE PHOSPHATASE 68 U/L (46-116); ALT/SGPT 13 U/L (7.0-40); AST/SGOT 13 U/L (<34); BILIRUBIN,DIRECT 0.2 MG/DL (<0.4); BILIRUBIN,TOTAL 0.5 MG/DL (0.3-1.2); BLOOD UREA NITROGEN 11 MG/DL (9-23); C REACTIVE PROTEIN QUANTITATIV < 0.40 MG/DL (<1.0); CALCIUM LEVEL 8.9 MG/DL (8.5-10.1); CARBON DIOXIDE LEVEL 26 MMOL/L (20-31); CHLORIDE LEVEL 103 MMOL/L (98-107); CREATININE FOR GFR 0.56 MG/DL (0.55-1.30); GLOMERULAR FILTRATION RATE > 60.0 (>60); GLUCOSE, FASTING 99 MG/DL (60-100); HEMOGLOBIN 10.7 g/dl (12.0-15.5); MEAN CORPUSCULAR HEMOGLOBIN 28.8 pg (27.0-33.0); MEAN CORPUSCULAR HGB CONC 33.4 g/dl (32.0-36.5); PLATELET COUNT, AUTOMATED 164 10^3/uL (150-450); RED BLOOD COUNT 3.72 10^6/uL (4.00-5.40); SODIUM LEVEL 139 MMOL/L (136-145); TOTAL PROTEIN 6.5 G/DL (5.7-8.2); WHITE BLOOD COUNT 11.1 10^3/uL (4.0-10.0)
[2023-06-05 00:46] LABS: HCG, SERUM QUALITATIVE NEGATIVE (NEGATIVE)
[2023-06-05 01:09] LABS: RSV AMPLIFICATION NEGATIVE (NEGATIVE)
[2023-06-05 01:34] LABS: LYMPHOCYTES 8 % (16-44); METAMYELOCYTES 2 % (0-0); MONOCYTES 1 % (0-5); NEUTROPHILS 83 % (28-66); PLATELET ESTIMATE NORMAL (NORMAL)
[2023-06-05 01:43] LABS: PROCALCITONIN >50.00 ng/ml
[2023-06-05] MEDS ORDERED: KCL 10MEQ/100ML SWI (KRUN) 10 MEQ in IV 1 EA IV ONE ×2 (02:10→03:00)
[2023-06-05] MEDS ORDERED: ERTAPENEM SODIUM 1 GM in NS MINI-BAG PLUS 50 ML IV ONE (02:10)
[2023-06-05] MEDS ORDERED: ISOVUE-370 76% 100ML VIAL As Ordered ONE (02:21)
[2023-06-05] MEDS ORDERED: NS 1,000 ML IV SCH (04:00)
[2023-06-05] MEDS ORDERED: LEVA1.2519 INH (04:18)
[2023-06-05] MEDS ORDERED: HOME MED LIST COMPLETE! XX SCH (04:25)
[2023-06-05] MEDS ORDERED: KCL 40MEQ in NS 1000ML 1,000 ML IV SCH (05:10)
[2023-06-05] MEDS ORDERED: NS 500 ML IV ONE (05:10)
[2023-06-05] MEDS ORDERED: VANCOMYCIN HCL 500 MG, VIAL MATE ADAPTER 1 EACH in D5W 250 ML IV SCH (05:35)
[2023-06-05] MEDS ORDERED: VANCOMYCIN HCL 1,000 MG, VIAL MATE ADAPTER 1 EACH in D5W 250 ML IV ONE (06:00)
[2023-06-05 08:15] LABS: BLOOD UREA NITROGEN 10 MG/DL (9-23); CALCIUM LEVEL 7.1 MG/DL (8.5-10.1); CARBON DIOXIDE LEVEL 23 MMOL/L (20-31); CHLORIDE LEVEL 107 MMOL/L (98-107); CREATININE FOR GFR 0.52 MG/DL (0.55-1.30); GLOMERULAR FILTRATION RATE > 60.0 (>60); GLUCOSE, FASTING 121 MG/DL (60-100); SODIUM LEVEL 138 MMOL/L (136-145)
[2023-06-05] MEDS ORDERED: diphenhydrAMINE 50MG/ML VIAL IV ONE ×2 (08:35→22:15)
[2023-06-05 08:36] LABS: BASO % 0.1 % (0.0-1.0); HEMATOCRIT 28.5 % (36.0-47.0); HEMOGLOBIN 9.3 g/dl (12.0-15.5); LYMPH # 0.5 10^3/uL (1.5-5.0); LYMPH % 2.4 % (24.0-44.0); MEAN CORPUSCULAR HEMOGLOBIN 29.1 pg (27.0-33.0); MEAN CORPUSCULAR HGB CONC 32.6 g/dl (32.0-36.5); MEAN CORPUSCULAR VOLUME 89.1 fl (80.0-96.0); MONO # 0.4 10^3/uL (0.0-0.8); MONO % 1.9 % (2.0-8.0); NEUTROPHILS # 19.9 10^3/uL (1.5-8.5); NEUTROPHILS % 94.6 % (36.0-66.0); PLATELET COUNT, AUTOMATED 170 10^3/uL (150-450)
[2023-06-05 09:00] VITALS: BP 95/56; TEMP 97.9; O2SAT 99
[2023-06-05 09:13] LABS: ERYTHROCYTE SEDIMENTATION RATE 12 mm/hr (0-20)
[2023-06-05] MEDS ORDERED: FAMOTIDINE 20 MG TAB PO ONE (09:15)
[2023-06-05] MEDS ORDERED: FAMOTIDINE 20MG/2ML VIAL IV ONE (10:00)
[2023-06-05] MEDS: ENOXAPARIN 40MG/0.4ML SYRINGE (J1650 PER 10MG) SC SCH (11:32)
[2023-06-05 11:58] VITALS: BP 94/47; TEMP 98; O2SAT 99
[2023-06-05] MEDS: VANCOMYCIN HCL 750 MG, VIAL MATE ADAPTER 1 EACH in D5W 250 ML IV SCH ×2 (15:06→22:48)
[2023-06-05 15:54] VITALS: BP 101/57; TEMP 97.9; O2SAT 99
[2023-06-05] MEDS: SODIUM CHLORIDE 0.9% INJ 10 ML SYR IV PRN (17:59)
[2023-06-05 20:10] VITALS: BP 99/54; TEMP 98.2; O2SAT 97
[2023-06-05] MEDS ORDERED: FAMOTIDINE IV BAG 20 MG in IV 1 EA IV ONE (22:15)
[2023-06-06 00:38] VITALS: BP 108/52; TEMP 97.9; O2SAT 98
[2023-06-06] MEDS ORDERED: ERTAPENEM SODIUM 1 GM in NS MINI-BAG PLUS 50 ML IV SCH (03:00)
[2023-06-06] MEDS: SODIUM CHLORIDE 0.9% INJ 10 ML SYR IV PRN ×2 (03:08→22:04)
[2023-06-06 04:53] VITALS: BP 114/52; TEMP 98; O2SAT 97
[2023-06-06] MEDS ORDERED: LEVALBUTEROL HFA 45MCG/ACT 15GM INHALER INH PRN (04:55)
[2023-06-06] MEDS ORDERED: ONDANSETRON 4MG TAB PO PRN (04:55)
[2023-06-06] MEDS ORDERED: SUMAtriptan SUCCINATE 25 MG TAB PO PRN (04:55)
[2023-06-06 06:20] LABS: HEMATOCRIT 29.5 % (36.0-47.0); HEMOGLOBIN 9.8 g/dl (12.0-15.5); MEAN CORPUSCULAR HEMOGLOBIN 28.7 pg (27.0-33.0); MEAN CORPUSCULAR HGB CONC 33.2 g/dl (32.0-36.5); MEAN CORPUSCULAR VOLUME 86.5 fl (80.0-96.0); PLATELET COUNT, AUTOMATED 131 10^3/uL (150-450); RED BLOOD COUNT 3.41 10^6/uL (4.00-5.40); WHITE BLOOD COUNT 12.1 10^3/uL (4.0-10.0)
[2023-06-06 06:57] LABS: BLOOD UREA NITROGEN 8 MG/DL (9-23); CALCIUM LEVEL 8.1 MG/DL (8.5-10.1); CARBON DIOXIDE LEVEL 24 MMOL/L (20-31); CHLORIDE LEVEL 107 MMOL/L (98-107); GLOMERULAR FILTRATION RATE > 60.0 (>60); GLUCOSE, FASTING 75 MG/DL (60-100); POTASSIUM SERUM 3.6 MMOL/L (3.5-5.1); SODIUM LEVEL 140 MMOL/L (136-145)
[2023-06-06] MEDS: VANCOMYCIN HCL 750 MG, VIAL MATE ADAPTER 1 EACH in D5W 250 ML IV SCH ×2 (07:00→17:45)
[2023-06-06] MEDS ORDERED: ADVAIR HFA 230/21MCG INHALER INH SCH (08:00)
[2023-06-06 08:35] VITALS: BP 107/69; TEMP 98; O2SAT 99
[2023-06-06] MEDS: SODIUM CHLORIDE 0.9% INJ 10 ML SYR IV SCH (08:52)
[2023-06-06] MEDS: ENOXAPARIN 40MG/0.4ML SYRINGE (J1650 PER 10MG) SC SCH (08:53)
[2023-06-06] MEDS ORDERED: APIXABAN 5 MG TAB (ELIQUIS) PO SCH (09:00)
[2023-06-06] MEDS ORDERED: TPN IV (09:09)
[2023-06-06] MEDS ORDERED: HOME MED LIST COMPLETE! XX SCH (09:10)
[2023-06-06] MEDS: ADVAIR HFA 230/21MCG INHALER INH SCH ×2 (09:17→20:00)
[2023-06-06] MEDS ORDERED: MIRALAX *UNIT DOSE* 17GM PACKET JT PRN (11:05)
[2023-06-06 12:03] VITALS: BP 105/66; TEMP 97.8; O2SAT 100
[2023-06-06] MEDS: CYANOCOBALAMIN 500 MCG TAB PO SCH (12:34)
[2023-06-06] MEDS: MIDODRINE 5 MG TAB PO SCH ×2 (12:34→16:59)
[2023-06-06] MEDS: ASCORBIC ACID 500 MG TAB PO SCH (12:34)
[2023-06-06] MEDS: FERROUS SULFATE 325MG TAB PO SCH (12:34)
[2023-06-06] MEDS: KCL 10MEQ/100ML SWI (KRUN) 10 MEQ in IV 1 EA IV SCH ×2 (12:35→14:01)
[2023-06-06] MEDS ORDERED: GLUCOSE 4GM CHEW TABLET PO PRN (14:30)
[2023-06-06] MEDS ORDERED: DEXTROSE 50% 50ML SYRINGE IV PRN (14:30)
[2023-06-06] MEDS ORDERED: GLUCAGON INJ 1MG VIAL SC PRN (14:30)
[2023-06-06] MEDS: D5W/0.45% SODIUM CHLORIDE 1,000 ML IV SCH (15:06)
[2023-06-06] MEDS: FAMOTIDINE 20MG/2ML VIAL IV SCH (16:59)
[2023-06-06] MEDS: diphenhydrAMINE 50MG/ML VIAL IV SCH (16:59)
[2023-06-06] MEDS: AMITRIPTYLINE 25MG TABLET PO SCH (19:54)
[2023-06-06 21:29] VITALS: BP 94/63; TEMP 98.2; O2SAT 98
[2023-06-07] VITALS (7 sets, daily range): BP systolic 84–102; BP diastolic 47–70; TEMP 97.7–98.1; O2SAT 96–99
[2023-06-07 05:31] LABS: HEMATOCRIT 31.5 % (36.0-47.0); HEMOGLOBIN 10.3 g/dl (12.0-15.5); MEAN CORPUSCULAR HEMOGLOBIN 28.1 pg (27.0-33.0); MEAN CORPUSCULAR HGB CONC 32.7 g/dl (32.0-36.5); MEAN CORPUSCULAR VOLUME 86.1 fl (80.0-96.0); PLATELET COUNT, AUTOMATED 158 10^3/uL (150-450); RED BLOOD COUNT 3.66 10^6/uL (4.00-5.40); WHITE BLOOD COUNT 5.8 10^3/uL (4.0-10.0)
[2023-06-07] MEDS ORDERED: NS 500 ML IV ONE (05:50)
[2023-06-07] MEDS: diphenhydrAMINE 50MG/ML VIAL IV SCH ×3 (05:55→21:47)
[2023-06-07] MEDS: FAMOTIDINE 20MG/2ML VIAL IV SCH ×3 (05:55→21:47)
[2023-06-07] MEDS: D5W/0.45% SODIUM CHLORIDE 1,000 ML IV SCH ×2 (05:55→17:27)
[2023-06-07 06:02] LABS: VANCOMYCIN LEVEL TROUGH 10.4 UG/ML (10.0-20.0)
[2023-06-07 06:04] LABS: BLOOD UREA NITROGEN < 5 MG/DL (9-23); CALCIUM LEVEL 8.5 MG/DL (8.5-10.1); CARBON DIOXIDE LEVEL 25 MMOL/L (20-31); CHLORIDE LEVEL 107 MMOL/L (98-107); CREATININE FOR GFR 0.55 MG/DL (0.55-1.30); GLOMERULAR FILTRATION RATE > 60.0 (>60); GLUCOSE, FASTING 96 MG/DL (60-100); POTASSIUM SERUM 3.8 MMOL/L (3.5-5.1); SODIUM LEVEL 140 MMOL/L (136-145)
[2023-06-07] MEDS: VANCOMYCIN HCL 750 MG, VIAL MATE ADAPTER 1 EACH in D5W 250 ML IV SCH ×3 (06:32→22:05)
[2023-06-07] MEDS: ADVAIR HFA 230/21MCG INHALER INH SCH ×2 (08:46→19:09)
[2023-06-07] MEDS: CYANOCOBALAMIN 500 MCG TAB PO SCH (09:20)
[2023-06-07] MEDS: MIDODRINE 5 MG TAB PO SCH ×3 (09:20→17:25)
[2023-06-07] MEDS: FERROUS SULFATE 325MG TAB PO SCH (09:20)
[2023-06-07] MEDS: ENOXAPARIN 40MG/0.4ML SYRINGE (J1650 PER 10MG) SC SCH (09:20)
[2023-06-07] MEDS: ASCORBIC ACID 500 MG TAB PO SCH (09:20)
[2023-06-07] MEDS: SODIUM CHLORIDE 0.9% INJ 10 ML SYR IV SCH (09:21)
[2023-06-07] MEDS ORDERED: BISACODYL 10MG SUPP PR ONE (12:25)
[2023-06-07] MEDS: MIRALAX *UNIT DOSE* 17GM PACKET JT SCH (14:29)
[2023-06-07] MEDS: SODIUM CHLORIDE 0.9% INJ 10 ML SYR IV PRN (17:25)
[2023-06-07] MEDS ORDERED: TPN XX SCH (18:00)
[2023-06-07] MEDS ORDERED: [UNRECOGNIZED DRUG - OTHER] XX SCH (18:00)
[2023-06-07] MEDS: ENTER DRUG NAME HERE (PATIENT'S OWN MED) IV SCH (18:00)
[2023-06-07] MEDS: AMITRIPTYLINE 25MG TABLET PO SCH (21:47)
[2023-06-08] MEDS: D5W/0.45% SODIUM CHLORIDE 1,000 ML IV SCH (01:58)
[2023-06-08 05:48] LABS: HEMATOCRIT 31.5 % (36.0-47.0); HEMOGLOBIN 10.3 g/dl (12.0-15.5); MEAN CORPUSCULAR HEMOGLOBIN 28.4 pg (27.0-33.0); MEAN CORPUSCULAR HGB CONC 32.7 g/dl (32.0-36.5); MEAN CORPUSCULAR VOLUME 86.8 fl (80.0-96.0); PLATELET COUNT, AUTOMATED 182 10^3/uL (150-450); RED BLOOD COUNT 3.63 10^6/uL (4.00-5.40); WHITE BLOOD COUNT 4.8 10^3/uL (4.0-10.0)
[2023-06-08 06:00] VITALS: BP 86/49; TEMP 98.1; O2SAT 98
[2023-06-08] MEDS: FAMOTIDINE 20MG/2ML VIAL IV SCH (06:00)
[2023-06-08] MEDS: diphenhydrAMINE 50MG/ML VIAL IV SCH (06:00)
[2023-06-08 06:16] LABS: BLOOD UREA NITROGEN 5 MG/DL (9-23); CALCIUM LEVEL 8.6 MG/DL (8.5-10.1); CARBON DIOXIDE LEVEL 25 MMOL/L (20-31); CHLORIDE LEVEL 106 MMOL/L (98-107); CREATININE FOR GFR 0.47 MG/DL (0.55-1.30); GLOMERULAR FILTRATION RATE > 60.0 (>60); GLUCOSE, FASTING 135 MG/DL (60-100); POTASSIUM SERUM 4.1 MMOL/L (3.5-5.1); SODIUM LEVEL 137 MMOL/L (136-145)
[2023-06-08] MEDS: VANCOMYCIN HCL 750 MG, VIAL MATE ADAPTER 1 EACH in D5W 250 ML IV SCH ×2 (06:36→09:43)
[2023-06-08] MEDS: ADVAIR HFA 230/21MCG INHALER INH SCH ×2 (07:31→20:19)
[2023-06-08] MEDS ORDERED: NS 1,000 ML IV ONE (08:15)
[2023-06-08 09:00] VITALS: BP 110/68
[2023-06-08] MEDS: ENOXAPARIN 40MG/0.4ML SYRINGE (J1650 PER 10MG) SC SCH (09:13)
[2023-06-08] MEDS: ASCORBIC ACID 500 MG TAB PO SCH (09:14)
[2023-06-08] MEDS: MIDODRINE 5 MG TAB PO SCH ×3 (09:14→18:58)
[2023-06-08] MEDS: FERROUS SULFATE 325MG TAB PO SCH (09:14)
[2023-06-08] MEDS: CYANOCOBALAMIN 500 MCG TAB PO SCH (09:14)
[2023-06-08] MEDS: SODIUM CHLORIDE 0.9% INJ 10 ML SYR IV SCH (09:15)
[2023-06-08] MEDS: MIRALAX *UNIT DOSE* 17GM PACKET JT SCH (09:40)
[2023-06-08] MEDS: DOCUSATE SODIUM 100MG CAPSULE PO SCH ×2 (12:05→21:40)
[2023-06-08 14:00] VITALS: BP 110/62; TEMP 98.2; O2SAT 99
[2023-06-08 15:44] VITALS: BP 101/73; TEMP 97.9; O2SAT 100
[2023-06-08] MEDS ORDERED: CETACAINE SPRAY 5GM As Ordered ONE (16:29)
[2023-06-08] MEDS ORDERED: LIDOCAINE 2% 100MG/5ML SDV (FOR ANES.) As Ordered ONE (16:32)
[2023-06-08] MEDS ORDERED: fentaNYL 100 MCG/2 ML INJECTION As Ordered ONE (16:32)
[2023-06-08] MEDS ORDERED: propofoL 200 MG/20 ML VIAL As Ordered ONE (16:32)
[2023-06-08] MEDS ORDERED: MIDAZOLAM INJ 2MG/2ML VIAL As Ordered ONE (16:32)
[2023-06-08] MEDS ORDERED: FAMOTIDINE 20MG/2ML VIAL IV SCH ×2 (17:00→19:30)
[2023-06-08] MEDS ORDERED: VANCOMYCIN HCL 750 MG, VIAL MATE ADAPTER 1 EACH in D5W 250 ML IV SCH ×6 (17:00)
[2023-06-08] MEDS ORDERED: diphenhydrAMINE 50MG/ML VIAL IV SCH ×2 (17:00→19:30)
[2023-06-08] MEDS: ENTER DRUG NAME HERE (PATIENT'S OWN MED) IV SCH (18:00)
[2023-06-08] MEDS ORDERED: [UNRECOGNIZED DRUG - OTHER] XX SCH (18:00)
[2023-06-08] MEDS ORDERED: TPN XX SCH (18:00)
[2023-06-08 18:45] VITALS: BP 118/62; TEMP 98.1; O2SAT 100
[2023-06-08 20:00] VITALS: BP 99/72; TEMP 98.4; O2SAT 94
[2023-06-08] MEDS: AMITRIPTYLINE 25MG TABLET PO SCH (21:40)
[2023-06-09] VITALS (9 sets, daily range): BP systolic 90–120; BP diastolic 48–80; TEMP 97.9–99; O2SAT 95–100
[2023-06-09] MEDS ORDERED: diphenhydrAMINE 50MG/ML VIAL IV ONE (03:55)
[2023-06-09] MEDS ORDERED: FAMOTIDINE 20MG/2ML VIAL IVP ONE (03:55)
[2023-06-09] MEDS: DAPTOmycin 400 MG in NS 50 ML IV SCH ×2 (04:11→20:24)
[2023-06-09] MEDS: ADVAIR HFA 230/21MCG INHALER INH SCH ×2 (07:35→21:05)
[2023-06-09 08:07] LABS: HEMATOCRIT 34.8 % (36.0-47.0); HEMOGLOBIN 11.2 g/dl (12.0-15.5); MEAN CORPUSCULAR HGB CONC 32.2 g/dl (32.0-36.5); PLATELET COUNT, AUTOMATED 181 10^3/uL (150-450); WHITE BLOOD COUNT 4.8 10^3/uL (4.0-10.0)
[2023-06-09] MEDS: MIDODRINE 5 MG TAB PO SCH ×3 (08:29→16:35)
[2023-06-09] MEDS: CYANOCOBALAMIN 500 MCG TAB PO SCH (08:29)
[2023-06-09] MEDS: ASCORBIC ACID 500 MG TAB PO SCH (08:29)
[2023-06-09] MEDS: FERROUS SULFATE 325MG TAB PO SCH (08:29)
[2023-06-09] MEDS: SODIUM CHLORIDE 0.9% INJ 10 ML SYR IV SCH ×2 (08:29→17:21)
[2023-06-09] MEDS: MIRALAX *UNIT DOSE* 17GM PACKET JT SCH (08:29)
[2023-06-09] MEDS: DOCUSATE SODIUM 100MG CAPSULE PO SCH ×2 (08:32→20:22)
[2023-06-09 08:34] LABS: BLOOD UREA NITROGEN 7 MG/DL (9-23); CARBON DIOXIDE LEVEL 24 MMOL/L (20-31); CHLORIDE LEVEL 106 MMOL/L (98-107); GLOMERULAR FILTRATION RATE > 60.0 (>60); GLUCOSE, FASTING 89 MG/DL (60-100); POTASSIUM SERUM 4.3 MMOL/L (3.5-5.1); SODIUM LEVEL 139 MMOL/L (136-145)
[2023-06-09] MEDS: ENOXAPARIN 40MG/0.4ML SYRINGE (J1650 PER 10MG) SC SCH (08:43)
[2023-06-09] MEDS ORDERED: FAMOTIDINE 20 MG TAB PO SCH (09:00)
[2023-06-09] MEDS ORDERED: fentaNYL 100 MCG/2 ML INJECTION As Ordered ONE (10:46)
[2023-06-09] MEDS ORDERED: LIDOCAINE 1% MDV 20ML VIAL As Ordered ONE ×2 (10:47→11:45)
[2023-06-09] MEDS ORDERED: LIDOCAINE W/EPINEPHRINE 1% 20ML VIAL As Ordered ONE (10:47)
[2023-06-09] MEDS ORDERED: MIDAZOLAM INJ 2MG/2ML VIAL As Ordered ONE (10:47)
[2023-06-09] MEDS ORDERED: MORPHINE 4 MG/ML 1ML VIAL IV ONE (13:05)
[2023-06-09] MEDS ORDERED: SODIUM CHLORIDE 0.9% INJ 10 ML SYR IV PRN (13:10)
[2023-06-09] MEDS ORDERED: PILL CUTTER 1 EACH XX PRN (13:25)
[2023-06-09] MEDS: ENTER DRUG NAME HERE (PATIENT'S OWN MED) IV SCH (16:09)
[2023-06-09] MEDS ORDERED: PERCOCET 5MG/325MG TAB PO PRN (16:10)
[2023-06-09] MEDS: PERCOCET 5MG/325MG TAB PO PRN ×2 (16:35→22:01)
[2023-06-09] MEDS ORDERED: HYDROMORPHONE HCL 0.5 MG/ 0.5 ML SYRINGE IV ONE (19:45)
[2023-06-09] MEDS: AMITRIPTYLINE 25MG TABLET PO SCH (20:22)
[2023-06-09] MEDS: FAMOTIDINE 20 MG TAB PO SCH (20:23)
[2023-06-09] MEDS: BISACODYL 10MG SUPP PR SCH ×2 (20:23→21:00)
[2023-06-10] VITALS (7 sets, daily range): BP systolic 88–112; BP diastolic 50–62; TEMP 97.7–98.6; O2SAT 94–99
[2023-06-10] MEDS: PERCOCET 5MG/325MG TAB PO PRN ×2 (04:42→17:15)
[2023-06-10] MEDS: SODIUM CHLORIDE 0.9% INJ 10 ML SYR IV SCH ×2 (05:48→18:00)
[2023-06-10 06:01] LABS: HEMATOCRIT 33.6 % (36.0-47.0); HEMOGLOBIN 10.9 g/dl (12.0-15.5); MEAN CORPUSCULAR HGB CONC 32.4 g/dl (32.0-36.5); MEAN CORPUSCULAR VOLUME 86.4 fl (80.0-96.0); PLATELET COUNT, AUTOMATED 212 10^3/uL (150-450); RED BLOOD COUNT 3.89 10^6/uL (4.00-5.40); WHITE BLOOD COUNT 5.3 10^3/uL (4.0-10.0)
[2023-06-10 06:27] LABS: BLOOD UREA NITROGEN 8 MG/DL (9-23); CARBON DIOXIDE LEVEL 24 MMOL/L (20-31); CHLORIDE LEVEL 104 MMOL/L (98-107); GLOMERULAR FILTRATION RATE > 60.0 (>60); GLUCOSE, FASTING 82 MG/DL (60-100); MAGNESIUM LEVEL 1.9 MG/DL (1.8-2.4); PHOSPHORUS LEVEL 4.6 MG/DL (2.5-4.9); POTASSIUM SERUM 4.3 MMOL/L (3.5-5.1); SODIUM LEVEL 138 MMOL/L (136-145)
[2023-06-10] MEDS: ADVAIR HFA 230/21MCG INHALER INH SCH ×2 (07:10→18:55)
[2023-06-10] MEDS ORDERED: MORPHINE 2 MG/ML 1ML VIAL IV PRN (08:05)
[2023-06-10] MEDS: FERROUS SULFATE 325MG TAB PO SCH (08:35)
[2023-06-10] MEDS: ASCORBIC ACID 500 MG TAB PO SCH (08:35)
[2023-06-10] MEDS: DOCUSATE SODIUM 100MG CAPSULE PO SCH ×2 (08:35→20:34)
[2023-06-10] MEDS: MIDODRINE 5 MG TAB PO SCH ×3 (08:35→17:15)
[2023-06-10] MEDS: ENOXAPARIN 40MG/0.4ML SYRINGE (J1650 PER 10MG) SC SCH (08:36)
[2023-06-10] MEDS: CYANOCOBALAMIN 500 MCG TAB PO SCH (08:36)
[2023-06-10] MEDS: MIRALAX *UNIT DOSE* 17GM PACKET JT SCH (08:37)
[2023-06-10] MEDS: BISACODYL 10MG SUPP PR SCH ×2 (08:37→20:34)
[2023-06-10] MEDS: D5W/0.45% SODIUM CHLORIDE 1,000 ML IV SCH (18:43)
[2023-06-10] MEDS: DAPTOmycin 400 MG in NS 50 ML IV SCH (20:34)
[2023-06-10] MEDS: AMITRIPTYLINE 25MG TABLET PO SCH (20:34)
[2023-06-10] MEDS: FAMOTIDINE 20 MG TAB PO SCH (20:34)
[2023-06-11 05:48] VITALS: BP 100/48; TEMP 97.9; O2SAT 98
[2023-06-11 05:50] LABS: HEMATOCRIT 32.7 % (36.0-47.0); HEMOGLOBIN 10.6 g/dl (12.0-15.5); MEAN CORPUSCULAR HGB CONC 32.4 g/dl (32.0-36.5); MEAN CORPUSCULAR VOLUME 86.5 fl (80.0-96.0); PLATELET COUNT, AUTOMATED 250 10^3/uL (150-450); RED BLOOD COUNT 3.78 10^6/uL (4.00-5.40); WHITE BLOOD COUNT 5.8 10^3/uL (4.0-10.0)
[2023-06-11 06:16] LABS: BLOOD UREA NITROGEN 10 MG/DL (9-23); CALCIUM LEVEL 9.3 MG/DL (8.5-10.1); CARBON DIOXIDE LEVEL 26 MMOL/L (20-31); CHLORIDE LEVEL 104 MMOL/L (98-107); CREATININE FOR GFR 0.54 MG/DL (0.55-1.30); GLOMERULAR FILTRATION RATE > 60.0 (>60); GLUCOSE, FASTING 87 MG/DL (60-100); POTASSIUM SERUM 4.6 MMOL/L (3.5-5.1); SODIUM LEVEL 137 MMOL/L (136-145)
[2023-06-11] MEDS: ADVAIR HFA 230/21MCG INHALER INH SCH ×2 (07:15→20:07)
[2023-06-11] MEDS: ENOXAPARIN 40MG/0.4ML SYRINGE (J1650 PER 10MG) SC SCH (07:53)
[2023-06-11] MEDS: D5W/0.45% SODIUM CHLORIDE 1,000 ML IV SCH ×2 (07:53→21:40)
[2023-06-11] MEDS: MIRALAX *UNIT DOSE* 17GM PACKET JT SCH (07:53)
[2023-06-11] MEDS: BISACODYL 10MG SUPP PR SCH ×2 (07:53→20:42)
[2023-06-11] MEDS: CYANOCOBALAMIN 500 MCG TAB PO SCH (07:54)
[2023-06-11] MEDS: MIDODRINE 5 MG TAB PO SCH ×3 (07:54→15:39)
[2023-06-11] MEDS: DOCUSATE SODIUM 100MG CAPSULE PO SCH ×2 (07:54→20:42)
[2023-06-11] MEDS: ASCORBIC ACID 500 MG TAB PO SCH (07:54)
[2023-06-11] MEDS: FERROUS SULFATE 325MG TAB PO SCH (07:54)
[2023-06-11 14:00] VITALS: BP 94/54; TEMP 98.1; O2SAT 98
[2023-06-11] MEDS: AMITRIPTYLINE 25MG TABLET PO SCH (20:41)
[2023-06-11] MEDS: FAMOTIDINE 20 MG TAB PO SCH (20:42)
[2023-06-11] MEDS: DAPTOmycin 400 MG in NS 50 ML IV SCH (20:43)
[2023-06-11 21:18] VITALS: BP 98/60; TEMP 98.1; O2SAT 98
[2023-06-12 05:39] VITALS: BP 89/58; TEMP 97.9; O2SAT 98
[2023-06-12 05:57] LABS: HEMATOCRIT 31.9 % (36.0-47.0); HEMOGLOBIN 10.3 g/dl (12.0-15.5); MEAN CORPUSCULAR HGB CONC 32.3 g/dl (32.0-36.5); MEAN CORPUSCULAR VOLUME 86.7 fl (80.0-96.0); PLATELET COUNT, AUTOMATED 261 10^3/uL (150-450); RED BLOOD COUNT 3.68 10^6/uL (4.00-5.40); WHITE BLOOD COUNT 4.9 10^3/uL (4.0-10.0)
[2023-06-12 06:16] LABS: BLOOD UREA NITROGEN 9 MG/DL (9-23); CALCIUM LEVEL 8.6 MG/DL (8.5-10.1); CARBON DIOXIDE LEVEL 25 MMOL/L (20-31); CHLORIDE LEVEL 105 MMOL/L (98-107); GLOMERULAR FILTRATION RATE > 60.0 (>60); GLUCOSE, FASTING 88 MG/DL (60-100); POTASSIUM SERUM 4.2 MMOL/L (3.5-5.1); SODIUM LEVEL 139 MMOL/L (136-145)
[2023-06-12] MEDS: ADVAIR HFA 230/21MCG INHALER INH SCH ×2 (07:33→21:22)
[2023-06-12] MEDS: BISACODYL 10MG SUPP PR SCH ×2 (08:27→20:27)
[2023-06-12] MEDS: FERROUS SULFATE 325MG TAB PO SCH (08:27)
[2023-06-12] MEDS: MIDODRINE 5 MG TAB PO SCH ×3 (08:27→15:01)
[2023-06-12] MEDS: DOCUSATE SODIUM 100MG CAPSULE PO SCH ×2 (08:27→20:27)
[2023-06-12] MEDS: ASCORBIC ACID 500 MG TAB PO SCH (08:27)
[2023-06-12] MEDS: MIRALAX *UNIT DOSE* 17GM PACKET JT SCH (08:28)
[2023-06-12] MEDS: ENOXAPARIN 40MG/0.4ML SYRINGE (J1650 PER 10MG) SC SCH (08:28)
[2023-06-12] MEDS: CYANOCOBALAMIN 500 MCG TAB PO SCH (08:28)
[2023-06-12] MEDS: D5W/0.45% SODIUM CHLORIDE 1,000 ML IV SCH (11:53)
[2023-06-12 14:00] VITALS: BP 99/70; TEMP 98.1; O2SAT 97
[2023-06-12 20:00] VITALS: BP 105/72; TEMP 98.1; O2SAT 98
[2023-06-12] MEDS: AMITRIPTYLINE 25MG TABLET PO SCH (20:27)
[2023-06-12] MEDS: DAPTOmycin 400 MG in NS 50 ML IV SCH (20:27)
[2023-06-12] MEDS: FAMOTIDINE 20 MG TAB PO SCH (20:27)
[2023-06-13 06:00] VITALS: BP 96/68; TEMP 97.5; O2SAT 99
[2023-06-13 06:27] LABS: HEMATOCRIT 31.7 % (36.0-47.0); HEMOGLOBIN 10.1 g/dl (12.0-15.5); MEAN CORPUSCULAR HEMOGLOBIN 27.7 pg (27.0-33.0); MEAN CORPUSCULAR HGB CONC 31.9 g/dl (32.0-36.5); MEAN CORPUSCULAR VOLUME 86.8 fl (80.0-96.0); PLATELET COUNT, AUTOMATED 274 10^3/uL (150-450); RED BLOOD COUNT 3.65 10^6/uL (4.00-5.40); WHITE BLOOD COUNT 4.7 10^3/uL (4.0-10.0)
[2023-06-13 06:54] LABS: BLOOD UREA NITROGEN 10 MG/DL (9-23); CALCIUM LEVEL 8.7 MG/DL (8.5-10.1); CARBON DIOXIDE LEVEL 25 MMOL/L (20-31); CHLORIDE LEVEL 106 MMOL/L (98-107); CREATININE FOR GFR 0.49 MG/DL (0.55-1.30); GLOMERULAR FILTRATION RATE > 60.0 (>60); GLUCOSE, FASTING 87 MG/DL (60-100); POTASSIUM SERUM 3.9 MMOL/L (3.5-5.1); SODIUM LEVEL 140 MMOL/L (136-145)
[2023-06-13] MEDS: ADVAIR HFA 230/21MCG INHALER INH SCH ×2 (07:32→20:01)
[2023-06-13] MEDS: CYANOCOBALAMIN 500 MCG TAB PO SCH (08:45)
[2023-06-13] MEDS: ASCORBIC ACID 500 MG TAB PO SCH (08:45)
[2023-06-13] MEDS: DOCUSATE SODIUM 100MG CAPSULE PO SCH ×2 (08:45→20:14)
[2023-06-13] MEDS: MIDODRINE 5 MG TAB PO SCH ×3 (08:45→16:52)
[2023-06-13] MEDS: MIRALAX *UNIT DOSE* 17GM PACKET JT SCH (08:46)
[2023-06-13] MEDS: FERROUS SULFATE 325MG TAB PO SCH (08:46)
[2023-06-13] MEDS: BISACODYL 10MG SUPP PR SCH ×2 (08:57→20:14)
[2023-06-13] MEDS: D5W/0.45% SODIUM CHLORIDE 1,000 ML IV SCH ×2 (08:57→12:10)
[2023-06-13] MEDS: ENOXAPARIN 40MG/0.4ML SYRINGE (J1650 PER 10MG) SC SCH (08:57)
[2023-06-13] MEDS: SODIUM CHLORIDE 0.9% INJ 10 ML SYR IV SCH ×2 (14:00→22:07)
[2023-06-13] MEDS ORDERED: LIDOCAINE 1% MDV 20ML VIAL SC ONE (14:45)
[2023-06-13] MEDS ORDERED: SODIUM CHLORIDE 0.9% INJ 10 ML SYR IV PRN (14:45)
[2023-06-13] MEDS ORDERED: LIDOCAINE 1% MDV 20ML VIAL As Ordered ONE (14:51)
[2023-06-13 16:44] LABS: C REACTIVE PROTEIN QUANTITATIV < 0.40 MG/DL (<1.0)
[2023-06-13 18:00] VITALS: BP 118/72; TEMP 97.8; O2SAT 98
[2023-06-13 19:49] VITALS: BP 110/60; TEMP 98.4; O2SAT 96
[2023-06-13] MEDS: DAPTOmycin 400 MG in NS 50 ML IV SCH (20:13)
[2023-06-13] MEDS: FAMOTIDINE 20 MG TAB PO SCH (20:13)
[2023-06-13] MEDS: AMITRIPTYLINE 25MG TABLET PO SCH (20:14)
[2023-06-14] MEDS: D5W/0.45% SODIUM CHLORIDE 1,000 ML IV SCH ×2 (01:01→13:27)
[2023-06-14 04:00] VITALS: BP 96/58; TEMP 97.9; O2SAT 97
[2023-06-14 05:53] LABS: HEMATOCRIT 30.1 % (36.0-47.0); HEMOGLOBIN 9.7 g/dl (12.0-15.5); MEAN CORPUSCULAR HGB CONC 32.2 g/dl (32.0-36.5); PLATELET COUNT, AUTOMATED 275 10^3/uL (150-450); RED BLOOD COUNT 3.46 10^6/uL (4.00-5.40); WHITE BLOOD COUNT 4.4 10^3/uL (4.0-10.0)
[2023-06-14 06:08] LABS: PREALBUMIN 17.2 MG/DL (10.0-40.0)
[2023-06-14 06:09] LABS: BLOOD UREA NITROGEN 7 MG/DL (9-23); CALCIUM LEVEL 8.9 MG/DL (8.5-10.1); CARBON DIOXIDE LEVEL 26 MMOL/L (20-31); CHLORIDE LEVEL 104 MMOL/L (98-107); GLOMERULAR FILTRATION RATE > 60.0 (>60); GLUCOSE, FASTING 87 MG/DL (60-100); POTASSIUM SERUM 3.9 MMOL/L (3.5-5.1); SODIUM LEVEL 138 MMOL/L (136-145)
[2023-06-14] MEDS: SODIUM CHLORIDE 0.9% INJ 10 ML SYR IV SCH ×3 (06:10→20:21)
[2023-06-14] MEDS: ADVAIR HFA 230/21MCG INHALER INH SCH ×2 (08:00→20:51)
[2023-06-14] MEDS: MIRALAX *UNIT DOSE* 17GM PACKET JT SCH (09:20)
[2023-06-14] MEDS: ASCORBIC ACID 500 MG TAB PO SCH (09:21)
[2023-06-14] MEDS: DOCUSATE SODIUM 100MG CAPSULE PO SCH ×2 (09:21→20:20)
[2023-06-14] MEDS: FERROUS SULFATE 325MG TAB PO SCH (09:21)
[2023-06-14] MEDS: CYANOCOBALAMIN 500 MCG TAB PO SCH (09:21)
[2023-06-14] MEDS: ENOXAPARIN 40MG/0.4ML SYRINGE (J1650 PER 10MG) SC SCH (09:21)
[2023-06-14] MEDS: MIDODRINE 5 MG TAB PO SCH ×3 (09:21→17:19)
[2023-06-14] MEDS: BISACODYL 10MG SUPP PR SCH ×2 (09:21→20:20)
[2023-06-14 14:00] VITALS: BP 100/64; O2SAT 97
[2023-06-14] MEDS ORDERED: DAPT500V8 IV (16:54)
[2023-06-14] MEDS: INSULIN LISPRO (NovoLOG) PER UNIT SC SCH (17:49)
[2023-06-14] MEDS ORDERED: MULTIVITAMIN -ADULT INJECTION 10 ML, ZINC/COPPER/MANGANESE/SELENIUM 1 ML in AMINO AC/EL... IV SCH (18:00)
[2023-06-14] MEDS ORDERED: FAT EMULSION IV 250 ML IV ONE (18:00)
[2023-06-14 20:00] VITALS: BP 102/65; TEMP 98.1; O2SAT 95
[2023-06-14] MEDS: AMITRIPTYLINE 25MG TABLET PO SCH (20:20)
[2023-06-14] MEDS: FAMOTIDINE 20 MG TAB PO SCH (20:20)
[2023-06-14] MEDS: DAPTOmycin 400 MG in NS 50 ML IV SCH (20:22)
[2023-06-15] MEDS: D5W/0.45% SODIUM CHLORIDE 1,000 ML IV SCH (04:13)
[2023-06-15 05:57] LABS: HEMOGLOBIN 10.4 g/dl (12.0-15.5); MEAN CORPUSCULAR HEMOGLOBIN 28.7 pg (27.0-33.0); MEAN CORPUSCULAR HGB CONC 32.5 g/dl (32.0-36.5); MEAN CORPUSCULAR VOLUME 88.4 fl (80.0-96.0); PLATELET COUNT, AUTOMATED 297 10^3/uL (150-450); RED BLOOD COUNT 3.62 10^6/uL (4.00-5.40); WHITE BLOOD COUNT 3.9 10^3/uL (4.0-10.0)
[2023-06-15 06:00] VITALS: BP 90/60; TEMP 97.9; O2SAT 97
[2023-06-15] MEDS: INSULIN LISPRO (NovoLOG) PER UNIT SC SCH ×2 (06:00)
[2023-06-15 06:29] LABS: BLOOD UREA NITROGEN 7 MG/DL (9-23); CALCIUM LEVEL 8.6 MG/DL (8.5-10.1); CARBON DIOXIDE LEVEL 26 MMOL/L (20-31); CHLORIDE LEVEL 106 MMOL/L (98-107); CREATININE FOR GFR 0.42 MG/DL (0.55-1.30); GLOMERULAR FILTRATION RATE > 60.0 (>60); GLUCOSE, FASTING 116 MG/DL (60-100); SODIUM LEVEL 141 MMOL/L (136-145)
[2023-06-15] MEDS: SODIUM CHLORIDE 0.9% INJ 10 ML SYR IV SCH (06:56)
[2023-06-15] MEDS: ADVAIR HFA 230/21MCG INHALER INH SCH (08:07)
[2023-06-15] MEDS: ENOXAPARIN 40MG/0.4ML SYRINGE (J1650 PER 10MG) SC SCH (08:34)
[2023-06-15] MEDS: MIRALAX *UNIT DOSE* 17GM PACKET JT SCH (08:34)
[2023-06-15] MEDS: BISACODYL 10MG SUPP PR SCH (08:34)
[2023-06-15] MEDS: FERROUS SULFATE 325MG TAB PO SCH (08:34)
[2023-06-15] MEDS: CYANOCOBALAMIN 500 MCG TAB PO SCH (08:34)
[2023-06-15] MEDS: ASCORBIC ACID 500 MG TAB PO SCH (08:35)
[2023-06-15] MEDS: DOCUSATE SODIUM 100MG CAPSULE PO SCH (08:35)
[2023-06-15] MEDS: MIDODRINE 5 MG TAB PO SCH (08:37)
[2023-06-15] MEDS ORDERED: DAPT500V8 IV (12:31)
== END 2023-06-15 11:25 | disposition home health service (06) | DRG 721 ==
LOC: M ED 22:21 → M ED INP 06-05 05:48 → M PCU 06-05 08:53 → M MSPAV 06-06 14:36
PROVIDERS: ADMIT Internal Medicine; ATTEND General Practice
PROC: B246ZZZ Ultrasonography of Right and Left Heart (ICD-10-PCS; 2023-06-08)
PROC: 02HV33Z Insertion of Infusion Device into Superior Vena Cava, Percutaneous Approach (ICD-10-PCS; principal; 2023-06-08 15:30)
DX: T80.219A Unspecified infection due to central venous catheter, initial encounter (principal); A41.81 Sepsis due to Enterococcus; I33.0 Acute and subacute infective endocarditis; E46 Unspecified protein-calorie malnutrition; K31.84 Gastroparesis; Q79.60 Ehlers-Danlos syndrome, unspecified; G90.A Postural orthostatic tachycardia syndrome [POTS]; Z93.1 Gastrostomy status; E87.6 Hypokalemia; B34.8 Other viral infections of unspecified site; J45.909 Unspecified asthma, uncomplicated; T36.8X5A Adverse effect of other systemic antibiotics, initial encounter; Z79.01 Long term (current) use of anticoagulants; Z79.899 Other long term (current) drug therapy; Z88.1 Allergy status to other antibiotic agents; Z88.8 Allergy status to other drugs, medicaments and biological substances; Z20.822 Contact with and (suspected) exposure to COVID-19; R62.7 Adult failure to thrive

== ENCOUNTER → 2023-06-19 | Outpatient (REF) | payer BC ==
[~2023-06-19] MED LIST changes: -AMIT25TA17; +AMIT25TA19; +DAPT500V8 IV; +LEVA1.2519 INH; +TPN IV
[2023-06-19 15:04] LABS: HEMATOCRIT 34.8 % (36.0-47.0); HEMOGLOBIN 10.9 g/dl (12.0-15.5); MEAN CORPUSCULAR HEMOGLOBIN 28.5 pg (27.0-33.0); MEAN CORPUSCULAR HGB CONC 31.3 g/dl (32.0-36.5); MEAN CORPUSCULAR VOLUME 91.1 fl (80.0-96.0); PLATELET COUNT, AUTOMATED 306 10^3/uL (150-450); RED BLOOD COUNT 3.82 10^6/uL (4.00-5.40); WHITE BLOOD COUNT 5.1 10^3/uL (4.0-10.0)
[2023-06-19 15:31] LABS: ALKALINE PHOSPHATASE 66 U/L (46-116); ALT/SGPT 49 U/L (7.0-40); AST/SGOT 21 U/L (<34); BILIRUBIN,DIRECT 0.1 MG/DL (<0.4); BILIRUBIN,TOTAL 0.3 MG/DL (0.3-1.2); BLOOD UREA NITROGEN 13 MG/DL (9-23); CALCIUM LEVEL 8.9 MG/DL (8.5-10.1); CARBON DIOXIDE LEVEL 28 MMOL/L (20-31); CHLORIDE LEVEL 103 MMOL/L (98-107); CREATININE FOR GFR 0.56 MG/DL (0.55-1.30); GLOMERULAR FILTRATION RATE > 60.0 (>60); GLUCOSE, FASTING 67 MG/DL (60-100); POTASSIUM SERUM 3.7 MMOL/L (3.5-5.1); SODIUM LEVEL 141 MMOL/L (136-145); TOTAL PROTEIN 7.1 G/DL (5.7-8.2)
== END ==
LOC: M SHH 14:50
PROVIDERS: ATTEND Internal Medicine Gastroenterology
DX: R62.7 Adult failure to thrive (principal); K31.84 Gastroparesis

== ENCOUNTER → 2023-06-19 | Outpatient (REF) | payer BC ==
[~2023-06-19] MED LIST changes: +AMIT25TA17; -AMIT25TA19
[2023-06-19 15:04] LABS: BASO # 0.1 10^3/uL (0.0-0.2); BASO % 1.2 % (0.0-1.0); EOS # 0.4 10^3/uL (0.0-0.5); EOS % 8.1 % (0.0-3.0); HEMATOCRIT 35.2 % (36.0-47.0); LYMPH # 1.9 10^3/uL (1.5-5.0); LYMPH % 38.4 % (24.0-44.0); MEAN CORPUSCULAR HEMOGLOBIN 28.4 pg (27.0-33.0); MEAN CORPUSCULAR HGB CONC 31.3 g/dl (32.0-36.5); MONO # 0.3 10^3/uL (0.0-0.8); MONO % 6.5 % (2.0-8.0); NEUTROPHILS # 2.2 10^3/uL (1.5-8.5); NEUTROPHILS % 45.6 % (36.0-66.0); PLATELET COUNT, AUTOMATED 314 10^3/uL (150-450); RED BLOOD COUNT 3.87 10^6/uL (4.00-5.40); WHITE BLOOD COUNT 4.9 10^3/uL (4.0-10.0)
[2023-06-19 15:36] LABS: ERYTHROCYTE SEDIMENTATION RATE 32 mm/hr (0-20)
[2023-06-19 15:39] LABS: C REACTIVE PROTEIN QUANTITATIV < 0.40 MG/DL (<1.0)
[2023-06-19 15:41] LABS: CPK CREATINE PHOSPHOKINASE 25 U/L (34-145)
== END ==
LOC: M SHH 14:48
PROVIDERS: ATTEND Internal Medicine Infectious Disease
DX: T80.219D Unspecified infection due to central venous catheter, subsequent encounter (principal)

== ENCOUNTER 2023-06-26 10:53 | Inpatient (IN) | payer BC ==
[2023-06-26] VITALS (44 sets, daily range): BP systolic 67–127; BP diastolic 30–81; TEMP 98.1–98.4; O2SAT 92–100
[~2023-06-26] VITALS: Ht 162.6 cm; Wt 46.0 kg
[2023-06-26] MEDS ORDERED: NS 1,340 ML in IV 1 EA IV ONE (11:10)
[2023-06-26] MEDS ORDERED: CEFEPIME HCL 1 GM in D5W MINI-BAG PLUS 50 ML IV ONE ×2 (11:35→16:00)
[2023-06-26] MEDS ORDERED: MORPHINE 2 MG/ML 1ML VIAL IV ONE (11:35)
[2023-06-26] MEDS ORDERED: ONDANSETRON 4MG 2ML VIAL IV ONE (11:35)
[2023-06-26 11:42] LABS: HEMATOCRIT 33.3 % (36.0-47.0); MEAN CORPUSCULAR HEMOGLOBIN 28.4 pg (27.0-33.0); MEAN CORPUSCULAR VOLUME 85.8 fl (80.0-96.0); PLATELET COUNT, AUTOMATED 143 10^3/uL (150-450); RED BLOOD COUNT 3.88 10^6/uL (4.00-5.40); WHITE BLOOD COUNT 1.5 10^3/uL (4.0-10.0)
[2023-06-26 12:02] LABS: AMYLASE 100 U/L (30-118)
[2023-06-26 12:03] LABS: ALBUMIN 3.5 G/DL (3.2-5.2); ALKALINE PHOSPHATASE 80 U/L (46-116); ALT/SGPT 26 U/L (7.0-40); AST/SGOT 21 U/L (<34); BILIRUBIN,DIRECT 0.5 MG/DL (<0.4); BILIRUBIN,TOTAL 0.9 MG/DL (0.3-1.2); BLOOD UREA NITROGEN 15 MG/DL (9-23); CALCIUM LEVEL 8.7 MG/DL (8.5-10.1); CARBON DIOXIDE LEVEL 22 MMOL/L (20-31); CHLORIDE LEVEL 104 MMOL/L (98-107); CREATININE FOR GFR 1.07 MG/DL (0.55-1.30); GLOMERULAR FILTRATION RATE > 60.0 (>60); GLUCOSE, FASTING 103 MG/DL (60-100); POTASSIUM SERUM 3.3 MMOL/L (3.5-5.1); SODIUM LEVEL 136 MMOL/L (136-145); TOTAL PROTEIN 6.8 G/DL (5.7-8.2)
[2023-06-26 12:06] LABS: ATYPICAL LYMPH 1 % (0-5); BASOPHILS 2 % (0-1); LYMPHOCYTES 17 % (16-44); MONOCYTES 5 % (0-5); NEUTROPHILS 68 % (28-66); PLATELET ESTIMATE NORMAL (NORMAL)
[2023-06-26 12:07] LABS: RSV AMPLIFICATION NEGATIVE (NEGATIVE)
[2023-06-26 12:14] LABS: PROCALCITONIN 9.14 ng/ml
[2023-06-26] MEDS ORDERED: ACETAMINOPHEN 1000MG 100ML IV BAG IV ONE (12:30)
[2023-06-26 12:46] LABS: HCG, SERUM QUANTITATIVE 4.5 MIU/ML (<4.2)
[2023-06-26] MEDS ORDERED: NS 500 ML IV ONE (13:20)
[2023-06-26 14:46] LABS: APPEARANCE, URINE CLOUDY (CLEAR); BACTERIA, URINE AUTO 2+ (NEGATIVE); BILIRUBIN, URINE AUTO NEGATIVE (NEGATIVE); BLOOD, URINE BLOOD 3+ (NEGATIVE); COLOR, URINE YELLOW (YELLOW); GLUCOSE, URINE (UA) AUTO NEGATIVE (NEGATIVE); KETONE, URINE AUTO NEGATIVE (NEGATIVE); LEUKOCYTE ESTERASE, URINE AUTO 2+ (NEGATIVE); MUCUS, URINE SMALL (NEGATIVE); NITRITE, URINE AUTO NEGATIVE (NEGATIVE); PROTEIN, URINE AUTO 2+ mg/dL (NEGATIVE); RBC, URINE AUTO TNTC /HPF (0-3); SQUAMOUS EPITHELIAL CELL UR AU 26 /HPF (0-6); UROBILINOGEN, URINE AUTO 0.2 mg/dL (0.0-2.0); WBC, URINE AUTO 76 /HPF (0-3)
[2023-06-26] MEDS ORDERED: MED REC IN PROGRESS XX SCH (14:55)
[2023-06-26] MEDS ORDERED: LR 1,000 ML IV ONE ×2 (15:15→17:30)
[2023-06-26] MEDS ORDERED: SODIUM CHLORIDE 0.9% INJ 10 ML SYR IV PRN (15:20)
[2023-06-26] MEDS ORDERED: ISOVUE-370 76% 100ML VIAL As Ordered ONE ×2 (15:33→16:45)
[2023-06-26] MEDS ORDERED: DAPT500V8 IV (15:38)
[2023-06-26] MEDS ORDERED: HOME MED LIST COMPLETE! XX SCH (15:40)
[2023-06-26 16:35] LABS: MAGNESIUM LEVEL 1.4 MG/DL (1.8-2.4)
[2023-06-26 16:37] LABS: IMMUNOGLOBULIN A 78.5 MG/DL (40-350)
[2023-06-26 16:40] LABS: IMMUNOGLOBULIN E 54.6 IU/ML (0-378)
[2023-06-26] MEDS ORDERED: HYDROCORTISONE 100MG/2ML VIAL IV ONE (17:00)
[2023-06-26 17:02] LABS: HIV 1&2 SCREEN NEGATIVE (NEGATIVE)
[2023-06-26] MEDS: KCL 10MEQ/100ML SWI (KRUN) 10 MEQ in IV 1 EA IV SCH ×2 (17:07→17:52)
[2023-06-26] MEDS ORDERED: SUMAtriptan SUCCINATE 25 MG TAB PO PRN (17:10)
[2023-06-26] MEDS ORDERED: LEVALBUTEROL HFA 45MCG/ACT 15GM INHALER INH PRN (17:10)
[2023-06-26] MEDS ORDERED: MAG SULF 1GM/100ML (MAG RUN) 1 GM in IV 1 EA IV ONE ×2 (17:10→19:00)
[2023-06-26] MEDS: MIDODRINE 5 MG TAB PO SCH (17:51)
[2023-06-26] MEDS: CEFEPIME HCL 2 GM in D5W MINI-BAG PLUS 50 ML IV SCH (17:52)
[2023-06-26] MEDS: LR 1,000 ML IV SCH (17:53)
[2023-06-26] MEDS: NOREPINEPHRINE 4MG IN D5 250ML 4 MG in IV 1 EA IV SCH ×2 (18:21)
[2023-06-26 18:48] LABS: PHOSPHORUS LEVEL 1.5 MG/DL (2.5-4.9)
[2023-06-26] MEDS: ADVAIR HFA 230/21MCG INHALER INH SCH (19:14)
[2023-06-26] MEDS: FAMOTIDINE 20 MG TAB PO SCH (20:09)
[2023-06-26] MEDS: MICAFUNGIN SODIUM 100 MG in D5W MINI-BAG PLUS 100 ML IV SCH (20:09)
[2023-06-26] MEDS: AMITRIPTYLINE 25MG TABLET PO SCH (20:09)
[2023-06-26] MEDS ORDERED: DAPTOMYCIN IV SCH (21:00)
[2023-06-26] MEDS: HEPARIN SOD (PORCINE) 5000UNITS/ML 1ML VIAL/SYRINGE SC SCH (22:00)
[2023-06-26] MEDS: SODIUM CHLORIDE 0.9% INJ 10 ML SYR IV SCH (22:00)
[2023-06-26] MEDS: DAPTOmycin 400 MG in NS 50 ML IV SCH (23:28)
[2023-06-27] VITALS (97 sets, daily range): BP systolic 77–131; BP diastolic 38–81; TEMP 98.9–103; O2SAT 95–100
[2023-06-27] MEDS: LR 1,000 ML IV SCH ×3 (01:24→19:45)
[2023-06-27] MEDS: NOREPINEPHRINE 4MG IN D5 250ML 4 MG in IV 1 EA IV SCH ×2 (02:27)
[2023-06-27] MEDS ORDERED: MORPHINE 4 MG/ML 1ML VIAL IV ONE (04:45)
[2023-06-27 05:00] LABS: HEMATOCRIT 29.4 % (36.0-47.0); HEMOGLOBIN 10.1 g/dl (12.0-15.5); MEAN CORPUSCULAR HEMOGLOBIN 28.7 pg (27.0-33.0); MEAN CORPUSCULAR HGB CONC 34.4 g/dl (32.0-36.5); MEAN CORPUSCULAR VOLUME 83.5 fl (80.0-96.0); RED BLOOD COUNT 3.52 10^6/uL (4.00-5.40); WHITE BLOOD COUNT 11.4 10^3/uL (4.0-10.0)
[2023-06-27] MEDS ORDERED: ACETAMINOPHEN 1000MG 100ML IV BAG IV ONE (05:15)
[2023-06-27] MEDS: CEFEPIME HCL 2 GM in D5W MINI-BAG PLUS 50 ML IV SCH ×3 (05:19→21:00)
[2023-06-27 05:24] LABS: ALKALINE PHOSPHATASE 99 U/L (46-116); ALT/SGPT 104 U/L (7.0-40); AST/SGOT 180 U/L (<34); BILIRUBIN,TOTAL 1.8 MG/DL (0.3-1.2); BLOOD UREA NITROGEN 15 MG/DL (9-23); CALCIUM LEVEL 8.4 MG/DL (8.5-10.1); CARBON DIOXIDE LEVEL 22 MMOL/L (20-31); CHLORIDE LEVEL 107 MMOL/L (98-107); CREATININE FOR GFR 0.74 MG/DL (0.55-1.30); GLOMERULAR FILTRATION RATE > 60.0 (>60); GLUCOSE, FASTING 144 MG/DL (60-100); MAGNESIUM LEVEL 1.6 MG/DL (1.8-2.4); POTASSIUM SERUM 3.8 MMOL/L (3.5-5.1); SODIUM LEVEL 138 MMOL/L (136-145); TOTAL PROTEIN 5.8 G/DL (5.7-8.2)
[2023-06-27] MEDS: SODIUM CHLORIDE 0.9% INJ 10 ML SYR IV SCH ×3 (05:41→22:00)
[2023-06-27 05:50] LABS: PLATELET COUNT, AUTOMATED 91 10^3/uL (150-450)
[2023-06-27] MEDS: MAG SULF 1GM/100ML (MAG RUN) 1 GM in IV 1 EA IV SCH ×3 (05:54→08:32)
[2023-06-27] MEDS: HEPARIN SOD (PORCINE) 5000UNITS/ML 1ML VIAL/SYRINGE SC SCH (05:58)
[2023-06-27 07:08] LABS: ATYPICAL LYMPH 1 % (0-5); LYMPHOCYTES 1 % (16-44); METAMYELOCYTES 1 % (0-0); MONOCYTES 3 % (0-5); NEUTROPHILS 87 % (28-66); PLATELET ESTIMATE DECREASED (NORMAL)
[2023-06-27 07:09] LABS: TOXIC VACUOLATION 1+
[2023-06-27] MEDS ORDERED: NOREPINEPHRINE 4MG IN D5 250ML 4 MG in IV 1 EA IV SCH ×2 (07:13)
[2023-06-27] MEDS: ADVAIR HFA 230/21MCG INHALER INH SCH ×2 (07:31→20:07)
[2023-06-27] MEDS: PANTOPRAZOLE 40MG VIAL IV SCH (08:31)
[2023-06-27] MEDS: ENOXAPARIN 30MG/0.3ML SYRINGE (J1650 PER 10MG) SC SCH (08:32)
[2023-06-27] MEDS: MIDODRINE 5 MG TAB PO SCH ×3 (08:32→16:15)
[2023-06-27] MEDS: CYANOCOBALAMIN 500 MCG TAB PO SCH (08:32)
[2023-06-27] MEDS: ASCORBIC ACID 500 MG TAB PO SCH (08:32)
[2023-06-27] MEDS: FERROUS SULFATE 325MG TAB PO SCH (08:32)
[2023-06-27] MEDS: BISACODYL 10MG SUPP PR SCH (08:33)
[2023-06-27] MEDS ORDERED: SODIUM CHLORIDE 0.9% INJ 10 ML SYR IV PRN (10:25)
[2023-06-27] MEDS: ACETAMINOPHEN 1000MG 100ML IV BAG IV PRN (16:33)
[2023-06-27] MEDS ORDERED: NS 1,000 ML IV ONE (18:35)
[2023-06-27] MEDS: MICAFUNGIN SODIUM 100 MG in D5W MINI-BAG PLUS 100 ML IV SCH (19:38)
[2023-06-27] MEDS: ONDANSETRON 4MG TAB PO PRN (19:38)
[2023-06-27] MEDS: NYSTATIN OINTMENT 15 GM TOP SCH (20:59)
[2023-06-27] MEDS: AMITRIPTYLINE 25MG TABLET PO SCH (20:59)
[2023-06-27] MEDS: FAMOTIDINE 20 MG TAB PO SCH (21:00)
[2023-06-27] MEDS: DAPTOmycin 400 MG in NS 50 ML IV SCH (21:52)
[2023-06-28] VITALS (71 sets, daily range): BP systolic 76–112; BP diastolic 41–66; TEMP 97.5–98.9; O2SAT 96–100
[2023-06-28] MEDS: ACETAMINOPHEN 1000MG 100ML IV BAG IV PRN ×3 (00:04→19:37)
[2023-06-28] MEDS: CEFEPIME HCL 2 GM in D5W MINI-BAG PLUS 50 ML IV SCH (04:32)
[2023-06-28 04:52] LABS: HEMATOCRIT 27.7 % (36.0-47.0); HEMOGLOBIN 9.2 g/dl (12.0-15.5); MEAN CORPUSCULAR HEMOGLOBIN 28.4 pg (27.0-33.0); MEAN CORPUSCULAR HGB CONC 33.2 g/dl (32.0-36.5); MEAN CORPUSCULAR VOLUME 85.5 fl (80.0-96.0); RED BLOOD COUNT 3.24 10^6/uL (4.00-5.40); WHITE BLOOD COUNT 10.2 10^3/uL (4.0-10.0)
[2023-06-28 05:05] LABS: PLATELET COUNT, AUTOMATED 66 10^3/uL (150-450)
[2023-06-28 05:19] LABS: ALBUMIN 2.4 G/DL (3.2-5.2); ALKALINE PHOSPHATASE 101 U/L (46-116); ALT/SGPT 71 U/L (7.0-40); AST/SGOT 98 U/L (<34); BILIRUBIN,TOTAL 0.8 MG/DL (0.3-1.2); BLOOD UREA NITROGEN 13 MG/DL (9-23); CARBON DIOXIDE LEVEL 24 MMOL/L (20-31); CHLORIDE LEVEL 110 MMOL/L (98-107); CREATININE FOR GFR 0.66 MG/DL (0.55-1.30); GLOMERULAR FILTRATION RATE > 60.0 (>60); GLUCOSE, FASTING 95 MG/DL (60-100); POTASSIUM SERUM 4.1 MMOL/L (3.5-5.1); SODIUM LEVEL 141 MMOL/L (136-145)
[2023-06-28] MEDS: LR 1,000 ML IV SCH (05:26)
[2023-06-28] MEDS: SODIUM CHLORIDE 0.9% INJ 10 ML SYR IV SCH ×3 (05:26→22:00)
[2023-06-28] MEDS: NOREPINEPHRINE 4MG IN D5 250ML 4 MG in IV 1 EA IV SCH ×2 (05:26)
[2023-06-28 05:54] LABS: LYMPHOCYTES 11 % (16-44); MONOCYTES 5 % (0-5); NEUTROPHILS 69 % (28-66); PLATELET ESTIMATE MARKED DECREASE (NORMAL)
[2023-06-28 05:55] LABS: ANISOCYTOSIS 1+; HYPOCHROMASIA 2+
[2023-06-28 06:57] LABS: MAGNESIUM LEVEL 1.9 MG/DL (1.8-2.4)
[2023-06-28] MEDS: ADVAIR HFA 230/21MCG INHALER INH SCH ×2 (07:39→20:21)
[2023-06-28] MEDS: ENOXAPARIN 30MG/0.3ML SYRINGE (J1650 PER 10MG) SC SCH (09:00)
[2023-06-28] MEDS: FERROUS SULFATE 325MG TAB PO SCH (09:27)
[2023-06-28] MEDS: ASCORBIC ACID 500 MG TAB PO SCH (09:27)
[2023-06-28] MEDS: CYANOCOBALAMIN 500 MCG TAB PO SCH (09:27)
[2023-06-28] MEDS: PANTOPRAZOLE 40MG VIAL IV SCH (09:27)
[2023-06-28] MEDS: BISACODYL 10MG SUPP PR SCH (09:27)
[2023-06-28] MEDS: NYSTATIN OINTMENT 15 GM TOP SCH ×2 (09:28→20:43)
[2023-06-28] MEDS: MIDODRINE 5 MG TAB PO SCH ×3 (09:30→16:37)
[2023-06-28] MEDS ORDERED: MEROPENEM INJ 2 GM in NS 100 ML IV SCH (12:35)
[2023-06-28] MEDS: ONDANSETRON 4MG TAB PO PRN (12:58)
[2023-06-28] MEDS ORDERED: PROHANCE 279.3MG/ML 5ML VIAL As Ordered ONE (14:30)
[2023-06-28] MEDS: MEROPENEM INJ 1 GM in IV 1 EA IV SCH ×4 (15:45→23:20)
[2023-06-28] MEDS: DOXYCYCLINE HYCLATE 100 MG in D5W MINI-BAG PLUS 100 ML IV SCH (16:37)
[2023-06-28] MEDS ORDERED: FAT EMULSION IV 250 ML IV SCH (18:00)
[2023-06-28] MEDS ORDERED: MULTIVITAMIN -ADULT INJECTION 10 ML, ZINC/COPPER/MANGANESE/SELENIUM 1 ML in AMINO AC/EL... IV SCH (18:00)
[2023-06-28] MEDS: INSULIN LISPRO (NovoLOG) PER UNIT SC SCH (18:00)
[2023-06-28 18:08] LABS: ABG BASE EXCESS -2.3 (-2.0-2.0); ABG HCO3 22.2 MMOL/L (22.0-26.0); ABG O2 SATURATION 97.6 % (95.0-99.0); ABG PARTIAL PRESSURE CO2 36.8 mmHg (35.0-45.0); ABG PARTIAL PRESSURE O2 96.8 mmHg (75.0-100.0); ABG STANDARD HCO3 22.6 MMOL/L. (22.0-26.0); ABG TOTAL CO2 23.3 MMOL/L (22.0-29.0); ABG pH (ARTERIAL) 7.398 UNITS (7.350-7.450)
[2023-06-28] MEDS: MICAFUNGIN SODIUM 100 MG in D5W MINI-BAG PLUS 100 ML IV SCH (19:31)
[2023-06-28] MEDS: FAMOTIDINE 20 MG TAB PO SCH (20:43)
[2023-06-28] MEDS: AMITRIPTYLINE 25MG TABLET PO SCH (20:43)
[2023-06-28] MEDS: DAPTOmycin 400 MG in NS 50 ML IV SCH (21:58)
[2023-06-29] VITALS (24 sets, daily range): BP systolic 80–98; BP diastolic 42–59; TEMP 97.3–98.4; O2SAT 96–100
[2023-06-29] MEDS: INSULIN LISPRO (NovoLOG) PER UNIT SC SCH ×5 (00:17→23:00)
[2023-06-29] MEDS: DOXYCYCLINE HYCLATE 100 MG in D5W MINI-BAG PLUS 100 ML IV SCH ×2 (02:07→16:01)
[2023-06-29 04:38] LABS: HEMATOCRIT 28.6 % (36.0-47.0); HEMOGLOBIN 9.4 g/dl (12.0-15.5); MEAN CORPUSCULAR HEMOGLOBIN 28.7 pg (27.0-33.0); MEAN CORPUSCULAR HGB CONC 32.9 g/dl (32.0-36.5); MEAN CORPUSCULAR VOLUME 87.2 fl (80.0-96.0); RED BLOOD COUNT 3.28 10^6/uL (4.00-5.40); WHITE BLOOD COUNT 9.7 10^3/uL (4.0-10.0)
[2023-06-29 04:40] LABS: PLATELET COUNT, AUTOMATED 73 10^3/uL (150-450)
[2023-06-29 04:52] LABS: ALBUMIN 2.5 G/DL (3.2-5.2); ALKALINE PHOSPHATASE 129 U/L (46-116); ALT/SGPT 60 U/L (7.0-40); AST/SGOT 58 U/L (<34); BILIRUBIN,TOTAL 0.5 MG/DL (0.3-1.2); BLOOD UREA NITROGEN 10 MG/DL (9-23); CALCIUM LEVEL 8.5 MG/DL (8.5-10.1); CARBON DIOXIDE LEVEL 22 MMOL/L (20-31); CHLORIDE LEVEL 111 MMOL/L (98-107); CREATININE FOR GFR 0.56 MG/DL (0.55-1.30); GLOMERULAR FILTRATION RATE > 60.0 (>60); GLUCOSE, FASTING 154 MG/DL (60-100); POTASSIUM SERUM 3.8 MMOL/L (3.5-5.1); SODIUM LEVEL 140 MMOL/L (136-145); TOTAL PROTEIN 5.2 G/DL (5.7-8.2)
[2023-06-29] MEDS: MEROPENEM INJ 1 GM in IV 1 EA IV SCH ×4 (05:05→15:13)
[2023-06-29 05:13] LABS: EOSINOPHILS 2 % (0-3); LYMPHOCYTES 8 % (16-44); MONOCYTES 1 % (0-5); MYELOCYTES 1 % (0-0); NEUTROPHILS 80 % (28-66)
[2023-06-29 05:14] LABS: PLATELET ESTIMATE DECREASED (NORMAL)
[2023-06-29] MEDS: SODIUM CHLORIDE 0.9% INJ 10 ML SYR IV SCH ×3 (06:00→23:00)
[2023-06-29] MEDS: ADVAIR HFA 230/21MCG INHALER INH SCH ×2 (07:33→20:46)
[2023-06-29] MEDS: ENOXAPARIN 30MG/0.3ML SYRINGE (J1650 PER 10MG) SC SCH (08:48)
[2023-06-29] MEDS: ASCORBIC ACID 500 MG TAB PO SCH (08:49)
[2023-06-29] MEDS: FERROUS SULFATE 325MG TAB PO SCH (08:49)
[2023-06-29] MEDS: MIDODRINE 5 MG TAB PO SCH ×3 (08:49→15:13)
[2023-06-29] MEDS: PANTOPRAZOLE 40MG VIAL IV SCH (08:49)
[2023-06-29] MEDS: NYSTATIN OINTMENT 15 GM TOP SCH ×2 (08:49→20:59)
[2023-06-29] MEDS: CYANOCOBALAMIN 500 MCG TAB PO SCH (08:49)
[2023-06-29] MEDS: BISACODYL 10MG SUPP PR SCH (08:50)
[2023-06-29] MEDS: NOREPINEPHRINE 4MG IN D5 250ML 4 MG in IV 1 EA IV SCH ×2 (14:46)
[2023-06-29 15:22] LABS: PHOSPHORUS LEVEL 2.7 MG/DL (2.5-4.9)
[2023-06-29] MEDS ORDERED: POTASSIUM PHOSPHATE IV SCH (18:00)
[2023-06-29] MEDS ORDERED: AMINO AC IV SCH (18:00)
[2023-06-29] MEDS ORDERED: DEX IV SCH (18:00)
[2023-06-29] MEDS ORDERED: ELECTROLYTE IV SCH (18:00)
[2023-06-29] MEDS ORDERED: CALC IV SCH (18:00)
[2023-06-29] MEDS ORDERED: FAT EMULSION IV 250 ML IV ONE (18:00)
[2023-06-29] MEDS: MICAFUNGIN SODIUM 100 MG in D5W MINI-BAG PLUS 100 ML IV SCH (19:49)
[2023-06-29] MEDS: FAMOTIDINE 20 MG TAB PO SCH (20:58)
[2023-06-29] MEDS: AMITRIPTYLINE 25MG TABLET PO SCH (20:58)
[2023-06-29] MEDS: DAPTOmycin 400 MG in NS 50 ML IV SCH (22:09)
[2023-06-30 02:00] VITALS: BP 89/52; O2SAT 98
[2023-06-30] MEDS: DOXYCYCLINE HYCLATE 100 MG in D5W MINI-BAG PLUS 100 ML IV SCH ×2 (02:03→15:25)
[2023-06-30 04:00] VITALS: BP 89/51; TEMP 97.1; O2SAT 96
[2023-06-30 04:20] LABS: BASO % 0.4 % (0.0-1.0); EOS # 0.2 10^3/uL (0.0-0.5); EOS % 2.2 % (0.0-3.0); HEMATOCRIT 31.7 % (36.0-47.0); HEMOGLOBIN 10.1 g/dl (12.0-15.5); LYMPH # 1.4 10^3/uL (1.5-5.0); LYMPH % 19.8 % (24.0-44.0); MEAN CORPUSCULAR HEMOGLOBIN 27.8 pg (27.0-33.0); MEAN CORPUSCULAR HGB CONC 31.9 g/dl (32.0-36.5); MEAN CORPUSCULAR VOLUME 87.3 fl (80.0-96.0); MONO # 0.4 10^3/uL (0.0-0.8); MONO % 5.2 % (2.0-8.0); NEUTROPHILS # 4.9 10^3/uL (1.5-8.5); NEUTROPHILS % 71.1 % (36.0-66.0); RED BLOOD COUNT 3.63 10^6/uL (4.00-5.40); WHITE BLOOD COUNT 6.9 10^3/uL (4.0-10.0)
[2023-06-30 04:21] LABS: PLATELET COUNT, AUTOMATED 86 10^3/uL (150-450)
[2023-06-30 04:47] LABS: PROCALCITONIN 14.04 ng/ml
[2023-06-30 04:56] LABS: ALKALINE PHOSPHATASE 237 U/L (46-116); ALT/SGPT 65 U/L (7.0-40); AST/SGOT 45 U/L (<34); BILIRUBIN,TOTAL 0.5 MG/DL (0.3-1.2); BLOOD UREA NITROGEN 10 MG/DL (9-23); CALCIUM LEVEL 8.8 MG/DL (8.5-10.1); CARBON DIOXIDE LEVEL 25 MMOL/L (20-31); CHLORIDE LEVEL 105 MMOL/L (98-107); CREATININE FOR GFR 0.48 MG/DL (0.55-1.30); GLOMERULAR FILTRATION RATE > 60.0 (>60); GLUCOSE, FASTING 156 MG/DL (60-100); SODIUM LEVEL 138 MMOL/L (136-145); TOTAL PROTEIN 6.6 G/DL (5.7-8.2)
[2023-06-30] MEDS: SODIUM CHLORIDE 0.9% INJ 10 ML SYR IV SCH ×3 (05:56→21:05)
[2023-06-30] MEDS: INSULIN LISPRO (NovoLOG) PER UNIT SC SCH ×3 (05:56→18:54)
[2023-06-30] MEDS: ADVAIR HFA 230/21MCG INHALER INH SCH ×2 (07:19→19:59)
[2023-06-30 08:00] VITALS: BP 93/55; O2SAT 98
[2023-06-30] MEDS: MIDODRINE 5 MG TAB PO SCH ×3 (08:59→15:26)
[2023-06-30] MEDS: BISACODYL 10MG SUPP PR SCH (08:59)
[2023-06-30] MEDS: FERROUS SULFATE 325MG TAB PO SCH (08:59)
[2023-06-30] MEDS: ASCORBIC ACID 500 MG TAB PO SCH (08:59)
[2023-06-30] MEDS: CYANOCOBALAMIN 500 MCG TAB PO SCH (08:59)
[2023-06-30] MEDS: ENOXAPARIN 30MG/0.3ML SYRINGE (J1650 PER 10MG) SC SCH (09:00)
[2023-06-30] MEDS: PANTOPRAZOLE 40MG VIAL IV SCH (09:04)
[2023-06-30] MEDS: NYSTATIN OINTMENT 15 GM TOP SCH ×2 (09:04→21:06)
[2023-06-30 12:00] VITALS: BP 95/67; TEMP 97.9; O2SAT 94
[2023-06-30 15:33] VITALS: BP 103/65; TEMP 97.3; O2SAT 97
[2023-06-30] MEDS ORDERED: FAT EMULSION IV 250 ML IV ONE (18:00)
[2023-06-30] MEDS ORDERED: MULTIVITAMIN -ADULT INJECTION 10 ML, ZINC/COPPER/MANGANESE/SELENIUM 1 ML, POTASSIUM CHL... IV SCH ×4 (18:00)
[2023-06-30] MEDS: NOREPINEPHRINE 4MG IN D5 250ML 4 MG in IV 1 EA IV SCH ×2 (18:15)
[2023-06-30] MEDS ORDERED: PROHANCE 279.3MG/ML 5ML VIAL As Ordered ONE (18:15)
[2023-06-30] MEDS: MICAFUNGIN SODIUM 100 MG in D5W MINI-BAG PLUS 100 ML IV SCH (19:54)
[2023-06-30 20:00] VITALS: BP 103/56; TEMP 97.6; O2SAT 95
[2023-06-30] MEDS: FAMOTIDINE 20 MG TAB PO SCH (21:04)
[2023-06-30] MEDS: AMITRIPTYLINE 25MG TABLET PO SCH (21:04)
[2023-06-30] MEDS: DAPTOmycin 400 MG in NS 50 ML IV SCH (21:04)
[2023-07-01] VITALS: BP 107/62; TEMP 97.4; O2SAT 96
[2023-07-01] MEDS: INSULIN LISPRO (NovoLOG) PER UNIT SC SCH ×4 (00:47→17:13)
[2023-07-01] MEDS: DOXYCYCLINE HYCLATE 100 MG in D5W MINI-BAG PLUS 100 ML IV SCH ×2 (03:10→14:13)
[2023-07-01 04:00] VITALS: BP 94/50; TEMP 97.2; O2SAT 95
[2023-07-01 05:02] LABS: HEMATOCRIT 32.8 % (36.0-47.0); HEMOGLOBIN 10.6 g/dl (12.0-15.5); MEAN CORPUSCULAR HEMOGLOBIN 28.3 pg (27.0-33.0); MEAN CORPUSCULAR HGB CONC 32.3 g/dl (32.0-36.5); MEAN CORPUSCULAR VOLUME 87.7 fl (80.0-96.0); PLATELET COUNT, AUTOMATED 112 10^3/uL (150-450); RED BLOOD COUNT 3.74 10^6/uL (4.00-5.40); WHITE BLOOD COUNT 6.1 10^3/uL (4.0-10.0)
[2023-07-01 05:16] LABS: ALBUMIN 3.3 G/DL (3.2-5.2); ALKALINE PHOSPHATASE 267 U/L (46-116); ALT/SGPT 85 U/L (7.0-40); AST/SGOT 69 U/L (<34); BILIRUBIN,TOTAL 0.3 MG/DL (0.3-1.2); BLOOD UREA NITROGEN 12 MG/DL (9-23); CALCIUM LEVEL 8.7 MG/DL (8.5-10.1); CARBON DIOXIDE LEVEL 27 MMOL/L (20-31); CHLORIDE LEVEL 104 MMOL/L (98-107); CREATININE FOR GFR 0.42 MG/DL (0.55-1.30); GLOMERULAR FILTRATION RATE > 60.0 (>60); GLUCOSE, FASTING 158 MG/DL (60-100); POTASSIUM SERUM 4.3 MMOL/L (3.5-5.1); SODIUM LEVEL 137 MMOL/L (136-145); TOTAL PROTEIN 6.8 G/DL (5.7-8.2)
[2023-07-01] MEDS: SODIUM CHLORIDE 0.9% INJ 10 ML SYR IV SCH ×3 (06:03→21:12)
[2023-07-01 06:14] LABS: ATYPICAL LYMPH 1 % (0-5); BASOPHILS 1 % (0-1); EOSINOPHILS 6 % (0-3); LYMPHOCYTES 38 % (16-44); MONOCYTES 13 % (0-5); NEUTROPHILS 40 % (28-66)
[2023-07-01 06:15] LABS: PLATELET ESTIMATE DECREASED (NORMAL)
[2023-07-01 06:16] LABS: ANISOCYTOSIS 1+; MICROCYTOSIS 1+
[2023-07-01] MEDS: ADVAIR HFA 230/21MCG INHALER INH SCH ×2 (07:17→19:43)
[2023-07-01 08:00] VITALS: BP 102/61; TEMP 97.5; O2SAT 96
[2023-07-01] MEDS: BISACODYL 10MG SUPP PR SCH (08:16)
[2023-07-01] MEDS: MIDODRINE 5 MG TAB PO SCH ×3 (08:16→15:22)
[2023-07-01] MEDS: ENOXAPARIN 30MG/0.3ML SYRINGE (J1650 PER 10MG) SC SCH (08:16)
[2023-07-01] MEDS: ASCORBIC ACID 500 MG TAB PO SCH (08:17)
[2023-07-01] MEDS: FERROUS SULFATE 325MG TAB PO SCH (08:17)
[2023-07-01] MEDS: PANTOPRAZOLE 40MG VIAL IV SCH (08:17)
[2023-07-01] MEDS: CYANOCOBALAMIN 500 MCG TAB PO SCH (08:17)
[2023-07-01] MEDS: NYSTATIN OINTMENT 15 GM TOP SCH ×2 (08:18→20:26)
[2023-07-01 12:00] VITALS: BP 100/72; TEMP 97.6; O2SAT 97
[2023-07-01 16:00] VITALS: BP 89/65; TEMP 98.1; O2SAT 97
[2023-07-01] MEDS: NOREPINEPHRINE 4MG IN D5 250ML 4 MG in IV 1 EA IV SCH ×2 (17:04)
[2023-07-01] MEDS ORDERED: FAT EMULSION IV 250 ML IV ONE (18:00)
[2023-07-01] MEDS ORDERED: AMINO AC/ELECTROLYTE/DEX/CALC 2,000 ML IV SCH (18:00)
[2023-07-01] MEDS: MICAFUNGIN SODIUM 100 MG in D5W MINI-BAG PLUS 100 ML IV SCH (19:23)
[2023-07-01 20:00] VITALS: BP 94/59; TEMP 97.8; O2SAT 96
[2023-07-01] MEDS: FAMOTIDINE 20 MG TAB PO SCH (20:25)
[2023-07-01] MEDS: AMITRIPTYLINE 25MG TABLET PO SCH (20:25)
[2023-07-01] MEDS: DAPTOmycin 400 MG in NS 50 ML IV SCH (21:12)
[2023-07-02] VITALS: BP 97/55; TEMP 97.2; O2SAT 97
[2023-07-02] MEDS: INSULIN LISPRO (NovoLOG) PER UNIT SC SCH ×5 (00:31→23:43)
[2023-07-02] MEDS: DOXYCYCLINE HYCLATE 100 MG in D5W MINI-BAG PLUS 100 ML IV SCH ×2 (03:20→15:17)
[2023-07-02 04:00] VITALS: BP 95/53; TEMP 98; O2SAT 96
[2023-07-02 05:52] LABS: HEMATOCRIT 31.2 % (36.0-47.0); MEAN CORPUSCULAR HEMOGLOBIN 28.2 pg (27.0-33.0); MEAN CORPUSCULAR HGB CONC 32.1 g/dl (32.0-36.5); MEAN CORPUSCULAR VOLUME 88.1 fl (80.0-96.0); PLATELET COUNT, AUTOMATED 161 10^3/uL (150-450); RED BLOOD COUNT 3.54 10^6/uL (4.00-5.40); WHITE BLOOD COUNT 6.8 10^3/uL (4.0-10.0)
[2023-07-02 06:02] LABS: ALBUMIN 3.2 G/DL (3.2-5.2); ALKALINE PHOSPHATASE 220 U/L (46-116); ALT/SGPT 82 U/L (7.0-40); AST/SGOT 58 U/L (<34); BILIRUBIN,TOTAL 0.3 MG/DL (0.3-1.2); BLOOD UREA NITROGEN 13 MG/DL (9-23); CALCIUM LEVEL 8.6 MG/DL (8.5-10.1); CARBON DIOXIDE LEVEL 27 MMOL/L (20-31); CHLORIDE LEVEL 105 MMOL/L (98-107); CREATININE FOR GFR 0.39 MG/DL (0.55-1.30); GLOMERULAR FILTRATION RATE > 60.0 (>60); GLUCOSE, FASTING 152 MG/DL (60-100); POTASSIUM SERUM 4.1 MMOL/L (3.5-5.1); SODIUM LEVEL 139 MMOL/L (136-145); TOTAL PROTEIN 6.6 G/DL (5.7-8.2)
[2023-07-02] MEDS: SODIUM CHLORIDE 0.9% INJ 10 ML SYR IV SCH ×3 (06:16→22:25)
[2023-07-02 07:20] LABS: EOSINOPHILS 2 % (0-3); LYMPHOCYTES 30 % (16-44); METAMYELOCYTES 1 % (0-0); MONOCYTES 6 % (0-5); MYELOCYTES 4 % (0-0); NEUTROPHILS 55 % (28-66)
[2023-07-02 07:22] LABS: PLATELET ESTIMATE NORMAL (NORMAL)
[2023-07-02 07:23] LABS: PLATELET CLUMPS SMALL AMT
[2023-07-02] MEDS: ADVAIR HFA 230/21MCG INHALER INH SCH ×2 (07:51→19:06)
[2023-07-02 08:00] VITALS: BP 105/61; TEMP 98.1; O2SAT 97
[2023-07-02] MEDS: PANTOPRAZOLE 40MG VIAL IV SCH (08:25)
[2023-07-02] MEDS: FERROUS SULFATE 325MG TAB PO SCH (08:26)
[2023-07-02] MEDS: MIDODRINE 5 MG TAB PO SCH ×3 (08:26→15:17)
[2023-07-02] MEDS: CYANOCOBALAMIN 500 MCG TAB PO SCH (08:26)
[2023-07-02] MEDS: BISACODYL 10MG SUPP PR SCH (08:26)
[2023-07-02] MEDS: NYSTATIN OINTMENT 15 GM TOP SCH ×2 (08:26→20:20)
[2023-07-02] MEDS: ASCORBIC ACID 500 MG TAB PO SCH (08:26)
[2023-07-02] MEDS: ENOXAPARIN 30MG/0.3ML SYRINGE (J1650 PER 10MG) SC SCH (08:26)
[2023-07-02 12:00] VITALS: BP 94/56; TEMP 98.2; O2SAT 97
[2023-07-02 16:00] VITALS: BP 102/69; TEMP 98; O2SAT 97
[2023-07-02] MEDS ORDERED: AMINO AC/ELECTROLYTE/DEX/CALC 2,000 ML IV SCH (18:00)
[2023-07-02] MEDS ORDERED: FAT EMULSION IV 250 ML IV ONE (18:00)
[2023-07-02] MEDS: NOREPINEPHRINE 4MG IN D5 250ML 4 MG in IV 1 EA IV SCH ×2 (18:15)
[2023-07-02 20:00] VITALS: BP 103/67; TEMP 97.6; O2SAT 100
[2023-07-02] MEDS: AMITRIPTYLINE 25MG TABLET PO SCH (20:18)
[2023-07-02] MEDS: FAMOTIDINE 20 MG TAB PO SCH (20:18)
[2023-07-02] MEDS: MICAFUNGIN SODIUM 100 MG in D5W MINI-BAG PLUS 100 ML IV SCH (20:19)
[2023-07-02] MEDS: DAPTOmycin 400 MG in NS 50 ML IV SCH (21:39)
[2023-07-03] VITALS: BP 104/58; TEMP 97.7; O2SAT 99
[2023-07-03] MEDS: DOXYCYCLINE HYCLATE 100 MG in D5W MINI-BAG PLUS 100 ML IV SCH ×2 (03:10→18:00)
[2023-07-03 04:00] VITALS: BP 96/52; TEMP 97.4; O2SAT 95
[2023-07-03] MEDS: SODIUM CHLORIDE 0.9% INJ 10 ML SYR IV SCH ×3 (04:33→21:32)
[2023-07-03 04:47] LABS: HEMATOCRIT 29.2 % (36.0-47.0); HEMOGLOBIN 9.5 g/dl (12.0-15.5); MEAN CORPUSCULAR HEMOGLOBIN 28.9 pg (27.0-33.0); MEAN CORPUSCULAR HGB CONC 32.5 g/dl (32.0-36.5); MEAN CORPUSCULAR VOLUME 88.8 fl (80.0-96.0); PLATELET COUNT, AUTOMATED 204 10^3/uL (150-450); RED BLOOD COUNT 3.29 10^6/uL (4.00-5.40); WHITE BLOOD COUNT 7.5 10^3/uL (4.0-10.0)
[2023-07-03 05:16] LABS: ALBUMIN 3.1 G/DL (3.2-5.2); ALKALINE PHOSPHATASE 187 U/L (46-116); ALT/SGPT 64 U/L (7.0-40); AST/SGOT 35 U/L (<34); BILIRUBIN,TOTAL 0.2 MG/DL (0.3-1.2); BLOOD UREA NITROGEN 14 MG/DL (9-23); CALCIUM LEVEL 8.8 MG/DL (8.5-10.1); CARBON DIOXIDE LEVEL 26 MMOL/L (20-31); CHLORIDE LEVEL 105 MMOL/L (98-107); CREATININE FOR GFR 0.38 MG/DL (0.55-1.30); GLOMERULAR FILTRATION RATE > 60.0 (>60); GLUCOSE, FASTING 176 MG/DL (60-100); POTASSIUM SERUM 4.2 MMOL/L (3.5-5.1); SODIUM LEVEL 137 MMOL/L (136-145); TOTAL PROTEIN 6.4 G/DL (5.7-8.2)
[2023-07-03 05:42] LABS: ATYPICAL LYMPH 1 % (0-5); EOSINOPHILS 2 % (0-3); LYMPHOCYTES 29 % (16-44); METAMYELOCYTES 1 % (0-0); MONOCYTES 7 % (0-5); NEUTROPHILS 59 % (28-66)
[2023-07-03 05:43] LABS: PLATELET ESTIMATE NORMAL (NORMAL)
[2023-07-03] MEDS: INSULIN LISPRO (NovoLOG) PER UNIT SC SCH ×4 (06:00→23:29)
[2023-07-03] MEDS: ADVAIR HFA 230/21MCG INHALER INH SCH ×2 (07:16→19:31)
[2023-07-03 07:57] VITALS: BP 97/56; TEMP 97.1; O2SAT 99
[2023-07-03] MEDS: CYANOCOBALAMIN 500 MCG TAB PO SCH (08:38)
[2023-07-03] MEDS: PANTOPRAZOLE 40MG VIAL IV SCH (08:38)
[2023-07-03] MEDS: ASCORBIC ACID 500 MG TAB PO SCH (08:39)
[2023-07-03] MEDS: MIDODRINE 5 MG TAB PO SCH ×3 (08:39→16:58)
[2023-07-03] MEDS: ENOXAPARIN 30MG/0.3ML SYRINGE (J1650 PER 10MG) SC SCH (08:39)
[2023-07-03] MEDS: FERROUS SULFATE 325MG TAB PO SCH (08:39)
[2023-07-03] MEDS: NYSTATIN OINTMENT 15 GM TOP SCH ×2 (08:40→20:13)
[2023-07-03] MEDS: BISACODYL 10MG SUPP PR SCH (08:47)
[2023-07-03 12:15] VITALS: BP 106/73; TEMP 97.5; O2SAT 98
[2023-07-03 15:56] VITALS: BP 98/66; TEMP 98.3; O2SAT 99
[2023-07-03] MEDS ORDERED: FAT EMULSION IV 250 ML IV ONE (18:00)
[2023-07-03] MEDS ORDERED: MULTIVITAMIN -ADULT INJECTION 10 ML, ZINC/COPPER/MANGANESE/SELENIUM 1 ML in AMINO AC/EL... IV SCH (18:00)
[2023-07-03] MEDS: NOREPINEPHRINE 4MG IN D5 250ML 4 MG in IV 1 EA IV SCH ×2 (18:15)
[2023-07-03 20:00] VITALS: BP 105/68; TEMP 97.7; O2SAT 99
[2023-07-03] MEDS: AMITRIPTYLINE 25MG TABLET PO SCH (20:12)
[2023-07-03] MEDS: MICAFUNGIN SODIUM 100 MG in D5W MINI-BAG PLUS 100 ML IV SCH (20:12)
[2023-07-03] MEDS: FAMOTIDINE 20 MG TAB PO SCH (20:12)
[2023-07-03] MEDS ORDERED: DOXYCYCLINE HYCLATE 100MG TABLET PO SCH (21:00)
[2023-07-03] MEDS: DAPTOmycin 400 MG in NS 50 ML IV SCH (21:31)
[2023-07-04 04:00] VITALS: BP 102/68; TEMP 98; O2SAT 98
[2023-07-04 04:54] LABS: BASO % 0.4 % (0.0-1.0); EOS # 0.1 10^3/uL (0.0-0.5); EOS % 1.4 % (0.0-3.0); HEMATOCRIT 29.2 % (36.0-47.0); HEMOGLOBIN 9.4 g/dl (12.0-15.5); LYMPH % 24.6 % (24.0-44.0); MEAN CORPUSCULAR HEMOGLOBIN 28.3 pg (27.0-33.0); MEAN CORPUSCULAR HGB CONC 32.2 g/dl (32.0-36.5); MONO # 0.9 10^3/uL (0.0-0.8); MONO % 10.7 % (2.0-8.0); NEUTROPHILS # 4.5 10^3/uL (1.5-8.5); NEUTROPHILS % 55.6 % (36.0-66.0); PLATELET COUNT, AUTOMATED 280 10^3/uL (150-450); RED BLOOD COUNT 3.32 10^6/uL (4.00-5.40); WHITE BLOOD COUNT 8.1 10^3/uL (4.0-10.0)
[2023-07-04 05:13] LABS: ALBUMIN 3.2 G/DL (3.2-5.2); ALKALINE PHOSPHATASE 166 U/L (46-116); ALT/SGPT 57 U/L (7.0-40); AST/SGOT 28 U/L (<34); BILIRUBIN,TOTAL 0.2 MG/DL (0.3-1.2); BLOOD UREA NITROGEN 13 MG/DL (9-23); CALCIUM LEVEL 8.9 MG/DL (8.5-10.1); CARBON DIOXIDE LEVEL 27 MMOL/L (20-31); CHLORIDE LEVEL 105 MMOL/L (98-107); CREATININE FOR GFR 0.38 MG/DL (0.55-1.30); GLOMERULAR FILTRATION RATE > 60.0 (>60); GLUCOSE, FASTING 117 MG/DL (60-100); SODIUM LEVEL 138 MMOL/L (136-145); TOTAL PROTEIN 6.5 G/DL (5.7-8.2)
[2023-07-04] MEDS: DOXYCYCLINE HYCLATE 100 MG in D5W MINI-BAG PLUS 100 ML IV SCH ×2 (05:31→19:05)
[2023-07-04] MEDS: SODIUM CHLORIDE 0.9% INJ 10 ML SYR IV SCH ×4 (05:32→23:13)
[2023-07-04] MEDS: INSULIN LISPRO (NovoLOG) PER UNIT SC SCH ×4 (05:50→23:50)
[2023-07-04] MEDS: ADVAIR HFA 230/21MCG INHALER INH SCH ×2 (07:18→19:28)
[2023-07-04] MEDS: ASCORBIC ACID 500 MG TAB PO SCH (09:41)
[2023-07-04] MEDS: FERROUS SULFATE 325MG TAB PO SCH (09:41)
[2023-07-04] MEDS: CYANOCOBALAMIN 500 MCG TAB PO SCH (09:41)
[2023-07-04] MEDS: PANTOPRAZOLE 40MG VIAL IV SCH (09:42)
[2023-07-04] MEDS: ENOXAPARIN 30MG/0.3ML SYRINGE (J1650 PER 10MG) SC SCH (09:42)
[2023-07-04] MEDS: BISACODYL 10MG SUPP PR SCH (09:42)
[2023-07-04] MEDS: MIDODRINE 5 MG TAB PO SCH ×3 (09:42→19:03)
[2023-07-04] MEDS: NYSTATIN OINTMENT 15 GM TOP SCH ×2 (09:43→20:46)
[2023-07-04 13:08] VITALS: BP 97/62; TEMP 98.1; O2SAT 99
[2023-07-04 14:15] VITALS: BP 111/72; TEMP 97.7; O2SAT 100
[2023-07-04] MEDS ORDERED: FAT EMULSION IV 250 ML IV ONE (18:00)
[2023-07-04] MEDS ORDERED: AMINO AC/ELECTROLYTE/DEX/CALC 2,000 ML IV SCH (18:00)
[2023-07-04] MEDS: NOREPINEPHRINE 4MG IN D5 250ML 4 MG in IV 1 EA IV SCH ×2 (18:15)
[2023-07-04 19:57] VITALS: BP 103/64; TEMP 97.4; O2SAT 100
[2023-07-04] MEDS: MICAFUNGIN SODIUM 100 MG in D5W MINI-BAG PLUS 100 ML IV SCH (20:10)
[2023-07-04] MEDS: AMITRIPTYLINE 25MG TABLET PO SCH (20:45)
[2023-07-04] MEDS: FAMOTIDINE 20 MG TAB PO SCH (20:45)
[2023-07-04] MEDS: DAPTOmycin 400 MG in NS 50 ML IV SCH (22:08)
[2023-07-05 05:56] VITALS: BP 99/57; TEMP 98.1; O2SAT 99
[2023-07-05] MEDS: INSULIN LISPRO (NovoLOG) PER UNIT SC SCH ×2 (06:00→12:00)
[2023-07-05] MEDS: SODIUM CHLORIDE 0.9% INJ 10 ML SYR IV SCH (06:12)
[2023-07-05] MEDS ORDERED: MIDO5TA PO (07:58)
[2023-07-05] MEDS: FERROUS SULFATE 325MG TAB PO SCH (08:39)
[2023-07-05] MEDS: MIDODRINE 5 MG TAB PO SCH ×2 (08:39→12:59)
[2023-07-05] MEDS: CYANOCOBALAMIN 500 MCG TAB PO SCH (08:39)
[2023-07-05] MEDS: BISACODYL 10MG SUPP PR SCH (08:40)
[2023-07-05] MEDS: ASCORBIC ACID 500 MG TAB PO SCH (08:40)
[2023-07-05] MEDS: PANTOPRAZOLE 40MG VIAL IV SCH (08:40)
[2023-07-05] MEDS: ENOXAPARIN 30MG/0.3ML SYRINGE (J1650 PER 10MG) SC SCH (08:40)
[2023-07-05] MEDS: NYSTATIN OINTMENT 15 GM TOP SCH (08:44)
[2023-07-05] MEDS: ADVAIR HFA 230/21MCG INHALER INH SCH (11:34)
[2023-07-06] MEDS ORDERED: LEVA1.2525 INH (22:31)
[2023-07-06] MEDS ORDERED: MIDO5TA PO (22:31)
== END 2023-07-05 13:58 | disposition home health service (06) | DRG 720 ==
LOC: M ED 10:53 → M ED INP 15:13 → M ICU 16:24 → M MS4PR 07-04 14:10
PROVIDERS: ADMIT Internal Medicine; ATTEND Internal Medicine Nephrology
DX: A41.9 Sepsis, unspecified organism (principal); E43 Unspecified severe protein-calorie malnutrition; R65.21 Severe sepsis with septic shock; G93.41 Metabolic encephalopathy; K31.84 Gastroparesis; D69.6 Thrombocytopenia, unspecified; E83.42 Hypomagnesemia; Q79.60 Ehlers-Danlos syndrome, unspecified; Z93.1 Gastrostomy status; D50.9 Iron deficiency anemia, unspecified; D72.825 Bandemia; E87.6 Hypokalemia; G93.9 Disorder of brain, unspecified; J45.909 Unspecified asthma, uncomplicated; K21.9 Gastro-esophageal reflux disease without esophagitis; K25.9 Gastric ulcer, unspecified as acute or chronic, without hemorrhage or perforation; N39.0 Urinary tract infection, site not specified; K59.00 Constipation, unspecified; Z88.8 Allergy status to other drugs, medicaments and biological substances; Z79.899 Other long term (current) drug therapy; Z68.1 Body mass index [BMI] 19.9 or less, adult; R91.1 Solitary pulmonary nodule

== ENCOUNTER → 2023-06-26 | Outpatient (REF) | payer BC ==
[~2023-06-26] MED LIST changes: -AMIT25TA17; +AMIT25TA19
[2023-06-26 12:44] LABS: ALBUMIN 3.6 G/DL (3.2-5.2); ALKALINE PHOSPHATASE 65 U/L (46-116); ALT/SGPT 27 U/L (7.0-40); AST/SGOT 15 U/L (<34); BILIRUBIN,DIRECT 0.3 MG/DL (<0.4); BILIRUBIN,TOTAL 0.6 MG/DL (0.3-1.2); BLOOD UREA NITROGEN 12 MG/DL (9-23); CALCIUM LEVEL 8.9 MG/DL (8.5-10.1); CARBON DIOXIDE LEVEL 22 MMOL/L (20-31); CHLORIDE LEVEL 103 MMOL/L (98-107); CREATININE FOR GFR 0.65 MG/DL (0.55-1.30); GLOMERULAR FILTRATION RATE > 60.0 (>60); GLUCOSE, FASTING 97 MG/DL (60-100); POTASSIUM SERUM 3.5 MMOL/L (3.5-5.1); SODIUM LEVEL 136 MMOL/L (136-145)
== END ==
LOC: M SHH 11:26
PROVIDERS: ATTEND Internal Medicine Gastroenterology
DX: K31.84 Gastroparesis (principal); R62.7 Adult failure to thrive

== ENCOUNTER → 2023-06-26 | Outpatient (REF) | payer BC ==
[2023-06-26 12:21] LABS: EOS # 0.1 10^3/uL (0.0-0.5); EOS % 5.6 % (0.0-3.0); HEMATOCRIT 34.2 % (36.0-47.0); HEMOGLOBIN 11.2 g/dl (12.0-15.5); LYMPH # 0.5 10^3/uL (1.5-5.0); LYMPH % 59.6 % (24.0-44.0); MEAN CORPUSCULAR HEMOGLOBIN 28.4 pg (27.0-33.0); MEAN CORPUSCULAR HGB CONC 32.7 g/dl (32.0-36.5); MEAN CORPUSCULAR VOLUME 86.8 fl (80.0-96.0); MONO % 2.2 % (2.0-8.0); NEUTROPHILS % 31.5 % (36.0-66.0); PLATELET COUNT, AUTOMATED 137 10^3/uL (150-450); RED BLOOD COUNT 3.94 10^6/uL (4.00-5.40)
[2023-06-26 13:12] LABS: C REACTIVE PROTEIN QUANTITATIV 3.4 MG/DL (<1.0)
[2023-06-26 13:14] LABS: NEUTROPHILS # 0.3 10^3/uL (1.5-8.5); WHITE BLOOD COUNT 0.9 10^3/uL (4.0-10.0)
[2023-06-26 14:43] LABS: ERYTHROCYTE SEDIMENTATION RATE 45 mm/hr (0-20)
== END ==
LOC: M SHH 11:20
PROVIDERS: ATTEND Internal Medicine Infectious Disease
DX: T80.219A Unspecified infection due to central venous catheter, initial encounter (principal)

== ENCOUNTER 2023-07-06 11:44 | Inpatient (IN) | payer BC ==
[~2023-07-06] VITALS: Ht 172.7 cm; Wt 50.2 kg
[2023-07-06] MEDS ORDERED: ACETAMINOPHEN 325 MG TAB PO ONE (13:55)
[2023-07-06 14:05] LABS: ABG BASE EXCESS -2.6 (-2.0-2.0); ABG HCO3 20.2 MMOL/L (22.0-26.0); ABG O2 SATURATION 95.8 % (95.0-99.0); ABG PARTIAL PRESSURE CO2 28.7 mmHg (35.0-45.0); ABG PARTIAL PRESSURE O2 75.7 mmHg (75.0-100.0); ABG STANDARD HCO3 22.2 MMOL/L. (22.0-26.0); ABG TOTAL CO2 21.1 MMOL/L (22.0-29.0); ABG pH (ARTERIAL) 7.465 UNITS (7.350-7.450)
[2023-07-06] MEDS ORDERED: NS 1,340 ML in IV 1 EA IV ONE (14:05)
[2023-07-06] MEDS ORDERED: LIDOCAINE 2% 5ML JELLY UROJET TOP ONE (14:10)
[2023-07-06] MEDS ORDERED: CEFEPIME HCL 2 GM in D5W MINI-BAG PLUS 50 ML IV ONE (14:10)
[2023-07-06 14:13] LABS: BASO % 0.2 % (0.0-1.0); EOS % 0.2 % (0.0-3.0); HEMATOCRIT 29.8 % (36.0-47.0); HEMOGLOBIN 9.6 g/dl (12.0-15.5); LYMPH # 0.6 10^3/uL (1.5-5.0); LYMPH % 5.8 % (24.0-44.0); MEAN CORPUSCULAR HEMOGLOBIN 28.4 pg (27.0-33.0); MEAN CORPUSCULAR HGB CONC 32.2 g/dl (32.0-36.5); MEAN CORPUSCULAR VOLUME 88.2 fl (80.0-96.0); MONO # 0.1 10^3/uL (0.0-0.8); MONO % 0.7 % (2.0-8.0); NEUTROPHILS # 9.7 10^3/uL (1.5-8.5); PLATELET COUNT, AUTOMATED 255 10^3/uL (150-450); RED BLOOD COUNT 3.38 10^6/uL (4.00-5.40); WHITE BLOOD COUNT 10.5 10^3/uL (4.0-10.0)
[2023-07-06 14:26] LABS: INR 1.12; PROTHROMBIN TIME 14.1 SECONDS (12.5-14.5)
[2023-07-06 14:36] LABS: APPEARANCE, URINE HAZY (CLEAR); BACTERIA, URINE AUTO NEGATIVE (NEGATIVE); BILIRUBIN, URINE AUTO NEGATIVE (NEGATIVE); BLOOD, URINE BLOOD NEGATIVE (NEGATIVE); COLOR, URINE YELLOW (YELLOW); GLUCOSE, URINE (UA) AUTO NEGATIVE (NEGATIVE); KETONE, URINE AUTO NEGATIVE (NEGATIVE); LEUKOCYTE ESTERASE, URINE AUTO NEGATIVE (NEGATIVE); MUCUS, URINE SMALL (NEGATIVE); NITRITE, URINE AUTO NEGATIVE (NEGATIVE); PROTEIN, URINE AUTO 1+ mg/dL (NEGATIVE); RBC, URINE AUTO 0 /HPF (0-3); SPECIFIC GRAVITY URINE AUTO 1.014 (1.002-1.035); SQUAMOUS EPITHELIAL CELL UR AU 3 /HPF (0-6); UROBILINOGEN, URINE AUTO 0.2 mg/dL (0.0-2.0); WBC, URINE AUTO 2 /HPF (0-3)
[2023-07-06 14:49] LABS: AMYLASE 197 U/L (30-118)
[2023-07-06 15:02] LABS: PROCALCITONIN 13.13 ng/ml
[2023-07-06 15:04] LABS: ALBUMIN 3.6 G/DL (3.2-5.2); ALKALINE PHOSPHATASE 198 U/L (46-116); ALT/SGPT 66 U/L (7.0-40); AST/SGOT 55 U/L (<34); BILIRUBIN,DIRECT 0.3 MG/DL (<0.4); BILIRUBIN,TOTAL 0.5 MG/DL (0.3-1.2); BLOOD UREA NITROGEN 22 MG/DL (9-23); CARBON DIOXIDE LEVEL 25 MMOL/L (20-31); CHLORIDE LEVEL 104 MMOL/L (98-107); CREATININE FOR GFR 0.63 MG/DL (0.55-1.30); FREE T4 0.99 NG/DL (0.89-1.76); GLOMERULAR FILTRATION RATE > 60.0 (>60); GLUCOSE, FASTING 72 MG/DL (60-100); MAGNESIUM LEVEL 1.9 MG/DL (1.8-2.4); PHOSPHORUS LEVEL 2.3 MG/DL (2.5-4.9); POTASSIUM SERUM 3.4 MMOL/L (3.5-5.1); SODIUM LEVEL 138 MMOL/L (136-145); THYROID STIMULATING HORMONE 3.644 uIU/ML (0.55-4.78); TOTAL PROTEIN 6.9 G/DL (5.7-8.2)
[2023-07-06] MEDS ORDERED: ISOVUE-370 76% 100ML VIAL As Ordered ONE (15:55)
[2023-07-06] MEDS ORDERED: NS 1,000 ML IV ONE (17:00)
[2023-07-06] MEDS ORDERED: LR 1,000 ML IV ONE (17:20)
[2023-07-06] MEDS ORDERED: GLUCOSE 4GM CHEW TABLET PO PRN (17:55)
[2023-07-06] MEDS ORDERED: MIRALAX *UNIT DOSE* 17GM PACKET PO PRN (17:55)
[2023-07-06] MEDS ORDERED: LEVALBUTEROL 1.25MG 0.5ML CONCENTRATE NEB NEB PRN (17:55)
[2023-07-06] MEDS ORDERED: GLUCAGON INJ 1MG VIAL SC PRN (17:55)
[2023-07-06] MEDS: INSULIN LISPRO (NovoLOG) PER UNIT SC SCH (18:00)
[2023-07-06] MEDS ORDERED: SUMAtriptan SUCCINATE 25 MG TAB PO PRN (18:00)
[2023-07-06] MEDS ORDERED: KETOROLAC 30 MG/ML 1ML VIAL IV ONE (18:05)
[2023-07-06] MEDS ORDERED: MED REC IN PROGRESS XX SCH (18:45)
[2023-07-06] MEDS: KCL 10MEQ/100ML SWI (KRUN) 10 MEQ in IV 1 EA IV SCH ×4 (20:00→23:11)
[2023-07-06] MEDS: ADVAIR HFA 230/21MCG INHALER INH SCH (20:01)
[2023-07-06] MEDS: LR 1,000 ML IV SCH (20:40)
[2023-07-06 21:10] VITALS: BP 98/57; TEMP 98.7; O2SAT 100
[2023-07-06] MEDS: AMITRIPTYLINE 25MG TABLET PO SCH (21:56)
[2023-07-06] MEDS: FAMOTIDINE 20 MG TAB PO SCH (21:56)
[2023-07-06] MEDS: MICAFUNGIN SODIUM 100 MG in D5W MINI-BAG PLUS 100 ML IV SCH (21:56)
[2023-07-06] MEDS ORDERED: POTASSIUM PHOSPHATE INJ 20 MMOL in D5W 250 ML IV ONE (22:00)
[2023-07-06] MEDS ORDERED: LEVA1.2525 INH (22:31)
[2023-07-06] MEDS ORDERED: MIDO5TA PO (22:31)
[2023-07-06] MEDS ORDERED: HOME MED LIST COMPLETE! XX SCH (22:35)
[2023-07-06] MEDS: CEFEPIME HCL 2 GM in D5W MINI-BAG PLUS 50 ML IV SCH (23:16)
[2023-07-06 23:30] VITALS: BP 96/52; TEMP 98.5; O2SAT 98
[2023-07-07] MEDS: LR 1,000 ML IV SCH (01:49)
[2023-07-07 03:28] VITALS: BP 94/52; TEMP 98; O2SAT 98
[2023-07-07 04:13] LABS: BASO % 0.2 % (0.0-1.0); EOS % 0.2 % (0.0-3.0); HEMATOCRIT 25.7 % (36.0-47.0); HEMOGLOBIN 8.2 g/dl (12.0-15.5); LYMPH # 0.6 10^3/uL (1.5-5.0); LYMPH % 4.6 % (24.0-44.0); MEAN CORPUSCULAR HEMOGLOBIN 28.2 pg (27.0-33.0); MEAN CORPUSCULAR HGB CONC 31.9 g/dl (32.0-36.5); MEAN CORPUSCULAR VOLUME 88.3 fl (80.0-96.0); MONO # 0.4 10^3/uL (0.0-0.8); MONO % 3.6 % (2.0-8.0); NEUTROPHILS % 90.7 % (36.0-66.0); PLATELET COUNT, AUTOMATED 258 10^3/uL (150-450); RED BLOOD COUNT 2.91 10^6/uL (4.00-5.40); WHITE BLOOD COUNT 12.1 10^3/uL (4.0-10.0)
[2023-07-07 05:07] LABS: ALBUMIN 2.6 G/DL (3.2-5.2); ALKALINE PHOSPHATASE 147 U/L (46-116); ALT/SGPT 50 U/L (7.0-40); AST/SGOT 40 U/L (<34); BILIRUBIN,TOTAL 0.5 MG/DL (0.3-1.2); BLOOD UREA NITROGEN 13 MG/DL (9-23); CARBON DIOXIDE LEVEL 20 MMOL/L (20-31); CHLORIDE LEVEL 108 MMOL/L (98-107); CREATININE FOR GFR 0.45 MG/DL (0.55-1.30); GLOMERULAR FILTRATION RATE > 60.0 (>60); GLUCOSE, FASTING 86 MG/DL (60-100); MAGNESIUM LEVEL 1.7 MG/DL (1.8-2.4); PHOSPHORUS LEVEL 5.4 MG/DL (2.5-4.9); POTASSIUM SERUM 4.4 MMOL/L (3.5-5.1); SODIUM LEVEL 138 MMOL/L (136-145); TOTAL PROTEIN 5.3 G/DL (5.7-8.2)
[2023-07-07] MEDS: INSULIN LISPRO (NovoLOG) PER UNIT SC SCH ×4 (06:00→18:00)
[2023-07-07] MEDS: MAG SULF 1GM/100ML (MAG RUN) 100 ML IV SCH ×2 (06:13→07:53)
[2023-07-07] MEDS: DEXTROSE 50% 50ML SYRINGE IV PRN (06:13)
[2023-07-07] MEDS ORDERED: MAG SULF 1GM/100ML (MAG RUN) 1 GM in IV 1 EA IV ONE (06:35)
[2023-07-07] MEDS: ADVAIR HFA 230/21MCG INHALER INH SCH ×2 (07:46→19:33)
[2023-07-07] MEDS: MIDODRINE 5 MG TAB PO SCH ×3 (07:53→16:40)
[2023-07-07] MEDS: CEFEPIME HCL 2 GM in D5W MINI-BAG PLUS 50 ML IV SCH ×2 (07:53→16:40)
[2023-07-07 08:00] VITALS: BP 87/51; TEMP 97.6; O2SAT 99
[2023-07-07] MEDS: CYANOCOBALAMIN 500 MCG TAB PO SCH (08:39)
[2023-07-07] MEDS: ASCORBIC ACID 500 MG TAB PO SCH (08:39)
[2023-07-07] MEDS: FERROUS SULFATE 325MG TAB PO SCH (08:39)
[2023-07-07] MEDS: BISACODYL 10MG SUPP PR SCH (08:40)
[2023-07-07] MEDS: ENOXAPARIN 30MG/0.3ML SYRINGE (J1650 PER 10MG) SC SCH (08:40)
[2023-07-07] MEDS: D5W/LR 1,000 ML IV SCH ×2 (09:33→16:40)
[2023-07-07] MEDS ORDERED: LR 1,000 ML IV ONE (10:00)
[2023-07-07 12:00] VITALS: BP 98/56; TEMP 98.4; O2SAT 97
[2023-07-07 16:00] VITALS: BP 95/60; TEMP 98; O2SAT 100
[2023-07-07 20:23] VITALS: BP 102/63; TEMP 98; O2SAT 98
[2023-07-07] MEDS: MICAFUNGIN SODIUM 100 MG in D5W MINI-BAG PLUS 100 ML IV SCH (20:50)
[2023-07-07] MEDS: FAMOTIDINE 20 MG TAB PO SCH (20:50)
[2023-07-07] MEDS: AMITRIPTYLINE 25MG TABLET PO SCH (20:50)
[2023-07-08 00:09] VITALS: BP 101/58; TEMP 97.4; O2SAT 97
[2023-07-08] MEDS: D5W/LR 1,000 ML IV SCH ×3 (00:49→17:03)
[2023-07-08] MEDS: CEFEPIME HCL 2 GM in D5W MINI-BAG PLUS 50 ML IV SCH ×3 (00:49→17:03)
[2023-07-08 04:18] VITALS: BP 99/64; TEMP 96.8; O2SAT 98
[2023-07-08] MEDS: INSULIN LISPRO (NovoLOG) PER UNIT SC SCH ×4 (06:00→16:58)
[2023-07-08] MEDS: ADVAIR HFA 230/21MCG INHALER INH SCH ×2 (07:14→19:30)
[2023-07-08 08:03] VITALS: BP 99/54; TEMP 97.7; O2SAT 99
[2023-07-08 08:24] LABS: BASO % 0.3 % (0.0-1.0); EOS # 0.1 10^3/uL (0.0-0.5); HEMATOCRIT 30.5 % (36.0-47.0); HEMOGLOBIN 9.7 g/dl (12.0-15.5); LYMPH # 0.6 10^3/uL (1.5-5.0); LYMPH % 20.5 % (24.0-44.0); MEAN CORPUSCULAR HEMOGLOBIN 27.6 pg (27.0-33.0); MEAN CORPUSCULAR HGB CONC 31.8 g/dl (32.0-36.5); MEAN CORPUSCULAR VOLUME 86.9 fl (80.0-96.0); MONO # 0.3 10^3/uL (0.0-0.8); MONO % 9.4 % (2.0-8.0); NEUTROPHILS % 67.5 % (36.0-66.0); RED BLOOD COUNT 3.51 10^6/uL (4.00-5.40)
[2023-07-08 08:55] LABS: ALBUMIN 2.9 G/DL (3.2-5.2); ALKALINE PHOSPHATASE 141 U/L (46-116); ALT/SGPT 53 U/L (7.0-40); AST/SGOT 36 U/L (<34); BILIRUBIN,TOTAL 0.4 MG/DL (0.3-1.2); BLOOD UREA NITROGEN < 5 MG/DL (9-23); CALCIUM LEVEL 8.7 MG/DL (8.5-10.1); CARBON DIOXIDE LEVEL 25 MMOL/L (20-31); CHLORIDE LEVEL 106 MMOL/L (98-107); GLOMERULAR FILTRATION RATE > 60.0 (>60); GLUCOSE, FASTING 128 MG/DL (60-100); MAGNESIUM LEVEL 1.8 MG/DL (1.8-2.4); PHOSPHORUS LEVEL 3.1 MG/DL (2.5-4.9); POTASSIUM SERUM 4.3 MMOL/L (3.5-5.1); SODIUM LEVEL 139 MMOL/L (136-145); TOTAL PROTEIN 6.1 G/DL (5.7-8.2)
[2023-07-08] MEDS: ASCORBIC ACID 500 MG TAB PO SCH (09:18)
[2023-07-08] MEDS: ENOXAPARIN 30MG/0.3ML SYRINGE (J1650 PER 10MG) SC SCH (09:18)
[2023-07-08] MEDS: ONDANSETRON 4MG TAB PO PRN (09:18)
[2023-07-08] MEDS: MIDODRINE 5 MG TAB PO SCH ×3 (09:18→17:03)
[2023-07-08] MEDS: CYANOCOBALAMIN 500 MCG TAB PO SCH (09:18)
[2023-07-08] MEDS: FERROUS SULFATE 325MG TAB PO SCH (09:19)
[2023-07-08] MEDS: BISACODYL 10MG SUPP PR SCH (09:19)
[2023-07-08 11:31] VITALS: BP 95/59; TEMP 97.1; O2SAT 99
[2023-07-08 16:30] VITALS: BP 95/51; TEMP 97.5; O2SAT 99
[2023-07-08 20:10] VITALS: BP 93/54; TEMP 97.1; O2SAT 100
[2023-07-08] MEDS: FAMOTIDINE 20 MG TAB PO SCH (21:51)
[2023-07-08] MEDS: AMITRIPTYLINE 25MG TABLET PO SCH (21:51)
[2023-07-09] MEDS: CEFEPIME HCL 2 GM in D5W MINI-BAG PLUS 50 ML IV SCH ×3 (01:18→16:47)
[2023-07-09] MEDS: D5W/LR 1,000 ML IV SCH ×3 (01:18→17:44)
[2023-07-09 04:18] VITALS: BP 90/54; TEMP 97.2; O2SAT 99
[2023-07-09] MEDS: INSULIN LISPRO (NovoLOG) PER UNIT SC SCH ×4 (06:00→17:56)
[2023-07-09] MEDS: ADVAIR HFA 230/21MCG INHALER INH SCH ×2 (07:36→19:03)
[2023-07-09 07:56] VITALS: BP 92/52; TEMP 97.6; O2SAT 100
[2023-07-09] MEDS: MIDODRINE 5 MG TAB PO SCH ×3 (08:57→16:47)
[2023-07-09] MEDS: CYANOCOBALAMIN 500 MCG TAB PO SCH (08:57)
[2023-07-09] MEDS: ASCORBIC ACID 500 MG TAB PO SCH (08:57)
[2023-07-09] MEDS: FERROUS SULFATE 325MG TAB PO SCH (08:57)
[2023-07-09] MEDS: ENOXAPARIN 30MG/0.3ML SYRINGE (J1650 PER 10MG) SC SCH (08:57)
[2023-07-09] MEDS: BISACODYL 10MG SUPP PR SCH (08:57)
[2023-07-09 12:50] VITALS: BP 102/66; TEMP 98; O2SAT 99
[2023-07-09 16:37] VITALS: BP 106/71
[2023-07-09 17:43] VITALS: BP 105/70; TEMP 97.8; O2SAT 98
[2023-07-09] MEDS ORDERED: diphenhydrAMINE 50MG/ML VIAL IV STA (18:11)
[2023-07-09] MEDS: FAMOTIDINE 20 MG TAB PO SCH (20:32)
[2023-07-09] MEDS: AMITRIPTYLINE 25MG TABLET PO SCH (20:32)
[2023-07-09 23:56] VITALS: BP 88/42; TEMP 96.2; O2SAT 100
[2023-07-10] MEDS ORDERED: SODIUM CHLORIDE 0.9% 1000ML IV ONE (00:15)
[2023-07-10] MEDS ORDERED: MIDODRINE 5 MG TAB PO ONE (00:15)
[2023-07-10] MEDS: CEFEPIME HCL 2 GM in D5W MINI-BAG PLUS 50 ML IV SCH ×3 (00:23→16:33)
[2023-07-10 00:48] VITALS: BP 110/90
[2023-07-10] MEDS: D5W/LR 1,000 ML IV SCH ×4 (01:33→20:09)
[2023-07-10 04:25] LABS: BASO % 0.6 % (0.0-1.0); EOS % 0.9 % (0.0-3.0); HEMATOCRIT 27.4 % (36.0-47.0); HEMOGLOBIN 8.7 g/dl (12.0-15.5); LYMPH % 29.6 % (24.0-44.0); MEAN CORPUSCULAR HEMOGLOBIN 27.8 pg (27.0-33.0); MEAN CORPUSCULAR HGB CONC 31.8 g/dl (32.0-36.5); MEAN CORPUSCULAR VOLUME 87.5 fl (80.0-96.0); MONO # 0.4 10^3/uL (0.0-0.8); MONO % 10.9 % (2.0-8.0); NEUTROPHILS % 57.4 % (36.0-66.0); PLATELET COUNT, AUTOMATED 318 10^3/uL (150-450); RED BLOOD COUNT 3.13 10^6/uL (4.00-5.40); WHITE BLOOD COUNT 3.4 10^3/uL (4.0-10.0)
[2023-07-10 04:53] LABS: ALBUMIN 2.9 G/DL (3.2-5.2); ALKALINE PHOSPHATASE 115 U/L (46-116); ALT/SGPT 35 U/L (7.0-40); AST/SGOT 13 U/L (<34); BILIRUBIN,TOTAL 0.5 MG/DL (0.3-1.2); BLOOD UREA NITROGEN < 5 MG/DL (9-23); CALCIUM LEVEL 8.6 MG/DL (8.5-10.1); CARBON DIOXIDE LEVEL 26 MMOL/L (20-31); CHLORIDE LEVEL 107 MMOL/L (98-107); CREATININE FOR GFR 0.46 MG/DL (0.55-1.30); GLOMERULAR FILTRATION RATE > 60.0 (>60); GLUCOSE, FASTING 129 MG/DL (60-100); MAGNESIUM LEVEL 1.6 MG/DL (1.8-2.4); POTASSIUM SERUM 4.1 MMOL/L (3.5-5.1); SODIUM LEVEL 140 MMOL/L (136-145)
[2023-07-10] MEDS: INSULIN LISPRO (NovoLOG) PER UNIT SC SCH ×5 (06:00→23:29)
[2023-07-10] MEDS: ADVAIR HFA 230/21MCG INHALER INH SCH ×2 (07:45→20:01)
[2023-07-10 07:50] VITALS: BP 96/52; TEMP 97.2; O2SAT 99
[2023-07-10] MEDS: BISACODYL 10MG SUPP PR SCH (08:42)
[2023-07-10] MEDS: ENOXAPARIN 30MG/0.3ML SYRINGE (J1650 PER 10MG) SC SCH (08:42)
[2023-07-10] MEDS: MIDODRINE 5 MG TAB PO SCH ×3 (08:42→16:32)
[2023-07-10] MEDS: FERROUS SULFATE 325MG TAB PO SCH (08:43)
[2023-07-10] MEDS: CYANOCOBALAMIN 500 MCG TAB PO SCH (08:43)
[2023-07-10] MEDS: ASCORBIC ACID 500 MG TAB PO SCH (08:43)
[2023-07-10] MEDS: diphenhydrAMINE 50MG/ML VIAL IV PRN ×3 (10:11→23:20)
[2023-07-10 15:52] VITALS: BP 99/56; TEMP 98.7; O2SAT 100
[2023-07-10 20:07] LABS: IMMUNOTYPING SERUM IGA SO 85 mg/dL (87-352); IMMUNOTYPING SERUM IGM SO 904 mg/dL (26-217)
[2023-07-10] MEDS: AMITRIPTYLINE 25MG TABLET PO SCH (20:09)
[2023-07-10] MEDS: FAMOTIDINE 20 MG TAB PO SCH (20:09)
[2023-07-11] VITALS: BP 101/55; TEMP 96.8; O2SAT 100
[2023-07-11] MEDS: CEFEPIME HCL 2 GM in D5W MINI-BAG PLUS 50 ML IV SCH ×2 (00:12→10:11)
[2023-07-11 05:11] LABS: BASO % 0.9 % (0.0-1.0); EOS % 0.6 % (0.0-3.0); HEMATOCRIT 28.5 % (36.0-47.0); HEMOGLOBIN 8.9 g/dl (12.0-15.5); LYMPH # 1.2 10^3/uL (1.5-5.0); LYMPH % 38.5 % (24.0-44.0); MEAN CORPUSCULAR HEMOGLOBIN 27.6 pg (27.0-33.0); MEAN CORPUSCULAR HGB CONC 31.2 g/dl (32.0-36.5); MEAN CORPUSCULAR VOLUME 88.5 fl (80.0-96.0); MONO # 0.4 10^3/uL (0.0-0.8); MONO % 11.7 % (2.0-8.0); NEUTROPHILS # 1.5 10^3/uL (1.5-8.5); NEUTROPHILS % 47.4 % (36.0-66.0); PLATELET COUNT, AUTOMATED 304 10^3/uL (150-450); RED BLOOD COUNT 3.22 10^6/uL (4.00-5.40); WHITE BLOOD COUNT 3.2 10^3/uL (4.0-10.0)
[2023-07-11] MEDS: D5W/LR 1,000 ML IV SCH ×2 (05:25→18:02)
[2023-07-11 05:28] LABS: ALBUMIN 3.1 G/DL (3.2-5.2); ALKALINE PHOSPHATASE 104 U/L (46-116); ALT/SGPT 31 U/L (7.0-40); AST/SGOT 12 U/L (<34); BILIRUBIN,TOTAL 0.4 MG/DL (0.3-1.2); BLOOD UREA NITROGEN < 5 MG/DL (9-23); CALCIUM LEVEL 8.6 MG/DL (8.5-10.1); CARBON DIOXIDE LEVEL 25 MMOL/L (20-31); CHLORIDE LEVEL 106 MMOL/L (98-107); CREATININE FOR GFR 0.42 MG/DL (0.55-1.30); GLOMERULAR FILTRATION RATE > 60.0 (>60); GLUCOSE, FASTING 115 MG/DL (60-100); MAGNESIUM LEVEL 1.5 MG/DL (1.8-2.4); POTASSIUM SERUM 3.8 MMOL/L (3.5-5.1); SODIUM LEVEL 139 MMOL/L (136-145); TOTAL PROTEIN 6.2 G/DL (5.7-8.2)
[2023-07-11] MEDS: INSULIN LISPRO (NovoLOG) PER UNIT SC SCH ×2 (06:00→11:45)
[2023-07-11] MEDS ORDERED: MAG SULF 1GM/100ML (MAG RUN) 1 GM in IV 1 EA IV ONE (07:15)
[2023-07-11 07:38] VITALS: BP 98/58; TEMP 97.1; O2SAT 100
[2023-07-11] MEDS: ADVAIR HFA 230/21MCG INHALER INH SCH ×2 (07:40→19:13)
[2023-07-11] MEDS: ENOXAPARIN 30MG/0.3ML SYRINGE (J1650 PER 10MG) SC SCH (08:36)
[2023-07-11] MEDS: MIDODRINE 5 MG TAB PO SCH ×3 (08:36→16:17)
[2023-07-11] MEDS: BISACODYL 10MG SUPP PR SCH (08:36)
[2023-07-11] MEDS: CYANOCOBALAMIN 500 MCG TAB PO SCH (08:36)
[2023-07-11] MEDS: ASCORBIC ACID 500 MG TAB PO SCH (08:36)
[2023-07-11] MEDS: MAGNESIUM OXIDE 400MG TAB (MAG-OX) PO SCH ×2 (08:36→21:48)
[2023-07-11] MEDS: FERROUS SULFATE 325MG TAB PO SCH (08:36)
[2023-07-11] MEDS: diphenhydrAMINE 50MG/ML VIAL IV PRN (09:44)
[2023-07-11 11:45] VITALS: BP 99/76
[2023-07-11] MEDS: ONDANSETRON 4MG TAB PO PRN (13:38)
[2023-07-11] MEDS ORDERED: GASTROGRAFIN SOLUTION 30ML As Ordered ONE (15:03)
[2023-07-11] MEDS: cefTRIAXone SOD 2 GM in D5W MINI-BAG PLUS 50 ML IV SCH (16:17)
[2023-07-11 20:00] VITALS: BP 98/58; TEMP 97.1; O2SAT 100
[2023-07-11] MEDS: AMITRIPTYLINE 25MG TABLET PO SCH (21:48)
[2023-07-11] MEDS: FAMOTIDINE 20 MG TAB PO SCH (21:48)
[2023-07-12] VITALS: BP 101/62; TEMP 97.8; O2SAT 100
[2023-07-12] MEDS: D5W/LR 1,000 ML IV SCH ×3 (01:05→17:05)
[2023-07-12 04:00] VITALS: BP 94/65; TEMP 98.1; O2SAT 100
[2023-07-12 05:13] LABS: BASO % 0.8 % (0.0-1.0); EOS % 0.6 % (0.0-3.0); HEMOGLOBIN 8.8 g/dl (12.0-15.5); LYMPH # 1.3 10^3/uL (1.5-5.0); LYMPH % 36.8 % (24.0-44.0); MEAN CORPUSCULAR HGB CONC 31.4 g/dl (32.0-36.5); MEAN CORPUSCULAR VOLUME 89.2 fl (80.0-96.0); MONO # 0.5 10^3/uL (0.0-0.8); NEUTROPHILS # 1.7 10^3/uL (1.5-8.5); NEUTROPHILS % 47.7 % (36.0-66.0); PLATELET COUNT, AUTOMATED 393 10^3/uL (150-450); RED BLOOD COUNT 3.14 10^6/uL (4.00-5.40); WHITE BLOOD COUNT 3.5 10^3/uL (4.0-10.0)
[2023-07-12 05:38] LABS: ALBUMIN 3.1 G/DL (3.2-5.2); ALKALINE PHOSPHATASE 99 U/L (46-116); ALT/SGPT 28 U/L (7.0-40); AST/SGOT 14 U/L (<34); BILIRUBIN,TOTAL 0.3 MG/DL (0.3-1.2); BLOOD UREA NITROGEN < 5 MG/DL (9-23); CALCIUM LEVEL 8.4 MG/DL (8.5-10.1); CARBON DIOXIDE LEVEL 25 MMOL/L (20-31); CHLORIDE LEVEL 107 MMOL/L (98-107); CREATININE FOR GFR 0.42 MG/DL (0.55-1.30); GLOMERULAR FILTRATION RATE > 60.0 (>60); GLUCOSE, FASTING 115 MG/DL (60-100); MAGNESIUM LEVEL 1.7 MG/DL (1.8-2.4); POTASSIUM SERUM 4.1 MMOL/L (3.5-5.1); SODIUM LEVEL 141 MMOL/L (136-145); TOTAL PROTEIN 6.2 G/DL (5.7-8.2)
[2023-07-12] MEDS: ADVAIR HFA 230/21MCG INHALER INH SCH ×2 (07:49→18:58)
[2023-07-12 07:54] VITALS: BP 91/54; TEMP 97.1; O2SAT 100
[2023-07-12] MEDS ORDERED: MAG SULF 1GM/100ML (MAG RUN) 1 GM in IV 1 EA IV ONE (08:00)
[2023-07-12] MEDS: ENOXAPARIN 30MG/0.3ML SYRINGE (J1650 PER 10MG) SC SCH (08:16)
[2023-07-12] MEDS: ASCORBIC ACID 500 MG TAB PO SCH (08:17)
[2023-07-12] MEDS: MAGNESIUM OXIDE 400MG TAB (MAG-OX) PO SCH ×2 (08:17→20:23)
[2023-07-12] MEDS: CYANOCOBALAMIN 500 MCG TAB PO SCH (08:17)
[2023-07-12] MEDS: FERROUS SULFATE 325MG TAB PO SCH (08:17)
[2023-07-12] MEDS: MIDODRINE 5 MG TAB PO SCH ×3 (08:17→16:48)
[2023-07-12] MEDS: BISACODYL 10MG SUPP PR SCH (08:17)
[2023-07-12 12:00] VITALS: BP 102/70
[2023-07-12] MEDS: cefTRIAXone SOD 2 GM in D5W MINI-BAG PLUS 50 ML IV SCH (16:48)
[2023-07-12 19:45] VITALS: BP 95/56; TEMP 97.3; O2SAT 99
[2023-07-12] MEDS: FAMOTIDINE 20 MG TAB PO SCH (20:23)
[2023-07-12] MEDS: AMITRIPTYLINE 25MG TABLET PO SCH (20:23)
[2023-07-13] VITALS (8 sets, daily range): BP systolic 99–120; BP diastolic 54–82; TEMP 97–98.4; O2SAT 97–100
[2023-07-13] MEDS: D5W/LR 1,000 ML IV SCH ×3 (00:18→18:30)
[2023-07-13 04:14] LABS: BASO % 0.8 % (0.0-1.0); EOS % 0.8 % (0.0-3.0); HEMATOCRIT 27.5 % (36.0-47.0); HEMOGLOBIN 8.8 g/dl (12.0-15.5); LYMPH # 1.4 10^3/uL (1.5-5.0); LYMPH % 37.8 % (24.0-44.0); MEAN CORPUSCULAR VOLUME 87.6 fl (80.0-96.0); MONO # 0.5 10^3/uL (0.0-0.8); MONO % 13.1 % (2.0-8.0); NEUTROPHILS # 1.7 10^3/uL (1.5-8.5); NEUTROPHILS % 45.8 % (36.0-66.0); PLATELET COUNT, AUTOMATED 348 10^3/uL (150-450); RED BLOOD COUNT 3.14 10^6/uL (4.00-5.40); WHITE BLOOD COUNT 3.6 10^3/uL (4.0-10.0)
[2023-07-13 04:43] LABS: ALBUMIN 3.1 G/DL (3.2-5.2); ALKALINE PHOSPHATASE 96 U/L (46-116); ALT/SGPT 25 U/L (7.0-40); AST/SGOT 9 U/L (<34); BILIRUBIN,TOTAL 0.3 MG/DL (0.3-1.2); BLOOD UREA NITROGEN < 5 MG/DL (9-23); CALCIUM LEVEL 8.8 MG/DL (8.5-10.1); CARBON DIOXIDE LEVEL 25 MMOL/L (20-31); CHLORIDE LEVEL 109 MMOL/L (98-107); CREATININE FOR GFR 0.39 MG/DL (0.55-1.30); GLOMERULAR FILTRATION RATE > 60.0 (>60); GLUCOSE, FASTING 117 MG/DL (60-100); MAGNESIUM LEVEL 1.8 MG/DL (1.8-2.4); POTASSIUM SERUM 3.8 MMOL/L (3.5-5.1); SODIUM LEVEL 142 MMOL/L (136-145)
[2023-07-13] MEDS: ADVAIR HFA 230/21MCG INHALER INH SCH ×2 (08:05→19:41)
[2023-07-13] MEDS: ONDANSETRON 4MG TAB PO PRN (10:11)
[2023-07-13] MEDS: CYANOCOBALAMIN 500 MCG TAB PO SCH (10:11)
[2023-07-13] MEDS: FERROUS SULFATE 325MG TAB PO SCH (10:12)
[2023-07-13] MEDS: BISACODYL 10MG SUPP PR SCH (10:12)
[2023-07-13] MEDS: MAGNESIUM OXIDE 400MG TAB (MAG-OX) PO SCH ×2 (10:12→20:28)
[2023-07-13] MEDS: ASCORBIC ACID 500 MG TAB PO SCH (10:12)
[2023-07-13] MEDS: MIDODRINE 5 MG TAB PO SCH ×3 (10:12→16:00)
[2023-07-13] MEDS: DEXTROSE 50% 50ML SYRINGE IV PRN (11:50)
[2023-07-13] MEDS ORDERED: LIDOCAINE 1% SDV 30ML VIAL As Ordered ONE (13:05)
[2023-07-13] MEDS ORDERED: fentaNYL 100 MCG/2 ML INJECTION As Ordered ONE ×2 (13:49→14:54)
[2023-07-13] MEDS ORDERED: ACETAMINOPHEN 1000MG 100ML IV BAG As Ordered ONE (13:49)
[2023-07-13] MEDS ORDERED: ONDANSETRON 4MG 2ML VIAL As Ordered ONE (13:49)
[2023-07-13] MEDS ORDERED: ROCURONIUM BROMIDE 50MG/5ML VIAL As Ordered ONE (13:49)
[2023-07-13] MEDS ORDERED: MIDAZOLAM INJ 2MG/2ML VIAL As Ordered ONE (13:49)
[2023-07-13] MEDS ORDERED: propofoL 200 MG/20 ML VIAL As Ordered ONE (13:49)
[2023-07-13] MEDS ORDERED: LIDOCAINE 2% 100MG/5ML SDV (FOR ANES.) As Ordered ONE (13:49)
[2023-07-13] MEDS ORDERED: SUGAMMADEX SODIUM 500 MG/5 ML VIAL (BRIDION) As Ordered ONE (13:49)
[2023-07-13] MEDS ORDERED: ceFAZolin 2 GM/D5W 50 ML IV BAG As Ordered ONE (13:56)
[2023-07-13] MEDS ORDERED: fentaNYL 100 MCG/2 ML INJECTION IV PRN (14:50)
[2023-07-13] MEDS ORDERED: ONDANSETRON 4MG 2ML VIAL IV PRN (14:50)
[2023-07-13] MEDS ORDERED: oxyCODONE 5MG TAB PO PRN (14:50)
[2023-07-13] MEDS ORDERED: HYDROMORPHONE HCL 0.5 MG/ 0.5 ML SYRINGE IV PRN (14:50)
[2023-07-13] MEDS: MORPHINE 4 MG/ML 1ML VIAL IV PRN ×2 (16:56→22:03)
[2023-07-13] MEDS: cefTRIAXone SOD 2 GM in D5W MINI-BAG PLUS 50 ML IV SCH (16:57)
[2023-07-13] MEDS: AMITRIPTYLINE 25MG TABLET PO SCH (20:28)
[2023-07-13] MEDS: FAMOTIDINE 20 MG TAB PO SCH (20:28)
[2023-07-14 00:37] LABS: APPEARANCE, URINE CLOUDY (CLEAR); BACTERIA, URINE AUTO NEGATIVE (NEGATIVE); BILIRUBIN, URINE AUTO NEGATIVE (NEGATIVE); BLOOD, URINE BLOOD NEGATIVE (NEGATIVE); COLOR, URINE YELLOW (YELLOW); GLUCOSE, URINE (UA) AUTO NEGATIVE (NEGATIVE); KETONE, URINE AUTO NEGATIVE (NEGATIVE); LEUKOCYTE ESTERASE, URINE AUTO NEGATIVE (NEGATIVE); MUCUS, URINE SMALL (NEGATIVE); NITRITE, URINE AUTO NEGATIVE (NEGATIVE); PROTEIN, URINE AUTO NEGATIVE (NEGATIVE); RBC, URINE AUTO 1 /HPF (0-3); SPECIFIC GRAVITY URINE AUTO 1.013 (1.002-1.035); SQUAMOUS EPITHELIAL CELL UR AU 1 /HPF (0-6); UROBILINOGEN, URINE AUTO 0.2 mg/dL (0.0-2.0); WBC, URINE AUTO 1 /HPF (0-3)
[2023-07-14] MEDS: D5W/LR 1,000 ML IV SCH ×3 (01:19→20:21)
[2023-07-14 03:55] VITALS: BP 100/54; TEMP 97.9; O2SAT 16
[2023-07-14 05:45] LABS: BASO % 0.3 % (0.0-1.0); HEMATOCRIT 28.6 % (36.0-47.0); LYMPH % 17.2 % (24.0-44.0); MEAN CORPUSCULAR HEMOGLOBIN 27.8 pg (27.0-33.0); MEAN CORPUSCULAR HGB CONC 31.5 g/dl (32.0-36.5); MEAN CORPUSCULAR VOLUME 88.3 fl (80.0-96.0); MONO # 0.6 10^3/uL (0.0-0.8); MONO % 9.8 % (2.0-8.0); NEUTROPHILS # 4.4 10^3/uL (1.5-8.5); NEUTROPHILS % 72.2 % (36.0-66.0); PLATELET COUNT, AUTOMATED 341 10^3/uL (150-450); RED BLOOD COUNT 3.24 10^6/uL (4.00-5.40); WHITE BLOOD COUNT 6.1 10^3/uL (4.0-10.0)
[2023-07-14] MEDS: MORPHINE 4 MG/ML 1ML VIAL IV PRN ×4 (06:09→22:33)
[2023-07-14 06:13] LABS: ALBUMIN 3.2 G/DL (3.2-5.2); ALKALINE PHOSPHATASE 94 U/L (46-116); ALT/SGPT 28 U/L (7.0-40); AST/SGOT 15 U/L (<34); BILIRUBIN,TOTAL 0.4 MG/DL (0.3-1.2); BLOOD UREA NITROGEN < 5 MG/DL (9-23); CALCIUM LEVEL 8.7 MG/DL (8.5-10.1); CARBON DIOXIDE LEVEL 27 MMOL/L (20-31); CHLORIDE LEVEL 107 MMOL/L (98-107); CREATININE FOR GFR 0.42 MG/DL (0.55-1.30); GLOMERULAR FILTRATION RATE > 60.0 (>60); GLUCOSE, FASTING 116 MG/DL (60-100); MAGNESIUM LEVEL 1.7 MG/DL (1.8-2.4); POTASSIUM SERUM 4.2 MMOL/L (3.5-5.1); SODIUM LEVEL 139 MMOL/L (136-145); TOTAL PROTEIN 6.3 G/DL (5.7-8.2)
[2023-07-14] MEDS: ADVAIR HFA 230/21MCG INHALER INH SCH ×2 (07:19→20:57)
[2023-07-14 07:45] VITALS: BP 114/55; TEMP 97.6; O2SAT 100
[2023-07-14] MEDS ORDERED: MAG SULF 1GM/100ML (MAG RUN) 1 GM in IV 1 EA IV ONE (08:00)
[2023-07-14] MEDS: ASCORBIC ACID 500 MG TAB PO SCH (08:31)
[2023-07-14] MEDS: BISACODYL 10MG SUPP PR SCH (08:32)
[2023-07-14] MEDS: CYANOCOBALAMIN 500 MCG TAB PO SCH (08:32)
[2023-07-14] MEDS: MIDODRINE 5 MG TAB PO SCH ×3 (08:32→16:42)
[2023-07-14] MEDS: FERROUS SULFATE 325MG TAB PO SCH (08:32)
[2023-07-14] MEDS: MAGNESIUM OXIDE 400MG TAB (MAG-OX) PO SCH ×2 (08:33→20:21)
[2023-07-14] MEDS: ONDANSETRON 4MG TAB PO PRN (10:01)
[2023-07-14] MEDS: ENOXAPARIN 30MG/0.3ML SYRINGE (J1650 PER 10MG) SC SCH (10:02)
[2023-07-14] MEDS: cefTRIAXone SOD 2 GM in D5W MINI-BAG PLUS 50 ML IV SCH (16:43)
[2023-07-14 19:46] VITALS: BP 108/60; TEMP 98.5; O2SAT 99
[2023-07-14] MEDS: AMITRIPTYLINE 25MG TABLET PO SCH (20:21)
[2023-07-14] MEDS: FAMOTIDINE 20 MG TAB PO SCH (20:21)
[2023-07-15 03:39] VITALS: BP 99/64; TEMP 97.9; O2SAT 99
[2023-07-15] MEDS: D5W/LR 1,000 ML IV SCH ×3 (04:46→22:14)
[2023-07-15] MEDS: MORPHINE 4 MG/ML 1ML VIAL IV PRN ×4 (04:46→22:14)
[2023-07-15 05:18] LABS: BASO % 1.1 % (0.0-1.0); EOS % 0.4 % (0.0-3.0); HEMATOCRIT 27.6 % (36.0-47.0); HEMOGLOBIN 8.4 g/dl (12.0-15.5); LYMPH # 0.9 10^3/uL (1.5-5.0); MEAN CORPUSCULAR HEMOGLOBIN 27.5 pg (27.0-33.0); MEAN CORPUSCULAR HGB CONC 30.4 g/dl (32.0-36.5); MEAN CORPUSCULAR VOLUME 90.2 fl (80.0-96.0); MONO # 0.4 10^3/uL (0.0-0.8); MONO % 14.4 % (2.0-8.0); NEUTROPHILS # 1.3 10^3/uL (1.5-8.5); NEUTROPHILS % 48.3 % (36.0-66.0); PLATELET COUNT, AUTOMATED 333 10^3/uL (150-450); RED BLOOD COUNT 3.06 10^6/uL (4.00-5.40); WHITE BLOOD COUNT 2.6 10^3/uL (4.0-10.0)
[2023-07-15 05:49] LABS: ALBUMIN 3.1 G/DL (3.2-5.2); ALKALINE PHOSPHATASE 87 U/L (46-116); ALT/SGPT 22 U/L (7.0-40); AST/SGOT 9 U/L (<34); BILIRUBIN,TOTAL 0.3 MG/DL (0.3-1.2); BLOOD UREA NITROGEN < 5 MG/DL (9-23); CALCIUM LEVEL 8.8 MG/DL (8.5-10.1); CARBON DIOXIDE LEVEL 26 MMOL/L (20-31); CHLORIDE LEVEL 109 MMOL/L (98-107); CREATININE FOR GFR 0.43 MG/DL (0.55-1.30); GLOMERULAR FILTRATION RATE > 60.0 (>60); GLUCOSE, FASTING 101 MG/DL (60-100); MAGNESIUM LEVEL 1.8 MG/DL (1.8-2.4); SODIUM LEVEL 143 MMOL/L (136-145)
[2023-07-15] MEDS: ADVAIR HFA 230/21MCG INHALER INH SCH ×2 (07:32→20:01)
[2023-07-15 07:40] VITALS: BP 101/58; TEMP 97.7; O2SAT 96
[2023-07-15] MEDS: BISACODYL 10MG SUPP PR SCH (08:31)
[2023-07-15] MEDS: FERROUS SULFATE 325MG TAB PO SCH (08:31)
[2023-07-15] MEDS: ASCORBIC ACID 500 MG TAB PO SCH (08:31)
[2023-07-15] MEDS: ENOXAPARIN 30MG/0.3ML SYRINGE (J1650 PER 10MG) SC SCH (08:32)
[2023-07-15] MEDS: MIDODRINE 5 MG TAB PO SCH ×3 (08:32→16:35)
[2023-07-15] MEDS: MAGNESIUM OXIDE 400MG TAB (MAG-OX) PO SCH ×2 (08:32→20:40)
[2023-07-15] MEDS: CYANOCOBALAMIN 500 MCG TAB PO SCH (08:32)
[2023-07-15 16:31] VITALS: BP 118/78; TEMP 97.1; O2SAT 97
[2023-07-15] MEDS: cefTRIAXone SOD 2 GM in D5W MINI-BAG PLUS 50 ML IV SCH (16:35)
[2023-07-15 19:30] VITALS: BP 99/69; TEMP 97.8; O2SAT 98
[2023-07-15] MEDS: AMITRIPTYLINE 25MG TABLET PO SCH (20:39)
[2023-07-15] MEDS: FAMOTIDINE 20 MG TAB PO SCH (20:39)
[2023-07-16 03:35] VITALS: BP 104/52; TEMP 97.6; O2SAT 99
[2023-07-16 05:14] LABS: BASO % 0.8 % (0.0-1.0); EOS % 0.4 % (0.0-3.0); HEMATOCRIT 28.6 % (36.0-47.0); HEMOGLOBIN 8.9 g/dl (12.0-15.5); LYMPH % 39.5 % (24.0-44.0); MEAN CORPUSCULAR HEMOGLOBIN 27.5 pg (27.0-33.0); MEAN CORPUSCULAR HGB CONC 31.1 g/dl (32.0-36.5); MEAN CORPUSCULAR VOLUME 88.3 fl (80.0-96.0); MONO # 0.4 10^3/uL (0.0-0.8); MONO % 16.7 % (2.0-8.0); NEUTROPHILS # 1.1 10^3/uL (1.5-8.5); NEUTROPHILS % 42.2 % (36.0-66.0); PLATELET COUNT, AUTOMATED 349 10^3/uL (150-450); RED BLOOD COUNT 3.24 10^6/uL (4.00-5.40); WHITE BLOOD COUNT 2.6 10^3/uL (4.0-10.0)
[2023-07-16 05:34] LABS: ALBUMIN 3.2 G/DL (3.2-5.2); ALKALINE PHOSPHATASE 83 U/L (46-116); ALT/SGPT 20 U/L (7.0-40); AST/SGOT 8 U/L (<34); BILIRUBIN,TOTAL 0.3 MG/DL (0.3-1.2); BLOOD UREA NITROGEN < 5 MG/DL (9-23); CARBON DIOXIDE LEVEL 26 MMOL/L (20-31); CHLORIDE LEVEL 106 MMOL/L (98-107); CREATININE FOR GFR 0.43 MG/DL (0.55-1.30); GLOMERULAR FILTRATION RATE > 60.0 (>60); GLUCOSE, FASTING 103 MG/DL (60-100); MAGNESIUM LEVEL 1.7 MG/DL (1.8-2.4); POTASSIUM SERUM 3.5 MMOL/L (3.5-5.1); SODIUM LEVEL 141 MMOL/L (136-145)
[2023-07-16] MEDS: D5W/LR 1,000 ML IV SCH ×2 (06:41→09:05)
[2023-07-16 08:00] VITALS: BP 107/64; TEMP 97.1; O2SAT 98
[2023-07-16] MEDS: ADVAIR HFA 230/21MCG INHALER INH SCH ×2 (08:23→20:03)
[2023-07-16] MEDS: MAG SULF 1GM/100ML (MAG RUN) 1 GM in IV 1 EA IV SCH ×2 (09:07→11:01)
[2023-07-16] MEDS: ASCORBIC ACID 500 MG TAB PO SCH (09:08)
[2023-07-16] MEDS: MIDODRINE 5 MG TAB PO SCH ×3 (09:08→16:42)
[2023-07-16] MEDS: CYANOCOBALAMIN 500 MCG TAB PO SCH (09:08)
[2023-07-16] MEDS: BISACODYL 10MG SUPP PR SCH (09:08)
[2023-07-16] MEDS: ENOXAPARIN 30MG/0.3ML SYRINGE (J1650 PER 10MG) SC SCH (09:08)
[2023-07-16] MEDS: FERROUS SULFATE 325MG TAB PO SCH (09:08)
[2023-07-16] MEDS: MAGNESIUM OXIDE 400MG TAB (MAG-OX) PO SCH ×3 (09:16→20:38)
[2023-07-16 16:00] VITALS: BP 98/60; TEMP 97; O2SAT 97
[2023-07-16] MEDS: cefTRIAXone SOD 2 GM in D5W MINI-BAG PLUS 50 ML IV SCH (16:41)
[2023-07-16] MEDS: D5W/0.9% SODIUM CHLORIDE 1,000 ML IV SCH (17:58)
[2023-07-16 20:23] VITALS: BP 117/65; TEMP 97.9; O2SAT 97
[2023-07-16] MEDS: FAMOTIDINE 20 MG TAB PO SCH (20:37)
[2023-07-16] MEDS: AMITRIPTYLINE 25MG TABLET PO SCH (20:38)
[2023-07-17] MEDS: D5W/0.9% SODIUM CHLORIDE 1,000 ML IV SCH ×4 (02:17→22:05)
[2023-07-17 04:36] VITALS: BP 118/59; TEMP 97; O2SAT 98
[2023-07-17 05:40] LABS: HEMATOCRIT 28.1 % (36.0-47.0); MEAN CORPUSCULAR HEMOGLOBIN 28.2 pg (27.0-33.0); MEAN CORPUSCULAR VOLUME 88.1 fl (80.0-96.0); PLATELET COUNT, AUTOMATED 334 10^3/uL (150-450); RED BLOOD COUNT 3.19 10^6/uL (4.00-5.40); WHITE BLOOD COUNT 2.7 10^3/uL (4.0-10.0)
[2023-07-17 05:56] LABS: ALBUMIN 3.1 G/DL (3.2-5.2); ALKALINE PHOSPHATASE 78 U/L (46-116); ALT/SGPT 21 U/L (7.0-40); AST/SGOT 9 U/L (<34); BILIRUBIN,TOTAL 0.3 MG/DL (0.3-1.2); BLOOD UREA NITROGEN < 5 MG/DL (9-23); CALCIUM LEVEL 8.3 MG/DL (8.5-10.1); CARBON DIOXIDE LEVEL 24 MMOL/L (20-31); CHLORIDE LEVEL 109 MMOL/L (98-107); GLOMERULAR FILTRATION RATE > 60.0 (>60); GLUCOSE, FASTING 117 MG/DL (60-100); POTASSIUM SERUM 3.6 MMOL/L (3.5-5.1); SODIUM LEVEL 143 MMOL/L (136-145); TOTAL PROTEIN 5.9 G/DL (5.7-8.2)
[2023-07-17] MEDS: ADVAIR HFA 230/21MCG INHALER INH SCH ×2 (07:15→20:04)
[2023-07-17 07:54] VITALS: BP 100/55; TEMP 97.9; O2SAT 99
[2023-07-17] MEDS: FERROUS SULFATE 325MG TAB PO SCH (09:53)
[2023-07-17] MEDS: MIDODRINE 5 MG TAB PO SCH ×3 (09:53→17:40)
[2023-07-17] MEDS: CYANOCOBALAMIN 500 MCG TAB PO SCH (09:53)
[2023-07-17] MEDS: MAGNESIUM OXIDE 400MG TAB (MAG-OX) PO SCH ×3 (09:53→20:57)
[2023-07-17] MEDS: ASCORBIC ACID 500 MG TAB PO SCH (09:53)
[2023-07-17] MEDS: ENOXAPARIN 30MG/0.3ML SYRINGE (J1650 PER 10MG) SC SCH (09:54)
[2023-07-17] MEDS: BISACODYL 10MG SUPP PR SCH (09:54)
[2023-07-17] MEDS: MORPHINE 4 MG/ML 1ML VIAL IV PRN (13:56)
[2023-07-17] MEDS: cefTRIAXone SOD 2 GM in D5W MINI-BAG PLUS 50 ML IV SCH ×2 (15:28→15:40)
[2023-07-17 16:30] VITALS: BP 105/70; TEMP 97.4; O2SAT 100
[2023-07-17 20:39] VITALS: BP 103/59; TEMP 96.8; O2SAT 100
[2023-07-17] MEDS: AMITRIPTYLINE 25MG TABLET PO SCH (20:57)
[2023-07-17] MEDS: FAMOTIDINE 20 MG TAB PO SCH (20:57)
[2023-07-18 04:28] VITALS: BP 103/64; TEMP 97.2; O2SAT 98
[2023-07-18] MEDS: D5W/0.9% SODIUM CHLORIDE 1,000 ML IV SCH ×2 (04:50→13:09)
[2023-07-18 07:00] LABS: HEMATOCRIT 28.1 % (36.0-47.0); HEMOGLOBIN 9.2 g/dl (12.0-15.5); MEAN CORPUSCULAR HEMOGLOBIN 28.8 pg (27.0-33.0); MEAN CORPUSCULAR HGB CONC 32.7 g/dl (32.0-36.5); MEAN CORPUSCULAR VOLUME 87.8 fl (80.0-96.0); PLATELET COUNT, AUTOMATED 284 10^3/uL (150-450); WHITE BLOOD COUNT 2.7 10^3/uL (4.0-10.0)
[2023-07-18 07:46] LABS: ALKALINE PHOSPHATASE 73 U/L (46-116); ALT/SGPT 20 U/L (7.0-40); AST/SGOT 10 U/L (<34); BILIRUBIN,TOTAL 0.4 MG/DL (0.3-1.2); BLOOD UREA NITROGEN < 5 MG/DL (9-23); CALCIUM LEVEL 8.4 MG/DL (8.5-10.1); CARBON DIOXIDE LEVEL 25 MMOL/L (20-31); CHLORIDE LEVEL 111 MMOL/L (98-107); CREATININE FOR GFR 0.38 MG/DL (0.55-1.30); GLOMERULAR FILTRATION RATE > 60.0 (>60); GLUCOSE, FASTING 112 MG/DL (60-100); POTASSIUM SERUM 3.7 MMOL/L (3.5-5.1); SODIUM LEVEL 141 MMOL/L (136-145); TOTAL PROTEIN 5.7 G/DL (5.7-8.2)
[2023-07-18 07:49] VITALS: BP 104/63; TEMP 97; O2SAT 99
[2023-07-18] MEDS: ADVAIR HFA 230/21MCG INHALER INH SCH ×2 (08:15→19:46)
[2023-07-18] MEDS: ASCORBIC ACID 500 MG TAB PO SCH (08:35)
[2023-07-18] MEDS: MAGNESIUM OXIDE 400MG TAB (MAG-OX) PO SCH ×3 (08:35→20:14)
[2023-07-18] MEDS: CYANOCOBALAMIN 500 MCG TAB PO SCH (08:35)
[2023-07-18] MEDS: FERROUS SULFATE 325MG TAB PO SCH (08:35)
[2023-07-18] MEDS: ENOXAPARIN 30MG/0.3ML SYRINGE (J1650 PER 10MG) SC SCH (08:36)
[2023-07-18] MEDS: BISACODYL 10MG SUPP PR SCH (08:36)
[2023-07-18] MEDS: MIDODRINE 5 MG TAB PO SCH ×3 (08:36→15:10)
[2023-07-18] MEDS: MORPHINE 4 MG/ML 1ML VIAL IV PRN ×2 (10:33→18:45)
[2023-07-18] MEDS ORDERED: FLEET ENEMA PR ONE (12:50)
[2023-07-18 15:35] VITALS: BP 110/63; TEMP 97; O2SAT 99
[2023-07-18] MEDS ORDERED: ROPIvacaine 0.5% 30ML VIAL INJ ONE (15:35)
[2023-07-18] MEDS ORDERED: AMINO AC/ELECTROLYTE/DEX/CALC 2,566 ML IV SCH (18:00)
[2023-07-18] MEDS: INSULIN LISPRO (NovoLOG) PER UNIT SC SCH (18:00)
[2023-07-18] MEDS ORDERED: MORPHINE 10MG/0.5ML ORAL CONCENTRATE SOLUTION U/D SL PRN (19:25)
[2023-07-18 19:56] VITALS: BP 105/65; TEMP 97.9; O2SAT 100
[2023-07-18 20:00] VITALS: TEMP 98
[2023-07-18] MEDS: FAMOTIDINE 20 MG TAB PO SCH (20:13)
[2023-07-18] MEDS: AMITRIPTYLINE 25MG TABLET PO SCH (20:14)
[2023-07-19] VITALS: TEMP 97.6
[2023-07-19] MEDS: INSULIN LISPRO (NovoLOG) PER UNIT SC SCH ×4 (00:52→17:37)
[2023-07-19 04:19] VITALS: BP 135/67; TEMP 96.8; O2SAT 98
[2023-07-19] MEDS ORDERED: GASTROGRAFIN SOLUTION 30ML PO SCH (06:00)
[2023-07-19 07:44] VITALS: BP 106/62; TEMP 97.1; O2SAT 98
[2023-07-19] MEDS: ADVAIR HFA 230/21MCG INHALER INH SCH ×2 (08:16→20:12)
[2023-07-19] MEDS: CYANOCOBALAMIN 500 MCG TAB PO SCH (08:20)
[2023-07-19] MEDS: MAGNESIUM OXIDE 400MG TAB (MAG-OX) PO SCH ×3 (08:20→20:58)
[2023-07-19] MEDS: MIDODRINE 5 MG TAB PO SCH ×3 (08:20→15:23)
[2023-07-19] MEDS: ASCORBIC ACID 500 MG TAB PO SCH (08:20)
[2023-07-19] MEDS: FERROUS SULFATE 325MG TAB PO SCH (08:20)
[2023-07-19] MEDS: ENOXAPARIN 30MG/0.3ML SYRINGE (J1650 PER 10MG) SC SCH (08:21)
[2023-07-19] MEDS: BISACODYL 10MG SUPP PR SCH (08:21)
[2023-07-19] MEDS: MORPHINE 4 MG/ML 1ML VIAL IV PRN ×3 (10:12→20:59)
[2023-07-19 11:53] VITALS: BP 114/67; TEMP 97.8; O2SAT 98
[2023-07-19] MEDS: ONDANSETRON 4MG TAB PO PRN (15:22)
[2023-07-19 15:50] VITALS: BP 100/62; TEMP 98; O2SAT 96
[2023-07-19] MEDS ORDERED: SODIUM CHLORIDE 0.9% INJ 10 ML SYR IV PRN (15:50)
[2023-07-19] MEDS ORDERED: FAT EMULSION IV 250 ML IV ONE (18:00)
[2023-07-19] MEDS ORDERED: AMINO AC/ELECTROLYTE/DEX/CALC 1,000 ML IV SCH (18:00)
[2023-07-19 19:45] VITALS: BP 96/64; TEMP 97.9; O2SAT 98
[2023-07-19] MEDS: AMITRIPTYLINE 25MG TABLET PO SCH (20:58)
[2023-07-19] MEDS: FAMOTIDINE 20 MG TAB PO SCH (20:58)
[2023-07-19] MEDS: diphenhydrAMINE 50MG/ML VIAL IV PRN (20:58)
[2023-07-19] MEDS: SODIUM CHLORIDE 0.9% INJ 10 ML SYR IV SCH (21:00)
[2023-07-20 03:51] VITALS: BP 110/66; TEMP 97.5; O2SAT 99
[2023-07-20] MEDS: INSULIN LISPRO (NovoLOG) PER UNIT SC SCH ×3 (05:50→12:00)
[2023-07-20 06:01] LABS: BASO % 0.3 % (0.0-1.0); HEMATOCRIT 33.4 % (36.0-47.0); HEMOGLOBIN 10.7 g/dl (12.0-15.5); LYMPH # 1.3 10^3/uL (1.5-5.0); LYMPH % 33.8 % (24.0-44.0); MEAN CORPUSCULAR HEMOGLOBIN 27.7 pg (27.0-33.0); MEAN CORPUSCULAR VOLUME 86.5 fl (80.0-96.0); MONO # 0.5 10^3/uL (0.0-0.8); MONO % 13.4 % (2.0-8.0); PLATELET COUNT, AUTOMATED 287 10^3/uL (150-450); RED BLOOD COUNT 3.86 10^6/uL (4.00-5.40)
[2023-07-20] MEDS: MORPHINE 4 MG/ML 1ML VIAL IV PRN ×2 (06:07→11:19)
[2023-07-20] MEDS: diphenhydrAMINE 50MG/ML VIAL IV PRN (06:07)
[2023-07-20] MEDS: GASTROGRAFIN SOLUTION 30ML PO SCH ×2 (06:11→06:53)
[2023-07-20] MEDS: SODIUM CHLORIDE 0.9% INJ 10 ML SYR IV SCH (06:13)
[2023-07-20 06:49] LABS: BLOOD UREA NITROGEN 9 MG/DL (9-23); CALCIUM LEVEL 9.5 MG/DL (8.5-10.1); CARBON DIOXIDE LEVEL 28 MMOL/L (20-31); CHLORIDE LEVEL 103 MMOL/L (98-107); CREATININE FOR GFR 0.48 MG/DL (0.55-1.30); GLOMERULAR FILTRATION RATE > 60.0 (>60); GLUCOSE, FASTING 94 MG/DL (60-100); POTASSIUM SERUM 4.2 MMOL/L (3.5-5.1); SODIUM LEVEL 139 MMOL/L (136-145)
[2023-07-20 07:30] VITALS: BP 100/66; TEMP 97.4; O2SAT 98
[2023-07-20] MEDS: ADVAIR HFA 230/21MCG INHALER INH SCH (07:46)
[2023-07-20] MEDS ORDERED: ISOVUE-370 76% 100ML VIAL As Ordered ONE (07:50)
[2023-07-20] MEDS: FERROUS SULFATE 325MG TAB PO SCH (09:07)
[2023-07-20] MEDS: BISACODYL 10MG SUPP PR SCH (09:07)
[2023-07-20] MEDS: MIDODRINE 5 MG TAB PO SCH ×2 (09:07→11:20)
[2023-07-20] MEDS: ENOXAPARIN 30MG/0.3ML SYRINGE (J1650 PER 10MG) SC SCH (09:07)
[2023-07-20] MEDS: ASCORBIC ACID 500 MG TAB PO SCH (09:08)
[2023-07-20] MEDS: CYANOCOBALAMIN 500 MCG TAB PO SCH (09:08)
[2023-07-20] MEDS ORDERED: LORazepam 2 MG/ML 1ML VIAL IV STA (09:50)
[2023-07-20] MEDS ORDERED: ALPRAZolam 0.5 MG TAB PO ONE (09:50)
[2023-07-20 10:00] VITALS: BP 114/78; TEMP 97.5; O2SAT 98
== END 2023-07-20 11:50 | disposition short-term general hospital (02) | DRG 720 ==
LOC: M ED 11:44 → M PCU 17:19 → M ED INP 17:19 → ENRESERV 20:21 → M PCU 21:20
PROVIDERS: ADMIT Internal Medicine; ATTEND Internal Medicine Nephrology
PROC: 0DHA4UZ Insertion of Feeding Device into Jejunum, Percutaneous Endoscopic Approach (ICD-10-PCS; principal; 2023-07-13 13:00)
DX: A41.89 Other specified sepsis (principal); E43 Unspecified severe protein-calorie malnutrition; R65.21 Severe sepsis with septic shock; D61.818 Other pancytopenia; D84.9 Immunodeficiency, unspecified; Q79.60 Ehlers-Danlos syndrome, unspecified; E83.42 Hypomagnesemia; E46 Unspecified protein-calorie malnutrition; K31.84 Gastroparesis; G90.A Postural orthostatic tachycardia syndrome [POTS]; E83.39 Other disorders of phosphorus metabolism; J45.909 Unspecified asthma, uncomplicated; D50.9 Iron deficiency anemia, unspecified; R10.9 Unspecified abdominal pain; R25.1 Tremor, unspecified; K59.01 Slow transit constipation; G93.32 Myalgic encephalomyelitis/chronic fatigue syndrome; M25.50 Pain in unspecified joint; N81.6 Rectocele; J38.3 Other diseases of vocal cords; Z88.8 Allergy status to other drugs, medicaments and biological substances; Z79.899 Other long term (current) drug therapy; F41.9 Anxiety disorder, unspecified; G47.00 Insomnia, unspecified; G43.909 Migraine, unspecified, not intractable, without status migrainosus; K21.9 Gastro-esophageal reflux disease without esophagitis; E87.6 Hypokalemia

== ENCOUNTER → 2023-08-04 | Outpatient (CLI) | payer BC ==
[~2023-08-04] MED LIST changes: +LEVA1.2525 INH
[2023-08-04 15:09] LABS: HEMOGLOBIN 11.2 g/dl (12.0-15.5); MEAN CORPUSCULAR HEMOGLOBIN 27.9 pg (27.0-33.0); MEAN CORPUSCULAR HGB CONC 31.1 g/dl (32.0-36.5); MEAN CORPUSCULAR VOLUME 89.8 fl (80.0-96.0); PLATELET COUNT, AUTOMATED 243 10^3/uL (150-450); RED BLOOD COUNT 4.01 10^6/uL (4.00-5.40); WHITE BLOOD COUNT 5.5 10^3/uL (4.0-10.0)
[2023-08-04 15:42] LABS: ALBUMIN 3.8 G/DL (3.2-5.2); ALKALINE PHOSPHATASE 79 U/L (46-116); ALT/SGPT 36 U/L (7.0-40); AST/SGOT 15 U/L (<34); BILIRUBIN,DIRECT < 0.1 MG/DL (<0.4); BILIRUBIN,TOTAL < 0.2 MG/DL (0.3-1.2); BLOOD UREA NITROGEN 12 MG/DL (9-23); CALCIUM LEVEL 8.9 MG/DL (8.5-10.1); CARBON DIOXIDE LEVEL 30 MMOL/L (20-31); CHLORIDE LEVEL 107 MMOL/L (98-107); CREATININE FOR GFR 0.56 MG/DL (0.55-1.30); GLOMERULAR FILTRATION RATE > 60.0 (>60); GLUCOSE, FASTING 84 MG/DL (60-100); POTASSIUM SERUM 4.1 MMOL/L (3.5-5.1); SODIUM LEVEL 141 MMOL/L (136-145); TOTAL PROTEIN 7.3 G/DL (5.7-8.2)
== END ==
LOC: M LAB 14:33
PROVIDERS: ATTEND Internal Medicine Gastroenterology
DX: K31.84 Gastroparesis (principal); R62.7 Adult failure to thrive

== ENCOUNTER → 2023-08-04 | Outpatient (CLI) | payer BC ==
[2023-08-04 15:09] LABS: BASO % 0.6 % (0.0-1.0); EOS # 0.4 10^3/uL (0.0-0.5); EOS % 6.9 % (0.0-3.0); HEMATOCRIT 35.4 % (36.0-47.0); HEMOGLOBIN 11.3 g/dl (12.0-15.5); LYMPH # 2.1 10^3/uL (1.5-5.0); LYMPH % 40.6 % (24.0-44.0); MEAN CORPUSCULAR HEMOGLOBIN 28.7 pg (27.0-33.0); MEAN CORPUSCULAR HGB CONC 31.9 g/dl (32.0-36.5); MEAN CORPUSCULAR VOLUME 89.8 fl (80.0-96.0); MONO # 0.3 10^3/uL (0.0-0.8); MONO % 5.2 % (2.0-8.0); NEUTROPHILS # 2.4 10^3/uL (1.5-8.5); NEUTROPHILS % 46.5 % (36.0-66.0); PLATELET COUNT, AUTOMATED 242 10^3/uL (150-450); RED BLOOD COUNT 3.94 10^6/uL (4.00-5.40); WHITE BLOOD COUNT 5.2 10^3/uL (4.0-10.0)
[2023-08-04 15:36] LABS: ERYTHROCYTE SEDIMENTATION RATE 50 mm/hr (0-20)
[2023-08-04 15:42] LABS: C REACTIVE PROTEIN QUANTITATIV < 0.40 MG/DL (<1.0)
[2023-08-04 15:43] LABS: ALBUMIN 3.9 G/DL (3.2-5.2); ALKALINE PHOSPHATASE 82 U/L (46-116); ALT/SGPT 37 U/L (7.0-40); AST/SGOT 14 U/L (<34); BILIRUBIN,TOTAL 0.2 MG/DL (0.3-1.2); BLOOD UREA NITROGEN 13 MG/DL (9-23); CARBON DIOXIDE LEVEL 30 MMOL/L (20-31); CHLORIDE LEVEL 107 MMOL/L (98-107); CREATININE FOR GFR 0.56 MG/DL (0.55-1.30); GLOMERULAR FILTRATION RATE > 60.0 (>60); GLUCOSE, FASTING 83 MG/DL (60-100); POTASSIUM SERUM 4.1 MMOL/L (3.5-5.1); SODIUM LEVEL 140 MMOL/L (136-145); TOTAL PROTEIN 7.4 G/DL (5.7-8.2)
[2023-08-05 19:19] LABS: RHEUMATOID FACTOR QUANT < 3.5 IU/ML (<14)
== END ==
LOC: M LAB 14:36
PROVIDERS: ATTEND Nurse Practitioner Family
DX: M12.9 Arthropathy, unspecified (principal)

== ENCOUNTER → 2023-08-07 | Outpatient (REF) | payer BC ==
[2023-08-07 14:06] LABS: BASO % 0.5 % (0.0-1.0); EOS # 0.3 10^3/uL (0.0-0.5); EOS % 4.2 % (0.0-3.0); HEMATOCRIT 30.3 % (36.0-47.0); HEMOGLOBIN 9.6 g/dl (12.0-15.5); LYMPH # 1.5 10^3/uL (1.5-5.0); MEAN CORPUSCULAR HEMOGLOBIN 28.7 pg (27.0-33.0); MEAN CORPUSCULAR HGB CONC 31.7 g/dl (32.0-36.5); MEAN CORPUSCULAR VOLUME 90.7 fl (80.0-96.0); MONO # 0.3 10^3/uL (0.0-0.8); NEUTROPHILS # 4.5 10^3/uL (1.5-8.5); NEUTROPHILS % 67.1 % (36.0-66.0); PLATELET COUNT, AUTOMATED 235 10^3/uL (150-450); RED BLOOD COUNT 3.34 10^6/uL (4.00-5.40); WHITE BLOOD COUNT 6.7 10^3/uL (4.0-10.0)
[2023-08-07 14:46] LABS: ALBUMIN 3.3 G/DL (3.2-5.2); ALKALINE PHOSPHATASE 63 U/L (46-116); ALT/SGPT 28 U/L (7.0-40); AST/SGOT 14 U/L (<34); BILIRUBIN,DIRECT 0.1 MG/DL (<0.4); BILIRUBIN,TOTAL 0.2 MG/DL (0.3-1.2); BLOOD UREA NITROGEN 13 MG/DL (9-23); CALCIUM LEVEL 8.6 MG/DL (8.5-10.1); CARBON DIOXIDE LEVEL 28 MMOL/L (20-31); CHLORIDE LEVEL 105 MMOL/L (98-107); CREATININE FOR GFR 0.63 MG/DL (0.55-1.30); GLOMERULAR FILTRATION RATE > 60.0 (>60); GLUCOSE, FASTING 61 MG/DL (60-100); POTASSIUM SERUM 3.5 MMOL/L (3.5-5.1); SODIUM LEVEL 142 MMOL/L (136-145); TOTAL PROTEIN 6.2 G/DL (5.7-8.2)
== END ==
LOC: M SHH 13:12
PROVIDERS: ATTEND Internal Medicine Gastroenterology
DX: R62.7 Adult failure to thrive (principal); K31.84 Gastroparesis; R63.4 Abnormal weight loss

== ENCOUNTER → 2023-08-28 | Outpatient (REF) | payer BC ==
[~2023-08-28] MED LIST changes: +GABA-282; +GABA-282 PO; +ONDA4TAB6 PO; +PRIM50TA6 PO
[2023-08-28 14:39] LABS: EOS # 0.2 10^3/uL (0.0-0.5); EOS % 5.4 % (0.0-3.0); HEMATOCRIT 25.7 % (36.0-47.0); HEMOGLOBIN 8.1 g/dl (12.0-15.5); LYMPH # 2.3 10^3/uL (1.5-5.0); LYMPH % 56.4 % (24.0-44.0); MEAN CORPUSCULAR HEMOGLOBIN 27.8 pg (27.0-33.0); MEAN CORPUSCULAR HGB CONC 31.5 g/dl (32.0-36.5); MEAN CORPUSCULAR VOLUME 88.3 fl (80.0-96.0); MONO # 0.3 10^3/uL (0.0-0.8); MONO % 8.2 % (2.0-8.0); NEUTROPHILS # 1.2 10^3/uL (1.5-8.5); NEUTROPHILS % 28.8 % (36.0-66.0); PLATELET COUNT, AUTOMATED 364 10^3/uL (150-450); RED BLOOD COUNT 2.91 10^6/uL (4.00-5.40)
[2023-08-28 17:17] LABS: CPK CREATINE PHOSPHOKINASE 20 U/L (34-145); CREATININE FOR GFR 0.53 MG/DL (0.55-1.30); GLOMERULAR FILTRATION RATE > 60.0 (>60)
== END ==
LOC: M SHH 14:23
DX: R78.81 Bacteremia (principal)

== ENCOUNTER → 2023-08-28 | Outpatient (REF) | payer BC ==
[~2023-08-28] MED LIST changes: -GABA-282; -GABA-282 PO; -ONDA4TAB6 PO; -PRIM50TA6 PO
[2023-08-28 14:39] LABS: BASO % 0.7 % (0.0-1.0); EOS # 0.3 10^3/uL (0.0-0.5); EOS % 6.2 % (0.0-3.0); HEMATOCRIT 25.3 % (36.0-47.0); HEMOGLOBIN 8.2 g/dl (12.0-15.5); LYMPH # 2.2 10^3/uL (1.5-5.0); LYMPH % 54.8 % (24.0-44.0); MEAN CORPUSCULAR HEMOGLOBIN 28.8 pg (27.0-33.0); MEAN CORPUSCULAR HGB CONC 32.4 g/dl (32.0-36.5); MEAN CORPUSCULAR VOLUME 88.8 fl (80.0-96.0); MONO # 0.3 10^3/uL (0.0-0.8); MONO % 7.7 % (2.0-8.0); NEUTROPHILS # 1.2 10^3/uL (1.5-8.5); NEUTROPHILS % 30.1 % (36.0-66.0); PLATELET COUNT, AUTOMATED 371 10^3/uL (150-450); RED BLOOD COUNT 2.85 10^6/uL (4.00-5.40); WHITE BLOOD COUNT 4.1 10^3/uL (4.0-10.0)
[2023-08-28 15:08] LABS: ALBUMIN 3.4 G/DL (3.2-5.2); ALKALINE PHOSPHATASE 63 U/L (46-116); ALT/SGPT 21 U/L (7.0-40); AST/SGOT 18 U/L (<34); BILIRUBIN,DIRECT < 0.1 MG/DL (<0.4); BILIRUBIN,TOTAL 0.2 MG/DL (0.3-1.2); BLOOD UREA NITROGEN 17 MG/DL (9-23); CALCIUM LEVEL 8.6 MG/DL (8.5-10.1); CARBON DIOXIDE LEVEL 29 MMOL/L (20-31); CHLORIDE LEVEL 107 MMOL/L (98-107); CREATININE FOR GFR 0.53 MG/DL (0.55-1.30); GLOMERULAR FILTRATION RATE > 60.0 (>60); GLUCOSE, FASTING 99 MG/DL (60-100); POTASSIUM SERUM 3.8 MMOL/L (3.5-5.1); SODIUM LEVEL 141 MMOL/L (136-145); TOTAL PROTEIN 6.6 G/DL (5.7-8.2)
== END ==
LOC: M SHH 14:20
PROVIDERS: ATTEND Internal Medicine Gastroenterology
DX: R62.7 Adult failure to thrive (principal); K31.84 Gastroparesis; R63.4 Abnormal weight loss

== ENCOUNTER 2023-09-01 08:06 | Inpatient (IN) | payer BC ==
[~2023-09-01] VITALS: Ht 172.7 cm; Wt 32.7 kg
[2023-09-01 10:06] LABS: BASO % 0.2 % (0.0-1.0); HEMATOCRIT 21.1 % (36.0-47.0); LYMPH # 0.4 10^3/uL (1.5-5.0); MEAN CORPUSCULAR HEMOGLOBIN 27.9 pg (27.0-33.0); MEAN CORPUSCULAR HGB CONC 31.8 g/dl (32.0-36.5); MEAN CORPUSCULAR VOLUME 87.9 fl (80.0-96.0); MONO # 0.1 10^3/uL (0.0-0.8); MONO % 1.6 % (2.0-8.0); NEUTROPHILS # 8.4 10^3/uL (1.5-8.5); NEUTROPHILS % 93.6 % (36.0-66.0); PLATELET COUNT, AUTOMATED 189 10^3/uL (150-450)
[2023-09-01 10:08] LABS: HEMOGLOBIN 6.7 g/dl (12.0-15.5)
[2023-09-01] MEDS ORDERED: GABA-282 (10:15)
[2023-09-01 10:25] LABS: INR 1.21; PARTIAL THROMBOPLASTIN TIME 26.1 SECONDS (24.8-34.2)
[2023-09-01 10:31] LABS: LIPASE 26 U/L (12-53)
[2023-09-01 10:34] LABS: ALBUMIN 3.1 G/DL (3.2-5.2); ALKALINE PHOSPHATASE 53 U/L (46-116); ALT/SGPT 32 U/L (7.0-40); AST/SGOT 37 U/L (<34); BILIRUBIN,DIRECT < 0.1 MG/DL (<0.4); BILIRUBIN,TOTAL 0.3 MG/DL (0.3-1.2); BLOOD UREA NITROGEN 13 MG/DL (9-23); CALCIUM LEVEL 8.3 MG/DL (8.5-10.1); CARBON DIOXIDE LEVEL 24 MMOL/L (20-31); CHLORIDE LEVEL 105 MMOL/L (98-107); CREATININE FOR GFR 0.57 MG/DL (0.55-1.30); GLOMERULAR FILTRATION RATE > 60.0 (>60); GLUCOSE, FASTING 99 MG/DL (60-100); MAGNESIUM LEVEL 1.6 MG/DL (1.8-2.4); PHOSPHORUS LEVEL 3.2 MG/DL (2.5-4.9); POTASSIUM SERUM 4.2 MMOL/L (3.5-5.1); SODIUM LEVEL 137 MMOL/L (136-145); TOTAL PROTEIN 5.9 G/DL (5.7-8.2)
[2023-09-01 10:39] LABS: PROCALCITONIN 39.37 ng/ml
[2023-09-01] MEDS ORDERED: ACETAMINOPHEN TAB 650MG DOSE (2X325MG) PO ONE (10:40)
[2023-09-01] MEDS ORDERED: MAG SULF 1GM/100ML (MAG RUN) 1 GM in IV 1 EA IV ONE ×2 (10:40→16:00)
[2023-09-01 11:06] LABS: TOTAL IRON BINDING CAPACITY 346 UG/DL (250-425)
[2023-09-01 11:09] LABS: FERRITIN 12.4 NG/ML (7.3-270.7)
[2023-09-01 11:11] LABS: IRON (FE) < 5 UG/DL (50-170); PERCENT SATURATION 1.4 % (13.2-45.0)
[2023-09-01] MEDS ORDERED: CEFEPIME HCL 2 GM in D5W MINI-BAG PLUS 50 ML IV ONE (11:15)
[2023-09-01] MEDS ORDERED: MED REC IN PROGRESS XX SCH (12:00)
[2023-09-01] MEDS ORDERED: GABA-282 PO (12:17)
[2023-09-01] MEDS ORDERED: ONDA4TAB6 PO (12:17)
[2023-09-01] MEDS ORDERED: PRIM50TA6 PO (12:17)
[2023-09-01 12:23] VITALS: BP 95/49; TEMP 100.6; O2SAT 98
[2023-09-01] MEDS ORDERED: HOME MED LIST COMPLETE! XX SCH (12:30)
[2023-09-01 12:38] VITALS: BP 85/48; TEMP 100.4; O2SAT 98
[2023-09-01 13:33] VITALS: BP 86/49; TEMP 99.6; O2SAT 97
[2023-09-01 13:56] VITALS: BP 94/51; TEMP 98.8; O2SAT 98
[2023-09-01] MEDS ORDERED: NS 1,000 ML IV ONE (14:00)
[2023-09-01] MEDS ORDERED: MAALOX 30 ML SUSP *UDC PO PRN (14:05)
[2023-09-01] MEDS ORDERED: MOM 30ML SUSPENSION UDC PO PRN (14:05)
[2023-09-01 14:52] LABS: HEMATOCRIT 25.3 % (36.0-47.0); HEMOGLOBIN 8.3 g/dl (12.0-15.5)
[2023-09-01] MEDS ORDERED: SUMAtriptan SUCCINATE 25 MG TAB PO PRN (15:20)
[2023-09-01] MEDS ORDERED: LEVALBUTEROL 1.25MG 0.5ML CONCENTRATE NEB INH PRN (15:20)
[2023-09-01] MEDS ORDERED: FLEET ENEMA PR PRN (15:20)
[2023-09-01 16:16] VITALS: BP 94/58; TEMP 98.1; O2SAT 100
[2023-09-01] MEDS: NS 1,000 ML IV SCH (16:40)
[2023-09-01] MEDS: MIDODRINE 5 MG TAB PO SCH (16:40)
[2023-09-01 18:13] LABS: HEMATOCRIT 29.3 % (36.0-47.0); HEMOGLOBIN 9.6 g/dl (12.0-15.5)
[2023-09-01] MEDS: ADVAIR HFA 230/21MCG INHALER INH SCH (19:32)
[2023-09-01 20:00] VITALS: BP 101/56; TEMP 100.1; O2SAT 96
[2023-09-01] MEDS: AMITRIPTYLINE 25MG TABLET PO SCH (20:18)
[2023-09-01] MEDS: GABAPENTIN 300 MG CAP PO SCH (20:18)
[2023-09-01] MEDS: FAMOTIDINE 20 MG TAB PO SCH (20:18)
[2023-09-01] MEDS: PRIMIDONE 50MG TAB PO SCH (20:19)
[2023-09-01] MEDS: ACETAMINOPHEN TAB 650MG DOSE (2X325MG) PO PRN (20:19)
[2023-09-01] MEDS ORDERED: AMITIZA 24 MCG PO SCH (21:00)
[2023-09-01] MEDS: CEFEPIME HCL 2 GM in D5W MINI-BAG PLUS 50 ML IV SCH (22:28)
[2023-09-01 22:47] LABS: HEMATOCRIT 24.4 % (36.0-47.0); HEMOGLOBIN 8.1 g/dl (12.0-15.5)
[2023-09-02] VITALS (7 sets, daily range): BP systolic 90–102; BP diastolic 51–66; TEMP 96.7–98.7; O2SAT 97–100
[2023-09-02] MEDS: NS 1,000 ML IV SCH ×2 (04:47→18:12)
[2023-09-02] MEDS: ADVAIR HFA 230/21MCG INHALER INH SCH ×2 (07:50→19:57)
[2023-09-02 08:07] LABS: BASO % 0.4 % (0.0-1.0); EOS # 0.1 10^3/uL (0.0-0.5); EOS % 1.3 % (0.0-3.0); HEMATOCRIT 25.7 % (36.0-47.0); HEMOGLOBIN 8.4 g/dl (12.0-15.5); LYMPH # 1.1 10^3/uL (1.5-5.0); LYMPH % 20.1 % (24.0-44.0); MEAN CORPUSCULAR HEMOGLOBIN 28.8 pg (27.0-33.0); MEAN CORPUSCULAR HGB CONC 32.7 g/dl (32.0-36.5); MONO # 0.4 10^3/uL (0.0-0.8); NEUTROPHILS # 3.7 10^3/uL (1.5-8.5); NEUTROPHILS % 69.8 % (36.0-66.0); PLATELET COUNT, AUTOMATED 157 10^3/uL (150-450); RED BLOOD COUNT 2.92 10^6/uL (4.00-5.40); WHITE BLOOD COUNT 5.4 10^3/uL (4.0-10.0)
[2023-09-02] MEDS: MIDODRINE 5 MG TAB PO SCH ×3 (08:22→16:30)
[2023-09-02] MEDS: BISACODYL 10MG SUPP PR SCH (08:22)
[2023-09-02 08:39] LABS: BLOOD UREA NITROGEN 10 MG/DL (9-23); CALCIUM LEVEL 7.9 MG/DL (8.5-10.1); CARBON DIOXIDE LEVEL 24 MMOL/L (20-31); CHLORIDE LEVEL 106 MMOL/L (98-107); CREATININE FOR GFR 0.47 MG/DL (0.55-1.30); GLOMERULAR FILTRATION RATE > 60.0 (>60); GLUCOSE, FASTING 81 MG/DL (60-100); SODIUM LEVEL 136 MMOL/L (136-145)
[2023-09-02] MEDS ORDERED: DAPT500V8 IV (09:32)
[2023-09-02] MEDS: CEFEPIME HCL 2 GM in D5W MINI-BAG PLUS 50 ML IV SCH ×2 (10:57→20:58)
[2023-09-02] MEDS ORDERED: DAPTOmycin 400 MG in NS 50 ML IV SCH (12:00)
[2023-09-02] MEDS: FAMOTIDINE 20 MG TAB PO SCH (20:56)
[2023-09-02] MEDS: PRIMIDONE 50MG TAB PO SCH (20:57)
[2023-09-02] MEDS: AMITRIPTYLINE 25MG TABLET PO SCH (20:57)
[2023-09-02] MEDS: GABAPENTIN 300 MG CAP PO SCH (20:57)
[2023-09-03 03:33] VITALS: BP 94/58; TEMP 97; O2SAT 99
[2023-09-03] MEDS: HEPARIN SOD (PORCINE) 5000UNITS/ML 1ML VIAL/SYRINGE SC SCH ×2 (06:39→17:27)
[2023-09-03] MEDS: NS 1,000 ML IV SCH ×2 (06:42→21:28)
[2023-09-03 07:21] LABS: BASO % 0.5 % (0.0-1.0); EOS # 0.2 10^3/uL (0.0-0.5); EOS % 4.6 % (0.0-3.0); HEMATOCRIT 26.7 % (36.0-47.0); HEMOGLOBIN 8.6 g/dl (12.0-15.5); LYMPH # 1.1 10^3/uL (1.5-5.0); LYMPH % 25.3 % (24.0-44.0); MEAN CORPUSCULAR HEMOGLOBIN 28.1 pg (27.0-33.0); MEAN CORPUSCULAR HGB CONC 32.2 g/dl (32.0-36.5); MEAN CORPUSCULAR VOLUME 87.3 fl (80.0-96.0); MONO # 0.5 10^3/uL (0.0-0.8); MONO % 10.8 % (2.0-8.0); NEUTROPHILS # 2.6 10^3/uL (1.5-8.5); NEUTROPHILS % 58.8 % (36.0-66.0); PLATELET COUNT, AUTOMATED 187 10^3/uL (150-450); RED BLOOD COUNT 3.06 10^6/uL (4.00-5.40); WHITE BLOOD COUNT 4.4 10^3/uL (4.0-10.0)
[2023-09-03] MEDS: ADVAIR HFA 230/21MCG INHALER INH SCH ×2 (07:44→19:49)
[2023-09-03 07:48] LABS: ALBUMIN 2.8 G/DL (3.2-5.2); ALKALINE PHOSPHATASE 56 U/L (46-116); ALT/SGPT 26 U/L (7.0-40); AST/SGOT 22 U/L (<34); BILIRUBIN,TOTAL 0.3 MG/DL (0.3-1.2); BLOOD UREA NITROGEN 6 MG/DL (9-23); CALCIUM LEVEL 8.3 MG/DL (8.5-10.1); CARBON DIOXIDE LEVEL 25 MMOL/L (20-31); CHLORIDE LEVEL 105 MMOL/L (98-107); CREATININE FOR GFR 0.48 MG/DL (0.55-1.30); GLOMERULAR FILTRATION RATE > 60.0 (>60); GLUCOSE, FASTING 75 MG/DL (60-100); MAGNESIUM LEVEL 2.1 MG/DL (1.8-2.4); POTASSIUM SERUM 4.2 MMOL/L (3.5-5.1); SODIUM LEVEL 137 MMOL/L (136-145); TOTAL PROTEIN 5.8 G/DL (5.7-8.2)
[2023-09-03 08:58] VITALS: BP 98/62; TEMP 97.4; O2SAT 100
[2023-09-03] MEDS: MIDODRINE 5 MG TAB PO SCH ×3 (10:03→17:26)
[2023-09-03] MEDS: BISACODYL 10MG SUPP PR SCH (10:04)
[2023-09-03] MEDS: CEFEPIME HCL 2 GM in D5W MINI-BAG PLUS 50 ML IV SCH ×2 (10:10→21:27)
[2023-09-03 11:29] VITALS: BP 104/68; TEMP 96.5; O2SAT 100
[2023-09-03] MEDS ORDERED: DAPTOmycin 400 MG in NS 50 ML IV SCH (12:00)
[2023-09-03] MEDS: DAPTOmycin 400 MG in NS 50 ML IV SCH (13:15)
[2023-09-03 15:43] VITALS: BP 104/50; TEMP 97.2; O2SAT 100
[2023-09-03 20:00] VITALS: BP 106/50; TEMP 97.8; O2SAT 100
[2023-09-03] MEDS: FAMOTIDINE 20 MG TAB PO SCH (21:25)
[2023-09-03] MEDS: PRIMIDONE 50MG TAB PO SCH (21:26)
[2023-09-03] MEDS: GABAPENTIN 300 MG CAP PO SCH (21:26)
[2023-09-03] MEDS: AMITRIPTYLINE 25MG TABLET PO SCH (21:31)
[2023-09-04] VITALS (8 sets, daily range): BP systolic 94–112; BP diastolic 52–62; TEMP 97.2–100.7; O2SAT 98–100
[2023-09-04] MEDS: ACETAMINOPHEN TAB 650MG DOSE (2X325MG) PO PRN (00:08)
[2023-09-04 06:17] LABS: BASO % 0.3 % (0.0-1.0); EOS # 0.1 10^3/uL (0.0-0.5); EOS % 0.8 % (0.0-3.0); HEMOGLOBIN 8.5 g/dl (12.0-15.5); LYMPH # 0.9 10^3/uL (1.5-5.0); LYMPH % 15.2 % (24.0-44.0); MEAN CORPUSCULAR HEMOGLOBIN 28.5 pg (27.0-33.0); MEAN CORPUSCULAR HGB CONC 32.7 g/dl (32.0-36.5); MEAN CORPUSCULAR VOLUME 87.2 fl (80.0-96.0); MONO # 0.3 10^3/uL (0.0-0.8); MONO % 5.4 % (2.0-8.0); NEUTROPHILS # 4.6 10^3/uL (1.5-8.5); NEUTROPHILS % 78.1 % (36.0-66.0); PLATELET COUNT, AUTOMATED 161 10^3/uL (150-450); RED BLOOD COUNT 2.98 10^6/uL (4.00-5.40); WHITE BLOOD COUNT 5.9 10^3/uL (4.0-10.0)
[2023-09-04] MEDS: HEPARIN SOD (PORCINE) 5000UNITS/ML 1ML VIAL/SYRINGE SC SCH ×2 (06:24→17:04)
[2023-09-04 06:46] LABS: ALKALINE PHOSPHATASE 60 U/L (46-116); ALT/SGPT 22 U/L (7.0-40); AST/SGOT 16 U/L (<34); BILIRUBIN,TOTAL 0.5 MG/DL (0.3-1.2); BLOOD UREA NITROGEN 6 MG/DL (9-23); CALCIUM LEVEL 8.2 MG/DL (8.5-10.1); CARBON DIOXIDE LEVEL 24 MMOL/L (20-31); CHLORIDE LEVEL 103 MMOL/L (98-107); CREATININE FOR GFR 0.56 MG/DL (0.55-1.30); GLOMERULAR FILTRATION RATE > 60.0 (>60); GLUCOSE, FASTING 67 MG/DL (60-100); MAGNESIUM LEVEL 1.8 MG/DL (1.8-2.4); POTASSIUM SERUM 3.6 MMOL/L (3.5-5.1); SODIUM LEVEL 138 MMOL/L (136-145); TOTAL PROTEIN 6.2 G/DL (5.7-8.2)
[2023-09-04] MEDS: ADVAIR HFA 230/21MCG INHALER INH SCH ×2 (08:10→20:54)
[2023-09-04] MEDS: MIDODRINE 5 MG TAB PO SCH ×3 (08:33→17:04)
[2023-09-04] MEDS: CEFEPIME HCL 2 GM in D5W MINI-BAG PLUS 50 ML IV SCH ×2 (08:33→17:05)
[2023-09-04] MEDS: BISACODYL 10MG SUPP PR SCH (08:33)
[2023-09-04] MEDS ORDERED: LIDOCAINE W/EPINEPHRINE 1% 20ML VIAL As Ordered ONE (10:20)
[2023-09-04] MEDS: NS 1,000 ML IV SCH (10:20)
[2023-09-04] MEDS ORDERED: MIDAZOLAM INJ 2MG/2ML VIAL As Ordered ONE (11:06)
[2023-09-04] MEDS ORDERED: fentaNYL 100 MCG/2 ML INJECTION As Ordered ONE (11:06)
[2023-09-04] MEDS: DAPTOmycin 400 MG in NS 50 ML IV SCH (12:44)
[2023-09-04] MEDS: AMITRIPTYLINE 25MG TABLET PO SCH (20:47)
[2023-09-04] MEDS: FAMOTIDINE 20 MG TAB PO SCH (20:47)
[2023-09-04] MEDS: GABAPENTIN 300 MG CAP PO SCH (20:47)
[2023-09-04] MEDS: PRIMIDONE 50MG TAB PO SCH (20:48)
[2023-09-04] MEDS: D5W/0.9% SODIUM CHLORIDE 1,000 ML IV SCH (20:48)
[2023-09-05] VITALS: BP 96/64; TEMP 96.7; O2SAT 99
[2023-09-05] MEDS: CEFEPIME HCL 2 GM in D5W MINI-BAG PLUS 50 ML IV SCH ×3 (01:30→17:09)
[2023-09-05 03:25] VITALS: BP 90/56; TEMP 96.7; O2SAT 100
[2023-09-05] MEDS: HEPARIN SOD (PORCINE) 5000UNITS/ML 1ML VIAL/SYRINGE SC SCH ×2 (05:42→17:09)
[2023-09-05 07:17] LABS: HEMATOCRIT 26.7 % (36.0-47.0); HEMOGLOBIN 8.6 g/dl (12.0-15.5); MEAN CORPUSCULAR HEMOGLOBIN 28.1 pg (27.0-33.0); MEAN CORPUSCULAR HGB CONC 32.2 g/dl (32.0-36.5); MEAN CORPUSCULAR VOLUME 87.3 fl (80.0-96.0); PLATELET COUNT, AUTOMATED 169 10^3/uL (150-450); RED BLOOD COUNT 3.06 10^6/uL (4.00-5.40); WHITE BLOOD COUNT 3.4 10^3/uL (4.0-10.0)
[2023-09-05 07:38] LABS: ALBUMIN 2.8 G/DL (3.2-5.2); ALKALINE PHOSPHATASE 55 U/L (46-116); ALT/SGPT 20 U/L (7.0-40); AST/SGOT 12 U/L (<34); BILIRUBIN,TOTAL 0.3 MG/DL (0.3-1.2); BLOOD UREA NITROGEN 6 MG/DL (9-23); CALCIUM LEVEL 8.1 MG/DL (8.5-10.1); CARBON DIOXIDE LEVEL 22 MMOL/L (20-31); CHLORIDE LEVEL 107 MMOL/L (98-107); CREATININE FOR GFR 0.41 MG/DL (0.55-1.30); GLOMERULAR FILTRATION RATE > 60.0 (>60); GLUCOSE, FASTING 93 MG/DL (60-100); SODIUM LEVEL 138 MMOL/L (136-145); TOTAL PROTEIN 5.9 G/DL (5.7-8.2)
[2023-09-05 08:28] LABS: ATYPICAL LYMPH 3 % (0-5); EOSINOPHILS 3 % (0-3); LYMPHOCYTES 40 % (16-44); MONOCYTES 5 % (0-5); NEUTROPHILS 49 % (28-66); PLATELET ESTIMATE NORMAL (NORMAL)
[2023-09-05 08:29] LABS: ANISOCYTOSIS 1+; OVALOCYTES 1+
[2023-09-05 08:36] VITALS: BP 96/56; TEMP 96.6; O2SAT 100
[2023-09-05] MEDS: ADVAIR HFA 230/21MCG INHALER INH SCH ×2 (09:10→19:49)
[2023-09-05] MEDS: MIDODRINE 5 MG TAB PO SCH ×3 (09:16→17:08)
[2023-09-05] MEDS: BISACODYL 10MG SUPP PR SCH (09:16)
[2023-09-05] MEDS: D5W/0.9% SODIUM CHLORIDE 1,000 ML IV SCH ×2 (09:16→15:20)
[2023-09-05 11:59] VITALS: BP 105/75; TEMP 96.9; O2SAT 98
[2023-09-05] MEDS: ONDANSETRON 4MG ORAL DISINTEGRATING TAB PO PRN (12:54)
[2023-09-05] MEDS: DAPTOmycin 400 MG in NS 50 ML IV SCH (12:54)
[2023-09-05 15:03] VITALS: BP 122/83; TEMP 97; O2SAT 96
[2023-09-05] MEDS: GABAPENTIN 300 MG CAP PO SCH (20:23)
[2023-09-05] MEDS: PRIMIDONE 50MG TAB PO SCH (20:23)
[2023-09-05] MEDS: FAMOTIDINE 20 MG TAB PO SCH (20:23)
[2023-09-05] MEDS: AMITRIPTYLINE 25MG TABLET PO SCH (20:23)
[2023-09-05 23:52] VITALS: BP 102/50; TEMP 97.4; O2SAT 98
[2023-09-06] MEDS: CEFEPIME HCL 2 GM in D5W MINI-BAG PLUS 50 ML IV SCH ×3 (01:49→18:42)
[2023-09-06] MEDS: D5W/0.9% SODIUM CHLORIDE 1,000 ML IV SCH ×3 (01:49→20:43)
[2023-09-06] MEDS: HEPARIN SOD (PORCINE) 5000UNITS/ML 1ML VIAL/SYRINGE SC SCH ×2 (05:45→18:42)
[2023-09-06 06:34] LABS: BASO % 0.6 % (0.0-1.0); EOS # 0.1 10^3/uL (0.0-0.5); EOS % 2.8 % (0.0-3.0); HEMATOCRIT 26.3 % (36.0-47.0); HEMOGLOBIN 8.4 g/dl (12.0-15.5); LYMPH # 1.5 10^3/uL (1.5-5.0); LYMPH % 40.6 % (24.0-44.0); MEAN CORPUSCULAR HEMOGLOBIN 27.8 pg (27.0-33.0); MEAN CORPUSCULAR HGB CONC 31.9 g/dl (32.0-36.5); MEAN CORPUSCULAR VOLUME 87.1 fl (80.0-96.0); MONO # 0.4 10^3/uL (0.0-0.8); MONO % 9.8 % (2.0-8.0); NEUTROPHILS # 1.6 10^3/uL (1.5-8.5); NEUTROPHILS % 45.4 % (36.0-66.0); PLATELET COUNT, AUTOMATED 200 10^3/uL (150-450); RED BLOOD COUNT 3.02 10^6/uL (4.00-5.40); WHITE BLOOD COUNT 3.6 10^3/uL (4.0-10.0)
[2023-09-06] MEDS: ADVAIR HFA 230/21MCG INHALER INH SCH ×2 (07:00→19:44)
[2023-09-06 07:01] LABS: ALBUMIN 2.9 G/DL (3.2-5.2); ALKALINE PHOSPHATASE 55 U/L (46-116); ALT/SGPT 17 U/L (7.0-40); AST/SGOT 10 U/L (<34); BILIRUBIN,TOTAL 0.3 MG/DL (0.3-1.2); BLOOD UREA NITROGEN < 5 MG/DL (9-23); CALCIUM LEVEL 8.6 MG/DL (8.5-10.1); CARBON DIOXIDE LEVEL 27 MMOL/L (20-31); CHLORIDE LEVEL 106 MMOL/L (98-107); CREATININE FOR GFR 0.41 MG/DL (0.55-1.30); GLOMERULAR FILTRATION RATE > 60.0 (>60); GLUCOSE, FASTING 112 MG/DL (60-100); MAGNESIUM LEVEL 1.9 MG/DL (1.8-2.4); POTASSIUM SERUM 3.7 MMOL/L (3.5-5.1); SODIUM LEVEL 141 MMOL/L (136-145)
[2023-09-06 07:31] LABS: PLATELET ESTIMATE NORMAL (NORMAL)
[2023-09-06 07:32] LABS: OVALOCYTES 1+; ROULEAUX 1+
[2023-09-06 07:33] LABS: ANISOCYTOSIS 1+; MICROCYTOSIS 1+
[2023-09-06 07:34] LABS: HYPOCHROMASIA 2+; POIKILOCYTOSIS 1+
[2023-09-06 08:00] VITALS: BP 87/52; TEMP 97.3; O2SAT 100
[2023-09-06] MEDS: BISACODYL 10MG SUPP PR SCH (08:57)
[2023-09-06] MEDS: MIDODRINE 5 MG TAB PO SCH ×3 (08:57→16:39)
[2023-09-06 12:00] VITALS: BP 110/74; TEMP 96.7; O2SAT 100
[2023-09-06] MEDS: DAPTOmycin 400 MG in NS 50 ML IV SCH (12:26)
[2023-09-06 16:00] VITALS: BP 103/58; TEMP 96.9; O2SAT 100
[2023-09-06 20:03] VITALS: BP 123/72; TEMP 97.9; O2SAT 98
[2023-09-06] MEDS: AMITRIPTYLINE 25MG TABLET PO SCH (20:43)
[2023-09-06] MEDS: FAMOTIDINE 20 MG TAB PO SCH (20:43)
[2023-09-06] MEDS: PRIMIDONE 50MG TAB PO SCH (20:43)
[2023-09-06] MEDS: GABAPENTIN 300 MG CAP PO SCH (20:43)
[2023-09-07] MEDS: CEFEPIME HCL 2 GM in D5W MINI-BAG PLUS 50 ML IV SCH ×3 (02:19→17:52)
[2023-09-07 04:39] VITALS: BP 116/68; TEMP 97.8; O2SAT 98
[2023-09-07] MEDS: HEPARIN SOD (PORCINE) 5000UNITS/ML 1ML VIAL/SYRINGE SC SCH ×2 (05:44→17:52)
[2023-09-07 06:06] LABS: HEMATOCRIT 28.5 % (36.0-47.0); HEMOGLOBIN 9.1 g/dl (12.0-15.5); MEAN CORPUSCULAR HEMOGLOBIN 27.8 pg (27.0-33.0); MEAN CORPUSCULAR HGB CONC 31.9 g/dl (32.0-36.5); MEAN CORPUSCULAR VOLUME 87.2 fl (80.0-96.0); PLATELET COUNT, AUTOMATED 238 10^3/uL (150-450); RED BLOOD COUNT 3.27 10^6/uL (4.00-5.40); WHITE BLOOD COUNT 4.2 10^3/uL (4.0-10.0)
[2023-09-07 06:43] LABS: ATYPICAL LYMPH 5 % (0-5); EOSINOPHILS 2 % (0-3); LYMPHOCYTES 43 % (16-44); MONOCYTES 7 % (0-5); NEUTROPHILS 42 % (28-66); PLASMA CELL 1 % (0-0)
[2023-09-07 06:44] LABS: PLATELET ESTIMATE NORMAL (NORMAL)
[2023-09-07] MEDS: D5W/0.9% SODIUM CHLORIDE 1,000 ML IV SCH ×2 (07:42→17:52)
[2023-09-07] MEDS: BISACODYL 10MG SUPP PR SCH (07:44)
[2023-09-07] MEDS: MIDODRINE 5 MG TAB PO SCH ×3 (07:44→16:12)
[2023-09-07] MEDS: ONDANSETRON 4MG ORAL DISINTEGRATING TAB PO PRN (07:50)
[2023-09-07 08:00] VITALS: TEMP 97.6; O2SAT 98
[2023-09-07] MEDS: ADVAIR HFA 230/21MCG INHALER INH SCH ×2 (08:12→19:21)
[2023-09-07 09:05] LABS: ALBUMIN 3.2 G/DL (3.2-5.2); ALKALINE PHOSPHATASE 57 U/L (46-116); ALT/SGPT 21 U/L (7.0-40); AST/SGOT 15 U/L (<34); BILIRUBIN,TOTAL 0.3 MG/DL (0.3-1.2); BLOOD UREA NITROGEN < 5 MG/DL (9-23); CALCIUM LEVEL 8.7 MG/DL (8.5-10.1); CARBON DIOXIDE LEVEL 25 MMOL/L (20-31); CHLORIDE LEVEL 107 MMOL/L (98-107); CREATININE FOR GFR 0.37 MG/DL (0.55-1.30); GLOMERULAR FILTRATION RATE > 60.0 (>60); GLUCOSE, FASTING 91 MG/DL (60-100); MAGNESIUM LEVEL 1.8 MG/DL (1.8-2.4); POTASSIUM SERUM 3.3 MMOL/L (3.5-5.1); SODIUM LEVEL 140 MMOL/L (136-145); TOTAL PROTEIN 6.6 G/DL (5.7-8.2)
[2023-09-07 12:00] VITALS: BP 97/62; TEMP 98; O2SAT 100
[2023-09-07] MEDS: DAPTOmycin 400 MG in NS 50 ML IV SCH (12:19)
[2023-09-07 16:00] VITALS: TEMP 97.8; O2SAT 100
[2023-09-07] MEDS ORDERED: POTASSIUM CHLORIDE 10MEQ SR TABLET PO ONE (16:00)
[2023-09-07] MEDS: FAMOTIDINE 20 MG TAB PO SCH (19:59)
[2023-09-07] MEDS: GABAPENTIN 300 MG CAP PO SCH (19:59)
[2023-09-07] MEDS: AMITRIPTYLINE 25MG TABLET PO SCH (19:59)
[2023-09-07] MEDS: PRIMIDONE 50MG TAB PO SCH (19:59)
[2023-09-07 20:32] VITALS: BP 112/66; TEMP 97.1; O2SAT 98
[2023-09-08] MEDS: D5W/0.9% SODIUM CHLORIDE 1,000 ML IV SCH ×2 (02:50→15:52)
[2023-09-08] MEDS: CEFEPIME HCL 2 GM in D5W MINI-BAG PLUS 50 ML IV SCH ×3 (02:50→17:35)
[2023-09-08 04:09] VITALS: BP_SYST 101; BP_SYST 125; BP_DIAS 53; BP_DIAS 62; TEMP 97.5; O2SAT 95
[2023-09-08] MEDS: HEPARIN SOD (PORCINE) 5000UNITS/ML 1ML VIAL/SYRINGE SC SCH ×2 (05:18→17:35)
[2023-09-08 06:41] LABS: BASO % 0.3 % (0.0-1.0); EOS % 1.1 % (0.0-3.0); HEMATOCRIT 25.8 % (36.0-47.0); HEMOGLOBIN 8.3 g/dl (12.0-15.5); LYMPH # 1.5 10^3/uL (1.5-5.0); LYMPH % 40.7 % (24.0-44.0); MEAN CORPUSCULAR HEMOGLOBIN 27.9 pg (27.0-33.0); MEAN CORPUSCULAR HGB CONC 32.2 g/dl (32.0-36.5); MEAN CORPUSCULAR VOLUME 86.9 fl (80.0-96.0); MONO # 0.3 10^3/uL (0.0-0.8); MONO % 8.7 % (2.0-8.0); NEUTROPHILS # 1.8 10^3/uL (1.5-8.5); NEUTROPHILS % 47.6 % (36.0-66.0); PLATELET COUNT, AUTOMATED 256 10^3/uL (150-450); RED BLOOD COUNT 2.97 10^6/uL (4.00-5.40); WHITE BLOOD COUNT 3.7 10^3/uL (4.0-10.0)
[2023-09-08 07:31] VITALS: BP 102/59; TEMP 97.3; O2SAT 98
[2023-09-08] MEDS: ADVAIR HFA 230/21MCG INHALER INH SCH ×2 (08:01→19:41)
[2023-09-08] MEDS: MIDODRINE 5 MG TAB PO SCH ×3 (08:21→15:52)
[2023-09-08] MEDS: ONDANSETRON 4MG ORAL DISINTEGRATING TAB PO PRN (08:21)
[2023-09-08] MEDS: BISACODYL 10MG SUPP PR SCH (08:22)
[2023-09-08] MEDS: DAPTOmycin 400 MG in NS 50 ML IV SCH (12:44)
[2023-09-08 13:46] LABS: BLOOD UREA NITROGEN < 4 MG/DL (7-21); CHLORIDE LEVEL 107 MEQ/L (98-107); CREATININE FOR GFR 0.4 MG/DL (0.7-1.5); GLOMERULAR FILTRATION RATE > 60.0 (>60); GLUCOSE, FASTING 110 MG/DL (70-99); POTASSIUM SERUM 3.6 MEQ/L (3.6-5.0); SODIUM LEVEL 142 MEQ/L (134-153)
[2023-09-08 13:47] LABS: ALKALINE PHOSPHATASE 53 U/L (35-104); ALT/SGPT 11 U/L (1-33); AST/SGOT 12 U/L (5-40); BILIRUBIN,TOTAL < 0.7 MG/DL (0.2-1.3); CARBON DIOXIDE LEVEL 24 MEQ/L (22-30)
[2023-09-08 13:48] LABS: ALBUMIN 3.6 G/DL (3.9-5.0)
[2023-09-08 13:49] LABS: MAGNESIUM LEVEL 1.8 MG/DL (1.7-2.2)
[2023-09-08 16:00] VITALS: BP 97/51; TEMP 97.2; O2SAT 100
[2023-09-08 19:35] VITALS: BP 103/72; TEMP 97.2; O2SAT 100
[2023-09-08] MEDS: PRIMIDONE 50MG TAB PO SCH (20:32)
[2023-09-08] MEDS: AMITRIPTYLINE 25MG TABLET PO SCH (20:33)
[2023-09-08] MEDS: GABAPENTIN 300 MG CAP PO SCH (20:33)
[2023-09-08] MEDS: FAMOTIDINE 20 MG TAB PO SCH (20:33)
[2023-09-09] MEDS: D5W/0.9% SODIUM CHLORIDE 1,000 ML IV SCH ×3 (01:14→23:07)
[2023-09-09] MEDS: CEFEPIME HCL 2 GM in D5W MINI-BAG PLUS 50 ML IV SCH ×3 (01:14→17:14)
[2023-09-09 03:39] VITALS: BP 90/54; TEMP 97.6; O2SAT 98
[2023-09-09] MEDS: HEPARIN SOD (PORCINE) 5000UNITS/ML 1ML VIAL/SYRINGE SC SCH ×2 (05:33→17:13)
[2023-09-09 05:48] LABS: BASO % 0.6 % (0.0-1.0); EOS # 0.1 10^3/uL (0.0-0.5); EOS % 1.5 % (0.0-3.0); HEMOGLOBIN 8.2 g/dl (12.0-15.5); LYMPH # 1.4 10^3/uL (1.5-5.0); LYMPH % 41.5 % (24.0-44.0); MEAN CORPUSCULAR HEMOGLOBIN 27.6 pg (27.0-33.0); MEAN CORPUSCULAR HGB CONC 32.8 g/dl (32.0-36.5); MEAN CORPUSCULAR VOLUME 84.2 fl (80.0-96.0); MONO # 0.4 10^3/uL (0.0-0.8); NEUTROPHILS # 1.5 10^3/uL (1.5-8.5); NEUTROPHILS % 43.9 % (36.0-66.0); PLATELET COUNT, AUTOMATED 231 10^3/uL (150-450); RED BLOOD COUNT 2.97 10^6/uL (4.00-5.40); WHITE BLOOD COUNT 3.4 10^3/uL (4.0-10.0)
[2023-09-09 07:53] VITALS: BP 100/61; TEMP 97.9; O2SAT 100
[2023-09-09] MEDS: MIDODRINE 5 MG TAB PO SCH ×3 (08:39→17:13)
[2023-09-09] MEDS: BISACODYL 10MG SUPP PR SCH (08:39)
[2023-09-09] MEDS: ADVAIR HFA 230/21MCG INHALER INH SCH ×2 (09:09→20:18)
[2023-09-09] MEDS: DAPTOmycin 400 MG in NS 50 ML IV SCH (12:09)
[2023-09-09] MEDS: ONDANSETRON 4MG ORAL DISINTEGRATING TAB PO PRN (17:14)
[2023-09-09 19:52] VITALS: BP 104/70; TEMP 97.3; O2SAT 100
[2023-09-09] MEDS: FAMOTIDINE 20 MG TAB PO SCH (20:57)
[2023-09-09] MEDS: GABAPENTIN 300 MG CAP PO SCH (20:58)
[2023-09-09] MEDS: AMITRIPTYLINE 25MG TABLET PO SCH (20:58)
[2023-09-09] MEDS: PRIMIDONE 50MG TAB PO SCH (20:58)
[2023-09-10] MEDS: CEFEPIME HCL 2 GM in D5W MINI-BAG PLUS 50 ML IV SCH ×3 (01:51→17:00)
[2023-09-10 03:23] VITALS: BP 92/66; TEMP 96.7; O2SAT 98
[2023-09-10 05:01] LABS: HEMATOCRIT 25.6 % (36.0-47.0); HEMOGLOBIN 8.4 g/dl (12.0-15.5); MEAN CORPUSCULAR HEMOGLOBIN 27.9 pg (27.0-33.0); MEAN CORPUSCULAR HGB CONC 32.8 g/dl (32.0-36.5); PLATELET COUNT, AUTOMATED 248 10^3/uL (150-450); RED BLOOD COUNT 3.01 10^6/uL (4.00-5.40); WHITE BLOOD COUNT 3.7 10^3/uL (4.0-10.0)
[2023-09-10] MEDS: HEPARIN SOD (PORCINE) 5000UNITS/ML 1ML VIAL/SYRINGE SC SCH ×2 (05:49→17:02)
[2023-09-10] MEDS: ADVAIR HFA 230/21MCG INHALER INH SCH ×2 (08:06→19:10)
[2023-09-10] MEDS: BISACODYL 10MG SUPP PR SCH (08:15)
[2023-09-10] MEDS: MIDODRINE 5 MG TAB PO SCH ×3 (08:15→17:01)
[2023-09-10] MEDS: D5W/0.9% SODIUM CHLORIDE 1,000 ML IV SCH ×3 (10:41→23:36)
[2023-09-10 11:18] LABS: BLOOD UREA NITROGEN 5 MG/DL (7-21); GLUCOSE, FASTING 106 MG/DL (70-99)
[2023-09-10 11:19] LABS: ALBUMIN 3.5 G/DL (3.9-5.0); ALKALINE PHOSPHATASE 52 U/L (35-104); ALT/SGPT 10 U/L (1-33); AST/SGOT 11 U/L (5-40); BILIRUBIN,TOTAL < 0.7 MG/DL (0.2-1.3); CALCIUM LEVEL 8.8 MG/DL (8.4-10.2); CARBON DIOXIDE LEVEL 25 MEQ/L (22-30); CHLORIDE LEVEL 106 MEQ/L (98-107); CREATININE FOR GFR 0.4 MG/DL (0.7-1.5); GLOMERULAR FILTRATION RATE > 60.0 (>60); POTASSIUM SERUM 3.6 MEQ/L (3.6-5.0); SODIUM LEVEL 141 MEQ/L (134-153); TOTAL PROTEIN 5.9 G/DL (6.3-8.2)
[2023-09-10 11:20] LABS: MAGNESIUM LEVEL 1.7 MG/DL (1.7-2.2)
[2023-09-10 11:25] VITALS: BP 96/61; TEMP 97.3; O2SAT 99
[2023-09-10] MEDS: DAPTOmycin 400 MG in NS 50 ML IV SCH (11:35)
[2023-09-10] MEDS ORDERED: POTASSIUM CHLORIDE 10MEQ SR TABLET PO ONE (13:35)
[2023-09-10 14:14] LABS: BLOOD UREA NITROGEN 4 MG/DL (7-21); GLUCOSE, FASTING 103 MG/DL (70-99)
[2023-09-10 14:19] LABS: ALKALINE PHOSPHATASE 50 U/L (35-104); ALT/SGPT 9 U/L (1-33); AST/SGOT 12 U/L (5-40); CALCIUM LEVEL 8.8 MG/DL (8.4-10.2); CARBON DIOXIDE LEVEL 23 MEQ/L (22-30); CHLORIDE LEVEL 106 MEQ/L (98-107); POTASSIUM SERUM 3.2 MEQ/L (3.6-5.0); SODIUM LEVEL 140 MEQ/L (134-153)
[2023-09-10 14:20] LABS: ALBUMIN 3.6 G/DL (3.9-5.0); BILIRUBIN,TOTAL < 0.7 MG/DL (0.2-1.3)
[2023-09-10 19:42] VITALS: BP 105/59; TEMP 98.3; O2SAT 100
[2023-09-10] MEDS: GABAPENTIN 300 MG CAP PO SCH (20:37)
[2023-09-10] MEDS: PRIMIDONE 50MG TAB PO SCH (20:37)
[2023-09-10] MEDS: AMITRIPTYLINE 25MG TABLET PO SCH (20:37)
[2023-09-10] MEDS: FAMOTIDINE 20 MG TAB PO SCH (20:37)
[2023-09-11] MEDS: CEFEPIME HCL 2 GM in D5W MINI-BAG PLUS 50 ML IV SCH ×3 (02:21→18:08)
[2023-09-11 03:25] VITALS: BP 107/63; TEMP 97.4; O2SAT 99
[2023-09-11] MEDS: HEPARIN SOD (PORCINE) 5000UNITS/ML 1ML VIAL/SYRINGE SC SCH ×2 (06:01→18:08)
[2023-09-11 06:10] LABS: HEMOGLOBIN 8.3 g/dl (12.0-15.5); MEAN CORPUSCULAR HEMOGLOBIN 27.7 pg (27.0-33.0); MEAN CORPUSCULAR HGB CONC 31.9 g/dl (32.0-36.5); MEAN CORPUSCULAR VOLUME 86.7 fl (80.0-96.0); PLATELET COUNT, AUTOMATED 277 10^3/uL (150-450); WHITE BLOOD COUNT 3.8 10^3/uL (4.0-10.0)
[2023-09-11] MEDS: ADVAIR HFA 230/21MCG INHALER INH SCH ×2 (07:29→19:41)
[2023-09-11 07:41] VITALS: BP 103/56; TEMP 97.6; O2SAT 100
[2023-09-11] MEDS: MIDODRINE 5 MG TAB PO SCH ×3 (08:02→16:24)
[2023-09-11] MEDS: D5W/0.9% SODIUM CHLORIDE 1,000 ML IV SCH ×2 (08:02→18:12)
[2023-09-11] MEDS: BISACODYL 10MG SUPP PR SCH (08:02)
[2023-09-11 12:17] LABS: BLOOD UREA NITROGEN 4 MG/DL (7-21); GLUCOSE, FASTING 107 MG/DL (70-99)
[2023-09-11 12:18] LABS: CREATININE FOR GFR < 0.2 MG/DL (0.7-1.5)
[2023-09-11 12:19] LABS: GLOMERULAR FILTRATION RATE > 60.0 (>60)
[2023-09-11 12:20] LABS: ALBUMIN 3.6 G/DL (3.9-5.0); ALKALINE PHOSPHATASE 50 U/L (35-104); ALT/SGPT 9 U/L (1-33); AST/SGOT 11 U/L (5-40); BILIRUBIN,TOTAL < 0.7 MG/DL (0.2-1.3); CALCIUM LEVEL 8.9 MG/DL (8.4-10.2); CARBON DIOXIDE LEVEL 25 MEQ/L (22-30); CHLORIDE LEVEL 105 MEQ/L (98-107); POTASSIUM SERUM 3.5 MEQ/L (3.6-5.0); SODIUM LEVEL 141 MEQ/L (134-153); TOTAL PROTEIN 5.9 G/DL (6.3-8.2)
[2023-09-11] MEDS ORDERED: POTASSIUM CHLORIDE 10MEQ SR TABLET PO ONE (13:15)
[2023-09-11] MEDS: DAPTOmycin 400 MG in NS 50 ML IV SCH (14:08)
[2023-09-11 15:45] VITALS: BP 112/67; TEMP 97.2; O2SAT 100
[2023-09-11 19:08] VITALS: BP 111/75; TEMP 97.7; O2SAT 100
[2023-09-11] MEDS: FAMOTIDINE 20 MG TAB PO SCH (21:41)
[2023-09-11] MEDS: AMITRIPTYLINE 25MG TABLET PO SCH (21:42)
[2023-09-11] MEDS: GABAPENTIN 300 MG CAP PO SCH (21:42)
[2023-09-11] MEDS: PRIMIDONE 50MG TAB PO SCH (21:45)
[2023-09-12] MEDS: CEFEPIME HCL 2 GM in D5W MINI-BAG PLUS 50 ML IV SCH ×3 (02:28→18:03)
[2023-09-12 04:20] VITALS: BP 93/61; TEMP 97; O2SAT 99
[2023-09-12] MEDS: D5W/0.9% SODIUM CHLORIDE 1,000 ML IV SCH ×2 (05:36→18:52)
[2023-09-12] MEDS: HEPARIN SOD (PORCINE) 5000UNITS/ML 1ML VIAL/SYRINGE SC SCH ×2 (05:36→18:03)
[2023-09-12 06:01] LABS: HEMATOCRIT 27.9 % (36.0-47.0); HEMOGLOBIN 8.8 g/dl (12.0-15.5); MEAN CORPUSCULAR HEMOGLOBIN 27.4 pg (27.0-33.0); MEAN CORPUSCULAR HGB CONC 31.5 g/dl (32.0-36.5); MEAN CORPUSCULAR VOLUME 86.9 fl (80.0-96.0); PLATELET COUNT, AUTOMATED 286 10^3/uL (150-450); RED BLOOD COUNT 3.21 10^6/uL (4.00-5.40); WHITE BLOOD COUNT 3.8 10^3/uL (4.0-10.0)
[2023-09-12 06:22] LABS: ALBUMIN 3.4 G/DL (3.2-5.2); ALKALINE PHOSPHATASE 56 U/L (46-116); ALT/SGPT 13 U/L (7.0-40); AST/SGOT 11 U/L (<34); BILIRUBIN,TOTAL 0.5 MG/DL (0.3-1.2); BLOOD UREA NITROGEN 6 MG/DL (9-23); CALCIUM LEVEL 9.1 MG/DL (8.5-10.1); CARBON DIOXIDE LEVEL 29 MMOL/L (20-31); CHLORIDE LEVEL 107 MMOL/L (98-107); CREATININE FOR GFR 0.38 MG/DL (0.55-1.30); GLOMERULAR FILTRATION RATE > 60.0 (>60); GLUCOSE, FASTING 94 MG/DL (60-100); POTASSIUM SERUM 3.4 MMOL/L (3.5-5.1); SODIUM LEVEL 143 MMOL/L (136-145); TOTAL PROTEIN 6.6 G/DL (5.7-8.2)
[2023-09-12] MEDS: ADVAIR HFA 230/21MCG INHALER INH SCH ×2 (07:23→19:03)
[2023-09-12 07:43] VITALS: BP 97/53; TEMP 98.4; O2SAT 100
[2023-09-12] MEDS: MIDODRINE 5 MG TAB PO SCH ×3 (08:22→16:23)
[2023-09-12] MEDS: POTASSIUM CHLORIDE 10MEQ SR TABLET PO SCH ×2 (08:23→20:01)
[2023-09-12] MEDS: BISACODYL 10MG SUPP PR SCH (08:23)
[2023-09-12] MEDS: DAPTOmycin 400 MG in NS 50 ML IV SCH (12:37)
[2023-09-12 15:49] VITALS: BP 116/69; TEMP 96; O2SAT 100
[2023-09-12] MEDS: AMITRIPTYLINE 25MG TABLET PO SCH (20:01)
[2023-09-12] MEDS: GABAPENTIN 300 MG CAP PO SCH (20:01)
[2023-09-12] MEDS: PRIMIDONE 50MG TAB PO SCH (20:02)
[2023-09-12] MEDS: FAMOTIDINE 20 MG TAB PO SCH (20:02)
[2023-09-12 23:23] VITALS: BP 96/52; TEMP 97; O2SAT 97
[2023-09-13] MEDS: CEFEPIME HCL 2 GM in D5W MINI-BAG PLUS 50 ML IV SCH ×3 (01:22→17:28)
[2023-09-13] MEDS: D5W/0.9% SODIUM CHLORIDE 1,000 ML IV SCH ×2 (05:37→17:28)
[2023-09-13] MEDS: HEPARIN SOD (PORCINE) 5000UNITS/ML 1ML VIAL/SYRINGE SC SCH ×2 (05:39→17:28)
[2023-09-13 07:39] VITALS: BP 93/56; TEMP 97.5; O2SAT 100
[2023-09-13] MEDS: ADVAIR HFA 230/21MCG INHALER INH SCH ×2 (07:59→19:54)
[2023-09-13] MEDS: POTASSIUM CHLORIDE 10MEQ SR TABLET PO SCH ×2 (08:09→21:36)
[2023-09-13] MEDS: BISACODYL 10MG SUPP PR SCH (08:10)
[2023-09-13] MEDS: MIDODRINE 5 MG TAB PO SCH ×3 (08:10→16:44)
[2023-09-13] MEDS: ONDANSETRON 4MG ORAL DISINTEGRATING TAB PO PRN (10:40)
[2023-09-13 12:33] VITALS: BP 99/62
[2023-09-13] MEDS: DAPTOmycin 400 MG in NS 50 ML IV SCH (12:43)
[2023-09-13 16:00] VITALS: BP 105/69; TEMP 97.3; O2SAT 98
[2023-09-13] MEDS: FAMOTIDINE 20 MG TAB PO SCH (21:36)
[2023-09-13] MEDS: GABAPENTIN 300 MG CAP PO SCH (21:36)
[2023-09-13] MEDS: PRIMIDONE 50MG TAB PO SCH (21:37)
[2023-09-13] MEDS: AMITRIPTYLINE 25MG TABLET PO SCH (21:37)
[2023-09-14] MEDS: CEFEPIME HCL 2 GM in D5W MINI-BAG PLUS 50 ML IV SCH ×3 (02:10→17:36)
[2023-09-14] MEDS: D5W/0.9% SODIUM CHLORIDE 1,000 ML IV SCH ×2 (02:10→15:59)
[2023-09-14 04:00] VITALS: BP 110/67; TEMP 97.9; O2SAT 99
[2023-09-14] MEDS: HEPARIN SOD (PORCINE) 5000UNITS/ML 1ML VIAL/SYRINGE SC SCH ×2 (06:06→17:35)
[2023-09-14 07:19] VITALS: BP 92/58; TEMP 97; O2SAT 100
[2023-09-14] MEDS: ADVAIR HFA 230/21MCG INHALER INH SCH ×2 (07:47→19:25)
[2023-09-14] MEDS: BISACODYL 10MG SUPP PR SCH (09:09)
[2023-09-14] MEDS: MIDODRINE 5 MG TAB PO SCH ×3 (09:09→15:59)
[2023-09-14] MEDS: POTASSIUM CHLORIDE 10MEQ SR TABLET PO SCH ×2 (09:10→20:13)
[2023-09-14] MEDS: ONDANSETRON 4MG ORAL DISINTEGRATING TAB PO PRN (12:44)
[2023-09-14] MEDS: DAPTOmycin 400 MG in NS 50 ML IV SCH (14:02)
[2023-09-14 15:51] VITALS: BP 99/58; TEMP 97.9; O2SAT 98
[2023-09-14 20:00] VITALS: BP 101/56; TEMP 97.8; O2SAT 99
[2023-09-14] MEDS: PRIMIDONE 50MG TAB PO SCH (20:12)
[2023-09-14] MEDS: FAMOTIDINE 20 MG TAB PO SCH (20:12)
[2023-09-14] MEDS: AMITRIPTYLINE 25MG TABLET PO SCH (20:12)
[2023-09-14] MEDS: GABAPENTIN 300 MG CAP PO SCH (20:13)
[2023-09-15] MEDS: D5W/0.9% SODIUM CHLORIDE 1,000 ML IV SCH ×3 (01:01→21:17)
[2023-09-15] MEDS: ONDANSETRON 4MG ORAL DISINTEGRATING TAB PO PRN ×3 (01:12→20:31)
[2023-09-15 04:00] VITALS: BP 100/55; TEMP 97.8; O2SAT 99
[2023-09-15] MEDS: HEPARIN SOD (PORCINE) 5000UNITS/ML 1ML VIAL/SYRINGE SC SCH ×2 (06:09→17:08)
[2023-09-15] MEDS: ADVAIR HFA 230/21MCG INHALER INH SCH ×2 (07:58→20:08)
[2023-09-15 08:00] VITALS: BP 101/63; TEMP 96.7; O2SAT 98
[2023-09-15] MEDS: POTASSIUM CHLORIDE 10MEQ SR TABLET PO SCH ×2 (08:05→21:18)
[2023-09-15] MEDS: BISACODYL 10MG SUPP PR SCH (08:05)
[2023-09-15] MEDS: MIDODRINE 5 MG TAB PO SCH ×3 (08:06→17:08)
[2023-09-15 12:00] VITALS: BP 105/66; TEMP 96.6; O2SAT 100
[2023-09-15] MEDS: DAPTOmycin 400 MG in NS 50 ML IV SCH (12:52)
[2023-09-15 16:00] VITALS: BP 96/58; TEMP 97.3; O2SAT 100
[2023-09-15 20:22] VITALS: BP 130/80; TEMP 96.9; O2SAT 100
[2023-09-15] MEDS ORDERED: diphenhydrAMINE 50MG/ML VIAL IV STA (20:25)
[2023-09-15] MEDS: AMITRIPTYLINE 25MG TABLET PO SCH (21:18)
[2023-09-15] MEDS: FAMOTIDINE 20 MG TAB PO SCH (21:18)
[2023-09-15] MEDS: PRIMIDONE 50MG TAB PO SCH (21:18)
[2023-09-15] MEDS: GABAPENTIN 300 MG CAP PO SCH (21:18)
[2023-09-16 04:00] VITALS: BP 102/55; TEMP 97.6; O2SAT 98
[2023-09-16 04:56] LABS: BASO % 0.7 % (0.0-1.0); EOS # 0.1 10^3/uL (0.0-0.5); EOS % 1.7 % (0.0-3.0); HEMATOCRIT 25.4 % (36.0-47.0); HEMOGLOBIN 8.1 g/dl (12.0-15.5); LYMPH # 1.6 10^3/uL (1.5-5.0); LYMPH % 51.5 % (24.0-44.0); MEAN CORPUSCULAR HEMOGLOBIN 27.5 pg (27.0-33.0); MEAN CORPUSCULAR HGB CONC 31.9 g/dl (32.0-36.5); MEAN CORPUSCULAR VOLUME 86.1 fl (80.0-96.0); MONO # 0.4 10^3/uL (0.0-0.8); MONO % 12.6 % (2.0-8.0); NEUTROPHILS % 33.5 % (36.0-66.0); PLATELET COUNT, AUTOMATED 221 10^3/uL (150-450); RED BLOOD COUNT 2.95 10^6/uL (4.00-5.40)
[2023-09-16 05:19] LABS: CPK CREATINE PHOSPHOKINASE < 15 U/L (34-145)
[2023-09-16 05:59] LABS: BLOOD UREA NITROGEN < 5 MG/DL (9-23); CALCIUM LEVEL 8.3 MG/DL (8.5-10.1); CARBON DIOXIDE LEVEL 27 MMOL/L (20-31); CHLORIDE LEVEL 110 MMOL/L (98-107); CREATININE FOR GFR 0.36 MG/DL (0.55-1.30); GLOMERULAR FILTRATION RATE > 60.0 (>60); GLUCOSE, FASTING 110 MG/DL (60-100); POTASSIUM SERUM 3.1 MMOL/L (3.5-5.1); SODIUM LEVEL 144 MMOL/L (136-145)
[2023-09-16] MEDS: HEPARIN SOD (PORCINE) 5000UNITS/ML 1ML VIAL/SYRINGE SC SCH (06:37)
[2023-09-16] MEDS: D5W/0.9% SODIUM CHLORIDE 1,000 ML IV SCH (06:38)
[2023-09-16] MEDS: ADVAIR HFA 230/21MCG INHALER INH SCH (07:16)
[2023-09-16 08:07] VITALS: BP 102/70; TEMP 97.1; O2SAT 100
[2023-09-16 08:09] LABS: MAGNESIUM LEVEL 1.6 MG/DL (1.8-2.4)
[2023-09-16] MEDS: BISACODYL 10MG SUPP PR SCH (08:32)
[2023-09-16] MEDS: MIDODRINE 5 MG TAB PO SCH (08:32)
[2023-09-16] MEDS: ONDANSETRON 4MG ORAL DISINTEGRATING TAB PO PRN (08:38)
[2023-09-16] MEDS ORDERED: INFLUENZA QUADRIVALENT PF VACCINE 0.5ML SYRINGE IM.IMMUN ONE (09:00)
[2023-09-16] MEDS ORDERED: POTASSIUM CHLORIDE 10MEQ SR TABLET PO SCH (09:00)
== END 2023-09-16 09:01 | disposition short-term general hospital (02) | DRG 721 ==
LOC: M ED 08:06 → M ED INP 14:03 → M PCU 16:16
PROVIDERS: ADMIT Student in an Organized Health Care Education/Training Program; ATTEND Student in an Organized Health Care Education/Training Program
PROC: 30233N1 Transfusion of Nonautologous Red Blood Cells into Peripheral Vein, Percutaneous Approach (ICD-10-PCS; principal; 2023-09-01)
PROC: 0JPS33Z Removal of Infusion Device from Head and Neck Subcutaneous Tissue and Fascia, Percutaneous Approach (ICD-10-PCS; 2023-09-04)
PROC: B246ZZZ Ultrasonography of Right and Left Heart (ICD-10-PCS; 2023-09-06)
DX: T80.211A Bloodstream infection due to central venous catheter, initial encounter (principal); A41.53 Sepsis due to Serratia; D61.818 Other pancytopenia; E46 Unspecified protein-calorie malnutrition; I95.89 Other hypotension; D80.3 Selective deficiency of immunoglobulin G [IgG] subclasses; Q79.60 Ehlers-Danlos syndrome, unspecified; E83.42 Hypomagnesemia; G90.A Postural orthostatic tachycardia syndrome [POTS]; K31.84 Gastroparesis; Z93.1 Gastrostomy status; J45.909 Unspecified asthma, uncomplicated; G93.32 Myalgic encephalomyelitis/chronic fatigue syndrome; D50.9 Iron deficiency anemia, unspecified; G25.0 Essential tremor; K59.09 Other constipation; Z83.3 Family history of diabetes mellitus; G89.29 Other chronic pain; Z79.51 Long term (current) use of inhaled steroids; E87.6 Hypokalemia; J38.3 Other diseases of vocal cords; G47.00 Insomnia, unspecified; G43.909 Migraine, unspecified, not intractable, without status migrainosus; K21.9 Gastro-esophageal reflux disease without esophagitis; Z79.899 Other long term (current) drug therapy; Z88.0 Allergy status to penicillin; Z88.1 Allergy status to other antibiotic agents; Z88.8 Allergy status to other drugs, medicaments and biological substances; Z20.822 Contact with and (suspected) exposure to COVID-19

== ENCOUNTER → 2023-09-25 | Outpatient (REF) | payer BC ==
[~2023-09-25] MED LIST changes: +GABA-282; +GABA-282 PO; +ONDA4TAB6 PO; +PRIM50TA6 PO
[2023-09-25 15:07] LABS: BASO % 0.5 % (0.0-1.0); EOS # 0.6 10^3/uL (0.0-0.5); EOS % 9.7 % (0.0-3.0); HEMATOCRIT 33.1 % (36.0-47.0); HEMOGLOBIN 10.4 g/dl (12.0-15.5); LYMPH # 2.9 10^3/uL (1.5-5.0); MEAN CORPUSCULAR HEMOGLOBIN 27.2 pg (27.0-33.0); MEAN CORPUSCULAR HGB CONC 31.4 g/dl (32.0-36.5); MEAN CORPUSCULAR VOLUME 86.4 fl (80.0-96.0); MONO # 0.5 10^3/uL (0.0-0.8); MONO % 8.1 % (2.0-8.0); NEUTROPHILS # 1.8 10^3/uL (1.5-8.5); NEUTROPHILS % 31.5 % (36.0-66.0); PLATELET COUNT, AUTOMATED 221 10^3/uL (150-450); RED BLOOD COUNT 3.83 10^6/uL (4.00-5.40); WHITE BLOOD COUNT 5.8 10^3/uL (4.0-10.0)
[2023-09-25 17:14] LABS: CPK CREATINE PHOSPHOKINASE 25 U/L (34-145); CREATININE FOR GFR 0.43 MG/DL (0.55-1.30); GLOMERULAR FILTRATION RATE > 60.0 (>60)
== END ==
LOC: M SHH 14:45
PROVIDERS: ATTEND Internal Medicine Infectious Disease
DX: R78.81 Bacteremia (principal)

== ENCOUNTER → 2023-09-25 | Outpatient (REF) | payer BC ==
[2023-09-25 15:02] LABS: BASO % 0.5 % (0.0-1.0); EOS # 0.6 10^3/uL (0.0-0.5); EOS % 9.6 % (0.0-3.0); HEMATOCRIT 33.8 % (36.0-47.0); HEMOGLOBIN 10.5 g/dl (12.0-15.5); LYMPH % 50.4 % (24.0-44.0); MEAN CORPUSCULAR HEMOGLOBIN 26.9 pg (27.0-33.0); MEAN CORPUSCULAR HGB CONC 31.1 g/dl (32.0-36.5); MEAN CORPUSCULAR VOLUME 86.7 fl (80.0-96.0); MONO # 0.5 10^3/uL (0.0-0.8); NEUTROPHILS # 1.8 10^3/uL (1.5-8.5); NEUTROPHILS % 31.5 % (36.0-66.0); PLATELET COUNT, AUTOMATED 213 10^3/uL (150-450); WHITE BLOOD COUNT 5.9 10^3/uL (4.0-10.0)
[2023-09-25 15:28] LABS: ALBUMIN 3.5 G/DL (3.2-5.2); ALKALINE PHOSPHATASE 62 U/L (46-116); ALT/SGPT 19 U/L (7.0-40); AST/SGOT 19 U/L (<34); BILIRUBIN,DIRECT 0.1 MG/DL (<0.4); BILIRUBIN,TOTAL 0.3 MG/DL (0.3-1.2); BLOOD UREA NITROGEN 13 MG/DL (9-23); CALCIUM LEVEL 8.8 MG/DL (8.5-10.1); CARBON DIOXIDE LEVEL 31 MMOL/L (20-31); CHLORIDE LEVEL 100 MMOL/L (98-107); CREATININE FOR GFR 0.45 MG/DL (0.55-1.30); GLOMERULAR FILTRATION RATE > 60.0 (>60); GLUCOSE, FASTING 96 MG/DL (60-100); POTASSIUM SERUM 3.9 MMOL/L (3.5-5.1); SODIUM LEVEL 138 MMOL/L (136-145); TOTAL PROTEIN 6.7 G/DL (5.7-8.2)
[2023-09-27 15:50] LABS: MAGNESIUM LEVEL 1.8 MG/DL (1.8-2.4); PHOSPHORUS LEVEL 4.7 MG/DL (2.5-4.9); TRIGLYCERIDES LEVEL 112 MG/DL (<150)
== END ==
LOC: M SHH 14:43
PROVIDERS: ATTEND Internal Medicine Gastroenterology
DX: R62.7 Adult failure to thrive (principal); K31.84 Gastroparesis; R63.4 Abnormal weight loss; E46 Unspecified protein-calorie malnutrition; T80.219A Unspecified infection due to central venous catheter, initial encounter; B96.1 Klebsiella pneumoniae [K. pneumoniae] as the cause of diseases classified elsewhere; R63.30 Feeding difficulties, unspecified

== ENCOUNTER → 2023-10-02 | Outpatient (REF) | payer BC ==
[2023-10-02 12:32] LABS: BASO % 0.3 % (0.0-1.0); EOS # 0.5 10^3/uL (0.0-0.5); EOS % 8.6 % (0.0-3.0); HEMATOCRIT 29.5 % (36.0-47.0); HEMOGLOBIN 9.2 g/dl (12.0-15.5); LYMPH # 2.7 10^3/uL (1.5-5.0); LYMPH % 46.2 % (24.0-44.0); MEAN CORPUSCULAR HEMOGLOBIN 27.3 pg (27.0-33.0); MEAN CORPUSCULAR HGB CONC 31.2 g/dl (32.0-36.5); MEAN CORPUSCULAR VOLUME 87.5 fl (80.0-96.0); MONO # 0.4 10^3/uL (0.0-0.8); MONO % 7.4 % (2.0-8.0); NEUTROPHILS # 2.2 10^3/uL (1.5-8.5); NEUTROPHILS % 36.8 % (36.0-66.0); PLATELET COUNT, AUTOMATED 203 10^3/uL (150-450); RED BLOOD COUNT 3.37 10^6/uL (4.00-5.40); WHITE BLOOD COUNT 5.9 10^3/uL (4.0-10.0)
[2023-10-02 13:04] LABS: ALBUMIN 3.1 G/DL (3.2-5.2); ALKALINE PHOSPHATASE 63 U/L (46-116); ALT/SGPT 28 U/L (7.0-40); AST/SGOT 21 U/L (<34); BILIRUBIN,TOTAL 0.2 MG/DL (0.3-1.2); BLOOD UREA NITROGEN 14 MG/DL (9-23); CALCIUM LEVEL 8.3 MG/DL (8.5-10.1); CARBON DIOXIDE LEVEL 24 MMOL/L (20-31); CHLORIDE LEVEL 107 MMOL/L (98-107); CREATININE FOR GFR 0.52 MG/DL (0.55-1.30); GLOMERULAR FILTRATION RATE > 60.0 (>60); GLUCOSE, FASTING 82 MG/DL (60-100); MAGNESIUM LEVEL 1.9 MG/DL (1.8-2.4); PHOSPHORUS LEVEL 4.1 MG/DL (2.5-4.9); POTASSIUM SERUM 4.3 MMOL/L (3.5-5.1); SODIUM LEVEL 138 MMOL/L (136-145); TOTAL PROTEIN 6.1 G/DL (5.7-8.2); TRIGLYCERIDES LEVEL 60 MG/DL (<150)
== END ==
LOC: M SHH 11:26
PROVIDERS: ATTEND Internal Medicine Gastroenterology
DX: E46 Unspecified protein-calorie malnutrition (principal); T80.219A Unspecified infection due to central venous catheter, initial encounter; B96.1 Klebsiella pneumoniae [K. pneumoniae] as the cause of diseases classified elsewhere; R63.30 Feeding difficulties, unspecified; Y83.1 Surgical operation with implant of artificial internal device as the cause of abnormal reaction of the patient, or of later complication, without mention of misadventure at the time of the procedure

== ENCOUNTER → 2023-10-11 | Outpatient (REF) | payer BC ==
[2023-10-11 11:59] LABS: BASO % 0.6 % (0.0-1.0); EOS # 0.3 10^3/uL (0.0-0.5); EOS % 6.4 % (0.0-3.0); HEMATOCRIT 30.5 % (36.0-47.0); HEMOGLOBIN 9.4 g/dl (12.0-15.5); LYMPH # 2.7 10^3/uL (1.5-5.0); LYMPH % 54.4 % (24.0-44.0); MEAN CORPUSCULAR HEMOGLOBIN 26.9 pg (27.0-33.0); MEAN CORPUSCULAR HGB CONC 30.8 g/dl (32.0-36.5); MEAN CORPUSCULAR VOLUME 87.1 fl (80.0-96.0); MONO # 0.5 10^3/uL (0.0-0.8); MONO % 9.2 % (2.0-8.0); NEUTROPHILS # 1.4 10^3/uL (1.5-8.5); NEUTROPHILS % 29.2 % (36.0-66.0); PLATELET COUNT, AUTOMATED 335 10^3/uL (150-450); WHITE BLOOD COUNT 4.9 10^3/uL (4.0-10.0)
[2023-10-11 12:29] LABS: ALBUMIN 3.3 G/DL (3.2-5.2); ALKALINE PHOSPHATASE 70 U/L (46-116); ALT/SGPT 19 U/L (7.0-40); AST/SGOT 15 U/L (<34); BILIRUBIN,TOTAL 0.2 MG/DL (0.3-1.2); BLOOD UREA NITROGEN 16 MG/DL (9-23); CALCIUM LEVEL 8.4 MG/DL (8.5-10.1); CARBON DIOXIDE LEVEL 26 MMOL/L (20-31); CHLORIDE LEVEL 108 MMOL/L (98-107); CREATININE FOR GFR 0.47 MG/DL (0.55-1.30); GLOMERULAR FILTRATION RATE > 60.0 (>60); GLUCOSE, FASTING 77 MG/DL (60-100); PHOSPHORUS LEVEL 4.2 MG/DL (2.5-4.9); POTASSIUM SERUM 4.1 MMOL/L (3.5-5.1); SODIUM LEVEL 142 MMOL/L (136-145); TOTAL PROTEIN 6.6 G/DL (5.7-8.2); TRIGLYCERIDES LEVEL 86 MG/DL (<150)
== END ==
LOC: M SHH 11:15
PROVIDERS: ATTEND Internal Medicine Gastroenterology
DX: R63.30 Feeding difficulties, unspecified (principal); B96.1 Klebsiella pneumoniae [K. pneumoniae] as the cause of diseases classified elsewhere; E46 Unspecified protein-calorie malnutrition; T80.219A Unspecified infection due to central venous catheter, initial encounter

== ENCOUNTER → 2023-10-16 | Outpatient (REF) | payer BC ==
[2023-10-16 14:09] LABS: BASO % 0.4 % (0.0-1.0); EOS # 0.3 10^3/uL (0.0-0.5); EOS % 5.7 % (0.0-3.0); HEMATOCRIT 27.9 % (36.0-47.0); HEMOGLOBIN 8.6 g/dl (12.0-15.5); LYMPH # 2.4 10^3/uL (1.5-5.0); LYMPH % 43.5 % (24.0-44.0); MEAN CORPUSCULAR HEMOGLOBIN 26.5 pg (27.0-33.0); MEAN CORPUSCULAR HGB CONC 30.8 g/dl (32.0-36.5); MEAN CORPUSCULAR VOLUME 86.1 fl (80.0-96.0); MONO # 0.5 10^3/uL (0.0-0.8); MONO % 9.8 % (2.0-8.0); NEUTROPHILS # 2.2 10^3/uL (1.5-8.5); PLATELET COUNT, AUTOMATED 278 10^3/uL (150-450); RED BLOOD COUNT 3.24 10^6/uL (4.00-5.40); WHITE BLOOD COUNT 5.4 10^3/uL (4.0-10.0)
[2023-10-16 14:36] LABS: ALBUMIN 3.2 G/DL (3.2-5.2); ALKALINE PHOSPHATASE 66 U/L (46-116); ALT/SGPT 15 U/L (7.0-40); AST/SGOT 12 U/L (<34); BILIRUBIN,TOTAL 0.2 MG/DL (0.3-1.2); BLOOD UREA NITROGEN 14 MG/DL (9-23); CALCIUM LEVEL 8.4 MG/DL (8.5-10.1); CARBON DIOXIDE LEVEL 24 MMOL/L (20-31); CHLORIDE LEVEL 105 MMOL/L (98-107); CREATININE FOR GFR 0.42 MG/DL (0.55-1.30); GLOMERULAR FILTRATION RATE > 60.0 (>60); GLUCOSE, FASTING 99 MG/DL (60-100); MAGNESIUM LEVEL 1.9 MG/DL (1.8-2.4); POTASSIUM SERUM 4.3 MMOL/L (3.5-5.1); SODIUM LEVEL 137 MMOL/L (136-145); TOTAL PROTEIN 6.2 G/DL (5.7-8.2); TRIGLYCERIDES LEVEL 118 MG/DL (<150)
== END ==
LOC: M SHH 13:47
PROVIDERS: ATTEND Internal Medicine Gastroenterology
DX: R63.30 Feeding difficulties, unspecified (principal); B96.1 Klebsiella pneumoniae [K. pneumoniae] as the cause of diseases classified elsewhere

== ENCOUNTER → 2023-10-23 | Outpatient (REF) | payer BC ==
[2023-10-23 13:56] LABS: BASO % 0.2 % (0.0-1.0); EOS # 0.2 10^3/uL (0.0-0.5); EOS % 4.2 % (0.0-3.0); HEMATOCRIT 23.3 % (36.0-47.0); HEMOGLOBIN 7.3 g/dl (12.0-15.5); LYMPH # 1.9 10^3/uL (1.5-5.0); LYMPH % 39.4 % (24.0-44.0); MEAN CORPUSCULAR HEMOGLOBIN 26.6 pg (27.0-33.0); MEAN CORPUSCULAR HGB CONC 31.3 g/dl (32.0-36.5); MONO # 0.5 10^3/uL (0.0-0.8); MONO % 9.6 % (2.0-8.0); NEUTROPHILS # 2.2 10^3/uL (1.5-8.5); NEUTROPHILS % 46.4 % (36.0-66.0); PLATELET COUNT, AUTOMATED 280 10^3/uL (150-450); RED BLOOD COUNT 2.74 10^6/uL (4.00-5.40); WHITE BLOOD COUNT 4.8 10^3/uL (4.0-10.0)
[2023-10-23 14:30] LABS: ALBUMIN 3.2 G/DL (3.2-5.2); ALKALINE PHOSPHATASE 64 U/L (46-116); ALT/SGPT 22 U/L (7.0-40); AST/SGOT 15 U/L (<34); BILIRUBIN,TOTAL 0.2 MG/DL (0.3-1.2); BLOOD UREA NITROGEN 14 MG/DL (9-23); CALCIUM LEVEL 8.1 MG/DL (8.5-10.1); CARBON DIOXIDE LEVEL 24 MMOL/L (20-31); CHLORIDE LEVEL 107 MMOL/L (98-107); GLOMERULAR FILTRATION RATE > 60.0 (>60); GLUCOSE, FASTING 84 MG/DL (60-100); PHOSPHORUS LEVEL 4.4 MG/DL (2.5-4.9); POTASSIUM SERUM 4.3 MMOL/L (3.5-5.1); SODIUM LEVEL 139 MMOL/L (136-145); TOTAL PROTEIN 6.1 G/DL (5.7-8.2); TRIGLYCERIDES LEVEL 75 MG/DL (<150)
== END ==
LOC: M SHH 13:19
PROVIDERS: ATTEND Internal Medicine Gastroenterology
DX: E46 Unspecified protein-calorie malnutrition (principal); T80.219A Unspecified infection due to central venous catheter, initial encounter; R63.30 Feeding difficulties, unspecified; B96.1 Klebsiella pneumoniae [K. pneumoniae] as the cause of diseases classified elsewhere; Q79.60 Ehlers-Danlos syndrome, unspecified; K31.84 Gastroparesis

== ENCOUNTER → 2023-10-30 | Outpatient (REF) | payer BC ==
[2023-10-30 15:26] LABS: BASO % 0.2 % (0.0-1.0); EOS # 0.1 10^3/uL (0.0-0.5); EOS % 1.5 % (0.0-3.0); LYMPH # 1.1 10^3/uL (1.5-5.0); LYMPH % 23.6 % (24.0-44.0); MEAN CORPUSCULAR HEMOGLOBIN 25.2 pg (27.0-33.0); MEAN CORPUSCULAR HGB CONC 30.4 g/dl (32.0-36.5); MEAN CORPUSCULAR VOLUME 82.7 fl (80.0-96.0); MONO # 0.3 10^3/uL (0.0-0.8); MONO % 6.2 % (2.0-8.0); NEUTROPHILS # 3.2 10^3/uL (1.5-8.5); NEUTROPHILS % 68.1 % (36.0-66.0); PLATELET COUNT, AUTOMATED 266 10^3/uL (150-450); RED BLOOD COUNT 2.78 10^6/uL (4.00-5.40); WHITE BLOOD COUNT 4.7 10^3/uL (4.0-10.0)
[2023-10-30 15:50] LABS: ALBUMIN 3.5 G/DL (3.2-5.2); ALKALINE PHOSPHATASE 65 U/L (46-116); ALT/SGPT 19 U/L (7.0-40); AST/SGOT 16 U/L (<34); BILIRUBIN,TOTAL 0.2 MG/DL (0.3-1.2); BLOOD UREA NITROGEN 16 MG/DL (9-23); CALCIUM LEVEL 8.8 MG/DL (8.5-10.1); CARBON DIOXIDE LEVEL 23 MMOL/L (20-31); CHLORIDE LEVEL 109 MMOL/L (98-107); CREATININE FOR GFR 0.46 MG/DL (0.55-1.30); GLOMERULAR FILTRATION RATE > 60.0 (>60); GLUCOSE, FASTING 76 MG/DL (60-100); PHOSPHORUS LEVEL 4.9 MG/DL (2.5-4.9); POTASSIUM SERUM 4.3 MMOL/L (3.5-5.1); SODIUM LEVEL 141 MMOL/L (136-145); TOTAL PROTEIN 6.4 G/DL (5.7-8.2); TRIGLYCERIDES LEVEL 66 MG/DL (<150)
== END ==
LOC: M SHH 14:58
PROVIDERS: ATTEND Internal Medicine Gastroenterology
DX: K31.84 Gastroparesis (principal); Q79.60 Ehlers-Danlos syndrome, unspecified; E46 Unspecified protein-calorie malnutrition

== ENCOUNTER → 2023-11-06 | Outpatient (REF) | payer BC ==
[2023-11-06 14:29] LABS: BASO % 0.2 % (0.0-1.0); EOS # 0.2 10^3/uL (0.0-0.5); EOS % 3.4 % (0.0-3.0); HEMATOCRIT 22.7 % (36.0-47.0); LYMPH # 1.6 10^3/uL (1.5-5.0); MEAN CORPUSCULAR HGB CONC 30.8 g/dl (32.0-36.5); MEAN CORPUSCULAR VOLUME 81.1 fl (80.0-96.0); MONO # 0.6 10^3/uL (0.0-0.8); MONO % 13.1 % (2.0-8.0); NEUTROPHILS # 2.1 10^3/uL (1.5-8.5); NEUTROPHILS % 48.1 % (36.0-66.0); PLATELET COUNT, AUTOMATED 310 10^3/uL (150-450); WHITE BLOOD COUNT 4.4 10^3/uL (4.0-10.0)
[2023-11-06 14:56] LABS: ALBUMIN 3.5 G/DL (3.2-5.2); ALKALINE PHOSPHATASE 65 U/L (46-116); ALT/SGPT 18 U/L (7.0-40); AST/SGOT 11 U/L (<34); BILIRUBIN,TOTAL 0.3 MG/DL (0.3-1.2); BLOOD UREA NITROGEN 19 MG/DL (9-23); CALCIUM LEVEL 8.9 MG/DL (8.5-10.1); CARBON DIOXIDE LEVEL 27 MMOL/L (20-31); CHLORIDE LEVEL 104 MMOL/L (98-107); CREATININE FOR GFR 0.46 MG/DL (0.55-1.30); GLOMERULAR FILTRATION RATE > 60.0 (>60); GLUCOSE, FASTING 88 MG/DL (60-100); MAGNESIUM LEVEL 1.9 MG/DL (1.8-2.4); PHOSPHORUS LEVEL 3.9 MG/DL (2.5-4.9); POTASSIUM SERUM 4.1 MMOL/L (3.5-5.1); SODIUM LEVEL 139 MMOL/L (136-145); TOTAL PROTEIN 6.5 G/DL (5.7-8.2); TRIGLYCERIDES LEVEL 38 MG/DL (<150)
== END ==
LOC: M SHH 13:26
PROVIDERS: ATTEND Internal Medicine Gastroenterology
DX: E46 Unspecified protein-calorie malnutrition (principal); T80.219A Unspecified infection due to central venous catheter, initial encounter; B96.1 Klebsiella pneumoniae [K. pneumoniae] as the cause of diseases classified elsewhere; R63.30 Feeding difficulties, unspecified; Y83.1 Surgical operation with implant of artificial internal device as the cause of abnormal reaction of the patient, or of later complication, without mention of misadventure at the time of the procedure

== ENCOUNTER → 2023-11-07 | Outpatient (CLI) | payer BC ==
[~2023-11-07] MED LIST changes: +GASTROGRAFIN SOLUTION 30ML As Ordered ONE
== END ==
LOC: M RAD 09:58
PROVIDERS: ATTEND Internal Medicine Gastroenterology
DX: K31.84 Gastroparesis (principal); Z93.1 Gastrostomy status
CPT/HCPCS: 74240; Q9963

== ENCOUNTER → 2023-11-14 | Outpatient (REF) | payer BC ==
[~2023-11-14] MED LIST changes: -GASTROGRAFIN SOLUTION 30ML As Ordered ONE
[2023-11-14 15:02] LABS: ALBUMIN 3.2 G/DL (3.2-5.2); ALKALINE PHOSPHATASE 63 U/L (46-116); ALT/SGPT < 9 U/L (7.0-40); AST/SGOT 10 U/L (<34); BILIRUBIN,TOTAL 0.2 MG/DL (0.3-1.2); BLOOD UREA NITROGEN 18 MG/DL (9-23); CALCIUM LEVEL 8.3 MG/DL (8.5-10.1); CARBON DIOXIDE LEVEL 27 MMOL/L (20-31); CHLORIDE LEVEL 103 MMOL/L (98-107); CREATININE FOR GFR 0.51 MG/DL (0.55-1.30); GLOMERULAR FILTRATION RATE > 60.0 (>60); GLUCOSE, FASTING 90 MG/DL (60-100); MAGNESIUM LEVEL 2.1 MG/DL (1.8-2.4); PHOSPHORUS LEVEL 4.3 MG/DL (2.5-4.9); POTASSIUM SERUM 3.6 MMOL/L (3.5-5.1); SODIUM LEVEL 136 MMOL/L (136-145); TOTAL PROTEIN 6.2 G/DL (5.7-8.2); TRIGLYCERIDES LEVEL 49 MG/DL (<150)
[2023-11-14 15:05] LABS: BASO % 0.2 % (0.0-1.0); EOS # 0.2 10^3/uL (0.0-0.5); EOS % 3.7 % (0.0-3.0); LYMPH # 1.9 10^3/uL (1.5-5.0); LYMPH % 44.3 % (24.0-44.0); MEAN CORPUSCULAR HGB CONC 30.8 g/dl (32.0-36.5); MEAN CORPUSCULAR VOLUME 77.9 fl (80.0-96.0); MONO # 0.4 10^3/uL (0.0-0.8); MONO % 9.1 % (2.0-8.0); NEUTROPHILS # 1.8 10^3/uL (1.5-8.5); NEUTROPHILS % 42.5 % (36.0-66.0); PLATELET COUNT, AUTOMATED 313 10^3/uL (150-450); RED BLOOD COUNT 2.58 10^6/uL (4.00-5.40); WHITE BLOOD COUNT 4.3 10^3/uL (4.0-10.0)
[2023-11-14 15:07] LABS: HEMATOCRIT 20.1 % (36.0-47.0); HEMOGLOBIN 6.2 g/dl (12.0-15.5)
== END ==
LOC: M SHH 14:20
PROVIDERS: ATTEND Internal Medicine Gastroenterology
DX: K31.84 Gastroparesis (principal); Q79.60 Ehlers-Danlos syndrome, unspecified; E46 Unspecified protein-calorie malnutrition

== ENCOUNTER → 2023-11-23 | Outpatient (REF) | payer BC ==
[2023-11-23 13:15] LABS: BASO % 0.5 % (0.0-1.0); HEMOGLOBIN 7.4 g/dl (12.0-15.5); LYMPH # 1.3 10^3/uL (1.5-5.0); LYMPH % 31.3 % (24.0-44.0); MEAN CORPUSCULAR HGB CONC 29.6 g/dl (32.0-36.5); MEAN CORPUSCULAR VOLUME 74.4 fl (80.0-96.0); MONO # 0.6 10^3/uL (0.0-0.8); MONO % 13.6 % (2.0-8.0); NEUTROPHILS # 2.2 10^3/uL (1.5-8.5); NEUTROPHILS % 53.4 % (36.0-66.0); PLATELET COUNT, AUTOMATED 448 10^3/uL (150-450); RED BLOOD COUNT 3.36 10^6/uL (4.00-5.40); WHITE BLOOD COUNT 4.1 10^3/uL (4.0-10.0)
[2023-11-23 13:52] LABS: ALBUMIN 4.1 G/DL (3.2-5.2); ALKALINE PHOSPHATASE 78 U/L (46-116); ALT/SGPT 10 U/L (7.0-40); AST/SGOT 9 U/L (<34); BILIRUBIN,TOTAL 0.3 MG/DL (0.3-1.2); BLOOD UREA NITROGEN 24 MG/DL (9-23); CALCIUM LEVEL 9.4 MG/DL (8.5-10.1); CARBON DIOXIDE LEVEL 31 MMOL/L (20-31); CHLORIDE LEVEL 100 MMOL/L (98-107); CREATININE FOR GFR 0.51 MG/DL (0.55-1.30); GLOMERULAR FILTRATION RATE > 60.0 (>60); GLUCOSE, FASTING 72 MG/DL (60-100); MAGNESIUM LEVEL 2.4 MG/DL (1.8-2.4); PHOSPHORUS LEVEL 3.6 MG/DL (2.5-4.9); POTASSIUM SERUM 3.5 MMOL/L (3.5-5.1); SODIUM LEVEL 137 MMOL/L (136-145); TOTAL PROTEIN 7.6 G/DL (5.7-8.2); TRIGLYCERIDES LEVEL 74 MG/DL (<150)
== END ==
LOC: M SHH 12:46
PROVIDERS: ATTEND Internal Medicine Gastroenterology
DX: K31.84 Gastroparesis (principal); Q79.60 Ehlers-Danlos syndrome, unspecified

== ENCOUNTER 2023-11-27 18:05 | Emergency (ER) | payer BC ==
[~2023-11-27] VITALS: Ht 172.7 cm; Wt 47.3 kg
[2023-11-27 20:01] LABS: BASO % 0.8 % (0.0-1.0); EOS # 0.1 10^3/uL (0.0-0.5); EOS % 1.5 % (0.0-3.0); LYMPH # 1.5 10^3/uL (1.5-5.0); LYMPH % 37.6 % (24.0-44.0); MEAN CORPUSCULAR HEMOGLOBIN 21.5 pg (27.0-33.0); MEAN CORPUSCULAR HGB CONC 30.3 g/dl (32.0-36.5); MONO # 0.4 10^3/uL (0.0-0.8); MONO % 9.3 % (2.0-8.0); NEUTROPHILS % 50.5 % (36.0-66.0); PLATELET COUNT, AUTOMATED 308 10^3/uL (150-450); RED BLOOD COUNT 2.79 10^6/uL (4.00-5.40); WHITE BLOOD COUNT 3.9 10^3/uL (4.0-10.0)
[2023-11-27 20:02] LABS: INR 1.17; PROTHROMBIN TIME 14.6 SECONDS (12.5-14.5)
[2023-11-27 20:03] LABS: PARTIAL THROMBOPLASTIN TIME 27.7 SECONDS (24.8-34.2)
[2023-11-27 20:04] LABS: HEMATOCRIT 19.8 % (36.0-47.0)
[2023-11-27 20:14] LABS: LIPASE 26 U/L (12-53)
[2023-11-27 20:15] LABS: AMYLASE 70 U/L (30-118)
[2023-11-27 20:16] LABS: ALBUMIN 3.4 G/DL (3.2-5.2); ALKALINE PHOSPHATASE 65 U/L (46-116); ALT/SGPT < 9 U/L (7.0-40); AST/SGOT < 8 U/L (<34); BILIRUBIN,DIRECT < 0.1 MG/DL (<0.4); BILIRUBIN,TOTAL 0.2 MG/DL (0.3-1.2); BLOOD UREA NITROGEN 16 MG/DL (9-23); CALCIUM LEVEL 8.5 MG/DL (8.5-10.1); CARBON DIOXIDE LEVEL 29 MMOL/L (20-31); CHLORIDE LEVEL 106 MMOL/L (98-107); GLOMERULAR FILTRATION RATE > 60.0 (>60); GLUCOSE, FASTING 85 MG/DL (60-100); HCG, SERUM QUANTITATIVE < 2.6 MIU/ML (<4.2); POTASSIUM SERUM 3.4 MMOL/L (3.5-5.1); SODIUM LEVEL 140 MMOL/L (136-145); TOTAL PROTEIN 6.2 G/DL (5.7-8.2)
[2023-11-27 21:31] VITALS: BP 92/55; TEMP 97.4; O2SAT 100
[2023-11-27 21:47] VITALS: BP_SYST 95; BP_DIAS 55; BP_DIAS 61; TEMP 97.4; O2SAT 98
[2023-11-27 22:32] VITALS: BP 95/59; TEMP 98.2; O2SAT 98
[2023-11-27 22:47] VITALS: BP 95/58; TEMP 98.2; O2SAT 98
[2023-11-27 23:34] VITALS: BP 65/54; TEMP 97.7; O2SAT 100
[2023-11-27 23:58] VITALS: BP 95/53; TEMP 97.9; O2SAT 98
[2023-11-28 00:17] VITALS: BP 95/59; TEMP 97.9; O2SAT 100
[2023-11-28 01:02] VITALS: BP 90/55; TEMP 97.5; O2SAT 97
[2023-11-28 01:54] VITALS: BP 99/52; TEMP 97.9; O2SAT 97
== END 2023-11-28 01:56 | disposition home or self-care (01) ==
LOC: M ED 18:05
DX: D64.9 Anemia, unspecified (principal); G43.909 Migraine, unspecified, not intractable, without status migrainosus; J45.909 Unspecified asthma, uncomplicated; F41.9 Anxiety disorder, unspecified; Z79.891 Long term (current) use of opiate analgesic; Z79.83 Long term (current) use of bisphosphonates; Z79.899 Other long term (current) drug therapy
CPT/HCPCS: 36415; 36430; 80048; 80076; 82150; 83010; 83605; 83690; 84702; 85025; 85046; 85610; 85730; 86850; 86900; 86901; 86920; 93041; 99285; P9016

== ENCOUNTER → 2023-11-27 | Outpatient (REF) | payer BC ==
[2023-11-27 14:29] LABS: BASO % 0.2 % (0.0-1.0); EOS # 0.1 10^3/uL (0.0-0.5); EOS % 1.5 % (0.0-3.0); LYMPH # 1.2 10^3/uL (1.5-5.0); LYMPH % 26.2 % (24.0-44.0); MEAN CORPUSCULAR HGB CONC 29.8 g/dl (32.0-36.5); MEAN CORPUSCULAR VOLUME 73.8 fl (80.0-96.0); MONO # 0.3 10^3/uL (0.0-0.8); MONO % 6.6 % (2.0-8.0); NEUTROPHILS % 65.3 % (36.0-66.0); PLATELET COUNT, AUTOMATED 315 10^3/uL (150-450); RED BLOOD COUNT 2.82 10^6/uL (4.00-5.40); WHITE BLOOD COUNT 4.5 10^3/uL (4.0-10.0)
[2023-11-27 14:35] LABS: HEMATOCRIT 20.8 % (36.0-47.0); HEMOGLOBIN 6.2 g/dl (12.0-15.5)
[2023-11-27 14:52] LABS: ALBUMIN 3.5 G/DL (3.2-5.2); ALKALINE PHOSPHATASE 72 U/L (46-116); ALT/SGPT < 9 U/L (7.0-40); AST/SGOT 8 U/L (<34); BILIRUBIN,TOTAL 0.2 MG/DL (0.3-1.2); BLOOD UREA NITROGEN 20 MG/DL (9-23); CALCIUM LEVEL 8.4 MG/DL (8.5-10.1); CARBON DIOXIDE LEVEL 28 MMOL/L (20-31); CHLORIDE LEVEL 104 MMOL/L (98-107); CREATININE FOR GFR 0.49 MG/DL (0.55-1.30); GLOMERULAR FILTRATION RATE > 60.0 (>60); GLUCOSE, FASTING 92 MG/DL (60-100); PHOSPHORUS LEVEL 3.3 MG/DL (2.5-4.9); POTASSIUM SERUM 3.9 MMOL/L (3.5-5.1); SODIUM LEVEL 137 MMOL/L (136-145); TOTAL PROTEIN 6.4 G/DL (5.7-8.2); TRIGLYCERIDES LEVEL 62 MG/DL (<150)
== END ==
LOC: M SHH 14:11
PROVIDERS: ATTEND Nurse Practitioner Family
DX: D64.9 Anemia, unspecified (principal); K31.84 Gastroparesis; Q79.60 Ehlers-Danlos syndrome, unspecified

== ENCOUNTER → 2023-12-04 | Outpatient (REF) | payer BC ==
[2023-12-04 11:35] LABS: BASO % 0.5 % (0.0-1.0); EOS # 0.2 10^3/uL (0.0-0.5); EOS % 4.3 % (0.0-3.0); HEMATOCRIT 29.8 % (36.0-47.0); HEMOGLOBIN 9.2 g/dl (12.0-15.5); LYMPH # 2.1 10^3/uL (1.5-5.0); LYMPH % 53.4 % (24.0-44.0); MEAN CORPUSCULAR HEMOGLOBIN 24.3 pg (27.0-33.0); MEAN CORPUSCULAR HGB CONC 30.9 g/dl (32.0-36.5); MEAN CORPUSCULAR VOLUME 78.6 fl (80.0-96.0); MONO # 0.5 10^3/uL (0.0-0.8); MONO % 11.7 % (2.0-8.0); NEUTROPHILS # 1.2 10^3/uL (1.5-8.5); NEUTROPHILS % 29.8 % (36.0-66.0); PLATELET COUNT, AUTOMATED 235 10^3/uL (150-450); RED BLOOD COUNT 3.79 10^6/uL (4.00-5.40); WHITE BLOOD COUNT 3.9 10^3/uL (4.0-10.0)
[2023-12-04 12:03] LABS: ALBUMIN 3.2 G/DL (3.2-5.2); ALKALINE PHOSPHATASE 61 U/L (46-116); ALT/SGPT 12 U/L (7.0-40); AST/SGOT 10 U/L (<34); BILIRUBIN,TOTAL 0.3 MG/DL (0.3-1.2); BLOOD UREA NITROGEN 16 MG/DL (9-23); CALCIUM LEVEL 8.2 MG/DL (8.5-10.1); CARBON DIOXIDE LEVEL 25 MMOL/L (20-31); CHLORIDE LEVEL 108 MMOL/L (98-107); CREATININE FOR GFR 0.51 MG/DL (0.55-1.30); GLOMERULAR FILTRATION RATE > 60.0 (>60); GLUCOSE, FASTING 54 MG/DL (60-100); PHOSPHORUS LEVEL 4.8 MG/DL (2.5-4.9); POTASSIUM SERUM 4.5 MMOL/L (3.5-5.1); SODIUM LEVEL 139 MMOL/L (136-145); TRIGLYCERIDES LEVEL 31 MG/DL (<150)
== END ==
LOC: M LAB REF 11:14 → M SHH 11:14
PROVIDERS: ATTEND Nurse Practitioner Adult Health
DX: D64.9 Anemia, unspecified (principal)

== ENCOUNTER → 2023-12-11 | Outpatient (REF) | payer BC ==
[2023-12-11 15:44] LABS: BASO % 0.6 % (0.0-1.0); EOS # 0.1 10^3/uL (0.0-0.5); EOS % 4.2 % (0.0-3.0); HEMATOCRIT 31.9 % (36.0-47.0); HEMOGLOBIN 9.9 g/dl (12.0-15.5); LYMPH # 1.5 10^3/uL (1.5-5.0); LYMPH % 43.5 % (24.0-44.0); MEAN CORPUSCULAR HEMOGLOBIN 24.3 pg (27.0-33.0); MEAN CORPUSCULAR VOLUME 78.4 fl (80.0-96.0); MONO # 0.5 10^3/uL (0.0-0.8); MONO % 15.5 % (2.0-8.0); NEUTROPHILS # 1.2 10^3/uL (1.5-8.5); NEUTROPHILS % 36.2 % (36.0-66.0); PLATELET COUNT, AUTOMATED 201 10^3/uL (150-450); RED BLOOD COUNT 4.07 10^6/uL (4.00-5.40); WHITE BLOOD COUNT 3.4 10^3/uL (4.0-10.0)
[2023-12-11 16:16] LABS: ALBUMIN 3.4 G/DL (3.2-5.2); ALKALINE PHOSPHATASE 66 U/L (46-116); ALT/SGPT 19 U/L (7.0-40); AST/SGOT 13 U/L (<34); BILIRUBIN,TOTAL 0.2 MG/DL (0.3-1.2); BLOOD UREA NITROGEN 14 MG/DL (9-23); CALCIUM LEVEL 8.8 MG/DL (8.5-10.1); CARBON DIOXIDE LEVEL 29 MMOL/L (20-31); CHLORIDE LEVEL 104 MMOL/L (98-107); CREATININE FOR GFR 0.63 MG/DL (0.55-1.30); GLOMERULAR FILTRATION RATE > 60.0 (>60); GLUCOSE, FASTING 82 MG/DL (60-100); MAGNESIUM LEVEL 2.3 MG/DL (1.8-2.4); PHOSPHORUS LEVEL 4.2 MG/DL (2.5-4.9); POTASSIUM SERUM 4.2 MMOL/L (3.5-5.1); SODIUM LEVEL 139 MMOL/L (136-145); TOTAL PROTEIN 6.8 G/DL (5.7-8.2); TRIGLYCERIDES LEVEL 69 MG/DL (<150)
== END ==
LOC: M SHH 14:51
PROVIDERS: ATTEND Nurse Practitioner Family
DX: D64.9 Anemia, unspecified (principal)

== ENCOUNTER → 2023-12-18 | Outpatient (REF) | payer BC ==
[2023-12-18 14:14] LABS: BASO % 0.5 % (0.0-1.0); EOS # 0.1 10^3/uL (0.0-0.5); HEMATOCRIT 33.9 % (36.0-47.0); HEMOGLOBIN 10.2 g/dl (12.0-15.5); LYMPH # 1.9 10^3/uL (1.5-5.0); LYMPH % 33.7 % (24.0-44.0); MEAN CORPUSCULAR HEMOGLOBIN 24.2 pg (27.0-33.0); MEAN CORPUSCULAR HGB CONC 30.1 g/dl (32.0-36.5); MEAN CORPUSCULAR VOLUME 80.5 fl (80.0-96.0); MONO # 0.5 10^3/uL (0.0-0.8); NEUTROPHILS # 3.1 10^3/uL (1.5-8.5); NEUTROPHILS % 55.6 % (36.0-66.0); PLATELET COUNT, AUTOMATED 279 10^3/uL (150-450); RED BLOOD COUNT 4.21 10^6/uL (4.00-5.40); WHITE BLOOD COUNT 5.6 10^3/uL (4.0-10.0)
[2023-12-18 14:15] LABS: C REACTIVE PROTEIN QUANTITATIV < 0.40 MG/DL (<1.0); LDH LACTATE DEHYDROGENASE 155 U/L (120-246)
[2023-12-18 14:17] LABS: ALBUMIN 3.7 G/DL (3.2-5.2); ALKALINE PHOSPHATASE 61 U/L (46-116); ALT/SGPT 17 U/L (7.0-40); AST/SGOT 12 U/L (<34); BILIRUBIN,TOTAL 0.3 MG/DL (0.3-1.2); BLOOD UREA NITROGEN 16 MG/DL (9-23); CALCIUM LEVEL 8.8 MG/DL (8.5-10.1); CARBON DIOXIDE LEVEL 29 MMOL/L (20-31); CHLORIDE LEVEL 103 MMOL/L (98-107); GLOMERULAR FILTRATION RATE > 60.0 (>60); GLUCOSE, FASTING 83 MG/DL (60-100); POTASSIUM SERUM 4.4 MMOL/L (3.5-5.1); SODIUM LEVEL 136 MMOL/L (136-145); TOTAL PROTEIN 7.3 G/DL (5.7-8.2)
[2023-12-18 14:44] LABS: ERYTHROCYTE SEDIMENTATION RATE 42 mm/hr (0-20)
== END ==
LOC: M SHH 12:57
PROVIDERS: ATTEND Nurse Practitioner Family
DX: R59.0 Localized enlarged lymph nodes (principal)

== ENCOUNTER → 2023-12-18 | Outpatient (REF) | payer BC ==
[2023-12-18 14:14] LABS: BASO % 0.5 % (0.0-1.0); EOS # 0.1 10^3/uL (0.0-0.5); EOS % 2.1 % (0.0-3.0); HEMATOCRIT 33.8 % (36.0-47.0); HEMOGLOBIN 10.8 g/dl (12.0-15.5); LYMPH # 1.9 10^3/uL (1.5-5.0); LYMPH % 33.3 % (24.0-44.0); MEAN CORPUSCULAR HEMOGLOBIN 25.6 pg (27.0-33.0); MEAN CORPUSCULAR VOLUME 80.1 fl (80.0-96.0); MONO # 0.4 10^3/uL (0.0-0.8); MONO % 7.3 % (2.0-8.0); NEUTROPHILS # 3.2 10^3/uL (1.5-8.5); NEUTROPHILS % 56.6 % (36.0-66.0); PLATELET COUNT, AUTOMATED 274 10^3/uL (150-450); RED BLOOD COUNT 4.22 10^6/uL (4.00-5.40); WHITE BLOOD COUNT 5.6 10^3/uL (4.0-10.0)
[2023-12-18 14:16] LABS: ALBUMIN 3.7 G/DL (3.2-5.2); ALKALINE PHOSPHATASE 60 U/L (46-116); ALT/SGPT 16 U/L (7.0-40); AST/SGOT 14 U/L (<34); BILIRUBIN,TOTAL 0.3 MG/DL (0.3-1.2); BLOOD UREA NITROGEN 17 MG/DL (9-23); CALCIUM LEVEL 8.9 MG/DL (8.5-10.1); CARBON DIOXIDE LEVEL 29 MMOL/L (20-31); CHLORIDE LEVEL 104 MMOL/L (98-107); CREATININE FOR GFR 0.63 MG/DL (0.55-1.30); GLOMERULAR FILTRATION RATE > 60.0 (>60); GLUCOSE, FASTING 83 MG/DL (60-100); MAGNESIUM LEVEL 1.9 MG/DL (1.8-2.4); PHOSPHORUS LEVEL 5.2 MG/DL (2.5-4.9); POTASSIUM SERUM 4.6 MMOL/L (3.5-5.1); SODIUM LEVEL 137 MMOL/L (136-145); TOTAL PROTEIN 6.9 G/DL (5.7-8.2); TRIGLYCERIDES LEVEL 71 MG/DL (<150)
== END ==
LOC: M LAB REF 13:00
PROVIDERS: ATTEND Nurse Practitioner Family
DX: D64.9 Anemia, unspecified (principal)

== ENCOUNTER → 2023-12-25 | Outpatient (REF) | payer BC ==
[2023-12-25 15:40] LABS: BASO % 0.4 % (0.0-1.0); EOS % 0.8 % (0.0-3.0); HEMATOCRIT 33.2 % (36.0-47.0); HEMOGLOBIN 10.5 g/dl (12.0-15.5); LYMPH # 1.7 10^3/uL (1.5-5.0); LYMPH % 31.7 % (24.0-44.0); MEAN CORPUSCULAR HEMOGLOBIN 24.5 pg (27.0-33.0); MEAN CORPUSCULAR HGB CONC 31.6 g/dl (32.0-36.5); MEAN CORPUSCULAR VOLUME 77.4 fl (80.0-96.0); MONO # 0.7 10^3/uL (0.0-0.8); NEUTROPHILS # 2.8 10^3/uL (1.5-8.5); NEUTROPHILS % 53.9 % (36.0-66.0); PLATELET COUNT, AUTOMATED 205 10^3/uL (150-450); RED BLOOD COUNT 4.29 10^6/uL (4.00-5.40); WHITE BLOOD COUNT 5.2 10^3/uL (4.0-10.0)
[2023-12-25 16:09] LABS: ALBUMIN 3.7 G/DL (3.2-5.2); ALKALINE PHOSPHATASE 74 U/L (46-116); ALT/SGPT 14 U/L (7.0-40); AST/SGOT 13 U/L (<34); BILIRUBIN,TOTAL 0.3 MG/DL (0.3-1.2); BLOOD UREA NITROGEN 22 MG/DL (9-23); CALCIUM LEVEL 9.1 MG/DL (8.5-10.1); CARBON DIOXIDE LEVEL 31 MMOL/L (20-31); CHLORIDE LEVEL 98 MMOL/L (98-107); CREATININE FOR GFR 0.65 MG/DL (0.55-1.30); GLOMERULAR FILTRATION RATE > 60.0 (>60); GLUCOSE, FASTING 56 MG/DL (60-100); PHOSPHORUS LEVEL 4.7 MG/DL (2.5-4.9); POTASSIUM SERUM 3.3 MMOL/L (3.5-5.1); SODIUM LEVEL 136 MMOL/L (136-145); TOTAL PROTEIN 7.2 G/DL (5.7-8.2); TRIGLYCERIDES LEVEL 83 MG/DL (<150)
== END ==
LOC: M SHH 15:18
PROVIDERS: ATTEND Nurse Practitioner Family
DX: D64.9 Anemia, unspecified (principal)

== ENCOUNTER → 2024-01-01 | Outpatient (REF) | payer BC ==
[2024-01-01 13:30] LABS: BASO % 0.4 % (0.0-1.0); EOS # 0.2 10^3/uL (0.0-0.5); EOS % 3.1 % (0.0-3.0); HEMATOCRIT 28.1 % (36.0-47.0); HEMOGLOBIN 8.7 g/dl (12.0-15.5); LYMPH # 1.8 10^3/uL (1.5-5.0); LYMPH % 35.3 % (24.0-44.0); MEAN CORPUSCULAR HEMOGLOBIN 23.9 pg (27.0-33.0); MEAN CORPUSCULAR VOLUME 77.2 fl (80.0-96.0); MONO # 0.4 10^3/uL (0.0-0.8); MONO % 7.7 % (2.0-8.0); NEUTROPHILS # 2.8 10^3/uL (1.5-8.5); NEUTROPHILS % 53.3 % (36.0-66.0); PLATELET COUNT, AUTOMATED 231 10^3/uL (150-450); RED BLOOD COUNT 3.64 10^6/uL (4.00-5.40); WHITE BLOOD COUNT 5.2 10^3/uL (4.0-10.0)
[2024-01-01 14:25] LABS: ALBUMIN 3.3 G/DL (3.2-5.2); ALKALINE PHOSPHATASE 60 U/L (46-116); ALT/SGPT 13 U/L (7.0-40); AST/SGOT 14 U/L (<34); BILIRUBIN,TOTAL 0.2 MG/DL (0.3-1.2); BLOOD UREA NITROGEN 22 MG/DL (9-23); CALCIUM LEVEL 8.6 MG/DL (8.5-10.1); CARBON DIOXIDE LEVEL 27 MMOL/L (20-31); CHLORIDE LEVEL 102 MMOL/L (98-107); CREATININE FOR GFR 0.53 MG/DL (0.55-1.30); GLOMERULAR FILTRATION RATE > 60.0 (>60); GLUCOSE, FASTING 86 MG/DL (60-100); MAGNESIUM LEVEL 1.9 MG/DL (1.8-2.4); PHOSPHORUS LEVEL 4.8 MG/DL (2.5-4.9); SODIUM LEVEL 137 MMOL/L (136-145); TOTAL PROTEIN 6.5 G/DL (5.7-8.2); TRIGLYCERIDES LEVEL 61 MG/DL (<150)
== END ==
LOC: M SHH 13:00
PROVIDERS: ATTEND Nurse Practitioner Family
DX: D64.9 Anemia, unspecified (principal)

== ENCOUNTER → 2024-01-08 | Outpatient (REF) | payer BC ==
[~2024-01-08] MED LIST changes: -MIRA1POW3 JT; -MIRA1POW3 PO; +MIRA33506 JT; +MIRA33506 PO
[2024-01-08 13:42] LABS: BASO % 0.5 % (0.0-1.0); EOS # 0.1 10^3/uL (0.0-0.5); EOS % 1.8 % (0.0-3.0); HEMATOCRIT 29.6 % (36.0-47.0); HEMOGLOBIN 9.3 g/dl (12.0-15.5); LYMPH # 1.5 10^3/uL (1.5-5.0); LYMPH % 26.6 % (24.0-44.0); MEAN CORPUSCULAR HEMOGLOBIN 23.8 pg (27.0-33.0); MEAN CORPUSCULAR HGB CONC 31.4 g/dl (32.0-36.5); MEAN CORPUSCULAR VOLUME 75.9 fl (80.0-96.0); MONO # 0.4 10^3/uL (0.0-0.8); MONO % 7.6 % (2.0-8.0); NEUTROPHILS # 3.6 10^3/uL (1.5-8.5); NEUTROPHILS % 63.3 % (36.0-66.0); PLATELET COUNT, AUTOMATED 306 10^3/uL (150-450); WHITE BLOOD COUNT 5.7 10^3/uL (4.0-10.0)
[2024-01-08 14:07] LABS: ALBUMIN 3.6 G/DL (3.2-5.2); ALKALINE PHOSPHATASE 65 U/L (46-116); ALT/SGPT 15 U/L (7.0-40); AST/SGOT 13 U/L (<34); BILIRUBIN,TOTAL 0.3 MG/DL (0.3-1.2); BLOOD UREA NITROGEN 25 MG/DL (9-23); CALCIUM LEVEL 8.9 MG/DL (8.5-10.1); CARBON DIOXIDE LEVEL 31 MMOL/L (20-31); CHLORIDE LEVEL 97 MMOL/L (98-107); GLOMERULAR FILTRATION RATE > 60.0 (>60); GLUCOSE, FASTING 89 MG/DL (60-100); PHOSPHORUS LEVEL 5.1 MG/DL (2.5-4.9); POTASSIUM SERUM 3.5 MMOL/L (3.5-5.1); SODIUM LEVEL 135 MMOL/L (136-145); TOTAL PROTEIN 6.9 G/DL (5.7-8.2); TRIGLYCERIDES LEVEL 73 MG/DL (<150)
== END ==
LOC: M SHH 13:05
PROVIDERS: ATTEND Nurse Practitioner Family
DX: D64.9 Anemia, unspecified (principal)

== ENCOUNTER → 2024-01-17 | Outpatient (REF) | payer BC ==
[2024-01-17 12:15] LABS: BASO % 0.7 % (0.0-1.0); EOS # 0.1 10^3/uL (0.0-0.5); EOS % 4.7 % (0.0-3.0); HEMATOCRIT 30.5 % (36.0-47.0); HEMOGLOBIN 9.6 g/dl (12.0-15.5); LYMPH # 1.3 10^3/uL (1.5-5.0); LYMPH % 46.2 % (24.0-44.0); MEAN CORPUSCULAR HEMOGLOBIN 23.8 pg (27.0-33.0); MEAN CORPUSCULAR HGB CONC 31.5 g/dl (32.0-36.5); MEAN CORPUSCULAR VOLUME 75.5 fl (80.0-96.0); MONO # 0.4 10^3/uL (0.0-0.8); MONO % 12.5 % (2.0-8.0); NEUTROPHILS % 35.9 % (36.0-66.0); PLATELET COUNT, AUTOMATED 285 10^3/uL (150-450); RED BLOOD COUNT 4.04 10^6/uL (4.00-5.40); WHITE BLOOD COUNT 2.8 10^3/uL (4.0-10.0)
[2024-01-17 12:37] LABS: ALBUMIN 3.8 G/DL (3.2-5.2); ALKALINE PHOSPHATASE 68 U/L (46-116); ALT/SGPT 14 U/L (7.0-40); AST/SGOT 16 U/L (<34); BILIRUBIN,TOTAL 0.4 MG/DL (0.3-1.2); BLOOD UREA NITROGEN 23 MG/DL (9-23); CALCIUM LEVEL 9.4 MG/DL (8.5-10.1); CARBON DIOXIDE LEVEL 37 MMOL/L (20-31); CHLORIDE LEVEL 94 MMOL/L (98-107); CREATININE FOR GFR 0.65 MG/DL (0.55-1.30); GLOMERULAR FILTRATION RATE > 60.0 (>60); GLUCOSE, FASTING 71 MG/DL (60-100); POTASSIUM SERUM 3.3 MMOL/L (3.5-5.1); SODIUM LEVEL 137 MMOL/L (136-145); TOTAL PROTEIN 7.4 G/DL (5.7-8.2); TRIGLYCERIDES LEVEL 26 MG/DL (<150)
== END ==
LOC: M SHH 11:40
PROVIDERS: ATTEND Nurse Practitioner Family
DX: D64.9 Anemia, unspecified (principal)

== ENCOUNTER → 2024-01-24 | Outpatient (REF) | payer BC ==
[2024-01-24 14:29] LABS: BASO % 0.3 % (0.0-1.0); EOS # 0.1 10^3/uL (0.0-0.5); EOS % 3.4 % (0.0-3.0); HEMATOCRIT 27.4 % (36.0-47.0); HEMOGLOBIN 8.3 g/dl (12.0-15.5); LYMPH # 1.2 10^3/uL (1.5-5.0); LYMPH % 41.2 % (24.0-44.0); MEAN CORPUSCULAR HEMOGLOBIN 23.2 pg (27.0-33.0); MEAN CORPUSCULAR HGB CONC 30.3 g/dl (32.0-36.5); MEAN CORPUSCULAR VOLUME 76.5 fl (80.0-96.0); MONO # 0.3 10^3/uL (0.0-0.8); MONO % 8.9 % (2.0-8.0); NEUTROPHILS # 1.3 10^3/uL (1.5-8.5); NEUTROPHILS % 45.9 % (36.0-66.0); PLATELET COUNT, AUTOMATED 239 10^3/uL (150-450); RED BLOOD COUNT 3.58 10^6/uL (4.00-5.40); WHITE BLOOD COUNT 2.9 10^3/uL (4.0-10.0)
[2024-01-24 14:59] LABS: ALBUMIN 3.4 G/DL (3.2-5.2); ALKALINE PHOSPHATASE 57 U/L (46-116); ALT/SGPT 14 U/L (7.0-40); AST/SGOT 13 U/L (<34); BILIRUBIN,TOTAL 0.2 MG/DL (0.3-1.2); BLOOD UREA NITROGEN 21 MG/DL (9-23); CALCIUM LEVEL 8.4 MG/DL (8.5-10.1); CARBON DIOXIDE LEVEL 30 MMOL/L (20-31); CHLORIDE LEVEL 104 MMOL/L (98-107); CREATININE FOR GFR 0.56 MG/DL (0.55-1.30); GLOMERULAR FILTRATION RATE > 60.0 (>60); GLUCOSE, FASTING 85 MG/DL (60-100); MAGNESIUM LEVEL 1.8 MG/DL (1.8-2.4); PHOSPHORUS LEVEL 2.9 MG/DL (2.5-4.9); POTASSIUM SERUM 4.3 MMOL/L (3.5-5.1); SODIUM LEVEL 137 MMOL/L (136-145); TOTAL PROTEIN 6.5 G/DL (5.7-8.2); TRIGLYCERIDES LEVEL 46 MG/DL (<150)
== END ==
LOC: M SHH 13:29
PROVIDERS: ATTEND Nurse Practitioner Family
DX: D64.9 Anemia, unspecified (principal)

== ENCOUNTER → 2024-01-29 | Outpatient (REF) | payer BC ==
[2024-01-29 16:14] LABS: BASO % 0.5 % (0.0-1.0); EOS # 0.1 10^3/uL (0.0-0.5); EOS % 2.4 % (0.0-3.0); HEMATOCRIT 26.4 % (36.0-47.0); HEMOGLOBIN 7.9 g/dl (12.0-15.5); LYMPH # 1.6 10^3/uL (1.5-5.0); LYMPH % 41.2 % (24.0-44.0); MEAN CORPUSCULAR HEMOGLOBIN 23.3 pg (27.0-33.0); MEAN CORPUSCULAR HGB CONC 29.9 g/dl (32.0-36.5); MEAN CORPUSCULAR VOLUME 77.9 fl (80.0-96.0); MONO # 0.5 10^3/uL (0.0-0.8); MONO % 13.8 % (2.0-8.0); NEUTROPHILS # 1.6 10^3/uL (1.5-8.5); NEUTROPHILS % 42.1 % (36.0-66.0); PLATELET COUNT, AUTOMATED 232 10^3/uL (150-450); RED BLOOD COUNT 3.39 10^6/uL (4.00-5.40); WHITE BLOOD COUNT 3.8 10^3/uL (4.0-10.0)
[2024-01-29 16:33] LABS: ALBUMIN 3.2 G/DL (3.2-5.2); ALKALINE PHOSPHATASE 53 U/L (46-116); ALT/SGPT 13 U/L (7.0-40); AST/SGOT 10 U/L (<34); BILIRUBIN,TOTAL 0.4 MG/DL (0.3-1.2); BLOOD UREA NITROGEN 21 MG/DL (9-23); CALCIUM LEVEL 8.4 MG/DL (8.5-10.1); CARBON DIOXIDE LEVEL 26 MMOL/L (20-31); CHLORIDE LEVEL 108 MMOL/L (98-107); CREATININE FOR GFR 0.51 MG/DL (0.55-1.30); GLOMERULAR FILTRATION RATE > 60.0 (>60); GLUCOSE, FASTING 70 MG/DL (60-100); MAGNESIUM LEVEL 1.9 MG/DL (1.8-2.4); PHOSPHORUS LEVEL 3.2 MG/DL (2.5-4.9); POTASSIUM SERUM 4.8 MMOL/L (3.5-5.1); SODIUM LEVEL 139 MMOL/L (136-145); TOTAL PROTEIN 6.3 G/DL (5.7-8.2); TRIGLYCERIDES LEVEL 32 MG/DL (<150)
== END ==
LOC: M SHH 15:50
PROVIDERS: ATTEND Nurse Practitioner Family
DX: D64.9 Anemia, unspecified (principal)

== ENCOUNTER → 2024-02-05 | Outpatient (REF) | payer BC ==
[2024-02-05 16:09] LABS: BASO % 0.3 % (0.0-1.0); EOS # 0.1 10^3/uL (0.0-0.5); EOS % 1.9 % (0.0-3.0); HEMATOCRIT 24.1 % (36.0-47.0); HEMOGLOBIN 7.3 g/dl (12.0-15.5); LYMPH # 1.6 10^3/uL (1.5-5.0); LYMPH % 44.1 % (24.0-44.0); MEAN CORPUSCULAR HEMOGLOBIN 23.2 pg (27.0-33.0); MEAN CORPUSCULAR HGB CONC 30.3 g/dl (32.0-36.5); MEAN CORPUSCULAR VOLUME 76.5 fl (80.0-96.0); MONO # 0.5 10^3/uL (0.0-0.8); MONO % 13.4 % (2.0-8.0); NEUTROPHILS # 1.5 10^3/uL (1.5-8.5); NEUTROPHILS % 40.3 % (36.0-66.0); PLATELET COUNT, AUTOMATED 193 10^3/uL (150-450); RED BLOOD COUNT 3.15 10^6/uL (4.00-5.40); WHITE BLOOD COUNT 3.7 10^3/uL (4.0-10.0)
[2024-02-05 16:41] LABS: ALBUMIN 3.3 G/DL (3.2-5.2); ALKALINE PHOSPHATASE 57 U/L (46-116); ALT/SGPT 17 U/L (7.0-40); AST/SGOT 10 U/L (<34); BILIRUBIN,TOTAL 0.4 MG/DL (0.3-1.2); BLOOD UREA NITROGEN 20 MG/DL (9-23); CALCIUM LEVEL 8.6 MG/DL (8.5-10.1); CARBON DIOXIDE LEVEL 26 MMOL/L (20-31); CHLORIDE LEVEL 109 MMOL/L (98-107); GLOMERULAR FILTRATION RATE > 60.0 (>60); GLUCOSE, FASTING 77 MG/DL (60-100); IRON (FE) 19 UG/DL (50-170); MAGNESIUM LEVEL 1.9 MG/DL (1.8-2.4); PHOSPHORUS LEVEL 2.8 MG/DL (2.5-4.9); POTASSIUM SERUM 4.1 MMOL/L (3.5-5.1); SODIUM LEVEL 138 MMOL/L (136-145); TOTAL PROTEIN 6.2 G/DL (5.7-8.2); TRIGLYCERIDES LEVEL 18 MG/DL (<150)
[2024-02-05 16:42] LABS: TOTAL 25(OH) VITAMIN D 19.2 NG/ML (20.0-100.0)
[2024-02-05 16:43] LABS: FERRITIN 2.1 NG/ML (7.3-270.7)
== END ==
LOC: M SHH 15:30
PROVIDERS: ATTEND Nurse Practitioner Family
DX: D64.9 Anemia, unspecified (principal)

== ENCOUNTER → 2024-02-12 | Outpatient (REF) | payer BC ==
[2024-02-12 15:48] LABS: BASO % 0.4 % (0.0-1.0); EOS # 0.1 10^3/uL (0.0-0.5); EOS % 1.8 % (0.0-3.0); HEMATOCRIT 25.6 % (36.0-47.0); HEMOGLOBIN 7.6 g/dl (12.0-15.5); LYMPH # 1.6 10^3/uL (1.5-5.0); LYMPH % 35.6 % (24.0-44.0); MEAN CORPUSCULAR HGB CONC 29.7 g/dl (32.0-36.5); MEAN CORPUSCULAR VOLUME 77.6 fl (80.0-96.0); MONO # 0.4 10^3/uL (0.0-0.8); MONO % 8.9 % (2.0-8.0); NEUTROPHILS # 2.4 10^3/uL (1.5-8.5); NEUTROPHILS % 53.1 % (36.0-66.0); PLATELET COUNT, AUTOMATED 198 10^3/uL (150-450); WHITE BLOOD COUNT 4.5 10^3/uL (4.0-10.0)
[2024-02-12 16:07] LABS: ALBUMIN 3.6 G/DL (3.2-5.2); ALKALINE PHOSPHATASE 63 U/L (46-116); ALT/SGPT 17 U/L (7.0-40); AST/SGOT 11 U/L (<34); BILIRUBIN,TOTAL 0.3 MG/DL (0.3-1.2); BLOOD UREA NITROGEN 22 MG/DL (9-23); CALCIUM LEVEL 8.4 MG/DL (8.5-10.1); CARBON DIOXIDE LEVEL 28 MMOL/L (20-31); CHLORIDE LEVEL 107 MMOL/L (98-107); CREATININE FOR GFR 0.63 MG/DL (0.55-1.30); GLOMERULAR FILTRATION RATE > 60.0 (>60); GLUCOSE, FASTING 75 MG/DL (60-100); MAGNESIUM LEVEL 1.8 MG/DL (1.8-2.4); PHOSPHORUS LEVEL 3.8 MG/DL (2.5-4.9); SODIUM LEVEL 140 MMOL/L (136-145); TOTAL PROTEIN 6.7 G/DL (5.7-8.2); TRIGLYCERIDES LEVEL 44 MG/DL (<150)
== END ==
LOC: M SHH 14:37
PROVIDERS: ATTEND Nurse Practitioner Family
DX: D64.9 Anemia, unspecified (principal)

== ENCOUNTER 2024-02-14 14:32 | Emergency (ER) | payer BC ==
[~2024-02-14] VITALS: Ht 172.7 cm; Wt 49.0 kg
[2024-02-14 15:10] LABS: BASO % 0.4 % (0.0-1.0); EOS # 0.1 10^3/uL (0.0-0.5); EOS % 1.4 % (0.0-3.0); HEMOGLOBIN 8.4 g/dl (12.0-15.5); LYMPH # 1.2 10^3/uL (1.5-5.0); LYMPH % 23.5 % (24.0-44.0); MEAN CORPUSCULAR HEMOGLOBIN 22.9 pg (27.0-33.0); MEAN CORPUSCULAR VOLUME 76.3 fl (80.0-96.0); MONO # 0.3 10^3/uL (0.0-0.8); MONO % 5.8 % (2.0-8.0); NEUTROPHILS # 3.4 10^3/uL (1.5-8.5); NEUTROPHILS % 68.7 % (36.0-66.0); PLATELET COUNT, AUTOMATED 236 10^3/uL (150-450); RED BLOOD COUNT 3.67 10^6/uL (4.00-5.40)
[2024-02-14 15:43] LABS: BLOOD UREA NITROGEN 23 MG/DL (9-23); CALCIUM LEVEL 9.1 MG/DL (8.5-10.1); CARBON DIOXIDE LEVEL 28 MMOL/L (20-31); CHLORIDE LEVEL 106 MMOL/L (98-107); CREATININE FOR GFR 0.62 MG/DL (0.55-1.30); GLOMERULAR FILTRATION RATE > 60.0 (>60); GLUCOSE, FASTING 111 MG/DL (60-100); POTASSIUM SERUM 4.6 MMOL/L (3.5-5.1); SODIUM LEVEL 141 MMOL/L (136-145)
[2024-02-14 17:59] VITALS: BP 99/53; TEMP 98.4; O2SAT 99
== END 2024-02-14 18:02 | disposition home or self-care (01) ==
LOC: M ED 14:32
DX: D50.9 Iron deficiency anemia, unspecified (principal); K31.84 Gastroparesis; Q79.60 Ehlers-Danlos syndrome, unspecified; Z95.9 Presence of cardiac and vascular implant and graft, unspecified; Z93.4 Other artificial openings of gastrointestinal tract status; Z93.1 Gastrostomy status; Z86.718 Personal history of other venous thrombosis and embolism; Z79.899 Other long term (current) drug therapy; Z88.1 Allergy status to other antibiotic agents; Z88.8 Allergy status to other drugs, medicaments and biological substances

== ENCOUNTER → 2024-02-19 | Outpatient (REF) | payer BC ==
[2024-02-19 14:40] LABS: BASO % 0.3 % (0.0-1.0); EOS % 1.2 % (0.0-3.0); HEMATOCRIT 25.4 % (36.0-47.0); HEMOGLOBIN 7.5 g/dl (12.0-15.5); LYMPH # 1.1 10^3/uL (1.5-5.0); LYMPH % 34.6 % (24.0-44.0); MEAN CORPUSCULAR HEMOGLOBIN 22.9 pg (27.0-33.0); MEAN CORPUSCULAR HGB CONC 29.5 g/dl (32.0-36.5); MEAN CORPUSCULAR VOLUME 77.4 fl (80.0-96.0); MONO # 0.3 10^3/uL (0.0-0.8); MONO % 8.3 % (2.0-8.0); NEUTROPHILS # 1.8 10^3/uL (1.5-8.5); NEUTROPHILS % 55.3 % (36.0-66.0); PLATELET COUNT, AUTOMATED 230 10^3/uL (150-450); RED BLOOD COUNT 3.28 10^6/uL (4.00-5.40); WHITE BLOOD COUNT 3.2 10^3/uL (4.0-10.0)
[2024-02-19 15:06] LABS: ALBUMIN 3.7 G/DL (3.2-5.2); ALKALINE PHOSPHATASE 65 U/L (46-116); ALT/SGPT 16 U/L (7.0-40); AST/SGOT 11 U/L (<34); BILIRUBIN,TOTAL 0.3 MG/DL (0.3-1.2); BLOOD UREA NITROGEN 22 MG/DL (9-23); CALCIUM LEVEL 8.8 MG/DL (8.5-10.1); CARBON DIOXIDE LEVEL 27 MMOL/L (20-31); CHLORIDE LEVEL 107 MMOL/L (98-107); CREATININE FOR GFR 0.59 MG/DL (0.55-1.30); GLOMERULAR FILTRATION RATE > 60.0 (>60); GLUCOSE, FASTING 70 MG/DL (60-100); MAGNESIUM LEVEL 2.1 MG/DL (1.8-2.4); PHOSPHORUS LEVEL 3.4 MG/DL (2.5-4.9); POTASSIUM SERUM 4.4 MMOL/L (3.5-5.1); SODIUM LEVEL 140 MMOL/L (136-145); TOTAL PROTEIN 6.8 G/DL (5.7-8.2); TRIGLYCERIDES LEVEL 45 MG/DL (<150)
== END ==
LOC: M SHH 14:20
PROVIDERS: ATTEND Nurse Practitioner Family
DX: D64.9 Anemia, unspecified (principal)

== ENCOUNTER → 2024-02-26 | Outpatient (REF) | payer BC ==
[2024-02-26 09:24] LABS: BASO % 0.9 % (0.0-1.0); EOS # 0.1 10^3/uL (0.0-0.5); EOS % 3.8 % (0.0-3.0); HEMATOCRIT 24.5 % (36.0-47.0); HEMOGLOBIN 7.3 g/dl (12.0-15.5); LYMPH # 1.4 10^3/uL (1.5-5.0); LYMPH % 44.5 % (24.0-44.0); MEAN CORPUSCULAR HEMOGLOBIN 22.5 pg (27.0-33.0); MEAN CORPUSCULAR HGB CONC 29.8 g/dl (32.0-36.5); MEAN CORPUSCULAR VOLUME 75.4 fl (80.0-96.0); MONO # 0.5 10^3/uL (0.0-0.8); MONO % 15.8 % (2.0-8.0); NEUTROPHILS # 1.1 10^3/uL (1.5-8.5); NEUTROPHILS % 34.7 % (36.0-66.0); PLATELET COUNT, AUTOMATED 233 10^3/uL (150-450); RED BLOOD COUNT 3.25 10^6/uL (4.00-5.40); WHITE BLOOD COUNT 3.2 10^3/uL (4.0-10.0)
[2024-02-26 09:50] LABS: ALBUMIN 3.6 G/DL (3.2-5.2); ALKALINE PHOSPHATASE 67 U/L (46-116); ALT/SGPT 12 U/L (7.0-40); AST/SGOT 10 U/L (<34); BILIRUBIN,TOTAL 0.4 MG/DL (0.3-1.2); BLOOD UREA NITROGEN 22 MG/DL (9-23); CALCIUM LEVEL 8.8 MG/DL (8.5-10.1); CARBON DIOXIDE LEVEL 28 MMOL/L (20-31); CHLORIDE LEVEL 108 MMOL/L (98-107); CREATININE FOR GFR 0.55 MG/DL (0.55-1.30); GLOMERULAR FILTRATION RATE > 60.0 (>60); GLUCOSE, FASTING 77 MG/DL (60-100); MAGNESIUM LEVEL 1.8 MG/DL (1.8-2.4); PHOSPHORUS LEVEL 3.5 MG/DL (2.5-4.9); POTASSIUM SERUM 4.2 MMOL/L (3.5-5.1); SODIUM LEVEL 140 MMOL/L (136-145); TOTAL PROTEIN 6.8 G/DL (5.7-8.2); TRIGLYCERIDES LEVEL 51 MG/DL (<150)
== END ==
LOC: M SHH 09:09
PROVIDERS: ATTEND Nurse Practitioner Family
DX: D64.9 Anemia, unspecified (principal)

== ENCOUNTER 2024-03-01 18:53 | Emergency (ER) | payer BC ==
[~2024-03-01] VITALS: Ht 172.7 cm; Wt 49.8 kg
[2024-03-01 20:50] LABS: BASO % 0.5 % (0.0-1.0); EOS % 0.8 % (0.0-3.0); HEMATOCRIT 23.2 % (36.0-47.0); LYMPH # 1.8 10^3/uL (1.5-5.0); LYMPH % 48.7 % (24.0-44.0); MEAN CORPUSCULAR HEMOGLOBIN 22.2 pg (27.0-33.0); MEAN CORPUSCULAR HGB CONC 30.2 g/dl (32.0-36.5); MEAN CORPUSCULAR VOLUME 73.7 fl (80.0-96.0); MONO # 0.3 10^3/uL (0.0-0.8); MONO % 6.7 % (2.0-8.0); NEUTROPHILS # 1.6 10^3/uL (1.5-8.5); PLATELET COUNT, AUTOMATED 201 10^3/uL (150-450); RED BLOOD COUNT 3.15 10^6/uL (4.00-5.40); WHITE BLOOD COUNT 3.7 10^3/uL (4.0-10.0)
[2024-03-01] MEDS: NS 1,000 ML IV ONE (20:56)
[2024-03-01 21:03] LABS: LIPASE 27 U/L (12-53)
[2024-03-01 21:04] LABS: C REACTIVE PROTEIN QUANTITATIV < 0.40 MG/DL (<1.0)
[2024-03-01 21:05] LABS: ALBUMIN 3.7 G/DL (3.2-5.2); ALKALINE PHOSPHATASE 69 U/L (46-116); ALT/SGPT 19 U/L (7.0-40); AST/SGOT 12 U/L (<34); BILIRUBIN,DIRECT < 0.1 MG/DL (<0.4); BILIRUBIN,TOTAL 0.2 MG/DL (0.3-1.2); BLOOD UREA NITROGEN 22 MG/DL (9-23); CALCIUM LEVEL 8.7 MG/DL (8.5-10.1); CARBON DIOXIDE LEVEL 28 MMOL/L (20-31); CHLORIDE LEVEL 107 MMOL/L (98-107); CREATININE FOR GFR 0.62 MG/DL (0.55-1.30); GLOMERULAR FILTRATION RATE > 60.0 (>60); GLUCOSE, FASTING 82 MG/DL (60-100); POTASSIUM SERUM 3.9 MMOL/L (3.5-5.1); SODIUM LEVEL 142 MMOL/L (136-145); TOTAL PROTEIN 6.9 G/DL (5.7-8.2)
[2024-03-01 21:10] LABS: HCG, SERUM QUALITATIVE NEGATIVE (NEGATIVE)
[2024-03-01 21:12] LABS: PROCALCITONIN <0.04 ng/ml
[2024-03-01 23:40] VITALS: BP 93/52; TEMP 98.9; O2SAT 99
[2024-03-02] VITALS: BP 99/60; TEMP 98.5; O2SAT 99
[2024-03-02 00:45] VITALS: BP 93/56; TEMP 98.8; O2SAT 99
[2024-03-02] MEDS: diphenhydrAMINE 50MG/ML VIAL IV ONE (00:50)
[2024-03-02 01:39] VITALS: BP 105/58; TEMP 98.6; O2SAT 98
== END 2024-03-02 01:50 | disposition home or self-care (01) ==
LOC: M ED 18:53
DX: D50.9 Iron deficiency anemia, unspecified (principal); I38 Endocarditis, valve unspecified; G90.A Postural orthostatic tachycardia syndrome [POTS]; Q79.60 Ehlers-Danlos syndrome, unspecified; D80.3 Selective deficiency of immunoglobulin G [IgG] subclasses; Z95.9 Presence of cardiac and vascular implant and graft, unspecified; Z93.4 Other artificial openings of gastrointestinal tract status; Z93.1 Gastrostomy status; Z87.440 Personal history of urinary (tract) infections; Z79.899 Other long term (current) drug therapy; Z88.1 Allergy status to other antibiotic agents; Z88.8 Allergy status to other drugs, medicaments and biological substances
CPT/HCPCS: 36430; 71045; 80048; 80076; 81001; 83605; 83690; 84145; 84703; 85025; 86140; 86850; 86900; 86901; 86920; 87040; 87086; 87486; 87581; 87633; 87798; 93041; 96374; 99285; J1200; P9016

== ENCOUNTER → 2024-03-04 | Outpatient (REF) | payer BC ==
[2024-03-05 10:51] LABS: BLOOD UREA NITROGEN 18 MG/DL (9-23); CREATININE FOR GFR 0.51 MG/DL (0.55-1.30); GLOMERULAR FILTRATION RATE > 60.0 (>60); GLUCOSE, FASTING 65 MG/DL (60-100)
[2024-03-05 10:52] LABS: CALCIUM LEVEL 8.4 MG/DL (8.5-10.1); CARBON DIOXIDE LEVEL 25.6 MMOL/L (20-31); CHLORIDE LEVEL 107 MMOL/L (98-107); POTASSIUM SERUM 4.7 MMOL/L (3.5-5.1); SODIUM LEVEL 140 MMOL/L (136-145)
[2024-03-05 10:53] LABS: ALT/SGPT 28 U/L (7.0-40); AST/SGOT 19 U/L (<34); BILIRUBIN,TOTAL 0.4 MG/DL (0.3-1.2); TOTAL PROTEIN 6.5 G/DL (5.7-8.2); TRIGLYCERIDES LEVEL 42 MG/DL (<150)
[2024-03-05 10:56] LABS: ALBUMIN 3.1 G/DL (3.2-5.2); ALKALINE PHOSPHATASE 69 U/L (46-116); PHOSPHORUS LEVEL 3.6 MG/DL (2.5-4.9)
[2024-03-05 11:00] LABS: HEMATOCRIT 27.1 % (36.0-47.0); HEMOGLOBIN 8.3 g/dl (12.0-15.5); MEAN CORPUSCULAR HEMOGLOBIN 24.1 pg (27.0-33.0); MEAN CORPUSCULAR HGB CONC 30.6 g/dl (32.0-36.5); MEAN CORPUSCULAR VOLUME 78.8 fl (80.0-96.0); RED BLOOD COUNT 3.44 10^6/uL (4.00-5.40); WHITE BLOOD COUNT 3.4 10^3/uL (4.0-10.0)
[2024-03-05 11:01] LABS: BASO % 0.3 % (0.0-1.0); EOS % 2.4 % (0.0-3.0); LYMPH % 58.8 % (24.0-44.0); MONO % 13.4 % (2.0-8.0); NEUTROPHILS % 24.8 % (36.0-66.0); PLATELET COUNT, AUTOMATED 216 10^3/uL (150-450)
[2024-03-05 11:02] LABS: NEUTROPHILS # 0.8 10^3/uL (1.5-8.5)
[2024-03-05 11:03] LABS: EOS # 0.1 10^3/uL (0.0-0.5); MONO # 0.5 10^3/uL (0.0-0.8)
== END ==
LOC: M SHH 10:47
PROVIDERS: ATTEND Internal Medicine Gastroenterology
DX: K31.84 Gastroparesis (principal); Q79.60 Ehlers-Danlos syndrome, unspecified

== ENCOUNTER → 2024-03-11 | Outpatient (REF) | payer BC ==
[2024-03-11 15:54] LABS: BASO % 0.6 % (0.0-1.0); EOS # 0.1 10^3/uL (0.0-0.5); EOS % 2.3 % (0.0-3.0); HEMATOCRIT 29.5 % (36.0-47.0); HEMOGLOBIN 8.7 g/dl (12.0-15.5); LYMPH # 1.5 10^3/uL (1.5-5.0); MEAN CORPUSCULAR HEMOGLOBIN 23.5 pg (27.0-33.0); MEAN CORPUSCULAR HGB CONC 29.5 g/dl (32.0-36.5); MEAN CORPUSCULAR VOLUME 79.5 fl (80.0-96.0); MONO # 0.5 10^3/uL (0.0-0.8); MONO % 13.3 % (2.0-8.0); NEUTROPHILS # 1.5 10^3/uL (1.5-8.5); NEUTROPHILS % 42.8 % (36.0-66.0); PLATELET COUNT, AUTOMATED 205 10^3/uL (150-450); RED BLOOD COUNT 3.71 10^6/uL (4.00-5.40); WHITE BLOOD COUNT 3.5 10^3/uL (4.0-10.0)
[2024-03-11 16:18] LABS: C REACTIVE PROTEIN QUANTITATIV < 0.40 MG/DL (<1.0)
[2024-03-11 16:20] LABS: ALBUMIN 3.6 G/DL (3.2-5.2); ALKALINE PHOSPHATASE 72 U/L (46-116); ALT/SGPT 16 U/L (7.0-40); AST/SGOT 10 U/L (<34); BILIRUBIN,TOTAL 0.3 MG/DL (0.3-1.2); BLOOD UREA NITROGEN 21 MG/DL (9-23); CALCIUM LEVEL 9.4 MG/DL (8.5-10.1); CARBON DIOXIDE LEVEL 27 MMOL/L (20-31); CHLORIDE LEVEL 104 MMOL/L (98-107); CREATININE FOR GFR 0.55 MG/DL (0.55-1.30); GLOMERULAR FILTRATION RATE > 60.0 (>60); GLUCOSE, FASTING 55 MG/DL (60-100); MAGNESIUM LEVEL 2.1 MG/DL (1.8-2.4); PHOSPHORUS LEVEL 3.6 MG/DL (2.5-4.9); POTASSIUM SERUM 4.5 MMOL/L (3.5-5.1); SODIUM LEVEL 139 MMOL/L (136-145); TRIGLYCERIDES LEVEL 35 MG/DL (<150)
== END ==
LOC: M SHH 14:44
PROVIDERS: ATTEND Internal Medicine Gastroenterology
DX: K31.84 Gastroparesis (principal); Q79.60 Ehlers-Danlos syndrome, unspecified; E46 Unspecified protein-calorie malnutrition; Z79.899 Other long term (current) drug therapy

== ENCOUNTER → 2024-03-18 | Outpatient (REF) | payer OTHER, BC ==
[2024-03-18 14:33] LABS: HEMATOCRIT 26.6 % (36.0-47.0); MEAN CORPUSCULAR HEMOGLOBIN 23.6 pg (27.0-33.0); MEAN CORPUSCULAR HGB CONC 30.1 g/dl (32.0-36.5); MEAN CORPUSCULAR VOLUME 78.5 fl (80.0-96.0); PLATELET COUNT, AUTOMATED 207 10^3/uL (150-450); RED BLOOD COUNT 3.39 10^6/uL (4.00-5.40); WHITE BLOOD COUNT 2.9 10^3/uL (4.0-10.0)
[2024-03-18 14:51] LABS: ALKALINE PHOSPHATASE 62 U/L (46-116); ALT/SGPT 22 U/L (7.0-40); AST/SGOT 16 U/L (<34); BILIRUBIN,TOTAL 0.3 MG/DL (0.3-1.2); BLOOD UREA NITROGEN 20 MG/DL (9-23); CALCIUM LEVEL 8.4 MG/DL (8.5-10.1); CARBON DIOXIDE LEVEL 26 MMOL/L (20-31); CHLORIDE LEVEL 108 MMOL/L (98-107); CREATININE FOR GFR 0.56 MG/DL (0.55-1.30); GLOMERULAR FILTRATION RATE > 60.0 (>60); GLUCOSE, FASTING 69 MG/DL (60-100); MAGNESIUM LEVEL 1.9 MG/DL (1.8-2.4); POTASSIUM SERUM 4.4 MMOL/L (3.5-5.1); SODIUM LEVEL 141 MMOL/L (136-145); TOTAL PROTEIN 6.4 G/DL (5.7-8.2); TRIGLYCERIDES LEVEL 35 MG/DL (<150)
[2024-03-18 15:12] LABS: ANISOCYTOSIS 2+; BASOPHILS 1 % (0-1); EOSINOPHILS 3 % (0-3); HYPOCHROMASIA 1+; LYMPHOCYTES 45 % (16-44); MONOCYTES 15 % (0-5); NEUTROPHILS 36 % (28-66); PLATELET ESTIMATE NORMAL (NORMAL)
[2024-03-18 15:13] LABS: MICROCYTOSIS 1+; POLYCHROMASIA 1+
== END ==
LOC: M SHH 12:52
PROVIDERS: ATTEND Nurse Practitioner Family
DX: D64.9 Anemia, unspecified (principal)

== ENCOUNTER → 2024-03-25 | Outpatient (REF) | payer BC ==
[~2024-03-25] MED LIST changes: +VITA250T27 PO; -VITA250T4 PO
[2024-03-25 15:40] LABS: BASO % 0.3 % (0.0-1.0); EOS # 0.1 10^3/uL (0.0-0.5); EOS % 3.1 % (0.0-3.0); HEMATOCRIT 25.1 % (36.0-47.0); HEMOGLOBIN 7.5 g/dl (12.0-15.5); LYMPH # 1.4 10^3/uL (1.5-5.0); LYMPH % 48.1 % (24.0-44.0); MEAN CORPUSCULAR HEMOGLOBIN 23.3 pg (27.0-33.0); MEAN CORPUSCULAR HGB CONC 29.9 g/dl (32.0-36.5); MONO # 0.3 10^3/uL (0.0-0.8); MONO % 9.6 % (2.0-8.0); NEUTROPHILS # 1.1 10^3/uL (1.5-8.5); NEUTROPHILS % 38.9 % (36.0-66.0); PLATELET COUNT, AUTOMATED 218 10^3/uL (150-450); RED BLOOD COUNT 3.22 10^6/uL (4.00-5.40); WHITE BLOOD COUNT 2.9 10^3/uL (4.0-10.0)
[2024-03-25 16:18] LABS: ALBUMIN 3.1 G/DL (3.2-5.2); ALKALINE PHOSPHATASE 62 U/L (46-116); ALT/SGPT 16 U/L (7.0-40); AST/SGOT 13 U/L (<34); BILIRUBIN,TOTAL 0.3 MG/DL (0.3-1.2); BLOOD UREA NITROGEN 20 MG/DL (9-23); CALCIUM LEVEL 8.2 MG/DL (8.5-10.1); CARBON DIOXIDE LEVEL 23 MMOL/L (20-31); CHLORIDE LEVEL 108 MMOL/L (98-107); CREATININE FOR GFR 0.56 MG/DL (0.55-1.30); GLOMERULAR FILTRATION RATE > 60.0 (>60); GLUCOSE, FASTING 69 MG/DL (60-100); MAGNESIUM LEVEL 1.9 MG/DL (1.8-2.4); PHOSPHORUS LEVEL 3.8 MG/DL (2.5-4.9); POTASSIUM SERUM 4.1 MMOL/L (3.5-5.1); SODIUM LEVEL 139 MMOL/L (136-145); TOTAL PROTEIN 6.5 G/DL (5.7-8.2); TRIGLYCERIDES LEVEL 53 MG/DL (<150)
== END ==
LOC: M SHH 14:50
PROVIDERS: ATTEND Nurse Practitioner Family
DX: D64.9 Anemia, unspecified (principal)

== ENCOUNTER → 2024-04-01 | Outpatient (REF) | payer BC ==
[2024-04-01 14:01] LABS: BASO % 0.3 % (0.0-1.0); EOS # 0.1 10^3/uL (0.0-0.5); EOS % 3.6 % (0.0-3.0); HEMATOCRIT 26.1 % (36.0-47.0); HEMOGLOBIN 7.7 g/dl (12.0-15.5); LYMPH # 1.6 10^3/uL (1.5-5.0); LYMPH % 48.5 % (24.0-44.0); MEAN CORPUSCULAR HEMOGLOBIN 22.4 pg (27.0-33.0); MEAN CORPUSCULAR HGB CONC 29.5 g/dl (32.0-36.5); MEAN CORPUSCULAR VOLUME 75.9 fl (80.0-96.0); MONO # 0.4 10^3/uL (0.0-0.8); NEUTROPHILS # 1.2 10^3/uL (1.5-8.5); NEUTROPHILS % 34.6 % (36.0-66.0); PLATELET COUNT, AUTOMATED 253 10^3/uL (150-450); RED BLOOD COUNT 3.44 10^6/uL (4.00-5.40); WHITE BLOOD COUNT 3.4 10^3/uL (4.0-10.0)
[2024-04-01 14:24] LABS: ALBUMIN 3.5 G/DL (3.2-5.2); ALKALINE PHOSPHATASE 65 U/L (46-116); ALT/SGPT 17 U/L (7.0-40); AST/SGOT 12 U/L (<34); BILIRUBIN,TOTAL 0.5 MG/DL (0.3-1.2); BLOOD UREA NITROGEN 20 MG/DL (9-23); CALCIUM LEVEL 8.7 MG/DL (8.5-10.1); CARBON DIOXIDE LEVEL 26 MMOL/L (20-31); CHLORIDE LEVEL 106 MMOL/L (98-107); CREATININE FOR GFR 0.53 MG/DL (0.55-1.30); GLOMERULAR FILTRATION RATE > 60.0 (>60); GLUCOSE, FASTING 70 MG/DL (60-100); MAGNESIUM LEVEL 1.9 MG/DL (1.8-2.4); PHOSPHORUS LEVEL 3.2 MG/DL (2.5-4.9); POTASSIUM SERUM 4.5 MMOL/L (3.5-5.1); SODIUM LEVEL 138 MMOL/L (136-145); TOTAL PROTEIN 6.8 G/DL (5.7-8.2); TRIGLYCERIDES LEVEL 40 MG/DL (<150)
== END ==
LOC: M SHH 13:19
PROVIDERS: ATTEND Nurse Practitioner Family
DX: D64.9 Anemia, unspecified (principal)

== ENCOUNTER → 2024-04-08 | Outpatient (REF) | payer BC ==
[~2024-04-08] MED LIST changes: +PREG100C2 PO
[2024-04-08 16:01] LABS: HEMATOCRIT 24.1 % (36.0-47.0); HEMOGLOBIN 7.1 g/dl (12.0-15.5); MEAN CORPUSCULAR HEMOGLOBIN 22.7 pg (27.0-33.0); MEAN CORPUSCULAR HGB CONC 29.5 g/dl (32.0-36.5); PLATELET COUNT, AUTOMATED 179 10^3/uL (150-450); RED BLOOD COUNT 3.13 10^6/uL (4.00-5.40); WHITE BLOOD COUNT 2.8 10^3/uL (4.0-10.0)
[2024-04-08 16:25] LABS: ALBUMIN 3.5 G/DL (3.2-5.2); ALKALINE PHOSPHATASE 65 U/L (46-116); ALT/SGPT 16 U/L (7.0-40); AST/SGOT 11 U/L (<34); BILIRUBIN,TOTAL 0.4 MG/DL (0.3-1.2); BLOOD UREA NITROGEN 19 MG/DL (9-23); CALCIUM LEVEL 8.6 MG/DL (8.5-10.1); CARBON DIOXIDE LEVEL 25 MMOL/L (20-31); CHLORIDE LEVEL 106 MMOL/L (98-107); CREATININE FOR GFR 0.56 MG/DL (0.55-1.30); GLOMERULAR FILTRATION RATE > 60.0 (>60); GLUCOSE, FASTING 58 MG/DL (60-100); MAGNESIUM LEVEL 1.9 MG/DL (1.8-2.4); PHOSPHORUS LEVEL 3.4 MG/DL (2.5-4.9); POTASSIUM SERUM 4.3 MMOL/L (3.5-5.1); SODIUM LEVEL 138 MMOL/L (136-145); TOTAL PROTEIN 6.6 G/DL (5.7-8.2); TRIGLYCERIDES LEVEL 25 MG/DL (<150)
[2024-04-08 17:08] LABS: ATYPICAL LYMPH 1 % (0-5); EOSINOPHILS 1 % (0-3); HYPOCHROMASIA 2+; LYMPHOCYTES 67 % (16-44); MONOCYTES 5 % (0-5); NEUTROPHILS 26 % (28-66); PLATELET ESTIMATE NORMAL (NORMAL)
[2024-04-08 17:11] LABS: MICROCYTOSIS 1+
== END ==
LOC: M SHH 14:51
PROVIDERS: ATTEND Nurse Practitioner Family
DX: D64.9 Anemia, unspecified (principal)

== ENCOUNTER → 2024-04-16 | Outpatient (REF) | payer BC ==
[~2024-04-16] MED LIST changes: +ACET-716 PO
[2024-04-16 15:52] LABS: BASO % 0.4 % (0.0-1.0); EOS # 0.1 10^3/uL (0.0-0.5); EOS % 1.6 % (0.0-3.0); HEMATOCRIT 25.1 % (36.0-47.0); HEMOGLOBIN 7.5 g/dl (12.0-15.5); LYMPH # 1.3 10^3/uL (1.5-5.0); LYMPH % 28.6 % (24.0-44.0); MEAN CORPUSCULAR HEMOGLOBIN 22.1 pg (27.0-33.0); MEAN CORPUSCULAR HGB CONC 29.9 g/dl (32.0-36.5); MONO # 0.4 10^3/uL (0.0-0.8); MONO % 7.8 % (2.0-8.0); NEUTROPHILS # 2.8 10^3/uL (1.5-8.5); NEUTROPHILS % 61.4 % (36.0-66.0); PLATELET COUNT, AUTOMATED 241 10^3/uL (150-450); RED BLOOD COUNT 3.39 10^6/uL (4.00-5.40); WHITE BLOOD COUNT 4.5 10^3/uL (4.0-10.0)
[2024-04-16 16:06] LABS: ALBUMIN 3.7 G/DL (3.2-5.2); ALKALINE PHOSPHATASE 74 U/L (46-116); ALT/SGPT 18 U/L (7.0-40); AST/SGOT 12 U/L (<34); BILIRUBIN,TOTAL 0.6 MG/DL (0.3-1.2); BLOOD UREA NITROGEN 18 MG/DL (9-23); CALCIUM LEVEL 9.1 MG/DL (8.5-10.1); CARBON DIOXIDE LEVEL 28 MMOL/L (20-31); CHLORIDE LEVEL 103 MMOL/L (98-107); CREATININE FOR GFR 0.61 MG/DL (0.55-1.30); GLOMERULAR FILTRATION RATE > 60.0 (>60); GLUCOSE, FASTING 69 MG/DL (60-100); POTASSIUM SERUM 4.1 MMOL/L (3.5-5.1); SODIUM LEVEL 138 MMOL/L (136-145); TOTAL PROTEIN 7.2 G/DL (5.7-8.2); TRIGLYCERIDES LEVEL 41 MG/DL (<150)
[2024-04-16 16:09] LABS: TOTAL 25(OH) VITAMIN D 24.7 NG/ML (20.0-100.0)
== END ==
LOC: M SHH 14:24
PROVIDERS: ATTEND Nurse Practitioner Family
DX: K31.84 Gastroparesis (principal); D64.9 Anemia, unspecified; Q79.60 Ehlers-Danlos syndrome, unspecified; E46 Unspecified protein-calorie malnutrition; Z79.899 Other long term (current) drug therapy

== ENCOUNTER 2024-04-20 14:27 | Emergency (ER) | payer BC ==
[~2024-04-20] VITALS: Ht 172.7 cm; Wt 46.9 kg
[~2024-04-20 14:27] MED LIST changes: -ACET-716 PO; +ONDA-282; +ONDA-282 PO; -ONDA4TAB6; -ONDA4TAB6 PO
[2024-04-20] MEDS: ONDANSETRON 4MG 2ML VIAL IV ONE (16:00)
[2024-04-20] MEDS: MORPHINE 2 MG/ML 1ML VIAL IV ONE ×2 (16:00→19:45)
[2024-04-20] MEDS ORDERED: HOME MED LIST COMPLETE! XX SCH (16:10)
[2024-04-20 16:29] LABS: BASO % 0.3 % (0.0-1.0); EOS % 0.1 % (0.0-3.0); HEMATOCRIT 25.8 % (36.0-47.0); HEMOGLOBIN 7.9 g/dl (12.0-15.5); LYMPH % 14.3 % (24.0-44.0); MEAN CORPUSCULAR HEMOGLOBIN 22.2 pg (27.0-33.0); MEAN CORPUSCULAR HGB CONC 30.6 g/dl (32.0-36.5); MEAN CORPUSCULAR VOLUME 72.5 fl (80.0-96.0); MONO # 0.6 10^3/uL (0.0-0.8); MONO % 8.4 % (2.0-8.0); NEUTROPHILS # 5.5 10^3/uL (1.5-8.5); NEUTROPHILS % 76.8 % (36.0-66.0); PLATELET COUNT, AUTOMATED 264 10^3/uL (150-450); RED BLOOD COUNT 3.56 10^6/uL (4.00-5.40); WHITE BLOOD COUNT 7.2 10^3/uL (4.0-10.0)
[2024-04-20 16:47] LABS: ALBUMIN 3.9 G/DL (3.2-5.2); ALKALINE PHOSPHATASE 89 U/L (46-116); ALT/SGPT 14 U/L (7.0-40); AST/SGOT < 8 U/L (<34); BILIRUBIN,DIRECT 0.3 MG/DL (<0.4); BILIRUBIN,TOTAL 0.7 MG/DL (0.3-1.2); BLOOD UREA NITROGEN 21 MG/DL (9-23); CALCIUM LEVEL 9.9 MG/DL (8.5-10.1); CARBON DIOXIDE LEVEL 24 MMOL/L (20-31); CHLORIDE LEVEL 105 MMOL/L (98-107); CREATININE FOR GFR 0.71 MG/DL (0.55-1.30); GLOMERULAR FILTRATION RATE > 60.0 (>60); GLUCOSE, FASTING 83 MG/DL (60-100); POTASSIUM SERUM 3.8 MMOL/L (3.5-5.1); SODIUM LEVEL 138 MMOL/L (136-145); TOTAL PROTEIN 7.9 G/DL (5.7-8.2)
[2024-04-20] MEDS: NS 1,000 ML IV ONE ×2 (17:10→20:56)
[2024-04-20] MEDS ORDERED: SODIUM CHLORIDE 0.9% INJ 10 ML SYR IV PRN (18:20)
[2024-04-20] MEDS: SODIUM CHLORIDE 0.9% INJ 10 ML SYR IV SCH (18:50)
[2024-04-20 19:15] VITALS: TEMP 100.1
[2024-04-20 20:00] VITALS: BP 106/58
[2024-04-20 20:15] VITALS: O2SAT 100
[2024-04-20] MEDS ORDERED: ACET-716 PO (22:14)
[2024-04-20] MEDS: ACETAMINOPH W/CODEINE #3 TAB UD PO ONE (22:26)
== END 2024-04-20 22:37 | disposition home or self-care (01) ==
LOC: M ED 14:27
DX: L76.32 Postprocedural hematoma of skin and subcutaneous tissue following other procedure (principal); G90.A Postural orthostatic tachycardia syndrome [POTS]; K31.84 Gastroparesis; G25.0 Essential tremor; G43.909 Migraine, unspecified, not intractable, without status migrainosus; Z86.718 Personal history of other venous thrombosis and embolism; Z93.1 Gastrostomy status; Z93.4 Other artificial openings of gastrointestinal tract status; Z79.899 Other long term (current) drug therapy; Z88.1 Allergy status to other antibiotic agents; Z88.8 Allergy status to other drugs, medicaments and biological substances
CPT/HCPCS: 71045; 80048; 80076; 83605; 85025; 87040; 93005; 93971; 96361; 96374; 96375; 96376; 99284; J2405

== ENCOUNTER 2024-04-21 15:39 | Emergency (ER) | payer MEDICARE, BC ==
[~2024-04-21] VITALS: Ht 172.7 cm; Wt 49.1 kg
[~2024-04-21 15:39] MED LIST changes: +ACET-716 PO
[2024-04-21] MEDS ORDERED: SODIUM CHLORIDE 0.9% INJ 10 ML SYR IV PRN (17:50)
[2024-04-21] MEDS: SODIUM CHLORIDE 0.9% INJ 10 ML SYR IV PRN (17:51)
[2024-04-21 18:03] LABS: BASO % 0.3 % (0.0-1.0); EOS # 0.1 10^3/uL (0.0-0.5); EOS % 0.9 % (0.0-3.0); HEMATOCRIT 22.3 % (36.0-47.0); LYMPH # 1.3 10^3/uL (1.5-5.0); LYMPH % 18.7 % (24.0-44.0); MEAN CORPUSCULAR HEMOGLOBIN 21.6 pg (27.0-33.0); MEAN CORPUSCULAR HGB CONC 29.6 g/dl (32.0-36.5); MEAN CORPUSCULAR VOLUME 72.9 fl (80.0-96.0); MONO # 0.6 10^3/uL (0.0-0.8); MONO % 8.5 % (2.0-8.0); NEUTROPHILS # 4.8 10^3/uL (1.5-8.5); NEUTROPHILS % 71.3 % (36.0-66.0); PLATELET COUNT, AUTOMATED 216 10^3/uL (150-450); RED BLOOD COUNT 3.06 10^6/uL (4.00-5.40); WHITE BLOOD COUNT 6.7 10^3/uL (4.0-10.0)
[2024-04-21] MEDS: MORPHINE 2 MG/ML 1ML VIAL IV ONE (18:05)
[2024-04-21 18:22] LABS: HEMOGLOBIN 6.6 g/dl (12.0-15.5)
[2024-04-21 18:23] LABS: THYROID STIMULATING HORMONE 1.528 uIU/ML (0.55-4.78)
[2024-04-21 18:28] LABS: PROCALCITONIN 0.05 ng/ml
[2024-04-21 18:38] LABS: ALBUMIN 3.2 G/DL (3.2-5.2); ALKALINE PHOSPHATASE 69 U/L (46-116); ALT/SGPT 11 U/L (7.0-40); AST/SGOT < 8 U/L (<34); BILIRUBIN,DIRECT 0.2 MG/DL (<0.4); BILIRUBIN,TOTAL 0.5 MG/DL (0.3-1.2); BLOOD UREA NITROGEN 13 MG/DL (9-23); CALCIUM LEVEL 8.5 MG/DL (8.5-10.1); CARBON DIOXIDE LEVEL 23 MMOL/L (20-31); CHLORIDE LEVEL 106 MMOL/L (98-107); CREATININE FOR GFR 0.51 MG/DL (0.55-1.30); GLOMERULAR FILTRATION RATE > 60.0 (>60); GLUCOSE, FASTING 86 MG/DL (60-100); POTASSIUM SERUM 4.2 MMOL/L (3.5-5.1); SODIUM LEVEL 135 MMOL/L (136-145); TOTAL PROTEIN 6.5 G/DL (5.7-8.2)
[2024-04-21] MEDS: NS 500 ML IV ONE (19:46)
[2024-04-21] MEDS: CEFEPIME HCL 1 GM in D5W MINI-BAG PLUS 50 ML IV ONE (19:49)
[2024-04-21] MEDS: MORPHINE 2 MG/ML 1ML VIAL IV PRN (20:06)
[2024-04-21] MEDS: ACETAMINOPHEN TAB 650MG DOSE (2X325MG) PO ONE (20:07)
[2024-04-21] MEDS: LINEZOLID 600 MG in IV 1 EA IV ONE (21:02)
[2024-04-21 23:56] VITALS: BP 91/64; TEMP 98.8; O2SAT 98
[2024-04-22] MEDS ORDERED: CEFEPIME HCL 1 GM in D5W MINI-BAG PLUS 50 ML IV SCH
[2024-04-22 00:21] VITALS: BP 110/66; TEMP 98.5; O2SAT 98
[2024-04-22 00:30] VITALS: BP 94/64; TEMP 98.4; O2SAT 98
[2024-04-22] MEDS ORDERED: BACITRACIN OINTMENT 30GM TUBE TOP PRN (01:35)
[2024-04-22] MEDS: LR 1,000 ML IV SCH (02:42)
[2024-04-22 07:12] LABS: HEMATOCRIT 24.9 % (36.0-47.0); HEMOGLOBIN 7.8 g/dl (12.0-15.5); MEAN CORPUSCULAR HEMOGLOBIN 23.2 pg (27.0-33.0); MEAN CORPUSCULAR HGB CONC 31.3 g/dl (32.0-36.5); MEAN CORPUSCULAR VOLUME 74.1 fl (80.0-96.0); PLATELET COUNT, AUTOMATED 200 10^3/uL (150-450); RED BLOOD COUNT 3.36 10^6/uL (4.00-5.40); WHITE BLOOD COUNT 6.4 10^3/uL (4.0-10.0)
[2024-04-22] MEDS: MIDODRINE 5 MG TAB PO SCH ×2 (07:27→16:59)
[2024-04-22] MEDS: CEFEPIME HCL 1 GM in D5W MINI-BAG PLUS 50 ML IV SCH (08:05)
[2024-04-22] MEDS: BISACODYL 10MG SUPP PR SCH (09:00)
[2024-04-22] MEDS: SODIUM CHLORIDE 0.9% INJ 10 ML SYR IV SCH (09:00)
[2024-04-22] MEDS ORDERED: HOME MED LIST COMPLETE! XX SCH (09:10)
[2024-04-22] MEDS ORDERED: LEVALBUTEROL HFA 45MCG/ACT 15GM INHALER INH PRN (10:50)
[2024-04-22] MEDS ORDERED: FLEET ENEMA PR PRN (10:50)
[2024-04-22] MEDS ORDERED: SUMAtriptan SUCCINATE 25 MG TAB PO PRN (10:50)
[2024-04-22] MEDS ORDERED: LEVALBUTEROL 1.25MG 0.5ML CONCENTRATE NEB INH PRN (10:50)
[2024-04-22] MEDS ORDERED: PREGABALIN 100 MG CAP (LYRICA) PO SCH ×2 (11:05→14:00)
[2024-04-22] MEDS: LINEZOLID 600 MG in IV 1 EA IV SCH (11:27)
[2024-04-22] MEDS: ADVAIR HFA 230/21MCG INHALER INH SCH (13:47)
[2024-04-22] MEDS: PREGABALIN 75 MG CAP(LYRICA) PO SCH (16:59)
[2024-04-22] MEDS: ACETAMINOPHEN TAB 650MG DOSE (2X325MG) PO PRN (16:59)
[2024-04-22] MEDS: ONDANSETRON 4MG ORAL DISINTEGRATING TAB PO PRN (16:59)
[2024-04-22] MEDS: HEPARIN SOD (PORCINE) 5000UNITS/ML 1ML VIAL/SYRINGE SC SCH (17:01)
[2024-04-22] MEDS: AMINO AC/ELECTROLYTE/DEX/CALC 1,000 ML IV SCH (19:43)
[2024-04-22] MEDS: FAT EMULSION IV 250 ML IV ONE (19:43)
[2024-04-22] MEDS: INSULIN LISPRO (NovoLOG) PER UNIT SC SCH (19:54)
[2024-04-22] MEDS ORDERED: PRIMIDONE 50MG TAB PO SCH (21:00)
[2024-04-22] MEDS ORDERED: FAMOTIDINE 20 MG TAB PO SCH (21:00)
[2024-04-22] MEDS ORDERED: PREG150C2 PO (22:29)
[2024-04-23 13:36] LABS: EOS % 0.7 % (0.0-3.0); HEMATOCRIT 26.8 % (36.0-47.0); HEMOGLOBIN 8.1 g/dl (12.0-15.5); LYMPH # 0.5 10^3/uL (1.5-5.0); LYMPH % 12.4 % (24.0-44.0); MEAN CORPUSCULAR HEMOGLOBIN 22.6 pg (27.0-33.0); MEAN CORPUSCULAR HGB CONC 30.2 g/dl (32.0-36.5); MEAN CORPUSCULAR VOLUME 74.9 fl (80.0-96.0); MONO # 0.4 10^3/uL (0.0-0.8); MONO % 9.1 % (2.0-8.0); NEUTROPHILS # 3.3 10^3/uL (1.5-8.5); NEUTROPHILS % 77.6 % (36.0-66.0); PLATELET COUNT, AUTOMATED 177 10^3/uL (150-450); RED BLOOD COUNT 3.58 10^6/uL (4.00-5.40); WHITE BLOOD COUNT 4.3 10^3/uL (4.0-10.0)
[2024-04-23 14:00] LABS: BLOOD UREA NITROGEN 7 MG/DL (9-23); CALCIUM LEVEL 8.6 MG/DL (8.5-10.1); CARBON DIOXIDE LEVEL 24 MMOL/L (20-31); CHLORIDE LEVEL 104 MMOL/L (98-107); CREATININE FOR GFR 0.52 MG/DL (0.55-1.30); GLOMERULAR FILTRATION RATE > 60.0 (>60); GLUCOSE, FASTING 124 MG/DL (60-100); PHOSPHORUS LEVEL 2.7 MG/DL (2.5-4.9); POTASSIUM SERUM 3.9 MMOL/L (3.5-5.1); SODIUM LEVEL 135 MMOL/L (136-145)
[2024-04-23] MEDS: INSULIN LISPRO (NovoLOG) PER UNIT SC SCH (19:39)
[2024-04-23] MEDS: FAT EMULSION IV 250 ML IV ONE (19:48)
[2024-04-24] MEDS: MIDODRINE 5 MG TAB PO SCH (08:07)
[2024-04-24 08:09] LABS: BASO % 0.3 % (0.0-1.0); EOS # 0.2 10^3/uL (0.0-0.5); EOS % 5.2 % (0.0-3.0); HEMATOCRIT 26.7 % (36.0-47.0); HEMOGLOBIN 8.3 g/dl (12.0-15.5); LYMPH # 0.8 10^3/uL (1.5-5.0); LYMPH % 19.8 % (24.0-44.0); MEAN CORPUSCULAR HEMOGLOBIN 23.2 pg (27.0-33.0); MEAN CORPUSCULAR HGB CONC 31.1 g/dl (32.0-36.5); MEAN CORPUSCULAR VOLUME 74.6 fl (80.0-96.0); MONO # 0.3 10^3/uL (0.0-0.8); MONO % 8.6 % (2.0-8.0); NEUTROPHILS # 2.5 10^3/uL (1.5-8.5); NEUTROPHILS % 65.8 % (36.0-66.0); PLATELET COUNT, AUTOMATED 188 10^3/uL (150-450); RED BLOOD COUNT 3.58 10^6/uL (4.00-5.40); WHITE BLOOD COUNT 3.8 10^3/uL (4.0-10.0)
[2024-04-24 08:41] LABS: ALBUMIN 2.9 G/DL (3.2-5.2); BLOOD UREA NITROGEN 6 MG/DL (9-23); CALCIUM LEVEL 8.4 MG/DL (8.5-10.1); CARBON DIOXIDE LEVEL 26 MMOL/L (20-31); CHLORIDE LEVEL 104 MMOL/L (98-107); CREATININE FOR GFR 0.57 MG/DL (0.55-1.30); GLOMERULAR FILTRATION RATE > 60.0 (>60); GLUCOSE, FASTING 80 MG/DL (60-100); PHOSPHORUS LEVEL 3.6 MG/DL (2.5-4.9); POTASSIUM SERUM 3.9 MMOL/L (3.5-5.1); SODIUM LEVEL 135 MMOL/L (136-145)
[2024-04-24] MEDS: INSULIN LISPRO (NovoLOG) PER UNIT SC SCH (19:16)
[2024-04-24] MEDS: FAT EMULSION IV 250 ML IV ONE (20:08)
[2024-04-25] MEDS: ceFAZolin SOD 2 GM in IV 1 EA IV SCH (12:00)
[2024-04-25] MEDS: FAT EMULSION IV 250 ML IV ONE (17:55)
[2024-04-25] MEDS: INSULIN LISPRO (NovoLOG) PER UNIT SC SCH (18:00)
[2024-04-26 08:08] LABS: BASO % 0.6 % (0.0-1.0); EOS # 0.1 10^3/uL (0.0-0.5); EOS % 3.9 % (0.0-3.0); HEMATOCRIT 30.2 % (36.0-47.0); HEMOGLOBIN 9.2 g/dl (12.0-15.5); LYMPH # 1.5 10^3/uL (1.5-5.0); LYMPH % 40.6 % (24.0-44.0); MEAN CORPUSCULAR HGB CONC 30.5 g/dl (32.0-36.5); MEAN CORPUSCULAR VOLUME 75.5 fl (80.0-96.0); MONO # 0.3 10^3/uL (0.0-0.8); NEUTROPHILS # 1.6 10^3/uL (1.5-8.5); NEUTROPHILS % 45.6 % (36.0-66.0); PLATELET COUNT, AUTOMATED 263 10^3/uL (150-450); WHITE BLOOD COUNT 3.6 10^3/uL (4.0-10.0)
[2024-04-26 08:28] LABS: ALBUMIN 3.6 G/DL (3.2-5.2); BLOOD UREA NITROGEN 8 MG/DL (9-23); CALCIUM LEVEL 9.4 MG/DL (8.5-10.1); CARBON DIOXIDE LEVEL 26 MMOL/L (20-31); CHLORIDE LEVEL 105 MMOL/L (98-107); CREATININE FOR GFR 0.49 MG/DL (0.55-1.30); GLOMERULAR FILTRATION RATE > 60.0 (>60); GLUCOSE, FASTING 89 MG/DL (60-100); PHOSPHORUS LEVEL 4.9 MG/DL (2.5-4.9); POTASSIUM SERUM 4.1 MMOL/L (3.5-5.1); SODIUM LEVEL 138 MMOL/L (136-145)
[2024-04-26] MEDS: FAT EMULSION IV 250 ML IV ONE (17:46)
[2024-04-26] MEDS: INSULIN LISPRO (NovoLOG) PER UNIT SC SCH (17:57)
[2024-04-27 10:11] LABS: BASO % 0.2 % (0.0-1.0); EOS # 0.1 10^3/uL (0.0-0.5); EOS % 2.2 % (0.0-3.0); HEMATOCRIT 27.6 % (36.0-47.0); HEMOGLOBIN 8.5 g/dl (12.0-15.5); LYMPH # 1.5 10^3/uL (1.5-5.0); LYMPH % 38.1 % (24.0-44.0); MEAN CORPUSCULAR HGB CONC 30.8 g/dl (32.0-36.5); MEAN CORPUSCULAR VOLUME 74.8 fl (80.0-96.0); MONO # 0.3 10^3/uL (0.0-0.8); MONO % 7.7 % (2.0-8.0); NEUTROPHILS # 2.1 10^3/uL (1.5-8.5); NEUTROPHILS % 51.6 % (36.0-66.0); PLATELET COUNT, AUTOMATED 253 10^3/uL (150-450); RED BLOOD COUNT 3.69 10^6/uL (4.00-5.40)
[2024-04-27 10:47] LABS: ALBUMIN 3.3 G/DL (3.2-5.2); BLOOD UREA NITROGEN 9 MG/DL (9-23); CALCIUM LEVEL 9.2 MG/DL (8.5-10.1); CARBON DIOXIDE LEVEL 25 MMOL/L (20-31); CHLORIDE LEVEL 106 MMOL/L (98-107); CREATININE FOR GFR 0.48 MG/DL (0.55-1.30); GLOMERULAR FILTRATION RATE > 60.0 (>60); GLUCOSE, FASTING 74 MG/DL (60-100); PHOSPHORUS LEVEL 3.7 MG/DL (2.5-4.9); SODIUM LEVEL 139 MMOL/L (136-145)
[2024-04-27] MEDS: FAT EMULSION IV 250 ML IV ONE (17:41)
[2024-04-27] MEDS: INSULIN LISPRO (NovoLOG) PER UNIT SC SCH (20:26)
[2024-04-28 10:46] LABS: BASO % 0.5 % (0.0-1.0); EOS # 0.1 10^3/uL (0.0-0.5); EOS % 2.1 % (0.0-3.0); HEMATOCRIT 28.5 % (36.0-47.0); HEMOGLOBIN 8.6 g/dl (12.0-15.5); LYMPH # 1.8 10^3/uL (1.5-5.0); LYMPH % 47.2 % (24.0-44.0); MEAN CORPUSCULAR HEMOGLOBIN 22.8 pg (27.0-33.0); MEAN CORPUSCULAR HGB CONC 30.2 g/dl (32.0-36.5); MEAN CORPUSCULAR VOLUME 75.4 fl (80.0-96.0); MONO # 0.4 10^3/uL (0.0-0.8); MONO % 9.2 % (2.0-8.0); NEUTROPHILS # 1.5 10^3/uL (1.5-8.5); NEUTROPHILS % 40.7 % (36.0-66.0); PLATELET COUNT, AUTOMATED 269 10^3/uL (150-450); RED BLOOD COUNT 3.78 10^6/uL (4.00-5.40); WHITE BLOOD COUNT 3.8 10^3/uL (4.0-10.0)
[2024-04-28 11:12] LABS: ALBUMIN 3.3 G/DL (3.2-5.2); BLOOD UREA NITROGEN 9 MG/DL (9-23); CALCIUM LEVEL 9.2 MG/DL (8.5-10.1); CARBON DIOXIDE LEVEL 26 MMOL/L (20-31); CHLORIDE LEVEL 108 MMOL/L (98-107); GLOMERULAR FILTRATION RATE > 60.0 (>60); GLUCOSE, FASTING 95 MG/DL (60-100); PHOSPHORUS LEVEL 3.6 MG/DL (2.5-4.9); POTASSIUM SERUM 4.3 MMOL/L (3.5-5.1); SODIUM LEVEL 139 MMOL/L (136-145)
[2024-04-28 17:46] VITALS: BP 120/64; TEMP 97.8; O2SAT 100
== END 2024-04-28 17:50 | disposition short-term general hospital (02) ==
LOC: M ED 15:39
DX: T80.212A Local infection due to central venous catheter, initial encounter (principal); D61.818 Other pancytopenia; K31.84 Gastroparesis; G90.A Postural orthostatic tachycardia syndrome [POTS]; Q79.60 Ehlers-Danlos syndrome, unspecified; I33.9 Acute and subacute endocarditis, unspecified; Z93.1 Gastrostomy status; Z86.14 Personal history of Methicillin resistant Staphylococcus aureus infection; Z86.19 Personal history of other infectious and parasitic diseases; Z87.440 Personal history of urinary (tract) infections; K90.9 Intestinal malabsorption, unspecified; J45.909 Unspecified asthma, uncomplicated; G93.32 Myalgic encephalomyelitis/chronic fatigue syndrome; M25.50 Pain in unspecified joint; G25.0 Essential tremor; R10.9 Unspecified abdominal pain; M99.05 Segmental and somatic dysfunction of pelvic region; J38.3 Other diseases of vocal cords; Z79.899 Other long term (current) drug therapy; Z88.1 Allergy status to other antibiotic agents; Z88.8 Allergy status to other drugs, medicaments and biological substances
CPT/HCPCS: 36415; 36430; 71045; 80048; 80069; 80076; 81001; 83605; 83735; 84145; 84443; 85025; 85027; 86850; 86900; 86901; 86920; 87040; 87070; 87077; 87086; 87186; 87205; 87486; 87581; 87633; 87798; 93005; 93041; 94640; 94760; 96365; 96366; 96367; 96372; 96375; 96376; 99285; J0690; J0692; J1815; J2020; P9016

== ENCOUNTER → 2024-05-10 | Outpatient (CLI) | payer BC, MEDICARE ==
[~2024-05-10] MED LIST changes: +PREG150C2 PO
[2024-05-10 12:30] LABS: BASO % 0.5 % (0.0-1.0); EOS % 0.7 % (0.0-3.0); HEMATOCRIT 28.1 % (36.0-47.0); HEMOGLOBIN 8.6 g/dl (12.0-15.5); LYMPH # 0.6 10^3/uL (1.5-5.0); LYMPH % 14.6 % (24.0-44.0); MEAN CORPUSCULAR HEMOGLOBIN 23.5 pg (27.0-33.0); MEAN CORPUSCULAR HGB CONC 30.6 g/dl (32.0-36.5); MEAN CORPUSCULAR VOLUME 76.8 fl (80.0-96.0); MONO # 0.1 10^3/uL (0.0-0.8); MONO % 2.7 % (2.0-8.0); NEUTROPHILS # 3.6 10^3/uL (1.5-8.5); NEUTROPHILS % 81.3 % (36.0-66.0); PLATELET COUNT, AUTOMATED 378 10^3/uL (150-450); RED BLOOD COUNT 3.66 10^6/uL (4.00-5.40); WHITE BLOOD COUNT 4.4 10^3/uL (4.0-10.0)
[2024-05-10 13:06] LABS: ALBUMIN 3.5 G/DL (3.2-5.2); ALKALINE PHOSPHATASE 72 U/L (46-116); ALT/SGPT 38 U/L (7.0-40); AST/SGOT 19 U/L (<34); BILIRUBIN,TOTAL < 0.2 MG/DL (0.3-1.2); BLOOD UREA NITROGEN 23 MG/DL (9-23); CALCIUM LEVEL 9.4 MG/DL (8.5-10.1); CARBON DIOXIDE LEVEL 28 MMOL/L (20-31); CHLORIDE LEVEL 107 MMOL/L (98-107); GLOMERULAR FILTRATION RATE > 60.0 (>60); GLUCOSE, FASTING 127 MG/DL (60-100); MAGNESIUM LEVEL 2.2 MG/DL (1.8-2.4); PHOSPHORUS LEVEL 1.8 MG/DL (2.5-4.9); SODIUM LEVEL 140 MMOL/L (136-145); TOTAL PROTEIN 7.1 G/DL (5.7-8.2); TRIGLYCERIDES LEVEL 84 MG/DL (<150)
== END ==
LOC: M LAB 11:24
PROVIDERS: ATTEND Nurse Practitioner Family
DX: D64.9 Anemia, unspecified (principal)

== ENCOUNTER → 2024-05-13 | Outpatient (REF) | payer BC ==
[2024-05-13 13:46] LABS: BASO % 0.6 % (0.0-1.0); EOS # 0.1 10^3/uL (0.0-0.5); EOS % 1.5 % (0.0-3.0); HEMOGLOBIN 8.7 g/dl (12.0-15.5); LYMPH # 1.5 10^3/uL (1.5-5.0); LYMPH % 28.6 % (24.0-44.0); MEAN CORPUSCULAR VOLUME 76.7 fl (80.0-96.0); MONO # 0.6 10^3/uL (0.0-0.8); MONO % 11.1 % (2.0-8.0); PLATELET COUNT, AUTOMATED 343 10^3/uL (150-450); RED BLOOD COUNT 3.78 10^6/uL (4.00-5.40); WHITE BLOOD COUNT 5.2 10^3/uL (4.0-10.0)
[2024-05-13 14:08] LABS: BLOOD UREA NITROGEN 23 MG/DL (9-23); CALCIUM LEVEL 8.9 MG/DL (8.5-10.1); CARBON DIOXIDE LEVEL 29 MMOL/L (20-31); CHLORIDE LEVEL 106 MMOL/L (98-107); CPK CREATINE PHOSPHOKINASE 23 U/L (34-145); CREATININE FOR GFR 0.53 MG/DL (0.55-1.30); GLOMERULAR FILTRATION RATE > 60.0 (>60); GLUCOSE, FASTING 60 MG/DL (60-100); POTASSIUM SERUM 4.5 MMOL/L (3.5-5.1); SODIUM LEVEL 142 MMOL/L (136-145)
== END ==
LOC: M SHH 13:21
PROVIDERS: ATTEND Internal Medicine Infectious Disease
DX: K31.84 Gastroparesis (principal); Q79.60 Ehlers-Danlos syndrome, unspecified; E46 Unspecified protein-calorie malnutrition; Z79.899 Other long term (current) drug therapy

== ENCOUNTER → 2024-05-20 | Outpatient (REF) | payer BC ==
[2024-05-20 16:13] LABS: C REACTIVE PROTEIN QUANTITATIV < 0.40 MG/DL (<1.0)
[2024-05-20 16:14] LABS: IMMUNOGLOBULIN A 140.7 MG/DL (40-350); IMMUNOGLOBULIN G 875 MG/DL (650-1600)
[2024-05-20 19:21] LABS: ALBUMIN 3.9 G/DL (3.2-5.2); ALKALINE PHOSPHATASE 69 U/L (46-116); ALT/SGPT 48 U/L (7.0-40); AST/SGOT 50 U/L (<34); BILIRUBIN,TOTAL 0.3 MG/DL (0.3-1.2); BLOOD UREA NITROGEN 24 MG/DL (9-23); CALCIUM LEVEL 9.4 MG/DL (8.5-10.1); CARBON DIOXIDE LEVEL 31 MMOL/L (20-31); CHLORIDE LEVEL 101 MMOL/L (98-107); CREATININE FOR GFR 0.61 MG/DL (0.55-1.30); GLOMERULAR FILTRATION RATE > 60.0 (>60); GLUCOSE, FASTING 37 MG/DL (60-100); PHOSPHORUS LEVEL 3.1 MG/DL (2.5-4.9); POTASSIUM SERUM 4.8 MMOL/L (3.5-5.1); SODIUM LEVEL 139 MMOL/L (136-145); TOTAL PROTEIN 7.4 G/DL (5.7-8.2)
== END ==
LOC: M SHH 14:47
PROVIDERS: ATTEND Physician Assistant
DX: G25.0 Essential tremor (principal); K90.9 Intestinal malabsorption, unspecified

== ENCOUNTER → 2024-05-20 | Outpatient (REF) | payer BC ==
[2024-05-20 15:54] LABS: BASO % 0.5 % (0.0-1.0); EOS # 0.1 10^3/uL (0.0-0.5); EOS % 2.7 % (0.0-3.0); HEMATOCRIT 33.7 % (36.0-47.0); HEMOGLOBIN 9.7 g/dl (12.0-15.5); LYMPH % 48.9 % (24.0-44.0); MEAN CORPUSCULAR HEMOGLOBIN 23.7 pg (27.0-33.0); MEAN CORPUSCULAR HGB CONC 28.8 g/dl (32.0-36.5); MEAN CORPUSCULAR VOLUME 82.2 fl (80.0-96.0); MONO # 0.4 10^3/uL (0.0-0.8); MONO % 10.1 % (2.0-8.0); NEUTROPHILS # 1.5 10^3/uL (1.5-8.5); NEUTROPHILS % 37.6 % (36.0-66.0); WHITE BLOOD COUNT 4.1 10^3/uL (4.0-10.0)
[2024-05-20 16:16] LABS: BLOOD UREA NITROGEN 24 MG/DL (9-23); CALCIUM LEVEL 9.2 MG/DL (8.5-10.1); CARBON DIOXIDE LEVEL 31 MMOL/L (20-31); CHLORIDE LEVEL 103 MMOL/L (98-107); CREATININE FOR GFR 0.59 MG/DL (0.55-1.30); GLOMERULAR FILTRATION RATE > 60.0 (>60); GLUCOSE, FASTING 45 MG/DL (60-100); POTASSIUM SERUM 3.8 MMOL/L (3.5-5.1); SODIUM LEVEL 142 MMOL/L (136-145)
[2024-05-20 16:24] LABS: CPK CREATINE PHOSPHOKINASE 20 U/L (34-145)
[2024-05-20 17:23] LABS: PLATELET COUNT, AUTOMATED 173 10^3/uL (150-450)
== END ==
LOC: M SHH 14:45
PROVIDERS: ATTEND Internal Medicine Infectious Disease
DX: K31.84 Gastroparesis (principal); Q79.60 Ehlers-Danlos syndrome, unspecified

== ENCOUNTER → 2024-05-27 | Outpatient (REF) | payer BC ==
[2024-05-27 14:31] LABS: BASO % 0.3 % (0.0-1.0); EOS # 0.1 10^3/uL (0.0-0.5); EOS % 3.1 % (0.0-3.0); HEMATOCRIT 35.7 % (36.0-47.0); HEMOGLOBIN 10.7 g/dl (12.0-15.5); LYMPH % 51.5 % (24.0-44.0); MEAN CORPUSCULAR VOLUME 83.4 fl (80.0-96.0); MONO # 0.4 10^3/uL (0.0-0.8); MONO % 9.2 % (2.0-8.0); NEUTROPHILS # 1.4 10^3/uL (1.5-8.5); NEUTROPHILS % 35.6 % (36.0-66.0); RED BLOOD COUNT 4.28 10^6/uL (4.00-5.40); WHITE BLOOD COUNT 3.9 10^3/uL (4.0-10.0)
[2024-05-27 14:50] LABS: BLOOD UREA NITROGEN 23 MG/DL (9-23); CALCIUM LEVEL 8.7 MG/DL (8.5-10.1); CARBON DIOXIDE LEVEL 31 MMOL/L (20-31); CHLORIDE LEVEL 101 MMOL/L (98-107); CPK CREATINE PHOSPHOKINASE 15 U/L (34-145); CREATININE FOR GFR 0.56 MG/DL (0.55-1.30); GLOMERULAR FILTRATION RATE > 60.0 (>60); GLUCOSE, FASTING 59 MG/DL (60-100); POTASSIUM SERUM 3.4 MMOL/L (3.5-5.1); SODIUM LEVEL 137 MMOL/L (136-145)
[2024-05-27 15:23] LABS: PLATELET COUNT, AUTOMATED 144 10^3/uL (150-450)
[2024-05-28 12:25] LABS: ALBUMIN 3.7 G/DL (3.2-5.2); ALKALINE PHOSPHATASE 79 U/L (46-116); ALT/SGPT 28 U/L (7.0-40); AST/SGOT 13 U/L (<34); BILIRUBIN,TOTAL 0.3 MG/DL (0.3-1.2); PHOSPHORUS LEVEL 2.7 MG/DL (2.5-4.9); TOTAL PROTEIN 6.9 G/DL (5.7-8.2); TRIGLYCERIDES LEVEL 70 MG/DL (<150)
== END ==
LOC: M LAB REF 13:56
PROVIDERS: ATTEND Internal Medicine Infectious Disease
DX: K31.84 Gastroparesis (principal); Q79.60 Ehlers-Danlos syndrome, unspecified; E46 Unspecified protein-calorie malnutrition; Z79.899 Other long term (current) drug therapy

== ENCOUNTER → 2024-06-03 | Outpatient (REF) | payer BC ==
[2024-06-03 15:32] LABS: BASO % 0.3 % (0.0-1.0); EOS # 0.1 10^3/uL (0.0-0.5); EOS % 2.5 % (0.0-3.0); HEMATOCRIT 35.7 % (36.0-47.0); HEMOGLOBIN 11.1 g/dl (12.0-15.5); LYMPH # 2.2 10^3/uL (1.5-5.0); LYMPH % 59.9 % (24.0-44.0); MEAN CORPUSCULAR HEMOGLOBIN 26.2 pg (27.0-33.0); MEAN CORPUSCULAR HGB CONC 31.1 g/dl (32.0-36.5); MEAN CORPUSCULAR VOLUME 84.4 fl (80.0-96.0); MONO # 0.3 10^3/uL (0.0-0.8); NEUTROPHILS % 28.3 % (36.0-66.0); PLATELET COUNT, AUTOMATED 166 10^3/uL (150-450); RED BLOOD COUNT 4.23 10^6/uL (4.00-5.40); WHITE BLOOD COUNT 3.7 10^3/uL (4.0-10.0)
[2024-06-03 15:54] LABS: ALBUMIN 3.5 G/DL (3.2-5.2); ALKALINE PHOSPHATASE 78 U/L (46-116); ALT/SGPT 22 U/L (7.0-40); AST/SGOT 10 U/L (<34); BILIRUBIN,TOTAL 0.5 MG/DL (0.3-1.2); BLOOD UREA NITROGEN 22 MG/DL (9-23); CALCIUM LEVEL 9.2 MG/DL (8.5-10.1); CARBON DIOXIDE LEVEL 32 MMOL/L (20-31); CHLORIDE LEVEL 103 MMOL/L (98-107); CREATININE FOR GFR 0.56 MG/DL (0.55-1.30); GLOMERULAR FILTRATION RATE > 60.0 (>60); GLUCOSE, FASTING 48 MG/DL (60-100); PHOSPHORUS LEVEL 2.2 MG/DL (2.5-4.9); POTASSIUM SERUM 3.5 MMOL/L (3.5-5.1); SODIUM LEVEL 138 MMOL/L (136-145); TOTAL PROTEIN 6.8 G/DL (5.7-8.2); TRIGLYCERIDES LEVEL 43 MG/DL (<150)
== END ==
LOC: M SHH 14:40
PROVIDERS: ATTEND Internal Medicine Gastroenterology
DX: Z79.899 Other long term (current) drug therapy (principal); E46 Unspecified protein-calorie malnutrition; K31.84 Gastroparesis; Q79.60 Ehlers-Danlos syndrome, unspecified

== ENCOUNTER → 2024-06-10 | Outpatient (REF) | payer BC ==
[2024-06-10 16:33] LABS: BASO % 0.3 % (0.0-1.0); EOS # 0.1 10^3/uL (0.0-0.5); EOS % 1.5 % (0.0-3.0); HEMATOCRIT 35.7 % (36.0-47.0); LYMPH # 1.5 10^3/uL (1.5-5.0); LYMPH % 45.8 % (24.0-44.0); MEAN CORPUSCULAR HEMOGLOBIN 26.3 pg (27.0-33.0); MEAN CORPUSCULAR HGB CONC 30.8 g/dl (32.0-36.5); MEAN CORPUSCULAR VOLUME 85.2 fl (80.0-96.0); MONO # 0.3 10^3/uL (0.0-0.8); MONO % 10.5 % (2.0-8.0); NEUTROPHILS # 1.4 10^3/uL (1.5-8.5); NEUTROPHILS % 41.9 % (36.0-66.0); PLATELET COUNT, AUTOMATED 145 10^3/uL (150-450); RED BLOOD COUNT 4.19 10^6/uL (4.00-5.40); WHITE BLOOD COUNT 3.3 10^3/uL (4.0-10.0)
[2024-06-10 16:39] LABS: ALBUMIN 3.4 G/DL (3.2-5.2); ALKALINE PHOSPHATASE 79 U/L (46-116); ALT/SGPT 17 U/L (7.0-40); AST/SGOT 12 U/L (<34); BILIRUBIN,TOTAL 0.5 MG/DL (0.3-1.2); BLOOD UREA NITROGEN 18 MG/DL (9-23); CARBON DIOXIDE LEVEL 28 MMOL/L (20-31); CHLORIDE LEVEL 104 MMOL/L (98-107); CREATININE FOR GFR 0.53 MG/DL (0.55-1.30); GLOMERULAR FILTRATION RATE > 60.0 (>60); GLUCOSE, FASTING 63 MG/DL (60-100); MAGNESIUM LEVEL 1.9 MG/DL (1.8-2.4); PHOSPHORUS LEVEL 2.3 MG/DL (2.5-4.9); SODIUM LEVEL 139 MMOL/L (136-145); TOTAL PROTEIN 6.6 G/DL (5.7-8.2); TRIGLYCERIDES LEVEL 52 MG/DL (<150)
== END ==
LOC: M SHH 15:28
PROVIDERS: ATTEND Internal Medicine Gastroenterology
DX: K31.84 Gastroparesis (principal); Q79.60 Ehlers-Danlos syndrome, unspecified; E46 Unspecified protein-calorie malnutrition; Z79.899 Other long term (current) drug therapy

== ENCOUNTER 2024-06-17 08:28 | Outpatient (CLI) | payer BC ==
[2024-06-17] VITALS (8 sets, daily range): BP systolic 79–102; BP diastolic 47–67; O2SAT 97–100
[~2024-06-17] VITALS: Ht 172.7 cm; Wt 47.7 kg
[~2024-06-17 08:28] MED LIST changes: +NS 1,000 ML IV SCH; +SERT50TA29
[2024-06-17] MEDS ORDERED: diphenhydrAMINE 50MG/ML VIAL IV PRN (09:00)
[2024-06-17] MEDS: dexameTHASONE 20 MG IV PRIOR TO INFUSION IV ONE (09:27)
[2024-06-17] MEDS: ACETAMINOPHEN *IV* 1,000 MG in IV 1 EA IV ONE (09:45)
[2024-06-17] MEDS: diphenhydrAMINE 50MG IV PRIOR TO INFUSION IV ONE (09:57)
[2024-06-17] MEDS: IMMUNE GLOBULIN 10% 40 GM in IV 1 EA IV ONE (10:31)
[2024-06-17] MEDS: ONDANSETRON 4MG 2ML VIAL IV ONE (15:13)
[2024-06-17] MEDS: NS 1,000 ML IV ONE (15:13)
== END 2024-06-17 16:20 ==
LOC: M INFU 08:28
PROVIDERS: ATTEND Internal Medicine Infectious Disease
DX: G90.9 Disorder of the autonomic nervous system, unspecified (principal); Z88.1 Allergy status to other antibiotic agents; Z88.8 Allergy status to other drugs, medicaments and biological substances; Z88.0 Allergy status to penicillin
CPT/HCPCS: 96361; 96365; 96366; 96375; J0131; J1100; J1200; J1459

== ENCOUNTER → 2024-06-24 | Outpatient (REF) | payer MEDICARE, BC ==
[~2024-06-24] MED LIST changes: +ATIV1TAB10 PO; +DICY10IN2 IM; +FLUC40SU JT; +GABA-1172; +GABA-1172 PO; -GABA-282; -GABA-282 PO; +MACR100C43 PO; -NS 1,000 ML IV SCH; +NYST-13 TOP; +PROM25AM IM; -SERT50TA29; +SERT50TA29 PO; +SUMA20SP4; +[UNRECOGNIZED DRUG - CODE] SC
[2024-06-24 15:25] LABS: BASO % 0.2 % (0.0-1.0); EOS # 0.1 10^3/uL (0.0-0.5); EOS % 1.6 % (0.0-3.0); HEMATOCRIT 34.8 % (36.0-47.0); HEMOGLOBIN 11.1 g/dl (12.0-15.5); LYMPH # 1.8 10^3/uL (1.5-5.0); MEAN CORPUSCULAR HEMOGLOBIN 27.2 pg (27.0-33.0); MEAN CORPUSCULAR HGB CONC 31.9 g/dl (32.0-36.5); MEAN CORPUSCULAR VOLUME 85.3 fl (80.0-96.0); MONO # 0.4 10^3/uL (0.0-0.8); MONO % 8.9 % (2.0-8.0); NEUTROPHILS # 2.2 10^3/uL (1.5-8.5); NEUTROPHILS % 49.1 % (36.0-66.0); PLATELET COUNT, AUTOMATED 174 10^3/uL (150-450); RED BLOOD COUNT 4.08 10^6/uL (4.00-5.40); WHITE BLOOD COUNT 4.5 10^3/uL (4.0-10.0)
[2024-06-24 15:53] LABS: ALBUMIN 3.5 G/DL (3.2-5.2); ALKALINE PHOSPHATASE 69 U/L (46-116); ALT/SGPT 18 U/L (7.0-40); AST/SGOT 16 U/L (<34); BILIRUBIN,TOTAL 0.3 MG/DL (0.3-1.2); BLOOD UREA NITROGEN 19 MG/DL (9-23); CALCIUM LEVEL 8.6 MG/DL (8.5-10.1); CARBON DIOXIDE LEVEL 26 MMOL/L (20-31); CHLORIDE LEVEL 105 MMOL/L (98-107); CREATININE FOR GFR 0.53 MG/DL (0.55-1.30); GLOMERULAR FILTRATION RATE > 60.0 (>60); GLUCOSE, FASTING 66 MG/DL (60-100); MAGNESIUM LEVEL 1.8 MG/DL (1.8-2.4); PHOSPHORUS LEVEL 1.8 MG/DL (2.5-4.9); SODIUM LEVEL 136 MMOL/L (136-145); TOTAL PROTEIN 7.5 G/DL (5.7-8.2); TRIGLYCERIDES LEVEL 55 MG/DL (<150)
[2024-06-24 15:54] LABS: TOTAL 25(OH) VITAMIN D 20.5 NG/ML (20.0-100.0)
== END ==
LOC: M SHH 14:28
PROVIDERS: ATTEND Internal Medicine Gastroenterology
DX: K31.84 Gastroparesis (principal); Q79.60 Ehlers-Danlos syndrome, unspecified; E46 Unspecified protein-calorie malnutrition; Z79.899 Other long term (current) drug therapy

== ENCOUNTER 2024-07-01 09:00 | Outpatient (CLI) | payer MEDICARE, BC ==
[~2024-07-01] VITALS: Ht 172.7 cm; Wt 47.7 kg
[2024-07-01 09:00] VITALS: BP 102/61; O2SAT 100
[~2024-07-01 09:00] MED LIST changes: -ATIV1TAB10 PO; -DICY10IN2 IM; -FLUC40SU JT; -MACR100C43 PO; -NYST-13 TOP; -PROM25AM IM; -SUMA20SP4; -[UNRECOGNIZED DRUG - CODE] SC; +diphenhydrAMINE 50MG/ML VIAL IV PRN
[2024-07-01] MEDS: dexameTHASONE 20 MG IV PRIOR TO INFUSION IV ONE (09:20)
[2024-07-01] MEDS: ONDANSETRON 4MG 2ML VIAL IV ONE (09:20)
[2024-07-01] MEDS: diphenhydrAMINE 50MG IV PRIOR TO INFUSION IV ONE (09:20)
[2024-07-01] MEDS: ACETAMINOPHEN *IV* 1,000 MG in IV 1 EA IV ONE (09:50)
[2024-07-01] MEDS: IMMUNE GLOBULIN 10% 40 GM in IV 1 EA IV ONE (10:09)
[2024-07-01 10:30] VITALS: BP 88/54; O2SAT 100
[2024-07-01 11:00] VITALS: BP 89/56; O2SAT 100
[2024-07-01 11:30] VITALS: BP 91/59; O2SAT 100
[2024-07-01 13:30] VITALS: BP 98/53; O2SAT 100
[2024-07-01] MEDS: NS 1,000 ML IV ONE (14:44)
[2024-07-01 15:50] VITALS: BP 97/56; O2SAT 100
[2024-08-06] MEDS ORDERED: PROM25AM IM (13:05)
== END 2024-07-01 16:00 ==
LOC: M INFU 09:00
PROVIDERS: ATTEND Internal Medicine Infectious Disease
DX: G90.9 Disorder of the autonomic nervous system, unspecified (principal); Z88.0 Allergy status to penicillin; Z88.1 Allergy status to other antibiotic agents; Z88.8 Allergy status to other drugs, medicaments and biological substances
CPT/HCPCS: 96361; 96365; 96366; 96375; J0131; J1100; J1200; J1459; J2405

== ENCOUNTER 2024-07-08 11:20 | Inpatient (IN) | payer BC, MEDICARE ==
[~2024-07-08] VITALS: Ht 172.7 cm; Wt 47.1 kg
[~2024-07-08 11:20] MED LIST changes: -ATIV1TAB10 PO; -DICY10IN2 IM; -FLUC40SU JT; -GABA-1172; -GABA-1172 PO; +GABA-282; +GABA-282 PO; -MACR100C43 PO; -NYST-13 TOP; -PROM25AM IM; -SUMA20SP4; -[UNRECOGNIZED DRUG - CODE] SC
[2024-07-08] MEDS ORDERED: ATIV1TAB10 PO (11:38)
[2024-07-08] MEDS ORDERED: SUMA20SP4 (11:38)
[2024-07-08 12:55] LABS: BASO % 0.3 % (0.0-1.0); EOS % 1.2 % (0.0-3.0); HEMATOCRIT 34.6 % (36.0-47.0); HEMOGLOBIN 11.5 g/dl (12.0-15.5); LYMPH # 1.2 10^3/uL (1.5-5.0); LYMPH % 37.5 % (24.0-44.0); MEAN CORPUSCULAR HEMOGLOBIN 29.6 pg (27.0-33.0); MEAN CORPUSCULAR HGB CONC 33.2 g/dl (32.0-36.5); MEAN CORPUSCULAR VOLUME 88.9 fl (80.0-96.0); MONO # 0.2 10^3/uL (0.0-0.8); MONO % 6.5 % (2.0-8.0); NEUTROPHILS # 1.8 10^3/uL (1.5-8.5); NEUTROPHILS % 54.2 % (36.0-66.0); PLATELET COUNT, AUTOMATED 149 10^3/uL (150-450); RED BLOOD COUNT 3.89 10^6/uL (4.00-5.40); WHITE BLOOD COUNT 3.2 10^3/uL (4.0-10.0)
[2024-07-08 13:20] LABS: LIPASE 24 U/L (12-53)
[2024-07-08 13:21] LABS: HCG, SERUM QUALITATIVE NEGATIVE (NEGATIVE)
[2024-07-08 13:22] LABS: ALBUMIN 3.5 G/DL (3.2-5.2); ALKALINE PHOSPHATASE 68 U/L (46-116); ALT/SGPT 19 U/L (7.0-40); AST/SGOT 22 U/L (<34); BILIRUBIN,DIRECT < 0.1 MG/DL (<0.4); BILIRUBIN,TOTAL 0.2 MG/DL (0.3-1.2); BLOOD UREA NITROGEN 19 MG/DL (9-23); CARBON DIOXIDE LEVEL 26 MMOL/L (20-31); CHLORIDE LEVEL 109 MMOL/L (98-107); CREATININE FOR GFR 0.69 MG/DL (0.55-1.30); GLOMERULAR FILTRATION RATE > 60.0 (>60); GLUCOSE, FASTING 82 MG/DL (60-100); POTASSIUM SERUM 4.1 MMOL/L (3.5-5.1); SODIUM LEVEL 140 MMOL/L (136-145); TOTAL PROTEIN 7.9 G/DL (5.7-8.2)
[2024-07-08] MEDS ORDERED: ISOVUE-370 76% 100ML VIAL As Ordered ONE (13:43)
[2024-07-08] MEDS: ONDANSETRON 4MG 2ML VIAL IV ONE (13:58)
[2024-07-08] MEDS: NS 1,000 ML IV SCH (13:59)
[2024-07-08] MEDS: MORPHINE 4 MG/ML 1ML VIAL IV ONE (13:59)
[2024-07-08] MEDS ORDERED: HOME MED LIST COMPLETE! XX SCH (16:15)
[2024-07-08] MEDS: ceFAZolin SOD 2 GM in IV 1 EA IV ONE (16:54)
[2024-07-08] MEDS ORDERED: ONDANSETRON 4MG ORAL DISINTEGRATING TAB PO PRN (17:00)
[2024-07-08] MEDS ORDERED: LORazepam 0.5 MG TAB PO PRN (17:00)
[2024-07-08] MEDS ORDERED: LEVALBUTEROL 1.25MG 0.5ML CONCENTRATE NEB INH PRN (17:00)
[2024-07-08] MEDS ORDERED: **NOTE PATIENT COMMENT** MISC XX SCH (17:00)
[2024-07-08] MEDS ORDERED: FLEET ENEMA PR PRN (17:00)
[2024-07-08] MEDS ORDERED: LEVALBUTEROL HFA 45MCG/ACT 15GM INHALER INH PRN (17:00)
[2024-07-08] MEDS ORDERED: [UNRECOGNIZED DRUG - OTHER] XX SCH (17:25)
[2024-07-08] MEDS ORDERED: TPN XX SCH (17:25)
[2024-07-08] MEDS: ACETAMINOPHEN *IV* 500 MG in IV 1 EA IV ONE (17:28)
[2024-07-08] MEDS: MIDODRINE 5 MG TAB PO SCH (18:24)
[2024-07-08] MEDS: PREGABALIN 75 MG CAP(LYRICA) PO SCH (18:38)
[2024-07-08] MEDS: MORPHINE 4 MG/ML 1ML VIAL IV PRN (18:42)
[2024-07-08] MEDS: KCL 20MEQ IN 0.45NS 1000ML 1,000 ML IV SCH (19:18)
[2024-07-08] MEDS: ADVAIR HFA 230/21MCG INHALER INH SCH (20:32)
[2024-07-08] MEDS: FAMOTIDINE 20 MG TAB PO SCH (21:44)
[2024-07-08 22:40] VITALS: BP 142/98; TEMP 97.7; O2SAT 97
[2024-07-08] MEDS: PRIMIDONE 50MG TAB PO SCH (22:45)
[2024-07-08] MEDS ORDERED: LORazepam 2 MG/ML 1ML VIAL IV PRN (23:30)
[2024-07-09] MEDS: NS 1,000 ML IV SCH (00:05)
[2024-07-09] MEDS: ceFAZolin SOD 1 GM in D5W MINI-BAG PLUS 50 ML IV SCH (01:29)
[2024-07-09 04:50] VITALS: BP 97/58; TEMP 97.3; O2SAT 97
[2024-07-09 06:42] LABS: HEMATOCRIT 34.8 % (36.0-47.0); HEMOGLOBIN 11.1 g/dl (12.0-15.5); MEAN CORPUSCULAR HEMOGLOBIN 29.1 pg (27.0-33.0); MEAN CORPUSCULAR HGB CONC 31.9 g/dl (32.0-36.5); MEAN CORPUSCULAR VOLUME 91.3 fl (80.0-96.0); PLATELET COUNT, AUTOMATED 129 10^3/uL (150-450); RED BLOOD COUNT 3.81 10^6/uL (4.00-5.40); WHITE BLOOD COUNT 2.7 10^3/uL (4.0-10.0)
[2024-07-09 07:31] LABS: ALKALINE PHOSPHATASE 65 U/L (46-116); ALT/SGPT 15 U/L (7.0-40); AST/SGOT 17 U/L (<34); BILIRUBIN,TOTAL 0.3 MG/DL (0.3-1.2); BLOOD UREA NITROGEN 10 MG/DL (9-23); CALCIUM LEVEL 8.1 MG/DL (8.5-10.1); CARBON DIOXIDE LEVEL 21 MMOL/L (20-31); CHLORIDE LEVEL 109 MMOL/L (98-107); CREATININE FOR GFR 0.53 MG/DL (0.55-1.30); GLOMERULAR FILTRATION RATE > 60.0 (>60); GLUCOSE, FASTING 70 MG/DL (60-100); POTASSIUM SERUM 4.1 MMOL/L (3.5-5.1); SODIUM LEVEL 138 MMOL/L (136-145)
[2024-07-09] MEDS: SERTRALINE HCL 50 MG TAB PO SCH (09:00)
[2024-07-09] MEDS: BISACODYL 10MG SUPP PR SCH (09:00)
[2024-07-09] MEDS: ONDANSETRON 4MG 2ML VIAL IV PRN (09:29)
[2024-07-09 12:00] VITALS: BP 115/77; TEMP 98; O2SAT 98
[2024-07-09] MEDS ORDERED: ISOVUE-300 61% 100ML VIAL As Ordered ONE (14:37)
[2024-07-09] MEDS ORDERED: MIDAZOLAM INJ 2MG/2ML VIAL As Ordered ONE (14:44)
[2024-07-09] MEDS ORDERED: fentaNYL 100 MCG/2 ML INJECTION As Ordered ONE (14:44)
[2024-07-09] MEDS ORDERED: LIDOCAINE 1% MDV 20ML VIAL As Ordered ONE (14:59)
[2024-07-09] MEDS ORDERED: LIDOCAINE 2% JELLY 6ML SYRINGE As Ordered ONE (15:00)
[2024-07-09 16:04] VITALS: BP 127/86; TEMP 97.7; O2SAT 100
[2024-07-09 16:45] VITALS: BP 129/85; TEMP 97.9; O2SAT 100
[2024-07-09] MEDS ORDERED: SODIUM PHOSPHATE IV SCH (18:00)
[2024-07-09] MEDS ORDERED: FAT EMULSION IV 250 ML IV ONE (18:00)
[2024-07-09] MEDS ORDERED: SODIUM ACETATE IV SCH (18:00)
[2024-07-09] MEDS ORDERED: [UNRECOGNIZED DRUG - OTHER] IV SCH (18:00)
[2024-07-09] MEDS: SODIUM PHOSPHATE IV SCH (18:01)
[2024-07-09] MEDS: SODIUM ACETATE IV SCH (18:01)
[2024-07-09] MEDS: [UNRECOGNIZED DRUG - OTHER] IV SCH (18:01)
[2024-07-09] MEDS: FAT EMULSION IV 250 ML IV ONE (18:05)
[2024-07-09] MEDS: diphenhydrAMINE 50MG/ML VIAL IV PRN (18:08)
[2024-07-09 20:00] VITALS: BP 107/64; TEMP 97.7; O2SAT 99
[2024-07-09] MEDS: FAMOTIDINE IV BAG 20 MG in IV 1 EA IV SCH (21:19)
[2024-07-09] MEDS: MORPHINE 4 MG/ML 1ML VIAL IV PRN (21:19)
[2024-07-10 04:00] VITALS: BP 102/61; TEMP 97.5; O2SAT 96
[2024-07-10 06:35] LABS: HEMATOCRIT 33.7 % (36.0-47.0); HEMOGLOBIN 11.1 g/dl (12.0-15.5); MEAN CORPUSCULAR HGB CONC 32.9 g/dl (32.0-36.5); PLATELET COUNT, AUTOMATED 149 10^3/uL (150-450); RED BLOOD COUNT 3.83 10^6/uL (4.00-5.40); WHITE BLOOD COUNT 3.2 10^3/uL (4.0-10.0)
[2024-07-10 06:48] LABS: ALBUMIN 3.1 G/DL (3.2-5.2); ALKALINE PHOSPHATASE 61 U/L (46-116); ALT/SGPT 19 U/L (7.0-40); AST/SGOT 20 U/L (<34); BILIRUBIN,TOTAL 0.2 MG/DL (0.3-1.2); BLOOD UREA NITROGEN 10 MG/DL (9-23); CALCIUM LEVEL 8.8 MG/DL (8.5-10.1); CARBON DIOXIDE LEVEL 28 MMOL/L (20-31); CHLORIDE LEVEL 104 MMOL/L (98-107); CREATININE FOR GFR 0.51 MG/DL (0.55-1.30); GLOMERULAR FILTRATION RATE > 60.0 (>60); GLUCOSE, FASTING 133 MG/DL (60-100); POTASSIUM SERUM 4.2 MMOL/L (3.5-5.1); SODIUM LEVEL 134 MMOL/L (136-145); TOTAL PROTEIN 7.2 G/DL (5.7-8.2)
[2024-07-10 12:00] VITALS: BP 119/86; TEMP 97.9; O2SAT 100
[2024-07-10] MEDS: SODIUM ACETATE IV SCH (17:30)
[2024-07-10] MEDS: [UNRECOGNIZED DRUG - OTHER] IV SCH (17:30)
[2024-07-10] MEDS: SODIUM PHOSPHATE IV SCH (17:30)
[2024-07-10] MEDS: FAT EMULSION IV 250 ML IV ONE (17:30)
[2024-07-10] MEDS: ONDANSETRON 4MG ORAL DISINTEGRATING TAB SL STA (18:44)
[2024-07-10 20:11] VITALS: BP 106/54; TEMP 97.9; O2SAT 96
[2024-07-10] MEDS: MORPHINE 4 MG/ML 1ML VIAL IV PRN (20:14)
[2024-07-10] MEDS: DULoxetine 30MG CAPSULE (CYMBALTA) PO SCH (20:15)
[2024-07-10] MEDS: ONDANSETRON 4MG ORAL DISINTEGRATING TAB PO SCH (20:16)
[2024-07-11 03:38] VITALS: BP 105/63; TEMP 97.7; O2SAT 97
[2024-07-11 06:01] LABS: HEMOGLOBIN 11.3 g/dl (12.0-15.5); MEAN CORPUSCULAR HEMOGLOBIN 29.1 pg (27.0-33.0); MEAN CORPUSCULAR HGB CONC 32.3 g/dl (32.0-36.5); MEAN CORPUSCULAR VOLUME 90.2 fl (80.0-96.0); PLATELET COUNT, AUTOMATED 152 10^3/uL (150-450); RED BLOOD COUNT 3.88 10^6/uL (4.00-5.40); WHITE BLOOD COUNT 2.9 10^3/uL (4.0-10.0)
[2024-07-11 06:31] LABS: ALBUMIN 3.2 G/DL (3.2-5.2); ALKALINE PHOSPHATASE 59 U/L (46-116); ALT/SGPT 19 U/L (7.0-40); AST/SGOT 25 U/L (<34); BILIRUBIN,TOTAL < 0.2 MG/DL (0.3-1.2); BLOOD UREA NITROGEN 12 MG/DL (9-23); CALCIUM LEVEL 8.8 MG/DL (8.5-10.1); CARBON DIOXIDE LEVEL 28 MMOL/L (20-31); CHLORIDE LEVEL 104 MMOL/L (98-107); CREATININE FOR GFR 0.46 MG/DL (0.55-1.30); GLOMERULAR FILTRATION RATE > 60.0 (>60); GLUCOSE, FASTING 121 MG/DL (60-100); MAGNESIUM LEVEL 1.8 MG/DL (1.8-2.4); POTASSIUM SERUM 4.4 MMOL/L (3.5-5.1); SODIUM LEVEL 135 MMOL/L (136-145); TOTAL PROTEIN 7.4 G/DL (5.7-8.2)
[2024-07-11 09:00] VITALS: BP 120/86
[2024-07-11 11:50] VITALS: BP 126/83; TEMP 97.9; O2SAT 94
[2024-07-11] MEDS: [UNRECOGNIZED DRUG - OTHER] IV SCH (17:20)
[2024-07-11] MEDS: FAT EMULSION IV 250 ML IV ONE (17:20)
[2024-07-11] MEDS: SODIUM PHOSPHATE IV SCH (17:20)
[2024-07-11] MEDS: SODIUM ACETATE IV SCH (17:20)
[2024-07-11] MEDS ORDERED: [UNRECOGNIZED DRUG - OTHER] IV SCH (18:00)
[2024-07-11] MEDS ORDERED: SODIUM ACETATE IV SCH (18:00)
[2024-07-11] MEDS ORDERED: SODIUM PHOSPHATE IV SCH (18:00)
[2024-07-11 19:37] VITALS: BP 122/82; TEMP 97.7; O2SAT 97
[2024-07-12 04:15] VITALS: BP 105/65; TEMP 97.5; O2SAT 98
[2024-07-12 05:56] LABS: HEMATOCRIT 35.9 % (36.0-47.0); HEMOGLOBIN 11.7 g/dl (12.0-15.5); MEAN CORPUSCULAR HEMOGLOBIN 29.3 pg (27.0-33.0); MEAN CORPUSCULAR HGB CONC 32.6 g/dl (32.0-36.5); MEAN CORPUSCULAR VOLUME 89.8 fl (80.0-96.0); PLATELET COUNT, AUTOMATED 153 10^3/uL (150-450); WHITE BLOOD COUNT 3.4 10^3/uL (4.0-10.0)
[2024-07-12 06:18] LABS: ALBUMIN 3.4 G/DL (3.2-5.2); ALKALINE PHOSPHATASE 60 U/L (46-116); ALT/SGPT 15 U/L (7.0-40); AST/SGOT 22 U/L (<34); BILIRUBIN,TOTAL < 0.2 MG/DL (0.3-1.2); BLOOD UREA NITROGEN 13 MG/DL (9-23); CALCIUM LEVEL 9.1 MG/DL (8.5-10.1); CARBON DIOXIDE LEVEL 27 MMOL/L (20-31); CHLORIDE LEVEL 103 MMOL/L (98-107); CREATININE FOR GFR 0.44 MG/DL (0.55-1.30); GLOMERULAR FILTRATION RATE > 60.0 (>60); GLUCOSE, FASTING 115 MG/DL (60-100); MAGNESIUM LEVEL 1.9 MG/DL (1.8-2.4); POTASSIUM SERUM 4.2 MMOL/L (3.5-5.1); SODIUM LEVEL 134 MMOL/L (136-145); TOTAL PROTEIN 7.7 G/DL (5.7-8.2)
[2024-07-12 12:00] VITALS: BP 133/88; TEMP 97.9; O2SAT 99
[2024-07-12] MEDS: ACETAMINOPHEN 325MG/10.15ML UDC JT PRN (15:42)
[2024-07-12 15:43] VITALS: BP 113/72
[2024-07-12] MEDS: [UNRECOGNIZED DRUG - OTHER] IV SCH (17:42)
[2024-07-12] MEDS: SODIUM ACETATE IV SCH (17:42)
[2024-07-12] MEDS: FAT EMULSION IV 250 ML IV ONE (17:42)
[2024-07-12] MEDS: SODIUM PHOSPHATE IV SCH (17:42)
[2024-07-12] MEDS: ACETAMINOPHEN *IV* 1,000 MG in IV 1 EA IV ONE (18:41)
[2024-07-12 20:00] VITALS: BP 98/67; TEMP 97.7; O2SAT 97
[2024-07-12] MEDS ORDERED: ACETAMINOPHEN 650MG SUPP PR PRN (20:50)
[2024-07-13 04:00] VITALS: BP 102/61; TEMP 97.7; O2SAT 98
[2024-07-13 06:18] LABS: HEMATOCRIT 34.6 % (36.0-47.0); HEMOGLOBIN 11.3 g/dl (12.0-15.5); MEAN CORPUSCULAR HEMOGLOBIN 29.6 pg (27.0-33.0); MEAN CORPUSCULAR HGB CONC 32.7 g/dl (32.0-36.5); MEAN CORPUSCULAR VOLUME 90.6 fl (80.0-96.0); PLATELET COUNT, AUTOMATED 121 10^3/uL (150-450); RED BLOOD COUNT 3.82 10^6/uL (4.00-5.40)
[2024-07-13 06:41] LABS: ALBUMIN 3.3 G/DL (3.2-5.2); ALKALINE PHOSPHATASE 59 U/L (46-116); ALT/SGPT 17 U/L (7.0-40); AST/SGOT 23 U/L (<34); BILIRUBIN,TOTAL < 0.2 MG/DL (0.3-1.2); BLOOD UREA NITROGEN 13 MG/DL (9-23); CALCIUM LEVEL 8.9 MG/DL (8.5-10.1); CARBON DIOXIDE LEVEL 26 MMOL/L (20-31); CHLORIDE LEVEL 106 MMOL/L (98-107); CREATININE FOR GFR 0.43 MG/DL (0.55-1.30); GLOMERULAR FILTRATION RATE > 60.0 (>60); GLUCOSE, FASTING 112 MG/DL (60-100); POTASSIUM SERUM 3.9 MMOL/L (3.5-5.1); SODIUM LEVEL 136 MMOL/L (136-145); TOTAL PROTEIN 7.5 G/DL (5.7-8.2)
[2024-07-13 08:27] LABS: C REACTIVE PROTEIN QUANTITATIV < 0.40 MG/DL (<1.0)
[2024-07-13 08:28] LABS: ERYTHROCYTE SEDIMENTATION RATE 46 mm/hr (0-20)
[2024-07-13] MEDS ORDERED: ACETAMINOPHEN 325MG/10.15ML UDC GT PRN (08:35)
[2024-07-13] MEDS: ONDANSETRON 4MG 2ML VIAL IV PRN (10:59)
[2024-07-13 12:00] VITALS: BP 106/61; TEMP 96.8; O2SAT 99
[2024-07-13] MEDS: FAT EMULSION IV 250 ML IV ONE (18:11)
[2024-07-13] MEDS: SODIUM PHOSPHATE IV SCH (18:11)
[2024-07-13] MEDS: SODIUM ACETATE IV SCH (18:11)
[2024-07-13] MEDS: [UNRECOGNIZED DRUG - OTHER] IV SCH (18:11)
[2024-07-13 20:00] VITALS: BP 113/70; TEMP 97.9; O2SAT 98
[2024-07-14 04:00] VITALS: BP 103/61; TEMP 97.5; O2SAT 96
[2024-07-14 06:31] LABS: HEMATOCRIT 35.7 % (36.0-47.0); HEMOGLOBIN 11.6 g/dl (12.0-15.5); MEAN CORPUSCULAR HEMOGLOBIN 29.2 pg (27.0-33.0); MEAN CORPUSCULAR HGB CONC 32.5 g/dl (32.0-36.5); MEAN CORPUSCULAR VOLUME 89.9 fl (80.0-96.0); PLATELET COUNT, AUTOMATED 145 10^3/uL (150-450); RED BLOOD COUNT 3.97 10^6/uL (4.00-5.40); WHITE BLOOD COUNT 3.4 10^3/uL (4.0-10.0)
[2024-07-14 07:00] LABS: ALBUMIN 3.4 G/DL (3.2-5.2); ALKALINE PHOSPHATASE 67 U/L (46-116); ALT/SGPT 203 U/L (7.0-40); AST/SGOT 251 U/L (<34); BILIRUBIN,TOTAL 0.2 MG/DL (0.3-1.2); BLOOD UREA NITROGEN 12 MG/DL (9-23); CALCIUM LEVEL 8.9 MG/DL (8.5-10.1); CARBON DIOXIDE LEVEL 26 MMOL/L (20-31); CHLORIDE LEVEL 105 MMOL/L (98-107); CREATININE FOR GFR 0.42 MG/DL (0.55-1.30); GLOMERULAR FILTRATION RATE > 60.0 (>60); GLUCOSE, FASTING 125 MG/DL (60-100); POTASSIUM SERUM 4.3 MMOL/L (3.5-5.1); SODIUM LEVEL 134 MMOL/L (136-145); TOTAL PROTEIN 7.5 G/DL (5.7-8.2)
[2024-07-14 12:00] VITALS: BP 148/84; TEMP 97.3; O2SAT 98
[2024-07-14] MEDS: FAT EMULSION IV 250 ML IV ONE (17:55)
[2024-07-14] MEDS: [UNRECOGNIZED DRUG - OTHER] IV SCH (17:55)
[2024-07-14] MEDS: SODIUM ACETATE IV SCH (17:55)
[2024-07-14] MEDS: SODIUM PHOSPHATE IV SCH (17:55)
[2024-07-14 20:58] VITALS: BP 135/79; TEMP 97.7; O2SAT 98
[2024-07-15 04:00] VITALS: BP 109/59; TEMP 97.3; O2SAT 98
[2024-07-15 06:29] LABS: HEMATOCRIT 34.9 % (36.0-47.0); HEMOGLOBIN 11.3 g/dl (12.0-15.5); MEAN CORPUSCULAR HEMOGLOBIN 29.4 pg (27.0-33.0); MEAN CORPUSCULAR HGB CONC 32.4 g/dl (32.0-36.5); MEAN CORPUSCULAR VOLUME 90.9 fl (80.0-96.0); PLATELET COUNT, AUTOMATED 130 10^3/uL (150-450); RED BLOOD COUNT 3.84 10^6/uL (4.00-5.40); WHITE BLOOD COUNT 4.7 10^3/uL (4.0-10.0)
[2024-07-15 06:49] LABS: ALBUMIN 3.3 G/DL (3.2-5.2); ALKALINE PHOSPHATASE 70 U/L (46-116); ALT/SGPT 230 U/L (7.0-40); AST/SGOT 210 U/L (<34); BILIRUBIN,TOTAL 0.2 MG/DL (0.3-1.2); BLOOD UREA NITROGEN 13 MG/DL (9-23); CALCIUM LEVEL 8.8 MG/DL (8.5-10.1); CARBON DIOXIDE LEVEL 26 MMOL/L (20-31); CHLORIDE LEVEL 106 MMOL/L (98-107); CREATININE FOR GFR 0.45 MG/DL (0.55-1.30); GLOMERULAR FILTRATION RATE > 60.0 (>60); GLUCOSE, FASTING 118 MG/DL (60-100); SODIUM LEVEL 135 MMOL/L (136-145); TOTAL PROTEIN 7.2 G/DL (5.7-8.2)
[2024-07-15 08:29] VITALS: BP 109/61
[2024-07-15] MEDS ORDERED: IMMUNE GLOBULIN 10% 40 GM in IV 1 EA IV ONE (10:00)
[2024-07-15] MEDS: ACETAMINOPHEN *IV* 1,000 MG in IV 1 EA IV ONE (10:06)
[2024-07-15] MEDS: diphenhydrAMINE 50MG/ML VIAL IV ONE (10:53)
[2024-07-15 12:00] VITALS: BP 110/78; TEMP 97.3; O2SAT 100
[2024-07-15 16:15] VITALS: BP 104/68
[2024-07-15] MEDS: SODIUM PHOSPHATE IV SCH (18:37)
[2024-07-15] MEDS: FAT EMULSION IV 250 ML IV ONE (18:37)
[2024-07-15] MEDS: [UNRECOGNIZED DRUG - OTHER] IV SCH (18:37)
[2024-07-15] MEDS: SODIUM ACETATE IV SCH (18:37)
[2024-07-15 20:16] VITALS: BP 106/55; TEMP 97.7; O2SAT 98
[2024-07-16 04:07] VITALS: BP 121/59; TEMP 97.5; O2SAT 96
[2024-07-16 06:09] LABS: BASO % 0.1 % (0.0-1.0); HEMATOCRIT 34.8 % (36.0-47.0); HEMOGLOBIN 11.5 g/dl (12.0-15.5); LYMPH % 13.8 % (24.0-44.0); MEAN CORPUSCULAR HEMOGLOBIN 29.8 pg (27.0-33.0); MEAN CORPUSCULAR VOLUME 90.2 fl (80.0-96.0); MONO # 0.7 10^3/uL (0.0-0.8); NEUTROPHILS # 5.6 10^3/uL (1.5-8.5); NEUTROPHILS % 76.7 % (36.0-66.0); PLATELET COUNT, AUTOMATED 132 10^3/uL (150-450); RED BLOOD COUNT 3.86 10^6/uL (4.00-5.40); WHITE BLOOD COUNT 7.2 10^3/uL (4.0-10.0)
[2024-07-16 06:31] LABS: ALBUMIN 3.5 G/DL (3.2-5.2); ALKALINE PHOSPHATASE 84 U/L (46-116); ALT/SGPT 356 U/L (7.0-40); AST/SGOT 311 U/L (<34); BILIRUBIN,TOTAL 0.3 MG/DL (0.3-1.2); BLOOD UREA NITROGEN 16 MG/DL (9-23); CALCIUM LEVEL 8.6 MG/DL (8.5-10.1); CARBON DIOXIDE LEVEL 26 MMOL/L (20-31); CHLORIDE LEVEL 104 MMOL/L (98-107); GLOMERULAR FILTRATION RATE > 60.0 (>60); GLUCOSE, FASTING 118 MG/DL (60-100); POTASSIUM SERUM 3.9 MMOL/L (3.5-5.1); SODIUM LEVEL 133 MMOL/L (136-145); TOTAL PROTEIN 7.4 G/DL (5.7-8.2)
[2024-07-16 09:50] VITALS: BP 119/63
[2024-07-16] MEDS ORDERED: MACR100C43 PO (11:38)
[2024-07-16 12:00] VITALS: BP 140/91; TEMP 98.1; O2SAT 95
== END 2024-07-16 12:34 | disposition home health service (06) | DRG 252 ==
LOC: M ED 11:20 → M ED INP 16:56 → M MSPAV 22:28
PROVIDERS: ADMIT Family Medicine; ATTEND Student in an Organized Health Care Education/Training Program
PROC: 0DHA3UZ Insertion of Feeding Device into Jejunum, Percutaneous Approach (ICD-10-PCS; principal; 2024-07-09 14:00)
DX: K94.13 Enterostomy malfunction (principal); E43 Unspecified severe protein-calorie malnutrition; D61.818 Other pancytopenia; K94.12 Enterostomy infection; D80.3 Selective deficiency of immunoglobulin G [IgG] subclasses; Q79.60 Ehlers-Danlos syndrome, unspecified; K31.84 Gastroparesis; G90.A Postural orthostatic tachycardia syndrome [POTS]; N39.0 Urinary tract infection, site not specified; B96.1 Klebsiella pneumoniae [K. pneumoniae] as the cause of diseases classified elsewhere; D50.9 Iron deficiency anemia, unspecified; J45.909 Unspecified asthma, uncomplicated; K59.00 Constipation, unspecified; G25.0 Essential tremor; R33.9 Retention of urine, unspecified; Z88.8 Allergy status to other drugs, medicaments and biological substances; Z79.899 Other long term (current) drug therapy

== ENCOUNTER → 2024-07-08 | Outpatient (REF) | payer MEDICARE, BC ==
[~2024-07-08] MED LIST changes: +ATIV1TAB10 PO; +DICY10IN2 IM; +FLUC40SU JT; +MACR100C43 PO; +NYST-13 TOP; +PROM25AM IM; +SUMA20SP4; +[UNRECOGNIZED DRUG - CODE] SC; -diphenhydrAMINE 50MG/ML VIAL IV PRN
[2024-07-08 14:19] LABS: BASO % 0.6 % (0.0-1.0); EOS # 0.1 10^3/uL (0.0-0.5); EOS % 2.7 % (0.0-3.0); HEMOGLOBIN 11.5 g/dl (12.0-15.5); LYMPH # 1.5 10^3/uL (1.5-5.0); LYMPH % 43.1 % (24.0-44.0); MEAN CORPUSCULAR HEMOGLOBIN 28.3 pg (27.0-33.0); MEAN CORPUSCULAR HGB CONC 31.9 g/dl (32.0-36.5); MEAN CORPUSCULAR VOLUME 88.7 fl (80.0-96.0); MONO # 0.3 10^3/uL (0.0-0.8); MONO % 8.6 % (2.0-8.0); NEUTROPHILS # 1.5 10^3/uL (1.5-8.5); PLATELET COUNT, AUTOMATED 160 10^3/uL (150-450); RED BLOOD COUNT 4.06 10^6/uL (4.00-5.40); WHITE BLOOD COUNT 3.4 10^3/uL (4.0-10.0)
[2024-07-08 14:40] LABS: ALBUMIN 3.6 G/DL (3.2-5.2); ALKALINE PHOSPHATASE 68 U/L (46-116); ALT/SGPT 21 U/L (7.0-40); AST/SGOT 20 U/L (<34); BILIRUBIN,TOTAL 0.2 MG/DL (0.3-1.2); BLOOD UREA NITROGEN 19 MG/DL (9-23); CALCIUM LEVEL 8.9 MG/DL (8.5-10.1); CARBON DIOXIDE LEVEL 27 MMOL/L (20-31); CHLORIDE LEVEL 107 MMOL/L (98-107); CREATININE FOR GFR 0.61 MG/DL (0.55-1.30); GLOMERULAR FILTRATION RATE > 60.0 (>60); GLUCOSE, FASTING 74 MG/DL (60-100); PHOSPHORUS LEVEL 2.7 MG/DL (2.5-4.9); POTASSIUM SERUM 3.9 MMOL/L (3.5-5.1); SODIUM LEVEL 138 MMOL/L (136-145); TRIGLYCERIDES LEVEL 87 MG/DL (<150)
== END ==
LOC: M SHH 13:53
PROVIDERS: ATTEND Internal Medicine Gastroenterology
DX: K31.84 Gastroparesis (principal); Q79.60 Ehlers-Danlos syndrome, unspecified; Z79.899 Other long term (current) drug therapy; E46 Unspecified protein-calorie malnutrition

== ENCOUNTER 2024-07-17 07:00 | Outpatient (CLI) | payer MEDICARE, BC ==
[~2024-07-17] VITALS: Ht 172.7 cm; Wt 46.0 kg
[2024-07-17] VITALS (7 sets, daily range): BP systolic 99–107; BP diastolic 53–64; O2SAT 98–100
[~2024-07-17 07:00] MED LIST changes: +ACETAMINOPHEN *IV* 1,000 MG in IV 1 EA IV ONE; +ATIV1TAB10 PO; +GABA-1172; +GABA-1172 PO; -GABA-282; -GABA-282 PO; +MACR100C43 PO; +NS 1,000 ML IV ONE; +ONDANSETRON 4MG 2ML VIAL IV ONE; +SUMA20SP4; +dexameTHASONE 20 MG IV PRIOR TO INFUSION IV ONE; +diphenhydrAMINE 50MG IV PRIOR TO INFUSION IV ONE; +diphenhydrAMINE 50MG/ML VIAL IV PRN
[2024-07-17] MEDS: diphenhydrAMINE 50MG IV PRIOR TO INFUSION IV ONE (07:26)
[2024-07-17] MEDS: dexameTHASONE 20 MG IV PRIOR TO INFUSION IV ONE (07:28)
[2024-07-17] MEDS: ONDANSETRON 4MG 2ML VIAL IV ONE (07:33)
[2024-07-17] MEDS: ACETAMINOPHEN *IV* 1,000 MG in IV 1 EA IV ONE (07:41)
[2024-07-17] MEDS: IMMUNE GLOBULIN 10% 40 GM in IV 1 EA IV ONE (08:09)
[2024-07-17] MEDS: NS 1,000 ML IV ONE (13:21)
[2024-08-06] MEDS ORDERED: PROM25AM IM (13:05)
== END 2024-07-17 14:35 ==
LOC: M INFU 07:00
PROVIDERS: ATTEND Internal Medicine Infectious Disease
DX: G90.9 Disorder of the autonomic nervous system, unspecified (principal); Z88.0 Allergy status to penicillin; Z88.1 Allergy status to other antibiotic agents; Z88.8 Allergy status to other drugs, medicaments and biological substances
CPT/HCPCS: 96361; 96365; 96366; 96368; 96375; J0131; J1100; J1200; J1459; J2405

== ENCOUNTER → 2024-07-23 | Outpatient (REF) | payer MEDICARE, BC ==
[~2024-07-23] MED LIST changes: -ACETAMINOPHEN *IV* 1,000 MG in IV 1 EA IV ONE; +DICY10IN2 IM; +FLUC40SU JT; -NS 1,000 ML IV ONE; +NYST-13 TOP; -ONDANSETRON 4MG 2ML VIAL IV ONE; +PROM25AM IM; +[UNRECOGNIZED DRUG - CODE] SC; -dexameTHASONE 20 MG IV PRIOR TO INFUSION IV ONE; -diphenhydrAMINE 50MG IV PRIOR TO INFUSION IV ONE; -diphenhydrAMINE 50MG/ML VIAL IV PRN
== END ==
LOC: M LAB REF 17:23
PROVIDERS: ATTEND Nurse Practitioner Adult Health
DX: R10.9 Unspecified abdominal pain (principal)

== ENCOUNTER 2024-07-29 08:09 | Outpatient (CLI) | payer MEDICARE, BC ==
[2024-07-29] VITALS (7 sets, daily range): BP systolic 77–99; BP diastolic 47–66; O2SAT 98–100
[~2024-07-29] VITALS: Ht 160 cm; Wt 56.6 kg
[~2024-07-29 08:09] MED LIST changes: -DICY10IN2 IM; -FLUC40SU JT; -NYST-13 TOP; -PROM25AM IM; -[UNRECOGNIZED DRUG - CODE] SC; +diphenhydrAMINE 50MG/ML VIAL IV PRN
[2024-07-29] MEDS: ACETAMINOPHEN *IV* 1,000 MG in IV 1 EA IV ONE (08:42)
[2024-07-29] MEDS: diphenhydrAMINE 50MG IV PRIOR TO INFUSION IV ONE (08:54)
[2024-07-29] MEDS: ONDANSETRON 4MG 2ML VIAL IV ONE (08:55)
[2024-07-29] MEDS: dexameTHASONE 20 MG IV PRIOR TO INFUSION IV ONE (09:00)
[2024-07-29] MEDS: IMMUNE GLOBULIN 10% 40 GM in IV 1 EA IV ONE (09:55)
[2024-07-29] MEDS: NS 1,000 ML IV ONE (14:33)
[2024-08-06] MEDS ORDERED: PROM25AM IM (13:05)
== END 2024-07-29 16:00 ==
LOC: M INFU 08:09
PROVIDERS: ATTEND Internal Medicine Infectious Disease
DX: G90.9 Disorder of the autonomic nervous system, unspecified (principal); Z88.0 Allergy status to penicillin; Z88.1 Allergy status to other antibiotic agents; Z88.8 Allergy status to other drugs, medicaments and biological substances
CPT/HCPCS: 96365; 96366; 96368; 96375; J0131; J1100; J1200; J1459; J2405

== ENCOUNTER → 2024-08-01 | Outpatient (CLI) | payer MEDICARE, BC ==
[~2024-08-01] MED LIST changes: +DICY10IN2 IM; -GABA-1172; -GABA-1172 PO; +GABA-282; +GABA-282 PO; +PROM25AM; +[UNRECOGNIZED DRUG - CODE] SC; -diphenhydrAMINE 50MG/ML VIAL IV PRN
== END ==
LOC: M LAB 18:13
PROVIDERS: ATTEND Physician Assistant
DX: K94.10 Enterostomy complication, unspecified (principal)

== ENCOUNTER 2024-08-02 19:31 | Emergency (ER) | payer MEDICARE, BC ==
[~2024-08-02] VITALS: Ht 172.7 cm; Wt 47.6 kg
[2024-08-02 19:31] VITALS: TEMP 98.7
[~2024-08-02 19:31] MED LIST changes: -DICY10IN2 IM; -PROM25AM; -[UNRECOGNIZED DRUG - CODE] SC
[2024-08-02] MEDS: KETOROLAC 30 MG/ML 1ML VIAL IV ONE (21:08)
[2024-08-02] MEDS: NS 500 ML IV ONE (21:08)
[2024-08-02 21:11] LABS: BASO % 0.2 % (0.0-1.0); EOS # 0.1 10^3/uL (0.0-0.5); HEMOGLOBIN 11.8 g/dl (12.0-15.5); LYMPH # 1.3 10^3/uL (1.5-5.0); LYMPH % 26.8 % (24.0-44.0); MEAN CORPUSCULAR HEMOGLOBIN 30.9 pg (27.0-33.0); MEAN CORPUSCULAR HGB CONC 33.7 g/dl (32.0-36.5); MEAN CORPUSCULAR VOLUME 91.6 fl (80.0-96.0); MONO # 0.2 10^3/uL (0.0-0.8); MONO % 3.8 % (2.0-8.0); NEUTROPHILS # 3.3 10^3/uL (1.5-8.5); PLATELET COUNT, AUTOMATED 106 10^3/uL (150-450); RED BLOOD COUNT 3.82 10^6/uL (4.00-5.40); WHITE BLOOD COUNT 4.8 10^3/uL (4.0-10.0)
[2024-08-02 21:32] LABS: C REACTIVE PROTEIN QUANTITATIV < 0.40 MG/DL (<1.0)
[2024-08-02 21:34] LABS: ALBUMIN 3.4 G/DL (3.2-5.2); ALKALINE PHOSPHATASE 62 U/L (46-116); ALT/SGPT 33 U/L (7.0-40); AST/SGOT 35 U/L (<34); BILIRUBIN,DIRECT < 0.1 MG/DL (<0.4); BILIRUBIN,TOTAL 0.2 MG/DL (0.3-1.2); BLOOD UREA NITROGEN 15 MG/DL (9-23); CALCIUM LEVEL 8.9 MG/DL (8.5-10.1); CARBON DIOXIDE LEVEL 26 MMOL/L (20-31); CHLORIDE LEVEL 108 MMOL/L (98-107); CREATININE FOR GFR 0.67 MG/DL (0.55-1.30); GLOMERULAR FILTRATION RATE > 60.0 (>60); GLUCOSE, FASTING 71 MG/DL (60-100); POTASSIUM SERUM 4.1 MMOL/L (3.5-5.1); SODIUM LEVEL 139 MMOL/L (136-145); TOTAL PROTEIN 8.3 G/DL (5.7-8.2)
[2024-08-02 21:37] LABS: APPEARANCE, URINE HAZY (CLEAR); BACTERIA, URINE AUTO NEGATIVE (NEGATIVE); BILIRUBIN, URINE AUTO NEGATIVE (NEGATIVE); BLOOD, URINE BLOOD 2+ (NEGATIVE); COLOR, URINE YELLOW (YELLOW); GLUCOSE, URINE (UA) AUTO NEGATIVE (NEGATIVE); KETONE, URINE AUTO NEGATIVE (NEGATIVE); LEUKOCYTE ESTERASE, URINE AUTO TRACE (NEGATIVE); MUCUS, URINE SMALL (NEGATIVE); NITRITE, URINE AUTO NEGATIVE (NEGATIVE); PROTEIN, URINE AUTO 2+ mg/dL (NEGATIVE); RBC, URINE AUTO TNTC /HPF (0-3); SPECIFIC GRAVITY URINE AUTO 1.027 (1.002-1.035); SQUAMOUS EPITHELIAL CELL UR AU 1 /HPF (0-6); UROBILINOGEN, URINE AUTO 0.2 mg/dL (0.0-2.0); WBC, URINE AUTO 8 /HPF (0-3)
[2024-08-02 21:41] LABS: PROCALCITONIN <0.04 ng/ml
[2024-08-02] MEDS ORDERED: ISOVUE-370 76% 100ML VIAL As Ordered ONE (21:55)
[2024-08-02] MEDS: MORPHINE 2 MG/ML 1ML VIAL IV ONE (22:28)
[2024-08-02] MEDS: HYDROcodone/APAP LIQUID 7.5-325MG 15ML UDC (LORTAB ELIXIR) PO ONE (23:45)
[2024-08-03] MEDS: DICYCLOMINE INJ 20MG/2ML IM ONE (01:43)
[2024-08-03] MEDS ORDERED: [UNRECOGNIZED DRUG - CODE] SC (02:22)
[2024-08-03] MEDS ORDERED: DICY10IN2 IM (02:22)
[2024-08-03 02:30] VITALS: BP 95/62; O2SAT 99
[2024-08-06] MEDS ORDERED: PROM25AM (13:05)
== END 2024-08-03 02:37 | disposition home or self-care (01) ==
LOC: M ED 19:31
DX: R10.9 Unspecified abdominal pain (principal); G43.B0 Ophthalmoplegic migraine, not intractable; G43.909 Migraine, unspecified, not intractable, without status migrainosus; G90.A Postural orthostatic tachycardia syndrome [POTS]; K31.84 Gastroparesis; J45.909 Unspecified asthma, uncomplicated; K21.9 Gastro-esophageal reflux disease without esophagitis; Q79.60 Ehlers-Danlos syndrome, unspecified; Z43.1 Encounter for attention to gastrostomy; Z93.4 Other artificial openings of gastrointestinal tract status; Z79.899 Other long term (current) drug therapy; Z88.1 Allergy status to other antibiotic agents; Z88.8 Allergy status to other drugs, medicaments and biological substances
CPT/HCPCS: 71045; 74177; 80048; 80076; 81001; 83605; 84145; 85025; 86140; 87040; 87086; 87486; 87581; 87633; 87798; 93005; 93041; 94760; 96372; 96374; 96375; 99285; J0500; J1885; Q9967

== ENCOUNTER 2024-08-05 15:07 | Outpatient (CLI) | payer BC ==
[~2024-08-05 15:07] MED LIST changes: +DICY10IN2 IM; +[UNRECOGNIZED DRUG - CODE] SC
[2024-08-05 15:22] VITALS: BP 113/64; O2SAT 96
[2024-08-06] MEDS ORDERED: PROM25AM (13:05)
== END 2024-08-05 15:20 ==
LOC: M INFU 15:07
PROVIDERS: ATTEND Nurse Practitioner Adult Health
DX: Z48.00 Encounter for change or removal of nonsurgical wound dressing (principal)

== ENCOUNTER 2024-08-09 16:28 | Emergency (ER) | payer MEDICARE, BC ==
[~2024-08-09] VITALS: Ht 172.7 cm; Wt 97.1 kg
[~2024-08-09 16:28] MED LIST changes: +PROM25AM
[2024-08-09 20:53] VITALS: BP 115/64; TEMP 98.1; O2SAT 98
== END 2024-08-09 20:54 | disposition home or self-care (01) ==
LOC: M ED 16:28
DX: K94.19 Other complications of enterostomy (principal); Q79.60 Ehlers-Danlos syndrome, unspecified; R53.83 Other fatigue; Z79.899 Other long term (current) drug therapy; Z88.1 Allergy status to other antibiotic agents; Z88.8 Allergy status to other drugs, medicaments and biological substances

== ENCOUNTER 2024-08-13 08:20 | Outpatient (CLI) | payer MEDICARE, BC ==
[2024-08-13] VITALS (7 sets, daily range): BP systolic 87–100; BP diastolic 48–62; O2SAT 97–100
[~2024-08-13] VITALS: Ht 172.7 cm; Wt 57.0 kg
[2024-08-13] MEDS ORDERED: diphenhydrAMINE 50MG/ML VIAL IV PRN (08:30)
[2024-08-13] MEDS: ACETAMINOPHEN *IV* 1,000 MG in IV 1 EA IV ONE (08:38)
[2024-08-13] MEDS: ONDANSETRON 4MG 2ML VIAL IV ONE (08:39)
[2024-08-13] MEDS: dexameTHASONE 20 MG IV PRIOR TO INFUSION IV ONE (08:39)
[2024-08-13] MEDS: diphenhydrAMINE 50MG IV PRIOR TO INFUSION IV ONE (08:39)
[2024-08-13] MEDS: IMMUNE GLOBULIN 10% 40 GM in IV 1 EA IV ONE (09:55)
[2024-08-13] MEDS: NS 1,000 ML IV ONE (14:05)
== END 2024-08-13 11:00 ==
LOC: M INFU 08:20
PROVIDERS: ATTEND Internal Medicine Infectious Disease
DX: G90.9 Disorder of the autonomic nervous system, unspecified (principal); G99.0 Autonomic neuropathy in diseases classified elsewhere; Z88.8 Allergy status to other drugs, medicaments and biological substances
CPT/HCPCS: 96365; 96366; 96367; J0131; J1100; J1200; J1459; J2405

== ENCOUNTER → 2024-08-15 | Outpatient (REF) | payer MEDICARE, BC ==
[~2024-08-15] MED LIST changes: +FLUC40SU JT; +GABA-1172; +GABA-1172 PO; -GABA-282; -GABA-282 PO; +NYST-13 TOP; -PROM25AM; +PROM25AM IM
== END ==
LOC: M LAB REF 17:02
PROVIDERS: ATTEND Physician Assistant
DX: N39.0 Urinary tract infection, site not specified (principal)

== ENCOUNTER 2024-08-19 15:00 | Outpatient (CLI) | payer MEDICARE, BC ==
[~2024-08-19] VITALS: Ht 172.7 cm; Wt 57.0 kg
[2024-08-19 15:00] VITALS: BP 105/66; O2SAT 100
[~2024-08-19 15:00] MED LIST changes: -FLUC40SU JT; +GABA-1172; +GABA-1172 PO; -GABA-282; -GABA-282 PO; -NYST-13 TOP
[2024-08-19] MEDS ORDERED: FLUC40SU JT (18:04)
[2024-08-19] MEDS ORDERED: DICY10IN2 IM (22:14)
[2024-08-19] MEDS ORDERED: NYST-13 TOP (22:15)
== END 2024-08-19 15:15 ==
LOC: M INFU 15:00
PROVIDERS: ATTEND Nurse Practitioner Adult Health
DX: Z48.00 Encounter for change or removal of nonsurgical wound dressing (principal)

== ENCOUNTER 2024-08-19 17:15 | Inpatient (IN) | payer MEDICARE, MEDICAID ==
[~2024-08-19] VITALS: Ht 172.7 cm; Wt 48.5 kg
[2024-08-19] MEDS ORDERED: SODIUM CHLORIDE 0.9% INJ 10 ML SYR IV PRN (17:45)
[2024-08-19] MEDS ORDERED: FLUC40SU JT (18:04)
[2024-08-19 18:06] LABS: BASO % 0.4 % (0.0-1.0); EOS # 0.1 10^3/uL (0.0-0.5); EOS % 1.6 % (0.0-3.0); HEMATOCRIT 34.2 % (36.0-47.0); HEMOGLOBIN 11.7 g/dl (12.0-15.5); LYMPH # 1.3 10^3/uL (1.5-5.0); LYMPH % 25.6 % (24.0-44.0); MEAN CORPUSCULAR HEMOGLOBIN 31.2 pg (27.0-33.0); MEAN CORPUSCULAR HGB CONC 34.2 g/dl (32.0-36.5); MEAN CORPUSCULAR VOLUME 91.2 fl (80.0-96.0); MONO # 0.3 10^3/uL (0.0-0.8); MONO % 6.9 % (2.0-8.0); NEUTROPHILS # 3.2 10^3/uL (1.5-8.5); NEUTROPHILS % 65.1 % (36.0-66.0); PLATELET COUNT, AUTOMATED 156 10^3/uL (150-450); RED BLOOD COUNT 3.75 10^6/uL (4.00-5.40); WHITE BLOOD COUNT 4.9 10^3/uL (4.0-10.0)
[2024-08-19 18:40] LABS: BLOOD UREA NITROGEN 14 MG/DL (9-23); CALCIUM LEVEL 8.7 MG/DL (8.5-10.1); CARBON DIOXIDE LEVEL 25 MMOL/L (20-31); CHLORIDE LEVEL 107 MMOL/L (98-107); CREATININE FOR GFR 0.63 MG/DL (0.55-1.30); GLOMERULAR FILTRATION RATE > 60.0 (>60); GLUCOSE, FASTING 77 MG/DL (60-100); POTASSIUM SERUM 5.7 MMOL/L (3.5-5.1); SODIUM LEVEL 134 MMOL/L (136-145)
[2024-08-19] MEDS: NS 1,000 ML IV ONE (20:40)
[2024-08-19] MEDS: PRIMIDONE 50MG TAB PO SCH (21:00)
[2024-08-19] MEDS: FAMOTIDINE 20 MG TAB PO SCH (21:00)
[2024-08-19 21:10] LABS: ERYTHROCYTE SEDIMENTATION RATE 59 mm/hr (0-20)
[2024-08-19 21:12] LABS: PROCALCITONIN <0.04 ng/ml
[2024-08-19] MEDS: D5W/0.45% SODIUM CHLORIDE 1,000 ML IV SCH (21:45)
[2024-08-19 21:52] LABS: C REACTIVE PROTEIN QUANTITATIV < 0.40 MG/DL (<1.0)
[2024-08-19] MEDS: CEFEPIME HCL 2 GM in D5W MINI-BAG PLUS 50 ML IV SCH (22:11)
[2024-08-19] MEDS ORDERED: DICY10IN2 IM (22:14)
[2024-08-19] MEDS ORDERED: NYST-13 TOP (22:15)
[2024-08-19] MEDS ORDERED: HOME MED LIST COMPLETE! XX SCH (22:20)
[2024-08-19] MEDS ORDERED: LORazepam 0.5 MG TAB PO PRN (22:55)
[2024-08-19] MEDS: LINEZOLID 600 MG in IV 1 EA IV SCH (22:55)
[2024-08-19] MEDS: ADVAIR HFA 230/21MCG INHALER INH SCH (23:49)
[2024-08-20] VITALS (8 sets, daily range): BP systolic 96–110; BP diastolic 53–72; TEMP 97.2–98.4; O2SAT 96–99
[2024-08-20 01:20] LABS: IMMUNOGLOBULIN A 108.6 MG/DL (40-350); IMMUNOGLOBULIN G 2013 MG/DL (650-1600)
[2024-08-20 07:57] LABS: BLOOD UREA NITROGEN 7 MG/DL (9-23); CALCIUM LEVEL 8.7 MG/DL (8.5-10.1); CARBON DIOXIDE LEVEL 24 MMOL/L (20-31); CHLORIDE LEVEL 108 MMOL/L (98-107); CREATININE FOR GFR 0.56 MG/DL (0.55-1.30); GLOMERULAR FILTRATION RATE > 60.0 (>60); GLUCOSE, FASTING 96 MG/DL (60-100); POTASSIUM SERUM 3.8 MMOL/L (3.5-5.1); SODIUM LEVEL 136 MMOL/L (136-145)
[2024-08-20] MEDS: MIDODRINE 5 MG TAB PO SCH (08:28)
[2024-08-20] MEDS: PANTOPRAZOLE 40MG VIAL IV SCH (08:28)
[2024-08-20 08:50] LABS: HEMATOCRIT 30.2 % (36.0-47.0); HEMOGLOBIN 10.3 g/dl (12.0-15.5); MEAN CORPUSCULAR HEMOGLOBIN 31.2 pg (27.0-33.0); MEAN CORPUSCULAR HGB CONC 34.1 g/dl (32.0-36.5); MEAN CORPUSCULAR VOLUME 91.5 fl (80.0-96.0); PLATELET COUNT, AUTOMATED 137 10^3/uL (150-450); WHITE BLOOD COUNT 3.5 10^3/uL (4.0-10.0)
[2024-08-20] MEDS ORDERED: SODIUM CHLORIDE 0.9% INJ 10 ML SYR IV SCH (09:00)
[2024-08-20] MEDS: HEPARIN SOD (PORCINE) 5000UNITS/ML 1ML VIAL/SYRINGE SC SCH (09:00)
[2024-08-20] MEDS ORDERED: LIDOCAINE 1% MDV 20ML VIAL As Ordered ONE (12:10)
[2024-08-20] MEDS: FLUZONE VACCINE TRIVALENT PF(2024-25) 0.5ML SYRINGE IM.IMMUN ONE (17:13)
[2024-08-20] MEDS: ONDANSETRON 4MG ORAL DISINTEGRATING TAB PO PRN (20:09)
[2024-08-20] MEDS ORDERED: cefTRIAXone SOD 2GM VIAL IM SCH (21:10)
[2024-08-20] MEDS: cefTRIAXone SOD 2 GM in D5W MINI-BAG PLUS 50 ML IV SCH (21:49)
[2024-08-20] MEDS: LORazepam 2 MG/ML 1ML VIAL IV ONE (22:01)
[2024-08-21 04:31] VITALS: BP 100/58; TEMP 97.1; O2SAT 98
[2024-08-21 05:33] LABS: BASO % 0.3 % (0.0-1.0); EOS % 0.9 % (0.0-3.0); HEMATOCRIT 29.7 % (36.0-47.0); HEMOGLOBIN 10.1 g/dl (12.0-15.5); LYMPH # 0.8 10^3/uL (1.5-5.0); LYMPH % 23.7 % (24.0-44.0); MEAN CORPUSCULAR HEMOGLOBIN 31.2 pg (27.0-33.0); MEAN CORPUSCULAR VOLUME 91.7 fl (80.0-96.0); MONO # 0.4 10^3/uL (0.0-0.8); MONO % 10.5 % (2.0-8.0); NEUTROPHILS # 2.1 10^3/uL (1.5-8.5); NEUTROPHILS % 64.3 % (36.0-66.0); PLATELET COUNT, AUTOMATED 146 10^3/uL (150-450); RED BLOOD COUNT 3.24 10^6/uL (4.00-5.40); WHITE BLOOD COUNT 3.3 10^3/uL (4.0-10.0)
[2024-08-21 06:00] LABS: BLOOD UREA NITROGEN < 5 MG/DL (9-23); CALCIUM LEVEL 8.7 MG/DL (8.5-10.1); CARBON DIOXIDE LEVEL 23 MMOL/L (20-31); CHLORIDE LEVEL 106 MMOL/L (98-107); CREATININE FOR GFR 0.57 MG/DL (0.55-1.30); GLOMERULAR FILTRATION RATE > 60.0 (>60); GLUCOSE, FASTING 96 MG/DL (60-100); POTASSIUM SERUM 3.7 MMOL/L (3.5-5.1); SODIUM LEVEL 135 MMOL/L (136-145)
[2024-08-21 07:56] VITALS: BP 103/61; TEMP 98.5; O2SAT 99
[2024-08-21] MEDS: diphenhydrAMINE 50MG/ML VIAL IV ONE (09:37)
[2024-08-21] MEDS: DAPTOmycin 400 MG in NS 50 ML IV SCH (09:39)
[2024-08-21 12:33] VITALS: BP 106/65; TEMP 98.7; O2SAT 98
[2024-08-21 16:00] VITALS: BP 105/62; TEMP 98.6; O2SAT 98
[2024-08-21] MEDS: SODIUM CHLORIDE 0.9% INJ 10 ML SYR IV PRN (17:33)
[2024-08-21 19:05] VITALS: BP 109/72; TEMP 98.5; O2SAT 98
[2024-08-21 23:05] VITALS: BP 97/5; TEMP 99.2; O2SAT 98
[2024-08-21] MEDS: PROMETHAZINE 25MG/ML 1ML VIAL IM ONE (23:35)
[2024-08-22] VITALS: BP 99/57
[2024-08-22 05:12] VITALS: BP 98/55; TEMP 97.7; O2SAT 99
[2024-08-22 05:34] LABS: BASO % 0.3 % (0.0-1.0); EOS # 0.1 10^3/uL (0.0-0.5); EOS % 2.6 % (0.0-3.0); HEMATOCRIT 30.9 % (36.0-47.0); HEMOGLOBIN 10.3 g/dl (12.0-15.5); LYMPH # 1.1 10^3/uL (1.5-5.0); LYMPH % 37.5 % (24.0-44.0); MEAN CORPUSCULAR HEMOGLOBIN 30.7 pg (27.0-33.0); MEAN CORPUSCULAR HGB CONC 33.3 g/dl (32.0-36.5); MONO # 0.4 10^3/uL (0.0-0.8); MONO % 11.8 % (2.0-8.0); NEUTROPHILS # 1.4 10^3/uL (1.5-8.5); NEUTROPHILS % 47.5 % (36.0-66.0); PLATELET COUNT, AUTOMATED 147 10^3/uL (150-450); RED BLOOD COUNT 3.36 10^6/uL (4.00-5.40)
[2024-08-22 06:17] LABS: BLOOD UREA NITROGEN < 5 MG/DL (9-23); CALCIUM LEVEL 8.6 MG/DL (8.5-10.1); CARBON DIOXIDE LEVEL 24 MMOL/L (20-31); CHLORIDE LEVEL 105 MMOL/L (98-107); CREATININE FOR GFR 0.52 MG/DL (0.55-1.30); GLOMERULAR FILTRATION RATE > 60.0 (>60); GLUCOSE, FASTING 92 MG/DL (60-100); POTASSIUM SERUM 3.7 MMOL/L (3.5-5.1); SODIUM LEVEL 134 MMOL/L (136-145)
[2024-08-22 07:38] VITALS: BP 100/56; TEMP 96.5; O2SAT 95
[2024-08-22] MEDS: NS 1,000 ML IV SCH (07:56)
[2024-08-22] MEDS: SODIUM CHLORIDE 0.9% INJ 10 ML SYR IV SCH (08:12)
[2024-08-22 11:47] VITALS: BP 104/58; TEMP 97.5; O2SAT 98
== END 2024-08-22 15:44 | disposition home or self-care (01) | DRG 699 ==
LOC: M ED 17:15 → M ED INP 21:40 → M PCU 08-20 01:19
PROVIDERS: ADMIT Internal Medicine; ATTEND Internal Medicine
DX: T83.511A Infection and inflammatory reaction due to indwelling urethral catheter, initial encounter (principal); K90.9 Intestinal malabsorption, unspecified; D80.3 Selective deficiency of immunoglobulin G [IgG] subclasses; Q79.60 Ehlers-Danlos syndrome, unspecified; N39.0 Urinary tract infection, site not specified; K31.84 Gastroparesis; J45.909 Unspecified asthma, uncomplicated; D50.9 Iron deficiency anemia, unspecified; G62.9 Polyneuropathy, unspecified; B96.20 Unspecified Escherichia coli [E. coli] as the cause of diseases classified elsewhere; F32.A Depression, unspecified; G90.A Postural orthostatic tachycardia syndrome [POTS]; G25.0 Essential tremor; Z88.8 Allergy status to other drugs, medicaments and biological substances; Z79.899 Other long term (current) drug therapy; Z93.1 Gastrostomy status; Z93.4 Other artificial openings of gastrointestinal tract status; Y84.6 Urinary catheterization as the cause of abnormal reaction of the patient, or of later complication, without mention of misadventure at the time of the procedure

== ENCOUNTER → 2024-08-19 | Outpatient (CLI) | payer MEDICARE, MEDICAID ==
[~2024-08-19] MED LIST changes: -GABA-1172; -GABA-1172 PO; +GABA-282; +GABA-282 PO
[2024-08-19 16:14] LABS: BASO % 0.2 % (0.0-1.0); EOS # 0.1 10^3/uL (0.0-0.5); EOS % 1.9 % (0.0-3.0); HEMATOCRIT 35.6 % (36.0-47.0); HEMOGLOBIN 11.8 g/dl (12.0-15.5); LYMPH # 1.3 10^3/uL (1.5-5.0); LYMPH % 30.4 % (24.0-44.0); MEAN CORPUSCULAR HEMOGLOBIN 30.6 pg (27.0-33.0); MEAN CORPUSCULAR HGB CONC 33.1 g/dl (32.0-36.5); MEAN CORPUSCULAR VOLUME 92.2 fl (80.0-96.0); MONO # 0.3 10^3/uL (0.0-0.8); MONO % 6.1 % (2.0-8.0); NEUTROPHILS # 2.5 10^3/uL (1.5-8.5); NEUTROPHILS % 61.4 % (36.0-66.0); PLATELET COUNT, AUTOMATED 161 10^3/uL (150-450); RED BLOOD COUNT 3.86 10^6/uL (4.00-5.40); WHITE BLOOD COUNT 4.1 10^3/uL (4.0-10.0)
[2024-08-19 16:21] LABS: C REACTIVE PROTEIN QUANTITATIV < 0.40 MG/DL (<1.0)
[2024-08-19 16:22] LABS: IRON (FE) 61 UG/DL (50-170); PERCENT SATURATION 21.3 % (13.2-45.0); TOTAL IRON BINDING CAPACITY 286 UG/DL (250-425)
[2024-08-19 16:23] LABS: ALBUMIN 3.4 G/DL (3.2-5.2); ALKALINE PHOSPHATASE 67 U/L (46-116); ALT/SGPT 25 U/L (7.0-40); AST/SGOT 27 U/L (<34); BILIRUBIN,TOTAL 0.3 MG/DL (0.3-1.2); BLOOD UREA NITROGEN 13 MG/DL (9-23); CALCIUM LEVEL 9.3 MG/DL (8.5-10.1); CARBON DIOXIDE LEVEL 29 MMOL/L (20-31); CHLORIDE LEVEL 106 MMOL/L (98-107); CREATININE FOR GFR 0.68 MG/DL (0.55-1.30); FERRITIN 189.7 NG/ML (7.3-270.7); FOLATE 14.6 NG/ML (>5.4); GLOMERULAR FILTRATION RATE > 60.0 (>60); GLUCOSE, FASTING 92 MG/DL (60-100); PHOSPHORUS LEVEL 3.3 MG/DL (2.5-4.9); POTASSIUM SERUM 3.9 MMOL/L (3.5-5.1); SODIUM LEVEL 136 MMOL/L (136-145); TOTAL PROTEIN 8.5 G/DL (5.7-8.2)
[2024-08-19 16:24] LABS: VITAMIN B12 LEVEL 914 PG/ML (211-911)
[2024-08-19 16:52] LABS: PROCALCITONIN <0.04 ng/ml
== END ==
LOC: M LAB 15:20
PROVIDERS: ATTEND Family Medicine
DX: K90.9 Intestinal malabsorption, unspecified (principal)

== ENCOUNTER 2024-08-27 08:00 | Outpatient (CLI) | payer MEDICARE, BC ==
[2024-08-27] VITALS (7 sets, daily range): BP systolic 89–118; BP diastolic 51–69; O2SAT 96–100
[~2024-08-27] VITALS: Ht 172.7 cm; Wt 49.0 kg
[~2024-08-27 08:00] MED LIST changes: +FLUC40SU JT; +NYST-13 TOP; +diphenhydrAMINE 50MG/ML VIAL IV PRN
[2024-08-27] MEDS: ACETAMINOPHEN *IV* 1,000 MG in IV 1 EA IV ONE (08:07)
[2024-08-27] MEDS: ONDANSETRON 4MG 2ML VIAL IV ONE (08:08)
[2024-08-27] MEDS: diphenhydrAMINE 50MG/ML VIAL IV ONE (08:08)
[2024-08-27] MEDS: IMMUNE GLOBULIN 10% 40 GM in IV 1 EA IV ONE (09:13)
[2024-08-27] MEDS: NS 1,000 ML IV SCH (14:06)
== END 2024-08-27 14:25 ==
LOC: M INFU 08:00
PROVIDERS: ATTEND Internal Medicine Infectious Disease
DX: G90.9 Disorder of the autonomic nervous system, unspecified (principal); G99.0 Autonomic neuropathy in diseases classified elsewhere; Z88.8 Allergy status to other drugs, medicaments and biological substances; Z88.1 Allergy status to other antibiotic agents
CPT/HCPCS: 96361; 96365; 96366; 96375; J0131; J1100; J1200; J1459; J2405

== ENCOUNTER 2024-09-03 11:18 | Outpatient (CLI) | payer MEDICARE, BC ==
[2024-09-03 11:30] VITALS: BP 100/65; O2SAT 100
== END 2024-09-03 11:45 ==
LOC: M INFU 11:18
PROVIDERS: ATTEND Nurse Practitioner Adult Health
DX: Z48.00 Encounter for change or removal of nonsurgical wound dressing (principal); Z88.8 Allergy status to other drugs, medicaments and biological substances

== ENCOUNTER → 2024-09-03 | Outpatient (CLI) | payer MEDICARE, BC ==
[~2024-09-03] MED LIST changes: -diphenhydrAMINE 50MG/ML VIAL IV PRN
[2024-09-03 13:03] LABS: BASO % 0.4 % (0.0-1.0); EOS # 0.2 10^3/uL (0.0-0.5); EOS % 3.4 % (0.0-3.0); HEMATOCRIT 35.9 % (36.0-47.0); HEMOGLOBIN 12.1 g/dl (12.0-15.5); LYMPH # 1.4 10^3/uL (1.5-5.0); LYMPH % 25.7 % (24.0-44.0); MEAN CORPUSCULAR HEMOGLOBIN 31.7 pg (27.0-33.0); MEAN CORPUSCULAR HGB CONC 33.7 g/dl (32.0-36.5); MONO # 0.3 10^3/uL (0.0-0.8); MONO % 6.4 % (2.0-8.0); NEUTROPHILS # 3.4 10^3/uL (1.5-8.5); NEUTROPHILS % 63.9 % (36.0-66.0); PLATELET COUNT, AUTOMATED 198 10^3/uL (150-450); RED BLOOD COUNT 3.82 10^6/uL (4.00-5.40); WHITE BLOOD COUNT 5.3 10^3/uL (4.0-10.0)
[2024-09-03 13:26] LABS: ALBUMIN 3.3 G/DL (3.2-5.2); ALKALINE PHOSPHATASE 66 U/L (46-116); ALT/SGPT 21 U/L (7.0-40); AST/SGOT 27 U/L (<34); BILIRUBIN,TOTAL 0.3 MG/DL (0.3-1.2); BLOOD UREA NITROGEN 19 MG/DL (9-23); CALCIUM LEVEL 9.6 MG/DL (8.5-10.1); CARBON DIOXIDE LEVEL 32 MMOL/L (20-31); CHLORIDE LEVEL 103 MMOL/L (98-107); CREATININE FOR GFR 0.54 MG/DL (0.55-1.30); GLOMERULAR FILTRATION RATE > 60.0 (>60); GLUCOSE, FASTING 86 MG/DL (60-100); PHOSPHORUS LEVEL 4.7 MG/DL (2.5-4.9); POTASSIUM SERUM 4.1 MMOL/L (3.5-5.1); SODIUM LEVEL 137 MMOL/L (136-145); TOTAL PROTEIN 8.7 G/DL (5.7-8.2); TRIGLYCERIDES LEVEL 73 MG/DL (<150)
[2024-09-03 13:28] LABS: TOTAL 25(OH) VITAMIN D 15.9 NG/ML (20.0-100.0)
== END ==
LOC: M LAB 12:08
PROVIDERS: ATTEND Internal Medicine Gastroenterology
DX: K31.84 Gastroparesis (principal); Q79.60 Ehlers-Danlos syndrome, unspecified; E46 Unspecified protein-calorie malnutrition; Z79.899 Other long term (current) drug therapy

== ENCOUNTER → 2024-09-06 | Outpatient (CLI) | payer MEDICARE, BC ==
[2024-09-06 14:35] LABS: FOLATE 10.2 NG/ML (>5.4)
[2024-09-11 15:47] LABS: VITAMIN B6,PYRIDOXAL PHOSPHATE 7.9 ng/mL (2.1-21.7)
== END ==
LOC: M LAB 10:57
PROVIDERS: ATTEND Psychiatry & Neurology Neurology
DX: D51.9 Vitamin B12 deficiency anemia, unspecified (principal); G99.0 Autonomic neuropathy in diseases classified elsewhere; G70.00 Myasthenia gravis without (acute) exacerbation

== ENCOUNTER → 2024-09-09 | Outpatient (CLI) | payer MEDICARE, BC | LOC: M WHC 13:43 | PROVIDERS: ATTEND Physician Assistant | DX: R26.9 Unspecified abnormalities of gait and mobility (principal); M81.0 Age-related osteoporosis without current pathological fracture; M85.89 Other specified disorders of bone density and structure, multiple sites ==

== ENCOUNTER 2024-09-10 08:00 | Outpatient (CLI) | payer MEDICARE, BC ==
[~2024-09-10] VITALS: Ht 172.7 cm; Wt 60.0 kg
[2024-09-10 08:00] VITALS: BP 99/62; O2SAT 97
[~2024-09-10 08:00] MED LIST changes: +diphenhydrAMINE 50MG/ML VIAL IV PRN
[2024-09-10] MEDS: ACETAMINOPHEN *IV* 1,000 MG in IV 1 EA IV ONE (08:21)
[2024-09-10] MEDS: ONDANSETRON 4MG 2ML VIAL IV ONE (08:43)
[2024-09-10] MEDS: diphenhydrAMINE 50MG/ML VIAL IV ONE (08:43)
[2024-09-10] MEDS: IMMUNE GLOBULIN 10% 40 GM in IV 1 EA IV ONE (09:25)
[2024-09-10 10:00] VITALS: BP 86/50; O2SAT 99
[2024-09-10 10:30] VITALS: BP 88/49; O2SAT 100
[2024-09-10 11:00] VITALS: BP 90/51; O2SAT 100
[2024-09-10 13:00] VITALS: BP 89/52; O2SAT 100
[2024-09-10] MEDS: NS 1,000 ML IV ONE (14:08)
[2024-09-10 15:29] VITALS: BP 98/57; O2SAT 100
== END 2024-09-10 15:36 ==
LOC: M INFU 08:00
PROVIDERS: ATTEND Internal Medicine Infectious Disease
DX: G90.9 Disorder of the autonomic nervous system, unspecified (principal); G99.0 Autonomic neuropathy in diseases classified elsewhere; Z88.8 Allergy status to other drugs, medicaments and biological substances; Z88.1 Allergy status to other antibiotic agents
CPT/HCPCS: 96361; 96365; 96366; 96375; J0131; J1100; J1200; J1459; J2405

== ENCOUNTER → 2024-09-17 | Outpatient (CLI) | payer MEDICARE, BC ==
[~2024-09-17] MED LIST changes: -diphenhydrAMINE 50MG/ML VIAL IV PRN
[2024-09-17 09:35] LABS: BASO % 0.6 % (0.0-1.0); EOS # 0.1 10^3/uL (0.0-0.5); HEMATOCRIT 32.7 % (36.0-47.0); HEMOGLOBIN 11.5 g/dl (12.0-15.5); LYMPH # 1.3 10^3/uL (1.5-5.0); LYMPH % 25.9 % (24.0-44.0); MEAN CORPUSCULAR HEMOGLOBIN 32.1 pg (27.0-33.0); MEAN CORPUSCULAR HGB CONC 35.2 g/dl (32.0-36.5); MEAN CORPUSCULAR VOLUME 91.3 fl (80.0-96.0); MONO # 0.3 10^3/uL (0.0-0.8); MONO % 6.3 % (2.0-8.0); NEUTROPHILS # 3.3 10^3/uL (1.5-8.5); NEUTROPHILS % 64.8 % (36.0-66.0); PLATELET COUNT, AUTOMATED 158 10^3/uL (150-450); RED BLOOD COUNT 3.58 10^6/uL (4.00-5.40); WHITE BLOOD COUNT 5.1 10^3/uL (4.0-10.0)
[2024-09-17 10:53] LABS: ALBUMIN 3.2 G/DL (3.2-5.2); ALKALINE PHOSPHATASE 57 U/L (35-104); ALT/SGPT 18 U/L (7.0-40); AST/SGOT 26 U/L (<34); BILIRUBIN,TOTAL 0.3 MG/DL (0.3-1.2); BLOOD UREA NITROGEN 20 MG/DL (9-23); CALCIUM LEVEL 9.6 MG/DL (8.5-10.1); CARBON DIOXIDE LEVEL 28 MMOL/L (20-31); CHLORIDE LEVEL 107 MMOL/L (98-107); CREATININE FOR GFR 0.54 MG/DL (0.55-1.30); GLOMERULAR FILTRATION RATE > 60.0 (>60); GLUCOSE, FASTING 87 MG/DL (60-100); POTASSIUM SERUM 4.1 MMOL/L (3.5-5.1); SODIUM LEVEL 140 MMOL/L (136-145); TOTAL PROTEIN 8.3 G/DL (5.7-8.2); TRIGLYCERIDES LEVEL 55 MG/DL (<150)
== END ==
LOC: M LAB 07:56
PROVIDERS: ATTEND Internal Medicine Gastroenterology
DX: K31.84 Gastroparesis (principal); E46 Unspecified protein-calorie malnutrition; Z79.899 Other long term (current) drug therapy; Q79.60 Ehlers-Danlos syndrome, unspecified

== ENCOUNTER → 2024-09-17 | Outpatient (CLI) | payer MEDICARE, BC ==
[~2024-09-17] MED LIST changes: +ACETAMINOPHEN 325 MG TAB PO PRN; +ISOVUE-370 76% 100ML VIAL As Ordered ONE; +LIDOCAINE 1% MDV 20ML VIAL As Ordered ONE; +MIDAZOLAM INJ 2MG/2ML VIAL As Ordered ONE; +TRIAMCINOLONE ACETONIDE SUSP 40MG/ML 1ML VIAL As Ordered ONE; +fentaNYL 100 MCG/2 ML INJECTION As Ordered ONE
[2024-09-17 08:15] VITALS: TEMP 97.4
[2024-09-17] MEDS: NS 500 ML IV SCH (09:30)
[2024-09-17] MEDS: TRIAMCINOLONE ACETONIDE SUSP 40MG/ML 1ML VIAL XX ONE (09:45)
[2024-09-17] MEDS: SODIUM CHLORIDE 0.9% INJ 10 ML SYR IV PRN (10:29)
[2024-09-17 12:10] VITALS: BP 102/60; O2SAT 100
== END ==
LOC: M IRPRO 07:49
PROVIDERS: ATTEND Radiology Diagnostic Radiology
DX: Q79.60 Ehlers-Danlos syndrome, unspecified (principal); K31.84 Gastroparesis; E46 Unspecified protein-calorie malnutrition; Z79.899 Other long term (current) drug therapy
CPT/HCPCS: 36415; 64530; 77012; 80053; 82306; 83735; 84100; 84478; 85025; 99152; 99153; J0665; J1642; J2250; J3010; J3301; Q9967

== ENCOUNTER 2024-09-23 07:49 | Outpatient (CLI) | payer MEDICARE, BC ==
[~2024-09-23] VITALS: Ht 172.7 cm; Wt 47.7 kg
[~2024-09-23 07:49] MED LIST changes: -ACETAMINOPHEN 325 MG TAB PO PRN; -ISOVUE-370 76% 100ML VIAL As Ordered ONE; -LIDOCAINE 1% MDV 20ML VIAL As Ordered ONE; -MIDAZOLAM INJ 2MG/2ML VIAL As Ordered ONE; -MIDO2.5T PO; +MIDO2.5T3 PO; -TRIAMCINOLONE ACETONIDE SUSP 40MG/ML 1ML VIAL As Ordered ONE; -fentaNYL 100 MCG/2 ML INJECTION As Ordered ONE
[2024-09-23 08:00] VITALS: BP 112/73; O2SAT 99
[2024-09-23] MEDS ORDERED: diphenhydrAMINE 50MG/ML VIAL IV PRN (08:15)
[2024-09-23] MEDS: ACETAMINOPHEN *IV* 1,000 MG in IV 1 EA IV ONE (08:19)
[2024-09-23] MEDS: ONDANSETRON 4MG 2ML VIAL IV ONE (08:20)
[2024-09-23] MEDS: diphenhydrAMINE 50MG/ML VIAL IV ONE (08:20)
[2024-09-23] MEDS: IMMUNE GLOBULIN 10% 40 GM in IV 1 EA IV ONE (09:15)
[2024-09-23 09:45] VITALS: BP 107/59; O2SAT 98
[2024-09-23 10:15] VITALS: BP 109/60; O2SAT 98
[2024-09-23 10:45] VITALS: BP 106/61; O2SAT 100
[2024-09-23 11:45] VITALS: BP 111/60; O2SAT 100
[2024-09-23] MEDS: NS 1,000 ML IV ONE (13:44)
[2024-09-23 14:54] VITALS: BP 107/62; O2SAT 100
== END 2024-09-23 15:00 | disposition home or self-care (01) ==
LOC: M INFU 07:49
PROVIDERS: ATTEND Internal Medicine Infectious Disease
DX: G90.9 Disorder of the autonomic nervous system, unspecified (principal); G99.0 Autonomic neuropathy in diseases classified elsewhere; Z88.8 Allergy status to other drugs, medicaments and biological substances
CPT/HCPCS: 96361; 96365; 96366; 96375; J0131; J1100; J1200; J1459; J2405

== ENCOUNTER 2024-10-01 11:00 | Outpatient (CLI) | payer MEDICARE, BC ==
[2024-10-01 11:30] LABS: BASO % 0.3 % (0.0-1.0); EOS # 0.1 10^3/uL (0.0-0.5); EOS % 1.5 % (0.0-3.0); HEMATOCRIT 35.3 % (36.0-47.0); HEMOGLOBIN 11.7 g/dl (12.0-15.5); LYMPH # 1.4 10^3/uL (1.5-5.0); LYMPH % 20.9 % (24.0-44.0); MEAN CORPUSCULAR HEMOGLOBIN 31.5 pg (27.0-33.0); MEAN CORPUSCULAR HGB CONC 33.1 g/dl (32.0-36.5); MEAN CORPUSCULAR VOLUME 94.9 fl (80.0-96.0); MONO # 0.6 10^3/uL (0.0-0.8); MONO % 9.3 % (2.0-8.0); NEUTROPHILS # 4.6 10^3/uL (1.5-8.5); NEUTROPHILS % 67.7 % (36.0-66.0); PLATELET COUNT, AUTOMATED 183 10^3/uL (150-450); RED BLOOD COUNT 3.72 10^6/uL (4.00-5.40); WHITE BLOOD COUNT 6.9 10^3/uL (4.0-10.0)
[2024-10-01 11:59] LABS: ALBUMIN 3.1 G/DL (3.2-5.2); ALKALINE PHOSPHATASE 53 U/L (35-104); ALT/SGPT 19 U/L (7.0-40); AST/SGOT 16 U/L (<34); BILIRUBIN,TOTAL 0.3 MG/DL (0.3-1.2); BLOOD UREA NITROGEN 16 MG/DL (9-23); CALCIUM LEVEL 9.2 MG/DL (8.5-10.1); CARBON DIOXIDE LEVEL 28 MMOL/L (20-31); CHLORIDE LEVEL 107 MMOL/L (98-107); CREATININE FOR GFR 0.61 MG/DL (0.55-1.30); GLOMERULAR FILTRATION RATE > 60.0 (>60); GLUCOSE, FASTING 62 MG/DL (60-100); PHOSPHORUS LEVEL 3.1 MG/DL (2.5-4.9); POTASSIUM SERUM 3.9 MMOL/L (3.5-5.1); SODIUM LEVEL 139 MMOL/L (136-145); TRIGLYCERIDES LEVEL 85 MG/DL (<150)
== END 2024-10-01 11:20 ==
LOC: M INFU 11:00
PROVIDERS: ATTEND Nurse Practitioner Adult Health
DX: Z48.01 Encounter for change or removal of surgical wound dressing (principal); Z79.899 Other long term (current) drug therapy

== ENCOUNTER 2024-10-07 07:00 | Outpatient (CLI) | payer MEDICARE, BC ==
[2024-10-07] VITALS (7 sets, daily range): BP systolic 93–110; BP diastolic 51–65; O2SAT 97–100
[~2024-10-07 07:00] MED LIST changes: +diphenhydrAMINE 50MG/ML VIAL IV PRN
[2024-10-07] MEDS: ACETAMINOPHEN *IV* 1,000 MG in IV 1 EA IV ONE (07:16)
[2024-10-07] MEDS: diphenhydrAMINE 50MG/ML VIAL IV ONE (07:29)
[2024-10-07] MEDS: ONDANSETRON 4MG 2ML VIAL IV ONE (07:29)
[2024-10-07] MEDS: IMMUNE GLOBULIN 10% 40 GM in IV 1 EA IV ONE (08:09)
[2024-10-07] MEDS: NS 1,000 ML IV ONE (12:50)
== END 2024-10-07 14:00 ==
LOC: M INFU 07:00
PROVIDERS: ATTEND Internal Medicine Infectious Disease
DX: G90.9 Disorder of the autonomic nervous system, unspecified (principal); G99.0 Autonomic neuropathy in diseases classified elsewhere; Z88.8 Allergy status to other drugs, medicaments and biological substances
CPT/HCPCS: 96361; 96365; 96366; 96367; 96375; J0131; J1100; J1200; J1459; J2405

== ENCOUNTER → 2024-10-09 | Outpatient (REF) | payer MEDICARE, BC ==
[~2024-10-09] MED LIST changes: -diphenhydrAMINE 50MG/ML VIAL IV PRN
[2024-10-09 11:03] LABS: APPEARANCE, URINE TURBID (CLEAR); BACTERIA, URINE AUTO NEGATIVE (NEGATIVE); BILIRUBIN, URINE AUTO NEGATIVE (NEGATIVE); BLOOD, URINE BLOOD 1+ (NEGATIVE); COLOR, URINE AMBER (YELLOW); GLUCOSE, URINE (UA) AUTO NEGATIVE (NEGATIVE); KETONE, URINE AUTO NEGATIVE (NEGATIVE); LEUKOCYTE ESTERASE, URINE AUTO 3+ (NEGATIVE); MUCUS, URINE MODERATE (NEGATIVE); NITRITE, URINE AUTO NEGATIVE (NEGATIVE); PROTEIN, URINE AUTO 2+ mg/dL (NEGATIVE); RBC, URINE AUTO 7 /HPF (0-3); SPECIFIC GRAVITY URINE AUTO 1.021 (1.002-1.035); SQUAMOUS EPITHELIAL CELL UR AU 0 /HPF (0-6); UROBILINOGEN, URINE AUTO 0.2 mg/dL (0.0-2.0); WBC, URINE AUTO TNTC /HPF (0-3)
== END ==
LOC: M LAB REF 10:12
PROVIDERS: ATTEND Physician Assistant
DX: N30.01 Acute cystitis with hematuria (principal)

== ENCOUNTER → 2024-10-15 | Outpatient (CLI) | payer MEDICARE, BC ==
[~2024-10-15] MED LIST changes: +ISOVUE-300 61% 100ML VIAL As Ordered ONE; +LIDOCAINE 1% MDV 20ML VIAL As Ordered ONE; +LIDOCAINE 2% JELLY 6ML SYRINGE As Ordered ONE; +MIDAZOLAM INJ 2MG/2ML VIAL As Ordered ONE; +NS 1,000 ML IV SCH; +fentaNYL 100 MCG/2 ML INJECTION As Ordered ONE
[2024-10-15 10:39] VITALS: TEMP 96.9
[2024-10-15 13:15] VITALS: BP 105/57; O2SAT 100
== END ==
LOC: M IRPRO 10:28
PROVIDERS: ATTEND Radiology Diagnostic Radiology
DX: Z93.4 Other artificial openings of gastrointestinal tract status (principal)
CPT/HCPCS: 49451; 99152; C1729; J2250; J3010; Q9967

== ENCOUNTER 2024-10-21 07:50 | Outpatient (CLI) | payer MEDICARE, BC ==
[~2024-10-21] VITALS: Ht 172.7 cm; Wt 47.7 kg
[2024-10-21 07:50] VITALS: BP 114/56; O2SAT 100
[~2024-10-21 07:50] MED LIST changes: -LEVA1.2519 INH; +LEVA1.2526 INH; -LORA1TAB23 PO; -RIME75TA PO; -ZOLO100T PO; +diphenhydrAMINE 50MG/ML VIAL IV PRN
[2024-10-21] MEDS ORDERED: ACETAMINOPHEN *IV* 1,000 MG in IV 1 EA IV ONE (08:00)
[2024-10-21] MEDS ORDERED: diphenhydrAMINE 50MG/ML VIAL IV ONE (08:00)
[2024-10-21] MEDS ORDERED: ONDANSETRON 4MG 2ML VIAL IV ONE (08:00)
[2024-10-21] MEDS ORDERED: diphenhydrAMINE 50MG/ML VIAL IV PRN (08:00)
[2024-10-21] MEDS: ACETAMINOPHEN *IV* 1,000 MG in IV 1 EA IV ONE (08:04)
[2024-10-21] MEDS: ONDANSETRON 4MG 2ML VIAL IV ONE (08:05)
[2024-10-21] MEDS: diphenhydrAMINE 50MG/ML VIAL IV ONE (08:05)
[2024-10-21] MEDS: IMMUNE GLOBULIN 10% 40 GM in IV 1 EA IV ONE (09:12)
[2024-10-21 09:45] VITALS: BP 91/55; O2SAT 100
[2024-10-21 10:15] VITALS: BP 100/61; O2SAT 100
[2024-10-21 10:45] VITALS: BP 115/70; O2SAT 100
[2024-10-21 12:45] VITALS: BP 97/53; O2SAT 100
[2024-10-21] MEDS: NS 1,000 ML IV SCH (13:15)
[2024-10-21 15:00] VITALS: BP 101/55; O2SAT 100
[2024-10-22] MEDS ORDERED: ZOLO100T PO (08:52)
[2024-10-22] MEDS ORDERED: LORA1TAB23 PO (08:52)
[2024-10-22] MEDS ORDERED: RIME75TA PO (08:52)
== END 2024-10-21 15:00 ==
LOC: M INFU 07:50
PROVIDERS: ATTEND Internal Medicine Infectious Disease
DX: G90.9 Disorder of the autonomic nervous system, unspecified (principal); G99.0 Autonomic neuropathy in diseases classified elsewhere; Z88.8 Allergy status to other drugs, medicaments and biological substances; Z88.1 Allergy status to other antibiotic agents; K31.84 Gastroparesis; Q79.60 Ehlers-Danlos syndrome, unspecified; E46 Unspecified protein-calorie malnutrition; Z79.899 Other long term (current) drug therapy

== ENCOUNTER → 2024-10-21 | Outpatient (CLI) | payer MEDICARE, BC ==
[~2024-10-21] MED LIST changes: -ISOVUE-300 61% 100ML VIAL As Ordered ONE; -LIDOCAINE 1% MDV 20ML VIAL As Ordered ONE; -LIDOCAINE 2% JELLY 6ML SYRINGE As Ordered ONE; +LORA1TAB23 PO; -MIDAZOLAM INJ 2MG/2ML VIAL As Ordered ONE; -NS 1,000 ML IV SCH; +RIME75TA PO; +ZOLO100T PO; -fentaNYL 100 MCG/2 ML INJECTION As Ordered ONE
[2024-10-21 15:47] LABS: BASO % 0.2 % (0.0-1.0); EOS % 0.5 % (0.0-3.0); HEMATOCRIT 37.8 % (36.0-47.0); HEMOGLOBIN 12.5 g/dl (12.0-15.5); LYMPH # 1.2 10^3/uL (1.5-5.0); LYMPH % 27.6 % (24.0-44.0); MEAN CORPUSCULAR HGB CONC 33.1 g/dl (32.0-36.5); MEAN CORPUSCULAR VOLUME 96.7 fl (80.0-96.0); MONO # 0.2 10^3/uL (0.0-0.8); MONO % 4.5 % (2.0-8.0); NEUTROPHILS # 2.9 10^3/uL (1.5-8.5); NEUTROPHILS % 67.2 % (36.0-66.0); PLATELET COUNT, AUTOMATED 195 10^3/uL (150-450); RED BLOOD COUNT 3.91 10^6/uL (4.00-5.40); WHITE BLOOD COUNT 4.2 10^3/uL (4.0-10.0)
[2024-10-21 16:15] LABS: ALKALINE PHOSPHATASE 54 U/L (35-104); ALT/SGPT 20 U/L (7.0-40); AST/SGOT 25 U/L (<34); BILIRUBIN,TOTAL 0.2 MG/DL (0.3-1.2); BLOOD UREA NITROGEN 23 MG/DL (9-23); CALCIUM LEVEL 8.7 MG/DL (8.5-10.1); CARBON DIOXIDE LEVEL 26 MMOL/L (20-31); CHLORIDE LEVEL 106 MMOL/L (98-107); CREATININE FOR GFR 0.68 MG/DL (0.55-1.30); GLOMERULAR FILTRATION RATE > 60.0 (>60); GLUCOSE, FASTING 95 MG/DL (60-100); MAGNESIUM LEVEL 1.7 MG/DL (1.8-2.4); PHOSPHORUS LEVEL 3.5 MG/DL (2.5-4.9); POTASSIUM SERUM 3.9 MMOL/L (3.5-5.1); SODIUM LEVEL 139 MMOL/L (136-145); TOTAL PROTEIN 9.4 G/DL (5.7-8.2); TRIGLYCERIDES LEVEL 48 MG/DL (<150)
[2024-10-21 16:18] LABS: TOTAL 25(OH) VITAMIN D 19.6 NG/ML (20.0-100.0)
== END ==
LOC: M LAB 15:10
PROVIDERS: ATTEND Internal Medicine Gastroenterology
DX: K31.84 Gastroparesis (principal); Q79.60 Ehlers-Danlos syndrome, unspecified; E46 Unspecified protein-calorie malnutrition; Z79.899 Other long term (current) drug therapy

== ENCOUNTER 2024-11-12 19:01 | Inpatient (IN) | payer MEDICARE, BC, MEDICAID ==
[~2024-11-12] VITALS: Ht 172.7 cm; Wt 49.7 kg
[~2024-11-12 19:01] MED LIST changes: -ADV500INH INH; +ADVA1AER10 INH; -AMIT24CA7 PO; +BUPR1SUB5 SL; +LORA1TAB23 PO; +LUBI24CA32 PO; +METO1TAB87 PO; +MORP1SOL4 PO; +OLAN5ZYD SL; +PROV10TA PO; +RIME75TA PO; +ZOLO100T PO; -diphenhydrAMINE 50MG/ML VIAL IV PRN
[2024-11-12] MEDS ORDERED: ONDANSETRON 4MG 2ML VIAL As Ordered ONE (19:29)
[2024-11-12] MEDS: ONDANSETRON 4MG 2ML VIAL IV ONE (19:33)
[2024-11-12] MEDS: HYDROMORPHONE HCL 0.5 MG/ 0.5 ML SYRINGE IV PRN ×2 (19:33→22:04)
[2024-11-12] MEDS: NS 500 ML IV ONE (19:33)
[2024-11-12 19:54] LABS: KETONE, URINE AUTO RFX NEGATIVE (NEGATIVE); LEUKOCYTE ESTERASE UR AUTO RFX 3+ (NEGATIVE); MUCUS, URINE RFX MODERATE (NEGATIVE); NITRITE, URINE AUTO RFX NEGATIVE (NEGATIVE); RBC, URINE AUTO RFX 153 /HPF (0-3); SQUAM EPITHELIAL CELL UR AURFX 1 /HPF (0-6); WBC, URINE AUTO RFX TNTC /HPF (0-3)
[2024-11-12 20:04] LABS: HEMATOCRIT 35.5 % (36.0-47.0); HEMOGLOBIN 11.5 g/dl (12.0-15.5); MEAN CORPUSCULAR HEMOGLOBIN 30.9 pg (27.0-33.0); MEAN CORPUSCULAR HGB CONC 32.4 g/dl (32.0-36.5); MEAN CORPUSCULAR VOLUME 95.4 fl (80.0-96.0); PLATELET COUNT, AUTOMATED 209 10^3/uL (150-450); RED BLOOD COUNT 3.72 10^6/uL (4.00-5.40); WHITE BLOOD COUNT 1.2 10^3/uL (4.0-10.0)
[2024-11-12] MEDS: diphenhydrAMINE 50MG/ML VIAL IV STA (20:18)
[2024-11-12 20:27] LABS: LIPASE 68 U/L (12-53)
[2024-11-12 20:29] LABS: ALBUMIN 3.7 G/DL (3.2-5.2); ALKALINE PHOSPHATASE 111 U/L (35-104); ALT/SGPT 185 U/L (7.0-40); AST/SGOT 104 U/L (<34); BILIRUBIN,TOTAL 1.6 MG/DL (0.3-1.2); BLOOD UREA NITROGEN 24 MG/DL (9-23); C REACTIVE PROTEIN QUANTITATIV < 0.50 MG/DL (<1.0); CARBON DIOXIDE LEVEL 17 MMOL/L (20-31); CHLORIDE LEVEL 109 MMOL/L (98-107); CREATININE FOR GFR 0.78 MG/DL (0.55-1.30); GLOMERULAR FILTRATION RATE > 60.0 (>60); GLUCOSE, FASTING 65 MG/DL (60-100); POTASSIUM SERUM 3.6 MMOL/L (3.5-5.1); SODIUM LEVEL 140 MMOL/L (136-145); TOTAL PROTEIN 7.8 G/DL (5.7-8.2)
[2024-11-12 20:36] LABS: PROCALCITONIN 0.33 ng/ml
[2024-11-12 20:40] LABS: ATYPICAL LYMPH 1 % (0-5); LYMPHOCYTES 28 % (16-44); NEUTROPHILS 68 % (28-66); PLATELET ESTIMATE NORMAL (NORMAL); TOXIC VACUOLATION 3+
[2024-11-12 21:02] LABS: Trichomonas vaginalis (AMP) NOT DETECTED (NEGATIVE)
[2024-11-12] MEDS: NS (Normal Saline) 0.9% 1,000 ML IV ONE (21:16)
[2024-11-12 21:26] LABS: GC DNA AMPLIFICATION NEGATIVE (NEGATIVE)
[2024-11-12 21:32] LABS: HCG, SERUM QUALITATIVE NEGATIVE (NEGATIVE)
[2024-11-12] MEDS: LevoFLOXacin IV 750 MG in IV 1 EA IV ONE (21:48)
[2024-11-12] MEDS ORDERED: HOME MED LIST COMPLETE! XX SCH (22:10)
[2024-11-12] MEDS ORDERED: MORPHINE 2 MG/ML 1ML VIAL IV PRN (23:55)
[2024-11-12] MEDS ORDERED: ACETAMINOPHEN 325 MG TAB PO PRN (23:55)
[2024-11-12] MEDS ORDERED: MOM 30ML SUSPENSION UDC PO PRN (23:55)
[2024-11-12] MEDS: LR 1,000 ML IV ONE (23:55)
[2024-11-13] VITALS (97 sets, daily range): BP systolic 53–93; BP diastolic 22–67; TEMP 98.6–102; O2SAT 87–100
[2024-11-13] MEDS ORDERED: SUMAtriptan SUCCINATE 25MG TABLET PO PRN (00:25)
[2024-11-13] MEDS ORDERED: LORazepam 1 MG TAB PO PRN (00:25)
[2024-11-13] MEDS ORDERED: FLEET ENEMA PR PRN (00:25)
[2024-11-13] MEDS: OLANZapine ORAL DISINTEGRATING TAB 5MG SL SCH (00:38)
[2024-11-13] MEDS: NYSTATIN CREAM 15GM TOP SCH (00:38)
[2024-11-13] MEDS: FAMOTIDINE 20 MG TAB PO SCH (00:38)
[2024-11-13] MEDS: ADVAIR HFA 230/21MCG INHALER INH SCH (00:39)
[2024-11-13] MEDS: HYDROMORPHONE HCL 0.5 MG/ 0.5 ML SYRINGE IV PRN (00:46)
[2024-11-13 00:58] LABS: MAGNESIUM LEVEL 1.4 MG/DL (1.8-2.4)
[2024-11-13] MEDS: NS 500 ML IV ONE (02:34)
[2024-11-13] MEDS: MAG SULF 1GM/100ML (MAG RUN) 1 GM in IV 1 EA IV SCH (03:00)
[2024-11-13] MEDS ORDERED: ISOVUE-370 76% 100ML VIAL As Ordered ONE (03:50)
[2024-11-13] MEDS ORDERED: KETOROLAC 30 MG/ML 1ML VIAL IV ONE (04:00)
[2024-11-13 04:07] LABS: HEMATOCRIT 37.6 % (36.0-47.0); HEMOGLOBIN 12.1 g/dl (12.0-15.5); MEAN CORPUSCULAR HEMOGLOBIN 30.9 pg (27.0-33.0); MEAN CORPUSCULAR HGB CONC 32.2 g/dl (32.0-36.5); MEAN CORPUSCULAR VOLUME 95.9 fl (80.0-96.0); RED BLOOD COUNT 3.92 10^6/uL (4.00-5.40); WHITE BLOOD COUNT 10.3 10^3/uL (4.0-10.0)
[2024-11-13] MEDS: ACETAMINOPHEN *IV* 1,000 MG in IV 1 EA IV ONE (04:12)
[2024-11-13] MEDS: LR 1,000 ML IV ONE (04:18)
[2024-11-13 04:23] LABS: PLATELET COUNT, AUTOMATED 72 10^3/uL (150-450)
[2024-11-13 04:56] LABS: LYMPHOCYTES 8 % (16-44); METAMYELOCYTES 1 % (0-0); NEUTROPHILS 89 % (28-66)
[2024-11-13 04:57] LABS: PLATELET ESTIMATE DECREASED (NORMAL)
[2024-11-13] MEDS: NOREPINEPHRINE 4MG IN D5 250ML 4 MG in IV 1 EA IV SCH ×2 (05:14→12:37)
[2024-11-13] MEDS: VASOPRESSIN IN 0.9 % NACL 20 UNIT in IV 1 EA IV SCH (05:15)
[2024-11-13 05:28] LABS: C REACTIVE PROTEIN QUANTITATIV 2.69 MG/DL (<1.0)
[2024-11-13 05:50] LABS: ALBUMIN 2.6 G/DL (3.2-5.2); ALKALINE PHOSPHATASE 124 U/L (35-104); ALT/SGPT 153 U/L (7.0-40); AST/SGOT 115 U/L (<34); BILIRUBIN,TOTAL 2.8 MG/DL (0.3-1.2); BLOOD UREA NITROGEN 34 MG/DL (9-23); CALCIUM LEVEL 8.4 MG/DL (8.5-10.1); CARBON DIOXIDE LEVEL 21 MMOL/L (20-31); CHLORIDE LEVEL 110 MMOL/L (98-107); CREATININE FOR GFR 1.88 MG/DL (0.55-1.30); GLOMERULAR FILTRATION RATE 35.3 (>60); GLUCOSE, FASTING 13 MG/DL (60-100); POTASSIUM SERUM 3.5 MMOL/L (3.5-5.1); PROCALCITONIN >50.00 ng/ml; SODIUM LEVEL 142 MMOL/L (136-145); TOTAL PROTEIN 6.2 G/DL (5.7-8.2)
[2024-11-13] MEDS ORDERED: DEXTROSE 50% 50ML SYRINGE As Ordered ONE (05:53)
[2024-11-13] MEDS: DEXTROSE 50% 50ML SYRINGE IV STA (05:56)
[2024-11-13] MEDS: PREGABALIN 75 MG CAP(LYRICA) PO SCH (06:00)
[2024-11-13] MEDS: LR 1,000 ML IV STA (07:17)
[2024-11-13] MEDS: MEROPENEM INJ 2 GM in NS 100 ML IV SCH (07:17)
[2024-11-13] MEDS: PHENYLEPHRINE HCL INJ 50 MG in D5W 495 ML IV SCH ×2 (07:17→13:03)
[2024-11-13] MEDS: medroxyPROGESTERone 5MG TABLET PO SCH (09:40)
[2024-11-13] MEDS: BUPRENORPHINE/NALOXONE 8-2MG SUBLINGUAL TABLET(SUBOXONE) SL SCH (09:40)
[2024-11-13] MEDS: SERTRALINE 100 MG TAB PO SCH (09:40)
[2024-11-13] MEDS: ACETAMINOPHEN *IV* 1,000 MG in IV 1 EA IV PRN (11:55)
[2024-11-13] MEDS: LR 1,000 ML IV SCH (12:02)
[2024-11-13 12:32] LABS: ALBUMIN 2.3 G/DL (3.2-5.2); BILIRUBIN,TOTAL 3.4 MG/DL (0.3-1.2); CALCIUM LEVEL 7.8 MG/DL (8.5-10.1); CREATININE FOR GFR 2.62 MG/DL (0.55-1.30); FREE T4 1.19 NG/DL (0.89-1.76); GLOMERULAR FILTRATION RATE 24.1 (>60); PHOSPHORUS LEVEL 3.5 MG/DL (2.5-4.9); POTASSIUM SERUM 4.3 MMOL/L (3.5-5.1); THYROID STIMULATING HORMONE 5.345 uIU/ML (0.55-4.78); TOTAL PROTEIN 5.9 G/DL (5.7-8.2)
[2024-11-13] MEDS ORDERED: PHENYLEPHRINE HCL INJ 50 MG in D5W 495 ML IV SCH (13:00)
[2024-11-13 13:16] LABS: BASO % 0.3 % (0.0-1.0); EOS # 0.1 10^3/uL (0.0-0.5); EOS % 0.6 % (0.0-3.0); HEMATOCRIT 38.2 % (36.0-47.0); HEMOGLOBIN 12.2 g/dl (12.0-15.5); LYMPH # 0.9 10^3/uL (1.5-5.0); LYMPH % 6.2 % (24.0-44.0); MEAN CORPUSCULAR HEMOGLOBIN 30.9 pg (27.0-33.0); MEAN CORPUSCULAR HGB CONC 31.9 g/dl (32.0-36.5); MEAN CORPUSCULAR VOLUME 96.7 fl (80.0-96.0); MONO # 0.1 10^3/uL (0.0-0.8); MONO % 0.5 % (2.0-8.0); NEUTROPHILS # 13.3 10^3/uL (1.5-8.5); NEUTROPHILS % 91.4 % (36.0-66.0); PLATELET COUNT, AUTOMATED 107 10^3/uL (150-450); RED BLOOD COUNT 3.95 10^6/uL (4.00-5.40); WHITE BLOOD COUNT 14.6 10^3/uL (4.0-10.0)
[2024-11-13] MEDS: SODIUM BICARBONATE 150 MEQ in D5W 1,000 ML IV SCH (15:29)
[2024-11-13] MEDS: HYDROCORTISONE 100MG/2ML VIAL IV ONE (17:06)
[2024-11-13] MEDS: ONDANSETRON 4MG 2ML VIAL IV PRN (18:07)
[2024-11-13] MEDS: diphenhydrAMINE 50MG/ML VIAL IV ONE ×2 (18:07→22:25)
[2024-11-13] MEDS: MEROPENEM INJ 1 GM in IV 1 EA IV SCH ×2 (18:08)
[2024-11-13] MEDS: PHENTOLAMINE MESYLATE 5 MG SC ONE (18:08)
[2024-11-13 19:12] LABS: ALBUMIN 1.9 G/DL (3.2-5.2); BILIRUBIN,TOTAL 3.6 MG/DL (0.3-1.2); CALCIUM LEVEL 6.7 MG/DL (8.5-10.1); CREATININE FOR GFR 3.09 MG/DL (0.55-1.30); GLOMERULAR FILTRATION RATE 19.9 (>60); MAGNESIUM LEVEL 1.8 MG/DL (1.8-2.4); PHOSPHORUS LEVEL 3.9 MG/DL (2.5-4.9); POTASSIUM SERUM 4.5 MMOL/L (3.5-5.1); TOTAL PROTEIN 4.8 G/DL (5.7-8.2)
[2024-11-13] MEDS ORDERED: CIPROFLOXACIN 400 MG in IV 1 EA IV SCH (20:00)
[2024-11-13] MEDS: SODIUM CHLORIDE 3% 500 ML IV ONE (21:22)
[2024-11-13] MEDS ORDERED: LevoFLOXacin IV 750 MG in IV 1 EA IV SCH (22:00)
[2024-11-13] MEDS: MAALOX 30 ML SUSP *UDC PO PRN (22:25)
[2024-11-13] MEDS: DICYCLOMINE INJ 20MG/2ML IM PRN (22:26)
[2024-11-14] VITALS (92 sets, daily range): BP systolic 73–114; BP diastolic 38–70; TEMP 99–102.9; O2SAT 78–100
[2024-11-14 02:49] LABS: CREATININE FOR GFR 2.65 MG/DL (0.55-1.30); GLOMERULAR FILTRATION RATE 23.8 (>60); POTASSIUM SERUM 3.4 MMOL/L (3.5-5.1)
[2024-11-14] MEDS: POTASSIUM CHLORIDE 10% LIQ 20MEQ/15ML UDC PO ONE (04:02)
[2024-11-14] MEDS: CALCIUM GLUCONATE 1,000 MG in DEXTROSE 5% (D5W) MINI-BAG PLU 100 ML IV ONE ×2 (04:03→20:38)
[2024-11-14] MEDS: MORPHINE 2 MG/ML 1ML VIAL IV ONE (04:09)
[2024-11-14 05:00] LABS: HEMATOCRIT 33.5 % (36.0-47.0); HEMOGLOBIN 11.9 g/dl (12.0-15.5); MEAN CORPUSCULAR HEMOGLOBIN 30.8 pg (27.0-33.0); MEAN CORPUSCULAR HGB CONC 35.5 g/dl (32.0-36.5); MEAN CORPUSCULAR VOLUME 86.8 fl (80.0-96.0); RED BLOOD COUNT 3.86 10^6/uL (4.00-5.40); WHITE BLOOD COUNT 18.4 10^3/uL (4.0-10.0)
[2024-11-14 05:02] LABS: PLATELET COUNT, AUTOMATED 71 10^3/uL (150-450)
[2024-11-14 05:21] LABS: ALBUMIN 1.8 G/DL (3.2-5.2); BILIRUBIN,TOTAL 4.1 MG/DL (0.3-1.2); CALCIUM LEVEL 6.4 MG/DL (8.5-10.1); CREATININE FOR GFR 2.5 MG/DL (0.55-1.30); GLOMERULAR FILTRATION RATE 25.4 (>60); MAGNESIUM LEVEL 1.5 MG/DL (1.8-2.4); PHOSPHORUS LEVEL 5.2 MG/DL (2.5-4.9); POTASSIUM SERUM 3.6 MMOL/L (3.5-5.1); TOTAL PROTEIN 4.8 G/DL (5.7-8.2)
[2024-11-14 05:35] LABS: HEPATITIS B SURFACE ANTIGEN NEGATIVE (NEGATIVE)
[2024-11-14 05:41] LABS: LYMPHOCYTES 2 % (16-44); METAMYELOCYTES 12 % (0-0); MYELOCYTES 5 % (0-0); NEUTROPHILS 55 % (28-66)
[2024-11-14 05:46] LABS: PLATELET ESTIMATE DECREASED (NORMAL)
[2024-11-14 05:48] LABS: HIV SCREEN CENTAUR SOURCE NEGATIVE (NEGATIVE)
[2024-11-14] MEDS: MAG SULF 1GM/100ML (MAG RUN) 1 GM in IV 1 EA IV SCH (05:53)
[2024-11-14] MEDS ORDERED: SODIUM CHLORIDE 3% 500 ML IV ONE (06:00)
[2024-11-14 08:11] LABS: ABG BASE EXCESS -1.9 (-2.0-2.0); ABG HCO3 19.8 MMOL/L (22.0-26.0); ABG O2 SATURATION 97.4 % (95.0-99.0); ABG PARTIAL PRESSURE CO2 25.8 mmHg (35.0-45.0); ABG STANDARD HCO3 22.9 MMOL/L. (22.0-26.0); ABG TOTAL CO2 20.6 MMOL/L (22.0-29.0); ABG pH (ARTERIAL) 7.503 UNITS (7.350-7.450)
[2024-11-14] MEDS: POTASSIUM CHLORIDE 10% LIQ 20MEQ/15ML UDC PO SCH (08:50)
[2024-11-14] MEDS: NS 500 ML IV ONE ×2 (08:59→10:29)
[2024-11-14] MEDS: HYDROCORTISONE 100MG/2ML VIAL IV SCH (08:59)
[2024-11-14 09:20] LABS: ALBUMIN 1.8 G/DL (3.2-5.2); BILIRUBIN,TOTAL 4.1 MG/DL (0.3-1.2); CALCIUM LEVEL 6.1 MG/DL (8.5-10.1); CREATININE FOR GFR 2.21 MG/DL (0.55-1.30); GLOMERULAR FILTRATION RATE 29.3 (>60); POTASSIUM SERUM 2.7 MMOL/L (3.5-5.1); TOTAL PROTEIN 4.8 G/DL (5.7-8.2)
[2024-11-14] MEDS ORDERED: MIDAZOLAM INJ 2MG/2ML VIAL As Ordered ONE (09:26)
[2024-11-14] MEDS: fentaNYL CITRATE/NaCl 1,000 MCG in IV 1 EA IV SCH (09:43)
[2024-11-14 09:47] LABS: ABG BASE EXCESS -8.1 (-2.0-2.0); ABG HCO3 15.6 MMOL/L (22.0-26.0); ABG O2 SATURATION 99.2 % (95.0-99.0); ABG PARTIAL PRESSURE CO2 27.2 mmHg (35.0-45.0); ABG PARTIAL PRESSURE O2 161.8 mmHg (75.0-100.0); ABG TOTAL CO2 16.4 MMOL/L (22.0-29.0); ABG pH (ARTERIAL) 7.376 UNITS (7.350-7.450)
[2024-11-14] MEDS: KCL 20MEQ IN 100ML SWI (KRUN) 20 MEQ in IV 1 EA IV SCH ×3 (10:04→23:12)
[2024-11-14] MEDS: ETOMIDATE INJ 20MG/10ML VIAL IV STA (10:05)
[2024-11-14] MEDS: SUCCINYLCHOLINE INJ 200MG/10ML VIAL IV STA (10:06)
[2024-11-14] MEDS: MIDAZOLAM 100MG/100ML-0.9%NACL 100 MG in IV 1 EA IV SCH (10:08)
[2024-11-14] MEDS: SODIUM CHLORIDE 3% 100 ML IV STA (10:09)
[2024-11-14] MEDS: MIDAZOLAM INJ 2MG/2ML VIAL IV STA (10:22)
[2024-11-14] MEDS: PANTOPRAZOLE 40MG VIAL IV SCH (10:29)
[2024-11-14 11:28] LABS: SOURCE PERIPHERAL SMEAR
[2024-11-14] MEDS: SODIUM CHLORIDE 3% 500 ML IV ONE ×3 (12:39→21:11)
[2024-11-14] MEDS: PHENYLEPHRINE HCL INJ 50 MG in NS 495 ML IV SCH (12:57)
[2024-11-14] MEDS ORDERED: SODIUM CHLORIDE 3% IV ONE (13:00)
[2024-11-14] MEDS: SODIUM CHLORIDE 3% 150 ML IV ONE (14:14)
[2024-11-14] MEDS: SODIUM CHLORIDE 3% 150 ML IV STA (14:15)
[2024-11-14 14:39] LABS: ABG BASE EXCESS -8.1 (-2.0-2.0); ABG HCO3 15.7 MMOL/L (22.0-26.0); ABG PARTIAL PRESSURE CO2 28.2 mmHg (35.0-45.0); ABG PARTIAL PRESSURE O2 175.6 mmHg (75.0-100.0); ABG STANDARD HCO3 18.1 MMOL/L. (22.0-26.0); ABG TOTAL CO2 16.6 MMOL/L (22.0-29.0); ABG pH (ARTERIAL) 7.364 UNITS (7.350-7.450)
[2024-11-14 15:39] LABS: CALCIUM LEVEL 5.6 MG/DL (8.5-10.1); CREATININE FOR GFR 1.81 MG/DL (0.55-1.30); GLOMERULAR FILTRATION RATE 36.9 (>60); POTASSIUM SERUM 3.4 MMOL/L (3.5-5.1)
[2024-11-14 17:22] LABS: CALCIUM LEVEL 5.5 MG/DL (8.5-10.1); CREATININE FOR GFR 1.68 MG/DL (0.55-1.30); GLOMERULAR FILTRATION RATE 40.2 (>60); POTASSIUM SERUM 3.3 MMOL/L (3.5-5.1)
[2024-11-14] MEDS: POLYVINYL ALCOHOL OPHTH SOLN 15ML (LIQUITEARS) OU SCH (18:32)
[2024-11-14] MEDS: SODIUM BICARBONATE 150 MEQ in STERILE WATER LITER BAG 1,000 ML IV SCH (19:11)
[2024-11-14 19:37] LABS: CALCIUM LEVEL 5.2 MG/DL (8.5-10.1); CREATININE FOR GFR 1.65 MG/DL (0.55-1.30); POTASSIUM SERUM 4.7 MMOL/L (3.5-5.1)
[2024-11-14 20:33] LABS: ALBUMIN 1.7 G/DL (3.2-5.2); BILIRUBIN,DIRECT 4.1 MG/DL (<0.4); BILIRUBIN,TOTAL 5.1 MG/DL (0.3-1.2); TOTAL PROTEIN 4.9 G/DL (5.7-8.2)
[2024-11-14] MEDS ORDERED: SODIUM CHLORIDE 3% 100 ML IV ONE ×2 (20:45)
[2024-11-14] MEDS ORDERED: CALCIUM GLUCONATE 1,000MG/10ML VIAL (100MG/ML) As Ordered ONE (22:23)
[2024-11-14] MEDS: CALCIUM GLUCONATE 1,000 MG, VIAL MATE ADAPTER 1 EACH in NS 100 ML IV ONE (22:31)
[2024-11-14 22:48] LABS: CALCIUM LEVEL 5.6 MG/DL (8.5-10.1); CREATININE FOR GFR 1.53 MG/DL (0.55-1.30); GLOMERULAR FILTRATION RATE 44.8 (>60)
[2024-11-14] MEDS ORDERED: CALCIUM GLUCONATE 1,000 MG in DEXTROSE 5% (D5W) MINI-BAG PLU 100 ML IV ONE (23:00)
[2024-11-14 23:18] LABS: MAGNESIUM LEVEL 1.9 MG/DL (1.8-2.4)
[2024-11-15] VITALS (98 sets, daily range): BP systolic 82–142; BP diastolic 40–87; TEMP 98.4–101.8; O2SAT 82–100
[2024-11-15] MEDS: MAG SULF 1GM/100ML (MAG RUN) 1 GM in IV 1 EA IV ONE ×3 (02:02→20:14)
[2024-11-15 02:16] LABS: CALCIUM LEVEL 5.5 MG/DL (8.5-10.1); CREATININE FOR GFR 1.48 MG/DL (0.55-1.30); GLOMERULAR FILTRATION RATE 46.5 (>60); POTASSIUM SERUM 3.4 MMOL/L (3.5-5.1)
[2024-11-15] MEDS: CALCIUM GLUCONATE 1,000 MG in DEXTROSE 5% (D5W) MINI-BAG PLU 100 ML IV SCH ×2 (02:40→12:20)
[2024-11-15] MEDS: KCL 20MEQ IN 100ML SWI (KRUN) 20 MEQ in IV 1 EA IV SCH ×4 (02:40→20:43)
[2024-11-15 05:32] LABS: HEMATOCRIT 38.6 % (36.0-47.0); HEMOGLOBIN 13.6 g/dl (12.0-15.5); MEAN CORPUSCULAR HEMOGLOBIN 30.6 pg (27.0-33.0); MEAN CORPUSCULAR HGB CONC 35.2 g/dl (32.0-36.5); MEAN CORPUSCULAR VOLUME 86.7 fl (80.0-96.0); RED BLOOD COUNT 4.45 10^6/uL (4.00-5.40)
[2024-11-15] MEDS: CALCIUM GLUCONATE 1,000 MG, VIAL MATE ADAPTER 1 EACH in NS 100 ML IV SCH (05:35)
[2024-11-15 05:41] LABS: WHITE BLOOD COUNT 33.1 10^3/uL (4.0-10.0)
[2024-11-15 05:42] LABS: PLATELET COUNT, AUTOMATED 28 10^3/uL (150-450)
[2024-11-15 05:58] LABS: ALBUMIN 1.6 G/DL (3.2-5.2); BILIRUBIN,TOTAL 5.2 MG/DL (0.3-1.2); CALCIUM LEVEL 6.3 MG/DL (8.5-10.1); CREATININE FOR GFR 1.32 MG/DL (0.55-1.30); GLOMERULAR FILTRATION RATE 53.1 (>60); POTASSIUM SERUM 3.4 MMOL/L (3.5-5.1); TOTAL PROTEIN 4.7 G/DL (5.7-8.2)
[2024-11-15] MEDS: SODIUM CHLORIDE 3% 500 ML IV ONE (05:58)
[2024-11-15 07:09] LABS: FIBRINOGEN 140 MG/DL (268-480); INR 1.59; PARTIAL THROMBOPLASTIN TIME 58.4 SECONDS (24.8-34.2); PROTHROMBIN TIME 19.2 SECONDS (12.5-14.5)
[2024-11-15 07:16] LABS: ATYPICAL LYMPH 6 % (0-5); METAMYELOCYTES 5 % (0-0); MONOCYTES 4 % (0-5); NEUTROPHILS 43 % (28-66)
[2024-11-15 07:18] LABS: PLATELET ESTIMATE MARKED DECREASE (NORMAL)
[2024-11-15 08:04] LABS: D-DIMER QUANT > 20.00 ug/mL (<0.5)
[2024-11-15 08:21] LABS: ABG BASE EXCESS -6.6 (-2.0-2.0); ABG HCO3 17.1 MMOL/L (22.0-26.0); ABG O2 SATURATION 98.9 % (95.0-99.0); ABG PARTIAL PRESSURE CO2 29.3 mmHg (35.0-45.0); ABG PARTIAL PRESSURE O2 167.2 mmHg (75.0-100.0); ABG STANDARD HCO3 19.2 MMOL/L. (22.0-26.0); ABG pH (ARTERIAL) 7.384 UNITS (7.350-7.450)
[2024-11-15] MEDS: AZITHROMYCIN INJ 500 MG, VIAL MATE ADAPTER 1 EACH in NS 250 ML IV SCH (08:40)
[2024-11-15] MEDS: MICAFUNGIN SODIUM 100 MG in DEXTROSE 5% (D5W) MINI-BAG PLU 100 ML IV SCH (08:46)
[2024-11-15] MEDS ORDERED: SODIUM CHLORIDE 3% 500 ML IV SCH (09:07)
[2024-11-15] MEDS ORDERED: SODIUM BICARBONATE IV SCH (10:00)
[2024-11-15] MEDS ORDERED: NS 0.9% IV SCH (10:00)
[2024-11-15 10:25] LABS: BLOOD UREA NITROGEN 27 MG/DL (9-23); CALCIUM LEVEL 5.7 MG/DL (8.5-10.1); CARBON DIOXIDE LEVEL 18 MMOL/L (20-31); CHLORIDE LEVEL 99 MMOL/L (98-107); CREATININE FOR GFR 1.17 MG/DL (0.55-1.30); GLOMERULAR FILTRATION RATE > 60.0 (>60); GLUCOSE, FASTING 118 MG/DL (60-100); POTASSIUM SERUM 3.2 MMOL/L (3.5-5.1); SODIUM LEVEL 129 MMOL/L (136-145)
[2024-11-15] MEDS ORDERED: LIDOCAINE 1% MDV 20ML VIAL As Ordered ONE (11:47)
[2024-11-15] MEDS: SODIUM BICARBONATE IV SCH (12:15)
[2024-11-15] MEDS: NS 0.9% IV SCH (12:15)
[2024-11-15 12:25] LABS: BLOOD UREA NITROGEN 28 MG/DL (9-23); CALCIUM LEVEL 5.5 MG/DL (8.5-10.1); CARBON DIOXIDE LEVEL 20 MMOL/L (20-31); CHLORIDE LEVEL 100 MMOL/L (98-107); CREATININE FOR GFR 1.17 MG/DL (0.55-1.30); GLOMERULAR FILTRATION RATE > 60.0 (>60); GLUCOSE, FASTING 110 MG/DL (60-100); MAGNESIUM LEVEL 1.8 MG/DL (1.8-2.4); POTASSIUM SERUM 2.9 MMOL/L (3.5-5.1); SODIUM LEVEL 131 MMOL/L (136-145)
[2024-11-15 12:40] LABS: PROCALCITONIN 34.02 ng/ml
[2024-11-15] MEDS ORDERED: KCL 10MEQ/100ML SWI (KRUN) 10 MEQ in IV 1 EA IV SCH (13:00)
[2024-11-15] MEDS: KCL 20MEQ IN 100ML SWI (KRUN) 20 MEQ in IV 1 EA IV ONE (13:34)
[2024-11-15] MEDS: MEROPENEM INJ 1 GM in IV 1 EA IV SCH ×2 (14:08→14:39)
[2024-11-15 14:16] LABS: HEMATOCRIT 29.6 % (36.0-47.0); HEMOGLOBIN 10.2 g/dl (12.0-15.5); MEAN CORPUSCULAR HEMOGLOBIN 30.3 pg (27.0-33.0); MEAN CORPUSCULAR HGB CONC 34.5 g/dl (32.0-36.5); MEAN CORPUSCULAR VOLUME 87.8 fl (80.0-96.0); RED BLOOD COUNT 3.37 10^6/uL (4.00-5.40); WHITE BLOOD COUNT 28.7 10^3/uL (4.0-10.0)
[2024-11-15 14:26] LABS: PLATELET COUNT, AUTOMATED 29 10^3/uL (150-450)
[2024-11-15 15:52] LABS: CALCIUM LEVEL 5.5 MG/DL (8.5-10.1); CREATININE FOR GFR 1.19 MG/DL (0.55-1.30); GLOMERULAR FILTRATION RATE 59.8 (>60); MAGNESIUM LEVEL 1.6 MG/DL (1.8-2.4); POTASSIUM SERUM 3.9 MMOL/L (3.5-5.1)
[2024-11-15] MEDS: INSULIN LISPRO (NovoLOG) PER UNIT SC SCH (18:00)
[2024-11-15 18:32] LABS: PLATELET COUNT, AUTOMATED 35 10^3/uL (150-450)
[2024-11-15] MEDS: SODIUM CHLORIDE IV SCH (18:35)
[2024-11-15] MEDS: SODIUM ACETATE IV SCH (18:35)
[2024-11-15] MEDS: [UNRECOGNIZED DRUG - OTHER] IV SCH (18:35)
[2024-11-15 18:51] LABS: BLOOD UREA NITROGEN 29 MG/DL (9-23); CALCIUM LEVEL 5.7 MG/DL (8.5-10.1); CARBON DIOXIDE LEVEL 22 MMOL/L (20-31); CHLORIDE LEVEL 101 MMOL/L (98-107); CREATININE FOR GFR 1.12 MG/DL (0.55-1.30); GLOMERULAR FILTRATION RATE > 60.0 (>60); GLUCOSE, FASTING 132 MG/DL (60-100); POTASSIUM SERUM 3.1 MMOL/L (3.5-5.1); SODIUM LEVEL 133 MMOL/L (136-145)
[2024-11-15 18:51] LABS: EBV PCR QUAL Not Detected (Not Detected); EBV SOURCE QUAL Whole Blood
[2024-11-15 23:28] LABS: BLOOD UREA NITROGEN 28 MG/DL (9-23); CALCIUM LEVEL 5.9 MG/DL (8.5-10.1); CARBON DIOXIDE LEVEL 23 MMOL/L (20-31); CHLORIDE LEVEL 103 MMOL/L (98-107); CREATININE FOR GFR 1.03 MG/DL (0.55-1.30); GLOMERULAR FILTRATION RATE > 60.0 (>60); GLUCOSE, FASTING 219 MG/DL (60-100); MAGNESIUM LEVEL 2.1 MG/DL (1.8-2.4); POTASSIUM SERUM 3.6 MMOL/L (3.5-5.1); SODIUM LEVEL 134 MMOL/L (136-145)
[2024-11-16] VITALS (102 sets, daily range): BP systolic 82–141; BP diastolic 47–88; TEMP 99.1–100.6; O2SAT 88–100
[2024-11-16 00:32] LABS: PLATELET COUNT, AUTOMATED 31 10^3/uL (150-450)
[2024-11-16 02:03] LABS: HEMOGLOBIN 10.4 g/dl (12.0-15.5)
[2024-11-16 02:05] LABS: PLATELET COUNT, AUTOMATED 25 10^3/uL (150-450)
[2024-11-16 02:23] LABS: BLOOD UREA NITROGEN 29 MG/DL (9-23); CALCIUM LEVEL 6.3 MG/DL (8.5-10.1); CARBON DIOXIDE LEVEL 24 MMOL/L (20-31); CHLORIDE LEVEL 105 MMOL/L (98-107); CREATININE FOR GFR 0.96 MG/DL (0.55-1.30); GLOMERULAR FILTRATION RATE > 60.0 (>60); GLUCOSE, FASTING 205 MG/DL (60-100); POTASSIUM SERUM 3.3 MMOL/L (3.5-5.1); SODIUM LEVEL 135 MMOL/L (136-145)
[2024-11-16] MEDS: KCL 20MEQ IN 100ML SWI (KRUN) 20 MEQ in IV 1 EA IV ONE (04:11)
[2024-11-16 05:57] LABS: ABG BASE EXCESS -1.8 (-2.0-2.0); ABG O2 SATURATION 94.6 % (95.0-99.0); ABG PARTIAL PRESSURE CO2 39.4 mmHg (35.0-45.0); ABG PARTIAL PRESSURE O2 75.4 mmHg (75.0-100.0); ABG STANDARD HCO3 22.9 MMOL/L. (22.0-26.0); ABG TOTAL CO2 24.3 MMOL/L (22.0-29.0); ABG pH (ARTERIAL) 7.385 UNITS (7.350-7.450)
[2024-11-16 06:25] LABS: HEMATOCRIT 28.6 % (36.0-47.0); HEMOGLOBIN 9.9 g/dl (12.0-15.5); MEAN CORPUSCULAR HEMOGLOBIN 30.1 pg (27.0-33.0); MEAN CORPUSCULAR HGB CONC 34.6 g/dl (32.0-36.5); MEAN CORPUSCULAR VOLUME 86.9 fl (80.0-96.0); RED BLOOD COUNT 3.29 10^6/uL (4.00-5.40); WHITE BLOOD COUNT 18.2 10^3/uL (4.0-10.0)
[2024-11-16 06:28] LABS: PLATELET COUNT, AUTOMATED 48 10^3/uL (150-450)
[2024-11-16 06:45] LABS: ALBUMIN 1.6 G/DL (3.2-5.2); ALKALINE PHOSPHATASE 140 U/L (35-104); ALT/SGPT 78 U/L (7.0-40); AST/SGOT 123 U/L (<34); BILIRUBIN,TOTAL 7.9 MG/DL (0.3-1.2); BLOOD UREA NITROGEN 29 MG/DL (9-23); CALCIUM LEVEL 6.5 MG/DL (8.5-10.1); CARBON DIOXIDE LEVEL 25 MMOL/L (20-31); CHLORIDE LEVEL 107 MMOL/L (98-107); CREATININE FOR GFR 0.93 MG/DL (0.55-1.30); GLOMERULAR FILTRATION RATE > 60.0 (>60); GLUCOSE, FASTING 160 MG/DL (60-100); MAGNESIUM LEVEL 1.9 MG/DL (1.8-2.4); POTASSIUM SERUM 3.3 MMOL/L (3.5-5.1); SODIUM LEVEL 140 MMOL/L (136-145); TOTAL PROTEIN 3.7 G/DL (5.7-8.2)
[2024-11-16 06:57] LABS: LYMPHOCYTES 3 % (16-44); METAMYELOCYTES 2 % (0-0); MONOCYTES 2 % (0-5); MYELOCYTES 1 % (0-0); NEUTROPHILS 76 % (28-66)
[2024-11-16 06:58] LABS: PLATELET ESTIMATE MARKED DECREASE (NORMAL)
[2024-11-16 07:00] LABS: TEAR DROP CELLS 1+
[2024-11-16 11:36] LABS: BLOOD UREA NITROGEN 31 MG/DL (9-23); CALCIUM LEVEL 6.7 MG/DL (8.5-10.1); CARBON DIOXIDE LEVEL 26 MMOL/L (20-31); CHLORIDE LEVEL 107 MMOL/L (98-107); CREATININE FOR GFR 0.83 MG/DL (0.55-1.30); GLOMERULAR FILTRATION RATE > 60.0 (>60); GLUCOSE, FASTING 155 MG/DL (60-100); SODIUM LEVEL 141 MMOL/L (136-145)
[2024-11-16] MEDS: KCL 20MEQ IN 100ML SWI (KRUN) 20 MEQ in IV 1 EA IV SCH (11:54)
[2024-11-16 15:17] LABS: HEMOGLOBIN 9.3 g/dl (12.0-15.5)
[2024-11-16 15:23] LABS: PLATELET COUNT, AUTOMATED 20 10^3/uL (150-450)
[2024-11-16 15:43] LABS: MAGNESIUM LEVEL 1.9 MG/DL (1.8-2.4); PHOSPHORUS LEVEL 2.4 MG/DL (2.5-4.9)
[2024-11-16 18:08] LABS: HEMOGLOBIN 9.3 g/dl (12.0-15.5)
[2024-11-16] MEDS: INSULIN LISPRO (NovoLOG) PER UNIT SC SCH (18:09)
[2024-11-16] MEDS: HYDROCORTISONE 100MG/2ML VIAL IV SCH (18:09)
[2024-11-16] MEDS: FAT EMULSION IV 250 ML IV ONE (18:09)
[2024-11-16] MEDS: SODIUM CHLORIDE IV SCH (18:10)
[2024-11-16] MEDS: SODIUM ACETATE IV SCH (18:10)
[2024-11-16] MEDS: [UNRECOGNIZED DRUG - OTHER] IV SCH (18:10)
[2024-11-16 18:13] LABS: PLATELET COUNT, AUTOMATED 16 10^3/uL (150-450)
[2024-11-16 18:35] LABS: MAGNESIUM LEVEL 2.1 MG/DL (1.8-2.4); POTASSIUM SERUM 3.6 MMOL/L (3.5-5.1)
[2024-11-16 22:25] LABS: HEMOGLOBIN 9.1 g/dl (12.0-15.5); PLATELET COUNT, AUTOMATED 23 10^3/uL (150-450)
[2024-11-16 22:50] LABS: MAGNESIUM LEVEL 1.9 MG/DL (1.8-2.4); POTASSIUM SERUM 3.5 MMOL/L (3.5-5.1)
[2024-11-17] VITALS (66 sets, daily range): BP systolic 91–133; BP diastolic 50–79; TEMP 98.6–100.9; O2SAT 79–99
[2024-11-17] MEDS: MIDAZOLAM INJ 2MG/2ML VIAL IV PRN (03:17)
[2024-11-17 04:14] LABS: HEMOGLOBIN 9.1 g/dl (12.0-15.5)
[2024-11-17 04:17] LABS: PLATELET COUNT, AUTOMATED 29 10^3/uL (150-450)
[2024-11-17 04:40] LABS: MAGNESIUM LEVEL 1.8 MG/DL (1.8-2.4); POTASSIUM SERUM 3.3 MMOL/L (3.5-5.1)
[2024-11-17 06:01] LABS: ABG BASE EXCESS 0.7 (-2.0-2.0); ABG HCO3 24.2 MMOL/L (22.0-26.0); ABG O2 SATURATION 99.2 % (95.0-99.0); ABG PARTIAL PRESSURE CO2 34.1 mmHg (35.0-45.0); ABG PARTIAL PRESSURE O2 147.9 mmHg (75.0-100.0); ABG STANDARD HCO3 25.1 MMOL/L. (22.0-26.0); ABG TOTAL CO2 25.3 MMOL/L (22.0-29.0); ABG pH (ARTERIAL) 7.469 UNITS (7.350-7.450)
[2024-11-17] MEDS: KCL 20MEQ IN 100ML SWI (KRUN) 20 MEQ in IV 1 EA IV SCH (06:22)
[2024-11-17 06:45] LABS: HEMATOCRIT 26.3 % (36.0-47.0); MEAN CORPUSCULAR HGB CONC 34.6 g/dl (32.0-36.5); MEAN CORPUSCULAR VOLUME 86.8 fl (80.0-96.0); RED BLOOD COUNT 3.03 10^6/uL (4.00-5.40); WHITE BLOOD COUNT 8.2 10^3/uL (4.0-10.0)
[2024-11-17 06:57] LABS: ALBUMIN 1.6 G/DL (3.2-5.2); ALKALINE PHOSPHATASE 168 U/L (35-104); ALT/SGPT 75 U/L (7.0-40); AST/SGOT 110 U/L (<34); BILIRUBIN,TOTAL 7.6 MG/DL (0.3-1.2); BLOOD UREA NITROGEN 36 MG/DL (9-23); CALCIUM LEVEL 7.5 MG/DL (8.5-10.1); CARBON DIOXIDE LEVEL 25 MMOL/L (20-31); CHLORIDE LEVEL 111 MMOL/L (98-107); CREATININE FOR GFR 0.78 MG/DL (0.55-1.30); GLOMERULAR FILTRATION RATE > 60.0 (>60); GLUCOSE, FASTING 110 MG/DL (60-100); SODIUM LEVEL 143 MMOL/L (136-145); TOTAL PROTEIN 4.1 G/DL (5.7-8.2)
[2024-11-17] MEDS: HYDROCORTISONE 100MG/2ML VIAL IV SCH (08:11)
[2024-11-17] MEDS: dexmedeTOMidine 200 MCG in IV 1 EA IV SCH (12:32)
[2024-11-17] MEDS: FUROSEMIDE injection 100 MG, VIAL 2 BAG 13MM ADAPTER 1 EACH in D5W 100 ML IV SCH (12:40)
[2024-11-17 14:43] LABS: PLATELET COUNT, AUTOMATED 22 10^3/uL (150-450)
[2024-11-17 15:11] LABS: MAGNESIUM LEVEL 1.7 MG/DL (1.8-2.4); POTASSIUM SERUM 3.5 MMOL/L (3.5-5.1)
[2024-11-17] MEDS: FAT EMULSION IV 250 ML IV ONE (18:31)
[2024-11-17] MEDS: [UNRECOGNIZED DRUG - OTHER] IV SCH (18:32)
[2024-11-17] MEDS: SODIUM CHLORIDE IV SCH (18:32)
[2024-11-17] MEDS: SODIUM ACETATE IV SCH (18:32)
[2024-11-17] MEDS: INSULIN LISPRO (NovoLOG) PER UNIT SC SCH (18:33)
[2024-11-17] MEDS: MAG SULF 1GM/100ML (MAG RUN) 1 GM in IV 1 EA IV ONE (18:46)
[2024-11-17 21:55] LABS: PLATELET COUNT, AUTOMATED 22 10^3/uL (150-450)
[2024-11-18] VITALS (36 sets, daily range): BP systolic 96–135; BP diastolic 53–76; TEMP 98.6–100.8; O2SAT 89–97
[2024-11-18] MEDS: fentaNYL 100 MCG/2 ML INJECTION IV PRN (00:30)
[2024-11-18 00:31] LABS: BLOOD UREA NITROGEN 34 MG/DL (9-23); CALCIUM LEVEL 8.1 MG/DL (8.5-10.1); CARBON DIOXIDE LEVEL 30 MMOL/L (20-31); CHLORIDE LEVEL 110 MMOL/L (98-107); CREATININE FOR GFR 0.74 MG/DL (0.55-1.30); GLOMERULAR FILTRATION RATE > 60.0 (>60); GLUCOSE, FASTING 131 MG/DL (60-100); MAGNESIUM LEVEL 1.7 MG/DL (1.8-2.4); POTASSIUM SERUM 2.8 MMOL/L (3.5-5.1); SODIUM LEVEL 148 MMOL/L (136-145)
[2024-11-18] MEDS: MAG SULF 1GM/100ML (MAG RUN) 1 GM in IV 1 EA IV SCH ×3 (00:54→14:41)
[2024-11-18] MEDS: KCL 20MEQ IN 100ML SWI (KRUN) 20 MEQ in IV 1 EA IV SCH (02:58)
[2024-11-18 05:22] LABS: ABG BASE EXCESS 3.9 (-2.0-2.0); ABG HCO3 26.9 MMOL/L (22.0-26.0); ABG O2 SATURATION 96.4 % (95.0-99.0); ABG PARTIAL PRESSURE CO2 34.2 mmHg (35.0-45.0); ABG PARTIAL PRESSURE O2 90.5 mmHg (75.0-100.0); ABG pH (ARTERIAL) 7.514 UNITS (7.350-7.450)
[2024-11-18 06:06] LABS: HEMATOCRIT 24.6 % (36.0-47.0); HEMOGLOBIN 8.6 g/dl (12.0-15.5); MEAN CORPUSCULAR HEMOGLOBIN 31.2 pg (27.0-33.0); MEAN CORPUSCULAR VOLUME 89.1 fl (80.0-96.0); RED BLOOD COUNT 2.76 10^6/uL (4.00-5.40); WHITE BLOOD COUNT 11.2 10^3/uL (4.0-10.0)
[2024-11-18 06:09] LABS: PLATELET COUNT, AUTOMATED 24 10^3/uL (150-450)
[2024-11-18 06:37] LABS: ALBUMIN 1.7 G/DL (3.2-5.2); ALKALINE PHOSPHATASE 270 U/L (35-104); ALT/SGPT 74 U/L (7.0-40); AST/SGOT 88 U/L (<34); BLOOD UREA NITROGEN 34 MG/DL (9-23); CALCIUM LEVEL 8.4 MG/DL (8.5-10.1); CARBON DIOXIDE LEVEL 30 MMOL/L (20-31); CHLORIDE LEVEL 107 MMOL/L (98-107); CREATININE FOR GFR 0.76 MG/DL (0.55-1.30); GLOMERULAR FILTRATION RATE > 60.0 (>60); GLUCOSE, FASTING 155 MG/DL (60-100); SODIUM LEVEL 147 MMOL/L (136-145); TOTAL PROTEIN 4.4 G/DL (5.7-8.2)
[2024-11-18] MEDS ORDERED: FENTANYL DRIP LOCK BOX KEY 1 EACH XX PRN (08:15)
[2024-11-18 08:57] LABS: SOURCE PERIPHERAL SMEAR
[2024-11-18] MEDS: fentaNYL CITRATE/NaCl 1,000 MCG in IV 1 EA IV SCH (09:22)
[2024-11-18 09:35] LABS: POTASSIUM SERUM 2.8 MMOL/L (3.5-5.1)
[2024-11-18] MEDS: MIDAZOLAM 100MG/100ML-0.9%NACL 100 MG in IV 1 EA IV SCH (10:00)
[2024-11-18] MEDS: KCL 10MEQ/100ML SWI (KRUN) 10 MEQ in IV 1 EA IV SCH ×2 (10:10→17:33)
[2024-11-18] MEDS: D5W IV SCH (14:04)
[2024-11-18] MEDS: MEROPENEM IV SCH (14:04)
[2024-11-18 16:34] LABS: HEMATOCRIT 23.7 % (36.0-47.0); HEMOGLOBIN 8.1 g/dl (12.0-15.5); MEAN CORPUSCULAR HEMOGLOBIN 29.9 pg (27.0-33.0); MEAN CORPUSCULAR HGB CONC 34.2 g/dl (32.0-36.5); MEAN CORPUSCULAR VOLUME 87.5 fl (80.0-96.0); RED BLOOD COUNT 2.71 10^6/uL (4.00-5.40); WHITE BLOOD COUNT 14.3 10^3/uL (4.0-10.0)
[2024-11-18 16:37] LABS: PLATELET COUNT, AUTOMATED 34 10^3/uL (150-450)
[2024-11-18 17:03] LABS: ALBUMIN 1.5 G/DL (3.2-5.2); BLOOD UREA NITROGEN 38 MG/DL (9-23); CALCIUM LEVEL 8.1 MG/DL (8.5-10.1); CARBON DIOXIDE LEVEL 33 MMOL/L (20-31); CHLORIDE LEVEL 106 MMOL/L (98-107); CREATININE FOR GFR 0.74 MG/DL (0.55-1.30); GLOMERULAR FILTRATION RATE > 60.0 (>60); GLUCOSE, FASTING 177 MG/DL (60-100); MAGNESIUM LEVEL 2.4 MG/DL (1.8-2.4); PHOSPHORUS LEVEL 3.1 MG/DL (2.5-4.9); POTASSIUM SERUM 2.9 MMOL/L (3.5-5.1); SODIUM LEVEL 147 MMOL/L (136-145)
[2024-11-18] MEDS ORDERED: KCL 20MEQ IN 100ML SWI (KRUN) 20 MEQ in IV 1 EA IV ONE (17:10)
[2024-11-18] MEDS ORDERED: FUROSEMIDE injection 100 MG, VIAL 2 BAG 13MM ADAPTER 1 EACH in D5W 100 ML IV SCH (17:14)
[2024-11-18] MEDS: SODIUM CHLORIDE IV SCH (17:34)
[2024-11-18] MEDS: [UNRECOGNIZED DRUG - OTHER] IV SCH (17:34)
[2024-11-18] MEDS: SODIUM ACETATE IV SCH (17:34)
[2024-11-18] MEDS: FAT EMULSION IV 250 ML IV ONE (17:34)
[2024-11-18] MEDS: INSULIN LISPRO (NovoLOG) PER UNIT SC SCH (17:35)
[2024-11-18 23:10] LABS: ALBUMIN 1.5 G/DL (3.2-5.2); BLOOD UREA NITROGEN 36 MG/DL (9-23); CARBON DIOXIDE LEVEL 34 MMOL/L (20-31); CHLORIDE LEVEL 107 MMOL/L (98-107); CREATININE FOR GFR 0.66 MG/DL (0.55-1.30); GLOMERULAR FILTRATION RATE > 60.0 (>60); GLUCOSE, FASTING 145 MG/DL (60-100); MAGNESIUM LEVEL 1.9 MG/DL (1.8-2.4); PHOSPHORUS LEVEL 2.6 MG/DL (2.5-4.9); POTASSIUM SERUM 3.7 MMOL/L (3.5-5.1); SODIUM LEVEL 147 MMOL/L (136-145)
[2024-11-19] VITALS (30 sets, daily range): BP systolic 102–148; BP diastolic 56–74; TEMP 98.8–100.6; O2SAT 93–98
[2024-11-19 04:44] LABS: HEMATOCRIT 23.3 % (36.0-47.0); MEAN CORPUSCULAR HEMOGLOBIN 30.5 pg (27.0-33.0); MEAN CORPUSCULAR HGB CONC 34.3 g/dl (32.0-36.5); MEAN CORPUSCULAR VOLUME 88.9 fl (80.0-96.0); RED BLOOD COUNT 2.62 10^6/uL (4.00-5.40); WHITE BLOOD COUNT 17.9 10^3/uL (4.0-10.0)
[2024-11-19 04:49] LABS: PLATELET COUNT, AUTOMATED 67 10^3/uL (150-450)
[2024-11-19 05:07] LABS: ALBUMIN 1.5 G/DL (3.2-5.2); ALKALINE PHOSPHATASE 250 U/L (35-104); ALT/SGPT 59 U/L (7.0-40); AST/SGOT 57 U/L (<34); BILIRUBIN,TOTAL 4.1 MG/DL (0.3-1.2); BLOOD UREA NITROGEN 38 MG/DL (9-23); CALCIUM LEVEL 7.9 MG/DL (8.5-10.1); CARBON DIOXIDE LEVEL 32 MMOL/L (20-31); CHLORIDE LEVEL 109 MMOL/L (98-107); CREATININE FOR GFR 0.63 MG/DL (0.55-1.30); GLOMERULAR FILTRATION RATE > 60.0 (>60); GLUCOSE, FASTING 158 MG/DL (60-100); POTASSIUM SERUM 4.1 MMOL/L (3.5-5.1); SODIUM LEVEL 148 MMOL/L (136-145); TOTAL PROTEIN 4.5 G/DL (5.7-8.2)
[2024-11-19 05:24] LABS: ABG BASE EXCESS 8.2 (-2.0-2.0); ABG HCO3 31.8 MMOL/L (22.0-26.0); ABG O2 SATURATION 98.3 % (95.0-99.0); ABG PARTIAL PRESSURE CO2 39.8 mmHg (35.0-45.0); ABG PARTIAL PRESSURE O2 145.3 mmHg (75.0-100.0)
[2024-11-19] MEDS: HYDROCORTISONE 100MG/2ML VIAL IV SCH (07:49)
[2024-11-19] MEDS: FUROSEMIDE 20MG/2ML VIAL IV SCH (07:49)
[2024-11-19] MEDS: KCL 20MEQ IN D5W 1000ML 1,000 ML IV SCH (07:49)
[2024-11-19 16:36] LABS: BLOOD UREA NITROGEN 34 MG/DL (9-23); CARBON DIOXIDE LEVEL 34 MMOL/L (20-31); CHLORIDE LEVEL 107 MMOL/L (98-107); CREATININE FOR GFR 0.55 MG/DL (0.55-1.30); GLOMERULAR FILTRATION RATE > 60.0 (>60); GLUCOSE, FASTING 141 MG/DL (60-100); POTASSIUM SERUM 3.6 MMOL/L (3.5-5.1); SODIUM LEVEL 146 MMOL/L (136-145)
[2024-11-19] MEDS: SODIUM CHLORIDE IV SCH (17:28)
[2024-11-19] MEDS: [UNRECOGNIZED DRUG - OTHER] IV SCH (17:28)
[2024-11-19] MEDS: POTASSIUM CHLORIDE IV SCH (17:28)
[2024-11-19] MEDS: FAT EMULSION IV 250 ML IV ONE (17:28)
[2024-11-19] MEDS: INSULIN LISPRO (NovoLOG) PER UNIT SC SCH (17:29)
[2024-11-19 20:28] LABS: BLOOD UREA NITROGEN 35 MG/DL (9-23); CALCIUM LEVEL 7.7 MG/DL (8.5-10.1); CARBON DIOXIDE LEVEL 34 MMOL/L (20-31); CHLORIDE LEVEL 108 MMOL/L (98-107); CREATININE FOR GFR 0.54 MG/DL (0.55-1.30); GLOMERULAR FILTRATION RATE > 60.0 (>60); GLUCOSE, FASTING 136 MG/DL (60-100); POTASSIUM SERUM 3.6 MMOL/L (3.5-5.1); SODIUM LEVEL 147 MMOL/L (136-145)
[2024-11-19] MEDS: MEROPENEM INJ 1 GM in IV 1 EA IV SCH ×2 (21:43→22:18)
[2024-11-20] VITALS (37 sets, daily range): BP systolic 102–155; BP diastolic 56–82; TEMP 98.4–100.4; O2SAT 91–99
[2024-11-20 04:12] LABS: HEMATOCRIT 22.4 % (36.0-47.0); HEMOGLOBIN 7.5 g/dl (12.0-15.5); MEAN CORPUSCULAR HEMOGLOBIN 30.5 pg (27.0-33.0); MEAN CORPUSCULAR HGB CONC 33.5 g/dl (32.0-36.5); MEAN CORPUSCULAR VOLUME 91.1 fl (80.0-96.0); PLATELET COUNT, AUTOMATED 118 10^3/uL (150-450); RED BLOOD COUNT 2.46 10^6/uL (4.00-5.40); WHITE BLOOD COUNT 23.6 10^3/uL (4.0-10.0)
[2024-11-20 04:52] LABS: ALBUMIN 1.5 G/DL (3.2-5.2); ALKALINE PHOSPHATASE 229 U/L (35-104); ALT/SGPT 50 U/L (7.0-40); AST/SGOT 45 U/L (<34); BILIRUBIN,TOTAL 2.7 MG/DL (0.3-1.2); BLOOD UREA NITROGEN 35 MG/DL (9-23); CALCIUM LEVEL 7.8 MG/DL (8.5-10.1); CARBON DIOXIDE LEVEL 34 MMOL/L (20-31); CHLORIDE LEVEL 108 MMOL/L (98-107); CREATININE FOR GFR 0.51 MG/DL (0.55-1.30); GLOMERULAR FILTRATION RATE > 60.0 (>60); GLUCOSE, FASTING 159 MG/DL (60-100); POTASSIUM SERUM 3.7 MMOL/L (3.5-5.1); SODIUM LEVEL 147 MMOL/L (136-145); TOTAL PROTEIN 4.6 G/DL (5.7-8.2)
[2024-11-20] MEDS: LORazepam 2 MG/ML 1ML VIAL IV STA (05:17)
[2024-11-20 06:15] LABS: ABG BASE EXCESS 5.7 (-2.0-2.0); ABG HCO3 28.8 MMOL/L (22.0-26.0); ABG O2 SATURATION 97.4 % (95.0-99.0); ABG PARTIAL PRESSURE CO2 35.8 mmHg (35.0-45.0); ABG PARTIAL PRESSURE O2 96.9 mmHg (75.0-100.0); ABG STANDARD HCO3 29.6 MMOL/L. (22.0-26.0); ABG TOTAL CO2 29.9 MMOL/L (22.0-29.0); ABG pH (ARTERIAL) 7.524 UNITS (7.350-7.450)
[2024-11-20] MEDS: FUROSEMIDE 20MG/2ML VIAL IV ONE (08:29)
[2024-11-20] MEDS: HEPARIN SOD (PORCINE) 5000UNITS/ML 1ML VIAL/SYRINGE SQ SCH (08:29)
[2024-11-20] MEDS: MIDAZOLAM 100MG/100ML-0.9%NACL 100 MG in IV 1 EA IV SCH (09:25)
[2024-11-20] MEDS ORDERED: dexmedeTOMidine 200 MCG in IV 1 EA IV SCH (09:25)
[2024-11-20 17:32] LABS: MAGNESIUM LEVEL 1.5 MG/DL (1.8-2.4)
[2024-11-20] MEDS: INSULIN LISPRO (NovoLOG) PER UNIT SC SCH (17:49)
[2024-11-20] MEDS: FAT EMULSION IV 250 ML IV ONE (17:50)
[2024-11-20] MEDS: SODIUM CHLORIDE IV SCH (17:51)
[2024-11-20] MEDS: [UNRECOGNIZED DRUG - OTHER] IV SCH (17:51)
[2024-11-20] MEDS: POTASSIUM CHLORIDE IV SCH (17:51)
[2024-11-20] MEDS: MAG SULF 1GM/100ML (MAG RUN) 1 GM in IV 1 EA IV SCH (18:14)
[2024-11-20 21:59] LABS: BLOOD UREA NITROGEN 32 MG/DL (9-23); CALCIUM LEVEL 7.7 MG/DL (8.5-10.1); CARBON DIOXIDE LEVEL 33 MMOL/L (20-31); CHLORIDE LEVEL 103 MMOL/L (98-107); CREATININE FOR GFR 0.47 MG/DL (0.55-1.30); GLOMERULAR FILTRATION RATE > 60.0 (>60); GLUCOSE, FASTING 144 MG/DL (60-100); PHOSPHORUS LEVEL 2.3 MG/DL (2.5-4.9); POTASSIUM SERUM 3.5 MMOL/L (3.5-5.1); SODIUM LEVEL 144 MMOL/L (136-145)
[2024-11-21] VITALS (35 sets, daily range): BP systolic 108–149; BP diastolic 58–80; TEMP 100–101.4; O2SAT 94–100
[2024-11-21 00:35] LABS: HEMATOCRIT 24.5 % (36.0-47.0); HEMOGLOBIN 8.3 g/dl (12.0-15.5)
[2024-11-21 04:56] LABS: HEMATOCRIT 24.6 % (36.0-47.0); HEMOGLOBIN 8.2 g/dl (12.0-15.5); MEAN CORPUSCULAR HEMOGLOBIN 29.9 pg (27.0-33.0); MEAN CORPUSCULAR HGB CONC 33.3 g/dl (32.0-36.5); MEAN CORPUSCULAR VOLUME 89.8 fl (80.0-96.0); PLATELET COUNT, AUTOMATED 180 10^3/uL (150-450); RED BLOOD COUNT 2.74 10^6/uL (4.00-5.40); WHITE BLOOD COUNT 23.3 10^3/uL (4.0-10.0)
[2024-11-21 05:31] LABS: ALBUMIN 2.2 G/DL (3.2-5.2); ALKALINE PHOSPHATASE 233 U/L (35-104); ALT/SGPT 47 U/L (7.0-40); AST/SGOT 51 U/L (<34); BILIRUBIN,TOTAL 3.2 MG/DL (0.3-1.2); BLOOD UREA NITROGEN 31 MG/DL (9-23); CALCIUM LEVEL 8.1 MG/DL (8.5-10.1); CARBON DIOXIDE LEVEL 35 MMOL/L (20-31); CHLORIDE LEVEL 106 MMOL/L (98-107); CREATININE FOR GFR 0.45 MG/DL (0.55-1.30); GLOMERULAR FILTRATION RATE > 60.0 (>60); GLUCOSE, FASTING 134 MG/DL (60-100); MAGNESIUM LEVEL 1.8 MG/DL (1.8-2.4); POTASSIUM SERUM 3.7 MMOL/L (3.5-5.1); SODIUM LEVEL 144 MMOL/L (136-145); TOTAL PROTEIN 5.1 G/DL (5.7-8.2)
[2024-11-21 05:57] LABS: ABG BASE EXCESS 6.5 (-2.0-2.0); ABG HCO3 30.2 MMOL/L (22.0-26.0); ABG O2 SATURATION 94.6 % (95.0-99.0); ABG PARTIAL PRESSURE CO2 39.7 mmHg (35.0-45.0); ABG STANDARD HCO3 30.3 MMOL/L. (22.0-26.0); ABG TOTAL CO2 31.4 MMOL/L (22.0-29.0); ABG pH (ARTERIAL) 7.499 UNITS (7.350-7.450)
[2024-11-21] MEDS: HYDROCORTISONE 100MG/2ML VIAL IV SCH (08:50)
[2024-11-21] MEDS: CLOTRIMAZOLE 1% TOPICAL CREAM 30GM TOP SCH (09:43)
[2024-11-21 09:52] LABS: PHOSPHORUS LEVEL 2.1 MG/DL (2.5-4.9)
[2024-11-21] MEDS: IPRATROPIUM 0.5MG/ALBUTEROL 2.5MG INH SOL UD 3ML (DUONEB) NEB ONE (11:23)
[2024-11-21] MEDS: diphenhydrAMINE 50MG/ML VIAL IV ONE (12:22)
[2024-11-21] MEDS: ONDANSETRON 4MG 2ML VIAL IV ONE ×2 (12:22→19:52)
[2024-11-21] MEDS ORDERED: SODIUM PHOSPHATE INJ 30 MMOL in D5W 500 ML IV ONE (13:00)
[2024-11-21] MEDS: LINEZOLID 600 MG in IV 1 EA IV SCH (13:08)
[2024-11-21] MEDS: IMMUNE GLOBULIN 10% 40 GM in IV 1 EA IV ONE (13:31)
[2024-11-21 14:35] LABS: PROCALCITONIN 1.05 ng/ml
[2024-11-21] MEDS ORDERED: fentaNYL CITRATE 1,000 MCG in NS 80 ML IV SCH (16:23)
[2024-11-21] MEDS: SODIUM CHLORIDE IV SCH (17:43)
[2024-11-21] MEDS: [UNRECOGNIZED DRUG - OTHER] IV SCH (17:43)
[2024-11-21] MEDS: SODIUM PHOSPHATE IV SCH (17:43)
[2024-11-21] MEDS: FAT EMULSION IV 250 ML IV ONE (17:43)
[2024-11-21 17:57] LABS: ALBUMIN 2.4 G/DL (3.2-5.2); ALKALINE PHOSPHATASE 390 U/L (35-104); ALT/SGPT 91 U/L (7.0-40); AST/SGOT 106 U/L (<34); BILIRUBIN,TOTAL 6.2 MG/DL (0.3-1.2); BLOOD UREA NITROGEN 31 MG/DL (9-23); CALCIUM LEVEL 8.3 MG/DL (8.5-10.1); CARBON DIOXIDE LEVEL 29 MMOL/L (20-31); CHLORIDE LEVEL 104 MMOL/L (98-107); CREATININE FOR GFR 0.46 MG/DL (0.55-1.30); GLOMERULAR FILTRATION RATE > 60.0 (>60); GLUCOSE, FASTING 121 MG/DL (60-100); MAGNESIUM LEVEL 1.8 MG/DL (1.8-2.4); PHOSPHORUS LEVEL 1.6 MG/DL (2.5-4.9); POTASSIUM SERUM 3.7 MMOL/L (3.5-5.1); SODIUM LEVEL 143 MMOL/L (136-145)
[2024-11-21] MEDS: INSULIN LISPRO (NovoLOG) PER UNIT SC SCH (18:00)
[2024-11-21 21:06] LABS: ALBUMIN 2.2 G/DL (3.2-5.2); BLOOD UREA NITROGEN 30 MG/DL (9-23); CALCIUM LEVEL 7.9 MG/DL (8.5-10.1); CARBON DIOXIDE LEVEL 29 MMOL/L (20-31); CHLORIDE LEVEL 108 MMOL/L (98-107); CREATININE FOR GFR 0.42 MG/DL (0.55-1.30); GLOMERULAR FILTRATION RATE > 60.0 (>60); GLUCOSE, FASTING 114 MG/DL (60-100); PHOSPHORUS LEVEL 1.7 MG/DL (2.5-4.9); POTASSIUM SERUM 3.7 MMOL/L (3.5-5.1); SODIUM LEVEL 142 MMOL/L (136-145)
[2024-11-21] MEDS: PROMETHAZINE 25MG/ML 1ML VIAL IV ONE (21:58)
[2024-11-22] VITALS (24 sets, daily range): BP systolic 113–148; BP diastolic 56–98; TEMP 99.9–101.6; O2SAT 94–100
[2024-11-22 04:18] LABS: HEMATOCRIT 23.7 % (36.0-47.0); MEAN CORPUSCULAR HEMOGLOBIN 30.7 pg (27.0-33.0); MEAN CORPUSCULAR HGB CONC 33.8 g/dl (32.0-36.5); MEAN CORPUSCULAR VOLUME 90.8 fl (80.0-96.0); PLATELET COUNT, AUTOMATED 265 10^3/uL (150-450); RED BLOOD COUNT 2.61 10^6/uL (4.00-5.40); WHITE BLOOD COUNT 18.9 10^3/uL (4.0-10.0)
[2024-11-22 04:36] LABS: ALKALINE PHOSPHATASE 327 U/L (35-104); ALT/SGPT 86 U/L (7.0-40); AST/SGOT 93 U/L (<34); BILIRUBIN,TOTAL 3.7 MG/DL (0.3-1.2); BLOOD UREA NITROGEN 30 MG/DL (9-23); CALCIUM LEVEL 7.7 MG/DL (8.5-10.1); CARBON DIOXIDE LEVEL 25 MMOL/L (20-31); CHLORIDE LEVEL 109 MMOL/L (98-107); CREATININE FOR GFR 0.41 MG/DL (0.55-1.30); GLOMERULAR FILTRATION RATE > 60.0 (>60); GLUCOSE, FASTING 102 MG/DL (60-100); POTASSIUM SERUM 3.9 MMOL/L (3.5-5.1); SODIUM LEVEL 142 MMOL/L (136-145); TOTAL PROTEIN 5.8 G/DL (5.7-8.2)
[2024-11-22 08:23] LABS: PHOSPHORUS LEVEL 1.7 MG/DL (2.5-4.9)
[2024-11-22] MEDS: SODIUM PHOSPHATE INJ 30 MMOL in D5W 500 ML IV ONE (09:12)
[2024-11-22] MEDS ORDERED: LORazepam 2 MG/ML 1ML VIAL As Ordered ONE (12:11)
[2024-11-22] MEDS: LORazepam 2 MG/ML 1ML VIAL IV STA (12:14)
[2024-11-22] MEDS ORDERED: levETIRAcetam INJection 1,000 MG in D5W 100 ML IV ONE (12:15)
[2024-11-22] MEDS: MINI IV SCH (13:27)
[2024-11-22] MEDS: ACYCLOVIR IV SCH (13:27)
[2024-11-22] MEDS: DEXTROSE 5% IV SCH (13:27)
[2024-11-22] MEDS: PREGABALIN 75 MG CAP(LYRICA) PO SCH (14:00)
[2024-11-22] MEDS: FAT EMULSION IV 250 ML IV ONE (17:14)
[2024-11-22] MEDS: SODIUM PHOSPHATE IV SCH (17:15)
[2024-11-22] MEDS: SODIUM CHLORIDE IV SCH (17:15)
[2024-11-22] MEDS: [UNRECOGNIZED DRUG - OTHER] IV SCH (17:15)
[2024-11-22] MEDS: INSULIN LISPRO (NovoLOG) PER UNIT SC SCH (17:58)
[2024-11-22 19:17] LABS: FUNGITELL INTERPRETATION POSITIVE (NEGATIVE); FUNGITELL, SERUM 109 pg/mL (<60)
[2024-11-22] MEDS: cefTRIAXone SOD 2 GM in DEXTROSE 5% (D5W) ADV/MINI-BAG 50 ML IV SCH (20:05)
[2024-11-22] MEDS: levETIRAcetam ORAL SOLUTION 500MG/5ML UDC GT SCH (22:28)
[2024-11-23] VITALS (23 sets, daily range): BP systolic 105–135; BP diastolic 58–81; TEMP 99.9–101.5; O2SAT 96–100
[2024-11-23 04:32] LABS: ALBUMIN 2.2 G/DL (3.2-5.2); ALKALINE PHOSPHATASE 302 U/L (35-104); ALT/SGPT 90 U/L (7.0-40); AST/SGOT 94 U/L (<34); BILIRUBIN,TOTAL 2.1 MG/DL (0.3-1.2); BLOOD UREA NITROGEN 23 MG/DL (9-23); CALCIUM LEVEL 7.9 MG/DL (8.5-10.1); CARBON DIOXIDE LEVEL 24 MMOL/L (20-31); CHLORIDE LEVEL 108 MMOL/L (98-107); GLOMERULAR FILTRATION RATE > 60.0 (>60); GLUCOSE, FASTING 86 MG/DL (60-100); HEMATOCRIT 23.3 % (36.0-47.0); HEMOGLOBIN 7.9 g/dl (12.0-15.5); MAGNESIUM LEVEL 1.7 MG/DL (1.8-2.4); MEAN CORPUSCULAR HEMOGLOBIN 30.6 pg (27.0-33.0); MEAN CORPUSCULAR HGB CONC 33.9 g/dl (32.0-36.5); MEAN CORPUSCULAR VOLUME 90.3 fl (80.0-96.0); PHOSPHORUS LEVEL 1.5 MG/DL (2.5-4.9); PLATELET COUNT, AUTOMATED 333 10^3/uL (150-450); RED BLOOD COUNT 2.58 10^6/uL (4.00-5.40); SODIUM LEVEL 139 MMOL/L (136-145); WHITE BLOOD COUNT 18.4 10^3/uL (4.0-10.0)
[2024-11-23] MEDS: MAG SULF 1GM/100ML (MAG RUN) 1 GM in IV 1 EA IV ONE (06:42)
[2024-11-23] MEDS: SODIUM PHOSPHATE INJ 30 MMOL in D5W 500 ML IV ONE (11:47)
[2024-11-23] MEDS: levETIRAcetam INJection 500 MG in DEXTROSE 5% (D5W) MINI-BAG PLU 100 ML IV SCH (11:51)
[2024-11-23] MEDS: CALCIUM GLUCONATE 1,000 MG in DEXTROSE 5% (D5W) MINI-BAG PLU 100 ML IV ONE (11:52)
[2024-11-23] MEDS: INSULIN LISPRO (NovoLOG) PER UNIT SC SCH (18:00)
[2024-11-23] MEDS: [UNRECOGNIZED DRUG - OTHER] IV SCH (18:12)
[2024-11-23] MEDS: SODIUM PHOSPHATE IV SCH (18:12)
[2024-11-23] MEDS: SODIUM CHLORIDE IV SCH (18:12)
[2024-11-23] MEDS: FAT EMULSION IV 250 ML IV ONE (18:12)
[2024-11-24] VITALS (16 sets, daily range): BP systolic 115–131; BP diastolic 65–81; TEMP 98.1–101.4; O2SAT 96–100
[2024-11-24 04:57] LABS: HEMATOCRIT 23.8 % (36.0-47.0); MEAN CORPUSCULAR HEMOGLOBIN 29.9 pg (27.0-33.0); MEAN CORPUSCULAR HGB CONC 33.6 g/dl (32.0-36.5); MEAN CORPUSCULAR VOLUME 88.8 fl (80.0-96.0); PLATELET COUNT, AUTOMATED 424 10^3/uL (150-450); RED BLOOD COUNT 2.68 10^6/uL (4.00-5.40); WHITE BLOOD COUNT 15.2 10^3/uL (4.0-10.0)
[2024-11-24 05:10] LABS: THYROID STIMULATING HORMONE 4.849 uIU/ML (0.55-4.78)
[2024-11-24 05:16] LABS: ALBUMIN 2.4 G/DL (3.2-5.2); ALKALINE PHOSPHATASE 249 U/L (35-104); ALT/SGPT 85 U/L (7.0-40); AST/SGOT 75 U/L (<34); BILIRUBIN,TOTAL 1.6 MG/DL (0.3-1.2); BLOOD UREA NITROGEN 16 MG/DL (9-23); CALCIUM LEVEL 8.1 MG/DL (8.5-10.1); CARBON DIOXIDE LEVEL 23 MMOL/L (20-31); CHLORIDE LEVEL 108 MMOL/L (98-107); CREATININE FOR GFR 0.33 MG/DL (0.55-1.30); GLOMERULAR FILTRATION RATE > 60.0 (>60); GLUCOSE, FASTING 98 MG/DL (60-100); MAGNESIUM LEVEL 1.9 MG/DL (1.8-2.4); PHOSPHORUS LEVEL 2.2 MG/DL (2.5-4.9); SODIUM LEVEL 139 MMOL/L (136-145); TOTAL PROTEIN 6.4 G/DL (5.7-8.2)
[2024-11-24 05:54] LABS: VITAMIN B12 LEVEL > 2000 PG/ML (211-911)
[2024-11-24] MEDS: SODIUM PHOSPHATE INJ 20 MMOL in D5W 250 ML IV ONE (06:24)
[2024-11-24] MEDS: INSULIN LISPRO (NovoLOG) PER UNIT SC SCH (18:00)
[2024-11-24] MEDS: SODIUM PHOSPHATE IV SCH (18:04)
[2024-11-24] MEDS: FAT EMULSION IV 250 ML IV ONE (18:04)
[2024-11-24] MEDS: SODIUM CHLORIDE IV SCH (18:04)
[2024-11-24] MEDS: [UNRECOGNIZED DRUG - OTHER] IV SCH (18:04)
[2024-11-24] MEDS: IPRATROPIUM 0.5MG/ALBUTEROL 2.5MG INH SOL UD 3ML (DUONEB) NEB PRN (22:41)
[2024-11-24] MEDS: KETOROLAC 30 MG/ML 1ML VIAL IV ONE (23:31)
[2024-11-25] VITALS (12 sets, daily range): BP systolic 112–126; BP diastolic 65–79; TEMP 98.2–100.6; O2SAT 96–100
[2024-11-25 04:17] LABS: HEMATOCRIT 22.1 % (36.0-47.0); HEMOGLOBIN 7.4 g/dl (12.0-15.5); MEAN CORPUSCULAR HGB CONC 33.5 g/dl (32.0-36.5); MEAN CORPUSCULAR VOLUME 89.5 fl (80.0-96.0); RED BLOOD COUNT 2.47 10^6/uL (4.00-5.40); WHITE BLOOD COUNT 13.6 10^3/uL (4.0-10.0)
[2024-11-25 04:21] LABS: PLATELET COUNT, AUTOMATED 537 10^3/uL (150-450)
[2024-11-25 04:41] LABS: ALBUMIN 2.3 G/DL (3.2-5.2); ALKALINE PHOSPHATASE 266 U/L (35-104); ALT/SGPT 109 U/L (7.0-40); AST/SGOT 91 U/L (<34); BILIRUBIN,TOTAL 1.3 MG/DL (0.3-1.2); BLOOD UREA NITROGEN 18 MG/DL (9-23); CALCIUM LEVEL 7.9 MG/DL (8.5-10.1); CARBON DIOXIDE LEVEL 21 MMOL/L (20-31); CHLORIDE LEVEL 111 MMOL/L (98-107); CREATININE FOR GFR 0.43 MG/DL (0.55-1.30); GLOMERULAR FILTRATION RATE > 60.0 (>60); GLUCOSE, FASTING 96 MG/DL (60-100); MAGNESIUM LEVEL 1.8 MG/DL (1.8-2.4); PHOSPHORUS LEVEL 3.1 MG/DL (2.5-4.9); POTASSIUM SERUM 4.5 MMOL/L (3.5-5.1); SODIUM LEVEL 139 MMOL/L (136-145)
[2024-11-25] MEDS: HYDROCORTISONE 100MG/2ML VIAL IV SCH (09:00)
[2024-11-25] MEDS: INSULIN LISPRO (NovoLOG) PER UNIT SC SCH (18:00)
[2024-11-25] MEDS: SODIUM CHLORIDE IV SCH (18:18)
[2024-11-25] MEDS: [UNRECOGNIZED DRUG - OTHER] IV SCH (18:18)
[2024-11-25] MEDS: SODIUM ACETATE IV SCH (18:18)
[2024-11-25] MEDS: FAT EMULSION IV 250 ML IV ONE (18:19)
[2024-11-25] MEDS ORDERED: PROMETHAZINE 25MG/ML 1ML VIAL IM PRN (18:45)
[2024-11-25] MEDS: ONDANSETRON 4MG ORAL DISINTEGRATING TAB PO PRN (21:04)
[2024-11-25] MEDS: PROMETHAZINE 25MG/ML 1ML VIAL IV PRN (22:22)
[2024-11-26] VITALS (8 sets, daily range): BP systolic 104–125; BP diastolic 59–75; TEMP 98.5–101.2; O2SAT 97–100
[2024-11-26 04:38] LABS: BASO # 0.1 10^3/uL (0.0-0.2); BASO % 0.6 % (0.0-1.0); EOS # 0.1 10^3/uL (0.0-0.5); EOS % 0.9 % (0.0-3.0); HEMATOCRIT 23.6 % (36.0-47.0); LYMPH # 3.8 10^3/uL (1.5-5.0); LYMPH % 29.5 % (24.0-44.0); MEAN CORPUSCULAR HEMOGLOBIN 30.7 pg (27.0-33.0); MEAN CORPUSCULAR HGB CONC 33.9 g/dl (32.0-36.5); MEAN CORPUSCULAR VOLUME 90.4 fl (80.0-96.0); MONO % 7.6 % (2.0-8.0); NEUTROPHILS # 7.2 10^3/uL (1.5-8.5); NEUTROPHILS % 56.7 % (36.0-66.0); RED BLOOD COUNT 2.61 10^6/uL (4.00-5.40); WHITE BLOOD COUNT 12.7 10^3/uL (4.0-10.0)
[2024-11-26 04:46] LABS: PLATELET COUNT, AUTOMATED 681 10^3/uL (150-450)
[2024-11-26 04:54] LABS: ALBUMIN 2.7 G/DL (3.2-5.2); ALKALINE PHOSPHATASE 255 U/L (35-104); ALT/SGPT 121 U/L (7.0-40); AST/SGOT 80 U/L (<34); BILIRUBIN,TOTAL 1.2 MG/DL (0.3-1.2); BLOOD UREA NITROGEN 17 MG/DL (9-23); CALCIUM LEVEL 8.9 MG/DL (8.5-10.1); CARBON DIOXIDE LEVEL 24 MMOL/L (20-31); CHLORIDE LEVEL 110 MMOL/L (98-107); CREATININE FOR GFR 0.42 MG/DL (0.55-1.30); GLOMERULAR FILTRATION RATE > 60.0 (>60); GLUCOSE, FASTING 108 MG/DL (60-100); MAGNESIUM LEVEL 1.9 MG/DL (1.8-2.4); PHOSPHORUS LEVEL 3.6 MG/DL (2.5-4.9); POTASSIUM SERUM 4.5 MMOL/L (3.5-5.1); SODIUM LEVEL 140 MMOL/L (136-145); TOTAL PROTEIN 6.5 G/DL (5.7-8.2)
[2024-11-26] MEDS: predniSONE 5 MG TAB PO SCH (09:44)
[2024-11-26] MEDS: METOPROLOL TART 12.5 MG PER 1/2 TAB PO SCH (09:45)
[2024-11-26] MEDS: FUROSEMIDE 20 MG TAB PO SCH (09:45)
[2024-11-26] MEDS: METOPROLOL TART 12.5 MG PER 1/2 TAB PO ONE (13:11)
[2024-11-26 13:15] LABS: C REACTIVE PROTEIN QUANTITATIV 0.74 MG/DL (<1.0)
[2024-11-26 13:35] LABS: PROCALCITONIN 0.26 ng/ml
[2024-11-26] MEDS ORDERED: ISOVUE-300 61% 100ML VIAL As Ordered ONE (14:28)
[2024-11-26 17:47] LABS: PH BODY FLUID 7.722 UNITS (NOT ESTABLISHED); SOURCE, BODY FLUID pH PLEURAL
[2024-11-26 17:50] LABS: APPEARANCE, BODY FLUID CLOUDY (CLEAR); PLEURAL FL COLOR PALE YELLOW (COLORLESS); SOURCE, BODY FLUID PLEURAL
[2024-11-26 17:51] LABS: LDH LACTATE DEHYDROGENASE 355 U/L (120-246)
[2024-11-26] MEDS: INSULIN LISPRO (NovoLOG) PER UNIT SC SCH (18:00)
[2024-11-26] MEDS: FAT EMULSION IV 250 ML IV ONE (18:04)
[2024-11-26] MEDS: SODIUM CHLORIDE IV SCH (18:05)
[2024-11-26] MEDS: [UNRECOGNIZED DRUG - OTHER] IV SCH (18:05)
[2024-11-26] MEDS: SODIUM ACETATE IV SCH (18:05)
[2024-11-26 18:16] LABS: SOURCE, BODY FLUID ALBUMIN PLEURAL
[2024-11-26 18:21] LABS: SOURCE, BODY FLUID GLUCOSE PLEURAL
[2024-11-26 18:22] LABS: LDH, BODY FLUID 459 U/L (NOT ESTABLISHED); SOURCE, BODY FLUID LDH PLEURAL
[2024-11-26 18:23] LABS: AMYLASE, BODY FLUID 101 U/L (NOT ESTABLISHED); CHOLESTEROL, BODY FLUID 84 MG/DL (NOT ESTABLISHED); SOURCE, BODY FLUID AMYLASE PLEURAL; SOURCE, BODY FLUID CHOL PLEURAL
[2024-11-26 18:30] LABS: SOURCE, BODY FLUID TOT PROTEIN PLEURAL; TOTAL PROTEIN, BODY FLUID 4.4 G/DL (NOT ESTABLISHED)
[2024-11-26 18:33] LABS: SOURCE, BODY FLUID TRIG PLEURAL; TRIGLYCERIDE, BODY FLUID 68 MG/DL (NOT ESTABLISHED)
[2024-11-27] VITALS (10 sets, daily range): BP systolic 104–127; BP diastolic 60–69; TEMP 98.6–101; O2SAT 96–100
[2024-11-27 04:57] LABS: BASO # 0.1 10^3/uL (0.0-0.2); BASO % 0.8 % (0.0-1.0); EOS # 0.1 10^3/uL (0.0-0.5); HEMATOCRIT 24.1 % (36.0-47.0); HEMOGLOBIN 8.1 g/dl (12.0-15.5); LYMPH # 3.9 10^3/uL (1.5-5.0); LYMPH % 29.5 % (24.0-44.0); MEAN CORPUSCULAR HEMOGLOBIN 30.3 pg (27.0-33.0); MEAN CORPUSCULAR HGB CONC 33.6 g/dl (32.0-36.5); MEAN CORPUSCULAR VOLUME 90.3 fl (80.0-96.0); MONO % 7.3 % (2.0-8.0); NEUTROPHILS # 7.4 10^3/uL (1.5-8.5); NEUTROPHILS % 56.6 % (36.0-66.0); PLATELET COUNT, AUTOMATED 716 10^3/uL (150-450); RED BLOOD COUNT 2.67 10^6/uL (4.00-5.40); WHITE BLOOD COUNT 13.1 10^3/uL (4.0-10.0)
[2024-11-27 05:36] LABS: ALKALINE PHOSPHATASE 260 U/L (35-104); ALT/SGPT 148 U/L (7.0-40); AST/SGOT 95 U/L (<34); BILIRUBIN,TOTAL 1.3 MG/DL (0.3-1.2); BLOOD UREA NITROGEN 18 MG/DL (9-23); CALCIUM LEVEL 9.5 MG/DL (8.5-10.1); CARBON DIOXIDE LEVEL 26 MMOL/L (20-31); CHLORIDE LEVEL 104 MMOL/L (98-107); CREATININE FOR GFR 0.45 MG/DL (0.55-1.30); GLOMERULAR FILTRATION RATE > 60.0 (>60); GLUCOSE, FASTING 140 MG/DL (60-100); MAGNESIUM LEVEL 1.9 MG/DL (1.8-2.4); POTASSIUM SERUM 4.5 MMOL/L (3.5-5.1); SODIUM LEVEL 134 MMOL/L (136-145); TOTAL PROTEIN 7.1 G/DL (5.7-8.2)
[2024-11-27] MEDS: INSULIN LISPRO (NovoLOG) PER UNIT SC SCH (18:00)
[2024-11-27] MEDS: SODIUM CHLORIDE IV SCH (18:31)
[2024-11-27] MEDS: FAT EMULSION IV 250 ML IV ONE (18:31)
[2024-11-27] MEDS: [UNRECOGNIZED DRUG - OTHER] IV SCH (18:31)
[2024-11-27] MEDS: SODIUM ACETATE IV SCH (18:31)
[2024-11-27 18:56] LABS: VITAMIN E(ALPHA TOCOPHEROL) 10.3 mg/L (5.7-19.9); VITAMIN E(GAMMA TOCOPHEROL) 2.8 mg/L (<=4.3)
[2024-11-27] MEDS ORDERED: GLUCOSE 4 GM CHEW PO PRN (21:30)
[2024-11-27] MEDS ORDERED: GLUCAGON INJ 1MG VIAL SC PRN (21:30)
[2024-11-28] VITALS (7 sets, daily range): BP systolic 99–131; BP diastolic 56–75; TEMP 98.3–99.5; O2SAT 95–98
[2024-11-28] MEDS: LORazepam 1 MG TAB PO PRN (01:50)
[2024-11-28] MEDS: diphenhydrAMINE 50MG/ML VIAL IV PRN ×2 (05:33→13:24)
[2024-11-28 07:59] LABS: BASO # 0.1 10^3/uL (0.0-0.2); EOS # 0.1 10^3/uL (0.0-0.5); EOS % 0.9 % (0.0-3.0); HEMOGLOBIN 8.2 g/dl (12.0-15.5); LYMPH # 2.4 10^3/uL (1.5-5.0); LYMPH % 18.6 % (24.0-44.0); MEAN CORPUSCULAR HEMOGLOBIN 30.6 pg (27.0-33.0); MEAN CORPUSCULAR HGB CONC 34.2 g/dl (32.0-36.5); MEAN CORPUSCULAR VOLUME 89.6 fl (80.0-96.0); MONO # 0.8 10^3/uL (0.0-0.8); MONO % 6.3 % (2.0-8.0); NEUTROPHILS # 8.7 10^3/uL (1.5-8.5); NEUTROPHILS % 68.7 % (36.0-66.0); PLATELET COUNT, AUTOMATED 691 10^3/uL (150-450); RED BLOOD COUNT 2.68 10^6/uL (4.00-5.40); WHITE BLOOD COUNT 12.7 10^3/uL (4.0-10.0)
[2024-11-28 08:15] LABS: MAGNESIUM LEVEL 1.9 MG/DL (1.8-2.4); PHOSPHORUS LEVEL 4.3 MG/DL (2.5-4.9)
[2024-11-28] MEDS: MORPHINE 2 MG/ML 1ML VIAL IV SCH (14:07)
[2024-11-28] MEDS: MORPHINE 2 MG/ML 1ML VIAL IV PRN (15:23)
[2024-11-28 17:58] LABS: ALBUMIN 3.2 G/DL (3.2-5.2); ALKALINE PHOSPHATASE 246 U/L (35-104); ALT/SGPT 123 U/L (7.0-40); AST/SGOT 59 U/L (<34); BILIRUBIN,TOTAL 1.5 MG/DL (0.3-1.2); BLOOD UREA NITROGEN 20 MG/DL (9-23); CALCIUM LEVEL 9.8 MG/DL (8.5-10.1); CARBON DIOXIDE LEVEL 27 MMOL/L (20-31); CHLORIDE LEVEL 106 MMOL/L (98-107); CREATININE FOR GFR 0.45 MG/DL (0.55-1.30); GLOMERULAR FILTRATION RATE > 60.0 (>60); GLUCOSE, FASTING 110 MG/DL (60-100); POTASSIUM SERUM 4.7 MMOL/L (3.5-5.1); SODIUM LEVEL 137 MMOL/L (136-145); TOTAL PROTEIN 7.6 G/DL (5.7-8.2)
[2024-11-28] MEDS: INSULIN LISPRO (NovoLOG) PER UNIT SC SCH (18:00)
[2024-11-28] MEDS: SODIUM CHLORIDE IV SCH (18:30)
[2024-11-28] MEDS: SODIUM ACETATE IV SCH (18:30)
[2024-11-28] MEDS: [UNRECOGNIZED DRUG - OTHER] IV SCH (18:30)
[2024-11-28] MEDS: FAT EMULSION IV 250 ML IV ONE (18:47)
[2024-11-28] MEDS: diphenhydrAMINE 50MG/ML VIAL IV SCH (20:23)
[2024-11-29 03:52] VITALS: BP 105/63; TEMP 98.4; O2SAT 97
[2024-11-29 08:00] VITALS: BP 100/59; TEMP 98.4; O2SAT 96
[2024-11-29 08:12] LABS: HEMATOCRIT 24.4 % (36.0-47.0); HEMOGLOBIN 8.4 g/dl (12.0-15.5); MEAN CORPUSCULAR HEMOGLOBIN 31.2 pg (27.0-33.0); MEAN CORPUSCULAR HGB CONC 34.4 g/dl (32.0-36.5); MEAN CORPUSCULAR VOLUME 90.7 fl (80.0-96.0); PLATELET COUNT, AUTOMATED 650 10^3/uL (150-450); RED BLOOD COUNT 2.69 10^6/uL (4.00-5.40); WHITE BLOOD COUNT 8.9 10^3/uL (4.0-10.0)
[2024-11-29 08:34] LABS: ALBUMIN 3.2 G/DL (3.2-5.2); ALKALINE PHOSPHATASE 242 U/L (35-104); ALT/SGPT 117 U/L (7.0-40); AST/SGOT 60 U/L (<34); BILIRUBIN,TOTAL 1.2 MG/DL (0.3-1.2); BLOOD UREA NITROGEN 23 MG/DL (9-23); CALCIUM LEVEL 9.7 MG/DL (8.5-10.1); CARBON DIOXIDE LEVEL 26 MMOL/L (20-31); CHLORIDE LEVEL 101 MMOL/L (98-107); CREATININE FOR GFR 0.43 MG/DL (0.55-1.30); GLOMERULAR FILTRATION RATE > 60.0 (>60); GLUCOSE, FASTING 106 MG/DL (60-100); POTASSIUM SERUM 4.7 MMOL/L (3.5-5.1); SODIUM LEVEL 137 MMOL/L (136-145); TOTAL PROTEIN 8.1 G/DL (5.7-8.2)
[2024-11-29 12:00] VITALS: BP 109/59; TEMP 98.7; O2SAT 96
[2024-11-29] MEDS: MORPHINE 2 MG/ML 1ML VIAL IV SCH (12:05)
[2024-11-29] MEDS: PROMETHAZINE 25MG/ML 1ML VIAL IV SCH (13:35)
[2024-11-29] MEDS: MORPHINE 2 MG/ML 1ML VIAL IV PRN (14:25)
[2024-11-29 16:00] VITALS: BP 105/61; TEMP 99.5; O2SAT 96
[2024-11-29] MEDS: FAT EMULSION IV 250 ML IV ONE (17:22)
[2024-11-29] MEDS: SODIUM ACETATE IV SCH (17:22)
[2024-11-29] MEDS: SODIUM CHLORIDE IV SCH (17:22)
[2024-11-29] MEDS: [UNRECOGNIZED DRUG - OTHER] IV SCH (17:22)
[2024-11-29] MEDS: DEXTROSE 50% 50ML SYRINGE IV PRN (17:55)
[2024-11-29 20:51] VITALS: BP 102/59; TEMP 97.7; O2SAT 95
[2024-11-29] MEDS: PREGABALIN 75 MG CAP(LYRICA) PO SCH (21:00)
[2024-11-30] VITALS (7 sets, daily range): BP systolic 99–105; BP diastolic 53–64; TEMP 97.9–98.9; O2SAT 95–98
[2024-11-30 06:43] LABS: HEMATOCRIT 24.1 % (36.0-47.0); HEMOGLOBIN 8.1 g/dl (12.0-15.5); MEAN CORPUSCULAR HEMOGLOBIN 30.8 pg (27.0-33.0); MEAN CORPUSCULAR HGB CONC 33.6 g/dl (32.0-36.5); MEAN CORPUSCULAR VOLUME 91.6 fl (80.0-96.0); RED BLOOD COUNT 2.63 10^6/uL (4.00-5.40); WHITE BLOOD COUNT 7.6 10^3/uL (4.0-10.0)
[2024-11-30 06:50] LABS: PLATELET COUNT, AUTOMATED 542 10^3/uL (150-450)
[2024-11-30 06:56] LABS: ALBUMIN 3.1 G/DL (3.2-5.2); ALKALINE PHOSPHATASE 283 U/L (35-104); ALT/SGPT 110 U/L (7.0-40); AST/SGOT 65 U/L (<34); BILIRUBIN,TOTAL 1.2 MG/DL (0.3-1.2); BLOOD UREA NITROGEN 26 MG/DL (9-23); CALCIUM LEVEL 9.2 MG/DL (8.5-10.1); CARBON DIOXIDE LEVEL 27 MMOL/L (20-31); CHLORIDE LEVEL 103 MMOL/L (98-107); CREATININE FOR GFR 0.48 MG/DL (0.55-1.30); GLOMERULAR FILTRATION RATE > 60.0 (>60); GLUCOSE, FASTING 106 MG/DL (60-100); POTASSIUM SERUM 4.4 MMOL/L (3.5-5.1); SODIUM LEVEL 139 MMOL/L (136-145); TOTAL PROTEIN 7.3 G/DL (5.7-8.2)
[2024-11-30] MEDS: FAT EMULSION IV 250 ML IV ONE (18:45)
[2024-11-30] MEDS: [UNRECOGNIZED DRUG - OTHER] IV SCH (18:45)
[2024-11-30] MEDS: SODIUM ACETATE IV SCH (18:45)
[2024-11-30] MEDS: SODIUM CHLORIDE IV SCH (18:45)
[2024-12-01] VITALS (8 sets, daily range): BP systolic 92–112; BP diastolic 55–68; TEMP 98–100.7; O2SAT 57–98
[2024-12-01 04:53] LABS: HEMATOCRIT 24.8 % (36.0-47.0); HEMOGLOBIN 8.4 g/dl (12.0-15.5); MEAN CORPUSCULAR HEMOGLOBIN 32.1 pg (27.0-33.0); MEAN CORPUSCULAR HGB CONC 33.9 g/dl (32.0-36.5); MEAN CORPUSCULAR VOLUME 94.7 fl (80.0-96.0); PLATELET COUNT, AUTOMATED 510 10^3/uL (150-450); RED BLOOD COUNT 2.62 10^6/uL (4.00-5.40); WHITE BLOOD COUNT 7.5 10^3/uL (4.0-10.0)
[2024-12-01 05:21] LABS: ALBUMIN 3.1 G/DL (3.2-5.2); ALKALINE PHOSPHATASE 306 U/L (35-104); ALT/SGPT 123 U/L (7.0-40); AST/SGOT 76 U/L (<34); BILIRUBIN,TOTAL 1.3 MG/DL (0.3-1.2); BLOOD UREA NITROGEN 25 MG/DL (9-23); CARBON DIOXIDE LEVEL 26 MMOL/L (20-31); CHLORIDE LEVEL 103 MMOL/L (98-107); CREATININE FOR GFR 0.46 MG/DL (0.55-1.30); GLOMERULAR FILTRATION RATE > 60.0 (>60); GLUCOSE, FASTING 98 MG/DL (60-100); POTASSIUM SERUM 4.6 MMOL/L (3.5-5.1); SODIUM LEVEL 138 MMOL/L (136-145); TOTAL PROTEIN 7.4 G/DL (5.7-8.2)
[2024-12-01] MEDS: NS (Normal Saline) 0.9% 1,000 ML IV SCH (14:12)
[2024-12-01] MEDS: SODIUM ACETATE IV SCH (19:28)
[2024-12-01] MEDS: [UNRECOGNIZED DRUG - OTHER] IV SCH (19:28)
[2024-12-01] MEDS: FAT EMULSION IV 250 ML IV ONE (19:28)
[2024-12-01] MEDS: SODIUM CHLORIDE IV SCH (19:28)
[2024-12-01 20:09] LABS: INR 0.93; PARTIAL THROMBOPLASTIN TIME 20.5 SECONDS (24.8-34.2); PROTHROMBIN TIME 12.8 SECONDS (12.5-14.5)
[2024-12-01] MEDS: ENOXAPARIN 60MG/0.6ML SYRINGE (J1650 PER 10MG) SC SCH (21:17)
[2024-12-02 03:33] VITALS: BP 108/67; TEMP 98.5; O2SAT 99
[2024-12-02 07:48] LABS: HEMATOCRIT 23.2 % (36.0-47.0); HEMOGLOBIN 7.7 g/dl (12.0-15.5); MEAN CORPUSCULAR HEMOGLOBIN 31.7 pg (27.0-33.0); MEAN CORPUSCULAR HGB CONC 33.2 g/dl (32.0-36.5); MEAN CORPUSCULAR VOLUME 95.5 fl (80.0-96.0); PLATELET COUNT, AUTOMATED 389 10^3/uL (150-450); RED BLOOD COUNT 2.43 10^6/uL (4.00-5.40); WHITE BLOOD COUNT 4.9 10^3/uL (4.0-10.0)
[2024-12-02 08:16] LABS: C REACTIVE PROTEIN QUANTITATIV < 0.50 MG/DL (<1.0)
[2024-12-02 08:18] VITALS: BP 102/68; TEMP 99.9; O2SAT 97
[2024-12-02 08:20] LABS: ALBUMIN 2.8 G/DL (3.2-5.2); ALKALINE PHOSPHATASE 257 U/L (35-104); ALT/SGPT 113 U/L (7.0-40); AST/SGOT 65 U/L (<34); BILIRUBIN,TOTAL 1.3 MG/DL (0.3-1.2); BLOOD UREA NITROGEN 19 MG/DL (9-23); CALCIUM LEVEL 8.9 MG/DL (8.5-10.1); CARBON DIOXIDE LEVEL 26 MMOL/L (20-31); CHLORIDE LEVEL 107 MMOL/L (98-107); CREATININE FOR GFR 0.45 MG/DL (0.55-1.30); GLOMERULAR FILTRATION RATE > 60.0 (>60); GLUCOSE, FASTING 109 MG/DL (60-100); POTASSIUM SERUM 4.2 MMOL/L (3.5-5.1); SODIUM LEVEL 141 MMOL/L (136-145); TOTAL PROTEIN 6.5 G/DL (5.7-8.2)
[2024-12-02 11:37] VITALS: BP 102/59; TEMP 99.3; O2SAT 97
[2024-12-02 16:18] VITALS: BP 108/62; TEMP 99.9; O2SAT 95
[2024-12-02] MEDS: SODIUM CHLORIDE IV SCH (18:09)
[2024-12-02] MEDS: [UNRECOGNIZED DRUG - OTHER] IV SCH (18:09)
[2024-12-02] MEDS: SODIUM ACETATE IV SCH (18:09)
[2024-12-02] MEDS: FAT EMULSION IV 250 ML IV ONE (18:10)
[2024-12-02] MEDS: diphenhydrAMINE 50MG/ML VIAL IV PRN (18:29)
[2024-12-02 20:06] VITALS: BP 107/56; TEMP 100.2; O2SAT 97
[2024-12-02 23:13] VITALS: BP 106/59; TEMP 99.8; O2SAT 96
[2024-12-03] VITALS (7 sets, daily range): BP systolic 97–104; BP diastolic 53–61; TEMP 97.6–100.8; O2SAT 94–97
[2024-12-03] MEDS: OLANZapine ORAL DISINTEGRATING TAB 5MG PO PRN (04:43)
[2024-12-03 08:07] LABS: HEMATOCRIT 23.8 % (36.0-47.0); HEMOGLOBIN 7.9 g/dl (12.0-15.5); MEAN CORPUSCULAR HEMOGLOBIN 31.2 pg (27.0-33.0); MEAN CORPUSCULAR HGB CONC 33.2 g/dl (32.0-36.5); MEAN CORPUSCULAR VOLUME 94.1 fl (80.0-96.0); PLATELET COUNT, AUTOMATED 323 10^3/uL (150-450); RED BLOOD COUNT 2.53 10^6/uL (4.00-5.40); WHITE BLOOD COUNT 5.1 10^3/uL (4.0-10.0)
[2024-12-03 08:40] LABS: ALKALINE PHOSPHATASE 257 U/L (35-104); ALT/SGPT 108 U/L (7.0-40); AST/SGOT 60 U/L (<34); BILIRUBIN,TOTAL 1.4 MG/DL (0.3-1.2); BLOOD UREA NITROGEN 19 MG/DL (9-23); CALCIUM LEVEL 9.3 MG/DL (8.5-10.1); CARBON DIOXIDE LEVEL 27 MMOL/L (20-31); CHLORIDE LEVEL 103 MMOL/L (98-107); CREATININE FOR GFR 0.45 MG/DL (0.55-1.30); GLOMERULAR FILTRATION RATE > 60.0 (>60); GLUCOSE, FASTING 105 MG/DL (60-100); POTASSIUM SERUM 4.3 MMOL/L (3.5-5.1); SODIUM LEVEL 138 MMOL/L (136-145)
[2024-12-03] MEDS: MORPHINE 2 MG/ML 1ML VIAL IV PRN (15:07)
[2024-12-03] MEDS: SODIUM ACETATE IV SCH (18:39)
[2024-12-03] MEDS: FAT EMULSION IV 250 ML IV ONE (18:39)
[2024-12-03] MEDS: [UNRECOGNIZED DRUG - OTHER] IV SCH (18:39)
[2024-12-03] MEDS: SODIUM CHLORIDE IV SCH (18:39)
[2024-12-03] MEDS: OLANZapine ORAL DISINTEGRATING TAB 5MG PO SCH (21:34)
[2024-12-03] MEDS: NYSTATIN 500,000U/5ML SUSP UDC SS SCH (23:38)
[2024-12-04] VITALS (10 sets, daily range): BP systolic 91–111; BP diastolic 51–64; TEMP 98–100.4; O2SAT 95–99
[2024-12-04] MEDS ORDERED: ACETAMINOPHEN *IV* 1,000 MG in IV 1 EA IV ONE (04:50)
[2024-12-04 07:16] LABS: BASO # 0.1 10^3/uL (0.0-0.2); BASO % 0.9 % (0.0-1.0); EOS # 0.3 10^3/uL (0.0-0.5); EOS % 4.7 % (0.0-3.0); HEMATOCRIT 24.3 % (36.0-47.0); LYMPH # 2.1 10^3/uL (1.5-5.0); MEAN CORPUSCULAR HEMOGLOBIN 31.4 pg (27.0-33.0); MEAN CORPUSCULAR HGB CONC 32.9 g/dl (32.0-36.5); MEAN CORPUSCULAR VOLUME 95.3 fl (80.0-96.0); MONO # 0.5 10^3/uL (0.0-0.8); MONO % 9.5 % (2.0-8.0); NEUTROPHILS # 2.5 10^3/uL (1.5-8.5); NEUTROPHILS % 46.4 % (36.0-66.0); PLATELET COUNT, AUTOMATED 275 10^3/uL (150-450); RED BLOOD COUNT 2.55 10^6/uL (4.00-5.40); WHITE BLOOD COUNT 5.5 10^3/uL (4.0-10.0)
[2024-12-04 07:42] LABS: ALKALINE PHOSPHATASE 237 U/L (35-104); ALT/SGPT 97 U/L (7.0-40); AST/SGOT 50 U/L (<34); BILIRUBIN,TOTAL 1.4 MG/DL (0.3-1.2); BLOOD UREA NITROGEN 22 MG/DL (9-23); CALCIUM LEVEL 9.2 MG/DL (8.5-10.1); CARBON DIOXIDE LEVEL 26 MMOL/L (20-31); CHLORIDE LEVEL 103 MMOL/L (98-107); CREATININE FOR GFR 0.47 MG/DL (0.55-1.30); GLOMERULAR FILTRATION RATE > 60.0 (>60); GLUCOSE, FASTING 103 MG/DL (60-100); POTASSIUM SERUM 4.2 MMOL/L (3.5-5.1); SODIUM LEVEL 137 MMOL/L (136-145)
[2024-12-04] MEDS: SODIUM CHLORIDE IV SCH (18:05)
[2024-12-04] MEDS: [UNRECOGNIZED DRUG - OTHER] IV SCH (18:05)
[2024-12-04] MEDS: SODIUM ACETATE IV SCH (18:05)
[2024-12-04] MEDS: FAT EMULSION IV 250 ML IV ONE (18:06)
[2024-12-05 04:39] VITALS: BP 119/59; TEMP 99.3; O2SAT 98
[2024-12-05 06:53] LABS: BASO % 0.7 % (0.0-1.0); EOS # 0.4 10^3/uL (0.0-0.5); EOS % 7.7 % (0.0-3.0); HEMATOCRIT 25.9 % (36.0-47.0); HEMOGLOBIN 8.6 g/dl (12.0-15.5); LYMPH # 1.7 10^3/uL (1.5-5.0); LYMPH % 36.9 % (24.0-44.0); MEAN CORPUSCULAR HEMOGLOBIN 31.7 pg (27.0-33.0); MEAN CORPUSCULAR HGB CONC 33.2 g/dl (32.0-36.5); MEAN CORPUSCULAR VOLUME 95.6 fl (80.0-96.0); MONO # 0.4 10^3/uL (0.0-0.8); MONO % 8.1 % (2.0-8.0); NEUTROPHILS # 2.1 10^3/uL (1.5-8.5); NEUTROPHILS % 46.4 % (36.0-66.0); PLATELET COUNT, AUTOMATED 224 10^3/uL (150-450); RED BLOOD COUNT 2.71 10^6/uL (4.00-5.40); WHITE BLOOD COUNT 4.6 10^3/uL (4.0-10.0)
[2024-12-05 06:56] LABS: ALBUMIN 2.8 G/DL (3.2-5.2); ALKALINE PHOSPHATASE 232 U/L (35-104); ALT/SGPT 88 U/L (7.0-40); AST/SGOT 47 U/L (<34); BILIRUBIN,TOTAL 1.5 MG/DL (0.3-1.2); BLOOD UREA NITROGEN 22 MG/DL (9-23); CALCIUM LEVEL 9.4 MG/DL (8.5-10.1); CARBON DIOXIDE LEVEL 26 MMOL/L (20-31); CHLORIDE LEVEL 102 MMOL/L (98-107); CREATININE FOR GFR 0.47 MG/DL (0.55-1.30); GLOMERULAR FILTRATION RATE > 60.0 (>60); GLUCOSE, FASTING 97 MG/DL (60-100); POTASSIUM SERUM 4.2 MMOL/L (3.5-5.1); SODIUM LEVEL 138 MMOL/L (136-145); TOTAL PROTEIN 7.1 G/DL (5.7-8.2)
[2024-12-05 08:16] VITALS: BP 103/55; TEMP 99.8; O2SAT 97
[2024-12-05 08:53] LABS: MAGNESIUM LEVEL 1.8 MG/DL (1.8-2.4); PHOSPHORUS LEVEL 4.7 MG/DL (2.5-4.9)
[2024-12-05] MEDS: PROMETHAZINE 25MG/ML 1ML VIAL IV ONE (10:15)
[2024-12-05 12:32] VITALS: BP 103/52; TEMP 100.2; O2SAT 95
[2024-12-05] MEDS ORDERED: IMMUNE GLOBULIN 10% 0 GM in IV 1 EA IV SCH (13:10)
[2024-12-05] MEDS ORDERED: ACETAMINOPHEN *IV* 1,000 MG in IV 1 EA IV ONE (15:30)
[2024-12-05] MEDS ORDERED: ONDANSETRON 4MG 2ML VIAL IV ONE (15:30)
[2024-12-05] MEDS ORDERED: diphenhydrAMINE 50MG/ML VIAL IV ONE (15:30)
[2024-12-05 15:53] VITALS: BP 103/57; TEMP 101.1; O2SAT 97
[2024-12-05] MEDS ORDERED: IMMUNE GLOBULIN 10% 40 GM in IV 1 EA IV ONE (16:00)
[2024-12-05 16:19] LABS: IMMUNOGLOBULIN E 73.5 IU/ML (0-378)
[2024-12-05] MEDS: MEROPENEM INJ 1 GM in IV 1 EA IV SCH (17:58)
[2024-12-05] MEDS: FAT EMULSION IV 250 ML IV ONE (18:00)
[2024-12-05] MEDS: SODIUM ACETATE IV SCH (19:33)
[2024-12-05] MEDS: [UNRECOGNIZED DRUG - OTHER] IV SCH (19:33)
[2024-12-05] MEDS: SODIUM CHLORIDE IV SCH (19:33)
[2024-12-05] MEDS: HYDROMORPHONE HCL 0.5 MG/ 0.5 ML SYRINGE IV ONE (19:34)
[2024-12-05 20:22] VITALS: BP 95/54; TEMP 99.5; O2SAT 98
[2024-12-05 22:40] LABS: KETONE, URINE AUTO RFX NEGATIVE (NEGATIVE); NITRITE, URINE AUTO RFX NEGATIVE (NEGATIVE); RBC, URINE AUTO RFX 10 /HPF (0-3); SQUAM EPITHELIAL CELL UR AURFX 0 /HPF (0-6)
[2024-12-05 23:19] LABS: LEUKOCYTE ESTERASE UR AUTO RFX 3+ (NEGATIVE); WBC, URINE AUTO RFX TNTC /HPF (0-3)
[2024-12-05 23:53] VITALS: BP 102/56; TEMP 100.1; O2SAT 96
[2024-12-06] VITALS (9 sets, daily range): BP systolic 88–104; BP diastolic 52–63; TEMP 98.7–101.7; O2SAT 96–98
[2024-12-06] MEDS: diphenhydrAMINE 50MG/ML VIAL IV ONE (00:09)
[2024-12-06 05:42] LABS: BASO % 0.6 % (0.0-1.0); EOS # 0.5 10^3/uL (0.0-0.5); HEMATOCRIT 26.2 % (36.0-47.0); HEMOGLOBIN 8.5 g/dl (12.0-15.5); LYMPH # 1.6 10^3/uL (1.5-5.0); LYMPH % 33.3 % (24.0-44.0); MEAN CORPUSCULAR HEMOGLOBIN 31.7 pg (27.0-33.0); MEAN CORPUSCULAR HGB CONC 32.4 g/dl (32.0-36.5); MEAN CORPUSCULAR VOLUME 97.8 fl (80.0-96.0); MONO # 0.5 10^3/uL (0.0-0.8); MONO % 10.6 % (2.0-8.0); NEUTROPHILS # 2.1 10^3/uL (1.5-8.5); NEUTROPHILS % 44.1 % (36.0-66.0); PLATELET COUNT, AUTOMATED 199 10^3/uL (150-450); RED BLOOD COUNT 2.68 10^6/uL (4.00-5.40); WHITE BLOOD COUNT 4.8 10^3/uL (4.0-10.0)
[2024-12-06 05:47] LABS: ALBUMIN 2.8 G/DL (3.2-5.2); ALKALINE PHOSPHATASE 227 U/L (35-104); ALT/SGPT 88 U/L (7.0-40); AST/SGOT 49 U/L (<34); BILIRUBIN,TOTAL 1.5 MG/DL (0.3-1.2); BLOOD UREA NITROGEN 20 MG/DL (9-23); CALCIUM LEVEL 9.7 MG/DL (8.5-10.1); CARBON DIOXIDE LEVEL 27 MMOL/L (20-31); CHLORIDE LEVEL 102 MMOL/L (98-107); CREATININE FOR GFR 0.47 MG/DL (0.55-1.30); GLOMERULAR FILTRATION RATE > 60.0 (>60); GLUCOSE, FASTING 105 MG/DL (60-100); POTASSIUM SERUM 4.1 MMOL/L (3.5-5.1); SODIUM LEVEL 136 MMOL/L (136-145); TOTAL PROTEIN 7.1 G/DL (5.7-8.2)
[2024-12-06] MEDS: PROMETHAZINE 25MG/ML 1ML VIAL IV ONE (09:36)
[2024-12-06] MEDS: MORPHINE 2 MG/ML 1ML VIAL IV PRN (11:40)
[2024-12-06] MEDS: MORPHINE 10MG/0.5ML ORAL CONCENTRATE SOLUTION U/D SL SCH (13:00)
[2024-12-06] MEDS: PROMETHAZINE 25MG/ML 1ML VIAL IV PRN (15:08)
[2024-12-06] MEDS: MORPHINE 4 MG/ML 1ML VIAL IV PRN (16:41)
[2024-12-06] MEDS: INSULIN LISPRO (NovoLOG) PER UNIT SC SCH (18:00)
[2024-12-06] MEDS: [UNRECOGNIZED DRUG - OTHER] IV SCH (18:08)
[2024-12-06] MEDS: SODIUM CHLORIDE IV SCH (18:08)
[2024-12-06] MEDS: FAT EMULSION IV 250 ML IV ONE (18:08)
[2024-12-06] MEDS: SODIUM ACETATE IV SCH (18:08)
[2024-12-07] VITALS (10 sets, daily range): BP systolic 94–133; BP diastolic 55–69; TEMP 97.9–101.2; O2SAT 94–98
[2024-12-07 05:52] LABS: BASO % 0.9 % (0.0-1.0); EOS # 0.7 10^3/uL (0.0-0.5); EOS % 14.6 % (0.0-3.0); HEMATOCRIT 26.7 % (36.0-47.0); HEMOGLOBIN 8.8 g/dl (12.0-15.5); LYMPH # 1.7 10^3/uL (1.5-5.0); LYMPH % 35.3 % (24.0-44.0); MEAN CORPUSCULAR VOLUME 97.1 fl (80.0-96.0); MONO # 0.6 10^3/uL (0.0-0.8); MONO % 11.8 % (2.0-8.0); NEUTROPHILS # 1.7 10^3/uL (1.5-8.5); NEUTROPHILS % 37.2 % (36.0-66.0); PLATELET COUNT, AUTOMATED 168 10^3/uL (150-450); RED BLOOD COUNT 2.75 10^6/uL (4.00-5.40); WHITE BLOOD COUNT 4.7 10^3/uL (4.0-10.0)
[2024-12-07 06:08] LABS: ALBUMIN 2.8 G/DL (3.2-5.2); ALKALINE PHOSPHATASE 219 U/L (35-104); ALT/SGPT 84 U/L (7.0-40); AST/SGOT 43 U/L (<34); BILIRUBIN,TOTAL 1.5 MG/DL (0.3-1.2); BLOOD UREA NITROGEN 21 MG/DL (9-23); CALCIUM LEVEL 9.2 MG/DL (8.5-10.1); CARBON DIOXIDE LEVEL 27 MMOL/L (20-31); CHLORIDE LEVEL 102 MMOL/L (98-107); CREATININE FOR GFR 0.45 MG/DL (0.55-1.30); GLOMERULAR FILTRATION RATE > 60.0 (>60); GLUCOSE, FASTING 106 MG/DL (60-100); POTASSIUM SERUM 4.1 MMOL/L (3.5-5.1); SODIUM LEVEL 139 MMOL/L (136-145); TOTAL PROTEIN 6.8 G/DL (5.7-8.2)
[2024-12-07] MEDS ORDERED: EPIDURAL/PCA KEYS XX PRN (10:35)
[2024-12-07] MEDS ORDERED: NALOXONE INJ 0.4MG/1ML VIAL IV PRN (10:35)
[2024-12-07] MEDS ORDERED: ONDANSETRON 4MG 2ML VIAL IV PRN (10:35)
[2024-12-07] MEDS ORDERED: MORPHINE 4 MG/ML 1ML VIAL IV PRN (10:50)
[2024-12-07] MEDS: NS (Normal Saline) 0.9% 1,000 ML IV SCH (13:10)
[2024-12-07] MEDS: MORPHINE 1MG/ML IN 0.9% NACL 100ML IV BAG IV PRN (13:11)
[2024-12-07] MEDS: diphenhydrAMINE 50MG/ML VIAL IV PRN (16:47)
[2024-12-07] MEDS: FAT EMULSION IV 250 ML IV ONE (17:36)
[2024-12-07] MEDS: SODIUM ACETATE IV SCH (17:36)
[2024-12-07] MEDS: SODIUM CHLORIDE IV SCH (17:36)
[2024-12-07] MEDS: [UNRECOGNIZED DRUG - OTHER] IV SCH (17:36)
[2024-12-07] MEDS: INSULIN LISPRO (NovoLOG) PER UNIT SC SCH (17:37)
[2024-12-07] MEDS: LACOSAMIDE 10MG/ML 20ML VIAL (VIMPAT) IV SCH (21:11)
[2024-12-08 03:40] VITALS: BP 95/56; TEMP 99.3; O2SAT 94
[2024-12-08 05:48] LABS: BASO % 0.6 % (0.0-1.0); EOS # 0.7 10^3/uL (0.0-0.5); EOS % 14.3 % (0.0-3.0); HEMATOCRIT 25.1 % (36.0-47.0); HEMOGLOBIN 8.1 g/dl (12.0-15.5); LYMPH # 1.7 10^3/uL (1.5-5.0); MEAN CORPUSCULAR HEMOGLOBIN 31.5 pg (27.0-33.0); MEAN CORPUSCULAR HGB CONC 32.3 g/dl (32.0-36.5); MEAN CORPUSCULAR VOLUME 97.7 fl (80.0-96.0); MONO # 0.6 10^3/uL (0.0-0.8); MONO % 12.4 % (2.0-8.0); NEUTROPHILS # 1.8 10^3/uL (1.5-8.5); NEUTROPHILS % 37.3 % (36.0-66.0); PLATELET COUNT, AUTOMATED 167 10^3/uL (150-450); RED BLOOD COUNT 2.57 10^6/uL (4.00-5.40); WHITE BLOOD COUNT 4.7 10^3/uL (4.0-10.0)
[2024-12-08 06:06] LABS: ALBUMIN 2.7 G/DL (3.2-5.2); ALKALINE PHOSPHATASE 200 U/L (35-104); ALT/SGPT 71 U/L (7.0-40); AST/SGOT 37 U/L (<34); BILIRUBIN,TOTAL 1.3 MG/DL (0.3-1.2); BLOOD UREA NITROGEN 19 MG/DL (9-23); CALCIUM LEVEL 9.5 MG/DL (8.5-10.1); CARBON DIOXIDE LEVEL 28 MMOL/L (20-31); CHLORIDE LEVEL 104 MMOL/L (98-107); CREATININE FOR GFR 0.47 MG/DL (0.55-1.30); GLOMERULAR FILTRATION RATE > 60.0 (>60); GLUCOSE, FASTING 113 MG/DL (60-100); SODIUM LEVEL 139 MMOL/L (136-145); TOTAL PROTEIN 6.5 G/DL (5.7-8.2)
[2024-12-08 07:28] VITALS: BP 107/56; TEMP 99; O2SAT 95
[2024-12-08] MEDS: CIPROFLOXACIN 400 MG in IV 1 EA IV SCH (09:29)
[2024-12-08] MEDS: MORPHINE 4 MG/ML 1ML VIAL IV SCH ×2 (09:30→15:32)
[2024-12-08 12:13] VITALS: BP 109/61; TEMP 100.1; O2SAT 97
[2024-12-08] MEDS: MORPHINE 2 MG/ML 1ML VIAL IV PRN (13:28)
[2024-12-08 16:00] VITALS: BP 107/58; TEMP 100.7; O2SAT 95
[2024-12-08] MEDS: INSULIN LISPRO (NovoLOG) PER UNIT SC SCH (17:17)
[2024-12-08] MEDS: SODIUM CHLORIDE IV SCH (18:35)
[2024-12-08] MEDS: SODIUM ACETATE IV SCH (18:35)
[2024-12-08] MEDS: FAT EMULSION IV 250 ML IV ONE (18:35)
[2024-12-08] MEDS: [UNRECOGNIZED DRUG - OTHER] IV SCH (18:35)
[2024-12-08 19:40] VITALS: BP 109/51; TEMP 100.1; O2SAT 95
[2024-12-08 23:21] VITALS: BP 99/53; TEMP 99.9; O2SAT 96
[2024-12-09 03:26] VITALS: BP 100/59; TEMP 99.9; O2SAT 96
[2024-12-09 06:10] LABS: MAGNESIUM LEVEL 1.7 MG/DL (1.8-2.4); PHOSPHORUS LEVEL 4.7 MG/DL (2.5-4.9)
[2024-12-09 07:40] VITALS: BP 103/65; TEMP 99.6; O2SAT 96
[2024-12-09 11:55] VITALS: BP 118/63; TEMP 100.1; O2SAT 95
[2024-12-09 14:32] LABS: ALBUMIN 2.7 G/DL (3.2-5.2); ALKALINE PHOSPHATASE 209 U/L (35-104); ALT/SGPT 70 U/L (7.0-40); AST/SGOT 40 U/L (<34); BILIRUBIN,TOTAL 1.3 MG/DL (0.3-1.2); BLOOD UREA NITROGEN 21 MG/DL (9-23); CARBON DIOXIDE LEVEL 26 MMOL/L (20-31); CHLORIDE LEVEL 102 MMOL/L (98-107); CREATININE FOR GFR 0.44 MG/DL (0.55-1.30); GLOMERULAR FILTRATION RATE > 60.0 (>60); GLUCOSE, FASTING 113 MG/DL (60-100); POTASSIUM SERUM 4.2 MMOL/L (3.5-5.1); SODIUM LEVEL 137 MMOL/L (136-145); TOTAL PROTEIN 6.6 G/DL (5.7-8.2)
[2024-12-09 15:09] LABS: C REACTIVE PROTEIN QUANTITATIV 0.55 MG/DL (<1.0)
[2024-12-09 16:02] VITALS: BP 95/52; TEMP 101; O2SAT 97
[2024-12-09] MEDS: [UNRECOGNIZED DRUG - OTHER] IV SCH (18:48)
[2024-12-09] MEDS: FAT EMULSION IV 250 ML IV ONE (18:48)
[2024-12-09] MEDS: SODIUM CHLORIDE IV SCH (18:48)
[2024-12-09] MEDS: SODIUM ACETATE IV SCH (18:48)
[2024-12-09 20:23] VITALS: BP 110/63; TEMP 101.2; O2SAT 97
[2024-12-09 23:37] VITALS: BP 100/57; TEMP 100; O2SAT 96
[2024-12-10 03:48] VITALS: BP 101/59; TEMP 97.1; O2SAT 97
[2024-12-10 06:19] LABS: MAGNESIUM LEVEL 1.8 MG/DL (1.8-2.4); PHOSPHORUS LEVEL 5.3 MG/DL (2.5-4.9)
[2024-12-10 08:01] VITALS: BP 101/55; TEMP 99.1; O2SAT 96
[2024-12-10 11:28] LABS: BASO % 0.7 % (0.0-1.0); EOS # 0.7 10^3/uL (0.0-0.5); EOS % 16.2 % (0.0-3.0); HEMATOCRIT 26.6 % (36.0-47.0); HEMOGLOBIN 8.5 g/dl (12.0-15.5); LYMPH # 1.5 10^3/uL (1.5-5.0); LYMPH % 34.7 % (24.0-44.0); MEAN CORPUSCULAR HEMOGLOBIN 31.3 pg (27.0-33.0); MEAN CORPUSCULAR VOLUME 97.8 fl (80.0-96.0); MONO # 0.6 10^3/uL (0.0-0.8); MONO % 14.6 % (2.0-8.0); NEUTROPHILS # 1.5 10^3/uL (1.5-8.5); NEUTROPHILS % 33.3 % (36.0-66.0); PLATELET COUNT, AUTOMATED 213 10^3/uL (150-450); RED BLOOD COUNT 2.72 10^6/uL (4.00-5.40); WHITE BLOOD COUNT 4.4 10^3/uL (4.0-10.0)
[2024-12-10 11:33] LABS: ERYTHROCYTE SEDIMENTATION RATE 37 mm/hr (0-20)
[2024-12-10 11:38] VITALS: BP 110/60; TEMP 99.9; O2SAT 97
[2024-12-10 11:41] LABS: C REACTIVE PROTEIN QUANTITATIV 0.63 MG/DL (<1.0)
[2024-12-10 11:42] LABS: ALBUMIN 2.6 G/DL (3.2-5.2); ALKALINE PHOSPHATASE 220 U/L (35-104); ALT/SGPT 72 U/L (7.0-40); AST/SGOT 42 U/L (<34); BILIRUBIN,TOTAL 1.3 MG/DL (0.3-1.2); BLOOD UREA NITROGEN 21 MG/DL (9-23); CALCIUM LEVEL 9.6 MG/DL (8.5-10.1); CARBON DIOXIDE LEVEL 25 MMOL/L (20-31); CHLORIDE LEVEL 105 MMOL/L (98-107); CREATININE FOR GFR 0.47 MG/DL (0.55-1.30); GLOMERULAR FILTRATION RATE > 60.0 (>60); GLUCOSE, FASTING 104 MG/DL (60-100); PREALBUMIN 17.8 MG/DL (10.0-40.0); SODIUM LEVEL 140 MMOL/L (136-145); TOTAL PROTEIN 6.7 G/DL (5.7-8.2)
[2024-12-10] MEDS: LR 1,000 ML IV ONE (12:46)
[2024-12-10 13:30] LABS: PROCALCITONIN 0.18 ng/ml
[2024-12-10] MEDS: MORPHINE 10MG/0.5ML ORAL CONCENTRATE SOLUTION U/D SL SCH (13:45)
[2024-12-10] MEDS: MORPHINE 10 MG/ML 1ML VIAL IV PRN (14:43)
[2024-12-10 15:37] LABS: CYTOMEGALOVIRUS IgM ANTIBODY < 30.00 AU/mL (<30.00)
[2024-12-10 15:44] VITALS: BP 114/60; TEMP 100; O2SAT 97
[2024-12-10] MEDS: FAT EMULSION IV 250 ML IV ONE (17:25)
[2024-12-10] MEDS: SODIUM CHLORIDE IV SCH (17:26)
[2024-12-10] MEDS: SODIUM ACETATE IV SCH (17:26)
[2024-12-10] MEDS: [UNRECOGNIZED DRUG - OTHER] IV SCH (17:26)
[2024-12-10 19:52] VITALS: BP 102/57; TEMP 98.6; O2SAT 97
[2024-12-10 23:36] VITALS: TEMP 99.1
[2024-12-11 03:24] VITALS: BP 109/57; TEMP 100.5; O2SAT 97
[2024-12-11 07:37] VITALS: BP 98/61; TEMP 98.6; O2SAT 96
[2024-12-11 07:44] LABS: BASO % 0.7 % (0.0-1.0); EOS # 0.7 10^3/uL (0.0-0.5); EOS % 14.9 % (0.0-3.0); HEMATOCRIT 24.4 % (36.0-47.0); HEMOGLOBIN 7.9 g/dl (12.0-15.5); LYMPH # 1.5 10^3/uL (1.5-5.0); LYMPH % 32.2 % (24.0-44.0); MEAN CORPUSCULAR HEMOGLOBIN 30.9 pg (27.0-33.0); MEAN CORPUSCULAR HGB CONC 32.4 g/dl (32.0-36.5); MEAN CORPUSCULAR VOLUME 95.3 fl (80.0-96.0); MONO # 0.5 10^3/uL (0.0-0.8); MONO % 11.8 % (2.0-8.0); NEUTROPHILS # 1.8 10^3/uL (1.5-8.5); PLATELET COUNT, AUTOMATED 217 10^3/uL (150-450); RED BLOOD COUNT 2.56 10^6/uL (4.00-5.40); WHITE BLOOD COUNT 4.5 10^3/uL (4.0-10.0)
[2024-12-11 07:58] LABS: INR 1.01; PARTIAL THROMBOPLASTIN TIME 33.6 SECONDS (24.8-34.2); PROTHROMBIN TIME 13.6 SECONDS (12.5-14.5)
[2024-12-11] MEDS: MIDODRINE 5 MG TAB PO SCH (08:00)
[2024-12-11 08:09] LABS: TOTAL PROTEIN 6.5 G/DL (5.7-8.2)
[2024-12-11 08:30] LABS: BLOOD UREA NITROGEN 18 MG/DL (9-23); CALCIUM LEVEL 9.3 MG/DL (8.5-10.1); CARBON DIOXIDE LEVEL 26 MMOL/L (20-31); CHLORIDE LEVEL 105 MMOL/L (98-107); CREATININE FOR GFR 0.49 MG/DL (0.55-1.30); GLOMERULAR FILTRATION RATE > 60.0 (>60); GLUCOSE, FASTING 113 MG/DL (60-100); MAGNESIUM LEVEL 1.6 MG/DL (1.8-2.4); PHOSPHORUS LEVEL 4.9 MG/DL (2.5-4.9); POTASSIUM SERUM 4.3 MMOL/L (3.5-5.1); SODIUM LEVEL 138 MMOL/L (136-145)
[2024-12-11] MEDS: MORPHINE 10MG/0.5ML ORAL CONCENTRATE SOLUTION U/D SL SCH (12:26)
[2024-12-11 14:10] VITALS: TEMP 102.2
[2024-12-11] MEDS: NS 500 ML IV ONE (14:44)
[2024-12-11 15:11] LABS: KETONE, URINE AUTO RFX NEGATIVE (NEGATIVE); LEUKOCYTE ESTERASE UR AUTO RFX TRACE (NEGATIVE); NITRITE, URINE AUTO RFX NEGATIVE (NEGATIVE); RBC, URINE AUTO RFX 3 /HPF (0-3); SQUAM EPITHELIAL CELL UR AURFX 0 /HPF (0-6); WBC, URINE AUTO RFX 6 /HPF (0-3); YEAST LIKE CELL URINE AUTO RFX LARGE
[2024-12-11 15:29] VITALS: TEMP 101.6
[2024-12-11 15:35] LABS: C REACTIVE PROTEIN QUANTITATIV 0.68 MG/DL (<1.0)
[2024-12-11 15:42] LABS: PROCALCITONIN 0.15 ng/ml
[2024-12-11 15:54] VITALS: BP 102/54; TEMP 100.6; O2SAT 95
[2024-12-11] MEDS: MAG SULF 1GM/100ML (MAG RUN) 1 GM in IV 1 EA IV ONE (16:28)
[2024-12-11] MEDS: SODIUM CHLORIDE IV SCH (18:37)
[2024-12-11] MEDS: FAT EMULSION IV 250 ML IV ONE (18:37)
[2024-12-11] MEDS: SODIUM ACETATE IV SCH (18:37)
[2024-12-11] MEDS: [UNRECOGNIZED DRUG - OTHER] IV SCH (18:37)
[2024-12-11 19:39] LABS: FUNGITELL INTERPRETATION NEGATIVE (NEGATIVE); FUNGITELL, SERUM 51 pg/mL (<60)
[2024-12-11 19:53] VITALS: BP 98/56; TEMP 102; O2SAT 96
[2024-12-11] MEDS: MORPHINE 2 MG/ML 1ML VIAL IV SCH (20:06)
[2024-12-12] VITALS (7 sets, daily range): BP systolic 95–107; BP diastolic 54–59; TEMP 98–101.2; O2SAT 95–100
[2024-12-12] MEDS: DAPTOmycin 400 MG in NS 50 ML IV SCH (01:18)
[2024-12-12 07:19] LABS: BASO % 0.4 % (0.0-1.0); EOS # 0.7 10^3/uL (0.0-0.5); EOS % 13.9 % (0.0-3.0); HEMATOCRIT 26.9 % (36.0-47.0); HEMOGLOBIN 8.7 g/dl (12.0-15.5); LYMPH # 1.7 10^3/uL (1.5-5.0); LYMPH % 33.7 % (24.0-44.0); MEAN CORPUSCULAR HEMOGLOBIN 31.4 pg (27.0-33.0); MEAN CORPUSCULAR HGB CONC 32.3 g/dl (32.0-36.5); MEAN CORPUSCULAR VOLUME 97.1 fl (80.0-96.0); MONO # 0.7 10^3/uL (0.0-0.8); MONO % 13.7 % (2.0-8.0); NEUTROPHILS # 1.9 10^3/uL (1.5-8.5); NEUTROPHILS % 37.9 % (36.0-66.0); PLATELET COUNT, AUTOMATED 258 10^3/uL (150-450); RED BLOOD COUNT 2.77 10^6/uL (4.00-5.40)
[2024-12-12 07:52] LABS: BLOOD UREA NITROGEN 19 MG/DL (9-23); CALCIUM LEVEL 9.4 MG/DL (8.5-10.1); CARBON DIOXIDE LEVEL 28 MMOL/L (20-31); CHLORIDE LEVEL 102 MMOL/L (98-107); CREATININE FOR GFR 0.47 MG/DL (0.55-1.30); GLOMERULAR FILTRATION RATE > 60.0 (>60); GLUCOSE, FASTING 106 MG/DL (60-100); MAGNESIUM LEVEL 1.6 MG/DL (1.8-2.4); POTASSIUM SERUM 4.2 MMOL/L (3.5-5.1); SODIUM LEVEL 138 MMOL/L (136-145)
[2024-12-12] MEDS ORDERED: LACOSAMIDE 10MG/ML 20ML VIAL (VIMPAT) IV STA (09:06)
[2024-12-12] MEDS: MAG SULF 1GM/100ML (MAG RUN) 1 GM in IV 1 EA IV ONE (10:14)
[2024-12-12] MEDS ORDERED: MORPHINE 10 MG/ML 1ML VIAL IM PRN (13:05)
[2024-12-12] MEDS: MORPHINE 4 MG/ML 1ML VIAL IV PRN (14:16)
[2024-12-12] MEDS: CEFEPIME HCL 2 GM in DEXTROSE 5% (D5W) ADV/MINI-BAG 50 ML IV SCH (16:26)
[2024-12-12] MEDS: MORPHINE 10 MG/ML 1ML VIAL IV SCH (16:27)
[2024-12-12] MEDS: FAT EMULSION IV 250 ML IV ONE (17:51)
[2024-12-12] MEDS: [UNRECOGNIZED DRUG - OTHER] IV SCH (17:52)
[2024-12-12] MEDS: SODIUM ACETATE IV SCH (17:52)
[2024-12-12] MEDS: SODIUM CHLORIDE IV SCH (17:52)
[2024-12-12] MEDS: TRIAMCINOLONE ACET 0.1% OINTMENT 15GM TOP SCH (20:26)
[2024-12-12] MEDS: VANICREAM MOISTURIZING SKIN CREAM 113GM TUBE TOP SCH (20:26)
[2024-12-13] VITALS (7 sets, daily range): BP systolic 95–106; BP diastolic 52–61; TEMP 98.4–101.1; O2SAT 95–100
[2024-12-13 06:37] LABS: BASO % 0.6 % (0.0-1.0); EOS # 0.6 10^3/uL (0.0-0.5); EOS % 12.5 % (0.0-3.0); HEMATOCRIT 26.9 % (36.0-47.0); HEMOGLOBIN 8.7 g/dl (12.0-15.5); LYMPH # 1.1 10^3/uL (1.5-5.0); LYMPH % 24.2 % (24.0-44.0); MEAN CORPUSCULAR HEMOGLOBIN 31.1 pg (27.0-33.0); MEAN CORPUSCULAR HGB CONC 32.3 g/dl (32.0-36.5); MEAN CORPUSCULAR VOLUME 96.1 fl (80.0-96.0); MONO # 0.6 10^3/uL (0.0-0.8); MONO % 12.7 % (2.0-8.0); NEUTROPHILS # 2.3 10^3/uL (1.5-8.5); NEUTROPHILS % 49.6 % (36.0-66.0); PLATELET COUNT, AUTOMATED 285 10^3/uL (150-450); WHITE BLOOD COUNT 4.7 10^3/uL (4.0-10.0)
[2024-12-13 07:11] LABS: BLOOD UREA NITROGEN 21 MG/DL (9-23); CALCIUM LEVEL 9.4 MG/DL (8.5-10.1); CARBON DIOXIDE LEVEL 28 MMOL/L (20-31); CHLORIDE LEVEL 101 MMOL/L (98-107); CREATININE FOR GFR 0.48 MG/DL (0.55-1.30); GLOMERULAR FILTRATION RATE > 60.0 (>60); GLUCOSE, FASTING 108 MG/DL (60-100); MAGNESIUM LEVEL 1.6 MG/DL (1.8-2.4); POTASSIUM SERUM 4.3 MMOL/L (3.5-5.1); SODIUM LEVEL 137 MMOL/L (136-145)
[2024-12-13] MEDS ORDERED: NALOXONE INJ 0.4MG/1ML VIAL IV PRN (07:45)
[2024-12-13 08:06] LABS: ERYTHROCYTE SEDIMENTATION RATE 46 mm/hr (0-20)
[2024-12-13 08:07] LABS: C REACTIVE PROTEIN QUANTITATIV 1.94 MG/DL (<1.0)
[2024-12-13 08:19] LABS: PROCALCITONIN 0.11 ng/ml
[2024-12-13] MEDS ORDERED: cefTAZidime 2 GM in DEXTROSE 5% (D5W) ADV/MINI-BAG 50 ML IV SCH ×2 (11:00→18:00)
[2024-12-13] MEDS ORDERED: CEFIDEROCOL SULFATE TOSYLATE 2 GM in D5W 100 ML IV SCH (16:00)
[2024-12-13] MEDS: CEFIDEROCOL SULFATE TOSYLATE 2 GM in NS 100 ML IV SCH (16:13)
[2024-12-13] MEDS: SODIUM ACETATE IV SCH (18:55)
[2024-12-13] MEDS: SODIUM CHLORIDE IV SCH (18:55)
[2024-12-13] MEDS: [UNRECOGNIZED DRUG - OTHER] IV SCH (18:55)
[2024-12-13] MEDS: FAT EMULSION IV 250 ML IV ONE (18:55)
[2024-12-14] VITALS (9 sets, daily range): BP systolic 97–108; BP diastolic 52–61; TEMP 97.7–102.9; O2SAT 94–97
[2024-12-14 05:58] LABS: BASO % 0.9 % (0.0-1.0); EOS # 0.4 10^3/uL (0.0-0.5); HEMOGLOBIN 7.9 g/dl (12.0-15.5); LYMPH # 0.6 10^3/uL (1.5-5.0); LYMPH % 17.7 % (24.0-44.0); MEAN CORPUSCULAR HEMOGLOBIN 31.6 pg (27.0-33.0); MEAN CORPUSCULAR HGB CONC 32.9 g/dl (32.0-36.5); MONO # 0.6 10^3/uL (0.0-0.8); MONO % 16.5 % (2.0-8.0); NEUTROPHILS # 1.8 10^3/uL (1.5-8.5); PLATELET COUNT, AUTOMATED 277 10^3/uL (150-450); WHITE BLOOD COUNT 3.5 10^3/uL (4.0-10.0)
[2024-12-14 06:30] LABS: BLOOD UREA NITROGEN 19 MG/DL (9-23); CALCIUM LEVEL 8.7 MG/DL (8.5-10.1); CARBON DIOXIDE LEVEL 25 MMOL/L (20-31); CHLORIDE LEVEL 101 MMOL/L (98-107); CREATININE FOR GFR 0.52 MG/DL (0.55-1.30); GLOMERULAR FILTRATION RATE > 60.0 (>60); GLUCOSE, FASTING 104 MG/DL (60-100); MAGNESIUM LEVEL 1.6 MG/DL (1.8-2.4); SODIUM LEVEL 136 MMOL/L (136-145)
[2024-12-14] MEDS: MAG SULF 1GM/100ML (MAG RUN) 1 GM in IV 1 EA IV SCH (09:41)
[2024-12-14] MEDS ORDERED: MAGNESIUM SULFATE 1GM/100ML D5W BAG (10MG/ML) As Ordered ONE (15:54)
[2024-12-14] MEDS: [UNRECOGNIZED DRUG - OTHER] IV SCH (18:45)
[2024-12-14] MEDS: SODIUM CHLORIDE IV SCH (18:45)
[2024-12-14] MEDS: FAT EMULSION IV 250 ML IV ONE (18:45)
[2024-12-14] MEDS: SODIUM ACETATE IV SCH (18:45)
[2024-12-15] VITALS (7 sets, daily range): BP systolic 98–109; BP diastolic 54–65; TEMP 98.7–102; O2SAT 95–99
[2024-12-15 05:25] LABS: BASO % 0.6 % (0.0-1.0); EOS # 0.2 10^3/uL (0.0-0.5); EOS % 6.9 % (0.0-3.0); HEMATOCRIT 25.7 % (36.0-47.0); HEMOGLOBIN 8.4 g/dl (12.0-15.5); LYMPH % 29.1 % (24.0-44.0); MEAN CORPUSCULAR HEMOGLOBIN 30.9 pg (27.0-33.0); MEAN CORPUSCULAR HGB CONC 32.7 g/dl (32.0-36.5); MEAN CORPUSCULAR VOLUME 94.5 fl (80.0-96.0); MONO # 0.7 10^3/uL (0.0-0.8); MONO % 20.7 % (2.0-8.0); NEUTROPHILS # 1.4 10^3/uL (1.5-8.5); NEUTROPHILS % 42.1 % (36.0-66.0); PLATELET COUNT, AUTOMATED 305 10^3/uL (150-450); RED BLOOD COUNT 2.72 10^6/uL (4.00-5.40); WHITE BLOOD COUNT 3.3 10^3/uL (4.0-10.0)
[2024-12-15 05:46] LABS: BLOOD UREA NITROGEN 15 MG/DL (9-23); CALCIUM LEVEL 8.7 MG/DL (8.5-10.1); CARBON DIOXIDE LEVEL 26 MMOL/L (20-31); CHLORIDE LEVEL 104 MMOL/L (98-107); CREATININE FOR GFR 0.44 MG/DL (0.55-1.30); GLOMERULAR FILTRATION RATE > 60.0 (>60); GLUCOSE, FASTING 101 MG/DL (60-100); POTASSIUM SERUM 4.2 MMOL/L (3.5-5.1); SODIUM LEVEL 136 MMOL/L (136-145)
[2024-12-15] MEDS: FAT EMULSION IV 250 ML IV ONE (18:54)
[2024-12-15] MEDS: SODIUM CHLORIDE IV SCH (18:55)
[2024-12-15] MEDS: SODIUM ACETATE IV SCH (18:55)
[2024-12-15] MEDS: [UNRECOGNIZED DRUG - OTHER] IV SCH (18:55)
[2024-12-15 20:12] LABS: STRONGYLOIDES SERUM ANTIBODIES POSITIVE (NEGATIVE)
[2024-12-16 07:37] VITALS: BP 102/55; TEMP 99.6; O2SAT 97
[2024-12-16 09:08] LABS: BASO % 0.3 % (0.0-1.0); EOS # 0.4 10^3/uL (0.0-0.5); EOS % 10.3 % (0.0-3.0); HEMATOCRIT 25.9 % (36.0-47.0); HEMOGLOBIN 8.3 g/dl (12.0-15.5); LYMPH # 1.6 10^3/uL (1.5-5.0); LYMPH % 45.6 % (24.0-44.0); MEAN CORPUSCULAR VOLUME 96.6 fl (80.0-96.0); MONO # 0.6 10^3/uL (0.0-0.8); NEUTROPHILS % 26.9 % (36.0-66.0); PLATELET COUNT, AUTOMATED 296 10^3/uL (150-450); RED BLOOD COUNT 2.68 10^6/uL (4.00-5.40); WHITE BLOOD COUNT 3.5 10^3/uL (4.0-10.0)
[2024-12-16 09:42] LABS: BLOOD UREA NITROGEN 18 MG/DL (9-23); CALCIUM LEVEL 8.7 MG/DL (8.5-10.1); CARBON DIOXIDE LEVEL 27 MMOL/L (20-31); CHLORIDE LEVEL 101 MMOL/L (98-107); CREATININE FOR GFR 0.44 MG/DL (0.55-1.30); GLOMERULAR FILTRATION RATE > 60.0 (>60); GLUCOSE, FASTING 112 MG/DL (60-100); POTASSIUM SERUM 4.2 MMOL/L (3.5-5.1); SODIUM LEVEL 138 MMOL/L (136-145)
[2024-12-16 12:05] VITALS: BP 100/54; TEMP 100.2; O2SAT 95
[2024-12-16 13:14] LABS: C REACTIVE PROTEIN QUANTITATIV 0.97 MG/DL (<1.0)
[2024-12-16 13:23] LABS: SOURCE PERIPHERAL SMEAR
[2024-12-16 13:28] LABS: ERYTHROCYTE SEDIMENTATION RATE 65 mm/hr (0-20)
[2024-12-16 16:08] VITALS: BP 97/59; TEMP 99.7; O2SAT 95
[2024-12-16] MEDS: SODIUM CHLORIDE IV SCH (17:55)
[2024-12-16] MEDS: SODIUM ACETATE IV SCH (17:55)
[2024-12-16] MEDS: [UNRECOGNIZED DRUG - OTHER] IV SCH (17:55)
[2024-12-16] MEDS: FAT EMULSION IV 250 ML IV ONE (17:56)
[2024-12-16] MEDS: D5W/0.45% SODIUM CHLORIDE 1,000 ML IV SCH (18:05)
[2024-12-16 20:00] VITALS: BP 101/60; TEMP 98.2; O2SAT 98
[2024-12-17 04:10] VITALS: BP 98/56; TEMP 98.8; O2SAT 95
[2024-12-17 07:28] LABS: ANA SCREEN, IFA NEGATIVE (NEGATIVE)
[2024-12-17 07:48] VITALS: BP 98/54; TEMP 98.3; O2SAT 98
[2024-12-17 08:37] LABS: BASO % 0.7 % (0.0-1.0); EOS # 0.5 10^3/uL (0.0-0.5); EOS % 11.9 % (0.0-3.0); HEMATOCRIT 27.1 % (36.0-47.0); HEMOGLOBIN 8.7 g/dl (12.0-15.5); LYMPH # 1.9 10^3/uL (1.5-5.0); LYMPH % 47.3 % (24.0-44.0); MEAN CORPUSCULAR HEMOGLOBIN 30.9 pg (27.0-33.0); MEAN CORPUSCULAR HGB CONC 32.1 g/dl (32.0-36.5); MEAN CORPUSCULAR VOLUME 96.1 fl (80.0-96.0); MONO # 0.4 10^3/uL (0.0-0.8); MONO % 10.4 % (2.0-8.0); NEUTROPHILS # 1.2 10^3/uL (1.5-8.5); NEUTROPHILS % 29.2 % (36.0-66.0); PLATELET COUNT, AUTOMATED 333 10^3/uL (150-450); RED BLOOD COUNT 2.82 10^6/uL (4.00-5.40)
[2024-12-17 08:45] LABS: ERYTHROCYTE SEDIMENTATION RATE 88 mm/hr (0-20)
[2024-12-17] MEDS ORDERED: ENOXAPARIN 60MG/0.6ML SYRINGE (J1650 PER 10MG) SC SCH (09:00)
[2024-12-17 09:06] LABS: BLOOD UREA NITROGEN 18 MG/DL (9-23); CARBON DIOXIDE LEVEL 27 MMOL/L (20-31); CHLORIDE LEVEL 99 MMOL/L (98-107); CREATININE FOR GFR 0.58 MG/DL (0.55-1.30); GLOMERULAR FILTRATION RATE > 60.0 (>60); GLUCOSE, FASTING 110 MG/DL (60-100); IMMUNOGLOBULIN A 169.2 MG/DL (40-350); IMMUNOGLOBULIN G 1390 MG/DL (650-1600); POTASSIUM SERUM 4.4 MMOL/L (3.5-5.1); SODIUM LEVEL 136 MMOL/L (136-145)
[2024-12-17 09:53] LABS: PROCALCITONIN 0.21 ng/ml
[2024-12-17 09:55] LABS: IMMUNOGLOBULIN M 668.7 MG/DL (50-300)
[2024-12-17] MEDS: diphenhydrAMINE CREAM 30GM TOP PRN (14:02)
[2024-12-17 15:48] VITALS: BP 97/52; TEMP 97.1; O2SAT 97
[2024-12-17] MEDS: MORPHINE 10 MG/ML 1ML VIAL IV SCH (17:29)
[2024-12-17] MEDS: SODIUM CHLORIDE IV SCH (17:30)
[2024-12-17] MEDS: FAT EMULSION IV 250 ML IV ONE (17:30)
[2024-12-17] MEDS: SODIUM ACETATE IV SCH (17:30)
[2024-12-17] MEDS: [UNRECOGNIZED DRUG - OTHER] IV SCH (17:30)
[2024-12-17] MEDS ORDERED: SODIUM ACETATE IV SCH (18:00)
[2024-12-17] MEDS ORDERED: SODIUM CHLORIDE IV SCH (18:00)
[2024-12-17] MEDS ORDERED: [UNRECOGNIZED DRUG - OTHER] IV SCH (18:00)
[2024-12-17 20:26] VITALS: BP 100/58; TEMP 99; O2SAT 98
[2024-12-17 23:20] VITALS: BP 104/55; TEMP 98.4; O2SAT 97
[2024-12-18 05:43] LABS: BASO % 0.6 % (0.0-1.0); EOS # 0.6 10^3/uL (0.0-0.5); EOS % 11.1 % (0.0-3.0); HEMATOCRIT 28.4 % (36.0-47.0); HEMOGLOBIN 9.4 g/dl (12.0-15.5); LYMPH # 2.3 10^3/uL (1.5-5.0); LYMPH % 46.1 % (24.0-44.0); MEAN CORPUSCULAR HEMOGLOBIN 31.4 pg (27.0-33.0); MEAN CORPUSCULAR HGB CONC 33.1 g/dl (32.0-36.5); MONO # 0.4 10^3/uL (0.0-0.8); MONO % 8.7 % (2.0-8.0); NEUTROPHILS # 1.6 10^3/uL (1.5-8.5); NEUTROPHILS % 32.9 % (36.0-66.0); PLATELET COUNT, AUTOMATED 380 10^3/uL (150-450); RED BLOOD COUNT 2.99 10^6/uL (4.00-5.40)
[2024-12-18 06:13] LABS: BLOOD UREA NITROGEN 18 MG/DL (9-23); CARBON DIOXIDE LEVEL 26 MMOL/L (20-31); CHLORIDE LEVEL 101 MMOL/L (98-107); CREATININE FOR GFR 0.44 MG/DL (0.55-1.30); GLOMERULAR FILTRATION RATE > 60.0 (>60); GLUCOSE, FASTING 101 MG/DL (60-100); POTASSIUM SERUM 4.5 MMOL/L (3.5-5.1); SODIUM LEVEL 139 MMOL/L (136-145)
[2024-12-18 07:28] VITALS: BP 97/53; TEMP 97.7; O2SAT 97
[2024-12-18 16:19] VITALS: BP 107/61; TEMP 99.2; O2SAT 96
[2024-12-18] MEDS: diphenhydrAMINE 50MG/ML VIAL IV PRN (17:13)
[2024-12-18] MEDS: SODIUM CHLORIDE IV SCH (18:08)
[2024-12-18] MEDS: FAT EMULSION IV 250 ML IV ONE (18:08)
[2024-12-18] MEDS: [UNRECOGNIZED DRUG - OTHER] IV SCH (18:08)
[2024-12-18] MEDS: SODIUM ACETATE IV SCH (18:08)
[2024-12-18] MEDS: KETOROLAC 30 MG/ML 1ML VIAL IV PRN (18:27)
[2024-12-18 20:29] VITALS: BP 104/59; TEMP 97.9; O2SAT 99
[2024-12-18 23:53] VITALS: TEMP 98.1
[2024-12-19 04:11] VITALS: BP 98/56; TEMP 97.9; O2SAT 97
[2024-12-19 06:47] LABS: BASO % 0.5 % (0.0-1.0); EOS # 0.5 10^3/uL (0.0-0.5); EOS % 11.9 % (0.0-3.0); HEMATOCRIT 25.2 % (36.0-47.0); HEMOGLOBIN 8.2 g/dl (12.0-15.5); LYMPH # 1.9 10^3/uL (1.5-5.0); LYMPH % 45.4 % (24.0-44.0); MEAN CORPUSCULAR HEMOGLOBIN 31.2 pg (27.0-33.0); MEAN CORPUSCULAR HGB CONC 32.5 g/dl (32.0-36.5); MEAN CORPUSCULAR VOLUME 95.8 fl (80.0-96.0); MONO # 0.4 10^3/uL (0.0-0.8); MONO % 8.8 % (2.0-8.0); NEUTROPHILS # 1.4 10^3/uL (1.5-8.5); NEUTROPHILS % 32.7 % (36.0-66.0); PLATELET COUNT, AUTOMATED 359 10^3/uL (150-450); RED BLOOD COUNT 2.63 10^6/uL (4.00-5.40); WHITE BLOOD COUNT 4.2 10^3/uL (4.0-10.0)
[2024-12-19 07:06] LABS: BLOOD UREA NITROGEN 20 MG/DL (9-23); CALCIUM LEVEL 8.7 MG/DL (8.5-10.1); CARBON DIOXIDE LEVEL 27 MMOL/L (20-31); CHLORIDE LEVEL 103 MMOL/L (98-107); CREATININE FOR GFR 0.41 MG/DL (0.55-1.30); GLOMERULAR FILTRATION RATE > 60.0 (>60); GLUCOSE, FASTING 109 MG/DL (60-100); POTASSIUM SERUM 4.5 MMOL/L (3.5-5.1); SODIUM LEVEL 140 MMOL/L (136-145)
[2024-12-19 07:21] VITALS: BP 88/57; TEMP 97.7; O2SAT 97
[2024-12-19] MEDS: MORPHINE 4 MG/ML 1ML VIAL IV PRN (10:05)
[2024-12-19] MEDS: MORPHINE 10 MG/ML 1ML VIAL IV SCH (12:30)
[2024-12-19 17:17] VITALS: BP 95/62; TEMP 98.1; O2SAT 95
[2024-12-19] MEDS: MORPHINE 4 MG/ML 1ML VIAL IV SCH (17:45)
[2024-12-19] MEDS: FAT EMULSION IV 250 ML IV ONE (18:50)
[2024-12-19] MEDS: SODIUM ACETATE IV SCH (18:51)
[2024-12-19] MEDS: [UNRECOGNIZED DRUG - OTHER] IV SCH (18:51)
[2024-12-19] MEDS: SODIUM CHLORIDE IV SCH (18:51)
[2024-12-19] MEDS: MORPHINE 2 MG/ML 1ML VIAL IV PRN (18:58)
[2024-12-19 20:31] VITALS: BP 101/58; TEMP 98.8; O2SAT 99
[2024-12-20 04:28] VITALS: BP 98/60; TEMP 98.4; O2SAT 98
[2024-12-20 05:13] LABS: BASO % 0.5 % (0.0-1.0); EOS # 0.7 10^3/uL (0.0-0.5); EOS % 11.5 % (0.0-3.0); HEMATOCRIT 29.2 % (36.0-47.0); HEMOGLOBIN 9.4 g/dl (12.0-15.5); LYMPH # 2.2 10^3/uL (1.5-5.0); LYMPH % 37.8 % (24.0-44.0); MEAN CORPUSCULAR HEMOGLOBIN 30.2 pg (27.0-33.0); MEAN CORPUSCULAR HGB CONC 32.2 g/dl (32.0-36.5); MEAN CORPUSCULAR VOLUME 93.9 fl (80.0-96.0); MONO # 0.4 10^3/uL (0.0-0.8); MONO % 7.3 % (2.0-8.0); NEUTROPHILS # 2.4 10^3/uL (1.5-8.5); NEUTROPHILS % 41.9 % (36.0-66.0); PLATELET COUNT, AUTOMATED 405 10^3/uL (150-450); RED BLOOD COUNT 3.11 10^6/uL (4.00-5.40); WHITE BLOOD COUNT 5.7 10^3/uL (4.0-10.0)
[2024-12-20 05:37] LABS: BLOOD UREA NITROGEN 23 MG/DL (9-23); CARBON DIOXIDE LEVEL 25 MMOL/L (20-31); CHLORIDE LEVEL 101 MMOL/L (98-107); GLOMERULAR FILTRATION RATE > 60.0 (>60); GLUCOSE, FASTING 104 MG/DL (60-100); POTASSIUM SERUM 4.8 MMOL/L (3.5-5.1); SODIUM LEVEL 138 MMOL/L (136-145)
[2024-12-20 07:47] VITALS: BP 111/60; TEMP 97.1; O2SAT 97
[2024-12-20 16:16] VITALS: BP 96/53; TEMP 99.3; O2SAT 98
[2024-12-20] MEDS: SODIUM ACETATE IV SCH (18:52)
[2024-12-20] MEDS: SODIUM CHLORIDE IV SCH (18:52)
[2024-12-20] MEDS: [UNRECOGNIZED DRUG - OTHER] IV SCH (18:52)
[2024-12-20] MEDS: FAT EMULSION IV 250 ML IV ONE (18:52)
[2024-12-20 19:52] VITALS: BP 103/62; TEMP 99.7; O2SAT 98
[2024-12-20 22:02] LABS: MYCOPLASMA PNEUMONIAE IGG 2.05 (<=0.90)
[2024-12-21 04:01] VITALS: BP 100/60; TEMP 96.9; O2SAT 100
[2024-12-21 04:53] LABS: BASO % 0.6 % (0.0-1.0); EOS # 0.7 10^3/uL (0.0-0.5); EOS % 14.2 % (0.0-3.0); HEMATOCRIT 27.8 % (36.0-47.0); LYMPH % 42.6 % (24.0-44.0); MEAN CORPUSCULAR HEMOGLOBIN 31.1 pg (27.0-33.0); MEAN CORPUSCULAR HGB CONC 32.4 g/dl (32.0-36.5); MEAN CORPUSCULAR VOLUME 96.2 fl (80.0-96.0); MONO # 0.4 10^3/uL (0.0-0.8); MONO % 7.7 % (2.0-8.0); NEUTROPHILS # 1.6 10^3/uL (1.5-8.5); NEUTROPHILS % 34.3 % (36.0-66.0); PLATELET COUNT, AUTOMATED 347 10^3/uL (150-450); RED BLOOD COUNT 2.89 10^6/uL (4.00-5.40); WHITE BLOOD COUNT 4.7 10^3/uL (4.0-10.0)
[2024-12-21 05:21] LABS: BLOOD UREA NITROGEN 19 MG/DL (9-23); CALCIUM LEVEL 9.1 MG/DL (8.5-10.1); CARBON DIOXIDE LEVEL 27 MMOL/L (20-31); CHLORIDE LEVEL 104 MMOL/L (98-107); CREATININE FOR GFR 0.43 MG/DL (0.55-1.30); GLOMERULAR FILTRATION RATE > 60.0 (>60); GLUCOSE, FASTING 112 MG/DL (60-100); POTASSIUM SERUM 4.4 MMOL/L (3.5-5.1); SODIUM LEVEL 141 MMOL/L (136-145)
[2024-12-21 07:43] VITALS: BP 106/56; TEMP 98.6; O2SAT 98
[2024-12-21 15:52] VITALS: BP 111/69; TEMP 99; O2SAT 94
[2024-12-21] MEDS: SULFAMETHOXAZOLE IV SCH (16:15)
[2024-12-21] MEDS: TRIMETHOPRIM IV SCH (16:15)
[2024-12-21] MEDS: D5W IV SCH (16:15)
[2024-12-21] MEDS: SODIUM ACETATE IV SCH (17:48)
[2024-12-21] MEDS: SODIUM CHLORIDE IV SCH (17:48)
[2024-12-21] MEDS: FAT EMULSION IV 250 ML IV ONE (17:48)
[2024-12-21] MEDS: [UNRECOGNIZED DRUG - OTHER] IV SCH (17:48)
[2024-12-21 20:52] VITALS: BP 99/61; TEMP 99.1; O2SAT 96
[2024-12-22 04:10] VITALS: BP 99/58; TEMP 98.1; O2SAT 98
[2024-12-22 07:23] LABS: BASO % 0.7 % (0.0-1.0); EOS # 0.7 10^3/uL (0.0-0.5); EOS % 13.1 % (0.0-3.0); HEMATOCRIT 28.3 % (36.0-47.0); HEMOGLOBIN 9.2 g/dl (12.0-15.5); LYMPH # 2.1 10^3/uL (1.5-5.0); LYMPH % 36.8 % (24.0-44.0); MEAN CORPUSCULAR HEMOGLOBIN 30.9 pg (27.0-33.0); MEAN CORPUSCULAR HGB CONC 32.5 g/dl (32.0-36.5); MONO # 0.4 10^3/uL (0.0-0.8); MONO % 7.5 % (2.0-8.0); NEUTROPHILS # 2.3 10^3/uL (1.5-8.5); NEUTROPHILS % 40.5 % (36.0-66.0); PLATELET COUNT, AUTOMATED 423 10^3/uL (150-450); RED BLOOD COUNT 2.98 10^6/uL (4.00-5.40); WHITE BLOOD COUNT 5.6 10^3/uL (4.0-10.0)
[2024-12-22 07:40] VITALS: BP 99/55; TEMP 98; O2SAT 96
[2024-12-22 07:52] LABS: BLOOD UREA NITROGEN 17 MG/DL (9-23); CALCIUM LEVEL 9.6 MG/DL (8.5-10.1); CARBON DIOXIDE LEVEL 27 MMOL/L (20-31); CHLORIDE LEVEL 102 MMOL/L (98-107); GLOMERULAR FILTRATION RATE > 60.0 (>60); GLUCOSE, FASTING 107 MG/DL (60-100); POTASSIUM SERUM 4.8 MMOL/L (3.5-5.1); SODIUM LEVEL 138 MMOL/L (136-145)
[2024-12-22] MEDS: MORPHINE 2 MG/ML 1ML VIAL IV PRN (10:33)
[2024-12-22] MEDS: PANTOPRAZOLE 40MG VIAL IV SCH (11:37)
[2024-12-22] MEDS: SUCRALFATE SUSP 1GM/10ML UD PO SCH (13:01)
[2024-12-22 15:52] VITALS: BP 101/58; TEMP 98; O2SAT 98
[2024-12-22] MEDS: FAT EMULSION IV 250 ML IV ONE (18:08)
[2024-12-22] MEDS: SODIUM ACETATE IV SCH (18:09)
[2024-12-22] MEDS: SODIUM CHLORIDE IV SCH (18:09)
[2024-12-22] MEDS: [UNRECOGNIZED DRUG - OTHER] IV SCH (18:09)
[2024-12-22] MEDS: MORPHINE 4 MG/ML 1ML VIAL IV PRN (19:43)
[2024-12-23 04:00] VITALS: BP 106/54; TEMP 98.2; O2SAT 97
[2024-12-23 05:34] LABS: BASO % 0.6 % (0.0-1.0); EOS # 0.8 10^3/uL (0.0-0.5); EOS % 11.3 % (0.0-3.0); HEMATOCRIT 27.9 % (36.0-47.0); HEMOGLOBIN 9.3 g/dl (12.0-15.5); LYMPH # 2.1 10^3/uL (1.5-5.0); LYMPH % 31.1 % (24.0-44.0); MEAN CORPUSCULAR HEMOGLOBIN 31.8 pg (27.0-33.0); MEAN CORPUSCULAR HGB CONC 33.3 g/dl (32.0-36.5); MEAN CORPUSCULAR VOLUME 95.5 fl (80.0-96.0); MONO # 0.6 10^3/uL (0.0-0.8); MONO % 8.8 % (2.0-8.0); NEUTROPHILS # 3.2 10^3/uL (1.5-8.5); NEUTROPHILS % 46.6 % (36.0-66.0); PLATELET COUNT, AUTOMATED 391 10^3/uL (150-450); RED BLOOD COUNT 2.92 10^6/uL (4.00-5.40); WHITE BLOOD COUNT 6.8 10^3/uL (4.0-10.0)
[2024-12-23 06:11] LABS: ALBUMIN 2.5 G/DL (3.2-5.2); ALKALINE PHOSPHATASE 452 U/L (35-104); ALT/SGPT 161 U/L (7.0-40); AST/SGOT 79 U/L (<34); BILIRUBIN,DIRECT 0.6 MG/DL (<0.4); BILIRUBIN,TOTAL 0.7 MG/DL (0.3-1.2); BLOOD UREA NITROGEN 19 MG/DL (9-23); CALCIUM LEVEL 9.4 MG/DL (8.5-10.1); CARBON DIOXIDE LEVEL 24 MMOL/L (20-31); CHLORIDE LEVEL 100 MMOL/L (98-107); CREATININE FOR GFR 0.51 MG/DL (0.55-1.30); GLOMERULAR FILTRATION RATE > 60.0 (>60); GLUCOSE, FASTING 110 MG/DL (60-100); POTASSIUM SERUM 4.7 MMOL/L (3.5-5.1); SODIUM LEVEL 136 MMOL/L (136-145); TOTAL PROTEIN 6.7 G/DL (5.7-8.2)
[2024-12-23 07:44] VITALS: BP 96/54; TEMP 98.7; O2SAT 96
[2024-12-23 12:17] VITALS: BP 103/55; TEMP 98.4; O2SAT 97
[2024-12-23 16:03] VITALS: BP 99/55; TEMP 98.7; O2SAT 96
[2024-12-23 16:26] LABS: APPEARANCE, URINE CLOUDY (CLEAR); BACTERIA, URINE AUTO 1+ (NEGATIVE); BILIRUBIN, URINE AUTO NEGATIVE (NEGATIVE); BLOOD, URINE BLOOD NEGATIVE (NEGATIVE); COLOR, URINE YELLOW (YELLOW); GLUCOSE, URINE (UA) AUTO NEGATIVE (NEGATIVE); KETONE, URINE AUTO NEGATIVE (NEGATIVE); LEUKOCYTE ESTERASE, URINE AUTO TRACE (NEGATIVE); MUCUS, URINE SMALL (NEGATIVE); NITRITE, URINE AUTO NEGATIVE (NEGATIVE); PROTEIN, URINE AUTO NEGATIVE (NEGATIVE); RBC, URINE AUTO 3 /HPF (0-3); SPECIFIC GRAVITY URINE AUTO 1.012 (1.002-1.035); SQUAMOUS EPITHELIAL CELL UR AU 10 /HPF (0-6); UROBILINOGEN, URINE AUTO 0.2 mg/dL (0.0-2.0); WBC, URINE AUTO 46 /HPF (0-3); YEAST LIKE CELL URINE AUTO MODERATE
[2024-12-23] MEDS: MORPHINE 4 MG/ML 1ML VIAL IV SCH (16:51)
[2024-12-23] MEDS: [UNRECOGNIZED DRUG - OTHER] IV SCH (18:03)
[2024-12-23] MEDS: FAT EMULSION IV 250 ML IV ONE (18:03)
[2024-12-23] MEDS: SODIUM CHLORIDE IV SCH (18:03)
[2024-12-23] MEDS: SODIUM ACETATE IV SCH (18:03)
[2024-12-23 19:33] VITALS: BP 118/61; TEMP 98.9; O2SAT 95
[2024-12-23] MEDS: IVERMECTIN 3 MG TAB (STROMECTOL) JT SCH (20:40)
[2024-12-24 04:00] VITALS: BP 115/61; TEMP 98.2; O2SAT 97
[2024-12-24 05:34] LABS: BASO % 0.7 % (0.0-1.0); EOS # 0.8 10^3/uL (0.0-0.5); HEMATOCRIT 28.9 % (36.0-47.0); HEMOGLOBIN 9.4 g/dl (12.0-15.5); LYMPH # 1.9 10^3/uL (1.5-5.0); LYMPH % 32.9 % (24.0-44.0); MEAN CORPUSCULAR HEMOGLOBIN 31.1 pg (27.0-33.0); MEAN CORPUSCULAR HGB CONC 32.5 g/dl (32.0-36.5); MEAN CORPUSCULAR VOLUME 95.7 fl (80.0-96.0); MONO # 0.5 10^3/uL (0.0-0.8); MONO % 8.1 % (2.0-8.0); NEUTROPHILS # 2.4 10^3/uL (1.5-8.5); NEUTROPHILS % 43.1 % (36.0-66.0); PLATELET COUNT, AUTOMATED 388 10^3/uL (150-450); RED BLOOD COUNT 3.02 10^6/uL (4.00-5.40); WHITE BLOOD COUNT 5.7 10^3/uL (4.0-10.0)
[2024-12-24 05:55] LABS: BLOOD UREA NITROGEN 19 MG/DL (9-23); CALCIUM LEVEL 10.3 MG/DL (8.5-10.1); CARBON DIOXIDE LEVEL 27 MMOL/L (20-31); CHLORIDE LEVEL 102 MMOL/L (98-107); CREATININE FOR GFR 0.56 MG/DL (0.55-1.30); GLOMERULAR FILTRATION RATE > 60.0 (>60); GLUCOSE, FASTING 88 MG/DL (60-100); POTASSIUM SERUM 4.5 MMOL/L (3.5-5.1); SODIUM LEVEL 137 MMOL/L (136-145)
[2024-12-24 07:46] VITALS: BP 97/55; TEMP 97.7; O2SAT 96
[2024-12-24 12:04] VITALS: BP 105/62; TEMP 98; O2SAT 96
[2024-12-24] MEDS ORDERED: fentaNYL 100 MCG/2 ML INJECTION As Ordered ONE (14:30)
[2024-12-24] MEDS ORDERED: propofoL 200 MG/20 ML VIAL As Ordered ONE (14:30)
[2024-12-24] MEDS ORDERED: LIDOCAINE 2% 100MG/5ML SDV (FOR ANES.) As Ordered ONE (14:30)
[2024-12-24] MEDS ORDERED: dexmedeTOMIDine (4MCG/ML)200MCG/50ML BTL (PRECEDEX) As Ordered ONE (14:30)
[2024-12-24 16:24] VITALS: BP 117/60; TEMP 97.3; O2SAT 96
[2024-12-24] MEDS: [UNRECOGNIZED DRUG - OTHER] IV SCH (18:06)
[2024-12-24] MEDS: SODIUM ACETATE IV SCH (18:06)
[2024-12-24] MEDS: SODIUM CHLORIDE IV SCH (18:06)
[2024-12-24] MEDS: FAT EMULSION IV 250 ML IV ONE (18:07)
[2024-12-24 21:41] VITALS: BP 96/51; TEMP 97.7; O2SAT 96
[2024-12-25 05:08] VITALS: BP 101/56; TEMP 98.1; O2SAT 99
[2024-12-25 05:25] LABS: HEMATOCRIT 27.3 % (36.0-47.0); HEMOGLOBIN 8.8 g/dl (12.0-15.5); MEAN CORPUSCULAR HEMOGLOBIN 30.9 pg (27.0-33.0); MEAN CORPUSCULAR HGB CONC 32.2 g/dl (32.0-36.5); MEAN CORPUSCULAR VOLUME 95.8 fl (80.0-96.0); PLATELET COUNT, AUTOMATED 308 10^3/uL (150-450); RED BLOOD COUNT 2.85 10^6/uL (4.00-5.40); WHITE BLOOD COUNT 5.1 10^3/uL (4.0-10.0)
[2024-12-25 05:51] LABS: ALBUMIN 2.4 G/DL (3.2-5.2); ALKALINE PHOSPHATASE 383 U/L (35-104); ALT/SGPT 169 U/L (7.0-40); AST/SGOT 74 U/L (<34); BILIRUBIN,TOTAL 0.8 MG/DL (0.3-1.2); BLOOD UREA NITROGEN 23 MG/DL (9-23); CALCIUM LEVEL 10.3 MG/DL (8.5-10.1); CARBON DIOXIDE LEVEL 25 MMOL/L (20-31); CHLORIDE LEVEL 102 MMOL/L (98-107); CREATININE FOR GFR 0.62 MG/DL (0.55-1.30); GLOMERULAR FILTRATION RATE > 60.0 (>60); GLUCOSE, FASTING 101 MG/DL (60-100); POTASSIUM SERUM 4.3 MMOL/L (3.5-5.1); SODIUM LEVEL 137 MMOL/L (136-145); TOTAL PROTEIN 6.6 G/DL (5.7-8.2)
[2024-12-25 07:33] VITALS: BP 111/56; TEMP 98; O2SAT 97
[2024-12-25 15:35] VITALS: BP 91/54; TEMP 97.9; O2SAT 97
[2024-12-25] MEDS: FAT EMULSION IV 250 ML IV ONE (17:44)
[2024-12-25] MEDS: [UNRECOGNIZED DRUG - OTHER] IV SCH (17:45)
[2024-12-25] MEDS: SODIUM CHLORIDE IV SCH (17:45)
[2024-12-25] MEDS: SODIUM ACETATE IV SCH (17:45)
[2024-12-25] MEDS ORDERED: [UNRECOGNIZED DRUG - OTHER] IV SCH (18:00)
[2024-12-25] MEDS ORDERED: SODIUM CHLORIDE IV SCH (18:00)
[2024-12-25] MEDS ORDERED: SODIUM ACETATE IV SCH (18:00)
[2024-12-25 19:34] VITALS: BP 92/54; TEMP 98.1; O2SAT 96
[2024-12-26 04:45] VITALS: BP 92/54; TEMP 97.9; O2SAT 96
[2024-12-26 05:21] LABS: HEMATOCRIT 27.1 % (36.0-47.0); HEMOGLOBIN 8.6 g/dl (12.0-15.5); MEAN CORPUSCULAR HEMOGLOBIN 30.4 pg (27.0-33.0); MEAN CORPUSCULAR HGB CONC 31.7 g/dl (32.0-36.5); MEAN CORPUSCULAR VOLUME 95.8 fl (80.0-96.0); PLATELET COUNT, AUTOMATED 317 10^3/uL (150-450); RED BLOOD COUNT 2.83 10^6/uL (4.00-5.40); WHITE BLOOD COUNT 4.9 10^3/uL (4.0-10.0)
[2024-12-26 05:43] LABS: ALBUMIN 2.5 G/DL (3.2-5.2); ALKALINE PHOSPHATASE 359 U/L (35-104); ALT/SGPT 177 U/L (7.0-40); AST/SGOT 74 U/L (<34); BILIRUBIN,TOTAL 0.9 MG/DL (0.3-1.2); BLOOD UREA NITROGEN 22 MG/DL (9-23); CALCIUM LEVEL 10.9 MG/DL (8.5-10.1); CARBON DIOXIDE LEVEL 25 MMOL/L (20-31); CHLORIDE LEVEL 101 MMOL/L (98-107); GLOMERULAR FILTRATION RATE > 60.0 (>60); GLUCOSE, FASTING 106 MG/DL (60-100); POTASSIUM SERUM 4.5 MMOL/L (3.5-5.1); SODIUM LEVEL 136 MMOL/L (136-145); TOTAL PROTEIN 6.9 G/DL (5.7-8.2)
[2024-12-26] MEDS: NS (Normal Saline) 0.9% 1,000 ML IV SCH (09:15)
[2024-12-26 12:00] VITALS: BP 92/54; TEMP 97.9; O2SAT 97
[2024-12-26] MEDS: SODIUM CHLORIDE IV SCH (17:38)
[2024-12-26] MEDS: [UNRECOGNIZED DRUG - OTHER] IV SCH (17:38)
[2024-12-26] MEDS: FAT EMULSION IV 250 ML IV ONE (17:38)
[2024-12-26] MEDS: SODIUM ACETATE IV SCH (17:38)
[2024-12-26] MEDS: INSULIN LISPRO (NovoLOG) PER UNIT SC SCH (18:00)
[2024-12-26 19:36] VITALS: BP 90/54; TEMP 97.9; O2SAT 97
[2024-12-27 04:37] VITALS: BP 96/60; TEMP 97.9; O2SAT 97
[2024-12-27 06:52] LABS: HEMATOCRIT 24.7 % (36.0-47.0); MEAN CORPUSCULAR HEMOGLOBIN 31.1 pg (27.0-33.0); MEAN CORPUSCULAR HGB CONC 32.4 g/dl (32.0-36.5); MEAN CORPUSCULAR VOLUME 96.1 fl (80.0-96.0); PLATELET COUNT, AUTOMATED 233 10^3/uL (150-450); RED BLOOD COUNT 2.57 10^6/uL (4.00-5.40)
[2024-12-27 06:58] LABS: ALBUMIN 2.3 G/DL (3.2-5.2); ALKALINE PHOSPHATASE 310 U/L (35-104); ALT/SGPT 166 U/L (7.0-40); AST/SGOT 71 U/L (<34); BILIRUBIN,TOTAL 0.8 MG/DL (0.3-1.2); BLOOD UREA NITROGEN 20 MG/DL (9-23); CALCIUM LEVEL 9.7 MG/DL (8.5-10.1); CARBON DIOXIDE LEVEL 24 MMOL/L (20-31); CHLORIDE LEVEL 104 MMOL/L (98-107); CREATININE FOR GFR 0.57 MG/DL (0.55-1.30); GLOMERULAR FILTRATION RATE > 60.0 (>60); GLUCOSE, FASTING 124 MG/DL (60-100); POTASSIUM SERUM 4.1 MMOL/L (3.5-5.1); SODIUM LEVEL 137 MMOL/L (136-145); TOTAL PROTEIN 6.3 G/DL (5.7-8.2)
[2024-12-27 08:39] LABS: IRON (FE) 61 UG/DL (50-170); PERCENT SATURATION 21.1 % (13.2-45.0); TOTAL IRON BINDING CAPACITY 289 UG/DL (250-425)
[2024-12-27 08:42] LABS: FERRITIN 179.5 NG/ML (7.3-270.7); FOLATE 9.19 NG/ML (>5.4); VITAMIN B12 LEVEL 958 PG/ML (211-911)
[2024-12-27 11:40] VITALS: BP 88/51; TEMP 97.9; O2SAT 96
[2024-12-27] MEDS: FAT EMULSION IV 250 ML IV ONE (17:42)
[2024-12-27] MEDS: [UNRECOGNIZED DRUG - OTHER] IV SCH (17:42)
[2024-12-27] MEDS: SODIUM CHLORIDE IV SCH (17:42)
[2024-12-27] MEDS: SODIUM ACETATE IV SCH (17:42)
[2024-12-27] MEDS: INSULIN LISPRO (NovoLOG) PER UNIT SC SCH (18:00)
[2024-12-27 21:00] VITALS: BP 90/54; TEMP 97.7; O2SAT 95
[2024-12-28 03:26] VITALS: BP 90/55; TEMP 97.7; O2SAT 97
[2024-12-28 06:04] LABS: HEMATOCRIT 27.3 % (36.0-47.0); HEMOGLOBIN 8.6 g/dl (12.0-15.5); MEAN CORPUSCULAR HEMOGLOBIN 30.6 pg (27.0-33.0); MEAN CORPUSCULAR HGB CONC 31.5 g/dl (32.0-36.5); MEAN CORPUSCULAR VOLUME 97.2 fl (80.0-96.0); PLATELET COUNT, AUTOMATED 240 10^3/uL (150-450); RED BLOOD COUNT 2.81 10^6/uL (4.00-5.40); WHITE BLOOD COUNT 3.5 10^3/uL (4.0-10.0)
[2024-12-28 06:25] LABS: ALBUMIN 2.6 G/DL (3.2-5.2); ALKALINE PHOSPHATASE 326 U/L (35-104); ALT/SGPT 181 U/L (7.0-40); AST/SGOT 82 U/L (<34); BLOOD UREA NITROGEN 22 MG/DL (9-23); CARBON DIOXIDE LEVEL 24 MMOL/L (20-31); CHLORIDE LEVEL 103 MMOL/L (98-107); CREATININE FOR GFR 0.58 MG/DL (0.55-1.30); GLOMERULAR FILTRATION RATE > 60.0 (>60); GLUCOSE, FASTING 107 MG/DL (60-100); POTASSIUM SERUM 4.4 MMOL/L (3.5-5.1); SODIUM LEVEL 137 MMOL/L (136-145); TOTAL PROTEIN 6.9 G/DL (5.7-8.2)
[2024-12-28 12:00] VITALS: BP 92/56; TEMP 98.1; O2SAT 100
[2024-12-28] MEDS: INSULIN LISPRO (NovoLOG) PER UNIT SC SCH (17:08)
[2024-12-28] MEDS: SODIUM ACETATE IV SCH (18:07)
[2024-12-28] MEDS: [UNRECOGNIZED DRUG - OTHER] IV SCH (18:07)
[2024-12-28] MEDS: FAT EMULSION IV 250 ML IV ONE (18:07)
[2024-12-28] MEDS: SODIUM CHLORIDE IV SCH (18:07)
[2024-12-28 20:21] VITALS: BP 93/56; TEMP 97.5; O2SAT 98
[2024-12-29 03:55] VITALS: BP 91/56; TEMP 97.5; O2SAT 97
[2024-12-29 06:31] LABS: HEMATOCRIT 28.7 % (36.0-47.0); HEMOGLOBIN 9.2 g/dl (12.0-15.5); MEAN CORPUSCULAR HEMOGLOBIN 31.1 pg (27.0-33.0); MEAN CORPUSCULAR HGB CONC 32.1 g/dl (32.0-36.5); PLATELET COUNT, AUTOMATED 214 10^3/uL (150-450); RED BLOOD COUNT 2.96 10^6/uL (4.00-5.40); WHITE BLOOD COUNT 3.8 10^3/uL (4.0-10.0)
[2024-12-29 06:55] LABS: ALBUMIN 2.7 G/DL (3.2-5.2); ALKALINE PHOSPHATASE 332 U/L (35-104); ALT/SGPT 212 U/L (7.0-40); AST/SGOT 105 U/L (<34); BILIRUBIN,TOTAL 1.4 MG/DL (0.3-1.2); BLOOD UREA NITROGEN 24 MG/DL (9-23); CALCIUM LEVEL 10.5 MG/DL (8.5-10.1); CARBON DIOXIDE LEVEL 26 MMOL/L (20-31); CHLORIDE LEVEL 101 MMOL/L (98-107); CREATININE FOR GFR 0.56 MG/DL (0.55-1.30); GLOMERULAR FILTRATION RATE > 60.0 (>60); GLUCOSE, FASTING 98 MG/DL (60-100); POTASSIUM SERUM 4.2 MMOL/L (3.5-5.1); SODIUM LEVEL 138 MMOL/L (136-145); TOTAL PROTEIN 7.2 G/DL (5.7-8.2)
[2024-12-29] MEDS: NS (Normal Saline) 0.9% 1,000 ML IV SCH (09:40)
[2024-12-29 12:00] VITALS: BP 91/55; TEMP 98.1; O2SAT 98
[2024-12-29 17:36] LABS: PTH INTACT 7.4 PG/ML (18.5-88.0)
[2024-12-29 17:40] LABS: TOTAL 25(OH) VITAMIN D 15.5 NG/ML (20.0-100.0)
[2024-12-29] MEDS: INSULIN LISPRO (NovoLOG) PER UNIT SC SCH (18:00)
[2024-12-29] MEDS: SODIUM ACETATE IV SCH (18:32)
[2024-12-29] MEDS: SODIUM CHLORIDE IV SCH (18:32)
[2024-12-29] MEDS: [UNRECOGNIZED DRUG - OTHER] IV SCH (18:32)
[2024-12-29] MEDS: FAT EMULSION IV 250 ML IV ONE (18:33)
[2024-12-29 22:08] VITALS: BP 98/60; TEMP 97.9; O2SAT 96
[2024-12-30 05:18] VITALS: BP 107/65; TEMP 97.5; O2SAT 99
[2024-12-30 06:22] LABS: HEMATOCRIT 27.5 % (36.0-47.0); HEMOGLOBIN 8.7 g/dl (12.0-15.5); MEAN CORPUSCULAR HGB CONC 31.6 g/dl (32.0-36.5); MEAN CORPUSCULAR VOLUME 97.9 fl (80.0-96.0); PLATELET COUNT, AUTOMATED 169 10^3/uL (150-450); RED BLOOD COUNT 2.81 10^6/uL (4.00-5.40); WHITE BLOOD COUNT 3.5 10^3/uL (4.0-10.0)
[2024-12-30 06:44] LABS: ALBUMIN 2.4 G/DL (3.2-5.2); ALKALINE PHOSPHATASE 296 U/L (35-104); ALT/SGPT 214 U/L (7.0-40); AST/SGOT 101 U/L (<34); BILIRUBIN,TOTAL 1.5 MG/DL (0.3-1.2); BLOOD UREA NITROGEN 21 MG/DL (9-23); CALCIUM LEVEL 9.6 MG/DL (8.5-10.1); CARBON DIOXIDE LEVEL 25 MMOL/L (20-31); CHLORIDE LEVEL 106 MMOL/L (98-107); CREATININE FOR GFR 0.49 MG/DL (0.55-1.30); GLOMERULAR FILTRATION RATE > 60.0 (>60); GLUCOSE, FASTING 100 MG/DL (60-100); SODIUM LEVEL 140 MMOL/L (136-145); TOTAL PROTEIN 6.6 G/DL (5.7-8.2)
[2024-12-30 12:00] VITALS: BP 92/55; TEMP 98.1; O2SAT 98
[2024-12-30] MEDS: MORPHINE 10MG/0.5ML ORAL CONCENTRATE SOLUTION U/D SL PRN (15:03)
[2024-12-30] MEDS: INSULIN LISPRO (NovoLOG) PER UNIT SC SCH (17:43)
[2024-12-30] MEDS: MORPHINE 2 MG/ML 1ML VIAL IV SCH (17:55)
[2024-12-30] MEDS: SODIUM ACETATE IV SCH (18:10)
[2024-12-30] MEDS: FAT EMULSION IV 250 ML IV ONE (18:10)
[2024-12-30] MEDS: SODIUM CHLORIDE IV SCH (18:10)
[2024-12-30] MEDS: [UNRECOGNIZED DRUG - OTHER] IV SCH (18:10)
[2024-12-30 20:20] VITALS: BP 103/65; TEMP 97.7; O2SAT 99
[2024-12-31 04:40] VITALS: BP 101/63; TEMP 97.5; O2SAT 98
[2024-12-31 06:52] LABS: HEMATOCRIT 26.1 % (36.0-47.0); HEMOGLOBIN 8.5 g/dl (12.0-15.5); MEAN CORPUSCULAR HEMOGLOBIN 31.3 pg (27.0-33.0); MEAN CORPUSCULAR HGB CONC 32.6 g/dl (32.0-36.5); PLATELET COUNT, AUTOMATED 152 10^3/uL (150-450); RED BLOOD COUNT 2.72 10^6/uL (4.00-5.40); WHITE BLOOD COUNT 3.2 10^3/uL (4.0-10.0)
[2024-12-31 07:51] LABS: ALBUMIN 2.5 G/DL (3.2-5.2); ALKALINE PHOSPHATASE 286 U/L (35-104); ALT/SGPT 211 U/L (7.0-40); AST/SGOT 104 U/L (<34); BILIRUBIN,TOTAL 1.6 MG/DL (0.3-1.2); BLOOD UREA NITROGEN 18 MG/DL (9-23); CALCIUM LEVEL 9.4 MG/DL (8.5-10.1); CARBON DIOXIDE LEVEL 26 MMOL/L (20-31); CHLORIDE LEVEL 104 MMOL/L (98-107); CREATININE FOR GFR 0.41 MG/DL (0.55-1.30); GLOMERULAR FILTRATION RATE > 60.0 (>60); GLUCOSE, FASTING 102 MG/DL (60-100); POTASSIUM SERUM 3.8 MMOL/L (3.5-5.1); SODIUM LEVEL 139 MMOL/L (136-145); TOTAL PROTEIN 6.5 G/DL (5.7-8.2)
[2024-12-31] MEDS ORDERED: MORPHINE 2 MG/ML 1ML VIAL IV PRN (11:15)
[2024-12-31] MEDS: ALTEPLASE 2MG/2ML VIAL IV PRN ×2 (11:48→14:02)
[2024-12-31 12:00] VITALS: BP 101/63; TEMP 97.9; O2SAT 98
[2024-12-31] MEDS: MORPHINE 10MG/0.5ML ORAL CONCENTRATE SOLUTION U/D SL PRN (14:56)
[2024-12-31] MEDS: MORPHINE 2 MG/ML 1ML VIAL IV SCH (15:07)
[2024-12-31] MEDS: ISOVUE-300 61% 100ML VIAL IV ONE (15:35)
[2024-12-31] MEDS: NS (Normal Saline) 0.9% 1,000 ML IV SCH (15:45)
[2024-12-31] MEDS: ceFAZolin SOD 2 GM in IV 1 EA IV ONE (15:57)
[2024-12-31] MEDS: MIDAZOLAM INJ 2MG/2ML VIAL IV ONE ×2 (16:23→16:56)
[2024-12-31] MEDS: fentaNYL 100 MCG/2 ML INJECTION IV ONE ×2 (16:24→16:57)
[2024-12-31 17:30] VITALS: BP 102/64; TEMP 97.7; O2SAT 100
[2024-12-31] MEDS: INSULIN LISPRO (NovoLOG) PER UNIT SC SCH (18:00)
[2024-12-31] MEDS: SODIUM CHLORIDE IV SCH (18:23)
[2024-12-31] MEDS: [UNRECOGNIZED DRUG - OTHER] IV SCH (18:23)
[2024-12-31] MEDS: SODIUM ACETATE IV SCH (18:23)
[2024-12-31] MEDS: FAT EMULSION IV 250 ML IV ONE (18:23)
[2024-12-31 20:05] VITALS: BP 117/66; TEMP 98.4; O2SAT 99
[2025-01-01 03:32] VITALS: BP 97/58; TEMP 97.7; O2SAT 98
[2025-01-01 10:27] LABS: BASO % 0.8 % (0.0-1.0); EOS # 0.4 10^3/uL (0.0-0.5); EOS % 14.8 % (0.0-3.0); HEMATOCRIT 27.3 % (36.0-47.0); HEMOGLOBIN 8.5 g/dl (12.0-15.5); LYMPH % 38.4 % (24.0-44.0); MEAN CORPUSCULAR HEMOGLOBIN 29.7 pg (27.0-33.0); MEAN CORPUSCULAR HGB CONC 31.1 g/dl (32.0-36.5); MEAN CORPUSCULAR VOLUME 95.5 fl (80.0-96.0); MONO # 0.3 10^3/uL (0.0-0.8); MONO % 10.6 % (2.0-8.0); PLATELET COUNT, AUTOMATED 125 10^3/uL (150-450); RED BLOOD COUNT 2.86 10^6/uL (4.00-5.40); WHITE BLOOD COUNT 2.6 10^3/uL (4.0-10.0)
[2025-01-01 10:33] LABS: ALBUMIN 2.4 G/DL (3.2-5.2); ALKALINE PHOSPHATASE 286 U/L (35-104); ALT/SGPT 249 U/L (7.0-40); AST/SGOT 137 U/L (<34); BILIRUBIN,TOTAL 1.6 MG/DL (0.3-1.2); BLOOD UREA NITROGEN 14 MG/DL (9-23); CALCIUM LEVEL 8.8 MG/DL (8.5-10.1); CARBON DIOXIDE LEVEL 25 MMOL/L (20-31); CHLORIDE LEVEL 109 MMOL/L (98-107); CREATININE FOR GFR 0.45 MG/DL (0.55-1.30); GLOMERULAR FILTRATION RATE > 60.0 (>60); GLUCOSE, FASTING 110 MG/DL (60-100); SODIUM LEVEL 142 MMOL/L (136-145); TOTAL PROTEIN 6.6 G/DL (5.7-8.2)
[2025-01-01 11:33] LABS: NEUTROPHILS # 0.9 10^3/uL (1.5-8.5)
[2025-01-01 12:00] VITALS: BP 99/61; TEMP 97.9; O2SAT 98
[2025-01-01] MEDS: INSULIN LISPRO (NovoLOG) PER UNIT SC SCH (18:00)
[2025-01-01] MEDS: FAT EMULSION IV 250 ML IV ONE (18:12)
[2025-01-01] MEDS: SODIUM CHLORIDE IV SCH (18:12)
[2025-01-01] MEDS: SODIUM ACETATE IV SCH (18:12)
[2025-01-01] MEDS: [UNRECOGNIZED DRUG - OTHER] IV SCH (18:12)
[2025-01-01] MEDS: MORPHINE 10MG/0.5ML ORAL CONCENTRATE SOLUTION U/D SL PRN (20:39)
[2025-01-01 21:00] VITALS: BP 110/73; TEMP 98.1; O2SAT 98
[2025-01-02 03:40] VITALS: BP 97/60; TEMP 97.7; O2SAT 99
[2025-01-02] MEDS ORDERED: NYSTATIN CREAM 15GM TOP PRN (09:25)
[2025-01-02] MEDS: MORPHINE 10MG/0.5ML ORAL CONCENTRATE SOLUTION U/D SL PRN (09:32)
[2025-01-02 12:00] VITALS: BP 98/64; TEMP 98.6; O2SAT 98
[2025-01-02] MEDS: INSULIN LISPRO (NovoLOG) PER UNIT SC SCH (18:00)
[2025-01-02] MEDS: FAT EMULSION IV 250 ML IV ONE (18:25)
[2025-01-02 18:26] VITALS: TEMP 99.1
[2025-01-02] MEDS: SODIUM ACETATE IV SCH (18:26)
[2025-01-02] MEDS: SODIUM CHLORIDE IV SCH (18:26)
[2025-01-02] MEDS: [UNRECOGNIZED DRUG - OTHER] IV SCH (18:26)
[2025-01-02 20:00] VITALS: BP 98/65; TEMP 99; O2SAT 99
[2025-01-02] MEDS ORDERED: levETIRAcetam INJection 500 MG in IV 1 EA IV SCH (22:50)
[2025-01-02] MEDS: LEVETIRACETAM IV SCH (23:25)
[2025-01-02] MEDS: NS IV SCH (23:25)
[2025-01-02] MEDS: MATE ADAPTER IV SCH (23:25)
[2025-01-03 03:50] VITALS: BP 93/59; TEMP 96.8; O2SAT 99
[2025-01-03 10:57] LABS: C REACTIVE PROTEIN QUANTITATIV < 0.50 MG/DL (<1.0)
[2025-01-03 12:00] VITALS: BP 95/62; TEMP 98.6; O2SAT 99
[2025-01-03] MEDS: NS 0.45% 1,000 ML IV SCH (17:05)
[2025-01-03] MEDS: [UNRECOGNIZED DRUG - OTHER] IV SCH (17:48)
[2025-01-03] MEDS: SODIUM ACETATE IV SCH (17:48)
[2025-01-03] MEDS: SODIUM CHLORIDE IV SCH (17:48)
[2025-01-03] MEDS: FAT EMULSION IV 250 ML IV ONE (17:48)
[2025-01-03] MEDS: INSULIN LISPRO (NovoLOG) PER UNIT SC SCH (17:49)
[2025-01-03 20:31] VITALS: BP 94/57; TEMP 98.2; O2SAT 100
[2025-01-04 04:19] VITALS: BP 90/57; TEMP 97.1; O2SAT 99
[2025-01-04 12:00] VITALS: BP 110/54; TEMP 97.6; O2SAT 99
[2025-01-04] MEDS: INSULIN LISPRO (NovoLOG) PER UNIT SC SCH (17:34)
[2025-01-04] MEDS: FAT EMULSION IV 250 ML IV ONE (17:45)
[2025-01-04] MEDS: SODIUM CHLORIDE IV SCH (17:46)
[2025-01-04] MEDS: SODIUM ACETATE IV SCH (17:46)
[2025-01-04] MEDS: [UNRECOGNIZED DRUG - OTHER] IV SCH (17:46)
[2025-01-04 19:30] VITALS: BP 94/59; TEMP 98.7; O2SAT 100
[2025-01-05 05:07] VITALS: BP 94/63; TEMP 97.3; O2SAT 98
[2025-01-05 06:34] LABS: BASO % 0.8 % (0.0-1.0); EOS # 0.6 10^3/uL (0.0-0.5); EOS % 16.1 % (0.0-3.0); HEMATOCRIT 27.7 % (36.0-47.0); HEMOGLOBIN 8.9 g/dl (12.0-15.5); LYMPH # 1.4 10^3/uL (1.5-5.0); LYMPH % 37.8 % (24.0-44.0); MEAN CORPUSCULAR HEMOGLOBIN 30.9 pg (27.0-33.0); MEAN CORPUSCULAR HGB CONC 32.1 g/dl (32.0-36.5); MEAN CORPUSCULAR VOLUME 96.2 fl (80.0-96.0); MONO # 0.4 10^3/uL (0.0-0.8); MONO % 10.6 % (2.0-8.0); NEUTROPHILS # 1.3 10^3/uL (1.5-8.5); NEUTROPHILS % 34.4 % (36.0-66.0); PLATELET COUNT, AUTOMATED 128 10^3/uL (150-450); RED BLOOD COUNT 2.88 10^6/uL (4.00-5.40); WHITE BLOOD COUNT 3.8 10^3/uL (4.0-10.0)
[2025-01-05 07:05] LABS: ALBUMIN 2.7 G/DL (3.2-5.2); ALKALINE PHOSPHATASE 277 U/L (35-104); ALT/SGPT 379 U/L (7.0-40); AST/SGOT 169 U/L (<34); BILIRUBIN,TOTAL 1.8 MG/DL (0.3-1.2); BLOOD UREA NITROGEN 18 MG/DL (9-23); CARBON DIOXIDE LEVEL 24 MMOL/L (20-31); CHLORIDE LEVEL 106 MMOL/L (98-107); CREATININE FOR GFR 0.42 MG/DL (0.55-1.30); GLOMERULAR FILTRATION RATE > 60.0 (>60); GLUCOSE, FASTING 95 MG/DL (60-100); POTASSIUM SERUM 3.8 MMOL/L (3.5-5.1); SODIUM LEVEL 139 MMOL/L (136-145); TOTAL PROTEIN 6.9 G/DL (5.7-8.2)
[2025-01-05 12:00] VITALS: BP 95/60; TEMP 98.7; O2SAT 99
[2025-01-05] MEDS: SODIUM CHLORIDE IV SCH (17:26)
[2025-01-05] MEDS: SODIUM ACETATE IV SCH (17:26)
[2025-01-05] MEDS: [UNRECOGNIZED DRUG - OTHER] IV SCH (17:26)
[2025-01-05] MEDS: INSULIN LISPRO (NovoLOG) PER UNIT SC SCH (17:31)
[2025-01-05 21:12] VITALS: BP 113/75; TEMP 97.9; O2SAT 99
[2025-01-06 04:25] VITALS: BP 95/59; TEMP 97.5; O2SAT 99
[2025-01-06 09:25] LABS: BASO % 0.6 % (0.0-1.0); EOS # 0.4 10^3/uL (0.0-0.5); EOS % 12.7 % (0.0-3.0); HEMOGLOBIN 9.6 g/dl (12.0-15.5); LYMPH # 1.1 10^3/uL (1.5-5.0); MEAN CORPUSCULAR HEMOGLOBIN 31.6 pg (27.0-33.0); MEAN CORPUSCULAR HGB CONC 33.1 g/dl (32.0-36.5); MEAN CORPUSCULAR VOLUME 95.4 fl (80.0-96.0); MONO # 0.4 10^3/uL (0.0-0.8); MONO % 13.4 % (2.0-8.0); NEUTROPHILS # 1.2 10^3/uL (1.5-8.5); PLATELET COUNT, AUTOMATED 117 10^3/uL (150-450); RED BLOOD COUNT 3.04 10^6/uL (4.00-5.40); WHITE BLOOD COUNT 3.1 10^3/uL (4.0-10.0)
[2025-01-06 09:56] LABS: ALBUMIN 2.8 G/DL (3.2-5.2); ALKALINE PHOSPHATASE 292 U/L (35-104); ALT/SGPT 431 U/L (7.0-40); AST/SGOT 189 U/L (<34); BILIRUBIN,TOTAL 2.2 MG/DL (0.3-1.2); BLOOD UREA NITROGEN 21 MG/DL (9-23); CALCIUM LEVEL 9.4 MG/DL (8.5-10.1); CARBON DIOXIDE LEVEL 24 MMOL/L (20-31); CHLORIDE LEVEL 104 MMOL/L (98-107); CREATININE FOR GFR 0.52 MG/DL (0.55-1.30); GLOMERULAR FILTRATION RATE > 60.0 (>60); GLUCOSE, FASTING 111 MG/DL (60-100); POTASSIUM SERUM 4.2 MMOL/L (3.5-5.1); SODIUM LEVEL 138 MMOL/L (136-145); TOTAL PROTEIN 7.2 G/DL (5.7-8.2)
[2025-01-06 12:00] VITALS: BP 90/58; TEMP 98.9; O2SAT 98
[2025-01-06] MEDS: INSULIN LISPRO (NovoLOG) PER UNIT SC SCH (18:00)
[2025-01-06] MEDS: SODIUM CHLORIDE IV SCH (18:23)
[2025-01-06] MEDS: SODIUM ACETATE IV SCH (18:23)
[2025-01-06] MEDS: [UNRECOGNIZED DRUG - OTHER] IV SCH (18:23)
[2025-01-06 20:20] VITALS: BP 90/57; TEMP 98.3; O2SAT 100
[2025-01-07 03:40] VITALS: BP 93/56; TEMP 96.3; O2SAT 100
[2025-01-07 05:43] LABS: BASO % 0.6 % (0.0-1.0); EOS # 0.4 10^3/uL (0.0-0.5); EOS % 12.6 % (0.0-3.0); HEMATOCRIT 29.4 % (36.0-47.0); HEMOGLOBIN 9.4 g/dl (12.0-15.5); LYMPH # 1.5 10^3/uL (1.5-5.0); LYMPH % 43.3 % (24.0-44.0); MEAN CORPUSCULAR HEMOGLOBIN 30.8 pg (27.0-33.0); MEAN CORPUSCULAR VOLUME 96.4 fl (80.0-96.0); MONO # 0.5 10^3/uL (0.0-0.8); MONO % 13.2 % (2.0-8.0); NEUTROPHILS # 1.1 10^3/uL (1.5-8.5); PLATELET COUNT, AUTOMATED 137 10^3/uL (150-450); RED BLOOD COUNT 3.05 10^6/uL (4.00-5.40); WHITE BLOOD COUNT 3.5 10^3/uL (4.0-10.0)
[2025-01-07 05:53] LABS: ALBUMIN 2.8 G/DL (3.2-5.2); ALKALINE PHOSPHATASE 278 U/L (35-104); ALT/SGPT 394 U/L (7.0-40); AST/SGOT 157 U/L (<34); BILIRUBIN,TOTAL 2.2 MG/DL (0.3-1.2); BLOOD UREA NITROGEN 22 MG/DL (9-23); CALCIUM LEVEL 9.2 MG/DL (8.5-10.1); CARBON DIOXIDE LEVEL 27 MMOL/L (20-31); CHLORIDE LEVEL 103 MMOL/L (98-107); CREATININE FOR GFR 0.51 MG/DL (0.55-1.30); GLOMERULAR FILTRATION RATE > 60.0 (>60); GLUCOSE, FASTING 86 MG/DL (60-100); POTASSIUM SERUM 4.2 MMOL/L (3.5-5.1); SODIUM LEVEL 138 MMOL/L (136-145)
[2025-01-07 12:00] VITALS: BP 108/80; TEMP 97.5; O2SAT 100
[2025-01-07] MEDS: INSULIN LISPRO (NovoLOG) PER UNIT SC SCH (17:13)
[2025-01-07] MEDS: [UNRECOGNIZED DRUG - OTHER] IV SCH (18:05)
[2025-01-07] MEDS: SODIUM ACETATE IV SCH (18:05)
[2025-01-07] MEDS: SODIUM CHLORIDE IV SCH (18:05)
[2025-01-07] MEDS ORDERED: DIPH50IN14 IV (19:55)
[2025-01-07] MEDS ORDERED: [UNRECOGNIZED DRUG - CODE] IV (19:55)
[2025-01-07] MEDS ORDERED: LOVE0.4I2 SC (19:59)
[2025-01-07 21:37] VITALS: BP 84/62; TEMP 97.9; O2SAT 98
[2025-01-08 00:06] VITALS: BP 98/59; TEMP 97.9; O2SAT 99
[2025-01-08 04:59] VITALS: BP 91/56; TEMP 96.8; O2SAT 100
[2025-01-08 05:03] LABS: BASO % 0.6 % (0.0-1.0); EOS # 0.4 10^3/uL (0.0-0.5); EOS % 12.6 % (0.0-3.0); HEMATOCRIT 28.7 % (36.0-47.0); HEMOGLOBIN 9.2 g/dl (12.0-15.5); LYMPH # 1.3 10^3/uL (1.5-5.0); LYMPH % 40.1 % (24.0-44.0); MEAN CORPUSCULAR HEMOGLOBIN 31.1 pg (27.0-33.0); MEAN CORPUSCULAR HGB CONC 32.1 g/dl (32.0-36.5); MONO # 0.5 10^3/uL (0.0-0.8); MONO % 13.5 % (2.0-8.0); NEUTROPHILS # 1.1 10^3/uL (1.5-8.5); NEUTROPHILS % 32.9 % (36.0-66.0); PLATELET COUNT, AUTOMATED 136 10^3/uL (150-450); RED BLOOD COUNT 2.96 10^6/uL (4.00-5.40); WHITE BLOOD COUNT 3.3 10^3/uL (4.0-10.0)
[2025-01-08 05:27] LABS: ALBUMIN 2.8 G/DL (3.2-5.2); ALKALINE PHOSPHATASE 268 U/L (35-104); ALT/SGPT 377 U/L (7.0-40); AST/SGOT 146 U/L (<34); BILIRUBIN,TOTAL 2.3 MG/DL (0.3-1.2); BLOOD UREA NITROGEN 20 MG/DL (9-23); CALCIUM LEVEL 9.2 MG/DL (8.5-10.1); CARBON DIOXIDE LEVEL 25 MMOL/L (20-31); CHLORIDE LEVEL 105 MMOL/L (98-107); CREATININE FOR GFR 0.51 MG/DL (0.55-1.30); GLOMERULAR FILTRATION RATE > 60.0 (>60); GLUCOSE, FASTING 105 MG/DL (60-100); SODIUM LEVEL 139 MMOL/L (136-145)
[2025-01-08 10:00] VITALS: BP 90/56; TEMP 98.3; O2SAT 99
[2025-01-08 12:00] VITALS: BP 91/56; TEMP 98.4; O2SAT 97
[2025-01-08] MEDS: INSULIN LISPRO (NovoLOG) PER UNIT SC SCH (18:00)
[2025-01-08] MEDS: [UNRECOGNIZED DRUG - OTHER] IV SCH (18:10)
[2025-01-08] MEDS: SODIUM CHLORIDE IV SCH (18:10)
[2025-01-08] MEDS: SODIUM ACETATE IV SCH (18:10)
[2025-01-08] MEDS ORDERED: PANT40IN4 IV (18:39)
[2025-01-08 20:32] VITALS: BP 90/56; TEMP 98.1; O2SAT 99
[2025-01-09 04:45] VITALS: BP 84/53; TEMP 97.7; O2SAT 100
[2025-01-09 05:08] LABS: BASO % 0.6 % (0.0-1.0); EOS # 0.4 10^3/uL (0.0-0.5); EOS % 11.1 % (0.0-3.0); HEMATOCRIT 27.7 % (36.0-47.0); HEMOGLOBIN 8.8 g/dl (12.0-15.5); LYMPH # 1.5 10^3/uL (1.5-5.0); MEAN CORPUSCULAR HGB CONC 31.8 g/dl (32.0-36.5); MEAN CORPUSCULAR VOLUME 97.5 fl (80.0-96.0); MONO # 0.5 10^3/uL (0.0-0.8); MONO % 13.1 % (2.0-8.0); NEUTROPHILS # 1.1 10^3/uL (1.5-8.5); NEUTROPHILS % 30.9 % (36.0-66.0); PLATELET COUNT, AUTOMATED 126 10^3/uL (150-450); RED BLOOD COUNT 2.84 10^6/uL (4.00-5.40); WHITE BLOOD COUNT 3.4 10^3/uL (4.0-10.0)
[2025-01-09 05:37] LABS: ALBUMIN 2.7 G/DL (3.2-5.2); ALKALINE PHOSPHATASE 258 U/L (35-104); ALT/SGPT 369 U/L (7.0-40); AST/SGOT 154 U/L (<34); BILIRUBIN,TOTAL 2.2 MG/DL (0.3-1.2); BLOOD UREA NITROGEN 21 MG/DL (9-23); CALCIUM LEVEL 8.9 MG/DL (8.5-10.1); CARBON DIOXIDE LEVEL 24 MMOL/L (20-31); CHLORIDE LEVEL 107 MMOL/L (98-107); CREATININE FOR GFR 0.49 MG/DL (0.55-1.30); GLOMERULAR FILTRATION RATE > 60.0 (>60); GLUCOSE, FASTING 96 MG/DL (60-100); POTASSIUM SERUM 4.1 MMOL/L (3.5-5.1); SODIUM LEVEL 141 MMOL/L (136-145); TOTAL PROTEIN 6.7 G/DL (5.7-8.2)
[2025-01-09] MEDS: LR 500 ML IV ONE (05:45)
[2025-01-09 11:50] VITALS: BP 93/62; TEMP 97.9; O2SAT 100
== END 2025-01-09 12:35 | disposition home health service (06) | DRG 698 ==
LOC: EDBD 19:01 → M ED 19:01 → M ED INP 23:57 → EEVIPCON 23:57 → M MSPAV 11-13 01:29 → M ICU 11-13 03:54 → M PCU 11-27 17:39 → M MSPAV 12-25 15:30
PROVIDERS: ADMIT Student in an Organized Health Care Education/Training Program; ATTEND Internal Medicine
PROC: 0BH17EZ Insertion of Endotracheal Airway into Trachea, Via Natural or Artificial Opening (ICD-10-PCS; 2024-11-14)
PROC: 5A1955Z Respiratory Ventilation, Greater than 96 Consecutive Hours (ICD-10-PCS; 2024-11-14)
PROC: 30233R1 Transfusion of Nonautologous Platelets into Peripheral Vein, Percutaneous Approach (ICD-10-PCS; 2024-11-15)
PROC: 30233N1 Transfusion of Nonautologous Red Blood Cells into Peripheral Vein, Percutaneous Approach (ICD-10-PCS; 2024-11-15)
PROC: 30233K1 Transfusion of Nonautologous Frozen Plasma into Peripheral Vein, Percutaneous Approach (ICD-10-PCS; 2024-11-15)
PROC: 0F9430Z Drainage of Gallbladder with Drainage Device, Percutaneous Approach (ICD-10-PCS; principal; 2024-11-15 11:45)
PROC: 30233J1 Transfusion of Nonautologous Serum Albumin into Peripheral Vein, Percutaneous Approach (ICD-10-PCS; 2024-11-20)
PROC: B246ZZZ Ultrasonography of Right and Left Heart (ICD-10-PCS; 2024-11-22)
PROC: 0JH63XZ Insertion of Tunneled Vascular Access Device into Chest Subcutaneous Tissue and Fascia, Percutaneous Approach (ICD-10-PCS; 2024-11-26)
PROC: 0W993ZZ Drainage of Right Pleural Cavity, Percutaneous Approach (ICD-10-PCS; 2024-11-26)
PROC: 0F24X0Z Change Drainage Device in Gallbladder, External Approach (ICD-10-PCS; 2024-12-24)
PROC: 05PYX3Z Removal of Infusion Device from Upper Vein, External Approach (ICD-10-PCS; 2024-12-31)
PROC: 02HV33Z Insertion of Infusion Device into Superior Vena Cava, Percutaneous Approach (ICD-10-PCS; 2024-12-31)
DX: T83.511A Infection and inflammatory reaction due to indwelling urethral catheter, initial encounter (principal); A41.51 Sepsis due to Escherichia coli [E. coli]; R65.21 Severe sepsis with septic shock; D65 Disseminated intravascular coagulation [defibrination syndrome]; J96.00 Acute respiratory failure, unspecified whether with hypoxia or hypercapnia; E43 Unspecified severe protein-calorie malnutrition; J18.9 Pneumonia, unspecified organism; Q79.60 Ehlers-Danlos syndrome, unspecified; D80.3 Selective deficiency of immunoglobulin G [IgG] subclasses; Z68.1 Body mass index [BMI] 19.9 or less, adult; E87.20 Acidosis, unspecified; E87.1 Hypo-osmolality and hyponatremia; N17.9 Acute kidney failure, unspecified; K81.0 Acute cholecystitis; E87.4 Mixed disorder of acid-base balance; G93.40 Encephalopathy, unspecified; D80.1 Nonfamilial hypogammaglobulinemia; E87.0 Hyperosmolality and hypernatremia; D62 Acute posthemorrhagic anemia; J90 Pleural effusion, not elsewhere classified; I82.C11 Acute embolism and thrombosis of right internal jugular vein; B00.2 Herpesviral gingivostomatitis and pharyngotonsillitis; J98.11 Atelectasis; N39.0 Urinary tract infection, site not specified; K31.84 Gastroparesis; J45.909 Unspecified asthma, uncomplicated; K21.9 Gastro-esophageal reflux disease without esophagitis; D50.9 Iron deficiency anemia, unspecified; G25.0 Essential tremor; D70.9 Neutropenia, unspecified; R74.01 Elevation of levels of liver transaminase levels; F41.9 Anxiety disorder, unspecified; G47.00 Insomnia, unspecified; G90.A Postural orthostatic tachycardia syndrome [POTS]; B96.20 Unspecified Escherichia coli [E. coli] as the cause of diseases classified elsewhere; E83.42 Hypomagnesemia; E83.39 Other disorders of phosphorus metabolism; Z93.1 Gastrostomy status; Z79.899 Other long term (current) drug therapy; Z88.1 Allergy status to other antibiotic agents; Z88.0 Allergy status to penicillin; Z88.8 Allergy status to other drugs, medicaments and biological substances; Z79.890 Hormone replacement therapy; G40.409 Other generalized epilepsy and epileptic syndromes, not intractable, without status epilepticus; G62.9 Polyneuropathy, unspecified; G89.29 Other chronic pain; E83.51 Hypocalcemia; E87.6 Hypokalemia; E87.70 Fluid overload, unspecified; R33.9 Retention of urine, unspecified; R04.0 Epistaxis; N31.9 Neuromuscular dysfunction of bladder, unspecified; K59.09 Other constipation; E83.52 Hypercalcemia

== ENCOUNTER 2025-01-10 20:17 | Emergency (ER) | payer MEDICARE, BC ==
[~2025-01-10] VITALS: Ht 170.2 cm; Wt 45.5 kg
[~2025-01-10 20:17] MED LIST changes: +DIPH50IN14 IV; +LOVE0.4I2 SC; +PANT40IN4 IV; +[UNRECOGNIZED DRUG - CODE] IV
[2025-01-10 21:46] LABS: HEMATOCRIT 28.9 % (36.0-47.0); HEMOGLOBIN 9.6 g/dl (12.0-15.5); MEAN CORPUSCULAR HEMOGLOBIN 31.5 pg (27.0-33.0); MEAN CORPUSCULAR HGB CONC 33.2 g/dl (32.0-36.5); MEAN CORPUSCULAR VOLUME 94.8 fl (80.0-96.0); PLATELET COUNT, AUTOMATED 141 10^3/uL (150-450); RED BLOOD COUNT 3.05 10^6/uL (4.00-5.40)
[2025-01-10 21:59] LABS: PARTIAL THROMBOPLASTIN TIME 33.1 SECONDS (24.8-34.2); PROTHROMBIN TIME 13.5 SECONDS (12.5-14.5)
[2025-01-10 22:30] VITALS: BP 103/70
[2025-01-10 22:45] VITALS: TEMP 97.9; O2SAT 100
== END 2025-01-10 23:07 | disposition home or self-care (01) ==
LOC: M ED 20:17
DX: T82.838A Hemorrhage due to vascular prosthetic devices, implants and grafts, initial encounter (principal); F32.A Depression, unspecified; K21.9 Gastro-esophageal reflux disease without esophagitis; J45.909 Unspecified asthma, uncomplicated; G40.909 Epilepsy, unspecified, not intractable, without status epilepticus; F41.9 Anxiety disorder, unspecified; K31.84 Gastroparesis; Q79.60 Ehlers-Danlos syndrome, unspecified; G90.A Postural orthostatic tachycardia syndrome [POTS]; Z86.718 Personal history of other venous thrombosis and embolism; Z93.4 Other artificial openings of gastrointestinal tract status; Z93.1 Gastrostomy status; Z79.899 Other long term (current) drug therapy; Z88.8 Allergy status to other drugs, medicaments and biological substances; Z88.1 Allergy status to other antibiotic agents

== ENCOUNTER 2025-01-11 19:08 | Emergency (ER) | payer MEDICARE, BC ==
[~2025-01-11] VITALS: Ht 170.2 cm; Wt 45.6 kg
[2025-01-11] MEDS ORDERED: TRANEXAMIC ACID 650MG TABLET (LYSTEDA) PO ONE (20:00)
[2025-01-11] MEDS: TRANEXAMIC ACID INJection 1,000 MG in NS 100 ML IV ONE (20:56)
[2025-01-11 23:30] VITALS: O2SAT 99
[2025-01-11 23:34] VITALS: TEMP 99
[2025-01-11 23:40] VITALS: BP 97/62
== END 2025-01-12 00:43 | disposition home or self-care (01) ==
LOC: M ED 19:08
DX: T82.838A Hemorrhage due to vascular prosthetic devices, implants and grafts, initial encounter (principal); J45.909 Unspecified asthma, uncomplicated; K21.9 Gastro-esophageal reflux disease without esophagitis; F32.A Depression, unspecified; G40.909 Epilepsy, unspecified, not intractable, without status epilepticus; F41.9 Anxiety disorder, unspecified; K31.84 Gastroparesis; Q79.60 Ehlers-Danlos syndrome, unspecified; G90.A Postural orthostatic tachycardia syndrome [POTS]; Z86.718 Personal history of other venous thrombosis and embolism; Z93.4 Other artificial openings of gastrointestinal tract status; Z93.1 Gastrostomy status; Z79.899 Other long term (current) drug therapy; Z88.8 Allergy status to other drugs, medicaments and biological substances; Z88.1 Allergy status to other antibiotic agents

== ENCOUNTER 2025-01-13 12:01 | Outpatient (CLI) | payer MEDICARE, BC ==
[~2025-01-13] VITALS: Ht 170.2 cm; Wt 45.6 kg
== END 2025-01-13 12:50 ==
LOC: M INFU 12:01
PROVIDERS: ATTEND Nurse Practitioner Adult Health
DX: Z48.01 Encounter for change or removal of surgical wound dressing (principal)

== ENCOUNTER → 2025-01-15 | Outpatient (CLI) | payer MEDICARE, BC ==
[2025-01-15 13:00] LABS: BASO % 0.4 % (0.0-1.0); EOS # 0.3 10^3/uL (0.0-0.5); EOS % 4.6 % (0.0-3.0); HEMATOCRIT 33.5 % (36.0-47.0); HEMOGLOBIN 10.7 g/dl (12.0-15.5); LYMPH # 1.4 10^3/uL (1.5-5.0); MEAN CORPUSCULAR HEMOGLOBIN 31.4 pg (27.0-33.0); MEAN CORPUSCULAR HGB CONC 31.9 g/dl (32.0-36.5); MEAN CORPUSCULAR VOLUME 98.2 fl (80.0-96.0); MONO # 0.3 10^3/uL (0.0-0.8); NEUTROPHILS # 3.5 10^3/uL (1.5-8.5); NEUTROPHILS % 63.8 % (36.0-66.0); PLATELET COUNT, AUTOMATED 225 10^3/uL (150-450); RED BLOOD COUNT 3.41 10^6/uL (4.00-5.40); WHITE BLOOD COUNT 5.5 10^3/uL (4.0-10.0)
[2025-01-15 13:32] LABS: ALBUMIN 3.4 G/DL (3.2-5.2); ALKALINE PHOSPHATASE 336 U/L (35-104); ALT/SGPT 339 U/L (7.0-40); AST/SGOT 78 U/L (<34); BILIRUBIN,TOTAL 1.1 MG/DL (0.3-1.2); BLOOD UREA NITROGEN 23 MG/DL (9-23); CALCIUM LEVEL 9.1 MG/DL (8.5-10.1); CARBON DIOXIDE LEVEL 25 MMOL/L (20-31); CHLORIDE LEVEL 106 MMOL/L (98-107); GLOMERULAR FILTRATION RATE > 60.0 (>60); GLUCOSE, FASTING 100 MG/DL (60-100); PHOSPHORUS LEVEL 3.2 MG/DL (2.5-4.9); POTASSIUM SERUM 4.4 MMOL/L (3.5-5.1); SODIUM LEVEL 140 MMOL/L (136-145); TOTAL PROTEIN 7.9 G/DL (5.7-8.2); TRIGLYCERIDES LEVEL 43 MG/DL (<150)
== END ==
LOC: M LAB 12:07
PROVIDERS: ATTEND Internal Medicine
DX: K31.84 Gastroparesis (principal); Q79.60 Ehlers-Danlos syndrome, unspecified; E46 Unspecified protein-calorie malnutrition; Z79.899 Other long term (current) drug therapy

== ENCOUNTER → 2025-01-20 | Outpatient (CLI) | payer MEDICARE, BC ==
[~2025-01-20] VITALS: Ht 172.7 cm; Wt 46.8 kg
[~2025-01-20] MED LIST changes: +ENOX60IN3 SC; +LEVE15SO PO
[2025-01-20 17:20] VITALS: BP 119/69; O2SAT 98
== END ==
LOC: M INFU 17:00
PROVIDERS: ATTEND Nurse Practitioner Adult Health
DX: Z48.01 Encounter for change or removal of surgical wound dressing (principal)

== ENCOUNTER 2025-01-21 03:54 | Inpatient (IN) | payer MEDICARE, BC ==
[~2025-01-21] VITALS: Ht 172.7 cm; Wt 46.8 kg
[~2025-01-21 03:54] MED LIST changes: -ENOX60IN3 SC; -LEVE15SO PO
[2025-01-21 04:34] LABS: VENOUS O2 SATURATION 93.7 % (60.0-80.0); VENOUS PARTIAL PRESSURE CO2 34.7 mmHg (38.0-50.0); VENOUS STANDARD HCO3 22.7 MMOL/L; VENOUS TOTAL CO2 23.1 MMOL/L (24.0-28.0)
[2025-01-21 04:39] LABS: KETONE, URINE AUTO RFX NEGATIVE (NEGATIVE); LEUKOCYTE ESTERASE UR AUTO RFX TRACE (NEGATIVE); MUCUS, URINE RFX SMALL (NEGATIVE); NITRITE, URINE AUTO RFX NEGATIVE (NEGATIVE); RBC, URINE AUTO RFX TNTC /HPF (0-3); SQUAM EPITHELIAL CELL UR AURFX 1 /HPF (0-6)
[2025-01-21 04:39] LABS: BASO % 0.2 % (0.0-1.0); EOS # 0.2 10^3/uL (0.0-0.5); EOS % 3.5 % (0.0-3.0); HEMATOCRIT 27.3 % (36.0-47.0); LYMPH # 0.8 10^3/uL (1.5-5.0); LYMPH % 18.2 % (24.0-44.0); MEAN CORPUSCULAR HEMOGLOBIN 30.3 pg (27.0-33.0); MEAN CORPUSCULAR VOLUME 91.9 fl (80.0-96.0); MONO # 0.4 10^3/uL (0.0-0.8); MONO % 7.9 % (2.0-8.0); NEUTROPHILS # 3.2 10^3/uL (1.5-8.5); PLATELET COUNT, AUTOMATED 170 10^3/uL (150-450); RED BLOOD COUNT 2.97 10^6/uL (4.00-5.40); WHITE BLOOD COUNT 4.6 10^3/uL (4.0-10.0)
[2025-01-21 04:40] LABS: WBC, URINE AUTO RFX 14 /HPF (0-3)
[2025-01-21 04:51] LABS: INR 1.09; PARTIAL THROMBOPLASTIN TIME 31.1 SECONDS (24.8-34.2); PROTHROMBIN TIME 14.4 SECONDS (12.5-14.5)
[2025-01-21] MEDS: ACETAMINOPHEN *IV* 1,000 MG in IV 1 EA IV ONE (05:13)
[2025-01-21] MEDS: NS (Normal Saline) 0.9% 1,000 ML IV ONE ×2 (06:13→10:23)
[2025-01-21] MEDS: MAG SULF 1GM/100ML (MAG RUN) 1 GM in IV 1 EA IV ONE (06:15)
[2025-01-21] MEDS: SUMAtriptan SUCCINATE 6MG/0.5ML VIAL SC ONE (06:15)
[2025-01-21 06:37] LABS: ALBUMIN 2.8 G/DL (3.2-5.2); ALKALINE PHOSPHATASE 203 U/L (35-104); ALT/SGPT 88 U/L (7.0-40); AMYLASE 75 U/L (30-118); AST/SGOT 22 U/L (<34); BILIRUBIN,DIRECT 0.5 MG/DL (<0.4); BILIRUBIN,TOTAL 0.7 MG/DL (0.3-1.2); BLOOD UREA NITROGEN 11 MG/DL (9-23); C REACTIVE PROTEIN QUANTITATIV < 0.50 MG/DL (<1.0); CALCIUM LEVEL 8.2 MG/DL (8.5-10.1); CARBON DIOXIDE LEVEL 23 MMOL/L (20-31); CHLORIDE LEVEL 110 MMOL/L (98-107); CREATININE FOR GFR 0.52 MG/DL (0.55-1.30); GLOMERULAR FILTRATION RATE > 60.0 (>60); GLUCOSE, FASTING 118 MG/DL (60-100); POTASSIUM SERUM 3.3 MMOL/L (3.5-5.1); PROCALCITONIN 0.07 ng/ml; SODIUM LEVEL 142 MMOL/L (136-145); TOTAL PROTEIN 6.7 G/DL (5.7-8.2)
[2025-01-21] MEDS ORDERED: SODIUM CHLORIDE 0.9% INJ 10 ML SYR IV PRN (08:05)
[2025-01-21] MEDS ORDERED: ENOX60IN3 SC (10:00)
[2025-01-21] MEDS ORDERED: MORP1SOL4 PO (10:00)
[2025-01-21] MEDS ORDERED: LEVE15SO PO (10:00)
[2025-01-21] MEDS ORDERED: OLAN5ZYD SL (10:00)
[2025-01-21] MEDS ORDERED: PANT40IN4 IV (10:00)
[2025-01-21] MEDS ORDERED: HOME MED LIST COMPLETE! XX SCH (10:05)
[2025-01-21] MEDS: LevoFLOXacin IV 750 MG in IV 1 EA IV ONE (10:23)
[2025-01-21] MEDS ORDERED: BISACODYL 10MG SUPP PR PRN (11:00)
[2025-01-21] MEDS ORDERED: PROMETHAZINE 25MG/ML 1ML VIAL IM PRN (11:00)
[2025-01-21] MEDS: MORPHINE SULFATE ORAL SOLN 10 MG/5 ML UD PO PRN (12:17)
[2025-01-21] MEDS: MEROPENEM INJ 1 GM in IV 1 EA IV SCH (12:17)
[2025-01-21] MEDS: ENOXAPARIN 60MG/0.6ML SYRINGE (J1650 PER 10MG) SC SCH (12:18)
[2025-01-21] MEDS: SODIUM CHLORIDE 0.9% INJ 10 ML SYR IV SCH (12:18)
[2025-01-21 15:00] VITALS: BP 114/77; TEMP 98.1; O2SAT 100
[2025-01-21] MEDS ORDERED: ISOVUE-370 76% 100ML VIAL As Ordered ONE (15:26)
[2025-01-21] MEDS: MORPHINE 10MG/0.5ML ORAL CONCENTRATE SOLUTION U/D SL SCH (16:59)
[2025-01-21] MEDS ORDERED: DICYCLOMINE INJ 20MG/2ML IM PRN (18:25)
[2025-01-21] MEDS: ADVAIR HFA 230/21MCG INHALER INH SCH (20:03)
[2025-01-21] MEDS: FAMOTIDINE 20 MG TAB PO SCH (21:00)
[2025-01-21] MEDS: PANTOPRAZOLE 40MG VIAL IV SCH (21:00)
[2025-01-21] MEDS: levETIRAcetam 250MG TABLET (KEPPRA) PO SCH (21:11)
[2025-01-21] MEDS: PREGABALIN 75 MG CAP(LYRICA) PO SCH (21:11)
[2025-01-21] MEDS: diphenhydrAMINE 50MG/ML VIAL IV PRN (21:47)
[2025-01-22] VITALS (8 sets, daily range): BP systolic 90–104; BP diastolic 40–60; TEMP 100.3–103; O2SAT 98–100
[2025-01-22] MEDS: ACETAMINOPHEN 325 MG TAB PO PRN (04:17)
[2025-01-22] MEDS: DOXYCYCLINE HYCLATE 100 MG in DEXTROSE 5% (D5W) MINI-BAG PLU 100 ML IV SCH (05:10)
[2025-01-22] MEDS: SODIUM CHLORIDE 0.9% 1000 ML IV STA (05:25)
[2025-01-22 05:30] LABS: BASO % 0.3 % (0.0-1.0); EOS % 0.3 % (0.0-3.0); HEMATOCRIT 27.9 % (36.0-47.0); HEMOGLOBIN 9.2 g/dl (12.0-15.5); LYMPH # 0.9 10^3/uL (1.5-5.0); LYMPH % 22.7 % (24.0-44.0); MEAN CORPUSCULAR HEMOGLOBIN 30.6 pg (27.0-33.0); MEAN CORPUSCULAR VOLUME 92.7 fl (80.0-96.0); MONO # 0.3 10^3/uL (0.0-0.8); MONO % 7.5 % (2.0-8.0); NEUTROPHILS # 2.7 10^3/uL (1.5-8.5); NEUTROPHILS % 68.9 % (36.0-66.0); PLATELET COUNT, AUTOMATED 124 10^3/uL (150-450); RED BLOOD COUNT 3.01 10^6/uL (4.00-5.40); WHITE BLOOD COUNT 3.9 10^3/uL (4.0-10.0)
[2025-01-22 05:39] LABS: ALBUMIN 2.7 G/DL (3.2-5.2); ALKALINE PHOSPHATASE 172 U/L (35-104); ALT/SGPT 66 U/L (7.0-40); AST/SGOT 18 U/L (<34); BILIRUBIN,TOTAL 0.7 MG/DL (0.3-1.2); BLOOD UREA NITROGEN 7 MG/DL (9-23); CALCIUM LEVEL 8.3 MG/DL (8.5-10.1); CARBON DIOXIDE LEVEL 25 MMOL/L (20-31); CHLORIDE LEVEL 104 MMOL/L (98-107); CREATININE FOR GFR 0.71 MG/DL (0.55-1.30); GLOMERULAR FILTRATION RATE > 60.0 (>60); GLUCOSE, FASTING 84 MG/DL (60-100); POTASSIUM SERUM 3.4 MMOL/L (3.5-5.1); SODIUM LEVEL 139 MMOL/L (136-145); TOTAL PROTEIN 6.2 G/DL (5.7-8.2)
[2025-01-22] MEDS ORDERED: OLANZapine ORAL DISINTEGRATING TAB 5MG SL SCH (09:00)
[2025-01-22] MEDS ORDERED: SERTRALINE 100 MG TAB PO SCH (09:00)
[2025-01-22] MEDS: DAPTOmycin 500 MG in NS 50 ML IV SCH (10:02)
[2025-01-22] MEDS ORDERED: levETIRAcetam INJection 500 MG in IV 1 EA IV SCH (10:45)
[2025-01-22] MEDS: levETIRAcetam INJection 500 MG in DEXTROSE 5% (D5W) MINI-BAG PLU 100 ML IV SCH (11:09)
[2025-01-22] MEDS ORDERED: levETIRAcetam INJection 500 MG in DEXTROSE 5% (D5W) MINI-BAG PLU 100 ML IV SCH (11:10)
[2025-01-22] MEDS: ACETAMINOPHEN *IV* 500 MG in IV 1 EA IV PRN (11:23)
[2025-01-22] MEDS: SODIUM CHLORIDE 0.9% 1000 ML IV ONE (14:56)
[2025-01-22] MEDS: diphenhydrAMINE 50MG/ML VIAL IV PRN (14:56)
[2025-01-22] MEDS: NS (Normal Saline) 0.9% 1,000 ML IV SCH (14:56)
[2025-01-22] MEDS: MORPHINE 10MG/0.5ML ORAL CONCENTRATE SOLUTION U/D SL PRN (15:10)
[2025-01-22] MEDS: OLANZapine ORAL DISINTEGRATING TAB 5MG SL SCH (21:04)
[2025-01-23] VITALS (15 sets, daily range): BP systolic 85–111; BP diastolic 40–68; TEMP 97.3–102.9; O2SAT 95–100
[2025-01-23] MEDS ORDERED: GLUCAGON INJ 1MG VIAL SC PRN (06:50)
[2025-01-23] MEDS ORDERED: GLUCOSE 4 GM CHEW PO PRN (06:50)
[2025-01-23] MEDS ORDERED: DEXTROSE 50% 50ML SYRINGE IV PRN (06:50)
[2025-01-23] MEDS: DEXTROSE 50% 50ML SYRINGE IV STA (06:54)
[2025-01-23 08:30] LABS: BASO % 0.4 % (0.0-1.0); EOS % 1.5 % (0.0-3.0); HEMATOCRIT 27.6 % (36.0-47.0); HEMOGLOBIN 9.2 g/dl (12.0-15.5); LYMPH # 0.6 10^3/uL (1.5-5.0); LYMPH % 24.3 % (24.0-44.0); MEAN CORPUSCULAR HEMOGLOBIN 30.2 pg (27.0-33.0); MEAN CORPUSCULAR HGB CONC 33.3 g/dl (32.0-36.5); MEAN CORPUSCULAR VOLUME 90.5 fl (80.0-96.0); MONO # 0.2 10^3/uL (0.0-0.8); MONO % 5.8 % (2.0-8.0); NEUTROPHILS # 1.8 10^3/uL (1.5-8.5); NEUTROPHILS % 67.6 % (36.0-66.0); PLATELET COUNT, AUTOMATED 123 10^3/uL (150-450); RED BLOOD COUNT 3.05 10^6/uL (4.00-5.40); WHITE BLOOD COUNT 2.6 10^3/uL (4.0-10.0)
[2025-01-23 08:48] LABS: BLOOD UREA NITROGEN 8 MG/DL (9-23); CALCIUM LEVEL 8.3 MG/DL (8.5-10.1); CARBON DIOXIDE LEVEL 26 MMOL/L (20-31); CHLORIDE LEVEL 104 MMOL/L (98-107); CREATININE FOR GFR 0.53 MG/DL (0.55-1.30); GLOMERULAR FILTRATION RATE > 60.0 (>60); GLUCOSE, FASTING 120 MG/DL (60-100); POTASSIUM SERUM 3.8 MMOL/L (3.5-5.1); SODIUM LEVEL 138 MMOL/L (136-145)
[2025-01-23] MEDS: D5W/LR 1,000 ML IV SCH (11:06)
[2025-01-23] MEDS: MAG SULF 1GM/100ML (MAG RUN) 1 GM in IV 1 EA IV ONE (12:04)
[2025-01-23] MEDS: ACETAMINOPHEN *IV* 1,000 MG in IV 1 EA IV SCH (20:17)
[2025-01-24] VITALS (11 sets, daily range): BP systolic 80–136; BP diastolic 42–62; TEMP 97–101; O2SAT 98–100
[2025-01-24] MEDS: NS (Normal Saline) 0.9% 1,000 ML IV ONE (04:29)
[2025-01-24 07:05] LABS: BASO % 0.6 % (0.0-1.0); EOS % 1.9 % (0.0-3.0); HEMATOCRIT 25.5 % (36.0-47.0); HEMOGLOBIN 8.7 g/dl (12.0-15.5); LYMPH # 0.6 10^3/uL (1.5-5.0); LYMPH % 37.2 % (24.0-44.0); MEAN CORPUSCULAR HEMOGLOBIN 30.6 pg (27.0-33.0); MEAN CORPUSCULAR HGB CONC 34.1 g/dl (32.0-36.5); MEAN CORPUSCULAR VOLUME 89.8 fl (80.0-96.0); MONO # 0.2 10^3/uL (0.0-0.8); MONO % 15.4 % (2.0-8.0); NEUTROPHILS % 44.3 % (36.0-66.0); PLATELET COUNT, AUTOMATED 128 10^3/uL (150-450); RED BLOOD COUNT 2.84 10^6/uL (4.00-5.40); WHITE BLOOD COUNT 1.6 10^3/uL (4.0-10.0)
[2025-01-24 07:06] LABS: NEUTROPHILS # 0.7 10^3/uL (1.5-8.5)
[2025-01-24 07:26] LABS: C REACTIVE PROTEIN QUANTITATIV 2.88 MG/DL (<1.0)
[2025-01-24 07:30] LABS: BLOOD UREA NITROGEN < 5 MG/DL (9-23); CALCIUM LEVEL 7.8 MG/DL (8.5-10.1); CARBON DIOXIDE LEVEL 26 MMOL/L (20-31); CHLORIDE LEVEL 107 MMOL/L (98-107); CREATININE FOR GFR 0.48 MG/DL (0.55-1.30); GLOMERULAR FILTRATION RATE > 60.0 (>60); GLUCOSE, FASTING 104 MG/DL (60-100); POTASSIUM SERUM 3.2 MMOL/L (3.5-5.1); SODIUM LEVEL 143 MMOL/L (136-145)
[2025-01-24 07:37] LABS: PLATELET ESTIMATE DECREASED (NORMAL)
[2025-01-24] MEDS: KCL 10MEQ/100ML SWI (KRUN) 10 MEQ in IV 1 EA IV SCH (14:00)
[2025-01-24] MEDS: MORPHINE 4 MG/ML 1ML VIAL IV PRN (15:46)
[2025-01-24] MEDS ORDERED: KCL 10MEQ/100ML SWI (KRUN) 10 MEQ in IV 1 EA IV SCH (17:15)
[2025-01-24] MEDS: KCL 10MEQ/100ML SWI (KRUN) 10 MEQ in IV 1 EA IV ONE (17:20)
[2025-01-25] VITALS (8 sets, daily range): BP systolic 84–93; BP diastolic 50–60; TEMP 96.2–99; O2SAT 88–100
[2025-01-25 06:19] LABS: EOS # 0.1 10^3/uL (0.0-0.5); EOS % 3.1 % (0.0-3.0); HEMATOCRIT 27.4 % (36.0-47.0); LYMPH # 0.8 10^3/uL (1.5-5.0); LYMPH % 42.4 % (24.0-44.0); MEAN CORPUSCULAR HEMOGLOBIN 29.8 pg (27.0-33.0); MEAN CORPUSCULAR HGB CONC 32.8 g/dl (32.0-36.5); MEAN CORPUSCULAR VOLUME 90.7 fl (80.0-96.0); MONO # 0.3 10^3/uL (0.0-0.8); MONO % 13.1 % (2.0-8.0); NEUTROPHILS % 40.9 % (36.0-66.0); PLATELET COUNT, AUTOMATED 149 10^3/uL (150-450); RED BLOOD COUNT 3.02 10^6/uL (4.00-5.40); WHITE BLOOD COUNT 1.9 10^3/uL (4.0-10.0)
[2025-01-25 06:45] LABS: C REACTIVE PROTEIN QUANTITATIV 1.76 MG/DL (<1.0); PREALBUMIN 8.1 MG/DL (10.0-40.0)
[2025-01-25 06:51] LABS: ALBUMIN 2.5 G/DL (3.2-5.2); ALKALINE PHOSPHATASE 185 U/L (35-104); ALT/SGPT 61 U/L (7.0-40); AST/SGOT 41 U/L (<34); BILIRUBIN,TOTAL 0.6 MG/DL (0.3-1.2); BLOOD UREA NITROGEN < 5 MG/DL (9-23); CALCIUM LEVEL 8.2 MG/DL (8.5-10.1); CARBON DIOXIDE LEVEL 26 MMOL/L (20-31); CHLORIDE LEVEL 108 MMOL/L (98-107); GLOMERULAR FILTRATION RATE > 60.0 (>60); GLUCOSE, FASTING 128 MG/DL (60-100); MAGNESIUM LEVEL 1.9 MG/DL (1.8-2.4); POTASSIUM SERUM 3.4 MMOL/L (3.5-5.1); SODIUM LEVEL 142 MMOL/L (136-145); TOTAL PROTEIN 5.9 G/DL (5.7-8.2)
[2025-01-25 07:11] LABS: NEUTROPHILS # 0.8 10^3/uL (1.5-8.5)
[2025-01-25] MEDS: KCL 10MEQ/100ML SWI (KRUN) 10 MEQ in IV 1 EA IV SCH (14:44)
[2025-01-26] VITALS (8 sets, daily range): BP systolic 84–100; BP diastolic 52–64; TEMP 97.1–98.9; O2SAT 97–100
[2025-01-26 05:23] LABS: EOS # 0.1 10^3/uL (0.0-0.5); EOS % 2.1 % (0.0-3.0); LYMPH # 1.1 10^3/uL (1.5-5.0); LYMPH % 46.2 % (24.0-44.0); MEAN CORPUSCULAR HEMOGLOBIN 30.4 pg (27.0-33.0); MEAN CORPUSCULAR HGB CONC 33.3 g/dl (32.0-36.5); MEAN CORPUSCULAR VOLUME 91.2 fl (80.0-96.0); MONO # 0.2 10^3/uL (0.0-0.8); MONO % 9.3 % (2.0-8.0); NEUTROPHILS % 42.4 % (36.0-66.0); PLATELET COUNT, AUTOMATED 147 10^3/uL (150-450); RED BLOOD COUNT 2.96 10^6/uL (4.00-5.40); WHITE BLOOD COUNT 2.4 10^3/uL (4.0-10.0)
[2025-01-26 05:58] LABS: BLOOD UREA NITROGEN < 5 MG/DL (9-23); CALCIUM LEVEL 8.1 MG/DL (8.5-10.1); CARBON DIOXIDE LEVEL 25 MMOL/L (20-31); CHLORIDE LEVEL 111 MMOL/L (98-107); CREATININE FOR GFR 0.41 MG/DL (0.55-1.30); GLOMERULAR FILTRATION RATE > 60.0 (>60); GLUCOSE, FASTING 104 MG/DL (60-100); MAGNESIUM LEVEL 1.8 MG/DL (1.8-2.4); POTASSIUM SERUM 3.4 MMOL/L (3.5-5.1); SODIUM LEVEL 144 MMOL/L (136-145)
[2025-01-26] MEDS: KCL 10MEQ/100ML SWI (KRUN) 10 MEQ in IV 1 EA IV SCH (08:12)
[2025-01-27] VITALS (9 sets, daily range): BP systolic 80–112; BP diastolic 49–64; TEMP 96.3–98.7; O2SAT 96–99
[2025-01-27] MEDS: NS 500 ML IV ONE (05:31)
[2025-01-27 06:17] LABS: BLOOD UREA NITROGEN < 5 MG/DL (9-23); CALCIUM LEVEL 8.1 MG/DL (8.5-10.1); CARBON DIOXIDE LEVEL 27 MMOL/L (20-31); CHLORIDE LEVEL 107 MMOL/L (98-107); CREATININE FOR GFR 0.41 MG/DL (0.55-1.30); GLOMERULAR FILTRATION RATE > 60.0 (>60); GLUCOSE, FASTING 90 MG/DL (60-100); MAGNESIUM LEVEL 1.8 MG/DL (1.8-2.4); POTASSIUM SERUM 3.6 MMOL/L (3.5-5.1); SODIUM LEVEL 142 MMOL/L (136-145)
[2025-01-27] MEDS: DAPTOmycin 500 MG in NS 50 ML IV SCH (11:25)
[2025-01-27] MEDS ORDERED: HEPARIN 1,000UNITS/ML 10ML VIAL (FOR RADIOLOGY & DIALYSIS ONLY) IV PRN (15:30)
[2025-01-27] MEDS ORDERED: LIDOCAINE 1% MDV 20ML VIAL As Ordered ONE (16:06)
[2025-01-27] MEDS: MIDAZOLAM INJ 2MG/2ML VIAL IV PRN (16:42)
[2025-01-27] MEDS: fentaNYL 100 MCG/2 ML INJECTION IV PRN (16:43)
[2025-01-27] MEDS: LIDOCAINE 1% MDV 20ML VIAL SC ONE (17:03)
[2025-01-27] MEDS: NS (Normal Saline) 0.9% 1,000 ML IV SCH (17:42)
[2025-01-28] VITALS (7 sets, daily range): BP systolic 89–106; BP diastolic 46–64; TEMP 97.5–99.6; O2SAT 96–100
[2025-01-28] MEDS: NS 500 ML IV ONE (03:05)
[2025-01-28 06:44] LABS: HEMATOCRIT 27.4 % (36.0-47.0); HEMOGLOBIN 8.8 g/dl (12.0-15.5); LYMPH # 1.2 10^3/uL (1.5-5.0); LYMPH % 42.4 % (24.0-44.0); MEAN CORPUSCULAR HEMOGLOBIN 29.7 pg (27.0-33.0); MEAN CORPUSCULAR HGB CONC 32.1 g/dl (32.0-36.5); MEAN CORPUSCULAR VOLUME 92.6 fl (80.0-96.0); MONO # 0.3 10^3/uL (0.0-0.8); MONO % 9.7 % (2.0-8.0); NEUTROPHILS # 1.4 10^3/uL (1.5-8.5); NEUTROPHILS % 46.9 % (36.0-66.0); PLATELET COUNT, AUTOMATED 191 10^3/uL (150-450); RED BLOOD COUNT 2.96 10^6/uL (4.00-5.40); WHITE BLOOD COUNT 2.9 10^3/uL (4.0-10.0)
[2025-01-28 06:58] LABS: BLOOD UREA NITROGEN < 5 MG/DL (9-23); CALCIUM LEVEL 8.1 MG/DL (8.5-10.1); CARBON DIOXIDE LEVEL 27 MMOL/L (20-31); CHLORIDE LEVEL 108 MMOL/L (98-107); CREATININE FOR GFR 0.41 MG/DL (0.55-1.30); GLOMERULAR FILTRATION RATE > 60.0 (>60); GLUCOSE, FASTING 101 MG/DL (60-100); MAGNESIUM LEVEL 1.8 MG/DL (1.8-2.4); POTASSIUM SERUM 3.5 MMOL/L (3.5-5.1); SODIUM LEVEL 143 MMOL/L (136-145)
[2025-01-28 14:02] LABS: CPK CREATINE PHOSPHOKINASE 25 U/L (34-145)
[2025-01-28] MEDS: ONDANSETRON 4MG ORAL DISINTEGRATING TAB PO PRN (15:57)
[2025-01-29] VITALS: BP 99/55; TEMP 98.5; O2SAT 97
[2025-01-29 04:02] VITALS: BP 93/65; TEMP 96.6; O2SAT 98
[2025-01-29 07:06] LABS: BLOOD UREA NITROGEN < 5 MG/DL (9-23); CALCIUM LEVEL 8.1 MG/DL (8.5-10.1); CARBON DIOXIDE LEVEL 26 MMOL/L (20-31); CHLORIDE LEVEL 107 MMOL/L (98-107); CREATININE FOR GFR 0.41 MG/DL (0.55-1.30); GLOMERULAR FILTRATION RATE > 60.0 (>60); GLUCOSE, FASTING 96 MG/DL (60-100); MAGNESIUM LEVEL 1.8 MG/DL (1.8-2.4); POTASSIUM SERUM 3.7 MMOL/L (3.5-5.1); SODIUM LEVEL 142 MMOL/L (136-145)
[2025-01-29 08:14] VITALS: BP 108/59; TEMP 97.5; O2SAT 98
[2025-01-29 12:13] VITALS: BP 113/79; TEMP 97.6; O2SAT 100
[2025-01-29 12:19] VITALS: BP 99/61; TEMP 98.8; O2SAT 95
[2025-01-29] MEDS ORDERED: MORP1SOL4 PO (16:48)
== END 2025-01-29 13:59 | disposition home or self-care (01) | DRG 314 ==
LOC: EDBD 03:54 → M ED 03:54 → M ED INP 10:58 → M MSPAV 14:44 → M PCU 01-23 13:46
PROVIDERS: ADMIT Internal Medicine; ATTEND Student in an Organized Health Care Education/Training Program
PROC: 02HV33Z Insertion of Infusion Device into Superior Vena Cava, Percutaneous Approach (ICD-10-PCS; principal; 2025-01-27 15:00)
DX: T82.7XXA Infection and inflammatory reaction due to other cardiac and vascular devices, implants and grafts, initial encounter (principal); A41.02 Sepsis due to Methicillin resistant Staphylococcus aureus; E43 Unspecified severe protein-calorie malnutrition; Q79.60 Ehlers-Danlos syndrome, unspecified; D80.3 Selective deficiency of immunoglobulin G [IgG] subclasses; Z68.1 Body mass index [BMI] 19.9 or less, adult; J45.909 Unspecified asthma, uncomplicated; Z93.1 Gastrostomy status; R33.9 Retention of urine, unspecified; K21.9 Gastro-esophageal reflux disease without esophagitis; K31.84 Gastroparesis; K59.00 Constipation, unspecified; G90.A Postural orthostatic tachycardia syndrome [POTS]; D50.9 Iron deficiency anemia, unspecified; G62.9 Polyneuropathy, unspecified; E87.6 Hypokalemia; F41.9 Anxiety disorder, unspecified; Z79.899 Other long term (current) drug therapy; Z88.8 Allergy status to other drugs, medicaments and biological substances; K81.9 Cholecystitis, unspecified; Z49.01 Encounter for fitting and adjustment of extracorporeal dialysis catheter; G43.909 Migraine, unspecified, not intractable, without status migrainosus; F39 Unspecified mood [affective] disorder; Z93.4 Other artificial openings of gastrointestinal tract status; Y84.8 Other medical procedures as the cause of abnormal reaction of the patient, or of later complication, without mention of misadventure at the time of the procedure

== ENCOUNTER → 2025-02-03 | Outpatient (REF) | payer MEDICARE, BC ==
[~2025-02-03] MED LIST changes: +ENOX60IN3 SC; +LEVE15SO PO; +MORP1SOL5 PO
[2025-02-03 12:31] LABS: BASO % 0.8 % (0.0-1.0); EOS # 0.3 10^3/uL (0.0-0.5); EOS % 5.3 % (0.0-3.0); LYMPH # 2.4 10^3/uL (1.5-5.0); LYMPH % 49.8 % (24.0-44.0); MEAN CORPUSCULAR HEMOGLOBIN 29.9 pg (27.0-33.0); MEAN CORPUSCULAR HGB CONC 32.3 g/dl (32.0-36.5); MEAN CORPUSCULAR VOLUME 92.8 fl (80.0-96.0); MONO # 0.6 10^3/uL (0.0-0.8); NEUTROPHILS # 1.5 10^3/uL (1.5-8.5); NEUTROPHILS % 30.9 % (36.0-66.0); PLATELET COUNT, AUTOMATED 257 10^3/uL (150-450); RED BLOOD COUNT 3.34 10^6/uL (4.00-5.40); WHITE BLOOD COUNT 4.8 10^3/uL (4.0-10.0)
[2025-02-03 12:58] LABS: C REACTIVE PROTEIN QUANTITATIV < 0.50 MG/DL (<1.0)
[2025-02-03 12:59] LABS: ALBUMIN 2.9 G/DL (3.2-5.2); ALKALINE PHOSPHATASE 193 U/L (35-104); ALT/SGPT 32 U/L (7.0-40); AST/SGOT 25 U/L (<34); BILIRUBIN,DIRECT 0.3 MG/DL (<0.4); BILIRUBIN,TOTAL 0.5 MG/DL (0.3-1.2); BLOOD UREA NITROGEN 23 MG/DL (9-23); CALCIUM LEVEL 8.5 MG/DL (8.5-10.1); CARBON DIOXIDE LEVEL 28 MMOL/L (20-31); CHLORIDE LEVEL 106 MMOL/L (98-107); CPK CREATINE PHOSPHOKINASE 18 U/L (34-145); CREATININE FOR GFR 0.38 MG/DL (0.55-1.30); GLOMERULAR FILTRATION RATE > 60.0 (>60); GLUCOSE, FASTING 68 MG/DL (60-100); POTASSIUM SERUM 4.6 MMOL/L (3.5-5.1); SODIUM LEVEL 141 MMOL/L (136-145); TOTAL PROTEIN 6.6 G/DL (5.7-8.2)
[2025-02-04 15:44] LABS: MAGNESIUM LEVEL 2.1 MG/DL (1.8-2.4); PHOSPHORUS LEVEL 3.6 MG/DL (2.5-4.9); TRIGLYCERIDES LEVEL 101 MG/DL (<150)
== END ==
LOC: M LAB REF 10:22
PROVIDERS: ATTEND Physician Assistant
DX: R74.01 Elevation of levels of liver transaminase levels (principal); Q79.60 Ehlers-Danlos syndrome, unspecified; K31.84 Gastroparesis; K81.1 Chronic cholecystitis

== ENCOUNTER → 2025-02-10 | Outpatient (REF) | payer MEDICARE, BC ==
[2025-02-10 11:32] LABS: BASO % 0.5 % (0.0-1.0); EOS # 0.2 10^3/uL (0.0-0.5); EOS % 5.4 % (0.0-3.0); HEMOGLOBIN 9.9 g/dl (12.0-15.5); LYMPH # 2.1 10^3/uL (1.5-5.0); LYMPH % 50.6 % (24.0-44.0); MEAN CORPUSCULAR HEMOGLOBIN 28.9 pg (27.0-33.0); MEAN CORPUSCULAR HGB CONC 31.9 g/dl (32.0-36.5); MEAN CORPUSCULAR VOLUME 90.4 fl (80.0-96.0); MONO # 0.5 10^3/uL (0.0-0.8); NEUTROPHILS # 1.3 10^3/uL (1.5-8.5); NEUTROPHILS % 31.3 % (36.0-66.0); PLATELET COUNT, AUTOMATED 208 10^3/uL (150-450); RED BLOOD COUNT 3.43 10^6/uL (4.00-5.40); WHITE BLOOD COUNT 4.1 10^3/uL (4.0-10.0)
[2025-02-10 11:53] LABS: ALBUMIN 2.9 G/DL (3.2-5.2); ALKALINE PHOSPHATASE 119 U/L (35-104); ALT/SGPT 32 U/L (7.0-40); AST/SGOT 22 U/L (<34); BILIRUBIN,DIRECT 0.3 MG/DL (<0.4); BILIRUBIN,TOTAL 0.5 MG/DL (0.3-1.2); BLOOD UREA NITROGEN 23 MG/DL (9-23); C REACTIVE PROTEIN QUANTITATIV < 0.50 MG/DL (<1.0); CALCIUM LEVEL 8.9 MG/DL (8.5-10.1); CARBON DIOXIDE LEVEL 30 MMOL/L (20-31); CHLORIDE LEVEL 103 MMOL/L (98-107); CPK CREATINE PHOSPHOKINASE 23 U/L (34-145); CREATININE FOR GFR 0.48 MG/DL (0.55-1.30); GLOMERULAR FILTRATION RATE > 60.0 (>60); GLUCOSE, FASTING 54 MG/DL (60-100); POTASSIUM SERUM 4.5 MMOL/L (3.5-5.1); SODIUM LEVEL 141 MMOL/L (136-145); TOTAL PROTEIN 6.5 G/DL (5.7-8.2)
== END ==
LOC: M LAB REF 10:37
PROVIDERS: ATTEND Physician Assistant
DX: R74.01 Elevation of levels of liver transaminase levels (principal); Q79.60 Ehlers-Danlos syndrome, unspecified; K31.84 Gastroparesis; K81.1 Chronic cholecystitis

== ENCOUNTER → 2025-02-17 | Outpatient (REF) | payer MEDICARE, BC ==
[2025-02-17 13:46] LABS: BASO % 0.3 % (0.0-1.0); EOS # 0.2 10^3/uL (0.0-0.5); EOS % 6.4 % (0.0-3.0); HEMATOCRIT 30.6 % (36.0-47.0); LYMPH # 1.7 10^3/uL (1.5-5.0); LYMPH % 49.9 % (24.0-44.0); MEAN CORPUSCULAR HEMOGLOBIN 29.2 pg (27.0-33.0); MEAN CORPUSCULAR HGB CONC 32.7 g/dl (32.0-36.5); MEAN CORPUSCULAR VOLUME 89.2 fl (80.0-96.0); MONO # 0.3 10^3/uL (0.0-0.8); MONO % 8.5 % (2.0-8.0); NEUTROPHILS # 1.2 10^3/uL (1.5-8.5); NEUTROPHILS % 34.6 % (36.0-66.0); PLATELET COUNT, AUTOMATED 161 10^3/uL (150-450); RED BLOOD COUNT 3.43 10^6/uL (4.00-5.40); WHITE BLOOD COUNT 3.4 10^3/uL (4.0-10.0)
[2025-02-17 14:13] LABS: CPK CREATINE PHOSPHOKINASE 21 U/L (34-145)
[2025-02-17 14:14] LABS: ALBUMIN 3.2 G/DL (3.2-5.2); ALKALINE PHOSPHATASE 116 U/L (35-104); ALT/SGPT 34 U/L (7.0-40); AST/SGOT 36 U/L (<34); BILIRUBIN,DIRECT 0.2 MG/DL (<0.4); BILIRUBIN,TOTAL 0.4 MG/DL (0.3-1.2); BLOOD UREA NITROGEN 17 MG/DL (9-23); C REACTIVE PROTEIN QUANTITATIV < 0.50 MG/DL (<1.0); CALCIUM LEVEL 8.8 MG/DL (8.5-10.1); CARBON DIOXIDE LEVEL 27 MMOL/L (20-31); CHLORIDE LEVEL 105 MMOL/L (98-107); CREATININE FOR GFR 0.59 MG/DL (0.55-1.30); GLOMERULAR FILTRATION RATE > 60.0 (>60); GLUCOSE, FASTING 88 MG/DL (60-100); POTASSIUM SERUM 3.6 MMOL/L (3.5-5.1); SODIUM LEVEL 140 MMOL/L (136-145); TOTAL PROTEIN 6.7 G/DL (5.7-8.2)
== END ==
LOC: M LAB REF 12:38
PROVIDERS: ATTEND Physician Assistant
DX: R74.01 Elevation of levels of liver transaminase levels (principal); Q79.60 Ehlers-Danlos syndrome, unspecified; K31.84 Gastroparesis; K81.1 Chronic cholecystitis

== ENCOUNTER → 2025-02-24 | Outpatient (REF) | payer MEDICARE, BC ==
[~2025-02-24] MED LIST changes: +OLAN10TA12 PO
[2025-02-24 11:05] LABS: BASO % 0.5 % (0.0-1.0); EOS # 0.2 10^3/uL (0.0-0.5); EOS % 4.6 % (0.0-3.0); HEMATOCRIT 31.1 % (36.0-47.0); HEMOGLOBIN 10.3 g/dl (12.0-15.5); LYMPH # 1.9 10^3/uL (1.5-5.0); LYMPH % 48.5 % (24.0-44.0); MEAN CORPUSCULAR HEMOGLOBIN 28.8 pg (27.0-33.0); MEAN CORPUSCULAR HGB CONC 33.1 g/dl (32.0-36.5); MEAN CORPUSCULAR VOLUME 86.9 fl (80.0-96.0); MONO # 0.4 10^3/uL (0.0-0.8); MONO % 10.2 % (2.0-8.0); NEUTROPHILS # 1.4 10^3/uL (1.5-8.5); NEUTROPHILS % 35.9 % (36.0-66.0); PLATELET COUNT, AUTOMATED 210 10^3/uL (150-450); RED BLOOD COUNT 3.58 10^6/uL (4.00-5.40); WHITE BLOOD COUNT 3.9 10^3/uL (4.0-10.0)
[2025-02-24 11:24] LABS: ALBUMIN 3.1 G/DL (3.2-5.2); ALKALINE PHOSPHATASE 117 U/L (35-104); ALT/SGPT 29 U/L (7.0-40); AST/SGOT 21 U/L (<34); BILIRUBIN,DIRECT 0.2 MG/DL (<0.4); BILIRUBIN,TOTAL 0.4 MG/DL (0.3-1.2); BLOOD UREA NITROGEN 19 MG/DL (9-23); C REACTIVE PROTEIN QUANTITATIV < 0.50 MG/DL (<1.0); CALCIUM LEVEL 8.3 MG/DL (8.5-10.1); CARBON DIOXIDE LEVEL 25 MMOL/L (20-31); CHLORIDE LEVEL 105 MMOL/L (98-107); CPK CREATINE PHOSPHOKINASE 21 U/L (34-145); CREATININE FOR GFR 0.53 MG/DL (0.55-1.30); GLOMERULAR FILTRATION RATE > 60.0 (>60); GLUCOSE, FASTING 95 MG/DL (60-100); POTASSIUM SERUM 4.4 MMOL/L (3.5-5.1); SODIUM LEVEL 139 MMOL/L (136-145); TOTAL PROTEIN 6.5 G/DL (5.7-8.2)
[2025-02-27 08:36] LABS: IRON (FE) 93 UG/DL (50-170); PERCENT SATURATION 28.1 % (13.2-45.0); TOTAL IRON BINDING CAPACITY 331 UG/DL (250-425)
[2025-02-27 08:38] LABS: FERRITIN 13.2 NG/ML (7.3-270.7); FOLATE 12.8 NG/ML (>5.4); VITAMIN B12 LEVEL 775 PG/ML (211-911)
== END ==
LOC: M LAB REF 10:30
PROVIDERS: ATTEND Physician Assistant
DX: Q79.60 Ehlers-Danlos syndrome, unspecified (principal); K31.84 Gastroparesis; K81.1 Chronic cholecystitis; R74.01 Elevation of levels of liver transaminase levels

== ENCOUNTER → 2025-02-25 | Outpatient (CLI) | payer MEDICARE, BC, MEDICAID ==
[~2025-02-25] VITALS: Ht 170.2 cm; Wt 45.9 kg
[2025-02-25 11:40] VITALS: BP 106/77; O2SAT 96
== END ==
LOC: M PAL 11:22
PROVIDERS: ATTEND Physician Assistant
DX: Z51.5 Encounter for palliative care (principal); Q79.69 Other Ehlers-Danlos syndromes; Z99.89 Dependence on other enabling machines and devices; Z86.79 Personal history of other diseases of the circulatory system; Z79.891 Long term (current) use of opiate analgesic; Z93.1 Gastrostomy status; Z93.4 Other artificial openings of gastrointestinal tract status; Z88.8 Allergy status to other drugs, medicaments and biological substances; Z88.5 Allergy status to narcotic agent; Z88.6 Allergy status to analgesic agent; Z79.899 Other long term (current) drug therapy
CPT/HCPCS: 11042; G0463

== ENCOUNTER → 2025-03-03 | Outpatient (REF) | payer MEDICARE, BC ==
[2025-03-03 16:29] LABS: BASO % 0.2 % (0.0-1.0); EOS # 0.1 10^3/uL (0.0-0.5); HEMATOCRIT 29.1 % (36.0-47.0); HEMOGLOBIN 9.6 g/dl (12.0-15.5); LYMPH % 49.4 % (24.0-44.0); MEAN CORPUSCULAR HEMOGLOBIN 28.7 pg (27.0-33.0); MEAN CORPUSCULAR VOLUME 86.9 fl (80.0-96.0); MONO # 0.3 10^3/uL (0.0-0.8); MONO % 6.9 % (2.0-8.0); NEUTROPHILS # 1.6 10^3/uL (1.5-8.5); NEUTROPHILS % 40.5 % (36.0-66.0); PLATELET COUNT, AUTOMATED 197 10^3/uL (150-450); RED BLOOD COUNT 3.35 10^6/uL (4.00-5.40)
[2025-03-03 16:35] LABS: ALBUMIN 3.1 G/DL (3.2-5.2); ALKALINE PHOSPHATASE 103 U/L (35-104); ALT/SGPT 22 U/L (7.0-40); AST/SGOT 17 U/L (<34); BILIRUBIN,TOTAL 0.3 MG/DL (0.3-1.2); BLOOD UREA NITROGEN 19 MG/DL (9-23); CALCIUM LEVEL 8.7 MG/DL (8.5-10.1); CARBON DIOXIDE LEVEL 25 MMOL/L (20-31); CHLORIDE LEVEL 104 MMOL/L (98-107); CREATININE FOR GFR 0.51 MG/DL (0.55-1.30); GLOMERULAR FILTRATION RATE > 90.0 (>60); GLUCOSE, FASTING 87 MG/DL (60-100); MAGNESIUM LEVEL 1.8 MG/DL (1.8-2.4); PHOSPHORUS LEVEL 3.6 MG/DL (2.5-4.9); POTASSIUM SERUM 4.1 MMOL/L (3.5-5.1); SODIUM LEVEL 138 MMOL/L (136-145); TOTAL PROTEIN 6.5 G/DL (5.7-8.2); TRIGLYCERIDES LEVEL 52 MG/DL (<150)
== END ==
LOC: M LAB REF 15:50
PROVIDERS: ATTEND Internal Medicine Gastroenterology
DX: K31.84 Gastroparesis (principal); Q79.60 Ehlers-Danlos syndrome, unspecified; R74.01 Elevation of levels of liver transaminase levels; K81.1 Chronic cholecystitis

== ENCOUNTER → 2025-03-03 | Outpatient (CLI) | payer MEDICARE, BC ==
[~2025-03-03] MED LIST changes: +LIDOCAINE 1% MDV 20ML VIAL SC SCH; +LIDOCAINE 2% JELLY 6ML SYRINGE As Ordered ONE; +NS (Normal Saline) 0.9% 1,000 ML IV SCH; +SODIUM CHLORIDE 0.9% 1000 ML XX SCH
[2025-03-03 09:15] VITALS: TEMP 98
[2025-03-03] MEDS: fentaNYL 100 MCG/2 ML INJECTION IV PRN (11:14)
[2025-03-03] MEDS: MIDAZOLAM INJ 2MG/2ML VIAL IV PRN (11:14)
[2025-03-03] MEDS: ISOVUE-300 61% 100ML VIAL IV SCH (11:43)
[2025-03-03] MEDS: SODIUM CHLORIDE 0.9% INJ 10 ML SYR IV SCH (11:45)
[2025-03-03 12:04] VITALS: BP 108/67; O2SAT 99
== END ==
LOC: M IRPRO 09:05
PROVIDERS: ATTEND Radiology Diagnostic Radiology
DX: K31.84 Gastroparesis (principal); R74.01 Elevation of levels of liver transaminase levels; K81.1 Chronic cholecystitis; Q79.60 Ehlers-Danlos syndrome, unspecified
CPT/HCPCS: 47536; 49451; 80053; 83735; 84100; 84478; 85025; 99152; 99153; C1729; J1642; J2250; J3010; Q9967

== ENCOUNTER → 2025-03-10 | Outpatient (REF) | payer MEDICARE, BC ==
[~2025-03-10] MED LIST changes: -LIDOCAINE 1% MDV 20ML VIAL SC SCH; -LIDOCAINE 2% JELLY 6ML SYRINGE As Ordered ONE; -NS (Normal Saline) 0.9% 1,000 ML IV SCH; -SODIUM CHLORIDE 0.9% 1000 ML XX SCH
[2025-03-10 15:30] LABS: BASO % 0.5 % (0.0-1.0); EOS # 0.2 10^3/uL (0.0-0.5); EOS % 4.9 % (0.0-3.0); HEMATOCRIT 31.3 % (36.0-47.0); HEMOGLOBIN 10.1 g/dl (12.0-15.5); LYMPH # 2.2 10^3/uL (1.5-5.0); LYMPH % 55.4 % (24.0-44.0); MEAN CORPUSCULAR HEMOGLOBIN 28.8 pg (27.0-33.0); MEAN CORPUSCULAR HGB CONC 32.3 g/dl (32.0-36.5); MEAN CORPUSCULAR VOLUME 89.2 fl (80.0-96.0); MONO # 0.5 10^3/uL (0.0-0.8); MONO % 12.3 % (2.0-8.0); NEUTROPHILS % 26.6 % (36.0-66.0); PLATELET COUNT, AUTOMATED 209 10^3/uL (150-450); RED BLOOD COUNT 3.51 10^6/uL (4.00-5.40); WHITE BLOOD COUNT 3.9 10^3/uL (4.0-10.0)
[2025-03-10 16:00] LABS: ALBUMIN 3.1 G/DL (3.2-5.2); ALKALINE PHOSPHATASE 112 U/L (35-104); ALT/SGPT 23 U/L (7.0-40); AST/SGOT 15 U/L (<34); BILIRUBIN,TOTAL 0.3 MG/DL (0.3-1.2); BLOOD UREA NITROGEN 23 MG/DL (9-23); CALCIUM LEVEL 9.1 MG/DL (8.5-10.1); CARBON DIOXIDE LEVEL 27 MMOL/L (20-31); CHLORIDE LEVEL 107 MMOL/L (98-107); CREATININE FOR GFR 0.53 MG/DL (0.55-1.30); GLOMERULAR FILTRATION RATE > 90.0 (>60); GLUCOSE, FASTING 40 MG/DL (60-100); MAGNESIUM LEVEL 2.1 MG/DL (1.8-2.4); PHOSPHORUS LEVEL 3.8 MG/DL (2.5-4.9); POTASSIUM SERUM 4.5 MMOL/L (3.5-5.1); SODIUM LEVEL 143 MMOL/L (136-145); TOTAL PROTEIN 6.6 G/DL (5.7-8.2); TRIGLYCERIDES LEVEL 54 MG/DL (<150)
== END ==
LOC: M LAB REF 14:31
PROVIDERS: ATTEND Internal Medicine Gastroenterology
DX: K31.84 Gastroparesis (principal); Q79.60 Ehlers-Danlos syndrome, unspecified; Z79.899 Other long term (current) drug therapy; E46 Unspecified protein-calorie malnutrition; R74.01 Elevation of levels of liver transaminase levels; K81.1 Chronic cholecystitis

== ENCOUNTER → 2025-03-18 | Outpatient (REF) | payer MEDICARE, BC ==
[~2025-03-18] MED LIST changes: -DRON2.5C11 PO; +DRON2.5C17 PO; -NYST-13 TOP; +NYST0.1C TOP
[2025-03-18 13:27] LABS: BASO % 0.3 % (0.0-1.0); EOS # 0.2 10^3/uL (0.0-0.5); EOS % 2.5 % (0.0-3.0); HEMATOCRIT 31.7 % (36.0-47.0); HEMOGLOBIN 10.3 g/dl (12.0-15.5); LYMPH # 1.9 10^3/uL (1.5-5.0); LYMPH % 30.7 % (24.0-44.0); MEAN CORPUSCULAR HEMOGLOBIN 28.6 pg (27.0-33.0); MEAN CORPUSCULAR HGB CONC 32.5 g/dl (32.0-36.5); MEAN CORPUSCULAR VOLUME 88.1 fl (80.0-96.0); MONO # 0.4 10^3/uL (0.0-0.8); MONO % 6.9 % (2.0-8.0); NEUTROPHILS # 3.6 10^3/uL (1.5-8.5); NEUTROPHILS % 59.3 % (36.0-66.0); PLATELET COUNT, AUTOMATED 216 10^3/uL (150-450); WHITE BLOOD COUNT 6.1 10^3/uL (4.0-10.0)
[2025-03-18 13:53] LABS: ALBUMIN 3.2 G/DL (3.2-5.2); ALKALINE PHOSPHATASE 98 U/L (35-104); ALT/SGPT 25 U/L (7.0-40); AST/SGOT 19 U/L (<34); BILIRUBIN,DIRECT 0.2 MG/DL (<0.4); BILIRUBIN,TOTAL 0.3 MG/DL (0.3-1.2); BLOOD UREA NITROGEN 19 MG/DL (9-23); C REACTIVE PROTEIN QUANTITATIV < 0.50 MG/DL (<1.0); CALCIUM LEVEL 8.7 MG/DL (8.5-10.1); CARBON DIOXIDE LEVEL 25 MMOL/L (20-31); CHLORIDE LEVEL 104 MMOL/L (98-107); CPK CREATINE PHOSPHOKINASE 24 U/L (34-145); CREATININE FOR GFR 0.52 MG/DL (0.55-1.30); GLOMERULAR FILTRATION RATE > 90.0 (>60); GLUCOSE, FASTING 84 MG/DL (60-100); POTASSIUM SERUM 4.4 MMOL/L (3.5-5.1); SODIUM LEVEL 140 MMOL/L (136-145); TOTAL PROTEIN 6.6 G/DL (5.7-8.2)
== END ==
LOC: M LAB REF 12:19
PROVIDERS: ATTEND Physician Assistant
DX: Q79.60 Ehlers-Danlos syndrome, unspecified (principal); D84.81 Immunodeficiency due to conditions classified elsewhere; K90.9 Intestinal malabsorption, unspecified

== ENCOUNTER → 2025-03-24 | Outpatient (REF) | payer MEDICARE, BC ==
[2025-03-24 11:42] LABS: BASO % 0.5 % (0.0-1.0); EOS # 0.2 10^3/uL (0.0-0.5); EOS % 3.8 % (0.0-3.0); HEMATOCRIT 31.8 % (36.0-47.0); HEMOGLOBIN 10.4 g/dl (12.0-15.5); LYMPH # 2.3 10^3/uL (1.5-5.0); LYMPH % 41.9 % (24.0-44.0); MEAN CORPUSCULAR HEMOGLOBIN 28.7 pg (27.0-33.0); MEAN CORPUSCULAR HGB CONC 32.7 g/dl (32.0-36.5); MEAN CORPUSCULAR VOLUME 87.6 fl (80.0-96.0); MONO # 0.5 10^3/uL (0.0-0.8); MONO % 8.3 % (2.0-8.0); NEUTROPHILS # 2.5 10^3/uL (1.5-8.5); NEUTROPHILS % 45.3 % (36.0-66.0); PLATELET COUNT, AUTOMATED 206 10^3/uL (150-450); RED BLOOD COUNT 3.63 10^6/uL (4.00-5.40); WHITE BLOOD COUNT 5.6 10^3/uL (4.0-10.0)
[2025-03-24 12:17] LABS: CPK CREATINE PHOSPHOKINASE 19 U/L (34-145)
[2025-03-24 12:18] LABS: ALBUMIN 3.2 G/DL (3.2-5.2); ALKALINE PHOSPHATASE 100 U/L (35-104); ALT/SGPT 21 U/L (7.0-40); AST/SGOT 18 U/L (<34); BILIRUBIN,DIRECT 0.2 MG/DL (<0.4); BILIRUBIN,TOTAL 0.4 MG/DL (0.3-1.2); BLOOD UREA NITROGEN 24 MG/DL (9-23); C REACTIVE PROTEIN QUANTITATIV < 0.50 MG/DL (<1.0); CALCIUM LEVEL 8.9 MG/DL (8.5-10.1); CARBON DIOXIDE LEVEL 27 MMOL/L (20-31); CHLORIDE LEVEL 105 MMOL/L (98-107); CREATININE FOR GFR 0.62 MG/DL (0.55-1.30); GLOMERULAR FILTRATION RATE > 90.0 (>60); GLUCOSE, FASTING 77 MG/DL (60-100); POTASSIUM SERUM 4.2 MMOL/L (3.5-5.1); SODIUM LEVEL 141 MMOL/L (136-145); TOTAL PROTEIN 6.8 G/DL (5.7-8.2)
== END ==
LOC: M LAB REF 11:20
PROVIDERS: ATTEND Physician Assistant
DX: R74.01 Elevation of levels of liver transaminase levels (principal); Q79.60 Ehlers-Danlos syndrome, unspecified; K31.84 Gastroparesis; K81.1 Chronic cholecystitis

== ENCOUNTER → 2025-03-25 | Outpatient (CLI) | payer MEDICARE, BC, MEDICAID ==
[~2025-03-25] VITALS: Ht 175.3 cm; Wt 44.7 kg
[2025-03-25 11:35] VITALS: BP 96/65; O2SAT 100
== END ==
LOC: M PAL 11:14
PROVIDERS: ATTEND Physician Assistant
DX: Z51.5 Encounter for palliative care (principal); Q79.60 Ehlers-Danlos syndrome, unspecified; Z86.79 Personal history of other diseases of the circulatory system; Z79.891 Long term (current) use of opiate analgesic; Z88.1 Allergy status to other antibiotic agents; Z88.5 Allergy status to narcotic agent; Z88.8 Allergy status to other drugs, medicaments and biological substances; Z79.899 Other long term (current) drug therapy

== ENCOUNTER → 2025-03-31 | Outpatient (REF) | payer MEDICARE, BC, MEDICAID ==
[2025-03-31 12:19] LABS: BASO % 0.4 % (0.0-1.0); EOS # 0.2 10^3/uL (0.0-0.5); EOS % 4.5 % (0.0-3.0); HEMATOCRIT 31.2 % (36.0-47.0); HEMOGLOBIN 10.2 g/dl (12.0-15.5); LYMPH # 2.5 10^3/uL (1.5-5.0); LYMPH % 48.9 % (24.0-44.0); MEAN CORPUSCULAR HEMOGLOBIN 28.3 pg (27.0-33.0); MEAN CORPUSCULAR HGB CONC 32.7 g/dl (32.0-36.5); MEAN CORPUSCULAR VOLUME 86.7 fl (80.0-96.0); MONO # 0.5 10^3/uL (0.0-0.8); MONO % 9.1 % (2.0-8.0); NEUTROPHILS # 1.9 10^3/uL (1.5-8.5); NEUTROPHILS % 37.1 % (36.0-66.0); PLATELET COUNT, AUTOMATED 206 10^3/uL (150-450); WHITE BLOOD COUNT 5.1 10^3/uL (4.0-10.0)
[2025-03-31 12:44] LABS: ALBUMIN 3.3 G/DL (3.2-5.2); ALKALINE PHOSPHATASE 97 U/L (35-104); ALT/SGPT 26 U/L (7.0-40); AST/SGOT 18 U/L (<34); BILIRUBIN,TOTAL 0.3 MG/DL (0.3-1.2); BLOOD UREA NITROGEN 19 MG/DL (9-23); CALCIUM LEVEL 8.6 MG/DL (8.5-10.1); CARBON DIOXIDE LEVEL 27 MMOL/L (20-31); CHLORIDE LEVEL 105 MMOL/L (98-107); GLOMERULAR FILTRATION RATE > 90.0 (>60); GLUCOSE, FASTING 70 MG/DL (60-100); MAGNESIUM LEVEL 2.1 MG/DL (1.8-2.4); POTASSIUM SERUM 4.2 MMOL/L (3.5-5.1); SODIUM LEVEL 141 MMOL/L (136-145); TOTAL PROTEIN 6.8 G/DL (5.7-8.2); TRIGLYCERIDES LEVEL 51 MG/DL (<150)
== END ==
LOC: M LAB REF 11:10
PROVIDERS: ATTEND Internal Medicine Gastroenterology
DX: K31.84 Gastroparesis (principal); K81.1 Chronic cholecystitis; Q79.60 Ehlers-Danlos syndrome, unspecified; R74.01 Elevation of levels of liver transaminase levels; E46 Unspecified protein-calorie malnutrition; Z79.899 Other long term (current) drug therapy

== ENCOUNTER → 2025-04-08 | Outpatient (REF) | payer MEDICARE, BC, MEDICAID ==
[2025-04-08 16:06] LABS: BASO % 0.3 % (0.0-1.0); EOS # 0.2 10^3/uL (0.0-0.5); EOS % 5.6 % (0.0-3.0); HEMOGLOBIN 9.9 g/dl (12.0-15.5); LYMPH # 1.6 10^3/uL (1.5-5.0); LYMPH % 46.3 % (24.0-44.0); MEAN CORPUSCULAR HEMOGLOBIN 27.9 pg (27.0-33.0); MEAN CORPUSCULAR HGB CONC 31.9 g/dl (32.0-36.5); MEAN CORPUSCULAR VOLUME 87.3 fl (80.0-96.0); MONO # 0.2 10^3/uL (0.0-0.8); MONO % 6.8 % (2.0-8.0); NEUTROPHILS # 1.4 10^3/uL (1.5-8.5); NEUTROPHILS % 40.7 % (36.0-66.0); PLATELET COUNT, AUTOMATED 185 10^3/uL (150-450); RED BLOOD COUNT 3.55 10^6/uL (4.00-5.40); WHITE BLOOD COUNT 3.5 10^3/uL (4.0-10.0)
[2025-04-08 16:18] LABS: ALBUMIN 3.3 G/DL (3.2-5.2); ALKALINE PHOSPHATASE 160 U/L (35-104); ALT/SGPT 46 U/L (7.0-40); AST/SGOT 36 U/L (<34); BILIRUBIN,DIRECT 0.1 MG/DL (<0.4); BILIRUBIN,TOTAL 0.2 MG/DL (0.3-1.2); BLOOD UREA NITROGEN 13 MG/DL (9-23); C REACTIVE PROTEIN QUANTITATIV < 0.50 MG/DL (<1.0); CALCIUM LEVEL 8.5 MG/DL (8.5-10.1); CARBON DIOXIDE LEVEL 28 MMOL/L (20-31); CHLORIDE LEVEL 106 MMOL/L (98-107); CPK CREATINE PHOSPHOKINASE 104 U/L (34-145); CREATININE FOR GFR 0.59 MG/DL (0.55-1.30); GLOMERULAR FILTRATION RATE > 90.0 (>60); GLUCOSE, FASTING 91 MG/DL (60-100); MAGNESIUM LEVEL 1.9 MG/DL (1.8-2.4); PHOSPHORUS LEVEL 4.5 MG/DL (2.5-4.9); POTASSIUM SERUM 3.8 MMOL/L (3.5-5.1); SODIUM LEVEL 143 MMOL/L (136-145); TOTAL PROTEIN 6.5 G/DL (5.7-8.2); TRIGLYCERIDES LEVEL 100 MG/DL (<150)
== END ==
LOC: M LAB REF 14:40
PROVIDERS: ATTEND Physician Assistant
DX: K90.9 Intestinal malabsorption, unspecified (principal); D84.81 Immunodeficiency due to conditions classified elsewhere; Q79.60 Ehlers-Danlos syndrome, unspecified; Z79.899 Other long term (current) drug therapy

== ENCOUNTER → 2025-05-26 | Outpatient (REF) | payer MEDICARE, BC, MEDICAID ==
[~2025-05-26] MED LIST changes: +MED REC COMMENT; +MIRT-10 PO; +MORP10SO2 PO; +SUBO2MIS SL
[2025-05-26 14:29] LABS: BASO # 0.0 10^3/uL (0.0-0.2); BASO % 0.2 % (0.0-1.0); EOS # 0.2 10^3/uL (0.0-0.5); EOS % 3.9 % (0.0-3.0); LYMPH # 1.9 10^3/uL (1.5-5.0); LYMPH % 44.2 % (24.0-44.0); MONO # 0.4 10^3/uL (0.0-0.8); MONO % 9.2 % (2.0-8.0); NEUTROPHILS # 1.8 10^3/uL (1.5-8.5); NEUTROPHILS % 42.3 % (36.0-66.0); PLATELET COUNT, AUTOMATED 228 10^3/uL (150-450)
[2025-05-26 15:02] LABS: ALT/SGPT 63 U/L (7.0-40); AST/SGOT 47 U/L (<34); CALCIUM LEVEL 9.2 MG/DL (8.5-10.1); CARBON DIOXIDE LEVEL 26 MMOL/L (20-31); CHLORIDE LEVEL 104 MMOL/L (98-107); CREATININE FOR GFR 0.52 MG/DL (0.55-1.30); GLOMERULAR FILTRATION RATE > 90.0 (>60); MAGNESIUM LEVEL 2.0 MG/DL (1.8-2.4); PHOSPHORUS LEVEL 4.3 MG/DL (2.5-4.9); POTASSIUM SERUM 4.6 MMOL/L (3.5-5.1); SODIUM LEVEL 139 MMOL/L (136-145); TRIGLYCERIDES LEVEL 65 MG/DL (<150)
== END ==
LOC: M LAB REF 12:31
PROVIDERS: ATTEND Physician Assistant
DX: E46 Unspecified protein-calorie malnutrition (principal); Q79.60 Ehlers-Danlos syndrome, unspecified; D80.1 Nonfamilial hypogammaglobulinemia; K31.84 Gastroparesis

== ENCOUNTER → 2025-05-27 | Outpatient (CLI) | payer MEDICARE, BC, MEDICAID ==
[~2025-05-27] VITALS: Ht 172.7 cm; Wt 45.3 kg
[2025-05-27 11:52] VITALS: BP 107/71; O2SAT 97
== END ==
LOC: M PAL 11:27
PROVIDERS: ATTEND Physician Assistant
DX: Z51.5 Encounter for palliative care (principal); Q79.60 Ehlers-Danlos syndrome, unspecified; K90.81 Whipple's disease; Z86.79 Personal history of other diseases of the circulatory system; Z76.89 Persons encountering health services in other specified circumstances; Z79.891 Long term (current) use of opiate analgesic; Z88.8 Allergy status to other drugs, medicaments and biological substances; Z88.1 Allergy status to other antibiotic agents; Z88.6 Allergy status to analgesic agent; Z88.5 Allergy status to narcotic agent; Z79.899 Other long term (current) drug therapy

== ENCOUNTER 2025-05-29 22:29 | Emergency (ER) | payer BC, MEDICARE ==
[~2025-05-29] VITALS: Ht 172.7 cm; Wt 44.7 kg
[~2025-05-29 22:29] MED LIST changes: -BUPR1FIL35 SL; -BUTR1DIS2 TOP; -BUTR5DIS TOP; -HYDR50SO2 PO; -MED REC COMMENT; -MIRT-10 PO; -MORP10SO2 PO; -SILVER NITRATE APPLICATOR (1 = QTY 10) As Ordered ONE; -SODIUM CHLORIDE 0.9% 1000 ML XX SCH
[2025-05-29 22:33] VITALS: TEMP 98.3
[2025-05-29] MEDS: NS 500 ML IV ONE (23:20)
[2025-05-29] MEDS: ONDANSETRON 4MG 2ML VIAL IV ONE (23:59)
[2025-05-30] MEDS: HYDROMORPHONE HCL 0.5 MG/0.5 ML SYRINGE IV PRN
[2025-05-30] MEDS ORDERED: MORP10SO2 PO
[2025-05-30] MEDS ORDERED: MED REC COMMENT
[2025-05-30] MEDS ORDERED: MIRT-10 PO (00:10)
[2025-05-30] MEDS ORDERED: HOME MED LIST COMPLETE! XX SCH (00:20)
[2025-05-30 00:47] LABS: BASO # 0.0 10^3/uL (0.0-0.2); BASO % 0.3 % (0.0-1.0); EOS # 0.1 10^3/uL (0.0-0.5); EOS % 2.4 % (0.0-3.0); LYMPH # 2.1 10^3/uL (1.5-5.0); LYMPH % 35.8 % (24.0-44.0); MONO # 0.5 10^3/uL (0.0-0.8); MONO % 8.0 % (2.0-8.0); NEUTROPHILS # 3.1 10^3/uL (1.5-8.5); NEUTROPHILS % 53.3 % (36.0-66.0); PLATELET COUNT, AUTOMATED 181 10^3/uL (150-450)
[2025-05-30 01:13] LABS: ALT/SGPT 159 U/L (7.0-40); AST/SGOT 117 U/L (<34); CALCIUM LEVEL 8.2 MG/DL (8.5-10.1); CARBON DIOXIDE LEVEL 25 MMOL/L (20-31); CHLORIDE LEVEL 106 MMOL/L (98-107); CREATININE FOR GFR 0.59 MG/DL (0.55-1.30); GLOMERULAR FILTRATION RATE > 90.0 (>60); POTASSIUM SERUM 3.8 MMOL/L (3.5-5.1); SODIUM LEVEL 141 MMOL/L (136-145)
[2025-05-30] MEDS: diphenhydrAMINE 50 MG/ML VIAL IV STA ×2 (01:30→03:16)
[2025-05-30] MEDS: MORPHINE 4 MG/ML 1 ML VIAL IV PRN (01:33)
[2025-05-30] MEDS: HYDROcodone/APAP LIQUID 7.5-325 MG 15 ML UDC JT ONE (02:45)
[2025-05-30] MEDS: KETOROLAC 30 MG/ML 1 ML VIAL IV ONE (05:39)
[2025-05-30] MEDS: MORPHINE 10 MG/0.5 ML ORAL CONCENTRATE SOLUTION U/D SL STA (07:04)
[2025-05-30 09:00] VITALS: BP 91/57
[2025-05-30 09:05] VITALS: O2SAT 97
== END 2025-05-30 09:40 | disposition home or self-care (01) ==
LOC: M ED 22:29
DX: R10.9 Unspecified abdominal pain (principal); R74.01 Elevation of levels of liver transaminase levels; R16.1 Splenomegaly, not elsewhere classified; Z88.8 Allergy status to other drugs, medicaments and biological substances; Z79.83 Long term (current) use of bisphosphonates; Z79.899 Other long term (current) drug therapy
CPT/HCPCS: 74150; 80053; 83690; 85025; 96361; 96374; 96375; 96376; 99285; J1171; J1200; J1885; J2405

== ENCOUNTER → 2025-05-29 | Outpatient (CLI) | payer MEDICARE, BC ==
[~2025-05-29] MED LIST changes: +BUPR1FIL35 SL; +BUTR1DIS2 TOP; +BUTR5DIS TOP; +HYDR50SO2 PO; +SILVER NITRATE APPLICATOR (1 = QTY 10) As Ordered ONE; +SODIUM CHLORIDE 0.9% 1000 ML XX SCH
[2025-05-29 14:10] VITALS: TEMP 98.4
[2025-05-29] MEDS: MIDAZOLAM INJ 2 MG/2 ML VIAL IV PRN (16:07)
[2025-05-29] MEDS: NS (Normal Saline) 0.9% 1,000 ML IV SCH (16:08)
[2025-05-29] MEDS: LIDOCAINE 2% JELLY 6 ML SYRINGE TOP SCH (16:15)
[2025-05-29] MEDS: LIDOCAINE 1% MDV 20 ML VIAL SC SCH (16:16)
[2025-05-29 16:20] VITALS: BP 96/57; O2SAT 98
[2025-05-29] MEDS: ISOVUE-300 61% 100 ML VIAL IV SCH (16:22)
== END ==
LOC: M IRPRO 13:57
PROVIDERS: ATTEND Radiology Diagnostic Radiology
DX: T85.598A Other mechanical complication of other gastrointestinal prosthetic devices, implants and grafts, initial encounter (principal)

== ENCOUNTER → 2025-06-02 | Outpatient (REF) | payer BC, MEDICARE ==
[~2025-06-02] MED LIST changes: +MED REC COMMENT; +MIRT-10 PO; +MORP10SO2 PO
[2025-06-02 14:07] LABS: BASO # 0.0 10^3/uL (0.0-0.2); BASO % 0.2 % (0.0-1.0); EOS # 0.2 10^3/uL (0.0-0.5); EOS % 3.5 % (0.0-3.0); LYMPH # 2.0 10^3/uL (1.5-5.0); LYMPH % 40.4 % (24.0-44.0); MONO # 0.3 10^3/uL (0.0-0.8); MONO % 6.4 % (2.0-8.0); NEUTROPHILS # 2.4 10^3/uL (1.5-8.5); NEUTROPHILS % 49.3 % (36.0-66.0); PLATELET COUNT, AUTOMATED 227 10^3/uL (150-450)
[2025-06-02 14:32] LABS: ALT/SGPT 60 U/L (7.0-40); AST/SGOT 24 U/L (<34); CALCIUM LEVEL 8.3 MG/DL (8.5-10.1); CARBON DIOXIDE LEVEL 24 MMOL/L (20-31); CHLORIDE LEVEL 105 MMOL/L (98-107); CREATININE FOR GFR 0.52 MG/DL (0.55-1.30); GLOMERULAR FILTRATION RATE > 90.0 (>60); MAGNESIUM LEVEL 1.7 MG/DL (1.8-2.4); PHOSPHORUS LEVEL 3.9 MG/DL (2.5-4.9); POTASSIUM SERUM 4.3 MMOL/L (3.5-5.1); SODIUM LEVEL 141 MMOL/L (136-145); TRIGLYCERIDES LEVEL 53 MG/DL (<150)
== END ==
LOC: M LAB REF 13:10
PROVIDERS: ATTEND Physician Assistant
DX: D80.1 Nonfamilial hypogammaglobulinemia (principal); K31.84 Gastroparesis; Q79.60 Ehlers-Danlos syndrome, unspecified; E46 Unspecified protein-calorie malnutrition

== ENCOUNTER → 2025-06-06 | Outpatient (CLI) | payer MEDICARE, BC, MEDICAID ==
[~2025-06-06] VITALS: Ht 172.7 cm; Wt 46.6 kg
[2025-06-06 11:44] VITALS: BP 107/70; O2SAT 100
== END ==
LOC: M PAL 11:26
PROVIDERS: ATTEND Physician Assistant
DX: Z51.5 Encounter for palliative care (principal); Q79.60 Ehlers-Danlos syndrome, unspecified; K90.9 Intestinal malabsorption, unspecified; Z86.79 Personal history of other diseases of the circulatory system; R52 Pain, unspecified; R11.0 Nausea; Z79.899 Other long term (current) drug therapy; Z88.1 Allergy status to other antibiotic agents; Z88.8 Allergy status to other drugs, medicaments and biological substances

== ENCOUNTER → 2025-06-09 | Outpatient (REF) | payer MEDICARE, BC, MEDICAID ==
[2025-06-09 12:57] LABS: BASO # 0.0 10^3/uL (0.0-0.2); BASO % 0.2 % (0.0-1.0); EOS # 0.2 10^3/uL (0.0-0.5); EOS % 3.5 % (0.0-3.0); LYMPH # 1.8 10^3/uL (1.5-5.0); LYMPH % 36.7 % (24.0-44.0); MONO # 0.3 10^3/uL (0.0-0.8); MONO % 6.3 % (2.0-8.0); NEUTROPHILS # 2.6 10^3/uL (1.5-8.5); NEUTROPHILS % 53.1 % (36.0-66.0)
[2025-06-09 13:30] LABS: ALT/SGPT 22 U/L (7.0-40); AST/SGOT 21 U/L (<34); CALCIUM LEVEL 8.7 MG/DL (8.5-10.1); CARBON DIOXIDE LEVEL 26 MMOL/L (20-31); CHLORIDE LEVEL 104 MMOL/L (98-107); CREATININE FOR GFR 0.56 MG/DL (0.55-1.30); GLOMERULAR FILTRATION RATE > 90.0 (>60); MAGNESIUM LEVEL 1.9 MG/DL (1.8-2.4); PHOSPHORUS LEVEL 4.4 MG/DL (2.5-4.9); POTASSIUM SERUM 4.6 MMOL/L (3.5-5.1); SODIUM LEVEL 141 MMOL/L (136-145); TRIGLYCERIDES LEVEL 66 MG/DL (<150)
== END ==
LOC: M LAB REF 12:20
PROVIDERS: ATTEND Physician Assistant
DX: D80.1 Nonfamilial hypogammaglobulinemia (principal); K31.84 Gastroparesis; Q79.60 Ehlers-Danlos syndrome, unspecified; E46 Unspecified protein-calorie malnutrition

== ENCOUNTER → 2025-06-12 | Outpatient (CLI) | payer MEDICARE, BC, MEDICAID | LOC: M PAL 09:26 | PROVIDERS: ATTEND Physician Assistant | DX: Z51.5 Encounter for palliative care (principal); Q79.60 Ehlers-Danlos syndrome, unspecified; E46 Unspecified protein-calorie malnutrition; Z86.79 Personal history of other diseases of the circulatory system; Z87.898 Personal history of other specified conditions; Z79.891 Long term (current) use of opiate analgesic; Z88.8 Allergy status to other drugs, medicaments and biological substances; Z88.5 Allergy status to narcotic agent; Z88.1 Allergy status to other antibiotic agents; Z88.0 Allergy status to penicillin; Z88.6 Allergy status to analgesic agent; Z79.899 Other long term (current) drug therapy ==

== ENCOUNTER → 2025-06-16 | Outpatient (REF) | payer MEDICARE, BC, MEDICAID ==
[2025-06-16 15:53] LABS: BASO # 0.0 10^3/uL (0.0-0.2); BASO % 0.2 % (0.0-1.0); EOS # 0.2 10^3/uL (0.0-0.5); EOS % 3.2 % (0.0-3.0); LYMPH # 1.9 10^3/uL (1.5-5.0); LYMPH % 37.5 % (24.0-44.0); MONO # 0.3 10^3/uL (0.0-0.8); MONO % 6.6 % (2.0-8.0); NEUTROPHILS # 2.6 10^3/uL (1.5-8.5); NEUTROPHILS % 52.3 % (36.0-66.0); PLATELET COUNT, AUTOMATED 233 10^3/uL (150-450)
[2025-06-16 16:20] LABS: ALT/SGPT 41 U/L (7.0-40); AST/SGOT 33 U/L (<34); CALCIUM LEVEL 8.8 MG/DL (8.5-10.1); CARBON DIOXIDE LEVEL 29 MMOL/L (20-31); CHLORIDE LEVEL 100 MMOL/L (98-107); CREATININE FOR GFR 0.56 MG/DL (0.55-1.30); GLOMERULAR FILTRATION RATE > 90.0 (>60); MAGNESIUM LEVEL 2.0 MG/DL (1.8-2.4); PHOSPHORUS LEVEL 4.2 MG/DL (2.5-4.9); POTASSIUM SERUM 4.6 MMOL/L (3.5-5.1); SODIUM LEVEL 140 MMOL/L (136-145); TRIGLYCERIDES LEVEL 78 MG/DL (<150)
== END ==
LOC: M LAB REF 14:47
PROVIDERS: ATTEND Physician Assistant
DX: Q79.60 Ehlers-Danlos syndrome, unspecified (principal); E46 Unspecified protein-calorie malnutrition; D50.1 Sideropenic dysphagia; K31.84 Gastroparesis

== ENCOUNTER 2025-06-21 14:07 | Inpatient (IN) | payer MEDICARE, MEDICAID ==
[~2025-06-21] VITALS: Ht 172.7 cm; Wt 45.1 kg
[2025-06-21] MEDS: PROMETHAZINE 25MG/ML 1ML VIAL IV ONE (17:04)
[2025-06-21] MEDS: NS (Normal Saline) 0.9% 1,000 ML IV ONE (17:05)
[2025-06-21 17:15] LABS: BASO # 0.0 10^3/uL (0.0-0.2); BASO % 0.4 % (0.0-1.0); EOS # 0.1 10^3/uL (0.0-0.5); EOS % 2.2 % (0.0-3.0); LYMPH # 2.3 10^3/uL (1.5-5.0); LYMPH % 43.0 % (24.0-44.0); MONO # 0.3 10^3/uL (0.0-0.8); MONO % 6.1 % (2.0-8.0); NEUTROPHILS # 2.6 10^3/uL (1.5-8.5); NEUTROPHILS % 48.3 % (36.0-66.0); PLATELET COUNT, AUTOMATED 189 10^3/uL (150-450)
[2025-06-21 17:33] LABS: KETONE, URINE AUTO RFX 1+ mg/dL (NEGATIVE); MUCUS, URINE RFX LARGE (NEGATIVE); RBC, URINE AUTO RFX 1 /HPF (0-3); SQUAM EPITHELIAL CELL UR AURFX 11 /HPF (0-6); TRANSITIONAL EPITHELIAL AU RFX <1 /HPF
[2025-06-21 17:37] LABS: ALT/SGPT 77 U/L (7.0-40); AST/SGOT 67 U/L (<34); CALCIUM LEVEL 9.5 MG/DL (8.5-10.1); CARBON DIOXIDE LEVEL 26 MMOL/L (20-31); CHLORIDE LEVEL 101 MMOL/L (98-107); CREATININE FOR GFR 0.68 MG/DL (0.55-1.30); GLOMERULAR FILTRATION RATE > 90.0 (>60); POTASSIUM SERUM 3.6 MMOL/L (3.5-5.1); SODIUM LEVEL 140 MMOL/L (136-145)
[2025-06-21 17:53] LABS: HCG, SERUM QUALITATIVE NEGATIVE (NEGATIVE)
[2025-06-21 18:18] LABS: LEUKOCYTE ESTERASE UR AUTO RFX 1+ (NEGATIVE); NITRITE, URINE AUTO RFX POSITIVE (NEGATIVE); WBC, URINE AUTO RFX 63 /HPF (0-3)
[2025-06-21 18:32] LABS: MAGNESIUM LEVEL 1.8 MG/DL (1.8-2.4); PHOSPHORUS LEVEL 4.3 MG/DL (2.5-4.9)
[2025-06-21] MEDS: cefTRIAXone SOD 2 GM in DEXTROSE 5% (D5W) ADV/MINI-BAG 50 ML IV ONE (18:47)
[2025-06-21] MEDS ORDERED: OLANZapine ORAL DISINTEGRATING TAB 5MG PO PRN (21:05)
[2025-06-21] MEDS ORDERED: HYDR50SO2 PO (21:34)
[2025-06-21] MEDS ORDERED: BUPR1FIL35 SL (21:34)
[2025-06-21] MEDS ORDERED: HOME MED LIST COMPLETE! XX SCH (21:35)
[2025-06-21] MEDS ORDERED: hydrOXYzine 10 MG/5 ML SYRUP PO PRN (22:30)
[2025-06-21] MEDS ORDERED: ONDANSETRON 4MG ORAL DISINTEGRATING TAB PO PRN (22:40)
[2025-06-21] MEDS ORDERED: FLEET ENEMA PR PRN (22:40)
[2025-06-21] MEDS ORDERED: DICYCLOMINE INJ 20 MG/2 ML IM PRN (22:40)
[2025-06-21] MEDS ORDERED: NYSTATIN CREAM 15 GM TOP PRN (22:40)
[2025-06-21] MEDS ORDERED: PROMETHAZINE 25MG/ML 1ML VIAL IM PRN (22:40)
[2025-06-21] MEDS ORDERED: BISACODYL 10 MG SUPP PR PRN (22:40)
[2025-06-21] MEDS ORDERED: [UNRECOGNIZED DRUG - OTHER] PO PRN (22:40)
[2025-06-21 22:50] VITALS: BP 115/79; TEMP 99.4; O2SAT 99
[2025-06-21] MEDS: LR 1,000 ML IV SCH (22:58)
[2025-06-21] MEDS: levETIRAcetam INJection 500 MG in DEXTROSE 5% (D5W) MINI-BAG PLU 100 ML IV SCH (22:59)
[2025-06-21] MEDS: BUPRENORPHINE/NALOXONE 2-0.5MG SUBLINGUAL TABLET(SUBOXONE) SL SCH (23:18)
[2025-06-21] MEDS: KETOROLAC 30 MG/ML 1 ML VIAL IV PRN (23:18)
[2025-06-21] MEDS: MEROPENEM 1 GM in IV 1 EA IV SCH (23:21)
[2025-06-21] MEDS ORDERED: OLAN10TA12 PO (23:57)
[2025-06-22 00:05] LABS: CPK CREATINE PHOSPHOKINASE 52 U/L (34-145)
[2025-06-22 01:23] LABS: IRON (FE) 56 UG/DL (50-170); PERCENT SATURATION 14.3 % (13.2-45.0)
[2025-06-22] MEDS: diphenhydrAMINE 50 MG/ML VIAL IV PRN (02:05)
[2025-06-22 04:53] VITALS: BP 91/53; TEMP 98; O2SAT 99
[2025-06-22 06:27] LABS: PLATELET COUNT, AUTOMATED 97 10^3/uL (150-450)
[2025-06-22 06:51] LABS: ALT/SGPT 60 U/L (7.0-40); AST/SGOT 55 U/L (<34); CALCIUM LEVEL 8.3 MG/DL (8.5-10.1); CARBON DIOXIDE LEVEL 27 MMOL/L (20-31); CHLORIDE LEVEL 104 MMOL/L (98-107); CREATININE FOR GFR 0.65 MG/DL (0.55-1.30); GLOMERULAR FILTRATION RATE > 90.0 (>60); POTASSIUM SERUM 3.7 MMOL/L (3.5-5.1); SODIUM LEVEL 141 MMOL/L (136-145)
[2025-06-22 07:38] VITALS: BP 87/49; TEMP 97.4; O2SAT 100
[2025-06-22] MEDS ORDERED: ONDANSETRON 4MG 2ML VIAL IV PRN (07:50)
[2025-06-22] MEDS: ADVAIR HFA 115/21 MCG INHALER INH SCH (08:22)
[2025-06-22] MEDS ORDERED: HEPARIN SOD 5000 UNITS/ML 1 ML VIAL/SYRINGE SC SCH (09:00)
[2025-06-22 09:18] LABS: VITAMIN B12 LEVEL 970 PG/ML (211-911)
[2025-06-22] MEDS: PANTOPRAZOLE 40MG VIAL IV SCH (09:58)
[2025-06-22 11:20] VITALS: BP 100/56; TEMP 98.8; O2SAT 100
[2025-06-22 15:34] VITALS: BP 95/51; TEMP 98.4; O2SAT 100
[2025-06-22] MEDS: PROMETHAZINE 25MG/ML 1ML VIAL IV PRN (15:49)
[2025-06-22] MEDS: INSULIN LISPRO (NovoLOG) PER UNIT SC SCH (18:00)
[2025-06-22] MEDS: AMINO AC/ELECTROLYTE/DEX/CALC 2,000 ML IV SCH (18:04)
[2025-06-22] MEDS: RIVAROXABAN 10MG TAB PO SCH (18:46)
[2025-06-22 19:30] VITALS: BP 97/67; TEMP 97.4; O2SAT 100
[2025-06-22] MEDS: MIRTAZAPINE 15 MG TAB PO SCH (21:00)
[2025-06-22] MEDS: diphenhydrAMINE 50 MG/ML VIAL IV ONE (21:13)
[2025-06-22] MEDS: OLANZapine ORAL DISINTEGRATING TAB 5MG PO SCH (21:13)
[2025-06-22 23:06] VITALS: BP 91/54; TEMP 97.6; O2SAT 99
[2025-06-23 03:29] VITALS: BP 89/51; TEMP 97.3; O2SAT 99
[2025-06-23 05:59] LABS: PLATELET COUNT, AUTOMATED 128 10^3/uL (150-450)
[2025-06-23 06:32] LABS: ALT/SGPT 73 U/L (7.0-40); AST/SGOT 72 U/L (<34); CALCIUM LEVEL 8.9 MG/DL (8.5-10.1); CARBON DIOXIDE LEVEL 29 MMOL/L (20-31); CHLORIDE LEVEL 102 MMOL/L (98-107); CREATININE FOR GFR 0.55 MG/DL (0.55-1.30); GLOMERULAR FILTRATION RATE > 90.0 (>60); POTASSIUM SERUM 4.1 MMOL/L (3.5-5.1); SODIUM LEVEL 139 MMOL/L (136-145)
[2025-06-23 08:00] VITALS: BP 88/50; TEMP 97.7; O2SAT 100
[2025-06-23 12:00] VITALS: BP 95/55; TEMP 97; O2SAT 99
[2025-06-23] MEDS: cefTRIAXone SOD 2 GM in DEXTROSE 5% (D5W) ADV/MINI-BAG 50 ML IV SCH (15:12)
[2025-06-23] MEDS: MULTIVITAMIN -ADULT INJECTION 10 ML, ZINC/COPPER/MANGANESE/SELENIUM 1 ML in AMINO AC/EL... IV SCH (17:31)
[2025-06-23] MEDS: FAT EMULSION IV 250 ML IV ONE (17:32)
[2025-06-23] MEDS: INSULIN LISPRO (NovoLOG) PER UNIT SC SCH (18:03)
[2025-06-23 20:02] VITALS: BP 90/57; TEMP 97.3; O2SAT 98
[2025-06-23] MEDS: ENOXAPARIN 30 MG/0.3 ML SYRINGE (J1650 PER 10MG) SC SCH (21:36)
[2025-06-23 23:27] VITALS: BP 90/51; TEMP 97.6; O2SAT 97
[2025-06-23] MEDS: PROMETHAZINE 25MG/ML 1ML VIAL IV PRN (23:34)
[2025-06-24 04:05] VITALS: BP 92/52; TEMP 96.8; O2SAT 98
[2025-06-24 06:07] LABS: PLATELET COUNT, AUTOMATED 135 10^3/uL (150-450)
[2025-06-24 06:33] LABS: ALT/SGPT 127 U/L (7.0-40); AST/SGOT 134 U/L (<34); CALCIUM LEVEL 9.1 MG/DL (8.5-10.1); CARBON DIOXIDE LEVEL 28 MMOL/L (20-31); CHLORIDE LEVEL 102 MMOL/L (98-107); CREATININE FOR GFR 0.52 MG/DL (0.55-1.30); GLOMERULAR FILTRATION RATE > 90.0 (>60); POTASSIUM SERUM 4.4 MMOL/L (3.5-5.1); SODIUM LEVEL 139 MMOL/L (136-145)
[2025-06-24 07:36] VITALS: BP 94/52; TEMP 98; O2SAT 98
[2025-06-24 08:10] LABS: BASO # 0.0 10^3/uL (0.0-0.2); BASO % 0.5 % (0.0-1.0); EOS # 0.1 10^3/uL (0.0-0.5); EOS % 5.3 % (0.0-3.0); LYMPH # 0.8 10^3/uL (1.5-5.0); LYMPH % 43.9 % (24.0-44.0); MONO # 0.2 10^3/uL (0.0-0.8); MONO % 11.2 % (2.0-8.0); NEUTROPHILS % 38.6 % (36.0-66.0)
[2025-06-24 08:15] LABS: NEUTROPHILS # 0.7 10^3/uL (1.5-8.5)
[2025-06-24 11:52] VITALS: BP 97/52; TEMP 97.8; O2SAT 99
[2025-06-24] MEDS: INSULIN LISPRO (NovoLOG) PER UNIT SC SCH (18:00)
[2025-06-24] MEDS: AMINO AC/ELECTROLYTE/DEX/CALC 2,000 ML IV SCH (18:51)
[2025-06-24] MEDS: FAT EMULSION IV 250 ML IV ONE (18:51)
[2025-06-24 19:50] VITALS: BP 93/51; TEMP 97.2; O2SAT 99
[2025-06-24] MEDS: diphenhydrAMINE 50 MG/ML VIAL IV ONE (20:41)
[2025-06-25 00:23] VITALS: BP 82/62; TEMP 97.5; O2SAT 96
[2025-06-25 04:04] VITALS: BP 88/56; TEMP 98.6; O2SAT 99
[2025-06-25 05:47] LABS: PLATELET COUNT, AUTOMATED 146 10^3/uL (150-450)
[2025-06-25 08:00] VITALS: BP 90/51; TEMP 96.9; O2SAT 18
[2025-06-26] MEDS ORDERED: BUTR5DIS TOP (13:03)
== END 2025-06-25 12:26 | disposition home health service (06) | DRG 698 ==
LOC: M ED 14:07 → M ED INP 21:00 → M PCU 22:25
PROVIDERS: ADMIT Student in an Organized Health Care Education/Training Program; ATTEND Student in an Organized Health Care Education/Training Program
DX: T83.511A Infection and inflammatory reaction due to indwelling urethral catheter, initial encounter (principal); E43 Unspecified severe protein-calorie malnutrition; A41.9 Sepsis, unspecified organism; Q79.60 Ehlers-Danlos syndrome, unspecified; D80.3 Selective deficiency of immunoglobulin G [IgG] subclasses; D61.818 Other pancytopenia; K31.84 Gastroparesis; Y84.6 Urinary catheterization as the cause of abnormal reaction of the patient, or of later complication, without mention of misadventure at the time of the procedure; G90.A Postural orthostatic tachycardia syndrome [POTS]; J45.909 Unspecified asthma, uncomplicated; K21.9 Gastro-esophageal reflux disease without esophagitis; G25.0 Essential tremor; D50.9 Iron deficiency anemia, unspecified; B00.9 Herpesviral infection, unspecified; R74.01 Elevation of levels of liver transaminase levels; F41.9 Anxiety disorder, unspecified; G47.00 Insomnia, unspecified; G90.9 Disorder of the autonomic nervous system, unspecified; R11.0 Nausea; R33.9 Retention of urine, unspecified; K59.00 Constipation, unspecified; N31.9 Neuromuscular dysfunction of bladder, unspecified; B96.1 Klebsiella pneumoniae [K. pneumoniae] as the cause of diseases classified elsewhere; Z93.1 Gastrostomy status; Z79.899 Other long term (current) drug therapy; Z88.1 Allergy status to other antibiotic agents; Z88.8 Allergy status to other drugs, medicaments and biological substances

== ENCOUNTER → 2025-06-26 | Outpatient (CLI) | payer MEDICARE, BC, MEDICAID ==
[~2025-06-26] MED LIST changes: +BUPR1FIL35 SL; +BUTR5DIS TOP; +HYDR50SO2 PO
== END ==
LOC: M PAL 11:20
PROVIDERS: ATTEND Physician Assistant
DX: Z51.5 Encounter for palliative care (principal); Q79.60 Ehlers-Danlos syndrome, unspecified; Z86.79 Personal history of other diseases of the circulatory system; Z92.89 Personal history of other medical treatment; Z79.891 Long term (current) use of opiate analgesic; Z88.5 Allergy status to narcotic agent; Z88.6 Allergy status to analgesic agent; Z88.1 Allergy status to other antibiotic agents; Z79.899 Other long term (current) drug therapy; Z79.83 Long term (current) use of bisphosphonates

== ENCOUNTER → 2025-06-30 | Outpatient (REF) | payer MEDICARE, BC, MEDICAID ==
[2025-06-30 15:25] LABS: BASO # 0.0 10^3/uL (0.0-0.2); BASO % 0.4 % (0.0-1.0); EOS # 0.1 10^3/uL (0.0-0.5); EOS % 1.8 % (0.0-3.0); LYMPH # 2.6 10^3/uL (1.5-5.0); LYMPH % 51.7 % (24.0-44.0); MONO # 0.4 10^3/uL (0.0-0.8); MONO % 7.6 % (2.0-8.0); NEUTROPHILS # 1.9 10^3/uL (1.5-8.5); NEUTROPHILS % 38.3 % (36.0-66.0); PLATELET COUNT, AUTOMATED 180 10^3/uL (150-450)
[2025-06-30 15:57] LABS: ALT/SGPT 96 U/L (7.0-40); AST/SGOT 51 U/L (<34); CALCIUM LEVEL 8.8 MG/DL (8.5-10.1); CARBON DIOXIDE LEVEL 28 MMOL/L (20-31); CHLORIDE LEVEL 103 MMOL/L (98-107); CREATININE FOR GFR 0.48 MG/DL (0.55-1.30); GLOMERULAR FILTRATION RATE > 90.0 (>60); MAGNESIUM LEVEL 1.8 MG/DL (1.8-2.4); PHOSPHORUS LEVEL 3.3 MG/DL (2.5-4.9); POTASSIUM SERUM 4.4 MMOL/L (3.5-5.1); SODIUM LEVEL 141 MMOL/L (136-145); TRIGLYCERIDES LEVEL 41 MG/DL (<150)
== END ==
LOC: M LAB REF 15:04
PROVIDERS: ATTEND Physician Assistant
DX: D80.1 Nonfamilial hypogammaglobulinemia (principal); K31.84 Gastroparesis; E46 Unspecified protein-calorie malnutrition; Q79.60 Ehlers-Danlos syndrome, unspecified

== ENCOUNTER → 2025-07-07 | Outpatient (REF) | payer MEDICARE, BC, MEDICAID ==
[~2025-07-07] MED LIST changes: +BUTR1DIS2 TOP
[2025-07-07 11:33] LABS: BASO # 0.0 10^3/uL (0.0-0.2); BASO % 0.5 % (0.0-1.0); EOS # 0.2 10^3/uL (0.0-0.5); EOS % 4.6 % (0.0-3.0); LYMPH # 2.4 10^3/uL (1.5-5.0); LYMPH % 57.5 % (24.0-44.0); MONO # 0.5 10^3/uL (0.0-0.8); MONO % 11.4 % (2.0-8.0); NEUTROPHILS # 1.1 10^3/uL (1.5-8.5); NEUTROPHILS % 25.8 % (36.0-66.0); PLATELET COUNT, AUTOMATED 206 10^3/uL (150-450)
[2025-07-07 11:56] LABS: ALT/SGPT 31 U/L (7.0-40); AST/SGOT 28 U/L (<34); CALCIUM LEVEL 8.0 MG/DL (8.5-10.1); CARBON DIOXIDE LEVEL 28 MMOL/L (20-31); CHLORIDE LEVEL 107 MMOL/L (98-107); CREATININE FOR GFR 0.52 MG/DL (0.55-1.30); GLOMERULAR FILTRATION RATE > 90.0 (>60); MAGNESIUM LEVEL 1.7 MG/DL (1.8-2.4); PHOSPHORUS LEVEL 4.7 MG/DL (2.5-4.9); POTASSIUM SERUM 4.5 MMOL/L (3.5-5.1); SODIUM LEVEL 144 MMOL/L (136-145); TRIGLYCERIDES LEVEL 71 MG/DL (<150)
== END ==
LOC: M LAB REF 10:40
PROVIDERS: ATTEND Physician Assistant
DX: D80.1 Nonfamilial hypogammaglobulinemia (principal); K31.84 Gastroparesis; Q79.60 Ehlers-Danlos syndrome, unspecified; E46 Unspecified protein-calorie malnutrition

== ENCOUNTER → 2025-07-09 | Outpatient (CLI) | payer MEDICARE, MEDICAID ==
[~2025-07-09] VITALS: Ht 172.7 cm; Wt 46.9 kg
[2025-07-09 14:26] VITALS: BP 112/66; O2SAT 98
== END ==
LOC: M PAL 13:48
PROVIDERS: ATTEND Physician Assistant
DX: Z51.5 Encounter for palliative care (principal); Q79.60 Ehlers-Danlos syndrome, unspecified; Z86.79 Personal history of other diseases of the circulatory system; Z79.891 Long term (current) use of opiate analgesic; Z88.0 Allergy status to penicillin; Z88.1 Allergy status to other antibiotic agents; Z88.6 Allergy status to analgesic agent; Z88.5 Allergy status to narcotic agent; Z79.899 Other long term (current) drug therapy

== ENCOUNTER → 2025-07-14 | Outpatient (REF) | payer MEDICARE, MEDICAID ==
[2025-07-14 14:47] LABS: BASO # 0.0 10^3/uL (0.0-0.2); BASO % 0.4 % (0.0-1.0); EOS # 0.1 10^3/uL (0.0-0.5); EOS % 2.2 % (0.0-3.0); LYMPH # 1.9 10^3/uL (1.5-5.0); LYMPH % 42.0 % (24.0-44.0); MONO # 0.4 10^3/uL (0.0-0.8); MONO % 9.2 % (2.0-8.0); NEUTROPHILS # 2.0 10^3/uL (1.5-8.5); NEUTROPHILS % 46.0 % (36.0-66.0); PLATELET COUNT, AUTOMATED 170 10^3/uL (150-450)
[2025-07-14 14:50] LABS: ALT/SGPT 22 U/L (7.0-40); AST/SGOT 24 U/L (<34); CALCIUM LEVEL 8.8 MG/DL (8.5-10.1); CARBON DIOXIDE LEVEL 28 MMOL/L (20-31); CHLORIDE LEVEL 105 MMOL/L (98-107); CREATININE FOR GFR 0.49 MG/DL (0.55-1.30); GLOMERULAR FILTRATION RATE > 90.0 (>60); MAGNESIUM LEVEL 1.9 MG/DL (1.8-2.4); PHOSPHORUS LEVEL 4.1 MG/DL (2.5-4.9); POTASSIUM SERUM 4.8 MMOL/L (3.5-5.1); SODIUM LEVEL 141 MMOL/L (136-145); TRIGLYCERIDES LEVEL 34 MG/DL (<150)
== END ==
LOC: M LAB REF 13:17
PROVIDERS: ATTEND Physician Assistant
DX: E46 Unspecified protein-calorie malnutrition (principal); Q79.60 Ehlers-Danlos syndrome, unspecified; D80.1 Nonfamilial hypogammaglobulinemia; K31.84 Gastroparesis

== ENCOUNTER → 2025-07-22 | Outpatient (REF) | payer MEDICARE, MEDICAID ==
[2025-07-22 12:22] LABS: BASO # 0.0 10^3/uL (0.0-0.2); BASO % 0.2 % (0.0-1.0); EOS # 0.2 10^3/uL (0.0-0.5); EOS % 4.0 % (0.0-3.0); LYMPH # 1.6 10^3/uL (1.5-5.0); LYMPH % 37.4 % (24.0-44.0); MONO # 0.4 10^3/uL (0.0-0.8); MONO % 10.0 % (2.0-8.0); NEUTROPHILS # 2.1 10^3/uL (1.5-8.5); NEUTROPHILS % 48.2 % (36.0-66.0); PLATELET COUNT, AUTOMATED 183 10^3/uL (150-450)
[2025-07-22 12:46] LABS: ALT/SGPT 28 U/L (7.0-40); AST/SGOT 28 U/L (<34); CALCIUM LEVEL 8.8 MG/DL (8.5-10.1); CARBON DIOXIDE LEVEL 24 MMOL/L (20-31); CHLORIDE LEVEL 108 MMOL/L (98-107); CREATININE FOR GFR 0.46 MG/DL (0.55-1.30); GLOMERULAR FILTRATION RATE > 90.0 (>60); MAGNESIUM LEVEL 1.8 MG/DL (1.8-2.4); PHOSPHORUS LEVEL 3.4 MG/DL (2.5-4.9); POTASSIUM SERUM 4.4 MMOL/L (3.5-5.1); SODIUM LEVEL 139 MMOL/L (136-145); TRIGLYCERIDES LEVEL 89 MG/DL (<150)
== END ==
LOC: M LAB REF 10:56
PROVIDERS: ATTEND Physician Assistant
DX: D80.1 Nonfamilial hypogammaglobulinemia (principal); K31.84 Gastroparesis; Q79.60 Ehlers-Danlos syndrome, unspecified; E46 Unspecified protein-calorie malnutrition

== ENCOUNTER → 2025-07-24 | Outpatient (CLI) | payer MEDICARE, MEDICAID | LOC: M PAL 13:40 | PROVIDERS: ATTEND Physician Assistant | DX: Z51.5 Encounter for palliative care (principal); Q79.60 Ehlers-Danlos syndrome, unspecified; K91.2 Postsurgical malabsorption, not elsewhere classified; Z86.79 Personal history of other diseases of the circulatory system; Z79.891 Long term (current) use of opiate analgesic; Z88.6 Allergy status to analgesic agent; Z88.8 Allergy status to other drugs, medicaments and biological substances; Z79.899 Other long term (current) drug therapy ==

== ENCOUNTER → 2025-07-28 | Outpatient (REF) | payer MEDICARE, MEDICAID ==
[2025-07-28 14:25] LABS: BASO # 0.0 10^3/uL (0.0-0.2); BASO % 0.4 % (0.0-1.0); EOS # 0.2 10^3/uL (0.0-0.5); EOS % 3.1 % (0.0-3.0); LYMPH # 2.4 10^3/uL (1.5-5.0); LYMPH % 44.6 % (24.0-44.0); MONO # 0.5 10^3/uL (0.0-0.8); MONO % 9.6 % (2.0-8.0); NEUTROPHILS # 2.3 10^3/uL (1.5-8.5); NEUTROPHILS % 42.1 % (36.0-66.0); PLATELET COUNT, AUTOMATED 185 10^3/uL (150-450)
[2025-07-28 14:43] LABS: ALT/SGPT 17 U/L (7.0-40); AST/SGOT 22 U/L (<34); CALCIUM LEVEL 8.7 MG/DL (8.5-10.1); CARBON DIOXIDE LEVEL 24 MMOL/L (20-31); CHLORIDE LEVEL 105 MMOL/L (98-107); CREATININE FOR GFR 0.50 MG/DL (0.55-1.30); GLOMERULAR FILTRATION RATE > 90.0 (>60); MAGNESIUM LEVEL 1.8 MG/DL (1.8-2.4); PHOSPHORUS LEVEL 3.7 MG/DL (2.5-4.9); POTASSIUM SERUM 4.7 MMOL/L (3.5-5.1); SODIUM LEVEL 139 MMOL/L (136-145); TRIGLYCERIDES LEVEL 50 MG/DL (<150)
== END ==
LOC: M LAB REF 12:22
PROVIDERS: ATTEND Physician Assistant
DX: D80.1 Nonfamilial hypogammaglobulinemia (principal); K31.84 Gastroparesis; E46 Unspecified protein-calorie malnutrition; Q79.60 Ehlers-Danlos syndrome, unspecified

== ENCOUNTER → 2025-08-04 | Outpatient (REF) | payer MEDICARE, MEDICAID ==
[2025-08-04 11:09] LABS: BASO # 0.0 10^3/uL (0.0-0.2); BASO % 0.3 % (0.0-1.0); EOS # 0.2 10^3/uL (0.0-0.5); EOS % 6.0 % (0.0-3.0); LYMPH # 2.0 10^3/uL (1.5-5.0); LYMPH % 60.4 % (24.0-44.0); MONO # 0.3 10^3/uL (0.0-0.8); MONO % 8.9 % (2.0-8.0); NEUTROPHILS % 24.1 % (36.0-66.0); PLATELET COUNT, AUTOMATED 224 10^3/uL (150-450)
[2025-08-04 11:34] LABS: ALT/SGPT 20 U/L (7.0-40); AST/SGOT 22 U/L (<34); CALCIUM LEVEL 8.4 MG/DL (8.5-10.1); CARBON DIOXIDE LEVEL 26 MMOL/L (20-31); CHLORIDE LEVEL 107 MMOL/L (98-107); CREATININE FOR GFR 0.56 MG/DL (0.55-1.30); GLOMERULAR FILTRATION RATE > 90.0 (>60); MAGNESIUM LEVEL 1.9 MG/DL (1.8-2.4); PHOSPHORUS LEVEL 5.0 MG/DL (2.5-4.9); POTASSIUM SERUM 4.4 MMOL/L (3.5-5.1); SODIUM LEVEL 138 MMOL/L (136-145); TRIGLYCERIDES LEVEL 76 MG/DL (<150)
[2025-08-04 11:54] LABS: NEUTROPHILS # 0.8 10^3/uL (1.5-8.5)
== END ==
LOC: M LAB REF 10:31
PROVIDERS: ATTEND Physician Assistant
DX: D80.1 Nonfamilial hypogammaglobulinemia (principal); K31.84 Gastroparesis; Q79.60 Ehlers-Danlos syndrome, unspecified; E46 Unspecified protein-calorie malnutrition

== ENCOUNTER → 2025-08-11 | Outpatient (REF) | payer MEDICARE, MEDICAID ==
[2025-08-11 11:54] LABS: BASO # 0.0 10^3/uL (0.0-0.2); BASO % 0.4 % (0.0-1.0); EOS # 0.2 10^3/uL (0.0-0.5); EOS % 3.8 % (0.0-3.0); LYMPH # 2.2 10^3/uL (1.5-5.0); LYMPH % 49.6 % (24.0-44.0); MONO # 0.5 10^3/uL (0.0-0.8); MONO % 10.9 % (2.0-8.0); NEUTROPHILS # 1.6 10^3/uL (1.5-8.5); NEUTROPHILS % 35.3 % (36.0-66.0); PLATELET COUNT, AUTOMATED 228 10^3/uL (150-450)
[2025-08-11 12:24] LABS: ALT/SGPT 19 U/L (7.0-40); AST/SGOT 23 U/L (<34); CALCIUM LEVEL 8.5 MG/DL (8.5-10.1); CARBON DIOXIDE LEVEL 26 MMOL/L (20-31); CHLORIDE LEVEL 105 MMOL/L (98-107); CREATININE FOR GFR 0.51 MG/DL (0.55-1.30); GLOMERULAR FILTRATION RATE > 90.0 (>60); MAGNESIUM LEVEL 1.8 MG/DL (1.8-2.4); PHOSPHORUS LEVEL 4.8 MG/DL (2.5-4.9); POTASSIUM SERUM 4.5 MMOL/L (3.5-5.1); SODIUM LEVEL 137 MMOL/L (136-145); TRIGLYCERIDES LEVEL 84 MG/DL (<150)
== END ==
LOC: M LAB REF 11:10
PROVIDERS: ATTEND Physician Assistant
DX: Q79.60 Ehlers-Danlos syndrome, unspecified (principal); E46 Unspecified protein-calorie malnutrition; D80.1 Nonfamilial hypogammaglobulinemia; K31.84 Gastroparesis

== ENCOUNTER → 2025-08-18 | Outpatient (REF) | payer MEDICARE, MEDICAID ==
[2025-08-18 14:52] LABS: BASO # 0.0 10^3/uL (0.0-0.2); BASO % 0.4 % (0.0-1.0); EOS # 0.2 10^3/uL (0.0-0.5); EOS % 3.8 % (0.0-3.0); LYMPH # 1.9 10^3/uL (1.5-5.0); LYMPH % 41.2 % (24.0-44.0); MONO # 0.3 10^3/uL (0.0-0.8); MONO % 7.2 % (2.0-8.0); NEUTROPHILS # 2.2 10^3/uL (1.5-8.5); NEUTROPHILS % 47.4 % (36.0-66.0); PLATELET COUNT, AUTOMATED 215 10^3/uL (150-450)
[2025-08-18 15:17] LABS: ALT/SGPT 21 U/L (7.0-40); AST/SGOT 22 U/L (<34); CALCIUM LEVEL 8.7 MG/DL (8.5-10.1); CARBON DIOXIDE LEVEL 28 MMOL/L (20-31); CHLORIDE LEVEL 101 MMOL/L (98-107); CREATININE FOR GFR 0.50 MG/DL (0.55-1.30); GLOMERULAR FILTRATION RATE > 90.0 (>60); MAGNESIUM LEVEL 1.9 MG/DL (1.8-2.4); PHOSPHORUS LEVEL 4.3 MG/DL (2.5-4.9); POTASSIUM SERUM 4.4 MMOL/L (3.5-5.1); SODIUM LEVEL 138 MMOL/L (136-145); TRIGLYCERIDES LEVEL 69 MG/DL (<150)
== END ==
LOC: M LAB REF 11:58
PROVIDERS: ATTEND Physician Assistant
DX: D80.1 Nonfamilial hypogammaglobulinemia (principal); K31.84 Gastroparesis

== ENCOUNTER → 2025-09-01 | Outpatient (CLI) | payer MEDICARE, MEDICAID ==
[~2025-09-01] VITALS: Ht 172.7 cm; Wt 44.8 kg
[~2025-09-01] MED LIST changes: +BUTR10DI TOP
[2025-09-01 10:09] VITALS: BP 122/83; O2SAT 99
== END ==
LOC: M PAL 09:57
PROVIDERS: ATTEND Physician Assistant
DX: Z51.5 Encounter for palliative care (principal); Q79.60 Ehlers-Danlos syndrome, unspecified; Z99.2 Dependence on renal dialysis; I38 Endocarditis, valve unspecified; Z79.891 Long term (current) use of opiate analgesic; Z88.1 Allergy status to other antibiotic agents; Z88.6 Allergy status to analgesic agent; Z88.5 Allergy status to narcotic agent; Z79.899 Other long term (current) drug therapy

== ENCOUNTER → 2025-09-02 | Outpatient (REF) | payer MEDICARE, MEDICAID ==
[2025-09-02 15:16] LABS: BASO # 0.0 10^3/uL (0.0-0.2); BASO % 0.2 % (0.0-1.0); EOS # 0.2 10^3/uL (0.0-0.5); EOS % 2.8 % (0.0-3.0); LYMPH # 2.1 10^3/uL (1.5-5.0); LYMPH % 32.4 % (24.0-44.0); MONO # 0.4 10^3/uL (0.0-0.8); MONO % 6.0 % (2.0-8.0); NEUTROPHILS # 3.8 10^3/uL (1.5-8.5); NEUTROPHILS % 58.4 % (36.0-66.0); PLATELET COUNT, AUTOMATED 238 10^3/uL (150-450)
[2025-09-02 15:46] LABS: ALT/SGPT 21 U/L (7.0-40); AST/SGOT 20 U/L (<34); CALCIUM LEVEL 8.3 MG/DL (8.5-10.1); CARBON DIOXIDE LEVEL 25 MMOL/L (20-31); CHLORIDE LEVEL 106 MMOL/L (98-107); CREATININE FOR GFR 0.55 MG/DL (0.55-1.30); GLOMERULAR FILTRATION RATE > 90.0 (>60); MAGNESIUM LEVEL 1.9 MG/DL (1.8-2.4); PHOSPHORUS LEVEL 3.6 MG/DL (2.5-4.9); POTASSIUM SERUM 4.8 MMOL/L (3.5-5.1); SODIUM LEVEL 141 MMOL/L (136-145); TRIGLYCERIDES LEVEL 43 MG/DL (<150)
== END ==
LOC: M LAB REF 13:21
PROVIDERS: ATTEND Physician Assistant
DX: D80.1 Nonfamilial hypogammaglobulinemia (principal); K31.84 Gastroparesis; Q79.60 Ehlers-Danlos syndrome, unspecified; E46 Unspecified protein-calorie malnutrition

== ENCOUNTER → 2025-09-15 | Outpatient (REF) | payer MEDICARE, MEDICAID ==
[~2025-09-15] MED LIST changes: +BUTR20DI TOP; +ONDA-284 PO
[2025-09-15 12:55] LABS: BASO # 0.0 10^3/uL (0.0-0.2); BASO % 0.3 % (0.0-1.0); EOS # 0.4 10^3/uL (0.0-0.5); EOS % 6.4 % (0.0-3.0); LYMPH # 1.7 10^3/uL (1.5-5.0); LYMPH % 27.8 % (24.0-44.0); MONO # 0.4 10^3/uL (0.0-0.8); MONO % 7.1 % (2.0-8.0); NEUTROPHILS # 3.5 10^3/uL (1.5-8.5); NEUTROPHILS % 58.2 % (36.0-66.0); PLATELET COUNT, AUTOMATED 308 10^3/uL (150-450)
[2025-09-15 13:15] LABS: ALT/SGPT 55 U/L (7.0-40); AST/SGOT 30 U/L (<34); CALCIUM LEVEL 8.2 MG/DL (8.5-10.1); CARBON DIOXIDE LEVEL 26 MMOL/L (20-31); CHLORIDE LEVEL 108 MMOL/L (98-107); CREATININE FOR GFR 0.43 MG/DL (0.55-1.30); GLOMERULAR FILTRATION RATE > 90.0 (>60); MAGNESIUM LEVEL 1.9 MG/DL (1.8-2.4); PHOSPHORUS LEVEL 3.0 MG/DL (2.5-4.9); POTASSIUM SERUM 4.5 MMOL/L (3.5-5.1); SODIUM LEVEL 142 MMOL/L (136-145); TRIGLYCERIDES LEVEL 48 MG/DL (<150)
== END ==
LOC: M LAB REF 12:23
PROVIDERS: ATTEND Physician Assistant
DX: D80.1 Nonfamilial hypogammaglobulinemia (principal); K31.84 Gastroparesis; Q79.60 Ehlers-Danlos syndrome, unspecified

== ENCOUNTER → 2025-09-16 | Outpatient (CLI) | payer MEDICARE, MEDICAID ==
[~2025-09-16] VITALS: Ht 177.8 cm; Wt 46.8 kg
[2025-09-16 13:42] VITALS: BP 92/62; O2SAT 100
== END ==
LOC: M PAL 13:26
PROVIDERS: ATTEND Physician Assistant
DX: Z51.5 Encounter for palliative care (principal); Q79.60 Ehlers-Danlos syndrome, unspecified; Z86.79 Personal history of other diseases of the circulatory system; Z79.891 Long term (current) use of opiate analgesic; Z88.1 Allergy status to other antibiotic agents; Z88.0 Allergy status to penicillin; Z88.6 Allergy status to analgesic agent; Z79.899 Other long term (current) drug therapy; Z79.83 Long term (current) use of bisphosphonates

== ENCOUNTER → 2025-09-22 | Outpatient (REF) | payer MEDICARE, MEDICAID ==
[2025-09-22 11:49] LABS: BASO # 0.0 10^3/uL (0.0-0.2); BASO % 0.8 % (0.0-1.0); EOS # 0.5 10^3/uL (0.0-0.5); EOS % 9.5 % (0.0-3.0); LYMPH # 2.1 10^3/uL (1.5-5.0); LYMPH % 40.7 % (24.0-44.0); MONO # 0.4 10^3/uL (0.0-0.8); MONO % 7.1 % (2.0-8.0); NEUTROPHILS # 2.1 10^3/uL (1.5-8.5); NEUTROPHILS % 41.9 % (36.0-66.0); PLATELET COUNT, AUTOMATED 386 10^3/uL (150-450)
[2025-09-22 12:21] LABS: ALT/SGPT 31 U/L (7.0-40); AST/SGOT 21 U/L (<34); CALCIUM LEVEL 8.6 MG/DL (8.5-10.1); CARBON DIOXIDE LEVEL 26 MMOL/L (20-31); CHLORIDE LEVEL 106 MMOL/L (98-107); CREATININE FOR GFR 0.54 MG/DL (0.55-1.30); GLOMERULAR FILTRATION RATE > 90.0 (>60); MAGNESIUM LEVEL 1.9 MG/DL (1.8-2.4); PHOSPHORUS LEVEL 4.1 MG/DL (2.5-4.9); POTASSIUM SERUM 4.2 MMOL/L (3.5-5.1); SODIUM LEVEL 141 MMOL/L (136-145); TRIGLYCERIDES LEVEL 79 MG/DL (<150)
== END ==
LOC: M LAB REF 11:23
PROVIDERS: ATTEND Physician Assistant
DX: D80.1 Nonfamilial hypogammaglobulinemia (principal); K31.84 Gastroparesis; Q79.60 Ehlers-Danlos syndrome, unspecified; E46 Unspecified protein-calorie malnutrition

== ENCOUNTER → 2025-09-30 | Outpatient (CLI) | payer MEDICARE, MEDICAID ==
[2025-09-30 16:54] LABS: BASO # 0.0 10^3/uL (0.0-0.2); BASO % 0.4 % (0.0-1.0); EOS # 0.4 10^3/uL (0.0-0.5); EOS % 7.3 % (0.0-3.0); LYMPH # 2.1 10^3/uL (1.5-5.0); LYMPH % 38.0 % (24.0-44.0); MONO # 0.3 10^3/uL (0.0-0.8); MONO % 5.7 % (2.0-8.0); NEUTROPHILS # 2.7 10^3/uL (1.5-8.5); NEUTROPHILS % 48.1 % (36.0-66.0); PLATELET COUNT, AUTOMATED 235 10^3/uL (150-450)
[2025-09-30 17:07] LABS: ALT/SGPT 44 U/L (7.0-40); AST/SGOT 31 U/L (<34); CALCIUM LEVEL 9.3 MG/DL (8.5-10.1); CARBON DIOXIDE LEVEL 28 MMOL/L (20-31); CHLORIDE LEVEL 103 MMOL/L (98-107); CREATININE FOR GFR 0.53 MG/DL (0.55-1.30); GLOMERULAR FILTRATION RATE > 90.0 (>60); MAGNESIUM LEVEL 2.0 MG/DL (1.8-2.4); POTASSIUM SERUM 4.4 MMOL/L (3.5-5.1); SODIUM LEVEL 140 MMOL/L (136-145); TRIGLYCERIDES LEVEL 76 MG/DL (<150)
[2025-10-05 09:18] LABS: IgG SERUM (part of Subclasses) 986.0 mg/dL (600-1640)
== END ==
LOC: M LAB 16:20
PROVIDERS: ATTEND Internal Medicine Infectious Disease
DX: D80.1 Nonfamilial hypogammaglobulinemia (principal); Z79.899 Other long term (current) drug therapy; Z78.9 Other specified health status

== ENCOUNTER → 2025-10-06 | Outpatient (REF) | payer MEDICARE, MEDICAID ==
[2025-10-06 14:20] LABS: AMORPHOUS SEDIMENT SMALL (NEGATIVE); APPEARANCE, URINE TURBID (CLEAR); BACTERIA, URINE AUTO 2+ (NEGATIVE); BILIRUBIN, URINE AUTO NEGATIVE (NEGATIVE); BLOOD, URINE BLOOD NEGATIVE (NEGATIVE); GLUCOSE, URINE (UA) AUTO NEGATIVE (NEGATIVE); KETONE, URINE AUTO NEGATIVE (NEGATIVE); LEUKOCYTE ESTERASE, URINE AUTO 2+ (NEGATIVE); MUCUS, URINE LARGE (NEGATIVE); NITRITE, URINE AUTO NEGATIVE (NEGATIVE); PROTEIN, URINE AUTO 1+ mg/dL (NEGATIVE); RBC, URINE AUTO 0 /HPF (0-3); SPECIFIC GRAVITY URINE AUTO 1.024 (1.002-1.035); SQUAMOUS EPITHELIAL CELL UR AU 16 /HPF (0-6); UROBILINOGEN, URINE AUTO 0.2 mg/dL (0.0-2.0); WBC, URINE AUTO 32 /HPF (0-3)
[2025-10-06 15:10] LABS: BASO # 0.0 10^3/uL (0.0-0.2); BASO % 0.4 % (0.0-1.0); EOS # 0.3 10^3/uL (0.0-0.5); EOS % 6.9 % (0.0-3.0); LYMPH # 2.2 10^3/uL (1.5-5.0); LYMPH % 49.2 % (24.0-44.0); MONO # 0.4 10^3/uL (0.0-0.8); MONO % 9.4 % (2.0-8.0); NEUTROPHILS # 1.5 10^3/uL (1.5-8.5); NEUTROPHILS % 33.9 % (36.0-66.0); PLATELET COUNT, AUTOMATED 201 10^3/uL (150-450)
[2025-10-06 15:38] LABS: ALT/SGPT 295 U/L (7.0-40); AST/SGOT 314 U/L (<34); CALCIUM LEVEL 8.3 MG/DL (8.5-10.1); CARBON DIOXIDE LEVEL 24 MMOL/L (20-31); CHLORIDE LEVEL 107 MMOL/L (98-107); CREATININE FOR GFR 0.52 MG/DL (0.55-1.30); GLOMERULAR FILTRATION RATE > 90.0 (>60); MAGNESIUM LEVEL 1.8 MG/DL (1.8-2.4); PHOSPHORUS LEVEL 3.7 MG/DL (2.5-4.9); POTASSIUM SERUM 4.3 MMOL/L (3.5-5.1); SODIUM LEVEL 141 MMOL/L (136-145); TRIGLYCERIDES LEVEL 46 MG/DL (<150)
== END ==
LOC: M LAB REF 12:43
PROVIDERS: ATTEND Physician Assistant
DX: Z87.440 Personal history of urinary (tract) infections (principal); E46 Unspecified protein-calorie malnutrition; Q79.60 Ehlers-Danlos syndrome, unspecified; D80.1 Nonfamilial hypogammaglobulinemia; K31.84 Gastroparesis; Z79.899 Other long term (current) drug therapy

== ENCOUNTER → 2025-10-10 | Outpatient (REF) | payer MEDICARE, MEDICAID | LOC: M LAB REF 13:15 | PROVIDERS: ATTEND Physician Assistant | DX: N39.0 Urinary tract infection, site not specified (principal) ==

== ENCOUNTER → 2025-10-13 | Outpatient (REF) | payer MEDICARE, MEDICAID ==
[2025-10-13 13:16] LABS: BASO # 0.0 10^3/uL (0.0-0.2); BASO % 0.6 % (0.0-1.0); EOS # 0.3 10^3/uL (0.0-0.5); EOS % 8.7 % (0.0-3.0); LYMPH # 1.8 10^3/uL (1.5-5.0); LYMPH % 52.8 % (24.0-44.0); MONO # 0.3 10^3/uL (0.0-0.8); MONO % 7.9 % (2.0-8.0); NEUTROPHILS # 1.0 10^3/uL (1.5-8.5); NEUTROPHILS % 29.7 % (36.0-66.0); PLATELET COUNT, AUTOMATED 208 10^3/uL (150-450)
[2025-10-13 13:35] LABS: ALT/SGPT 261 U/L (7.0-40); AST/SGOT 96 U/L (<34); CALCIUM LEVEL 8.1 MG/DL (8.5-10.1); CARBON DIOXIDE LEVEL 25 MMOL/L (20-31); CHLORIDE LEVEL 104 MMOL/L (98-107); CREATININE FOR GFR 0.51 MG/DL (0.55-1.30); GLOMERULAR FILTRATION RATE > 90.0 (>60); MAGNESIUM LEVEL 1.9 MG/DL (1.8-2.4); PHOSPHORUS LEVEL 4.3 MG/DL (2.5-4.9); POTASSIUM SERUM 4.4 MMOL/L (3.5-5.1); SODIUM LEVEL 139 MMOL/L (136-145); TRIGLYCERIDES LEVEL 57 MG/DL (<150)
== END ==
LOC: M LAB REF 11:22
PROVIDERS: ATTEND Physician Assistant
DX: Q79.60 Ehlers-Danlos syndrome, unspecified (principal); E46 Unspecified protein-calorie malnutrition; D80.1 Nonfamilial hypogammaglobulinemia; K31.84 Gastroparesis

== ENCOUNTER → 2025-10-20 | Outpatient (CLI) | payer MEDICARE, MEDICAID ==
[2025-10-20 15:40] LABS: BASO # 0.0 10^3/uL (0.0-0.2); BASO % 0.4 % (0.0-1.0); EOS # 0.2 10^3/uL (0.0-0.5); EOS % 3.2 % (0.0-3.0); LYMPH # 1.7 10^3/uL (1.5-5.0); LYMPH % 34.1 % (24.0-44.0); MONO # 0.5 10^3/uL (0.0-0.8); MONO % 10.7 % (2.0-8.0); NEUTROPHILS # 2.6 10^3/uL (1.5-8.5); NEUTROPHILS % 51.6 % (36.0-66.0); PLATELET COUNT, AUTOMATED 241 10^3/uL (150-450)
[2025-10-20 16:13] LABS: ALT/SGPT 65 U/L (7.0-40); AST/SGOT 29 U/L (<34); CALCIUM LEVEL 9.3 MG/DL (8.5-10.1); CARBON DIOXIDE LEVEL 27 MMOL/L (20-31); CHLORIDE LEVEL 100 MMOL/L (98-107); CREATININE FOR GFR 0.59 MG/DL (0.55-1.30); GLOMERULAR FILTRATION RATE > 90.0 (>60); MAGNESIUM LEVEL 1.9 MG/DL (1.8-2.4); PHOSPHORUS LEVEL 3.5 MG/DL (2.5-4.9); POTASSIUM SERUM 4.3 MMOL/L (3.5-5.1); SODIUM LEVEL 136 MMOL/L (136-145); TRIGLYCERIDES LEVEL 70 MG/DL (<150)
== END ==
LOC: M LAB 15:04
PROVIDERS: ATTEND Physician Assistant
DX: D80.1 Nonfamilial hypogammaglobulinemia (principal); K31.84 Gastroparesis; Q79.60 Ehlers-Danlos syndrome, unspecified; E46 Unspecified protein-calorie malnutrition; Z51.5 Encounter for palliative care; Z99.2 Dependence on renal dialysis; Z86.79 Personal history of other diseases of the circulatory system; Z79.891 Long term (current) use of opiate analgesic; Z88.6 Allergy status to analgesic agent; Z88.5 Allergy status to narcotic agent; Z88.1 Allergy status to other antibiotic agents; Z79.899 Other long term (current) drug therapy

== ENCOUNTER → 2025-10-20 | Outpatient (CLI) | payer MEDICARE, MEDICAID | LOC: M PAL 13:30 | PROVIDERS: ATTEND Physician Assistant | DX: Z51.5 Encounter for palliative care (principal); Q79.60 Ehlers-Danlos syndrome, unspecified; Z99.2 Dependence on renal dialysis; Z86.79 Personal history of other diseases of the circulatory system; Z79.891 Long term (current) use of opiate analgesic; Z88.6 Allergy status to analgesic agent; Z88.5 Allergy status to narcotic agent; Z88.1 Allergy status to other antibiotic agents; Z79.899 Other long term (current) drug therapy ==

== ENCOUNTER 2025-10-23 15:03 | Outpatient (CLI) | payer MEDICARE, MEDICAID ==
[~2025-10-23] VITALS: Ht 172.7 cm; Wt 46.8 kg
[~2025-10-23 15:03] MED LIST changes: +ALBUTEROL SULFATE 2.5 MG/0.5 ML INH CONCENTRATE NEB SOLN INH PRN; +EPINEPHrine INJ 1 MG/ML 1ML AMP IM PRN; +diphenhydrAMINE 50 MG/ML VIAL IV PRN
[2025-10-23] MEDS: dexAMETHasone 4 MG/ML 1 ML VIAL IV ONE (15:31)
[2025-10-23] MEDS: diphenhydrAMINE 50 MG/ML VIAL IV ONE (15:32)
[2025-10-23 15:48] VITALS: BP 125/67; O2SAT 96
[2025-10-23 16:38] VITALS: BP 106/76; O2SAT 100
== END 2025-10-23 16:38 | disposition home or self-care (01) ==
LOC: M INFU 15:03
DX: D50.8 Other iron deficiency anemias (principal); Z88.1 Allergy status to other antibiotic agents; Z88.8 Allergy status to other drugs, medicaments and biological substances
CPT/HCPCS: 96365; J1100; J1200; J1439

== ENCOUNTER → 2025-10-27 | Outpatient (REF) | payer MEDICARE, MEDICAID ==
[~2025-10-27] MED LIST changes: -ALBUTEROL SULFATE 2.5 MG/0.5 ML INH CONCENTRATE NEB SOLN INH PRN; -EPINEPHrine INJ 1 MG/ML 1ML AMP IM PRN; -diphenhydrAMINE 50 MG/ML VIAL IV PRN
[2025-10-27 11:14] LABS: BASO # 0.0 10^3/uL (0.0-0.2); BASO % 0.3 % (0.0-1.0); EOS # 0.2 10^3/uL (0.0-0.5); EOS % 3.2 % (0.0-3.0); LYMPH # 2.0 10^3/uL (1.5-5.0); LYMPH % 33.1 % (24.0-44.0); MONO # 0.5 10^3/uL (0.0-0.8); MONO % 7.5 % (2.0-8.0); NEUTROPHILS # 3.4 10^3/uL (1.5-8.5); NEUTROPHILS % 55.7 % (36.0-66.0); PLATELET COUNT, AUTOMATED 253 10^3/uL (150-450)
[2025-10-27 11:43] LABS: ALT/SGPT 41 U/L (7.0-40); AST/SGOT 30 U/L (<34); CALCIUM LEVEL 8.6 MG/DL (8.5-10.1); CARBON DIOXIDE LEVEL 26 MMOL/L (20-31); CHLORIDE LEVEL 103 MMOL/L (98-107); CREATININE FOR GFR 0.45 MG/DL (0.55-1.30); GLOMERULAR FILTRATION RATE > 90.0 (>60); MAGNESIUM LEVEL 1.9 MG/DL (1.8-2.4); PHOSPHORUS LEVEL 2.8 MG/DL (2.5-4.9); POTASSIUM SERUM 4.3 MMOL/L (3.5-5.1); SODIUM LEVEL 138 MMOL/L (136-145); TRIGLYCERIDES LEVEL 81 MG/DL (<150)
== END ==
LOC: M LAB REF 10:51
PROVIDERS: ATTEND Physician Assistant
DX: Q79.60 Ehlers-Danlos syndrome, unspecified (principal); E46 Unspecified protein-calorie malnutrition; D80.1 Nonfamilial hypogammaglobulinemia; K31.84 Gastroparesis

== ENCOUNTER 2025-10-30 15:25 | Outpatient (CLI) | payer MEDICARE, MEDICAID ==
[~2025-10-30 15:25] MED LIST changes: +ALBUTEROL SULFATE 2.5 MG/0.5 ML INH CONCENTRATE NEB SOLN INH PRN; +EPINEPHrine INJ 1 MG/ML 1ML AMP IM PRN; +diphenhydrAMINE 50 MG/ML VIAL IV PRN
[2025-10-30 15:30] VITALS: BP 104/57; O2SAT 98
[2025-10-30] MEDS: diphenhydrAMINE 50 MG/ML VIAL IV ONE (15:35)
[2025-10-30 16:35] VITALS: BP 89/62; O2SAT 100
== END 2025-10-30 16:35 ==
LOC: M INFU 15:25
DX: D50.8 Other iron deficiency anemias (principal); Z88.8 Allergy status to other drugs, medicaments and biological substances; Z88.1 Allergy status to other antibiotic agents
CPT/HCPCS: 96365; 96375; J1100; J1200; J1439

== ENCOUNTER → 2025-11-04 | Outpatient (REF) | payer MEDICARE, MEDICAID ==
[~2025-11-04] MED LIST changes: -ALBUTEROL SULFATE 2.5 MG/0.5 ML INH CONCENTRATE NEB SOLN INH PRN; -EPINEPHrine INJ 1 MG/ML 1ML AMP IM PRN; -diphenhydrAMINE 50 MG/ML VIAL IV PRN
[2025-11-04 11:44] LABS: BASO # 0.0 10^3/uL (0.0-0.2); BASO % 0.4 % (0.0-1.0); EOS # 0.3 10^3/uL (0.0-0.5); EOS % 5.0 % (0.0-3.0); LYMPH # 2.4 10^3/uL (1.5-5.0); LYMPH % 45.2 % (24.0-44.0); MONO # 0.4 10^3/uL (0.0-0.8); MONO % 7.6 % (2.0-8.0); NEUTROPHILS # 2.2 10^3/uL (1.5-8.5); NEUTROPHILS % 41.4 % (36.0-66.0); PLATELET COUNT, AUTOMATED 249 10^3/uL (150-450)
[2025-11-04 12:16] LABS: ALT/SGPT 47 U/L (7.0-40); AST/SGOT 34 U/L (<34); CALCIUM LEVEL 8.7 MG/DL (8.5-10.1); CARBON DIOXIDE LEVEL 25 MMOL/L (20-31); CHLORIDE LEVEL 103 MMOL/L (98-107); CREATININE FOR GFR 0.58 MG/DL (0.55-1.30); GLOMERULAR FILTRATION RATE > 90.0 (>60); MAGNESIUM LEVEL 1.7 MG/DL (1.8-2.4); PHOSPHORUS LEVEL 2.5 MG/DL (2.5-4.9); POTASSIUM SERUM 4.3 MMOL/L (3.5-5.1); SODIUM LEVEL 137 MMOL/L (136-145); TRIGLYCERIDES LEVEL 68 MG/DL (<150)
== END ==
LOC: M LAB REF 10:29
PROVIDERS: ATTEND Physician Assistant
DX: D80.1 Nonfamilial hypogammaglobulinemia (principal); E46 Unspecified protein-calorie malnutrition; Q79.60 Ehlers-Danlos syndrome, unspecified; K31.84 Gastroparesis

== ENCOUNTER → 2025-11-10 | Outpatient (CLI) | payer MEDICARE, MEDICAID ==
[2025-11-10 13:50] VITALS: TEMP 98.5
[2025-11-10] MEDS: MIDAZOLAM INJ 2 MG/2 ML VIAL IV PRN (14:43)
[2025-11-10] MEDS: SODIUM CHLORIDE 0.9% 1000 ML XX SCH (14:44)
[2025-11-10] MEDS: NS (Normal Saline) 0.9% 1,000 ML IV SCH (14:44)
[2025-11-10] MEDS: LIDOCAINE 2% JELLY 6 ML SYRINGE TOP SCH (14:49)
[2025-11-10] MEDS: ISOVUE-300 61% 100 ML VIAL IV SCH (14:50)
[2025-11-10] MEDS: LIDOCAINE 1% MDV 20 ML VIAL SC SCH (14:50)
[2025-11-10 15:15] VITALS: BP 90/53; O2SAT 100
== END ==
LOC: M IRPRO 13:39
PROVIDERS: ATTEND Radiology Diagnostic Radiology
DX: T85.598A Other mechanical complication of other gastrointestinal prosthetic devices, implants and grafts, initial encounter (principal); K31.84 Gastroparesis; G90.A Postural orthostatic tachycardia syndrome [POTS]; Z79.899 Other long term (current) drug therapy
CPT/HCPCS: 49451; 80053; 83735; 84100; 84478; 85025; 99152; C1729; J2250; J3010; Q9967

== ENCOUNTER → 2025-11-10 | Outpatient (REF) | payer MEDICARE, MEDICAID ==
[2025-11-10 10:52] LABS: PLATELET COUNT, AUTOMATED 206 10^3/uL (150-450)
[2025-11-10 11:22] LABS: ALT/SGPT 100 U/L (7.0-40); AST/SGOT 49 U/L (<34); CALCIUM LEVEL 8.4 MG/DL (8.5-10.1); CARBON DIOXIDE LEVEL 25 MMOL/L (20-31); CHLORIDE LEVEL 105 MMOL/L (98-107); CREATININE FOR GFR 0.60 MG/DL (0.55-1.30); GLOMERULAR FILTRATION RATE > 90.0 (>60); MAGNESIUM LEVEL 1.8 MG/DL (1.8-2.4); PHOSPHORUS LEVEL 1.7 MG/DL (2.5-4.9); POTASSIUM SERUM 3.7 MMOL/L (3.5-5.1); SODIUM LEVEL 139 MMOL/L (136-145); TRIGLYCERIDES LEVEL 90 MG/DL (<150)
[2025-11-10 11:49] LABS: BASOPHILS 1 % (0-1); EOSINOPHILS 6 % (0-3); LYMPHOCYTES 67 % (16-44); MONOCYTES 7 % (0-5); NEUTROPHILS 19 % (28-66)
[2025-11-10 11:50] LABS: PLATELET ESTIMATE NORMAL (NORMAL)
== END ==
LOC: M LAB REF 10:11
PROVIDERS: ATTEND Physician Assistant
DX: Q79.60 Ehlers-Danlos syndrome, unspecified (principal); E46 Unspecified protein-calorie malnutrition; D80.1 Nonfamilial hypogammaglobulinemia; K31.84 Gastroparesis

== ENCOUNTER → 2025-11-17 | Outpatient (REF) | payer MEDICARE, MEDICAID ==
[2025-11-17 16:36] LABS: BASO # 0.0 10^3/uL (0.0-0.2); BASO % 0.5 % (0.0-1.0); EOS # 0.2 10^3/uL (0.0-0.5); EOS % 3.9 % (0.0-3.0); LYMPH # 1.9 10^3/uL (1.5-5.0); LYMPH % 50.0 % (24.0-44.0); MONO # 0.3 10^3/uL (0.0-0.8); MONO % 7.3 % (2.0-8.0); NEUTROPHILS # 1.5 10^3/uL (1.5-8.5); NEUTROPHILS % 38.0 % (36.0-66.0); PLATELET COUNT, AUTOMATED 132 10^3/uL (150-450)
[2025-11-17 17:00] LABS: ALT/SGPT 50 U/L (7.0-40); AST/SGOT 25 U/L (<34); CALCIUM LEVEL 8.2 MG/DL (8.5-10.1); CARBON DIOXIDE LEVEL 25 MMOL/L (20-31); CHLORIDE LEVEL 108 MMOL/L (98-107); CREATININE FOR GFR 0.53 MG/DL (0.55-1.30); GLOMERULAR FILTRATION RATE > 90.0 (>60); MAGNESIUM LEVEL 1.6 MG/DL (1.8-2.4); PHOSPHORUS LEVEL 2.5 MG/DL (2.5-4.9); POTASSIUM SERUM 4.5 MMOL/L (3.5-5.1); SODIUM LEVEL 141 MMOL/L (136-145); TRIGLYCERIDES LEVEL 74 MG/DL (<150)
== END ==
LOC: M LAB REF 16:09
PROVIDERS: ATTEND Physician Assistant
DX: D80.1 Nonfamilial hypogammaglobulinemia (principal); K31.84 Gastroparesis; Q79.60 Ehlers-Danlos syndrome, unspecified; E46 Unspecified protein-calorie malnutrition